=== PATIENT | female | born 1955 | race Caucasian/White ===

== ENCOUNTER 2023-05-05 08:32 | Outpatient (OUT) | payer MEDICARE, OTHER, SELFPAY ==
--- NOTE | 2023-05-05 08:33 | VEIN_ITS ---
Patient: OXANA CASTRO Exam Date: 05/05/2023 : 1955 Gender:F Ordering : NON-STAFF PHYSICIAN Admission #: [id number] Family : Order #: [id number] CLICK HERE TO VIEW EXAM RADIOLOGY REPORT PROCEDURE: FACILITY EST COMPREHENSIVE VEIN CENTER - OFFICE VISIT INITIAL COMPARISON: None. PROGRESS NOTES: [age] year old female who presents with a 5 year history of bulging dilated veins, leg pain, itching, swelling, edema. The patient's left leg symptoms are worse than the right. There has been a progression of symptoms over time with development of stasis dermatitis, cellulitis, chronic edema, hyperpigmentation, and recurrent wounds. This increases with prolonged leg dependency. The patient describes an improvement with rest, elevation, compression stockings. The patient denies any signs and symptoms to suggest arterial ischemia. The patient describes a family history varicose veins on paternal side. The patient has drinking and smoking history of : Occasional alcohol consumption; no tobacco use. Patient has a past medical history significant for diabetes mellitus, obesity, endometrial cancer, deep vein thrombus. The patient describes prior episode of deep venous thrombus. See separate history and physical for medication list. Prior stripping of left small saphenous vein 3 years ago. Current use of compression stockings. After review of nurse notes, history and physical exam I discussed at length the pathophysiology of venous hypertension and possible treatments, therapies and strategies available. We discussed at length the importance of elevating the lower extremities above the level of the heart, increased physical activity and compression stocking use. Ultrasound venous reflux study performed today was discussed at length with the patient. The report demonstrates abnormally dilated and incompetent great saphenous vein bilaterally. Incompetent right small saphenous vein, but dilation does not meet criteria. Markedly dilated and incompetent calf glazier apprentice veins bilaterally. Numerous dilated incompetent branch saphenous varicosities bilaterally. PHYSICAL EXAM: The right leg demonstrates numerous varicosities, scattered spider veins, reoccurring cellulitis/dermatitis, marked edema, marked skin discoloration. The left leg demonstrates numerous varicosities, scattered spider veins, reoccurring wound no current open ulceration, marked edema, marked skin discoloration. Both thighs, legs and feet were symmetrically warm to the touch. Good posterior tibial and dorsalis pedis pulses were present bilaterally. VEIN/[facility] Facility EST Comprehensive IMPRESSION: 1. Marked bilateral lower extremity venous insufficiency 2. Bilateral lower extremity varicose veins 3. Marked bilateral lower extremity subcutaneous edema 4. No flow significant arterial disease 5. CEAP: C5, EC, AP, WI PLAN: 1. Continued use of compression stockings 2. Elevated legs and increased physical activity symptomatic relief 3. Endovenous laser ablation of great saphenous vein bilaterally. 4. Endovenous laser ablation of abnormal calf glazier apprentice vein bilaterally. 5. Re-evaluation of right small saphenous vein after closure of great saphenous vein and glazier apprentice vein. 6. Microfoam chemical ablation of incompetent branch saphenous varicosities bilaterally. 7. Sclerotherapy as needed. Nurse notes, history and physical were reviewed and confirmed, see attached forms. The nurse was present throughout the physical exam and consultation Dictated by: Alan Hernández M.D. on 05/05/2023 at 10:23 Approved by: Alan Hernández M.D. on 05/05/2023 at 10:58
--- NOTE | 2023-05-05 08:33 | VEIN_ITS ---
Patient: OXANA CASTRO Exam Date: 05/05/2023 : 1955 Gender:F Ordering : NON-STAFF PHYSICIAN Admission #: [id number] Family : Order #: [id number] CLICK HERE TO VIEW EXAM RADIOLOGY REPORT PROCEDURE: VC EXT VENOUS REFLUX KOBI LMTD COMPARISON: None. INDICATIONS: I83.813 Pain due to varicose veins of bilateral leg veins TECHNIQUE: Duplex imaging of the lower extremity to assess the deep and superficial venous system for the presence of deep or superficial venous incompetence and to document the location and severity of disease. The study includes evaluation of the great saphenous vein (GSV), anterior accessory saphenous vein (AASV) and small saphenous vein (SSV). Patient scanned in reverse Trendelenburg and standing. FINDINGS: RIGHT LOWER EXTREMITY: Saphenofemoral Junction Reflux: Yes 12.7mm 3.2 sec GSV: Diam (mm) Reflux/ Time (sec) Proximal Thigh 9.7 Yes 2.5 Mid Thigh 8.3 Yes 2.9 Distal Thigh 7.5 Yes 3.1 Prox Calf 7.7 Yes 0.9 Mid Calf 7.3 Yes 1.8 Saphenopopliteal Junction Reflux: 3.3mm Yes 0.9 SSV: Proximal Calf 3.1 Yes 1.6 Mid Calf 4.1 No AASV: Not present Proximal Thigh Mid Thigh Distal Thigh Thrombi: No acute or chronic thrombus visualized Compressibility: Normal Flow: Normal Preforator: Dist/med calf 4.6mm with 1.4s reflux. Tech Note: Incompetent SFJ and GSV. Hypoechoic avascular structure visualized in pop fossa measuring 2.9 x 1.7 x 4.3 cm. Patent varicose vein mid/med calf 4.6mm with 2.0s reflux. Patent varicose vein mid/med thigh 4.7mm with 0s reflux. LEFT LOWER EXTREMITY: Saphenofemoral Junction Reflux: Yes 1.3 mm 3.3 sec GSV: Diam (mm) Reflux/Time (sec) Proximal Thigh 10.7 Yes 2.5 Mid Thigh 2.3 No Distal Thigh 1.9 No Prox Calf 5.8 Yes 2.7 Mid Calf 4.8 Yes 1.4 Saphenopopliteal Junction Relux: N/A SSV: Proximal Calf N/A Mid Calf N/A AASV: Proximal Thigh 5.3 No Mid Thigh 3.0 No Distal Thigh Thrombi: No acute or chronic thrombus visualized Compressibility: Normal Flow: Normal Coal Trimmer: Mid/med calf 7.5mm with 2.0s reflux. Tech Note: Incompetent SFJ and GSV. SSV has been previously ablated. Patent varicose vein mid/med calf 10.1mm with 0.9s reflux. Patent varicose vein dist/med thigh 0.4mm with 1.3s reflux. Patent varicose vein mid/med thigh off of GSV 10.0 mm with 1.5s reflux. CONCLUSION: 1. Abnormally dilated and incompetent great saphenous vein bilaterally. 2. Abnormally dilated and incompetent fork lift technician vein within lower leg bilaterally adjacent to recurring wounds and cellulitis. 3. Numerous incompetent and abnormally dilated branch saphenous varicosities bilaterally. Dictated by: Alan Hernández M.D. on 05/05/2023 at 09:49 Approved by: Alan Hernández M.D. on 05/05/2023 at 10:13
== END 2023-05-05 08:33 | disposition home or self-care (01) ==
DX: I83.813 Varicose veins of bilateral lower extremities with pain (principal); R60.0 Localized edema; I89.0 Lymphedema, not elsewhere classified; I87.2 Venous insufficiency (chronic) (peripheral); I83.893 Varicose veins of bilateral lower extremities with other complications; L03.90 Cellulitis, unspecified
CPT/HCPCS: 93970; G0463

== ENCOUNTER 2023-05-08 12:26 | Outpatient (OUT) | payer MEDICARE, OTHER, SELFPAY ==
--- NOTE | 2023-05-08 | VEIN_ITS ---
The [address] [address] Patient Name: OXANA CASTRO MRN: [id number] date: 1955 Sex: F Assigned Patient Location: Current Patient Location: Accession/Order Number: [id number] Exam Date: 05/08/2023 12:35 Report Date: 05/08/2023 14:26 At the request of: COLTON HAMLIN Procedure: VC Endovenous Ablation 1VeinRT EXAMINATION: VC Endovenous Ablation 1VeinRT HISTORY: Pain due to varicose veins of bilateral legs I83.813 The risks and benefits of the procedure had been previously discussed, and were rediscussed at length. Informed written consent was obtained. Lavinia Godfrey RN and Yulisa Sellers RDMS assisted. Time out procedure was performed. The right lower extremity was prepared and draped in the usual sterile fashion to allow knee flexion in the sterile field. Duplex ultrasound probe was draped in a sterile cover, sterile transmission gel was used. Venous mapping was performed with the areas of dilation and large tributaries marked. The total length was 61 cm from the entry for cm above the medial malleolus to 3 cm below the saphenofemoral junction. The diameter of the greater saphenous vein ranged from 9.7 mm. A 30 gauge needle and 1% buffered lidocaine was used to anesthetize the entry site. A 4 mm incision was made with a scalpel and the saphenous vein was entered percutaneously under direct ultrasound guidance with a micropuncture set, a single stick was successful in gaining access. A micro-guide wire was inserted and the needle removed. A micro-set including a dilator was inserted over the microwire and the needle and dilator were removed. A guide wire was inserted through the micro-set and guided through the saphenous vein to the saphenofemoral junction. The dilator was removed and an introducer sheath was inserted over the wire until the end of the sheath entered the saphenofemoral junction. The dilator and wire were removed and the 600 micron fiber was introduced and placed and positioned so that it extended beyond the sheath and was 3 cm distal to the saphenofemoral femoral junction. Final position of the fiber was determined by ultrasound guidance and duplex imaging. Tumescent anesthetic was delivered by ultrasound guidance. 300 cc of fluid was delivered along the entire course of the saphenous vein. The solution consisted of 1000 cc of normal saline with 40 mL of 1% lidocaine and 20 mL of sodium bicarbonate. A final positioning check was made. The energy source was turned on by means of the foot pedal and the fiber and sheath were withdrawn. The total number of Joules delivered was 3417. The laser was active for coronary 27seconds under continuous pulse, average laser use of 8 J. Laser start time 1:30 PM, 05/08/2023. Laser stop time 1:38 PM, 05/08/2023. A duplex ultrasound revealed compressibility and flow at the saphenofemoral junction immediately after the procedure. Hemostasis at the access site was achieved. The skin incision of the saphenous vein was closed with a 4 x 4. A compression stocking was applied. Postop instructions were given. A follow up appointment was recommended and scheduled. The patient tolerated the procedure well. Electronically authenticated by: MAVIS HERNANDEZ Date: 05/08/2023 14:26
[2023-05-08] MEDS: 0.9 % SODIUM CHLORIDE 500 ML, LIDOCAINE HCL 20 ML, SODIUM BICARBONATE 10 MEQ INJ (13:31)
[2023-05-08] MEDS: LIDOCAINE HCL 10 ML, SODIUM BICARBONATE 1 MEQ INJ (13:32)
== END 2023-05-08 12:27 | disposition home or self-care (01) ==
LOC: VC 12:26
PROVIDERS: PCP Radiology Diagnostic Radiology; Visit Provider Radiology Diagnostic Radiology
DX: I80.01 Phlebitis and thrombophlebitis of superficial vessels of right lower extremity (principal)
CPT/HCPCS: 36478

== ENCOUNTER 2023-05-11 09:02 | Outpatient (OUT) | payer MEDICARE, OTHER, SELFPAY ==
--- NOTE | 2023-05-11 09:06 | VEIN_ITS ---
Patient: OXANA CASTRO Exam Date: 05/11/2023 : 1955 Gender:F Ordering : DR COLTON HAMLIN M.D. Admission #: [id number] Family : Order #: [id number] CLICK HERE TO VIEW EXAM RADIOLOGY REPORT PROCEDURE: VC EXT VENOUS RT LMTD COMPARISON: None. INDICATIONS: I80.01 Phlebitis of superficial veins of rt lower extremity TECHNIQUE: Lower extremity samson scale and Duplex Doppler evaluation of the deep venous system from the inguinal ligament through the calf veins. FINDINGS: REGION: Right lower extremity. THROMBI: Negative for DVT. Heat induced thrombus in right GSV 2.0 cm from SFJ and extends to distal calf. Associated perf proximal lower leg also thrombosed. COMPRESSIBILITY: Non-compressible segments. FLOW: Areas of no flow. OTHER: CONCLUSION: 1. Successful post ablation occlusion of right great saphenous vein. Dictated by: Alan Hernández M.D. on 05/11/2023 at 13:20 Approved by: Alan Hernández M.D. on 05/11/2023 at 13:21
--- NOTE | 2023-05-11 09:06 | VEIN_ITS ---
Patient: OXANA CASTRO Exam Date: 05/11/2023 : 1955 Gender:F Ordering : DR COLTON HAMLIN M.D. Admission #: [id number] Family : Order #: [id number] CLICK HERE TO VIEW EXAM RADIOLOGY REPORT PROCEDURE: FACILITY EST LMTD VEIN CENTER - OFFICE VISIT FOLLOW UP COMPARISON: None. PROGRESS NOTES: The patient reports improvement in leg symptoms. There has been interval reduction in varicosities. The patient has followed our recommendations to walk 20-30 minutes once or twice per day since the procedure. Physical exam demonstrates decrease in varicosities of the leg. Persistent incompetent varicosities are identified along the right and left leg. Review of the ultrasound performed the same day demonstrates occlusive thrombus extending throughout the treated vein(s), see separate report, consistent with a successful ablation. No thrombus extending into or beyond the saphenofemoral junction. The patient expressed a desire to proceed with treatment of remaining incompetent varicosities. The patient was informed that treatment was a process and would require several procedures/sessions. VEIN/ Facility EST LMTD IMPRESSION: 1. Successful ablation of the right great saphenous vein(s). 2. Persistent incompetent varicose veins and bilateral lower extremity symptoms. PLAN: Endovenous laser ablation of left great saphenous vein. Nurse notes, history and physical were reviewed and confirmed, see attached forms. The nurse was present throughout the physical exam and consultation Dictated by: Alan Hernández M.D. on 05/11/2023 at 13:21 Approved by: Alan Hernández M.D. on 05/11/2023 at 13:23
== END 2023-05-11 09:03 | disposition home or self-care (01) ==
LOC: VC 09:04
PROVIDERS: PCP Radiology Diagnostic Radiology; Visit Provider Radiology Diagnostic Radiology
DX: I80.01 Phlebitis and thrombophlebitis of superficial vessels of right lower extremity (principal)
CPT/HCPCS: 93971; G0463

== ENCOUNTER 2023-05-20 10:25 | Outpatient (OUT) | payer MEDICARE, OTHER, SELFPAY ==
--- NOTE | 2023-05-20 | VEIN_ITS ---
The [address] [address] Patient Name: OXANA CASTRO MRN: [id number] date: 1955 Sex: F Assigned Patient Location: Current Patient Location: Accession/Order Number: [id number] Exam Date: 05/20/2023 10:30 Report Date: 05/20/2023 12:45 At the request of: COLTON HAMLIN Procedure: VC Endovenous Ablation 1VeinLT EXAMINATION: VC Endovenous Ablation 1VeinLT HISTORY: Pain due to varicose veins of bilateral legs I83.813 The risks and benefits of the procedure had been previously discussed, and were rediscussed at length. Informed written consent was obtained. Julien Panda RN and uYlisa Sellers RDMS assisted. Time out procedure was performed. The left lower extremity was prepared and draped in the usual sterile fashion to allow knee flexion in the sterile field. Duplex ultrasound probe was draped in a sterile cover, sterile transmission gel was used. Venous mapping was performed with the areas of dilation and large tributaries marked. The total length was 32 cm from the entry distal thigh to 3 cm below the Saphenofemoral junction. The diameter of the greater saphenous vein ranged from 10.7 mm. A 30 gauge needle and 1% buffered lidocaine was used to anesthetize the entry site. A 4 mm incision was made with a scalpel and the saphenous vein was entered percutaneously under direct ultrasound guidance with a micropuncture set, a single stick was successful in gaining access. A micro-guide wire was inserted and the needle removed. A micro-set including a dilator was inserted over the microwire and the needle and dilator were removed. A guide wire was inserted through the micro-set and guided through the saphenous vein to the saphenofemoral junction. The dilator was removed and an introducer sheath was inserted over the wire until the end of the sheath entered the saphenofemoral junction. The dilator and wire were removed and the 600 micron fiber was introduced and placed and positioned so that it extended beyond the sheath and was 3 cm distal to the saphenofemoral or saphenopopliteal junction. Final position of the fiber was determined by ultrasound guidance and duplex imaging. Tumescent anesthetic was delivered by ultrasound guidance. 2025 cc of fluid was delivered along the entire course of the saphenous vein. The solution consisted of 1000 cc of normal saline with 40 mL of 1% lidocaine and 20 mL of sodium bicarbonate. A final positioning check was made. The energy source was turned on by means of the foot pedal and the fiber and sheath were withdrawn. The total number of Joules delivered was 1643. The laser was active for 205 seconds under continuous pulse, average laser use of 8 J. Laser start time 11:17 AM, 05/20/2023. Laser stop time 11:20 AM, 05/20/2023. A duplex ultrasound revealed compressibility and flow at the saphenofemoral junction immediately after the procedure. Hemostasis at the access site was achieved. The skin incision of the saphenous vein was closed with a 4 x 4. A compression stocking was applied. Postop instructions were given. A follow up appointment was recommended and scheduled. The patient tolerated the procedure well. Electronically authenticated by: MAVIS HERNANDEZ Date: 05/20/2023 12:45
[2023-05-20] MEDS: 0.9 % SODIUM CHLORIDE 500 ML, LIDOCAINE HCL 20 ML, SODIUM BICARBONATE 10 MEQ INJ (10:57)
[2023-05-20] MEDS: LIDOCAINE HCL 10 ML, SODIUM BICARBONATE 1 MEQ INJ (10:59)
== END 2023-05-20 10:26 | disposition home or self-care (01) ==
LOC: VC 10:25
PROVIDERS: PCP Radiology Diagnostic Radiology; Visit Provider Radiology Diagnostic Radiology
DX: I83.813 Varicose veins of bilateral lower extremities with pain (principal); I80.02 Phlebitis and thrombophlebitis of superficial vessels of left lower extremity
CPT/HCPCS: 36478

== ENCOUNTER 2023-05-27 09:26 | Outpatient (OUT) | payer MEDICARE, OTHER, SELFPAY ==
--- NOTE | 2023-05-27 09:27 | VEIN_ITS ---
Patient: OXANA CASTRO Exam Date: 05/27/2023 : 1955 Gender:F Ordering : DR MICHELE MCCALL M.D. Admission #: [id number] Family : Order #: [id number] CLICK HERE TO VIEW EXAM RADIOLOGY REPORT PROCEDURE: VC EXT VENOUS LT LIMITED COMPARISON: None. INDICATIONS: I80.02 Phlebitis of superficial veins of left lower extremity TECHNIQUE: Lower extremity samson scale and Duplex Doppler evaluation of the deep venous system from the inguinal ligament through the calf veins. FINDINGS: REGION: Left lower extremity. THROMBI: Negative for DVT. Heat induced thrombus in left GSV 1.3 cm from SFJ and extends to distal thigh/medial knee. COMPRESSIBILITY: Non-compressible segments. FLOW: Absent flow corresponding to thrombus CONCLUSION: Post ablation occlusion of the left great saphenous vein with heat induced thrombus 1.3 cm from the saphenofemoral junction Dictated by: Michele Mccall MD on 05/27/2023 at 09:46 Approved by: Michele Mccall MD on 05/27/2023 at 09:46
--- NOTE | 2023-05-27 09:27 | VEIN_ITS ---
Patient: OXANA CASTRO Exam Date: 05/27/2023 : 1955 Gender:F Ordering : DR MICHELE MCCALL M.D. Admission #: [id number] Family : Order #: [id number] CLICK HERE TO VIEW EXAM RADIOLOGY REPORT PROCEDURE: [facility] EST LMTD VEIN CENTER - OFFICE VISIT FOLLOW UP [facility]. PROGRESS NOTES: The patient reports improvement no problems following intravenous laser ablation of the left great saphenous vein. The patient does report some improvement in her initial presenting symptoms. The patient does continue to wear her compression wraps as directed. The patient has followed our recommendations to walk 20-30 minutes once or twice per day since the procedure. Physical exam demonstrates extensive hemosiderin staining in swelling involving both legs below the knee extending into the ankles and feet. No areas of erythema or warmth. No significant bruising from the procedure. No evidence of cellulitis or thrombophlebitis Review of the ultrasound performed the same day demonstrates occlusive thrombus extending throughout the treated left great saphenous vein with heat induced thrombus 1.3 cm from the saphenofemoral junction. The patient expressed a desire to proceed with treatment of incompetent perforating veins. VEIN/[facility] EST LMTD IMPRESSION: 1. Successful ablation of the left great saphenous vein 2. Persistent incompetent bilateral perforating veins PLAN: Intravenous laser ablation bilateral incompetent perforating veins Nurse notes, history and physical were reviewed and confirmed, see attached forms. The nurse was present throughout the physical exam and consultation Dictated by: Michele Mccall MD on 05/27/2023 at 10:06 Approved by: Michele Mccall MD on 05/27/2023 at 10:09
== END 2023-05-27 09:27 | disposition home or self-care (01) ==
LOC: VC 09:26
PROVIDERS: PCP Radiology Diagnostic Radiology; Visit Provider Radiology Diagnostic Radiology
DX: I80.02 Phlebitis and thrombophlebitis of superficial vessels of left lower extremity (principal)
CPT/HCPCS: 93971; G0463

== ENCOUNTER 2023-06-04 10:28 | Outpatient (OUT) | payer MEDICARE, OTHER, SELFPAY ==
--- NOTE | 2023-06-04 10:29 | VEIN_ITS ---
[address] [address] Patient Name: OXANA CASTRO MRN: [id number] date: 1955 Sex: F Assigned Patient Location: Current Patient Location: Accession/Order Number: [id number] Exam Date: 06/04/2023 10:30 Report Date: 06/04/2023 11:56 At the request of: COLTON HAMLIN Procedure: VC Endovenous Perf Ablation RT EXAMINATION: VC Endovenous Perf Ablation RT COMPARISON: INDICATIONS: I83.813 Pain due to varicose veins of bilateral legs OPERATIVE REPORT: Diagnosis: Superficial venous reflux, incompetent perforating veins Procedure: Endovenous laser ablation of the right store assistant(s) Procedure: The patient was positioned supine on the table and the leg was prepped and draped to allow for visualization during venous access. A sterile cover was draped over a 16 mhz ultrasound probe. Venous mapping was performed prior to the procedure noting location and size of vessel(s). Chemical Radiation Technician vein 1: Distal medial right lower extremity. The diameter of the vein ranged from 4.6 mm's below the muscular fascia to 4.6 mm's at the entry point. Using a 30 gauge needle the entry site was anesthetized with 0.5 cc of 1% buffered lidocaine. Access was gained percutaneously, with a 21-gauge needle, into the store assistant vein under ultrasound guidance. The needle was advanced into the desired position and the pre-measured 400-micron fiber was then inserted into the needle and locked in place. The position of the fiber was imaged with ultrasound guidance. The fiber tip was visualized to be 10 mm from the deep vessel. An anesthetic solution of 2 cc 1% buffered lidocaine was delivered along the course of the vein under ultrasound guidance using a syringe. A final positioning check of the laser fiber tip was performed. The laser was activated by means of a foot-pedal and the fiber and needle were withdrawn together in accordance to the desired joules per treatment area/spot weld. 3 areas/spot welds were performed, and the total number of joules delivered was 193. The total time of energy delivery was 24 seconds. A duplex ultrasound revealed compressibility and flow of the deep system immediately after the procedure. Hemostasis of the access site was achieved and dressed. A 20-30 mm compression stocking over coban was placed on the treated leg. Post-Op instructions were given, and a follow-up appointment was made. CONCLUSION: 1. Technically successful endovenous laser ablation of 1 distal right lower extremity store assistant vein. Electronically authenticated by: MAVIS HERNANDEZ Date: 06/04/2023 11:56
[2023-06-04] MEDS: LIDOCAINE HCL 20 ML, SODIUM BICARBONATE 2 MEQ INJ (11:13)
== END 2023-06-04 10:29 | disposition home or self-care (01) ==
LOC: VC 10:28
PROVIDERS: PCP Radiology Diagnostic Radiology; Visit Provider Radiology Diagnostic Radiology
DX: I83.813 Varicose veins of bilateral lower extremities with pain (principal)
CPT/HCPCS: 36478

== ENCOUNTER 2023-06-18 09:06 | Outpatient (OUT) | payer MEDICARE, OTHER, SELFPAY ==
--- NOTE | 2023-06-18 09:37 | VEIN_ITS ---
Patient: OXANA CASTRO Exam Date: 06/18/2023 : 1955 Gender:F Ordering : DR MICHELE MCCALL M.D. Admission #: [id number] Family : Order #: [id number] CLICK HERE TO VIEW EXAM RADIOLOGY REPORT PROCEDURE: FACILITY EST LMTD VEIN CENTER - OFFICE VISIT FOLLOW UP COMPARISON: FACILITY EST LMTD, 05/27/2023. FACILITY EST LMTD, 05/11/2023. PROGRESS NOTES: The patient reports no significant problems following intravenous laser ablation of right leg incompetent perforating veins. The patient did not require oral analgesics. The patient does report increased redness and new small ulcerations throughout the right leg similar to a prior process where she was diagnosed with a fungal infection and placed on Diflucan. Physical exam demonstrates asymmetric erythema and warmth of the right leg below the knee. The patient has marked bilateral below knee subcutaneous edema, skin thickening and hemosiderin staining. Multiple small areas of skin ulceration are noted on the right leg measuring from 5-1 cm in size. There is an eschar over an area of active ulceration on the medial right ankle. Review of the ultrasound performed the same day demonstrates occlusive thrombus extending throughout the treated right leg incompetent perforating vein and varicose veins. The patient expressed a desire to proceed with treatment of incompetent left leg perforating veins. The patient was referred back to the wound Center for treatment of her right leg erythema, I suspect cellulitis, the patient had an appointment at 3:15 a.m. In the afternoon 06/18/2023 VEIN/ Facility EST LMTD IMPRESSION: 1. Successful ablation of incompetent right leg perforating veins 2. Persistent incompetent left leg perforating veins. PLAN: Intravenous laser ablation left leg incompetent perforating veins Follow-up with wound Center for possible right leg cellulitis Nurse notes, history and physical were reviewed and confirmed, see attached forms. The nurse was present throughout the physical exam and consultation Dictated by: Michele Mccall MD on 06/18/2023 at 11:38 Approved by: Michele Mccall MD on 06/18/2023 at 11:40
--- NOTE | 2023-06-18 09:37 | VEIN_ITS ---
Patient: OXANA CASTRO Exam Date: 06/18/2023 : 1955 Gender:F Ordering : DR MICHELE MCCALL M.D. Admission #: [id number] Family : Order #: [id number] CLICK HERE TO VIEW EXAM RADIOLOGY REPORT PROCEDURE: VC EXT VENOUS RT LMTD COMPARISON: VC EXT VENOUS RT LMTD, 05/11/2023. INDICATIONS: Phlebitis of superficial veins of rt. lower extremity I80.01 TECHNIQUE: Lower extremity samson scale and Duplex Doppler evaluation of the deep venous system from the inguinal ligament through the calf veins. FINDINGS: REGION: Right lower extremity. THROMBI: Negative for DVT. Heat induced thrombus visualized at distal/medial calf with closure of the treated perforating vein. COMPRESSIBILITY: Non-compressible segments corresponding to thrombus. FLOW: Absent flow corresponding to thrombus CONCLUSION: Post ablation occlusion of treated right leg incompetent perforating veins Dictated by: Michele Mccall MD on 06/18/2023 at 10:11 Approved by: Michele Mccall MD on 06/18/2023 at 10:12
== END 2023-06-18 09:07 | disposition home or self-care (01) ==
LOC: VC 09:07
PROVIDERS: PCP Radiology Diagnostic Radiology; Visit Provider Radiology Diagnostic Radiology
DX: I80.01 Phlebitis and thrombophlebitis of superficial vessels of right lower extremity (principal)
CPT/HCPCS: 93971; G0463

== ENCOUNTER 2023-07-01 07:25 | Outpatient (OUT) | payer MEDICARE, OTHER, SELFPAY ==
--- NOTE | 2023-07-01 07:28 | VEIN_ITS ---
[address] [address] Patient Name: OXANA CASTRO MRN: [id number] date: 1955 Sex: F Assigned Patient Location: Current Patient Location: Accession/Order Number: [id number] Exam Date: 07/01/2023 07:35 Report Date: 07/01/2023 08:34 At the request of: COLTON HAMLIN Procedure: VC Endovenous Perf Ablation LT EXAMINATION: VC Endovenous Perf Ablation LT COMPARISON: INDICATIONS: Pain due to varicose veins of bilateral legs I83.813 OPERATIVE REPORT: Diagnosis: Superficial venous reflux, incompetent perforating veins Procedure: Endovenous laser ablation of the left senior database administrator(s) Procedure: The patient was positioned supine on the table and the leg was prepped and draped to allow for visualization during venous access. A sterile cover was draped over a 16 mhz ultrasound probe. Venous mapping was performed prior to the procedure noting location and size of vessel(s). Commissioned Police Officer vein 1: Left mid medial lower leg. The diameter of the vein ranged from 7.5 mm's below the muscular fascia to 7.5 mm's at the entry point. Using a 30 gauge needle the entry site was anesthetized with 0.5 cc of 1% buffered lidocaine. Access was gained percutaneously, with a 21-gauge needle, into the senior database administrator vein under ultrasound guidance. The needle was advanced into the desired position and the pre-measured 400-micron fiber was then inserted into the needle and locked in place. The position of the fiber was imaged with ultrasound guidance. The fiber tip was visualized to be 10 mm from the deep vessel. An anesthetic solution of 2 cc 1% buffered lidocaine was delivered along the course of the vein under ultrasound guidance using a syringe. A final positioning check of the laser fiber tip was performed. The laser was activated by means of a foot-pedal and the fiber and needle were withdrawn together in accordance to the desired joules per treatment area/spot weld. 3 areas/spot welds were performed, and the total number of joules delivered was 183. The total time of energy delivery was 23 seconds. A duplex ultrasound revealed compressibility and flow of the deep system immediately after the procedure. Hemostasis of the access site was achieved and dressed. A 20-30 mm compression stocking over coban was placed on the treated leg. Post-Op instructions were given, and a follow-up appointment was made. Commissioned Police Officer vein 2: Left mid anterior lower leg. The diameter of the vein ranged from 3 mm's below the muscular fascia to 3 mm's at the entry point. Using a 30 gauge needle the entry site was anesthetized with 0.5 cc of 1% buffered lidocaine. Access was gained percutaneously, with a 21-gauge needle, into the senior database administrator vein under ultrasound guidance. The needle was advanced into the desired position and the pre-measured 400-micron fiber was then inserted into the needle and locked in place. The position of the fiber was imaged with ultrasound guidance. The fiber tip was visualized to be 10 mm from the deep vessel. An anesthetic solution of 2 cc 1% buffered lidocaine was delivered along the course of the vein under ultrasound guidance using a syringe. A final positioning check of the laser fiber tip was performed. The laser was activated by means of a foot-pedal and the fiber and needle were withdrawn together in accordance to the desired joules per treatment area/spot weld. 3 areas/spot welds were performed, and the total number of joules delivered was 181. The total time of energy delivery was 23 seconds. A duplex ultrasound revealed compressibility and flow of the deep system immediately after the procedure. Hemostasis of the access site was achieved and dressed. A 20-30 mm compression stocking over coban was placed on the treated leg. Post-Op instructions were given, and a follow-up appointment was made. CONCLUSION: 1. Technically successful endovenous laser ablation of 2 left lower extremity senior database administrator veins Electronically authenticated by: MAVIS HERNANDEZ Date: 07/01/2023 08:34
[2023-07-01] MEDS: LIDOCAINE HCL 20 ML, SODIUM BICARBONATE 2 MEQ INJ (07:51)
== END 2023-07-01 07:26 | disposition home or self-care (01) ==
LOC: VC 07:26
PROVIDERS: PCP Radiology Diagnostic Radiology; Visit Provider Radiology Diagnostic Radiology
DX: I83.813 Varicose veins of bilateral lower extremities with pain (principal)
CPT/HCPCS: 36478

== ENCOUNTER 2023-07-16 08:55 | Outpatient (OUT) | payer MEDICARE, OTHER, SELFPAY ==
--- NOTE | 2023-07-16 08:56 | VEIN_ITS ---
Patient: OXANA CASTRO Exam Date: 07/16/2023 : 1955 Gender:F Ordering : DR MICHELE MCCALL M.D. Admission #: [id number] Family : Order #: [id number] CLICK HERE TO VIEW EXAM RADIOLOGY REPORT PROCEDURE: VC EXT VENOUS LT LIMITED COMPARISON: VC EXT VENOUS LT LIMITED, 05/27/2023. INDICATIONS: I80.02 Phlebitis of superficial veins of lt lower extremity TECHNIQUE: Lower extremity samson scale and Duplex Doppler evaluation of the deep venous system from the inguinal ligament through the calf veins. FINDINGS: REGION: Left lower extremity. THROMBI: Negative for DVT. Heat induced thrombus visualized at mid/med calf director of career resources and mid/ant calf director of career resources COMPRESSIBILITY: Non-compressible segments corresponding to thrombus. FLOW: Absent flow corresponding to thrombus CONCLUSION: Post ablation occlusion of treated left leg perforating veins Dictated by: Michele Mccall MD on 07/16/2023 at 09:15 Approved by: Michele Mccall MD on 07/16/2023 at 09:16
--- NOTE | 2023-07-16 08:56 | VEIN_ITS ---
Patient: OXANA CASTRO Exam Date: 07/16/2023 : 1955 Gender:F Ordering : DR MICHELE MCCALL M.D. Admission #: [id number] Family : Order #: [id number] CLICK HERE TO VIEW EXAM RADIOLOGY REPORT PROCEDURE: FACILITY EST LMTD VEIN CENTER - OFFICE VISIT FOLLOW UP COMPARISON: FACILITY EST LMTD, 06/18/2023. FACILITY EST LMTD, 05/27/2023. PROGRESS NOTES: The patient reports no significant problems or pain following intravenous laser ablation of left leg incompetent perforating veins. The patient has worn her compression stockings. There has been interval reduction in varicosities. The patient has followed our recommendations to walk 20-30 minutes once or twice per day since the procedure. The patient reports improvement of her symptoms compared to her initial presenting exam Physical exam demonstrates extensive lower extremity swelling and erythema. Thick flanking skin is noted bilaterally right greater than left. No areas of active ulceration Review of the ultrasound performed the same day demonstrates occlusive thrombus extending throughout the treated left leg perforating veins. Extensive bilateral incompetent varicose veins. The patient expressed a desire to proceed with treatment of incompetent varicose veins with micro foam chemical ablation. VEIN/ Facility EST LMTD IMPRESSION: 1. Successful ablation of treated incompetent left leg perforating veins 2. Persistent bilateral incompetent varicose veins. PLAN: Micro foam chemical ablation right leg incompetent varicose veins Nurse notes, history and physical were reviewed and confirmed, see attached forms. The nurse was present throughout the physical exam and consultation Dictated by: Michele Mccall MD on 07/16/2023 at 10:58 Approved by: Michele Mccall MD on 07/16/2023 at 11:00
== END 2023-07-16 08:56 | disposition home or self-care (01) ==
LOC: VC 08:55
PROVIDERS: PCP Radiology Diagnostic Radiology; Visit Provider Radiology Diagnostic Radiology
DX: I80.02 Phlebitis and thrombophlebitis of superficial vessels of left lower extremity (principal)
CPT/HCPCS: 93971; G0463

== ENCOUNTER 2023-07-23 09:02 | Outpatient (OUT) | payer MEDICARE, OTHER, SELFPAY ==
--- NOTE | 2023-07-23 09:04 | VEIN_ITS ---
The [address] [address] Patient Name: OXANA CASTRO MRN: [id number] date: 1955 Sex: F Assigned Patient Location: Current Patient Location: Accession/Order Number: [id number] Exam Date: 07/23/2023 09:04 Report Date: 07/23/2023 10:01 At the request of: COLTON HAMLIN Procedure: VC INJ Foam Sclerosant WUS PRE PAROLE COUNSELING AIDE PROCEDURE: VC INJ Foam Sclerosant WUS PRE PAROLE COUNSELING AIDE HISTORY: Pain due to varicose veins of bilateral legs I83.813 Pre-operative Diagnosis: CEAP class C5 venous insufficiency with pain, tenderness, edema and incompetent branch saphenous vein(s), chronic venous insufficiency right leg secondary to venous incompetence Post-operative Diagnosis: CEAP class C5 venous insufficiency with pain, tenderness, edema and incompetent branch saphenous vein(s), chronic venous insufficiency right leg secondary to venous incompetence Procedure Performed: 1. Ultrasound-guided microfoam chemical ablation with Varithenaregistered 2. Intraoperative ultrasound guidance Physician: Alan Hernández M.D. Anesthesia: None Indications for Procedure: 68 year old female. Symptoms including lower extremity pain, swelling, skin changes, dilated bulging veins for many years despite conservative medical therapy including medical compression stockings, exercise and analgesics. Prior procedures include endovenous laser ablation. Multiple incompetent varicosities of the right leg. Duplex scan showed reflux and enlarged diameters up to 8 mm. The patient underwent informed consent including management options where the complications of infection, bleeding, pain, and skin injury were discussed. Particular attention was spent discussing thrombus extension and deep vein thrombosis as well as the possibility of pulmonary embolus and treatment with oral or injectable blood thinners. Procedure: The patient walked to the procedure room. All applicable staff donned appropriate apparel. A procedure timeout was performed to confirm correct patient, correct extremity, correct procedure, and correct room set-up including presence of all applicable supplies, devices, and drugs. A duplex ultrasound, performed by myself confirmed the location and incompetence of branch saphenous varicosities and their course was marked on the skin together with the dilated tributaries. The extent of treatment of the vein and the associated varicosities was determined through ultrasound mapping. The skin was prepped and then punctured with a butterfly needle and advanced under ultrasound guidance. The Varithenaregistered canister was activated and the canister was primed and purged as required in the instructions for use. Varithenaregistered was drawn into a sterile syringe. Varithenaregistered was slowly administered at 0.5-1.0 cc/second with close observation by ultrasound of its course in the vessels. Total volume utilized was: 15 mL injected into an 8 mm varicosity within the mid medial lower left leg. Following administration of Varithenaregistered the leg was elevated and the patient was asked to repeatedly dorsiflex the ankle to limit flow of Varithenaregistered into perforating veins. Once appropriate spasm had been confirmed in the treated veins, the vascular catheter was removed from the leg and light pressure was applied over the puncture site for hemostasis. The common femoral and deep superficial veins were then evaluated for flow and compressibility prior to dressing placement. The lower extremity was kept elevated at 45 degrees above the horizontal and cording material was applied over the saphenous segments and tributaries to allow for eccentric compression over the target vessels including the targeted saphenous vein(s). A multilayer dressing was applied consisting of foam pads, coban and thigh-high 20-30 mm Hg compression elastic support hose were placed on the patient. The leg was lowered only after compression had been applied and the patient was immediately ambulatory. The patient ambulated 10 minutes under supervision and was without apparent concerns at time of release. Post-care instructions include advising patient to keep post-treatment bandages in place and dry for 48 hours, avoid extended periods of inactivity, avoid heavy exercise for one week, wear compression stockings on the treated leg continuously for two weeks, to walk daily for 10 minutes over the next month. The patient was instructed to take an anti-inflammatory medicine as needed and to follow up for color duplex scan of the Saphenous veins, the treated branch saphenous varicosities, the adjacent deep veins, and additional treatment within 7 days. PERSONNEL: Cooper Keith RDMS Electronically authenticated by: ALAN HERNÁNDEZ Date: 07/23/2023 10:01
== END 2023-07-23 09:03 | disposition home or self-care (01) ==
LOC: VC 09:03
PROVIDERS: PCP Radiology Diagnostic Radiology; Visit Provider Radiology Diagnostic Radiology
DX: I83.813 Varicose veins of bilateral lower extremities with pain (principal)
CPT/HCPCS: 36466

== ENCOUNTER 2023-07-29 08:37 | Outpatient (OUT) | payer MEDICARE, OTHER, SELFPAY ==
--- NOTE | 2023-07-29 | VEIN_ITS ---
Patient: OXANA CASTRO Exam Date: 07/29/2023 : 1955 Gender:F Ordering : DR MICHELE MCCALL M.D. Admission #: [id number] Family : Order #: [id number] CLICK HERE TO VIEW EXAM RADIOLOGY REPORT PROCEDURE: VC EXT VENOUS RT LMTD COMPARISON: VC EXT VENOUS RT LMTD, 06/18/2023. VC EXT VENOUS RT LMTD, 05/11/2023. INDICATIONS: I80.01 Phlebitis of superficial veins of rt lower extremity TECHNIQUE: Lower extremity samson scale and Duplex Doppler evaluation of the deep venous system from the inguinal ligament through the calf veins. FINDINGS: REGION: Right lower extremity. THROMBI: Negative for DVT. Areas treated with Varithena/microfoam are seen with thrombus. COMPRESSIBILITY: Non-compressible segments. FLOW: Absent flow related to thrombus OTHER: Patent varicose vein distal posterior ankle and measures 2.9 mm with 0.8s of reflux. Patent varicose vein proximal anterior lower leg measures 3.7 mm with 0.8s of reflux. CONCLUSION: Post ablation occlusion of treated right leg varicose veins with residual bilateral incompetent varicose veins Dictated by: Michele Mccall MD on 07/29/2023 at 09:12 Approved by: Michele Mccall MD on 07/29/2023 at 09:13
--- NOTE | 2023-07-29 | VEIN_ITS ---
Patient: OXANA CASTRO Exam Date: 07/29/2023 : 1955 Gender:F Ordering : DR MICHELE MCCALL M.D. Admission #: [id number] Family : Order #: [id number] CLICK HERE TO VIEW EXAM RADIOLOGY REPORT PROCEDURE: FACILITY EST LMTD VEIN CENTER - OFFICE VISIT FOLLOW UP COMPARISON: FACILITY EST LMTD, 07/16/2023. FACILITY EST LMTD, 06/18/2023. PROGRESS NOTES: The patient reports no significant problems following micro foam chemical ablation of right leg incompetent varicose veins. The patient did not require oral analgesics. She has worn her compression wraps. The patient has tried exercise to the best of her ability physical limitations. Physical exam demonstrates extensive erythema and skin thickening of both lower legs below the knee. No active ulcerations are observed. Thrombosed varicose veins can be palpated. No areas of erythema or warmth to suggest new cellulitis or thrombophlebitis. Review of the ultrasound performed the same day demonstrates occlusive thrombus extending throughout the treated right leg varicose veins. Bilateral residual varicose veins remain. The patient expressed a desire to proceed with treatment of incompetent varicose veins. VEIN/ Facility EST LMTD IMPRESSION: 1. Successful ablation of treated right leg incompetent varicose veins 2. Persistent bilateral incompetent varicose veins. PLAN: Micro foam chemical ablation left leg incompetent varicose veins Nurse notes, history and physical were reviewed and confirmed, see attached forms. The nurse was present throughout the physical exam and consultation Dictated by: Michele Mccall MD on 07/29/2023 at 09:13 Approved by: Michele Mcacll MD on 07/29/2023 at 09:18
== END 2023-07-29 08:38 | disposition home or self-care (01) ==
LOC: VC 08:37
PROVIDERS: PCP Radiology Diagnostic Radiology; Visit Provider Radiology Diagnostic Radiology
DX: I80.01 Phlebitis and thrombophlebitis of superficial vessels of right lower extremity (principal)
CPT/HCPCS: 93971; G0463

== ENCOUNTER 2023-08-05 09:31 | Outpatient (OUT) | payer MEDICARE, OTHER, SELFPAY ==
--- NOTE | 2023-08-05 | VEIN_ITS ---
[address] [address] Patient Name: OXANA CASTRO MRN: [id number] date: 1955 Sex: F Assigned Patient Location: Current Patient Location: Accession/Order Number: [id number] Exam Date: 08/05/2023 09:35 Report Date: 08/05/2023 10:46 At the request of: COLTON HAMLIN Procedure: VC INJ Foam Sclerosant WUS WATERPROOFING SUPERVISOR PROCEDURE: VC INJ Foam Sclerosant WUS WATERPROOFING SUPERVISOR HISTORY: Pain due to varicose veins of bilateral legs I83.813 Pre-operative Diagnosis: CEAP class C5 venous insufficiency with pain, tenderness, edema and incompetent branch saphenous vein(s), chronic venous insufficiency left leg secondary to venous incompetence Post-operative Diagnosis: CEAP class C5 venous insufficiency with pain, tenderness, edema and incompetent branch saphenous vein(s), chronic venous insufficiency left leg secondary to venous incompetence Procedure Performed: 1. Ultrasound-guided microfoam chemical ablation with Varithenaregistered 2. Intraoperative ultrasound guidance Physician: Alan Hernández M.D. Anesthesia: None Indications for Procedure: 68 year old female. Symptoms including lower extremity skin changes, pain, swelling, dilated bulging veins for many years despite conservative medical therapy including medical compression stockings, exercise and analgesics. Prior procedures include endovenous laser ablation and microfoam chemical ablation. Multiple incompetent varicosities of the left leg. Duplex scan showed reflux and enlarged diameters up to 7 mm. The patient underwent informed consent including management options where the complications of infection, bleeding, pain, and skin injury were discussed. Particular attention was spent discussing thrombus extension and deep vein thrombosis as well as the possibility of pulmonary embolus and treatment with oral or injectable blood thinners. Procedure: The patient walked to the procedure room. All applicable staff donned appropriate apparel. A procedure timeout was performed to confirm correct patient, correct extremity, correct procedure, and correct room set-up including presence of all applicable supplies, devices, and drugs. A duplex ultrasound, performed by myself confirmed the location and incompetence of branch saphenous varicosities and their course was marked on the skin together with the dilated tributaries. The extent of treatment of the vein and the associated varicosities was determined through ultrasound mapping. The skin was prepped and then punctured with a butterfly needle and advanced under ultrasound guidance. The Varithenaregistered canister was activated and the canister was primed and purged as required in the instructions for use. Varithenaregistered was drawn into a sterile syringe. Varithenaregistered was slowly administered at 0.5-1.0 cc/second with close observation by ultrasound of its course in the vessels. Total volume utilized was: 15 mL (7 mL into a 5 mm varicosity of the distal anterior lower leg; 8 mL intravenous 7 mm varicosity medial to the knee). Following administration of Varithenaregistered the leg was elevated and the patient was asked to repeatedly dorsiflex the ankle to limit flow of Varithenaregistered into perforating veins. Once appropriate spasm had been confirmed in the treated veins, the vascular catheter was removed from the leg and light pressure was applied over the puncture site for hemostasis. The common femoral and deep superficial veins were then evaluated for flow and compressibility prior to dressing placement. The lower extremity was kept elevated at 45 degrees above the horizontal and cording material was applied over the saphenous segments and tributaries to allow for eccentric compression over the target vessels including the targeted saphenous vein(s). A multilayer dressing was applied consisting of foam pads, coban and thigh-high 20-30 mm Hg compression elastic support hose were placed on the patient. The leg was lowered only after compression had been applied and the patient was immediately ambulatory. The patient ambulated 10 minutes under supervision and was without apparent concerns at time of release. Post-care instructions include advising patient to keep post-treatment bandages in place and dry for 48 hours, avoid extended periods of inactivity, avoid heavy exercise for one week, wear compression stockings on the treated leg continuously for two weeks, to walk daily for 10 minutes over the next month. The patient was instructed to take an anti-inflammatory medicine as needed and to follow up for color duplex scan of the Saphenous veins, the treated branch saphenous varicosities, the adjacent deep veins, and additional treatment within 7 days. PERSONNEL: Julien Panda RN Electronically authenticated by: ALAN HERNÁNDEZ Date: 08/05/2023 10:46
== END 2023-08-05 09:32 | disposition home or self-care (01) ==
LOC: VC 09:31
PROVIDERS: PCP Radiology Diagnostic Radiology; Visit Provider Radiology Diagnostic Radiology
DX: I83.813 Varicose veins of bilateral lower extremities with pain (principal)
CPT/HCPCS: 36466

== ENCOUNTER 2023-08-12 09:37 | Outpatient (OUT) | payer MEDICARE, OTHER, SELFPAY ==
--- NOTE | 2023-08-12 | VEIN_ITS ---
Patient: OXANA CASTRO Exam Date: 08/12/2023 : 1955 Gender:F Ordering : DR MICHELE MCCALL M.D. Admission #: [id number] Family : Order #: [id number] CLICK HERE TO VIEW EXAM RADIOLOGY REPORT PROCEDURE: FACILITY EST LMTD VEIN CENTER - OFFICE VISIT FOLLOW UP COMPARISON: [facility] EST LMTD, 07/29/2023. FACILITY EST LMTD, 07/16/2023. PROGRESS NOTES: The patient reports no significant problems following micro foam chemical ablation of left leg incompetent varicose veins. The patient has worn some compression wraps. The patient did not require oral analgesics. The patient has followed our recommendations to walk 20-30 minutes once or twice per day since the procedure to the best of her ability within her physical limitation. Physical exam demonstrates scattered thrombosed varicose veins. No areas of erythema or warmth to suggest cellulitis or thrombophlebitis. Subcutaneous edema skin thickening and hemosiderin staining is again observed, significantly improved from her initial presenting exam. Review of the ultrasound performed the same day demonstrates occlusive thrombus extending throughout the treated left leg varicose veins with no deep vein thrombus. Residual patent incompetent varicose veins measuring up to 6.5 mm preserved. The patient expressed a desire to proceed with treatment of incompetent patent varicose veins with micro foam chemical ablation. VEIN/ Facility EST LMTD IMPRESSION: 1. Successful ablation of the treated left leg incompetent varicose veins 2. Persistent bilateral patent incompetent varicose veins. PLAN: Micro foam chemical ablation right leg incompetent varicose veins Nurse notes, history and physical were reviewed and confirmed, see attached forms. The nurse was present throughout the physical exam and consultation Dictated by: Michele Mccall MD on 08/12/2023 at 10:40 Approved by: Michele Mccall MD on 08/12/2023 at 10:42
--- NOTE | 2023-08-12 | VEIN_ITS ---
Patient: OXANA CSATRO Exam Date: 08/12/2023 : 1955 Gender:F Ordering : DR MICHELE MCCALL M.D. Admission #: [id number] Family : Order #: [id number] CLICK HERE TO VIEW EXAM RADIOLOGY REPORT PROCEDURE: VC EXT VENOUS LT LIMITED COMPARISON: VC EXT VENOUS LT LIMITED, 07/16/2023. VC EXT VENOUS LT LIMITED, 05/27/2023. INDICATIONS: Phlebitis of superficial veins of lt lower extremity I80.02 TECHNIQUE: Lower extremity samson scale and Duplex Doppler evaluation of the deep venous system from the inguinal ligament through the calf veins. FINDINGS: REGION: Left lower extremity. THROMBI: Negative for DVT. Non-visualization of the peroneal veins due to swelling COMPRESSIBILITY: Non-compressible segments corresponding to thrombus FLOW: Areas of no flow corresponding to thrombus OTHER: Patent varicose vein visualized on mid medial lower leg measures 6.5 mm with 1.0 s of reflux. Patent varicose vein visualized on anterior knee measures 4.6 mm with 1.3 s of reflux. CONCLUSION: Post ablation occlusion of treated varicose veins with residual patent incompetent varicose veins measuring up to 6 5 mm. Dictated by: Michele Mccall MD on 08/12/2023 at 10:31 Approved by: Michele Mccall MD on 08/12/2023 at 10:32
== END 2023-08-12 09:38 | disposition home or self-care (01) ==
LOC: VC 09:38
PROVIDERS: PCP Radiology Diagnostic Radiology; Visit Provider Radiology Diagnostic Radiology
DX: I80.02 Phlebitis and thrombophlebitis of superficial vessels of left lower extremity (principal)
CPT/HCPCS: 93971; G0463

== ENCOUNTER 2023-08-20 12:48 | Outpatient (OUT) | payer MEDICARE, OTHER, SELFPAY ==
--- NOTE | 2023-08-20 | VEIN_ITS ---
The [address] [address] Patient Name: OXANA CASTRO MRN: [id number] date: 1955 Sex: F Assigned Patient Location: Current Patient Location: Accession/Order Number: [id number] Exam Date: 08/20/2023 12:55 Report Date: 08/20/2023 14:31 At the request of: COLTON HAMLIN Procedure: VC INJ Foam Sclerosant WUS CHIP TESTER PROCEDURE: VC INJ Foam Sclerosant WUS CHIP TESTER HISTORY: Pain due to varicose veins of bilateral legs I83.813 Pre-operative Diagnosis: CEAP class C5 venous insufficiency with pain, tenderness, edema and incompetent branch saphenous vein(s), chronic venous insufficiency right leg secondary to venous incompetence Post-operative Diagnosis: CEAP class C5 venous insufficiency with pain, tenderness, edema and incompetent branch saphenous vein(s), chronic venous insufficiency right leg secondary to venous incompetence Procedure Performed: 1. Ultrasound-guided microfoam chemical ablation with Varithenaregistered 2. Intraoperative ultrasound guidance Physician: Alan Hernández M.D. Anesthesia: None Indications for Procedure: 68 year old female. Symptoms including bilateral lower extremity swelling, skin changes, dilated bulging veins, leg pain for many years despite conservative medical therapy including medical compression stockings, exercise and analgesics. Prior procedures include [endovenous laser ablation and microfoam chemical ablation. Multiple incompetent varicosities of the right leg. Duplex scan showed reflux and enlarged diameters up to 5 mm. The patient underwent informed consent including management options where the complications of infection, bleeding, pain, and skin injury were discussed. Particular attention was spent discussing thrombus extension and deep vein thrombosis as well as the possibility of pulmonary embolus and treatment with oral or injectable blood thinners. Procedure: The patient walked to the procedure room. All applicable staff donned appropriate apparel. A procedure timeout was performed to confirm correct patient, correct extremity, correct procedure, and correct room set-up including presence of all applicable supplies, devices, and drugs. A duplex ultrasound, performed by myself confirmed the location and incompetence of branch saphenous varicosities and their course was marked on the skin together with the dilated tributaries. The extent of treatment of the vein and the associated varicosities was determined through ultrasound mapping. The skin was prepped and then punctured with a butterfly needle and advanced under ultrasound guidance. The Varithenaregistered canister was activated and the canister was primed and purged as required in the instructions for use. Varithenaregistered was drawn into a sterile syringe. Varithenaregistered was slowly administered at 0.5-1.0 cc/second with close observation by ultrasound of its course in the vessels. Total volume utilized was: 15 mL (4 mL into a 4 mm varicosity of the distal anterior lower leg; 6 mL into a 5 mm varicosity of the mid anterior lower leg; 5 mL and 25 mm varicosity of the distal medial lower leg). Following administration of Varithenaregistered the leg was elevated and the patient was asked to repeatedly dorsiflex the ankle to limit flow of Varithenaregistered into perforating veins. Once appropriate spasm had been confirmed in the treated veins, the vascular catheter was removed from the leg and light pressure was applied over the puncture site for hemostasis. The common femoral and deep superficial veins were then evaluated for flow and compressibility prior to dressing placement. The lower extremity was kept elevated at 45 degrees above the horizontal and cording material was applied over the saphenous segments and tributaries to allow for eccentric compression over the target vessels including the targeted saphenous vein(s). A multilayer dressing was applied consisting of foam pads, coban and thigh-high 20-30 mm Hg compression elastic support hose were placed on the patient. The leg was lowered only after compression had been applied and the patient was immediately ambulatory. The patient ambulated 10 minutes under supervision and was without apparent concerns at time of release. Post-care instructions include advising patient to keep post-treatment bandages in place and dry for 48 hours, avoid extended periods of inactivity, avoid heavy exercise for one week, wear compression stockings on the treated leg continuously for two weeks, to walk daily for 10 minutes over the next month. The patient was instructed to take an anti-inflammatory medicine as needed and to follow up for color duplex scan of the Saphenous veins, the treated branch saphenous varicosities, the adjacent deep veins, and additional treatment within 7 days. PERSONNEL: Julien Panda RN Electronically authenticated by: ALAN HERNÁNDEZ Date: 08/20/2023 14:31
== END 2023-08-20 12:49 | disposition home or self-care (01) ==
LOC: VC 12:50
PROVIDERS: PCP Radiology Diagnostic Radiology; Visit Provider Radiology Diagnostic Radiology
DX: I83.813 Varicose veins of bilateral lower extremities with pain (principal)
CPT/HCPCS: 36466

== ENCOUNTER 2023-08-26 09:30 | Outpatient (OUT) | payer MEDICARE, OTHER, SELFPAY ==
--- NOTE | 2023-08-26 09:31 | VEIN_ITS ---
Patient Name: OXANA CASTRO MR#: [id number] : 1955 Exam Date: 08/26/2023 Ordering Doctor: DR MICHELE MCCALL M.D. RADIOLOGY REPORT PROCEDURE: VC EXT VENOUS RT LMTD COMPARISON: VC EXT VENOUS RT LMTD, 07/29/2023. VC EXT VENOUS RT LMTD, 06/18/2023. INDICATIONS: I80.01 Phlebitis of superficial veins of rt lower extremity TECHNIQUE: Lower extremity samson scale and Duplex Doppler evaluation of the deep venous system from the inguinal ligament through the calf veins. FINDINGS: REGION: Right lower extremity. THROMBI: Negative for DVT. Varithena induced thrombus visualized at dist/med calf, mid/med calf, and distal/anterior calf. COMPRESSIBILITY: Non-compressible segments corresponding to thrombus FLOW: Areas of absent flow. OTHER: No patent varicose veins remain. CONCLUSION: Post ablation occlusion of treated right leg incompetent varicose veins. Dictated by: Michele Mccall MD on 08/26/2023 at 09:51 Approved by: Michele Mccall MD on 08/26/2023 at 09:51
--- NOTE | 2023-08-26 09:32 | VEIN_ITS ---
Patient Name: OXANA CASTRO MR#: [id number] : 1955 Exam Date: 08/26/2023 Ordering Doctor: DR MICHELE MCCALL M.D. RADIOLOGY REPORT PROCEDURE: [facility] EST LMTD VEIN CENTER - OFFICE VISIT FOLLOW UP COMPARISON: [facility] EST LMTD, 08/12/2023. [facility] EST LMTD, 07/29/2023. PROGRESS NOTES: The patient reports no significant problems following micro foam chemical ablation of right leg incompetent varicose veins. The patient has worn her compression wraps. Patient continues to have pain and swelling. Physical exam demonstrates reduction in overall erythema and swelling however there is remains moderate to severe swelling below the right knee. No areas of erythema or warmth to suggest cellulitis or thrombophlebitis. Weeping of the skin related to her edema is observed however no definite active ulceration Review of the ultrasound performed the same day demonstrates occlusive thrombus extending throughout the treated right leg varicose veins. No residual incompetent varicose veins are observed. The patient expressed a desire to proceed with treatment of incompetent left leg varicose veins. VEIN/[facility] EST LMTD IMPRESSION: 1. Successful ablation of right leg incompetent varicose veins 2. Persistent incompetent left leg varicose veins. PLAN: Micro foam chemical ablation left leg varicose veins Nurse notes, history and physical were reviewed and confirmed, see attached forms. The nurse was present throughout the physical exam and consultation Dictated by: Michele Mccall MD on 08/26/2023 at 09:59 Approved by: Michele Mccall MD on 08/26/2023 at 10:00
== END 2023-08-26 09:31 | disposition home or self-care (01) ==
LOC: VC 09:30
PROVIDERS: PCP Radiology Diagnostic Radiology; Visit Provider Radiology Diagnostic Radiology
DX: I80.01 Phlebitis and thrombophlebitis of superficial vessels of right lower extremity (principal)
CPT/HCPCS: 93971; G0463

== ENCOUNTER 2023-09-01 13:22 | Outpatient (OUT) | payer MEDICARE, OTHER, SELFPAY ==
--- NOTE | 2023-09-01 13:23 | VEIN_ITS ---
The [address] [address] Patient Name: OXNAA CASTRO MRN: [id number] date: 1955 Sex: F Assigned Patient Location: Current Patient Location: Accession/Order Number: [id number] Exam Date: 09/01/2023 13:30 Report Date: 09/01/2023 14:25 At the request of: COLTON HAMLIN Procedure: VC INJ Foam Sclerosant WUS TSO PROCEDURE: VC INJ Foam Sclerosant WUS TSO HISTORY: Pain due to varicose veins of bilateral legs I83.813 Pre-operative Diagnosis: CEAP class C5 venous insufficiency with pain, tenderness, edema and incompetent branch saphenous vein(s), chronic venous insufficiency left leg secondary to venous incompetence Post-operative Diagnosis: CEAP class C5 venous insufficiency with pain, tenderness, edema and incompetent branch saphenous vein(s), chronic venous insufficiency left leg secondary to venous incompetence Procedure Performed: 1. Ultrasound-guided microfoam chemical ablation with Varithenaregistered 2. Intraoperative ultrasound guidance Physician: Alan Hernández M.D. Anesthesia: None Indications for Procedure: 68 year old female. Symptoms including significant lower extremity swelling and dilated bulging veins, lower extremity heaviness, pain for many years despite conservative medical therapy including medical compression stockings, exercise and analgesics. Prior procedures include endovenous laser ablation and microfoam chemical ablation. Multiple incompetent varicosities of the left leg. Duplex scan showed reflux and enlarged diameters up to 10 mm. The patient underwent informed consent including management options where the complications of infection, bleeding, pain, and skin injury were discussed. Particular attention was spent discussing thrombus extension and deep vein thrombosis as well as the possibility of pulmonary embolus and treatment with oral or injectable blood thinners. Procedure: The patient walked to the procedure room. All applicable staff donned appropriate apparel. A procedure timeout was performed to confirm correct patient, correct extremity, correct procedure, and correct room set-up including presence of all applicable supplies, devices, and drugs. A duplex ultrasound, performed by myself confirmed the location and incompetence of branch saphenous varicosities and their course was marked on the skin together with the dilated tributaries. The extent of treatment of the vein and the associated varicosities was determined through ultrasound mapping. The skin was prepped and then punctured with a butterfly needle and advanced under ultrasound guidance. The Varithenaregistered canister was activated and the canister was primed and purged as required in the instructions for use. Varithenaregistered was drawn into a sterile syringe. Varithenaregistered was slowly administered at 0.5-1.0 cc/second with close observation by ultrasound of its course in the vessels. Total volume utilized was: 15 mL into a 10 mm varicosity extending from mid medial lower leg to medial mid thigh. Following administration of Varithenaregistered the leg was elevated and the patient was asked to repeatedly dorsiflex the ankle to limit flow of Varithenaregistered into perforating veins. Once appropriate spasm had been confirmed in the treated veins, the vascular catheter was removed from the leg and light pressure was applied over the puncture site for hemostasis. The common femoral and deep superficial veins were then evaluated for flow and compressibility prior to dressing placement. The lower extremity was kept elevated at 45 degrees above the horizontal and cording material was applied over the saphenous segments and tributaries to allow for eccentric compression over the target vessels including the targeted saphenous vein(s). A multilayer dressing was applied consisting of foam pads, coban and thigh-high 20-30 mm Hg compression elastic support hose were placed on the patient. The leg was lowered only after compression had been applied and the patient was immediately ambulatory. The patient ambulated 10 minutes under supervision and was without apparent concerns at time of release. Post-care instructions include advising patient to keep post-treatment bandages in place and dry for 48 hours, avoid extended periods of inactivity, avoid heavy exercise for one week, wear compression stockings on the treated leg continuously for two weeks, to walk daily for 10 minutes over the next month. The patient was instructed to take an anti-inflammatory medicine as needed and to follow up for color duplex scan of the Saphenous veins, the treated branch saphenous varicosities, the adjacent deep veins, and additional treatment within 7 days. PERSONNEL: Cooper Keith RDMS Electronically authenticated by: ALAN HERNÁNDEZ Date: 09/01/2023 14:25
== END 2023-09-01 13:23 | disposition home or self-care (01) ==
LOC: VC 13:22
PROVIDERS: PCP Family Medicine; Visit Provider Radiology Diagnostic Radiology
DX: I83.813 Varicose veins of bilateral lower extremities with pain (principal)
CPT/HCPCS: 36466

== ENCOUNTER 2023-09-07 07:53 | Outpatient (OUT) | payer MEDICARE, OTHER, SELFPAY ==
--- NOTE | 2023-09-07 07:55 | VEIN_ITS ---
Patient Name: OXANA CASTRO MR#: [id number] : 1955 Exam Date: 09/07/2023 Ordering Doctor: DR COLTON HAMLIN M.D. RADIOLOGY REPORT PROCEDURE: [facility] EST LMTD VEIN CENTER - OFFICE VISIT FOLLOW UP COMPARISON: [facility], 08/26/2023. PROGRESS NOTES: The patient reports improvement in leg symptoms. There has been interval reduction in varicosities. The patient has followed our recommendations to walk 20-30 minutes once or twice per day since the procedure. Physical exam demonstrates decrease in varicosities of the leg. Persistent bilateral lower extremity swelling and a few varicosities are identified along the left. Review of the ultrasound performed the same day demonstrates occlusive thrombus extending throughout the treated vein(s), see separate report, consistent with a successful ablation. No thrombus extending into or beyond the saphenofemoral junction. A few remaining dilated and incompetent branch saphenous varicosities within the left leg. The patient expressed a desire to proceed with treatment of remaining incompetent varicosities of left leg. The patient was informed that treatment was a process and would require 1 procedures/sessions. VEIN/[facility] EST LMTD IMPRESSION: 1. Successful ablation of the treated left leg branch saphenous vein(s). 2. Persistent left leg varicose veins and bilateral lower extremity swelling. PLAN: 1. Microfoam chemical ablation of left leg branch saphenous varicosities. 2. Patient has an appointment already scheduled with the lymphedema clinic. Nurse notes, history and physical were reviewed and confirmed, see attached forms. The nurse was present throughout the physical exam and consultation Dictated by: Alan Hernández M.D. on 09/07/2023 at 09:31 Approved by: Alan Hernández M.D. on 09/07/2023 at 09:34
--- NOTE | 2023-09-07 07:55 | VEIN_ITS ---
Patient Name: OXANA CASTRO MR#: [id number] : 1955 Exam Date: 09/07/2023 Ordering Doctor: DR COLTON HAMLIN M.D. RADIOLOGY REPORT PROCEDURE: VC EXT VENOUS LT LIMITED COMPARISON: VC EXT VENOUS LT LIMITED, 08/12/2023. INDICATIONS: I80.02 Phlebitis of superficial veins of lt lower extremity TECHNIQUE: Lower extremity samson scale and Duplex Doppler evaluation of the deep venous system from the inguinal ligament through the calf veins. FINDINGS: REGION: Left lower extremity. THROMBI: Negative for DVT. Varithena induced thrombus visualized at mid/med calf and prox/med thigh. COMPRESSIBILITY: Non-compressible segments corresponding to thrombus FLOW: Areas of no flow corresponding to thrombus OTHER: Patent varicose vein mid/med calf 6.8mm with 1.1s reflux. Patent varicose vein prox/med thigh 3.3mm with 1.6s reflux. CONCLUSION: 1. Successful post ablation occlusion of treated left leg branch saphenous varicosities. Dictated by: Alan Hernández M.D. on 09/07/2023 at 09:29 Approved by: Alan Hernández M.D. on 09/07/2023 at 09:31
== END 2023-09-07 07:54 | disposition home or self-care (01) ==
LOC: VC 07:53
PROVIDERS: PCP Radiology Diagnostic Radiology; Visit Provider Radiology Diagnostic Radiology
DX: I80.02 Phlebitis and thrombophlebitis of superficial vessels of left lower extremity (principal)
CPT/HCPCS: 93971; G0463

== ENCOUNTER 2023-09-09 08:00 | Outpatient (RCR) | payer MEDICARE, OTHER, SELFPAY | END 2023-10-11 08:07 | disposition home or self-care (01) | LOC: OT 08:00 | PROVIDERS: PCP Radiology Diagnostic Radiology; Visit Provider Radiology Diagnostic Radiology | DX: R60.0 Localized edema (principal); I89.0 Lymphedema, not elsewhere classified | CPT/HCPCS: 97140; 97166; 97530 ==

== ENCOUNTER 2023-09-15 12:10 | Outpatient (OUT) | payer MEDICARE, OTHER, SELFPAY ==
--- NOTE | 2023-09-15 12:30 | VEIN_ITS ---
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 I83.813 Pre-operative Diagnosis: CEAP class C5 venous insufficiency with pain, tenderness, edema and incompetent branch saphenous vein(s), chronic venous insufficiency left leg secondary to venous incompetence Post-operative Diagnosis: CEAP class C5 venous insufficiency with pain, tenderness, edema and incompetent branch saphenous vein(s), chronic venous insufficiency left leg secondary to venous incompetence Procedure Performed: 1. Ultrasound-guided microfoam chemical ablation with Varithenaregistered 2. Intraoperative ultrasound guidance Physician: Alan Hernández M.D. Anesthesia: None Indications for Procedure: 68 year old female. Symptoms including lower extremity pain, swelling, dilated veins, skin changes, wounds for many years despite conservative medical therapy including medical compression stockings, exercise and analgesics. Prior procedures include endovenous laser ablation and microfoam chemical ablation. Multiple incompetent varicosities of the left leg. Duplex scan showed reflux and enlarged diameters up to 5 mm. The patient underwent informed consent including management options where the complications of infection, bleeding, pain, and skin injury were discussed. Particular attention was spent discussing thrombus extension and deep vein thrombosis as well as the possibility of pulmonary embolus and treatment with oral or injectable blood thinners. Procedure: The patient walked to the procedure room. All applicable staff donned appropriate apparel. A procedure timeout was performed to confirm correct patient, correct extremity, correct procedure, and correct room set-up including presence of all applicable supplies, devices, and drugs. A duplex ultrasound, performed by myself confirmed the location and incompetence of branch saphenous varicosities and their course was marked on the skin together with the dilated tributaries. The extent of treatment of the vein and the associated varicosities was determined through ultrasound mapping. The skin was prepped and then punctured with a butterfly needle and advanced under ultrasound guidance. The Varithenaregistered canister was activated and the canister was primed and purged as required in the instructions for use. Varithenaregistered was drawn into a sterile syringe. Varithenaregistered was slowly administered at 0.5-1.0 cc/second with close observation by ultrasound of its course in the vessels. Total volume utilized was: 15 mL (8 mL into a 5 mm varicosity of the mid medial lower leg; 7 mL into a 4 mm varicosity distal anterior lower leg. Following administration of Varithenaregistered the leg was elevated and the patient was asked to repeatedly dorsiflex the ankle to limit flow of Varithenaregistered into perforating veins. Once appropriate spasm had been confirmed in the treated veins, the vascular catheter was removed from the leg and light pressure was applied over the puncture site for hemostasis. The common femoral and deep superficial veins were then evaluated for flow and compressibility prior to dressing placement. The lower extremity was kept elevated at 45 degrees above the horizontal and cording material was applied over the saphenous segments and tributaries to allow for eccentric compression over the target vessels including the targeted saphenous vein(s). A multilayer dressing was applied consisting of foam pads, coban and thigh-high 20-30 mm Hg compression elastic support hose were placed on the patient. The leg was lowered only after compression had been applied and the patient was immediately ambulatory. The patient ambulated 10 minutes under supervision and was without apparent concerns at time of release. Post-care instructions include advising patient to keep post-treatment bandages in place and dry for 48 hours, avoid extended periods of inactivity, avoid heavy exercise for one week, wear compression stockings on the treated leg continuously for two weeks, to walk daily for 10 minutes over the next month. The patient was instructed to take an anti-inflammatory medicine as needed and to follow up for color duplex scan of the Saphenous veins, the treated branch saphenous varicosities, the adjacent deep veins, and additional treatment within 7 days. PERSONNEL: Julien Panda RN Electronically authenticated by: ALAN HERNÁNDEZ Date: 09/15/2023 14:29
== END 2023-09-15 12:11 | disposition home or self-care (01) ==
LOC: VC 12:20
PROVIDERS: PCP Radiology Diagnostic Radiology; Visit Provider Radiology Diagnostic Radiology
DX: I83.813 Varicose veins of bilateral lower extremities with pain (principal)
CPT/HCPCS: 36466

== ENCOUNTER 2023-09-21 12:24 | Outpatient (OUT) | payer MEDICARE, OTHER, SELFPAY ==
--- NOTE | 2023-09-21 12:28 | VEIN_ITS ---
Patient Name: OXANA CASTRO MR#: [id number] : 1955 Exam Date: 09/21/2023 Ordering Doctor: DR MICHELE MCCALL M.D. RADIOLOGY REPORT PROCEDURE: VC EXT VENOUS LT LIMITED COMPARISON: VC EXT VENOUS LT LIMITED, 09/07/2023. VC EXT VENOUS LT LIMITED, 08/12/2023. INDICATIONS: Phlebitis of superficial veins of lt lower extremity I80.02 TECHNIQUE: Lower extremity samson scale and Duplex Doppler evaluation of the deep venous system from the inguinal ligament through the calf veins. FINDINGS: REGION: Left lower extremity. THROMBI: Negative for DVT. Varithena induced thromvbus visualized at mid/med calf and dist/ant calf. COMPRESSIBILITY: Non-compressible segments corresponding to thrombus FLOW: Areas of absent flow corresponding to thrombus OTHER: Multiple varicose veins remain. Largest is at mid/med thigh and measures 4.3mm with 1.3s reflux. CONCLUSION: Post ablation occlusion of treated left leg varicose veins. Residual patent varicose veins remain up to 4.3 mm. Dictated by: Michele Mccall MD on 09/21/2023 at 12:46 Approved by: Michele Mccall MD on 09/21/2023 at 12:47
--- NOTE | 2023-09-21 12:29 | VEIN_ITS ---
Patient Name: OXANA CASTRO MR#: [id number] : 1955 Exam Date: 09/21/2023 Ordering Doctor: DR MICHELE MCCALL M.D. RADIOLOGY REPORT PROCEDURE: [facility] EST LMTD VEIN CENTER - OFFICE VISIT FOLLOW UP COMPARISON: [facility] EST LMTD, 09/07/2023. [facility] EST LMTD, 08/26/2023. PROGRESS NOTES: The patient reports marked improvement in her initial presenting symptoms. The patient has no problems following intravenous laser ablation of left leg incompetent varicose veins. The patient did not require oral analgesics. The patient has worn her compression stockings. The patient has tried to exercise to the best of her ability. Physical exam demonstrates significant reduction in swelling, erythema and skin thickening of both legs. Persistent venous stasis ulcerations present, which are improving. No erythema or warmth to suggest cellulitis or thrombophlebitis. Residual varicose veins can be observed. Review of the ultrasound performed the same day demonstrates occlusive thrombus extending throughout the treated left leg veins. No deep vein thrombus. Residual bilateral incompetent varicose veins. The patient expressed a desire to proceed with treatment of incompetent varicose veins. VEIN/[facility] EST LMTD IMPRESSION: 1. Successful ablation of left leg treated incompetent varicose veins 2. Persistent bilateral incompetent varicose veins. PLAN: Micro foam chemical ablation of right leg incompetent varicose veins Nurse notes, history and physical were reviewed and confirmed, see attached forms. The nurse was present throughout the physical exam and consultation Dictated by: Michele Mccall MD on 09/21/2023 at 13:26 Approved by: Michele Mccall MD on 09/21/2023 at 13:29
== END 2023-09-21 12:25 | disposition home or self-care (01) ==
LOC: VC 12:25
PROVIDERS: PCP Radiology Diagnostic Radiology; Visit Provider Radiology Diagnostic Radiology
DX: I80.02 Phlebitis and thrombophlebitis of superficial vessels of left lower extremity (principal)
CPT/HCPCS: 93971; G0463

== ENCOUNTER 2023-10-02 12:49 | Outpatient (OUT) | payer MEDICARE, OTHER, SELFPAY ==
--- NOTE | 2023-10-02 12:53 | VEIN_ITS ---
The [address] [address] Patient Name: OXANA CASTRO MRN: [id number] date: 1955 Sex: F Assigned Patient Location: Current Patient Location: Accession/Order Number: [id number] Exam Date: 10/02/2023 12:55 Report Date: 10/02/2023 13:59 At the request of: COLTON HAMLIN Procedure: VC INJ Foam Sclerosant [facility] PROCEDURE: VC INJ Foam Sclerosant [facility] HISTORY: Pain due to varicose veins of bilateral legs I83.813 Pre-operative Diagnosis: CEAP class C5 venous insufficiency with pain, tenderness, edema and incompetent branch saphenous vein(s), chronic venous insufficiency right leg secondary to venous incompetence Post-operative Diagnosis: CEAP class C5 venous insufficiency with pain, tenderness, edema and incompetent branch saphenous vein(s), chronic venous insufficiency right leg secondary to venous incompetence Procedure Performed: 1. Ultrasound-guided microfoam chemical ablation with Varithenaregistered 2. Intraoperative ultrasound guidance Physician: Alan Hernández M.D. Anesthesia: None Indications for Procedure: 68 year old female. Symptoms including lower extremity pain, marked swelling, marked skin changes, and dilated bulging veins for many years despite conservative medical therapy including medical compression stockings, exercise and analgesics. Prior procedures include endovenous laser ablation and microfoam chemical ablation. Multiple incompetent varicosities of the right leg. Duplex scan showed reflux and enlarged diameters up to 5.4 mm. The patient underwent informed consent including management options where the complications of infection, bleeding, pain, and skin injury were discussed. Particular attention was spent discussing thrombus extension and deep vein thrombosis as well as the possibility of pulmonary embolus and treatment with oral or injectable blood thinners. Procedure: The patient walked to the procedure room. All applicable staff donned appropriate apparel. A procedure timeout was performed to confirm correct patient, correct extremity, correct procedure, and correct room set-up including presence of all applicable supplies, devices, and drugs. A duplex ultrasound, performed by myself confirmed the location and incompetence of branch saphenous varicosities and their course was marked on the skin together with the dilated tributaries. The extent of treatment of the vein and the associated varicosities was determined through ultrasound mapping. The skin was prepped and then punctured with a butterfly needle and advanced under ultrasound guidance. The Varithenaregistered canister was activated and the canister was primed and purged as required in the instructions for use. Varithenaregistered was drawn into a sterile syringe. Varithenaregistered was slowly administered at 0.5-1.0 cc/second with close observation by ultrasound of its course in the vessels. Total volume utilized was: 12 mL (5 mL into a 4.2 mm varicosity of proximal anterior lower leg; 7 mL into a 5.4 mm varicosity mid medial lower leg). Following administration of Varithenaregistered the leg was elevated and the patient was asked to repeatedly dorsiflex the ankle to limit flow of Varithenaregistered into perforating veins. Once appropriate spasm had been confirmed in the treated veins, the vascular catheter was removed from the leg and light pressure was applied over the puncture site for hemostasis. The common femoral and deep superficial veins were then evaluated for flow and compressibility prior to dressing placement. The lower extremity was kept elevated at 45 degrees above the horizontal and cording material was applied over the saphenous segments and tributaries to allow for eccentric compression over the target vessels including the targeted saphenous vein(s). A multilayer dressing was applied consisting of foam pads, coban and thigh-high 20-30 mm Hg compression elastic support hose were placed on the patient. The leg was lowered only after compression had been applied and the patient was immediately ambulatory. The patient ambulated 10 minutes under supervision and was without apparent concerns at time of release. Post-care instructions include advising patient to keep post-treatment bandages in place and dry for 48 hours, avoid extended periods of inactivity, avoid heavy exercise for one week, wear compression stockings on the treated leg continuously for two weeks, to walk daily for 10 minutes over the next month. The patient was instructed to take an anti-inflammatory medicine as needed and to follow up for color duplex scan of the Saphenous veins, the treated branch saphenous varicosities, the adjacent deep veins, and additional treatment within 7 days. PERSONNEL: RODERICK Lindquist RDMS, RVT Electronically authenticated by: ALAN HERNÁNDEZ Date: 10/02/2023 13:59
--- OUTSIDE RECORDS SUMMARY | 2023-10-02 12:59 | XMS_ITS | CCD ---
Author Name Unknown Address [address] [facility] [address] [place] [address] Organization [facility] Care Team Providers Care Enterprise Application Administrator Name Role Phone Rosanne Dumont Unavailable Sherman Larson Unavailable DO Sherman Larson Primary Care Provider DO Sherman Larson Attending Provider [phone] DO Dawn Sow Referring Provider Self, Referral Attending Provider Unavailable Sherman Larson DO Primary Care Provider [phone] Sherman Larson DO Primary Care Provider [phone] Heidi Sanchez Unavailable SHERMAN LARSON Primary Care Unavailable OSCAR, KHALED Referring Unavailable OSCAR, KHALED Attending Unavailable SHERMAN LARSON Primary Care Unavailable OSCAR, KHALED Attending Unavailable SHERMAN LARSON Primary Care Unavailable ЮЛИЯ ODOM Referring Unavailabl e SHERMAN LARSON Primary Care Unavailable ЮЛИЯ ODOM Attending Unavailabl e ЮЛИЯ ODOM Referring Unavailabl e SHERMAN LARSON Primary Care Unavailable OSCAR, KHALED Referring Unavailable SHERMAN LARSON Primary Care Unavailable MAVIS ACUNA Attending Unavailable DO Sherman Larson Primary Care Provider [phone] DO Sherman Larson Attending Provider WALTER Poole Attending Provider WALTER Dumont Other Provider WALTER Poole Attending Provider [phone] Salvador, DO Whitaker Primary Care Provider [phone] Stephans, DO Sherman Attending Provider [phone] Self, Referral Attending Provider Unavailable Stephans, Sherman Primary Care Provider [phone] WALTER Poole Attending Provider Self, Referral Attending Provider Unavailable Salvador, DO Whitaker Attending Provider Eli, DOCUMENT PREPARATION SPECIALIST-C Judith A Attending Provider Eli, Judith A Admitting Unavailable Eli, Judith A Attending Unavailable Kuns, Sherman Primary Care Unavailable Copmoses, Hien Admitting Unavailable Copmoses, Hien Attending Unavailable Kuns, Sherman Primary Care Unavailable Rosanne Dumont Consulting Unavailable Kuns, Sherman Primary Care Unavailable Kuns, Sherman Attending Unavailable Kuns, Sherman Admitting Unavailable Kuns, Sherman Primary Care Unavailable Copmoses, Hien Admitting Unavailable CopHien lopes Attending Unavailable Self, Referral Admitting Unavailable Self, Referral Attending Unavailable Kuns, Sherman Primary Care Unavailable Kuns, Sherman Admitting Unavailable Kuns, Sherman Primary Care Unavailable Kuns, Sherman Attending Unavailable Medications Current Medications Medication Drug Class(es) Dates Sig (Normalized) Sig (Original) acetaminophen 500 mg oral tablet (14 sources) Start: 11-17-2018 End: 10-29-2020 take 500 mg by mouth every six hours Acetaminophen Active 500 MG PO Q6H 0 October 29, 2020 12:37pm amoxicillin 500 mg / clavulanate 125 mg oral tablet (9 sources) Penicillin-class Antibacterial Start: 02-19-2023 End: 02-25-2023 take 1 tablet by mouth every twelve hours amoxicillin-clavul anic acid (AUGMENTIN) 500-125 mg per tablet Take 1 tablet by mouth every 12 hours for 5 days. 10 tablet 0 02/19/2023 02/25/2023 Active Start: 12-09-2018 End: 12-23-2018 take 1 tablet by mouth twice daily Amoxicillin-Pot Clavulanate (Augmentin) 875-125 mg tablet Discontinued 1 TAB PO Twice daily 28 December 09, 2018 12:00am December 22, 2018 11:02pm Comment on above: Take 1 tablet by keon th every 12 hours for 5 days. aspirin 325 mg oral tablet (20 sources) Platelet Aggregation Inhibitor, Nonsteroidal Anti-inflammatory Drug Start: 03-25-2023 take 325 mg by mouth once daily Aspirin Active 325 MG PO Daily March 24, 2023 11:00pm Start: 12-07-2018 aspirin, enter ic coated (ASPIRIN, ENTERIC COATED) 81 mg EC tablet Aspirin (Aspirin Low Dose) 81 mg Tablet,Delayed Release (Dr/Ec) Active 2 TAB PO Daily December 07, 2018 11:02am 0 12/07/2018 Active Start: 12-07-2018 End: 03-25-2023 take 2 tablets by mouth once daily Aspirin (Arie Low Dose Aspirin) 81 mg Tablet,Delayed Release (Dr/Ec) Discontinued 2 TAB PO Daily December 07, 2018 12:00am March 25, 2023 1:33pm take 1 tablet by keon once daily Aspirin 325 mg 325 mg one tab orally daily Active Comment on above: Aspirin (Aspirin Low Dose) 81 mg Tablet,Delayed Release (Dr/Ec) Active 2 TAB PO Daily December 07, 2018 11:02am atorvastatin 10 mg oral tablet (20 sources) HMG-CoA Reductase Inhibitor Start: 06-05-2016 Atorvastatin (Lipitor) 10 mg Tablet Active 10 MG PO EVERY 3-4 DAYS January 05, 2018 11:00pm Start: 06-05-2016 take 1 tablet by keon two times weekly Lipitor 10 mg 1 tablet Orally Twice a week May, Active Start: 06-05-2016 Lipitor 10 mg 1 tablet every 2 days Orally Once a day May, Active Comment on above: Take 10 mg by mouth once daily. Every other day per MD cholecalciferol 0.125 mg oral tablet (7 sources) Vitamin D Start: 019 take 1 tablet by mouth once daily Cholecalciferol (Vitamin D3) (Vitamin D3) 5,000 unit Tablet Active 5000 UNIT PO Daily November 02, 2018 12:00am empagliflozin 25 mg oral tablet (20 sources) Sodium-Glucose Cotransporter 2 Inhibitor Start: 018 take 1 tablet by mouth once daily Empagliflozin (Jardiance) 25 mg Tablet Active 25 MG PO Daily January 05, 2018 11:00pm Comment on above: Take 25 mg by mouth once daily. fluconazole 150 mg oral tablet (7 sources) Azole Antifungal Start: 023 Fluconazole (Diflucan) 150 mg tablet Active 150 MG PO Q3D 2 June 21, 2023 11:00pm may repeat second dose 72 hrs after first dose if symptoms persist Start: 04-09-2023 End: 04-20-2023 take 1 tablet by mouth once daily Fluconazole (Diflucan) 150 mg tablet Discontinued 150 MG PO Daily April 08, 2023 11:00pm April 20, 2023 8:23am administer on day 1 of therapy FreeStyle Precision Joe Test - (18 sources) FreeStyle Precis ion Joe Test - use to double check BG with sensor In Vitro PRN for 90 days Active horse chestnut seed 300 mg oral capsule (5 sources) Start: 03-25-2023 take 300 mg by mouth once daily Horse Filley Active 300 MG PO Daily March 24, 2023 11:00pm insulin aspart, human 100 unt/ml injectable solution (20 sources) Insulin Analog Start: 03-25-2023 Insulin Aspart (Niacinamide) (Fiasp U-100 Insulin) 100 unit/mL Solution Active 0 .ROUTE .COMPLEX March 24, 2023 11:00pm per sliding scale Start: 11-25-2022 FIASP FLEXTOUC H U-100 INSULIN 100 unit/mL (3 mL) pen Fiasp FlexTouch 100 UNIT/ML 1:5 carb ratio ac tid. Corrective scale 1:20 ac tid; (hs if >200 half dose) Subcutaneous as directed for 90 days (expect up to 40 units/day) Active insulin glargine 100 unt/ml injectable solution (20 sources) Insulin Analog Start: 01-06-2018 inject 38 [IU] by subcutaneous injection once daily at bedtime Insulin Glargine (Lantus U-100 Insulin) 100 unit/mL Solution Active 38 UNIT SUBCUT Daily at bedtime January 06, 2018 12:00am Lantus SoloStar 100 UNIT/ML 40 units qhs SQ at bedtime Active inject 40 [IU] by nash bcutaneous injection once daily at bedtime insulin glargine (LANTUS) 100 unit/mL (3 mL) inpn Inject 40 Units subcutaneously daily at bedtime. 0 Active Lantus SoloStar 100 UNIT/ML 38 units qhs SQ at bedtime for 90 days (titrate up to 50 units/day) Active Lantus SoloStar 100 UNIT/ML 36 units qhs SQ at bedtime Active Lantus SoloStar 100 UNIT/ML 34 units qhs SQ QHS Active Comment on above: Inject 40 Units subc utaneously daily at bedtime. Insulin Glargine (Lantus U-100 Insulin) 100 unit/mL Solution (5 sources) Start: 8 inject 38 [IU] by subcutaneous injection once daily at bedtime Insulin Glargine (Lantus U-100 Insulin) 100 unit/mL Solution Active 38 UNIT SUBCUT Daily at bedtime January 05, 2018 11:00pm Start: 01-06-2018 inject 38 [IU] by nash bcutaneous injection once daily at bedtime Insulin Glargine (Lantus U-100 Insulin) 100 unit/mL Solution Active 38 UNIT SUBCUT Daily at bedtime January 06, 2018 12:00am 3 ml liraglutide 6 mg/ml pen injector (20 sources) GLP-1 Receptor Agonist Start: 01-06-2018 Liraglutide (Victoza 2-Enoc) 0.6 mg/0.1 mL (18 mg/3 mL) Pen Injector Active 1.2 MG SUBCUT Every morning January 05, 2018 11:00pm inject 1.8 mg by sub cutaneous injection once daily Victoza 18 MG/3ML 1.8mg Subcutaneous Onc e a day for 90 days Active Comment on above: Inject 1.8 mg subcut aneously once daily. metFORMIN hydrochloride 1000 mg oral tablet (20 sources) Biguanide Start: 8 take 1 tablet by mouth twice daily Metformin (Glucophage) 1,000 mg Tablet Active 1000 MG PO Twice daily January 05, 2018 11:00pm metFORMIN HCl ER 500 MG TAKE 2 TABLETS TWICE A DAY for 90 Active take 2 tablets by mouth twice da kanwal Glucophage XR 500 mg 2 tabs Orally bid Active Comment on above: Take 1,000 mg by keon th twice daily with meals. probiotic (2 sources) probiotic as dir ected Active Vitamin B Complex (18 sources) take 1 tablet by mouth once job y Vitamin B Complex - 1 tablet Orally Once Daily Active vitamin b12 1 mg oral tablet (20 sources) Vitamin B12 Start: 01-06-2018 take 1 tablet by mouth once daily Cyanocobalamin (Vitamin B-12) (Vitamin B-12) 1,000 mcg Tablet Active 1000 MCG PO Daily January 05, 2018 11:00pm take 1 tablet by mouth once job y Cyanocobalamin 1000 MCG 1 tablet Orally Once a day VIt b12 Not-Taking take 1 tablet by mouth once job y Cyanocobalamin 1000 MCG 1 tablet Orally Once a day VIt b12 Active Comment on above: Cyanocobalamin (Shani min B-12) (Vitamin B-12) 1,000 mcg Tablet Active 1000 MCG PO Daily January 06, 2018 9:27am Vitamin D 5000 (18 sources) Vitamin D 5000 1 cap(s) p.o. daily Active Completed/Discontinued Medications Medication Drug Class(es) Dates Sig (Normalized) Sig (Original) [id number] 200 actuat albuterol 0.09 mg/actuat metered dose inhaler (7 sources) beta2-Adrenergic Agonist Start: 10-29-2020 End: 07-17-2021 take 1 puff(s) by inhalation every three hours Albuterol Sulfate (Ventolin Hfa) 90 mcg/actuation Hfa Aerosol Inhaler Discontinued 2 PUFF INHALATION Q3H 6.7 October 29, 2020 12:00am July 17, 2021 7:37am ampicillin 500 mg oral capsule (7 sources) Penicillin-class Antibacterial Start: 05-31-2018 End: 06-14-2018 take 500 mg by mouth every six hours Ampicillin Discontinued 500 MG PO Q6H 56 May 30, 2018 11:00pm June 13, 2018 11:01pm azithromycin 250 mg oral tablet (10 sources) Macrolide Antimicrobial Start: 10-18-2021 Zithromax Z-Enoc 250 MG 2 tablet on the first day, then 1 tablet daily for 4 days Orally Once a day for 5 day(s) Mar, Not-Taking B-12 - up to 1000 mcg (15 sources) Start: 05-21-2016 Start: 05-21-2016 B-12 - up to 1 000 mcg May, 1 mL benzonatate 200 mg oral capsule (3 sources) Non-narcotic Antitussive Start: 03-24-2022 take 1 capsule by mouth every eight hours Benzonatate 200 MG 1 capsule Orally Three times a day for 30 day(s) Mar, Not-Taking cephalexin 500 mg oral capsule (11 sources) Cephalosporin Antibacterial Start: 04-09-2023 End: 04-20-2023 take 500 mg by mouth twice daily Cephalexin Discontinued 500 MG PO Twice daily 14 April 08, 2023 11:00pm April 20, 2023 8:23am start this on 04/10/23 or 04/11/23 Start: 02-02-2018 End: 02-09-2018 take 1 capsule by mouth twice daily Cephalexin (Keflex) 500 mg capsule Discontinued 500 MG PO Twice daily 14 February 01, 2018 11:00pm February 08, 2018 11:01pm dexamethasone 6 mg oral tablet (7 sources) Corticosteroid Start: 10-29-2020 End: 07-17-2021 take 6 mg by mouth once daily Dexamethasone Discontinued 6 MG PO Daily 3 October 29, 2020 12:00am July 17, 2021 7:38am doxycycline hyclate 100 mg oral capsule (20 sources) Tetracycline-class Drug Start: 03-25-2023 End: 04-20-2023 take 100 mg by mouth twice daily Doxycycline Hyclate Discontinued 100 MG PO Twice daily March 24, 2023 11:00pm April 20, 2023 8:23am Start: 11-04-2019 End: 11-14-2019 take 100 mg by mouth twice daily Doxycycline Hyclate Discontinued 100 MG PO Twice daily 31 07November 04, 2019 12:00am November 14, 2019 8:04am Start: 03-05-2018 End: 03-19-2018 take 100 mg by mouth twice daily Doxycycline Hyclate Discontinued 100 MG PO Twice daily March 04, 2018 11:00pm March 18, 2018 11:02pm Start: 02-04-2018 End: 02-18-2018 take 100 mg by mouth twice daily Doxycycline Hyclate Discontinued 100 MG PO Twice daily February 03, 2018 11:00pm February 17, 2018 11:01pm enteric contrast (will be provided with radiology test) (20 sources) Start: 09-19-[address] (will be provided with radiology test) For CT CHESTABD/PEL W IVCON Routine order Administer, As Directed One Time Only, via Oral, Rectal, both Oral and Rectal, Enteric Tube, Stoma or Indwelling Catheter, Enteric Contrast as designated per enteric contrast guidelines 1 Each 0 09/19/2021 Active Start: 04-03-[address] (will be provided with radiology test) For CT CHESTABD/PEL W IVCON Routine order Administer, As Directed One Time Only, via Oral, Rectal, both Oral and Rectal, Enteric Tube, Stoma or Indwelling Catheter, Enteric Contrast as designated per enteric contrast guidelines 1 Each 0 04/03/2021 Active Comment on above: For CT CHESTABD/PEL W IVCON Routine order Administer, As Directed One Time Only, via Oral, Rectal, both Oral and Rectal, Enteric Tube, Stoma or Indwelling Catheter, Enteric Contrast as designated per enteric contrast guidelines famotidine 20 mg oral tablet (7 sources) Histamine-2 Receptor Antagonist Start: End: take 20 mg by mouth twice daily Famotidine Discontinued 20 MG PO Twice daily 60 October 29, 2020 12:00am July 17, 2021 7:38am furosemide 40 mg oral tablet (7 sources) Loop Diuretic Start: End: take 40 mg by mouth once daily Furosemide Discontinued 40 MG PO Daily at 0800 30 October 29, 2020 12:00am July 17, 2021 7:38am gentamicin 0.001 mg/mg topical ointment (7 sources) Start: End: Gentamicin Discontinued 1 APPLIC TOPICAL Daily May 30, 2018 11:00pm June 29, 2018 11:01pm apply thin layer to left leg wound glimepiride 4 mg oral tablet (16 sources) Sulfonylurea Start: End: take 1 tablet by mouth twice daily Glimepiride (Amaryl) 4 mg Tablet Discontinued 4 MG PO Twice daily January 05, 2018 11:00pm March 25, 2023 1:33pm Comment on above: Take 4 mg by mouth t wice daily with meals. sodium hypochlorite 2.5 mg/ml topical solution (7 sources) Start: End: Sodium Hypochlorite (Dakin's Solution) 0.25 % solution Discontinued 1 APPLIC TOPICAL Daily 473 March 04, 2018 11:00pm November 02, 2018 9:58am ibuprofen 200 mg oral tablet (7 sources) Nonsteroidal Anti-inflammatory Drug Start: End: 019 take 200 mg by mouth every four to six hours Ibuprofen Discontinued 200 MG PO EVERY 4-6 HOURS January 05, 2018 11:00pm November 17, 2018 7:51am INV VITAMIN D3 5000 UNITS CAPSULE (IRB 19-1548) (10 sources) take 1 capsule by mouth once daily INV VITAMIN D3 5000 UNITS CAPSULE (IRB 19-1548) Take 5,000 Units by mouth once daily. For Investigational Drug Use Only. PI: Blanca Swan, PhD. Take one capsule by mouth daily for 3 months prior to surgery and 3 months after surgery. 0 Active Comment on above: Take 5,000 Units by mouth once daily. For Investigational Drug Use Only. PI: Blanca Swan, PhD. Take one capsule by mouth daily for 3 months prior to surgery and 3 months after surgery. iv contrast (will be provided with radiology test) (20 sources) Start: iv contrast (will be provided with radiology test) CT Chest ABD/PEL-Inject, intravenously, once for 1 dose.No IV access, insert saline lock prior to the beginning of sedation, infusion, injection of imaging exam. Discontinue saline lock post exam. If Pt. has a central line or IVAD, may access for administration according to line specific nursing protocol. Once exam is complete flush line and de-access according to line specific nursing protocol in the CT contrast administration guidelines link. 1 Each 0 09/19/2021 Active Start: 04-03-2021 iv contrast (w ill be provided with radiology test) CT Chest ABD/PEL-Inject, intravenously, once for 1 dose.No IV access, insert saline lock prior to the beginning of sedation, infusion, injection of imaging exam. Discontinue saline lock post exam. If Pt. has a central line or IVAD, may access for administration according to line specific nursing protocol. Once exam is complete flush line and de-access according to line specific nursing protocol in the CT contrast administration guidelines link. 1 Each 0 04/03/2021 Active Comment on above: CT Chest ABD/PEL-Inj ect, intravenously, once for 1 dose.No IV access, insert saline lock prior to the beginning of sedation, infusion, injection of imaging exam. Discontinue saline lock post exam. If Pt. has a central line or IVAD, may access for administration according to line specific nursing protocol. Once exam is complete flush line and de-access according to line specific nursing protocol in the CT contrast administration guidelines link. oxyCODONE hydrochloride 5 mg oral tablet (7 sources) Opioid Agonist Start: End: take 5 mg by mouth every four hours Oxycodone Discontinued 5 MG PO Every 4 hours 30 5 November 17, 2018 November 22, 2018 12:02am predniSONE 20 mg oral tablet (7 sources) Start: take 1 tablet by mouth every twenty-four hours predniSONE 20 MG 1 tablet Orally Once a day for 5 DAYS Oct, Not-Taking rivaroxaban 20 mg oral tablet (9 sources) Factor Xa Inhibitor Start: End: take 1 tablet by mouth once daily at dinner Rivaroxaban (Xarelto) 20 mg tablet Discontinued 20 MG PO Every evening October 29, 2020 12:00am July 17, 2021 7:38am must administer with evening meal sulfamethoxazole 800 mg / trimethoprim 160 mg oral tablet (20 sources) Dihydrofolate Reductase Inhibitor Antibacterial, Sulfonamide Antimicrobial Start: End: take 1 tablet by mouth twice daily Sulfamethoxazole-Tr imethoprim (Bactrim Ds) 800-160 mg tablet Discontinued 1 TAB PO Twice daily October 21, 2019 12:00am November 04, 2019 9:25am Start: 12-09-2018 End: 12-23-2018 take 1 tablet by mouth twice daily Sulfamethoxazole-Trimethoprim (Bactrim D s) 800-160 mg tablet Discontinued 1 TAB PO Twice daily December 09, 2018 12:00am December 22, 2018 11:02pm Start: 05-31-2018 End: 06-14-2018 take 1 tablet by mouth twice daily Sulfamethoxazole-Trimethoprim (Bactrim D s) 800-160 mg tablet Discontinued 1 TAB PO Twice daily May 30, 2018 11:00pm June 13, 2018 11:01pm SUPARTZ FX SODIUM HYALURONAT E (20 sources) Start: 02-11-2017 Start: 02-11-2017 SUPARTZ FX SOD IUM HYALURONATE February, 25 mg Start: 02-04-2017 Start: 02-04-2017 SUPARTZ FX SOD IUM HYALURONATE Jan, 25 mg Start: 01-28-2017 Start: 01-28-2017 SUPARTZ FX SOD IUM HYALURONATE Jan, 25 mg Start: 01-21-2017 Start: 01-21-2017 SUPARTZ FX SOD IUM HYALURONATE Jan, 25 mg Start: 01-14-2017 Start: 01-14-2017 SUPARTZ FX SOD IUM HYALURONATE Jan, 25 mg Triamcinolone (15 sources) Corticosteroid Start: 05-21-2016 Start: 05-21-2016 KENALOG - 10 m g May, 1 cc VITAMIN B COMPLEX ORAL (10 sources) VITAMIN B COMPLE X ORAL Take by mouth q 24 HR. 0 Active Comment on above: Take by mouth q 24 H R. Problems Active Problems Problem Classification Problem Date Documented Da te Episodic/Chronic Administrative/social admission (7 sources) Dietary counseling and surveillance Onset: 09-10-2021 Resolved: 04-09-2022 Episodic Cancer of uterus (20 sources) Malignant neoplasm of uterus; Translations: [Malignant neoplasm of uterus, part unspecified] Onset: 12-15-2015 Chronic Chronic ulcer of skin (20 sources) Ulcer; Translations: [Non-pressure chronic ulcer of skin of other sites with unspecified severity] 05-25-2019 Chronic Diabetes mellitus with complications (20 sources) Disorder of nervous system due to type 2 diabetes mellitus; Translations: [Type 2 diabetes mellitus with other diabetic neurological complication] Onset: 09-10-2021 Resolved: 12-18-2021 Chronic Diabetes mellitus without complication (20 sources) Type 2 diabetes mellitus; Translations: [Type 2 diabetes mellitus without complications] Onset: 12-15-2015 Resolved: 04-09-2022 Chronic Diabetes mellitus without complication (7 sources) Steroid-induced hyperglycemia; Translations: [Hyperglycemia, unspecified] 10-29-2020 Episodic Digestive congenital anomalies (10 sources) Anomalies of pancreas; 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 Disorders of lipid metabolism (20 sources) Hyperlipidemia; Translations: [Hyperlipidemia, unspecified] Onset: 12-21-2015 Resolved: 04-09-2022 Chronic Essential hypertension (20 sources) Hypertensive disorder; Translations: [Essential (primary) hypertension] Onset: 09-10-2021 Resolved: 04-09-2022 Chronic Mycoses (10 sources) Tinea cruris; Translations: [Tinea cruris] 04-20-2023 Episodic Nutritional deficiencies (19 sources) Vitamin D deficiency; Translations: [Vitamin D deficiency, unspecified] Onset: 09-23-2021 Resolved: 09-23-2021 Chronic Open wounds of head; neck; and trunk (7 sources) Wound abscess; Translations: [Wound abscess] 02-10-2018 Episodic Osteoarthritis (20 sources) Osteoarthritis of knee; Translations: [Osteoarthritis of knee, unspecified] Chronic Other aftercare (20 sources) Long-term current use of insulin; Translations: [emt 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 (current) use of insulin] Episodic Other aftercare (7 sources) prison (current) use of insulin Onset: 09-10-2021 Resolved: 04-09-2022 Episodic Other aftercare (2 sources) History of malignant neoplasm of endometrium; Translations: [Encounter for follow-up examination after completed treatment for malignant neoplasm] Episodic Other circulatory disease (18 sources) Elevated blood pressure; Translations: [Elevated blood-pressure reading, without diagnosis of hypertension] Episodic Other connective tissue disease (1 source) History of repair of hip joint; Translations: [Presence of right artificial hip joint] Chronic Other connective tissue disease (18 sources) History of total hip arthroplasty; Translations: [Presence of right artificial hip joint] Chronic Other diseases of veins and lymphatics (7 sources) Lymphedema of bilateral lower limbs; Translations: [Lymphedema, not elsewhere classified] 05-25-2019 Chronic Other diseases of veins and lymphatics (6 sources) Lymphedema, not elsewhere classified; Translations: [Other lymphedema] 03-30-2023 Chronic Other diseases of veins and lymphatics (18 sources) Peripheral venous insufficiency; Translations: [Venous insufficiency (chronic) (peripheral)] Episodic Other diseases of veins and lymphatics (7 sources) Venous insufficiency of leg; Translations: [Other specified disorders of veins] 12-07-2018 Episodic Other diseases of veins and lymphatics (6 sources) Other specified disorders of veins; Translations: [Venous (peripheral) insufficiency, unspecified] 03-30-2023 Episodic Other infections; including parasitic (7 sources) Disorder due to infection; Translations: [Unspecified infectious disease] 11-09-2019 Episodic Other lower respiratory disease (19 sources) Multiple nodules of lung; Translations: [Other nonspecific abnormal finding of lung field] Episodic Other lower respiratory disease (7 sources) Hypoxia; Translations: [Hypoxemia] 10-22-2020 Episodic Other lower respiratory disease (9 sources) Solitary nodule of lung; Translations: [Solitary pulmonary nodule] Episodic Other lower respiratory disease (1 source) Solitary pulmonary nodule Episodic Other non-traumatic joint disorders (18 sources) Joint pain; Translations: [Pain in unspecified joint] Episodic Other nutritional; endocrine; and metabolic disorders (20 sources) Morbid obesity; Translations: [Morbid (severe) obesity due to excess calories] Onset: 12-21-2015 12-21-2015 Chronic Other nutritional; endocrine; and metabolic disorders (20 sources) Body mass index 40+ - severely obese; Translations: [Body mass index (BMI) 40.0-44.9, adult] 10-22-2020 Chronic Other nutritional; endocrine; and metabolic disorders (7 sources) Body mass index (BMI) 45.0-49.9, adult Onset: 09-10-2021 Resolved: 04-09-2022 Chronic Other nutritional; endocrine; and metabolic disorders (7 sources) Obesity; Translations: [Obesity, unspecified] 05-25-2019 Chronic Other nutritional; endocrine; and metabolic disorders (6 sources) Obesity, unspecified; Translations: [Obesity, unspecified] 03-30-2023 Chronic Other screening for suspected conditions (not mental disorders or infectious disease) (19 sources) Patient encounter status; Translations: [Encounter for screening for malignant neoplasm of colon] Onset: 09-23-2021 Resolved: 09-23-2021 Episodic Other skin disorders (7 sources) 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; Translations: [Other specified disorders of pigmentation] 07-17-2021 Episodic Other skin disorders (6 sources) Other specified disorders of pigmentation; Translations: [Dyschromia, unspecified] 03-30-2023 Episodic Other skin disorders (2 sources) Disorder of the skin and subcutaneous tissue, unspecified Episodic Phlebitis; thrombophlebitis and thromboembolism (20 sources) H/O: Deep vein thrombosis; Translations: [Personal history of other venous thrombosis and embolism] Onset: 09-23-2021 Resolved: 09-23-2021 Episodic Residual codes; unclassified (7 sources) Edema of lower extremity; Translations: [Localized edema] 12-07-2018 Episodic Residual codes; unclassified (7 sources) Edema; Translations: [Edema, unspecified] 05-25-2019 Episodic Residual codes; unclassified (1 source) Family history of malignant neoplasm of pancreas; Translations: [Family history of malignant neoplasm of digestive organs] Episodic Residual codes; unclassified (6 sources) Edema, unspecified; Translations: [Edema] 03-30-2023 Episodic Respiratory failure; insufficiency; arrest (adult) (7 sources) Acute respiratory failure; Translations: [Acute respiratory failure with hypoxia] 10-22-2020 Episodic Respiratory failure; insufficiency; arrest (adult) (1 source) Respiratory failure; insufficiency; arrest (adult); Translations: [Venous insufficiency (chronic) (peripheral)] Onset: 09-15-2023 Skin and subcutaneous tissue infections (8 sources) Cellulitis; Translations: [Cellulitis, unspecified] 03-05-2018 Episodic Unclassified (11 sources) Inflammatory disorder; Translations: [Inflammation] 03-25-2023 Unclassified (1 source) Encounter for screening mammogram for malignant neoplasm of breast; Translations: [Encounter for screening mammogram for malignant neoplasm of breast] Onset: 07-15-2023 Unclassified (1 source) Non-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 to breakdown of skin; Translations: [Non-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 to breakdown of skin] Onset: 06-29-2023 Unclassified (1 source) Non-pressure chronic ulcer of unspecified part of left lower leg limited to breakdown of skin; Translations: [Non-pressure chronic ulcer of unspecified part of left lower leg limited to breakdown of skin] Onset: 04-30-2023 Varicose veins of lower extremity (20 sources) Varicose veins of lower extremity; Translations: [Asymptomatic varicose veins of unspecified lower extremity] 05-27-2018 Episodic Viral infection (14 sources) COVID-19; Translations: [Pneumonia due to COVID-19 virus] 10-22-2020 Episodic Past or Other Problems Problem Classification Problem Date Documented Da te Episodic/Chronic Anal and rectal conditions (1 source) Perianal abscess; Translations: [Anal abscess] Episodic Nutritional deficiencies (20 sources) Vitamin B12 deficiency (non anemic); Translations: [Deficiency of other specified B group vitamins] Onset: 09-10-2021 Resolved: 04-09-2022 Episodic Other non-traumatic joint disorders (1 source) Pain in right hip joint; Translations: [Pain in right hip] Episodic Other upper respiratory disease (1 source) Nasal congestion Onset: 03-25-2022 Resolved: 03-25-2022 Episodic Pancreatic disorders (not diabetes) (4 sources) Cyst of pancreas; Translations: [Cyst of pancreas] Onset: 09-17-2022 Episodic Pulmonary heart disease (10 sources) Pulmonary embolism; Translations: [Other pulmonary embolism without acute cor pulmonale] Onset: 08-07-2017 08-07-2017 Episodic Unclassified (1 source) Cough R05.9 Onset: 10-18-2021 Resolved: 10-18-2021 Results Test Name Value Interpretation Reference Range Facility Superficial Wound Cultureon 09-15-2023 Superficial Wound Culture LEGS ORGANISM: Enterobacter cloacae complex (O:ENTCLOCPLX) Quantity of Growth Heavy Growth ORGANISM: Staphylococcus aureus (O:STAAUR) Quantity of Growth Moderate Growth Aerobic KRIS Charge (NMIC56) --- SUSCEPTIBILITY -- ORGANISM: O:ENTCLOCPLX ANTIBIOTIC INTERPRETATION KRIS Amikacin S <16 Aztreonam IB <4 Cefepime S <2 Ceftazidime IB <1 Ceftriaxone IB <1 Cefuroxime R* 16 Ciprofloxacin S <0.25 Ertapenem S <0.5 Gentamicin S <2 Levofloxacin S <0.5 Meropenem S <1 Meropenem/Vaborbactam S <2 Piperacillin/Tazobacta m IB <8 Tetracycline S <4 Tigecycline S <2 Tobramycin S <2 Trimethoprim/Sulfameth oxazole S <0.5 Aerobic KRIS Charge (PCMIC38) --- SUSCEPTIBILITY -- ORGANISM: O:STAAUR ANTIBIOTIC INTERPRETATION KRIS Azithromycin R >4 Ceftaroline S <0.5 Ciprofloxacin S <1 Clindamycin R 0.5 Daptomycin S <0.5 Levofloxacin S <1 Linezolid S 2 Oxacillin S 0.5 Penicillin VERONIKA >2 Tetracycline S <4 Trimethoprim/Sulfameth oxazole S <0.5 Vancomycin S 1 S = SUSCEPTIBLE I = INTERMEDIATE R = RESISTANT BLANK = DATA NOT AVAILABLE, OR DRUG NOT ADVISABLE OR TESTED R* = RESISTANCE DUE TO EXTENDED SPECTRUM BETA-LACTAMASES ESBL = EXTENDED SPECTRUM BETA-LACTAMASE TFG = THYMIDINE-DEPENDENT STRAIN VERONIKA = BETA-LACTAMASE POSITIVE IB = INDUCIBLE BETA-LACTAMASE. APPEARS IN PLACE OF 'S' WITH SPECIES KNOWN TO POSSESS INDUCIBLE BETA-LACTAMASES. POTENTIALLY THEY MAY BECOME RESISTANT TO ALL B-LACTAM DRUGS. PERFORMED BY: [place] [address] PATHOLOGIST TRACTOR MECHANIC APPRENTICE LOCO PERRY M.D. [facility] Comment on above: Performed By: #### C USUP #### [place] [id number] [place] A1C HEMOGLOBINon 09-09-2023 HbA1c (Bld) [Mass fraction] 8.3 % [employer] Other Glucose - FINGER STICKon Glucose [Mass/Vol] 175 mg/dL [employer] Other HbA1c (Bld) [Mass fraction]o n 09-09-2023 A1C HEMOGLOBIN [facility] [employer] Other MM screening mammo BI w/CADo n 07-15-2023 MM screening mammo BI w/CAD [facility] Main [place] [address] [place], [place] [id number] Mammography Report Signed Patient: Magy Castro MR#: [id number] : 1955 Acct:[id number] Age/Sex: 67 / F ADM Date: 07/15/23 Loc: [place] Room: Type: [facility] Attending Dr: Referral Self Copies to: Sherman Larson DO SELF,REFERRAL Ordering Provider: SELF,REFERRAL Date of Service: 07/15/23 MM/MM screening mammo BI w/CAD: SCREENING CLINICAL DATA: Screening for malignancy. BILATERAL SCREENING MAMMOGRAMS - FULL FIELD DIGITAL WITH TOMOSYNTHESIS AND CAD Tomosynthesis craniocaudal and mediolateral oblique views of both breasts were obtained using low- dose digital technique. Comparison is made to prior studies from June 06, 2019 through June 11, 2022. This examination was reviewed with the aid of CAD. There are scattered fibroglandular densities. Benign and vascular calcifications are present. Similar bilateral asymmetries are seen. There are no developing masses, typically malignant calcifications or architectural distortion. There has been no significant interval change. MM/MM screening mammo BI w/CAD IMPRESSION: NO MAMMOGRAPHIC EVIDENCE OF MALIGNANCY. ROUTINE FOLLOW-UP IS RECOMMENDED IN ONE YEAR. RESULT CODE: 2 Benign Findings(s) DENSITY CODE: 2 (approximately 25-50% glandular) FOLLOW UP: 1YR The false-negative rate of mammography is approximately 10-percent. Management of a palpable abnormality must be based on clinical grounds. Patient was entered into a reminder system with a target due date for the next mammogram. Impression dictated by: Jennifer Yarbrough M.D.07/15/2023 2:50 PM Dictation Location: [facility] Transcribed By: SAL 07/15/23 1450 Dictated By: Jennifer Yarbrough MD 07/15/23 1443 Signed By: 07/15/23 1450 Normal [facility] Alanine aminotransferase [En zymatic activity/volume] in Serum or PlasmaOrdered By: Sherman Larson on 03-31-2023 ALT [Catalytic activity/Vol] 17 U/L 7-52 [facility] Albumin [Mass/volume] in Ser um or Plasma by Bromocresol green (BCG) dye binding methoOrdered By: Sherman Larson on 03-31-2023 Albumin BCG dye [Mass/Vol] 4.1 g/dL 3.5-5.7 [facility] Alkaline phosphatase [Enzyma tic activity/volume] in Serum or PlasmaOrdered By: Sherman Larson on 03-31-2023 ALP [Catalytic activity/Vol] 55 U/L 34-104 [facility] Aspartate aminotransferase [ Enzymatic activity/volume] in Serum or PlasmaOrdered By: Sherman Larson on 03-31-2023 AST [Catalytic activity/Vol] 14 U/L 13-39 [facility] Basophils Auto (Bld) [#/Vol] Ordered By: Sherman Larson on 03-31-2023 Basophils (Bld) [#/Vol] 0.0 10*3/uL 0.0-0.2 [facility] Basophils/100 WBC Auto (Bld) Ordered By: Sherman Larson on 03-31-2023 Basophils/100 WBC (Bld) 0.6 % . [facility] Bilirubin.total [Mass/volume ] in Serum or PlasmaOrdered By: Sherman Larson on 03-31-2023 Bilirubin [Mass/Vol] 0.5 mg/dL 0.3-1.0 [facility] Calcium [Mass/volume] in Ser um or PlasmaOrdered By: Sherman Larson on 03-31-2023 Calcium [Mass/Vol] 9.2 mg/dL 8.6-10.3 [facility] Carbon dioxide, total [Moles /volume] in Serum or PlasmaOrdered By: Sherman Larson on 03-31-2023 CO2 [Moles/Vol] 24.9 mmol/L 21.0-31.0 [facility] Chloride [Moles/volume] in [place] or PlasmaOrdered By: Sherman Larson on 03-31-2023 Chloride [Moles/Vol] 103 mmol/L 98-107 [facility] Cholesterol [Mass/volume] in Serum or PlasmaOrdered By: Sherman Larson on 03-31-2023 Cholesterol [Mass/Vol] 144 mg/dL 140-200 [facility] Comment on above: Chol less than 200 m g/dl low riskChol 201-239 mg/dl borderline riskChol 240 mg/dl and greater high risk Cholesterol in LDL Calc [Mas s/Vol]Ordered By: Sherman Larson on 03-31-2023 Cholesterol in LDL [Mass/Vol] 61 mg/dL 0-100 [facility] Comment on above: LDL ATP III CLASSIFI CATIONLDL less than 100 mg/dL OptimalLDL 100-129 mg/dL Near or above optimalLDL 130-159 mg/dL Borderline highLDL 160-189 mg/dL HighLDL greater than 189 mg/dL Very high Cholesterol in VLDL Calc [Ma ss/Vol]Ordered By: Sherman Larson on 03-31-2023 Cholesterol in VLDL [Mass/Vol] 43 mg/dL [facility] Complete Blood Count Auto Di ffon 03-31-2023 Basophils (Bld) [#/Vol] 0.0 10*3/uL Normal 0.0-0.2 [facility] Comment on above: Order Comment: Reaso n for Exam Hyperlipidemia Result Comment: PERF ORMED BY: [place] [address] PATHOLOGIST TRACTOR MECHANIC APPRENTICE LOCO PERRY M.D. Performed By: #### C BC #### [facility] [address] [place] [address] [place] Basophils/100 WBC (Bld) 0.6 % Normal . [facility] Comment on above: Order Comment: Reaso n for Exam Hyperlipidemia Performed By: #### C BC #### [facility] [address] [place] [address] [place] Eosinophils (Bld) [#/Vol] 0.1 10*3/uL Normal 0.0-0.45 [facility] Comment on above: Order Comment: Reaso n for Exam Hyperlipidemia Performed By: #### C BC #### [facility] [address] [place] [address] [place] Eosinophils/100 WBC (Bld) 2.0 % Normal . [facility] Comment on above: Order Comment: Reaso n for Exam Hyperlipidemia Performed By: #### C BC #### [facility] [address] [place] [address] [place] Erythrocyte distribution width (RBC) [Ratio] 17.0 % High 11.9-15.3 [facility] Comment on above: Order Comment: Reaso n for Exam Hyperlipidemia Performed By: #### C BC #### [facility] [address] [place] [address] [place] Hematocrit (Bld) [Volume fraction] 43.0 % Normal 34.0-46.4 [facility] Comment on above: Order Comment: Reaso n for Exam Hyperlipidemia Performed By: #### C BC #### [facility] [address] [place], [place] [id number] [place] Hemoglobin (Bld) [Mass/Vol] 13.9 g/dL Normal 11.8-15.4 [facility] Comment on above: Order Comment: Reaso n for Exam Hyperlipidemia Performed By: #### C BC #### [address] Lymphocytes (Bld) [#/Vol] 1.8 10*3/uL Normal 1.00-4.8 [facility] Comment on above: Order Comment: Reaso n for Exam Hyperlipidemia Performed By: #### C BC #### [address] Lymphocytes/100 WBC (Bld) 25.6 % Normal . [facility] Comment on above: Order Comment: Reaso n for Exam Hyperlipidemia Performed By: #### C BC #### [address] MCH (RBC) [Entitic mass] 26.9 pg Normal 24.7-34.3 [facility] Comment on above: Order Comment: Reaso n for Exam Hyperlipidemia Performed By: #### C BC #### [address] MCV (RBC) [Entitic vol] 82.9 fL Normal 80-100 [facility] Comment on above: Order Comment: Reaso n for Exam Hyperlipidemia Performed By: #### C BC #### [address] Mean Corpuscular HGB Conc 32.4 g/dL Normal 32.0-35.0 [facility] Comment on above: Order Comment: Reaso n for Exam Hyperlipidemia Performed By: #### C BC #### [place] [address] [place] Monocytes (Bld) [#/Vol] 0.5 10*3/uL Normal 0.0-0.8 [facility] Comment on above: Order Comment: Reaso n for Exam Hyperlipidemia Performed By: #### C BC #### [place] [address] [place] Monocytes/100 WBC (Bld) 7.5 % Normal . [facility] Comment on above: Order Comment: Reaso n for Exam Hyperlipidemia Performed By: #### C BC #### [facility] [address] [place] [address] [place] Neutrophils (Bld) [#/Vol] 4.6 10*3/uL Normal 1.8-7.7 [facility] Comment on above: Order Comment: Reaso n for Exam Hyperlipidemia Performed By: #### C BC #### [facility] [address] [place] [id number] [place] Neutrophils/100 WBC (Bld) 64.3 % Normal . [facility] Comment on above: Order Comment: Reaso n for Exam Hyperlipidemia Performed By: #### C BC #### [facility] [address] NRBC% 0.1 /100{WBC} Normal 0-0.5 [facility] Comment on above: Order Comment: Reaso n for Exam Hyperlipidemia Performed By: #### C BC #### [address] Platelet mean volume (Bld) [Entitic vol] 7.4 fL Normal 6.3-10.7 [facility] Comment on above: Order Comment: Reaso n for Exam Hyperlipidemia Performed By: #### C BC #### [facility] [address] [place] [address] [place] Platelets (Bld) [#/Vol] 298 10*3/uL Normal 150-450 [facility] Comment on above: Order Comment: Reaso n for Exam Hyperlipidemia Performed By: #### C BC #### [facility] [address] [place] [address] [place] RBC (Bld) [#/Vol] 5.19 10*6/uL High 3.60-5.00 [facility] Comment on above: Order Comment: Reaso n for Exam Hyperlipidemia Performed By: #### C BC #### [place] [address] [place] WBC (Bld) [#/Vol] 7.2 10*3/uL Normal 3.8-11.6 [facility] Comment on above: Order Comment: Reaso n for Exam Hyperlipidemia Performed By: #### C BC #### [facility] [address] Comprehensive Metabolic Pane riaz 03-31-2023 Albumin [Mass/Vol] 4.1 g/dL Normal 3.5-5.7 [facility] Comment on above: Order Comment: Reaso n for Exam Hyperlipidemia Performed By: #### C MP, LIPID #### [facility] [address] Albumin/Globulin [Mass ratio] 1.3 {ratio} Normal [facility] Comment on above: Order Comment: Reaso n for Exam Hyperlipidemia Performed By: #### C MP, LIPID #### [facility] [address] [place] [address] ALP [Catalytic activity/Vol] 55 U/L Normal 34-104 [facility] Comment on above: Order Comment: Reaso n for Exam Hyperlipidemia Performed By: #### C MP, LIPID #### [facility] [address] [place] [address] ALT [Catalytic activity/Vol] 17 U/L Normal 7-52 [facility] Comment on above: Order Comment: Reaso n for Exam Hyperlipidemia Performed By: #### C MP, LIPID #### [facility] [address] [place] [address] Anion gap [Moles/Vol] 12.2 mmol/L Normal 6.0-15.0 [facility] Comment on above: Order Comment: Reaso n for Exam Hyperlipidemia Performed By: #### C MP, LIPID #### [facility] [address] [place] [address] AST [Catalytic activity/Vol] 14 U/L Normal 13-39 [facility] Comment on above: Order Comment: Reaso n for Exam Hyperlipidemia Performed By: #### C MP, LIPID #### [facility] [address] [place] [address] Bilirubin [Mass/Vol] 0.5 mg/dL Normal 0.3-1.0 [facility] Comment on above: Order Comment: Reaso n for Exam Hyperlipidemia Performed By: #### C MP, LIPID #### [facility] [address] [place] [address] Calcium [Mass/Vol] 9.2 mg/dL Normal 8.6-10.3 [facility] Comment on above: Order Comment: Reaso n for Exam Hyperlipidemia Performed By: #### C MP, LIPID #### [facility] [address] Chloride [Moles/Vol] 103 mmol/L Normal 98-107 [facility] Comment on above: Order Comment: Reaso n for Exam Hyperlipidemia Performed By: #### C MP, LIPID #### [facility] [address] CO2 [Moles/Vol] 24.9 mmol/L Normal 21.0-31.0 [facility] Comment on above: Order Comment: Reaso n for Exam Hyperlipidemia Performed By: #### C MP, LIPID #### [facility] [address] [place] [address] Creatinine [Mass/Vol] 0.68 mg/dL Normal 0.60-1.20 [facility] Comment on above: Order Comment: Reaso n for Exam Hyperlipidemia Performed By: #### C MP, LIPID #### [facility] [address] [place] [address] GFR/1.73 sq M.predicted MDRD (S/P/Bld) [Vol rate/Area] mL/min/{1.73_m2} Normal [facility] Comment on above: Order Comment: Reaso n for Exam Hyperlipidemia Performed By: #### C MP, LIPID #### [facility] [address] Globulin (S) [Mass/Vol] 3.1 g/dL Normal [facility] Comment on above: Order Comment: Reaso n for Exam Hyperlipidemia Performed By: #### C MP, LIPID #### [facility] [address] [place] [address] [place] Glucose [Mass/Vol] 139 mg/dL High 70-100 [facility] Comment on above: Order Comment: Reaso n for Exam Hyperlipidemia Result Comment: [facility] Glucose Reference Range is dependent on time and content of last meal. Glucose of more than 200 mg/dL in a nonstressed, ambulatory subject supports the diagnosis of Diabetes Mellitus. ADA recommended reference range Performed By: #### C MP, LIPID #### [facility] [address] Potassium [Moles/Vol] 4.1 mmol/L Normal 3.5-5.1 [facility] Comment on above: Order Comment: Reaso n for Exam Hyperlipidemia Performed By: #### C MP, LIPID #### [facility] [address] Protein [Mass/Vol] 7.2 g/dL Normal 6.4-8.9 [facility] Comment on above: Order Comment: Reaso n for Exam Hyperlipidemia Performed By: #### C MP, LIPID #### [facility] [address] [place] [address] Sodium [Moles/Vol] 136 mmol/L Normal 136-145 [facility] Comment on above: Order Comment: Reaso n for Exam Hyperlipidemia Performed By: #### C MP, LIPID #### [facility] [address] [place] [address] [place] Urea nitrogen [Mass/Vol] 19 mg/dL Normal 7-25 [facility] Comment on above: Order Comment: Reaso n for Exam Hyperlipidemia Performed By: #### C MP, LIPID #### [address] Creatinine [Mass/volume] in Serum or PlasmaOrdered By: Sherman Larson on 03-31-2023 Creatinine [Mass/Vol] 0.68 mg/dL 0.60-1.20 [facility] Creatinine [Mass/volume] in UrineOrdered By: Rosanne Dumont on 03-31-2023 Creatinine (U) [Mass/Vol] 70.0 mg/dL 11.0-20.0 [facility] Eosinophils Auto (Bld) [#/Vo l]Ordered By: Sherman Larson on 03-31-2023 Eosinophils (Bld) [#/Vol] 0.1 10*3/uL 0.0-0.45 [facility] Eosinophils/100 WBC Auto (Bl d)Ordered By: Sherman Larson on 03-31-2023 Eosinophils/100 WBC (Bld) 2.0 % . [facility] Erythrocyte distribution wid th Auto (RBC) [Ratio]Ordered By: Sherman Larson on 03-31-2023 Erythrocyte distribution width (RBC) [Ratio] 17.0 % 11.9-15.3 [facility] Globulin Calc (S) [Mass/Vol] Ordered By: Sherman Larson on 03-31-2023 Globulin (S) [Mass/Vol] 3.1 g/dL [facility] Glucose [Mass/volume] in Ser um or PlasmaOrdered By: Sherman Larson on 03-31-2023 Glucose [Mass/Vol] 139 mg/dL 70-100 [facility] Comment on above: ADA recommended refe rence rangeRandom Glucose Reference Range is dependent on time and content of last meal. Glucose of more than 200 mg/dL in a nonstressed, ambulatory subject supports the diagnosis of Diabetes Mellitus. Hematocrit Auto (Bld) [Volum e fraction]Ordered By: Sherman Larson on 03-31-2023 Hematocrit (Bld) [Volume fraction] 43.0 % 34.0-46.4 [facility] Hemoglobin [Mass/volume] in BloodOrdered By: Sherman Larson on 03-31-2023 Hemoglobin (Bld) [Mass/Vol] 13.9 g/dL 11.8-15.4 [facility] Leukocytes [#/volume] correc kedar for nucleated erythrocytes in Blood by Automated counOrdered By: Sherman Larson on 03-31-2023 WBC corrected for nucl RBC Auto (Bld) [#/Vol] 7.2 10*3/uL 3.8-11.6 [facility] Lipid Panelon 03-31-2023 Cholesterol [Mass/Vol] 144 mg/dL Normal 140-200 [facility] Comment on above: Order Comment: Reaso n for Exam Hyperlipidemia Result Comment: Chol less than 200 mg/dl low risk Chol 201-239 mg/dl borderline risk Chol 240 mg/dl and greater high risk Performed By: #### C MP, LIPID #### [facility] [address] [place] [address] Cholesterol in HDL [Mass/Vol] 39 mg/dL Normal 23-92 [facility] Comment on above: Order Comment: Reaso n for Exam Hyperlipidemia Result Comment: HDL CHOL ATP-III CLASSIFICATION Cardiovascular Risk HDL > or equal to 60 mg/dL LOW HDL < 40 mg/dL HIGH Performed By: #### C MP, LIPID #### [facility] [address] Cholesterol.total/Zahra sterol in HDL [Mass ratio] 3.7 {ratio} Normal <5.0 [facility] Comment on above: Order Comment: Reaso n for Exam Hyperlipidemia Result Comment: PERF ORMED BY: [place] [address] PATHOLOGIST TRACTOR MECHANIC APPRENTICE LOCO PERRY M.D. Performed By: #### C MP, LIPID #### [facility] [address] LDL Cholesterol,Calculated 61 mg/dL Normal 0-100 [facility] Comment on above: Order Comment: Reaso n for Exam Hyperlipidemia Result Comment: LDL ATP III CLASSIFICATION LDL less than 100 mg/dL Optimal LDL 100-129 mg/dL Near or above optimal LDL 130-159 mg/dL Borderline high LDL 160-189 mg/dL High LDL greater than 189 mg/dL Very high Performed By: #### C MP, LIPID #### [address] Triglyceride w/Reflex 218 mg/dL High 0-149 [facility] Comment on above: Order Comment: Reaso n for Exam Hyperlipidemia Result Comment: TRIG ATP III CLASSIFICATION TRIG less than 150 mg/dL Normal TRIG 150-199 mg/dL Borderline high TRIG 200-500 mg/dL High TRIG greater than 500 mg/dL Very high Standard traceable to the Center for Disease Conrtrol and Prevention (CDC) test method. Performed By: #### C MP, LIPID #### [facility] [address] VLDL CHOLESTEROL 43 mg/dL Normal [facility] Comment on above: Order Comment: Reaso n for Exam Hyperlipidemia Performed By: #### C MP, LIPID #### [facility] [address] [place] [address] [place] Lymphocytes Auto (Bld) [#/Vo l]Ordered By: Sherman Larson on 03-31-2023 Lymphocytes (Bld) [#/Vol] 1.8 10*3/uL 1.00-4.8 [facility] Lymphocytes/100 WBC Auto (Bl d)Ordered By: Sherman Larson on 03-31-2023 Lymphocytes/100 WBC (Bld) 25.6 % . [facility] MCH Auto (RBC) [Entitic mass ]Ordered By: Sherman Larson on 03-31-2023 MCH (RBC) [Entitic mass] 26.9 pg 24.7-34.3 [facility] MCHC Auto (RBC) [Mass/Vol]Or dered By: Sherman Larson on 03-31-2023 MCHC (RBC) [Mass/Vol] 32.4 g/dL 32.0-35.0 [facility] MCV Auto (RBC) [Entitic vol] Ordered By: Sherman Larson on 03-31-2023 MCV (RBC) [Entitic vol] 82.9 fL 80-100 [facility] Creat Ratio,Uon Albumin DL <= 20 mg/L (U) [Mass/Vol] 0.9 mg/dL Normal 0.0-1.8 [facility] Comment on above: Order Comment: Reaso n for Exam Type 2 diabetes mellitus Performed By: #### B 12, URMACRERAT #### [facility] [address] [id number] [facility] Creatinine, Urine (Random) 70.0 mg/dL High 11.0-20.0 [facility] Comment on above: Order Comment: Reaso n for Exam Type 2 diabetes mellitus Performed By: #### B 12, URMACRERAT #### [facility] [address] [place] [address] [place] Microalbumin/Creatinine Ratio 12.0 mg/g Normal 0.0-30.0 [facility] Comment on above: Order Comment: Reaso n for Exam Type 2 diabetes mellitus Result Comment: 30-3 00 mg/g indicates an increased risk for diabetic nephropathy. Greater than 300 mg/g is consistent with clinical nephropathy. (Am. J. Kidney Disease 1995, 25:107) PERFORMED BY: [place] [address] PATHOLOGIST TRACTOR MECHANIC APPRENTICE LOCO PERRY M.D. Performed By: #### B 12, DEMETRIA #### [address] Microalbumin [Mass/volume] i n UrineOrdered By: Rosanne Dumont on 03-31-2023 Albumin DL <= 20 mg/L (U) [Mass/Vol] 0.9 mg/dL 0.0-1.8 [facility] Monocytes Auto (Bld) [#/Vol] Ordered By: Sherman Larson on 03-31-2023 Monocytes (Bld) [#/Vol] 0.5 10*3/uL 0.0-0.8 [facility] Monocytes/100 WBC Auto (Bld) Ordered By: Sherman Larson on 03-31-2023 Monocytes/100 WBC (Bld) 7.5 % . [facility] Neutrophils Auto (Bld) [#/Vo l]Ordered By: Sherman Larson on 03-31-2023 Neutrophils (Bld) [#/Vol] 4.6 10*3/uL 1.8-7.7 [facility] Neutrophils/100 WBC Auto (Bl d)Ordered By: Sherman Larson on 03-31-2023 Neutrophils/100 WBC (Bld) 64.3 % . [facility] No Panel InformationOrdered By: Sherman Larson on 03-31-2023 Estimated GFR (CKD-EPI) > 60.0 mL/Min [facility] Creatinine Clearance (Chem N/A [facility] Nucleated erythrocytes [Pres ence] in Blood by Automated countOrdered By: Sherman Larson on 03-31-2023 Nucleated RBC Auto Ql (Bld) 0.1 /100{WBC} 0-0.5 [facility] Platelet mean volume Auto (B ld) [Entitic vol]Ordered By: Sherman Larson on 03-31-2023 Platelet mean volume (Bld) [Entitic vol] 7.4 fL 6.3-10.7 [facility] Platelets Auto (Bld) [#/Vol] Ordered By: Sherman Larson on 03-31-2023 Platelets (Bld) [#/Vol] 298 10*3/uL 150-450 [facility] Potassium [Moles/volume] in Serum or PlasmaOrdered By: Sherman Larson on 03-31-2023 Potassium [Moles/Vol] 4.1 mmol/L 3.5-5.1 [facility] Protein [Mass/volume] in Ser um or PlasmaOrdered By: Sherman Larson on 03-31-2023 Protein [Mass/Vol] 7.2 g/dL 6.4-8.9 [facility] RBC Auto (Bld) [#/Vol]Ordere d By: Sherman Larson on 03-31-2023 RBC (Bld) [#/Vol] 5.19 10*6/uL 3.60-5.00 [facility] Serum or plasma albumin/glob ulin mass ratioOrdered By: Sherman Larson on 03-31-2023 Albumin/Globulin [Mass ratio] 1.3 {ratio} [facility] Serum or plasma anion gap de terminationOrdered By: Sherman Larson on 03-31-2023 Anion gap [Moles/Vol] 12.2 mmol/L 6.0-15.0 [facility] Serum or plasma high density lipoprotein (HDL) cholesterol measurementOrdered By: Sherman Larson on 03-31-2023 Cholesterol in HDL [Mass/Vol] 39 mg/dL 23-92 [facility] Comment on above: HDL CHOL ATP-III CLA SSIFICATION Cardiovascular RiskHDL > or equal to 60 mg/dL LOWHDL < 40 mg/dL HIGH Serum or plasma total choles terol/high density lipoprotein (HDL) cholesterol mass ratOrdered By: Sherman Larson on 03-31-2023 Cholesterol.total/Zahra sterol in HDL [Mass ratio] 3.7 {ratio} <5.0 [facility] Sodium [Moles/volume] in Ser um or PlasmaOrdered By: Sherman Larson on 03-31-2023 Sodium [Moles/Vol] 136 mmol/L 136-145 [facility] Thyroid Stimulating Hormoneo n 03-31-2023 TSH Qn 2.43 m[IU]/L Normal 0.45-5.33 [facility] Comment on above: Order Comment: Reaso n for Exam Hyperlipidemia Result Comment: PERF ORMED BY: [place] [address] PATHOLOGIST TRACTOR MECHANIC APPRENTICE LOCO PERRY M.D. Performed By: #### T SH3 #### [address] Thyrotropin [Units/volume] i n Serum or PlasmaOrdered By: Sherman Larson on 03-31-2023 TSH Qn 2.43 m[IU]/L 0.45-5.33 [facility] Triglyceride [Mass/volume] i n Serum or PlasmaOrdered By: Sherman Larson on 03-31-2023 Triglyceride [Mass/Vol] 218 mg/dL 0-149 [facility] Comment on above: TRIG ATP III CLASSIF ICATIONTRIG less than 150 mg/dL NormalTRIG 150-199 mg/dL Borderline highTRIG 200-500 mg/dL High TRIG greater than 500 mg/dL Very highStandard traceable to the Center for Disease Conrtrol and Prevention (CDC) test method. Urea nitrogen [Mass/volume] in Serum or PlasmaOrdered By: Sherman Larson on 03-31-2023 Urea nitrogen [Mass/Vol] 19 mg/dL 05-05 [facility] Urine microalbumin/creatinin e mass ratioOrdered By: Rosanne Dumont on 03-31-2023 Albumin/Creatinine DL <= 20 mg/L (U) [Mass ratio] 12.0 mg/g 0.0-30.0 [facility] Comment on above: 30-300 mg/g indicate s an increased risk for diabetic nephropathy. Greater than 300 mg/g is consistent with clinical nephropathy. (Am. J. Kidney Disease 1995, 25:107) Vitamin B12on 03-31-2023 Cobalamin (Vitamin B12) [Mass/Vol] 221 pg/mL Normal 180-914 [facility] Comment on above: Order Comment: Reaso n for Exam Type 2 diabetes mellitus;B12 deficiency Result Comment: PERF ORMED BY: [address] [address] PATHOLOGIST TRACTOR MECHANIC APPRENTICE LOCO PERRY M.D. Performed By: #### B 12, DEMETRIA #### [facility] [address] Vitamin B12 ser/plasOrdered By: Rosanne Dumont on 03-31-2023 Cobalamin (Vitamin B12) [Mass/Vol] 221 pg/mL 180-914 [facility] WBC Auto (Bld) [#/Vol]Ordere d By: Sherman Larson on 03-31-2023 WBC (Bld) [#/Vol] 7.2 10*3/uL 3.8-11.6 [facility] ANES POSTPROC EVALon 023 ANES POSTPROC EVAL HNO ID: [id number] Author: Mavis Acuna MD Service: Anesthesiology Author Type: Anesthesiologist Type: Anesthesia Postprocedure Evaluation Filed: 02/20/2023 11:09 AM Note Text: POST ANESTHESIA EVALUATION NOTE : 1955 Procedure Summary Date: 02/19/23 Room / Location: [facility] Endoscopy - ENDO Anesthesia Start: 1412 Anesthesia Stop: 1447 Procedure: EGD - THERAPEUTIC, EUS, OR TUBE INTERVENTIONS Diagnosis: Pancreatic cyst (For evaluation of pancreatic cystic neoplasm) Scheduled Providers: Lior Linton MD; SIGRID Neal; Mavis Acuna MD Responsible Provider: Mavis Acuna MD Anesthesia Type: MAC ASA Status: 3 Anesthesia Type: MAC Last Vitals Vitals Value Taken Time BP 132/58 02/19/23 1515 Temp 36 ?C (96.8 ?F) 02/19/23 1444 HR SpO2 85 02/19/23 1515 Resp 19 02/19/23 1515 SpO2 98 % 02/19/23 1516 Vitals shown include unvalidated device data. Post Anesthesia Patient Status Patient Evaluation: PACU. PACU/ICU Patient Condition: stable. Anticipated Disposition: phase 2 then home. Neurological Status: aware and responsive. Pulmonary Status: breathing comfortably on room air Airway Control: returned to baseline unsupported. Cardiovascular Status: stable. Pain Management: clinically adequate Postoperative Hydration: acceptable. Intraoperative Events: no significant anesthesia events Recommendation: continue current plan of care. Anesthesia Observations No Documentation SIGNATURE: Mavis Acuna MD PATIENT NAME: Magy Castro DATE: February 19, 2023 TIME: 1510 CSN: [id number] Normal [facility] ANES PRE-OPon 02-19-2023 ANES PRE-OP HNO ID: [id number] Author: Mavis Acuna MD Service: Anesthesiology Author Type: Anesthesiologist Type: Anesthesia Preprocedure Evaluation Filed: 02/19/2023 1:52 PM Note Text: ANESTHESIOLOGY DAY OF SURGERY NOTE : 1955 Procedure Information Date/Time: 02/19/23 1230 Scheduled providers: Lior Linton MD; SIGRID Neal; Mavis Acuna MD Procedure: EGD - THERAPEUTIC, EUS, OR TUBE INTERVENTIONS Location: [facility] Endoscopy - ENDO Estimated body mass index is 45.33 kg/m? as calculated from the following: Height as of 02/02/23: 161.3 cm (5' 3.5 ). Weight as of 02/02/23: 117.9 kg (260 lb). Most recent hematocrit and potassium results: Hematocrit 42.3 11/25/2017 Potassium 4.2 07/01/2016 Relevant Problems CARDIO (+) Pulmonary embolus (HCC) ENDO (+) Type 2 diabetes mellitus without complication (HCC) I - PHYSICAL EVALUATION AIRWAY Patient intubated: No. Tracheostomy tube not present Mallampati: II. TM distance: >3 FB. Neck ROM: full ROM without neurological symptoms. Mouth opening: adequate. Short neck: no. Thick neck: no Additional exam findings: yes. CARDIOVASCULAR Normal cardiovascular observations. PULMONARY Normal pulmonary observations. Breath sounds clear to auscultation. II - ANESTHESIA PLAN ASA Score: 3 Anesthetic Plan: MAC The patient is not a current smoker. NPO Status: adequate Beta Angela Monitoring Plan Monitoring plan: standard ASA. Post Procedure Analgesic Plan Postoperative analgesic plan: multimodal analgesia. Informed Consent Anesthetic risks, benefits, alternatives, personnel and consent discussed: yes. Patient / Responsible Green Party agrees to proceed: yes Patient / Surrogate agrees to blood products: blood products not planned DNR status not reviewed with patient and/or family prior to surgery. Significant changes in the patient condition since the History and Physical, not otherwise documented in primary service progress note: no. Potential Anesthesia issues that may suggest increased risk of complications or contraindication to planned procedure: none. No vitals data found for the desired time range. Outpatient Medications as of 02/19/2023 Medication Sig - insulin glargine (LANTUS) 100 unit/mL (3 mL) inpn Inject 40 Units subcutaneously daily at bedtime. - FIASP FLEXTOUCH U-100 INSULIN 100 unit/mL (3 mL) pen - aspirin, enteric coated (ASPIRIN, ENTERIC COATED) 81 mg EC tablet Aspirin (Aspirin Low Dose) 81 mg Tablet,Delayed Release (Dr/Ec) Active 2 TAB PO Daily December 07, 2018 11:02am - cyanocobalamin (VITAMIN B-12) 1,000 mcg tab Cyanocobalamin (Vitamin B-12) (Vitamin B-12) 1,000 mcg Tablet Active 1000 MCG PO Daily January 06, 2018 9:27am - VITAMIN B COMPLEX ORAL Take by mouth q 24 HR. - INV VITAMIN D3 5000 UNITS CAPSULE (IRB 19-1548) Take 5,000 Units by mouth once daily. For Investigational Drug Use Only. PI: Blanca Swan, PhD. Take one capsule by mouth daily for 3 months prior to surgery and 3 months after surgery. - iv contrast (will be provided with radiology test) CT Chest ABD/PEL-Inject, intravenously, once for 1 dose.No IV access, insert saline lock prior to the beginning of sedation, infusion, injection of imaging exam. Discontinue saline lock post exam. If Pt. has a central line or IVAD, may access for administration according to line specific nursing protocol. Once exam is complete flush line and de-access according to line specific nursing protocol in the CT contrast administration guidelines link. - enteric contrast (will be provided with radiology test) For CT CHESTABD/PEL W IVCON Routine order Administer, As Directed One Time Only, via Oral, Rectal, both Oral and Rectal, Enteric Tube, Stoma or Indwelling Catheter, Enteric Contrast as designated per enteric contrast guidelines - iv contrast (will be provided with radiology test) CT Chest ABD/PEL-Inject, intravenously, once for 1 dose.No IV access, insert saline lock prior to the beginning of sedation, infusion, injection of imaging exam. Discontinue saline lock post exam. If Pt. has a central line or IVAD, may access for administration according to line specific nursing protocol. Once exam is complete flush line and de-access according to line specific nursing protocol in the CT contrast administration guidelines link. - enteric contrast (will be provided with radiology test) For CT CHESTABD/PEL W IVCON Routine order Administer, As Directed One Time Only, via Oral, Rectal, both Oral and Rectal, Enteric Tube, Stoma or Indwelling Catheter, Enteric Contrast as designated per enteric contrast guidelines - metFORMIN (GLUCOPHAGE) 1,000 mg tablet Take 1,000 mg by mouth twice daily with meals. - empagliflozin 25 mg tab Take 25 mg by mouth once daily. - liraglutide (VICTOZA) 0.6 mg/0.1 mL (18 mg/3 mL) pnij Inject 1.8 mg subcutaneously once daily. - atorvastatin (LIPITOR) 10 mg tablet Take 10 mg by mouth once (more content not included)... Normal [facility] CYTOLOGY NON-GYNon 3 CASE REPORT Normal [facility] Comment on above: Order Comment: Speci men Type: SPECIMEN OBTAINED BY ASPIRATION Ordering Facility: [facility] Address: [address] [place] [address] Result Comment: [facility] Cytology Report Case: [id number] Authorizing Provider: Lior Linton MD Collected: 02/19/2023 02:27 PM Ordering Location: [facility] Received: 02/20/2023 07:02 AM Endoscopy - ENDO Pathologist: Mat Montez MD Specimen: PANCREAS FINE NEEDLE ASPIRATION Performed By: #### C YTONON #### [facility] [place] CLIA [id number] [address] [place] [address] OF [facility] CLIA [id number] [address] [place] [address] [place] [facility] CLINICAL HISTORY Pancreatic cyst Normal [facility] Comment on above: Order Comment: Speci men Type: SPECIMEN OBTAINED BY ASPIRATION Ordering Facility: [facility] Address: [address] [address] Performed By: #### C YTONON #### [facility] CLIA [id number] [address] STATES OF [facility] CLIA [id number] [address] DIAGNOSIS COMMENT Normal [facility] Comment on above: Order Comment: Speci men Type: SPECIMEN OBTAINED BY ASPIRATION Ordering Facility: [facility] Address: [address] [place] [id number] Result Comment: The specimen is limited in cellularity. Immunohistochemical stain for AE1/AE3 is positive. Synaptophysin, chromogranin and inhibin are negative. The immunohistochemical staining pattern supports the above diagnosis. Selected slides were reviewed in consultation with Dr. Oconnor, who concurs. Laboratory Developed Test (LDT) Disclaimer: Performance characteristics of immunohistochemical, immunofluorescent and chromogenic in-situ hybridization tests have been determined by the performing laboratory within [facility]???[facility] [place] ([facility], [facility], [facility], [facility], [facility], or [facility]) in a manner consistent with CLIA requirements. One or more of these tests have not been cleared or approved by the FDA. [facility] is regulated under CLIA as qualified to perform high-complexity testing. These tests are used for clinical purposes. They should not be regarded as investigational or for research. Positive and negative controls stain appropriately. No validation on specimen type or on patient population Inhibin Positive and negative controls stain appropriately. One or more of these tests have not been validated for the specimen type submitted or its clinical utility has not been established for this patient population. The test results should be interpreted with caution and in the context of the patient's clinical condition. Performed By: #### C JANES #### [facility] CLIA [id number] [address] [facility] [id number] [facility] CLIA [id number] FINAL DIAGNOSIS [facility] Comment on above: Order Comment: Speci men Type: SPECIMEN OBTAINED BY ASPIRATION Ordering Facility: [facility] Address: [address] [facility] [place] [id number] Result Comment: A - PANCREAS FINE NEEDLE ASPIRATION Negative for malignant cells. See comment. The following cell blocks were associated with this case: A1 Cell Block, Alcohol Fixed Performed By: #### C YTONON #### [facility] CLIA [id number] [facility] [address] [facility] CLIA [id number] [address] [place] [address] [place] [facility] Normal [facility] Comment on above: Order Comment: Speci men Type: SPECIMEN OBTAINED BY ASPIRATION Ordering Facility: [facility] Address: [address] Result Comment: Tech nical component, metal fabricating supervisor screening performed at [facility], [address] [place] [address] CLIA# [id number] Diagnostic interpretation performed at [facility], [address] [place] [address] CLIA# [id number] Structural Steel Ironworker: Quintin Sal M.D. Performed By: #### C YTONON #### [facility] CLIA [id number] [address] [place] [address] OF [facility] CLIA [id number] [address] [place] [address] STATES OF [facility] GROSS DESCRIPTION Normal [facility] Comment on above: Order Comment: Speci men Type: SPECIMEN OBTAINED BY ASPIRATION Ordering Facility: [facility] Address: [address] [place] [address] Result Comment: Rhea PANCHAL FINE NEEDLE ASPIRATION 30 cc cloudy red CytoLyt with material. ThinPrep and Cell Block prepared. Performed By: #### C YTONON #### [facility] CLIA [id number] [address] [place] [address] OF [facility] CLIA [id number] [address] [place] [address] [place] EGD - THERAPEUTIC, EUS, OR T UBE INTERVENTIONSon 02-19-2023 [facility] GLUCOSE, BLOOD (POC)on 02-19 Glucose [Mass/Vol] 198 mg/dL Abnormal 74 - 99 mg/dL [facility] Glucose [Mass/Vol] 175 mg/dL Abnormal 74 - 99 mg/dL [facility] NURSING PROGon 02-19-2023 NURSING PROG HNO ID: [id number] Author: Lakhwinder Payan RN Service: Nursing Author Type: Registered Nurse Type: Nursing Progress Note Filed: 02/19/2023 2:51 PM Note Text: PATIENT EDUCATION TOPIC: PROCEDURE / SURGERY: Post Procedure Teaching: EUS PATIENT NAME: Magy Castro PATIENT LOCATION: Room/bed info not found READINESS TO LEARN COGNITIVE ABILITY: Alert and oriented MOTIVATION TO LEARN: Eager FAMILY SUPPORT: Unable to assess - Family not present INSTRUCTION PROVIDED TO: Patient PATIENT LEARNS BEST BY: Written Instruction - Hand-outs Verbal Instruction FACTORS AFFECTING LEARNING: None PHYSICAL LIMITATIONS AFFECTING LEARNING: None LEARNING RESPONSE DIAGNOSIS: ADULT: EUS PATIENT/FAMILY RESPONSE: Verbalizes understanding of: POST-PROCEDURE INSTRUCTIONS-Correct actions to take to reduce post procedure complications METHOD OF INSTRUCTION: Written instruction - handouts Verbal instruction FOLLOW-UP PLAN: Complete - No need for follow-up INSTRUCTIONAL AIDS USED: NA SUPPLEMENTAL MATERIAL PROVIDED TO PATIENT: None REFERRAL (RECOMMENDATION): None Electronically Signed By: Lakhwinder Payan [facility] NURSING PROG HNO ID: [id number] Author: Ekta Banegas RN Service: Nursing Author Type: Registered Nurse Type: Nursing Progress Note Filed: 02/19/2023 1:48 PM Note Text: PATIENT EDUCATION TOPIC: PROCEDURE / SURGERY: Pre Procedure Teaching: Surgical Safety Principles PATIENT NAME: Magy Castro PATIENT LOCATION: Room/bed info not found READINESS TO LEARN COGNITIVE ABILITY: Alert and oriented MOTIVATION TO LEARN: Eager FAMILY SUPPORT: Unable to assess - Family not present INSTRUCTION PROVIDED TO: Patient PATIENT LEARNS BEST BY: Individual Instruction FACTORS AFFECTING LEARNING: None PHYSICAL LIMITATIONS AFFECTING LEARNING: None LEARNING RESPONSE DIAGNOSIS: ADULT: pancreatic cyst PATIENT/FAMILY RESPONSE: Verbalizes understanding of: PRE-PROCEDURE INSTRUCTIONS-Correct action to take to follow pre-procedure instructions METHOD OF INSTRUCTION: Individual instruction FOLLOW-UP PLAN: Complete - No need for follow-up INSTRUCTIONAL AIDS USED: NA SUPPLEMENTAL MATERIAL PROVIDED TO PATIENT: None REFERRAL (RECOMMENDATION): None Electronically Signed By: Ekta Banegas [facility] Upper EUSon 02-19-2023 [facility] Gastrointestinal Endoscopy Patient Name: Magy Castro Procedure Date: 02/19/2023 1:57 PM Date of : 1955 Admit Type: Outpatient Age: 67 Room: [address] [address] Gender: Female Note Status: Finalized Attending MD: Lior Linton MD Procedure: Upper EUS Indications: For evaluation of pancreatic cystic neoplasm, On routine follow-up for her cancer CT scan of the abdomen pelvis done 09/11/2022 described 1.5 x 1.0 cm cystic lesion in the pancreatic body without dilated pancreatic duct. MRCP 10/23/2022 showed 12 x 7 x 5 mm lobulated cystic mass in the body of the pancreas without mass lesion or pancreas duct dilation. Brother of pancreatic cancer age 51. Providers: Lior Linton MD, Bonnie Baird RN, Alejandra Gates RN (Assisting Nurse) Patient Profile: This is a 67 year old female. Refer to note in patient chart for documentation of history and physical. Referring Physician: Lior Linton MD (Referring MD) Medicines: Monitored Anesthesia Care Complications: No immediate complications. Procedure: Pre-Anesthesia Assessment: - Prior to the procedure, a History and Physical was performed, and patient medications and allergies were reviewed. The patient's tolerance of previous anesthesia was also reviewed. The risks and benefits of the procedure and the sedation options and risks were discussed with the patient. All questions were answered, and informed consent was obtained. Prior Anticoagulants: The patient has taken no anticoagulant or antiplatelet agents. ASA Grade Assessment: III - A patient with severe systemic disease. After reviewing the risks and benefits, the patient was deemed in satisfactory condition to undergo the procedure. After obtaining informed consent, the endoscope was passed under direct vision. Throughout the procedure, the patient's blood pressure, pulse, and oxygen saturations were monitored continuously. The Endoscope was introduced through the mouth, and advanced to the second part of duodenum. After obtaining informed consent, the endoscope was passed under direct vision. Throughout the procedure, the patient's blood pressure, pulse, and oxygen saturations were monitored continuously.The upper GI endoscopy was accomplished without difficulty. The patient tolerated the procedure well. Moderate Sedation: MAC anesthesia was administered by the anesthesia team. Total Procedure Duration: 0 hours 20 minutes 54 seconds Findings: ENDOSONOGRAPHIC FINDING: : A multicystic lesion suggestive of a cyst was identified in the pancreatic body. It does not communicate with the pancreatic duct. The lesion measured 16 mm by 10 mm in maximal cross-sectional diameter. There were many compartments thinly septated. The outer wall of the lesion was not seen. There was no associated mass. There was no internal debris within the fluid-filled cavity. Fine needle aspiration for cytology was performed. Color Doppler imaging was utilized prior to needle puncture to confirm a lack of significant vascular structures within the needle path. Two passes were made with the 22 gauge needle using a transgastric approach. A stylet was used. A preliminary cytologic examination was not performed. The cellularity of the specimen was adequate. Final cytology results are pending. There is a component of cystic lesion in this mass measured 6-7 mm and fluid aspirated for cytology. Honeycomb appearance in the center of this cystic mass. There was no sign of significant endosonographic abnormality in the main pancreatic duct. The pancreatic duct measured up to 1 mm in diameter. The pancreas was well visualized, no pathologic lymphadenopathy, no calcifications, the pancreatic duct was thin in caliber. There was no sign of significant endosonographic abnormality in the left lobe of the liver. Homogeneous parenchyma, no focal pathology, no pathologic lymphadenopathy and no masses were identified. There was no sign of significant endosonographic abnormality involving the portal vein, splenic vein or superior mesenteric vein. Impression: - A cystic lesion was seen in the pancreatic body. Tissue was obtained from this exam, and results are pending. However, the endosonographic appearance is suspicious for a serous cystadenoma. Fine needle aspiration performed. - There was no sign of significant pathology in the main pancreatic duct. - There was no evidence of significant pathology in the left lobe of the liver. - The portal vein, splenic vein and superior mesenteric vein were endosonographically normal. Recommendation: - Discharge patient to home (ambulatory). - Resume regular diet. - Continue present medications. - Await cytology results. - Perform MRCP in 1 year based on cytopathology. Procedure Code(s): --- Professional --- 92207, Esophagogastroduodenos copy, flexible, (more content not included)... Normal [facility] A1C HEMOGLOBINon 02-10-2023 HbA1c (Bld) [Mass fraction] 7.3 % [employer] Other Glucose - FINGER STICKon Glucose [Mass/Vol] 167 mg/dL [employer] Other HbA1c (Bld) [Mass fraction]o n 02-10-2023 A1C HEMOGLOBIN [employer] Daily Other VINCE[facility]ison 02-04-2023 VINCEN Telephone ([facility]) MAGY CASTRO ([id number]) 1955 F Date Time Provider Department 02/04/23 ORVILLE ZAMARRIPA (SAMARIA) [facility] During your visit today, we recorded the following information about you: Orville Zamarripa LPN 02/04/2023 11:44 AM Signed Scanned into patients chart Allergies As of Date: 02/04/2023 (No Known Allergies) Date Reviewed: 02/02/2023 Reviewed by: Christophe Shaffer APRN.CHEMIST PHYSICAL - Fully Assessed Reason for Visit: Received Outside Medical Records [[id number]] Cmt: Lab Results Prescriptions as of 02/04/2023 - FIASP FLEXTOUCH U-100 INSULIN 100 unit/mL (3 mL) pen - aspirin, enteric coated (ASPIRIN, ENTERIC COATED) 81 mg EC tablet Aspirin (Aspirin Low Dose) 81 mg Tablet,Delayed Release (Dr/Ec) Active 2 TAB PO Daily December 07, 2018 11:02am - cyanocobalamin (VITAMIN B-12) 1,000 mcg tab Cyanocobalamin (Vitamin B-12) (Vitamin B-12) 1,000 mcg Tablet Active 1000 MCG PO Daily January 06, 2018 9:27am - VITAMIN B COMPLEX ORAL Take by mouth q 24 HR. - INV VITAMIN D3 5000 UNITS CAPSULE (IRB 19-1548) Take 5,000 Units by mouth once daily. For Investigational Drug Use Only. PI: Blanca Swan, PhD. Take one capsule by mouth daily for 3 months prior to surgery and 3 months after surgery. - iv contrast (will be provided with radiology test) CT Chest ABD/PEL-Inject, intravenously, once for 1 dose.No IV access, insert saline lock prior to the beginning of sedation, infusion, injection of imaging exam. Discontinue saline lock post exam. If Pt. has a central line or IVAD, may access for administration according to line specific nursing protocol. Once exam is complete flush line and de-access according to line specific nursing protocol in the CT contrast administration guidelines link. - enteric contrast (will be provided with radiology test) For CT CHESTABD/PEL W IVCON Routine order Administer, As Directed One Time Only, via Oral, Rectal, both Oral and Rectal, Enteric Tube, Stoma or Indwelling Catheter, Enteric Contrast as designated per enteric contrast guidelines - iv contrast (will be provided with radiology test) CT Chest ABD/PEL-Inject, intravenously, once for 1 dose.No IV access, insert saline lock prior to the beginning of sedation, infusion, injection of imaging exam. Discontinue saline lock post exam. If Pt. has a central line or IVAD, may access for administration according to line specific nursing protocol. Once exam is complete flush line and de-access according to line specific nursing protocol in the CT contrast administration guidelines link. - enteric contrast (will be provided with radiology test) For CT CHESTABD/PEL W IVCON Routine order Administer, As Directed One Time Only, via Oral, Rectal, both Oral and Rectal, Enteric Tube, Stoma or Indwelling Catheter, Enteric Contrast as designated per enteric contrast guidelines - metFORMIN (GLUCOPHAGE) 1,000 mg tablet Take 1,000 mg by mouth twice daily with meals. - empagliflozin 25 mg tab Take 25 mg by mouth once daily. - liraglutide (VICTOZA) 0.6 mg/0.1 mL (18 mg/3 mL) pnij Inject 1.8 mg subcutaneously once daily. - insulin glargine (LANTUS) 100 unit/mL (3 mL) inpn Inject 40 Units subcutaneously daily at bedtime. - atorvastatin (LIPITOR) 10 mg tablet Take 10 mg by mouth once daily. Every other day per MD Problem List As Of Date 02/04/2023 Noted Resolved Type 2 diabetes mellitus without complication (*12/15/2015 Endometrial ca (HCC) [C54.1] 12/15/2015 Mixed hyperlipidemia [E78.2] 12/21/2015 Morbid obesity (HCC) [E66.01] 12/21/2015 Endometrial cancer (HCC) [C54.1] 12/27/2015 Pulmonary embolus (HCC) [I26.99] 08/07/2017 Encounter Status:Closed by ORVILLE ZAMARRIPA LPN on 02/04/23 [facility] HISTORY PHYSICALon HISTORY PHYSICAL HNO ID: [id number] Author: Christophe Shaffer APRN.CHEMIST PHYSICAL Service: ? Author Type: Nurse Practitioner Type: HANDP Filed: 02/04/2023 5:52 PM Note Text: PREANESTHESIA CONSULT CLINIC TELEHEALTH VISIT Patient has been identified by name and date of : Yes This is a virtual visit using [employer] video visit. It require patient-provider interaction for the medical decision making as documented below. I have communicated my name and active licensure. The patient's identity and physical location were verified at the time of this visit. The patient has been informed of the risk and benefits of and alternatives to treatment through a remote evaluation and consents to proceed with the evaluation remotely. Reason for contact: PACC visit Accompanied by: Self Scheduled Surgery: EGD with Dr. Lior Linton on 02/19/2023 Subjective CHIEF COMPLAINT: No chief complaint on file. HPI: This is a 67 year old female who presents for EGD seen for PACC. She states having a pancreatic cyst and her brother has a history of pancreatic cancer. Per epic note pancreatic cyst is 12 mm in size and likely neoplasm per MRI. She denies any pain. Denies any fever, chills, nausea, vomiting, SOB, dizziness, lightheadedness, palpitations, syncope, chest pain or abdominal pain. She has elected to proceed with the surgical procedure. ACTIVE PROBLEM LIST Type 2 Diabetes Mellitus Without Complication (Hcc) Endometrial Ca (Hcc) Mixed Hyperlipidemia Morbid Obesity (Hcc) Endometrial Cancer (Hcc) Pulmonary Embolus (Hcc) PAST MEDICAL HISTORY Diagnosis Date Diabetes (HCC) Mixed hyperlipidemia 12/21/2015 Morbid obesity (HCC) 12/21/2015 Periumbilical hernia containing loop of small bowel Pulmonary emboli (HCC) right lower lobe Pulmonary nodules bilateral subcentimeter PAST SURGICAL HISTORY Procedure Laterality Date APPENDECTOMY RSO? LAPAROSCOPY SURG CHOLECYSTECTOMY PAST SURGICAL HISTORY OF 11/30/15 DANDC, hysteroscopy TUBAL LIGATION HX FAMILY HISTORY Problem Relation Age of Onset Pancreatic Cancer Brother Stroke Paternal Grandmother other (Leukemia [Other]) Paternal Grandfather Crohn's Disease Son Colon Cancer No Family History Social History Tobacco Use Smoking status: Never Smokeless tobacco: Never Vaping Use Vaping Use: Never used Substance Use Topics Alcohol use: No Drug use: No ALLERGIES No Known Allergies MEDICATIONS: Current Outpatient Medications Medication Sig FIASP FLEXTOUCH U-100 INSULIN 100 unit/mL (3 mL) pen aspirin, enteric coated (ASPIRIN, ENTERIC COATED) 81 mg EC tablet Aspirin (Aspirin Low Dose) 81 mg Tablet,Delayed Release (Dr/Ec) Active 2 TAB PO Daily December 07, 2018 11:02am cyanocobalamin (VITAMIN B-12) 1,000 mcg tab Cyanocobalamin (Vitamin B-12) (Vitamin B-12) 1,000 mcg Tablet Active 1000 MCG PO Daily January 06, 2018 9:27am VITAMIN B COMPLEX ORAL Take by mouth q 24 HR. INV VITAMIN D3 5000 UNITS CAPSULE (IRB 19-1548) Take 5,000 Units by mouth once daily. For Investigational Drug Use Only. PI: Blanca Swan, PhD. Take one capsule by mouth daily for 3 months prior to surgery and 3 months after surgery. metFORMIN (GLUCOPHAGE) 1,000 mg tablet Take 1,000 mg by mouth twice daily with meals. empagliflozin 25 mg tab Take 25 mg by mouth once daily. liraglutide (VICTOZA) 0.6 mg/0.1 mL (18 mg/3 mL) pnij Inject 1.8 mg subcutaneously once daily. insulin glargine (LANTUS) 100 unit/mL (3 mL) inpn Inject 40 Units subcutaneously daily at bedtime. atorvastatin (LIPITOR) 10 mg tablet Take 10 mg by mouth once daily. Every other day per MD iv contrast (will be provided with radiology test) CT Chest ABD/PEL-Inject, intravenously, once for 1 dose.No IV access, insert saline lock prior to the beginning of sedation, infusion, injection of imaging exam. Discontinue saline lock post exam. If Pt. has a central line or IVAD, may access for administration according to line specific nursing protocol. Once exam is complete flush line and de-access according to line specific nursing protocol in the CT contrast administration guidelines link. enteric contrast (will be provided with radiology test) For CT CHESTABD/PEL W IVCON Routine order Administer, As Directed One Time Only, via Oral, Rectal, both Oral and Rectal, Enteric Tube, Stoma or Indwelling Catheter, Enteric Contrast as designated per enteric contrast guidelines iv contrast (will be provided with radiology test) CT Chest ABD/PEL-Inject, intravenously, once for 1 dose.No IV access, insert saline lock prior to the beginning of sedation, infusion, injection of imaging exam. Discontinue saline lock post exam. If Pt. has a central line or IVAD, may access for administration according to line specific nursing protocol. Once exam is complete flush line and de-access according to line specific nursing protocol in the CT contrast administration guidelines link. enteric contrast (will be (more content not included)... Normal [facility] CNPNon 01-22-2023 RAHEEM Telephone (PAT) MAGY CASTRO ([id number]) 1955 F Date Time Provider Department 01/22/23 LIOR LINTON During your visit today, we recorded the following information about you: Heidi Parson RN 01/22/2023 12:18 PM Signed MRI images available for review. Heidi Parson RN ----- Message ----- From: Heidi Parson RN Sent: 01/13/2023 10:46 AM EDT To: Heidi Parson RN Spoke with pt. She will obtain MRCP disc from [facility] and send to our office. Heidi Parson RN ----- Message ----- From: Lior Linton MD Sent: 01/12/2023 5:41 PM EDT To: MARCEL Love: Please let me know when the MRCP disc is loaded into [employer] for my review. Lior Linton MD 02/03/2023 7:25 AM Signed MRCP images were reviewed. The images were downloaded to [facility] and the MRI was done at [facility]. Agree with the findings of the report. Cystic lesion in the body of the pancreas measuring around 12 mm lobulated without obvious communication with the pancreatic duct. This could represent mucinous cystadenoma versus IPMN. EUS is scheduled 02/19/2023. MD Heidi Cortez RN 02/03/2023 1:20 PM Signed Attempted to call pt, no answer. Left detailed voice msg regarding msg below. Instructed to call back with any questions. Heidi Parson RN Allergies As of Date: 01/22/2023 (No Known Allergies) Date Reviewed: 01/07/2023 Reviewed by: Lior Linton MD - Fully Assessed Reason for Visit: Imaging available for review [Other] Prescriptions as of 02/03/2023 - FIASP FLEXTOUCH U-100 INSULIN 100 unit/mL (3 mL) pen - aspirin, enteric coated (ASPIRIN, ENTERIC COATED) 81 mg EC tablet Aspirin (Aspirin Low Dose) 81 mg Tablet,Delayed Release (Dr/Ec) Active 2 TAB PO Daily December 07, 2018 11:02am - cyanocobalamin (VITAMIN B-12) 1,000 mcg tab Cyanocobalamin (Vitamin B-12) (Vitamin B-12) 1,000 mcg Tablet Active 1000 MCG PO Daily January 06, 2018 9:27am - VITAMIN B COMPLEX ORAL Take by mouth q 24 HR. - INV VITAMIN D3 5000 UNITS CAPSULE (IRB [id number]) Take 5,000 Units by mouth once daily. For Investigational Drug Use Only. PI: Blanca Swan, PhD. Take one capsule by mouth daily for 3 months prior to surgery and 3 months after surgery. - iv contrast (will be provided with radiology test) CT Chest ABD/PEL-Inject, intravenously, once for 1 dose.No IV access, insert saline lock prior to the beginning of sedation, infusion, injection of imaging exam. Discontinue saline lock post exam. If Pt. has a central line or IVAD, may access for administration according to line specific nursing protocol. Once exam is complete flush line and de-access according to line specific nursing protocol in the CT contrast administration guidelines link. - enteric contrast (will be provided with radiology test) For CT CHESTABD/PEL W IVCON Routine order Administer, As Directed One Time Only, via Oral, Rectal, both Oral and Rectal, Enteric Tube, Stoma or Indwelling Catheter, Enteric Contrast as designated per enteric contrast guidelines - iv contrast (will be provided with radiology test) CT Chest ABD/PEL-Inject, intravenously, once for 1 dose.No IV access, insert saline lock prior to the beginning of sedation, infusion, injection of imaging exam. Discontinue saline lock post exam. If Pt. has a central line or IVAD, may access for administration according to line specific nursing protocol. Once exam is complete flush line and de-access according to line specific nursing protocol in the CT contrast administration guidelines link. - enteric contrast (will be provided with radiology test) For CT CHESTABD/PEL W IVCON Routine order Administer, As Directed One Time Only, via Oral, Rectal, both Oral and Rectal, Enteric Tube, Stoma or Indwelling Catheter, Enteric Contrast as designated per enteric contrast guidelines - metFORMIN (GLUCOPHAGE) 1,000 mg tablet Take 1,000 mg by mouth twice daily with meals. - empagliflozin 25 mg tab Take 25 mg by mouth once daily. - liraglutide (VICTOZA) 0.6 mg/0.1 mL (18 mg/3 mL) pnij Inject 1.8 mg subcutaneously once daily. - insulin glargine (LANTUS) 100 unit/mL (3 mL) inpn Inject 40 Units subcutaneously daily at bedtime. - atorvastatin (LIPITOR) 10 mg tablet Take 10 mg by mouth once daily. Every other day per MD Problem List As Of Date 01/22/2023 Noted Resolved Type 2 diabetes mellitus without complication (*12/15/2015 Endometrial ca (HCC) [C54.1] 12/15/2015 Mixed hyperlipidemia [E78.2] 12/21/2015 Morbid obesity (HCC) [E66.01] 12/21/2015 Endometrial cancer (HCC) [C54.1] 12/27/2015 Pulmonary embolus (HCC) [I26.99] 08/07/2017 Encounter Status:Closed by HEIDI PARSON on 02/03/23 [facility] CNOVon 01-07-2023 CNOV Office Visit ([facility] ) MAGY CASTRO ([id number]) 1955 F Date Time Provider Department 01/07/23 9:30 AM LIOR LINTON During your visit today, we recorded the following information about you: Pulse Blood pressure Weight 91/minute 156/86 120.2 kg Lior Linton MD 01/12/2023 5:41 PM Signed Consultation requested by Dr. Jn Larson for an opinion regarding pancreatic cyst. My final recommendations will be communicated back to the requesting physician by way of shared medical record or fax. REASON FOR VISIT: Pancreatic cyst HPI: Magy Castro is a 67 year old female who presents for evaluation of pancreatic cyst. She is new to my practice and this is her first visit with me. The patient had history of endometrial carcinoma stage II diagnosed 2016 and treated with surgery followed by chemo and radiation. On routine follow-up for her cancer CT scan of the abdomen pelvis done 09/11/2022 described 1.5 x 1.0 cm cystic lesion in the pancreatic body without dilated pancreatic duct. MRCP 10/23/2022 showed 12 x 7 x 5 mm lobulated cystic mass in the body of the pancreas without mass lesion or pancreas duct dilation. She denies any GI symptoms. No weight loss. Bowel movements is daily with occasional diarrhea related to food. No rectal bleeding or melena. She is diabetic and takes 40 units of Lantus at night. She takes aspirin. She does not smoke cigarettes or drink alcohol. 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 Previous work up includes: 09/11/2022 CTAP w/ IV/PO contrast: Pancreas: New/more conspicuous 1.5 x 1.0 cm cystic focus in the pancreatic body (3:33). Main pancreatic duct is nondilated. 1. New/more conspicuous 1.5 x 1.0 cm cystic focus in the pancreatic body. Differential diagnosis includes side branch intraductal papillary neoplasm (IPMN) and sequelae of previous pancreatitis. Consider further evaluation via interval follow-up, MRI or endoscopic ultrasound. 2. Mild abdominal lymphadenopathy, stable. 3. Several anterior abdominal hernias containing portions of nonobstructed small bowel, increased. 10/23/2022 MRI abdomen: Mild atrophy of the pancreas. 7 x 5 x 12 mm lobulated cystic mass in the body of the pancreas. There is no pancreatic duct dilatation or pancreatic duct communication there are no acute inflammatory changes. Primary differential considerations include a cystic pancreatic neoplasm versus pseudocyst a cystic pancreatic neoplasm is favored due to the lack of inflammatory changes in the pancreas the cyst is too small to accurately discriminate features of different types of cystic neoplasms. 2. Subcentimeter hepatic and renal cysts. 3. Nodule in the periphery of the left lower lung base. In the absence of prior documentation a CT scan of the chest is recommended. ALLERGIES No Known Allergies PAST MEDICAL HISTORY Diagnosis Date Diabetes (HCC) Mixed hyperlipidemia 12/21/2015 Morbid obesity (HCC) 12/21/2015 Periumbilical hernia containing loop of small bowel Pulmonary emboli (HCC) right lower lobe Pulmonary nodules bilateral subcentimeter PAST SURGICAL HISTORY Procedure Laterality Date APPENDECTOMY RSO? LAPAROSCOPY SURG CHOLECYSTECTOMY PAST SURGICAL HISTORY OF 11/30/15 DANDC, hysteroscopy TUBAL LIGATION HX FAMILY HISTORY Problem Relation Age of Onset Pancreatic Cancer Brother Stroke Paternal Grandmother other (Leukemia [Other]) Paternal Grandfather Crohn's Disease Son Colon Cancer No Family History Social History Tobacco Use Smoking status: Never Smokeless tobacco: Never Vaping Use Vaping Use: Never used Substance Use Topics Alcohol use: No Drug use: No Current Outpatient Medications Medication Sig aspirin, enteric coated (ASPIRIN, ENTERIC COATED) 81 mg EC tablet Aspirin (Aspirin Low Dose) 81 mg Tablet,Delayed Release (Dr/Ec) Active 2 TAB PO Daily December 07, 2018 11:02am cyanocobalamin (VITAMIN B-12) 1,000 mcg tab Cyanocobalamin (Vitamin B-12) (Vitamin B-12) 1,000 mcg Tablet Active 1000 MCG PO Daily January 06, 2018 9:27am VITAMIN B COMPLEX ORAL Take by mouth q 24 HR. INV VITAMIN D3 5000 UNITS CAPSULE (IRB 19-1548) Take 5,000 Units by mouth once daily. For Investigational Drug Use Only. PI: Blanca Swan, PhD. Take one capsule by mouth daily for 3 months prior to surgery and 3 months after surgery. iv contrast (will be provided with radiology test) CT Chest ABD/PEL-Inject, intravenously, once for 1 dose.No IV access, insert saline lock prior to the beginning of sedation, infusion, injection of imaging exam. Discontinue saline lock post exam. If Pt. has a central line or IVAD, may access for administration according to line specific nursing protocol. Once exam is complete flush line and de-access according to line specific nursing prot (more content not included)... Normal [facility] HISTORY PHYSICALon HISTORY PHYSICAL HNO ID: [id number] Author: Lior Linton MD Service: ? Author Type: Physician Type: HANDP Filed: 01/12/2023 5:41 PM Note Text: Consultation requested by Dr. Jn Larson for an opinion regarding pancreatic cyst. My final recommendations will be communicated back to the requesting physician by way of shared medical record or fax. REASON FOR VISIT: Pancreatic cyst HPI: Magy Castro is a 67 year old female who presents for evaluation of pancreatic cyst. She is new to my practice and this is her first visit with me. The patient had history of endometrial carcinoma stage II diagnosed 2016 and treated with surgery followed by chemo and radiation. On routine follow-up for her cancer CT scan of the abdomen pelvis done 09/11/2022 described 1.5 x 1.0 cm cystic lesion in the pancreatic body without dilated pancreatic duct. MRCP 10/23/2022 showed 12 x 7 x 5 mm lobulated cystic mass in the body of the pancreas without mass lesion or pancreas duct dilation. She denies any GI symptoms. No weight loss. Bowel movements is daily with occasional diarrhea related to food. No rectal bleeding or melena. She is diabetic and takes 40 units of Lantus at night. She takes aspirin. She does not smoke cigarettes or drink alcohol. 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 Previous work up includes: 09/11/2022 CTAP w/ IV/PO contrast: Pancreas: New/more conspicuous 1.5 x 1.0 cm cystic focus in the pancreatic body (3:33). Main pancreatic duct is nondilated. 1. New/more conspicuous 1.5 x 1.0 cm cystic focus in the pancreatic body. Differential diagnosis includes side branch intraductal papillary neoplasm (IPMN) and sequelae of previous pancreatitis. Consider further evaluation via interval follow-up, MRI or endoscopic ultrasound. 2. Mild abdominal lymphadenopathy, stable. 3. Several anterior abdominal hernias containing portions of nonobstructed small bowel, increased. 10/23/2022 MRI abdomen: Mild atrophy of the pancreas. 7 x 5 x 12 mm lobulated cystic mass in the body of the pancreas. There is no pancreatic duct dilatation or pancreatic duct communication there are no acute inflammatory changes. Primary differential considerations include a cystic pancreatic neoplasm versus pseudocyst a cystic pancreatic neoplasm is favored due to the lack of inflammatory changes in the pancreas the cyst is too small to accurately discriminate features of different types of cystic neoplasms. 2. Subcentimeter hepatic and renal cysts. 3. Nodule in the periphery of the left lower lung base. In the absence of prior documentation a CT scan of the chest is recommended. ALLERGIES No Known Allergies PAST MEDICAL HISTORY Diagnosis Date Diabetes (HCC) Mixed hyperlipidemia 12/21/2015 Morbid obesity (HCC) 12/21/2015 Periumbilical hernia containing loop of small bowel Pulmonary emboli (HCC) right lower lobe Pulmonary nodules bilateral subcentimeter PAST SURGICAL HISTORY Procedure Laterality Date APPENDECTOMY RSO? LAPAROSCOPY SURG CHOLECYSTECTOMY PAST SURGICAL HISTORY OF 11/30/15 DANDC, hysteroscopy TUBAL LIGATION HX FAMILY HISTORY Problem Relation Age of Onset Pancreatic Cancer Brother Stroke Paternal Grandmother other (Leukemia [Other]) Paternal Grandfather Crohn's Disease Son Colon Cancer No Family History Social History Tobacco Use Smoking status: Never Smokeless tobacco: Never Vaping Use Vaping Use: Never used Substance Use Topics Alcohol use: No Drug use: No Current Outpatient Medications Medication Sig aspirin, enteric coated (ASPIRIN, ENTERIC COATED) 81 mg EC tablet Aspirin (Aspirin Low Dose) 81 mg Tablet,Delayed Release (Dr/Ec) Active 2 TAB PO Daily December 07, 2018 11:02am cyanocobalamin (VITAMIN B-12) 1,000 mcg tab Cyanocobalamin (Vitamin B-12) (Vitamin B-12) 1,000 mcg Tablet Active 1000 MCG PO Daily January 06, 2018 9:27am VITAMIN B COMPLEX ORAL Take by mouth q 24 HR. INV VITAMIN D3 5000 UNITS CAPSULE (IRB 19-1548) Take 5,000 Units by mouth once daily. For Investigational Drug Use Only. PI: Blanca Swan, PhD. Take one capsule by mouth daily for 3 months prior to surgery and 3 months after surgery. iv contrast (will be provided with radiology test) CT Chest ABD/PEL-Inject, intravenously, once for 1 dose.No IV access, insert saline lock prior to the beginning of sedation, infusion, injection of imaging exam. Discontinue saline lock post exam. If Pt. has a central line or IVAD, may access for administration according to line specific nursing protocol. Once exam is complete flush line and de-access according to line specific nursing protocol in the CT contrast administration guidelines link. enteric contrast (will be provided with radiology test) For CT CHESTABD/PEL W IVCON Routine order Administer, As Directed One Time Only, via Oral, Rectal, both Oral and Rectal, Enteric Tub (more content not included)... Normal [facility] A1C HEMOGLOBINon 11-04-2022 HbA1c (Bld) [Mass fraction] 7.9 % [employer] Other Glucose - FINGER STICKon Glucose [Mass/Vol] 212 mg/dL [employer] Other HbA1c (Bld) [Mass fraction]o n 11-04-2022 A1C HEMOGLOBIN Nu[employer] Other CNPNon 10-30-2022 CNPN Telephone (GASTNO) MAGY CASTRO ([id number]) 1955 F Date Time Provider Department 10/30/22 LIOR LINTON During your visit today, we recorded the following information about you: Blanca Norton 10/30/2022 11:15 AM Signed Pt saw Dr. Rowland, at [facility] and was given Dr. Linton's name to schedule a ERCP? Dr. Rowland does not do ERCPs Pt stated that Dr. Rowland has sent over pt's medical records?! Pt can be reached at Thanks Heidi Parson, RN 10/30/2022 11:19 AM Signed Medardo is supposed to call pt today to schedule in biliary pancreas clinic on 11/19/2022. Heidi Parson, RN Romain Lily Pss 10/30/2022 11:34 AM Signed Spoke with patient and she is scheduled @ 9:[address] Linton for O/V. Thanks Medardo Allergies As of Date: 10/30/2022 (Not on File) Date Reviewed: 09/17/2022 Reviewed by: Юляи Odom APRN.[employer] - Fully Assessed Reason for Visit: Orders [681] Prescriptions as of 10/30/2022 - aspirin, enteric coated (ASPIRIN, ENTERIC COATED) 81 mg EC tablet Aspirin (Aspirin Low Dose) 81 mg Tablet,Delayed Release (Dr/Ec) Active 2 TAB PO Daily December 07, 2018 11:02am - cyanocobalamin (VITAMIN B-12) 1,000 mcg tab Cyanocobalamin (Vitamin B-12) (Vitamin B-12) 1,000 mcg Tablet Active 1000 MCG PO Daily January 06, 2018 9:27am - VITAMIN B COMPLEX ORAL Take by mouth q 24 HR. - INV VITAMIN D3 5000 UNITS CAPSULE (IRB 19-1548) Take 5,000 Units by mouth once daily. For Investigational Drug Use Only. PI: Blanca Swan, PhD. Take one capsule by mouth daily for 3 months prior to surgery and 3 months after surgery. - iv contrast (will be provided with radiology test) CT Chest ABD/PEL-Inject, intravenously, once for 1 dose.No IV access, insert saline lock prior to the beginning of sedation, infusion, injection of imaging exam. Discontinue saline lock post exam. If Pt. has a central line or IVAD, may access for administration according to line specific nursing protocol. Once exam is complete flush line and de-access according to line specific nursing protocol in the CT contrast administration guidelines link. - enteric contrast (will be provided with radiology test) For CT CHESTABD/PEL W IVCON Routine order Administer, As Directed One Time Only, via Oral, Rectal, both Oral and Rectal, Enteric Tube, Stoma or Indwelling Catheter, Enteric Contrast as designated per enteric contrast guidelines - iv contrast (will be provided with radiology test) CT Chest ABD/PEL-Inject, intravenously, once for 1 dose.No IV access, insert saline lock prior to the beginning of sedation, infusion, injection of imaging exam. Discontinue saline lock post exam. If Pt. has a central line or IVAD, may access for administration according to line specific nursing protocol. Once exam is complete flush line and de-access according to line specific nursing protocol in the CT contrast administration guidelines link. - enteric contrast (will be provided with radiology test) For CT CHESTABD/PEL W IVCON Routine order Administer, As Directed One Time Only, via Oral, Rectal, both Oral and Rectal, Enteric Tube, Stoma or Indwelling Catheter, Enteric Contrast as designated per enteric contrast guidelines - metFORMIN (GLUCOPHAGE) 1,000 mg tablet Take 1,000 mg by mouth twice daily with meals. - empagliflozin 25 mg tab Take 25 mg by mouth once daily. - liraglutide (VICTOZA) 0.6 mg/0.1 mL (18 mg/3 mL) pnij Inject 1.8 mg subcutaneously once daily. - insulin glargine (LANTUS) 100 unit/mL (3 mL) inpn Inject 40 Units subcutaneously daily at bedtime. - atorvastatin (LIPITOR) 10 mg tablet Take 10 mg by mouth once daily. Every other day per MD Problem List As Of Date 10/30/2022 Noted Resolved Type 2 diabetes mellitus without complication (*12/15/2015 Endometrial ca (HCC) [C54.1] 12/15/2015 Mixed hyperlipidemia [E78.2] 12/21/2015 Morbid obesity (HCC) [E66.01] 12/21/2015 Endometrial cancer (HCC) [C54.1] 12/27/2015 Pulmonary embolus (HCC) [I26.99] 08/07/2017 Encounter Status:Closed by ROMAIN VELA on 10/30/22 [facility] CNOVSPon 09-17-2022 CNOVSP Visit (SP) Office (GYNML) MAGY CASTRO ([id number]) 1955 F Date Time Provider Department 09/17/22 9:45 AM ЮЛИЯ ODOM During your visit today, we recorded the following information about you: Temperature Pulse Respiration Blood pressure 97.6 degrees 81/minute 14/minute 143/55 Weight 120.2 kg Юлия Odom APRN.[facility] 09/17/2022 12:59 PM Signed DATE: 09/17/2022 PROBLEM: routine Follow up DIAGNOSIS: stage 1a FIGO 2 endometrial cancer. HPI: is a 67 yo female w PMH of DM II, HLD, PE, uterine cancer. Prior treatment/date: 1. 12/27/2015: Diagnostic laparoscopy, extensive lysis of adhesion (2 hrs), total hysterectomy and bilateral salpingo-oophorectomy and cystoscopy Moderately-differentia kedar endometrial adenocarcinoma, endometrioid type, FIGO grade 2. Tumor Size: 4.5 cm, Myometrial Invasion: 2 mm of 17 mm, LVSI present, cervix not involved HNPCC screening negative ER/VT: negative 2. Chemotherapy with Carboplatin and taxol started 02/05/2016- 07/08/2016 s/p 5 cycles 3. Vaginal brachytherapy completed in 04/28/2016 Most recent imaging: CT CAP 03/26/2021 IMPRESSION: Multiple stable lymph nodes measuring up to 8 mm in the left lower lobe which appear unchanged compared with most remote available CT of 12/26/2015. Although these are presumably benign, given patient's history of neoplasm continued attention on follow-up is recommended. No intrathoracic lymphadenopathy. Mild abdominopelvic lymphadenopathy is unchanged since at least 08/03/2017. No new metastatic disease in the abdomen or pelvis. Hepatic steatosis. CT CAP 09/16/2021 IMPRESSION: 1. Stable CT of the abdomen and pelvis. No findings to suggest new metastatic disease in the abdomen or pelvis. 2. Stable appearance of abdominal and pelvic lymphadenopathy. 3. Hepatic steatosis. 1. Stable appearance of multiple bilateral pulmonary nodules. No new or enlarging nodules are visualized. 2. No evidence of bulky intrathoracic lymphadenopathy IMPRESSION: 1. New/more conspicuous 1.5 x 1.0 cm cystic focus in the pancreatic body. Differential diagnosis includes side branch intraductal papillary neoplasm (IPMN) and sequelae of previous pancreatitis. Consider further evaluation via interval follow-up, MRI or endoscopic ultrasound. 2. Mild abdominal lymphadenopathy, stable. 3. Several anterior abdominal hernias containing portions of nonobstructed small bowel, increased. CT CAP 09/11/2022 IMPRESSION: 1. Indeterminate 5 mm right lower lobe nodular opacity, increased since 09/16/21. Consider continued interval follow up. 2. Other subcentimeter nodular opacities are stable. IMPRESSION: 1. New/more conspicuous 1.5 x 1.0 cm cystic focus in the pancreatic body. Differential diagnosis includes side branch intraductal papillary neoplasm (IPMN) and sequelae of previous pancreatitis. Consider further evaluation via interval follow-up, MRI or endoscopic ultrasound. 2. Mild abdominal lymphadenopathy, stable. 3. Several anterior abdominal hernias containing portions of nonobstructed small bowel, increased. SUBJECTIVE: Magy reports that she feels well. No vaginal bleeding or discharge. No shortness of breath, cough, or chest pain. No abdominal pain, nausea, vomiting, diarrhea, or constipation. No dysuria, gross hematuria, urinary frequency, urinary urgency, or incontinence. OBJECTIVE: BP 143/55 Pulse 81 Temp 36.4 ?C (97.6 ?F) Resp 14 Wt 120.2 kg (265 lb) BMI 45.46 kg/m? GEN: Comfortable HEENT: normocephalic NECK: no adenopathy CARD: RRR PULM: Clear bilat ABD: Soft, nontender, not distended GROIN: No inguinal adenopathy PELVIC: The external genitalia are normal. vagina normal on speculum exam, Vaginal rust without lesion. Bimanual negative. EXT: LE edema-chronic ASSESSMENT: 67 yo history stage T1a FIGO 2 endometrial cancer, +LVI, MMR nl Limited staging 12/2015 ([facility]) HDRB c 04/2016 Chemo x 5 c 06/2016 PLAN: - doing well, exam normal - reviewed CT CAP showing 1.5 x 1.0 cm cystic focus in the pancreatic body. Will plan for GI referral-orders placed. CT chest showing sub centimeter pulmonology nodules most stable, RLL 5mm (previously 3mm 09/2021), will continue to monitor with repeat scans in 1 year. - health maintenance up to date-mammogram completed at [facility] - continue follow up with PCP - RTC in 12 months, sooner prn for issues/concerns. Юлия Odom, WALTER.CHEMIST PHYSICAL Medical Decision Making: Problems: Low: Stable chronic illness Data: Unique test result(s) reviewed: 1 Risk: Low: Low risk from testing/treatment Medical Decision Making Level: 3 - Low Referring Provider: ЮЛИЯ ODOM [[id number]] Allergies As of Date: 09/17/2022 (Not on File) Date Reviewed: 09/17/2022 Reviewed by: Юлия Odom APRN.[employer] - Fully Assessed Reason for Vi (more content not included)... Normal [facility] CREATININE Don 09-11-2022 Creatinine [Mass/Vol] 0.59 mg/dL Normal 0.58-0.96 [facility] Comment on above: Order Comment: Speci men Type: BLOOD SPECIMENOrdering Facility: [facility] Address: [address] [place] [address] Performed By: #### C RET1 ####[facility] LABCLIA [id number] [place] [address] ESTIMATED GLOMERULAR FILTRATION RATE 98 mL/min/1.73m??? Normal >=60 [facility] Comment on above: Order Comment: Speci men Type: BLOOD SPECIMENOrdering Facility: [facility] Address: [address] [place] [address] Result Comment: Zoila mated Glomerular Filtration Rate (eGFR) is calculated using the 2020 CKD-EPI creatinine equation. This equation utilizes serum creatinine, sex, and age as parameters. The creatinine assay has traceable calibration to isotope dilution-mass spectrometry. Refer to KDIGO guidelines for clinical interpretation. In patients with unstable renal function, e.g. those with acute kidney injury, the eGFR may not accurately reflect actual GFR. Performed By: #### C RET1 ####[facility] LABCLIA [id number] [place] [address] CT ABD/PEL W IVCONon 022 CT ABD/PEL W IVCON * * *Final Report* * * DATE OF EXAM: Sep 11 2022 10:33AM [facility] 0530 - CT ABD/PEL W IVCON / PROCEDURE REASON: Malignant neoplasm of uterus, unspecified site (HCC) * * * * Physician Interpretation * * * * RESULT: EXAMINATION: CT ABDOMEN AND PELVIS WITH IV CONTRAST CLINICAL HISTORY: Endometrial cancer follow-up TECHNIQUE: CT of the abdomen and pelvis was performed using standard technique, scanning from just above the dome of the diaphragm to the symphysis pubis. MQ: CTAP_3 Contrast: IV: 150 ml of Omnipaque 300 Oral: 450 ml of 50ML Omnipaque [address] Radiation dose: Integrated Dose-length product (DLP) for this visit = 1779 mGy*cm. CT Dose Reduction Employed: Automated exposure control (AEC) COMPARISON: 09/16/21 RESULT: Liver: 1 cm right hepatic cyst (3:12), stable. No new hepatic abnormalities. Biliary: No bile duct dilation. Gallbladder is absent. Spleen: No mass. No splenomegaly. Pancreas: New/more conspicuous 1.5 x 1.0 cm cystic focus in the pancreatic body (3:33). Main pancreatic duct is nondilated. Adrenals: No mass. Kidneys: No mass, calculus or hydronephrosis. GI tract: No dilation or wall thickening. Postoperative changes of the small bowel. Lymph nodes: Mild abdominal lymphadenopathy, stable. For example (short axis measurement): * 1.3 cm periportal (3:38), previously 1.3 cm * 1.1 cm left para-aortic (3:75), previously 1.3 cm * 1.1 cm left common iliac (3:84), previously 1.2 cm * 1.1 cm right common iliac (3:95), previously 1.3 cm Mesentery/Peritoneum: No ascites or mass. Retroperitoneum: No mass. Vasculature: - Abdominal aorta and iliac arteries: No aneurysm. - Celiac and SMA: Patent without stenosis. - Portal venous system (SMV, splenic vein, portal vein and branches): Patent. - Hepatic veins: Patent. Pelvis: Urinary bladder and portions of the pelvis are obscured by streak artifact from the right hip arthroplasty. Visualized pelvis demonstrates no mass, ascites or fluid collection. Urinary bladder is decompressed. Bones/Soft Tissues: Right hip arthroplasty. Anterior abdominal hernias are noted containing portions of nonobstructed small bowel, increased. No new osseous abnormalities. Lower thorax: A chest CT performed will be reported separately. Ginning Operator (topogram) images: No additional findings. IMPRESSION: 1. New/more conspicuous 1.5 x 1.0 cm cystic focus in the pancreatic body. Differential diagnosis includes side branch intraductal papillary neoplasm (IPMN) and sequelae of previous pancreatitis. Consider further evaluation via interval follow-up, MRI or endoscopic ultrasound. 2. Mild abdominal lymphadenopathy, stable. 3. Several anterior abdominal hernias containing portions of nonobstructed small bowel, increased. Transcribe Date/Time: Sep 11 2022 1:20P Dictated by: MELONIE RAMIREZ MD This examination was interpreted and the report reviewed and electronically signed by: MELONIE RAMIREZ MD on Sep 11 2022 2:03PM EST Thank you for allowing us to participate in the care of your patient. Should there be any questions regarding this interpretation, please call [phone]. If you are unable to reach us at the number above, please feel free to contact [facility] eRadiology at [phone]. [id number] Normal [facility] CT CHEST W IVCONon 2 CT CHEST W IVCON * * *Final Report* * * DATE OF EXAM: Sep 11 2022 10:33AM [facility] 0539 - CT CHEST W IVCON / PROCEDURE REASON: Malignant neoplasm of uterus, unspecified site (HCC) * * * * Physician Interpretation * * * * RESULT: EXAMINATION: CHEST CT WITH CONTRAST CLINICAL HISTORY: Endometrial cancer follow-up Technique: Spiral CT acquisition of the chest from the thoracic inlet to the upper abdomen following IV contrast. MQ: CTCW_6 Contrast: 150 mL Omnipaque [address] Radiation dose: Integrated Dose-length product (DLP) for this visit = 1779 mGy*cm CT Dose Reduction Employed: Automated exposure control (AEC) Comparison: 09/16/21 RESULT: Limitations: None. Lines, tubes, and devices: None. Lung parenchyma and airways: 5 mm right lower lobe nodular opacity (4:133), previously 3 mm, increased. Subcentimeter nodular opacities measuring up to 7-8 mm, stable. For example: Right upper lobe (4:30, 55) Right middle lobe (4:125) Right lower lobe (4:113, 129) Left upper lobe (4: 37, 55, 99) Left lower lobe (4:138) The central airways are patent. Pleural space: No pleural effusion. No pleural thickening. Lower neck, lymph nodes, and mediastinum: The imaged thyroid gland is normal. No lymphadenopathy in the supraclavicular, axillary, mediastinal, or hilar regions. Heart, pericardium, and thoracic vessels: The thoracic aorta and main pulmonary artery are normal in caliber. The cardiac chambers are normal in size. Atherosclerotic coronary artery calcifications are noted. No pericardial effusion or thickening. Bones and soft tissues: No new osseous abnormalities. Upper abdomen: Please refer to the abdomen CT scan report for the abdomen findings. Ginning Operator (topogram) images: No additional findings. IMPRESSION: 1. Indeterminate 5 mm right lower lobe nodular opacity, increased since 09/16/21. Consider continued interval follow up. 2. Other subcentimeter nodular opacities are stable. Transcribe Date/Time: Sep 11 2022 12:59P Dictated by: MELONIE RAMIREZ MD This examination was interpreted and the report reviewed and electronically signed by: MELONIE RAMIREZ MD on Sep 11 2022 2:01PM EST Thank you for allowing us to participate in the care of your patient. Should there be any questions regarding this interpretation, please call [phone]. If you are unable to reach us at the number above, please feel free to contact [facility]Radiology at [phone]. [id number] [facility] RAHEEM Telephone (PETSAN) MAGY CASTRO ([id number]) 1955 F Date Time Provider Department 08/13/22 LAVINIA GODFREY During your visit today, we recorded the following information about you: Lavinia Godfrey RN 08/13/2022 10:57 AM Signed Please sign pending Cre order for Magy Castro for upcoming CT with contrast on 09/11/22. Thank you. Lavinia Godfrey RN Allergies As of Date: 08/13/2022 (No Known Allergies) Date Reviewed: 09/19/2021 Reviewed by: Юлия Odom APRN.[employer] - Fully Assessed Reason for Visit: Orders [681] Primary Visit Diagnosis:Malignant neoplasm of body of uterus, unspecified site (HCC) [C54.9] Order(s):CREATININE BLD [SQCRET] Order #: [id number] FUTURE Prescriptions as of 08/15/2022 - aspirin, enteric coated (ASPIRIN, ENTERIC COATED) 81 mg EC tablet Aspirin (Aspirin Low Dose) 81 mg Tablet,Delayed Release (Dr/Ec) Active 2 TAB PO Daily December 07, 2018 11:02am - cyanocobalamin (VITAMIN B-12) 1,000 mcg tab Cyanocobalamin (Vitamin B-12) (Vitamin B-12) 1,000 mcg Tablet Active 1000 MCG PO Daily January 06, 2018 9:27am - VITAMIN B COMPLEX ORAL Take by mouth q 24 HR. - INV VITAMIN D3 5000 UNITS CAPSULE (IRB [id number]) Take 5,000 Units by mouth once daily. For Investigational Drug Use Only. PI: Blanca Swan, PhD. Take one capsule by mouth daily for 3 months prior to surgery and 3 months after surgery. - iv contrast (will be provided with radiology test) CT Chest ABD/PEL-Inject, intravenously, once for 1 dose.No IV access, insert saline lock prior to the beginning of sedation, infusion, injection of imaging exam. Discontinue saline lock post exam. If Pt. has a central line or IVAD, may access for administration according to line specific nursing protocol. Once exam is complete flush line and de-access according to line specific nursing protocol in the CT contrast administration guidelines link. - enteric contrast (will be provided with radiology test) For CT CHESTABD/PEL W IVCON Routine order Administer, As Directed One Time Only, via Oral, Rectal, both Oral and Rectal, Enteric Tube, Stoma or Indwelling Catheter, Enteric Contrast as designated per enteric contrast guidelines - XARELTO 20 mg tablet - iv contrast (will be provided with radiology test) CT Chest ABD/PEL-Inject, intravenously, once for 1 dose.No IV access, insert saline lock prior to the beginning of sedation, infusion, injection of imaging exam. Discontinue saline lock post exam. If Pt. has a central line or IVAD, may access for administration according to line specific nursing protocol. Once exam is complete flush line and de-access according to line specific nursing protocol in the CT contrast administration guidelines link. - enteric contrast (will be provided with radiology test) For CT CHESTABD/PEL W IVCON Routine order Administer, As Directed One Time Only, via Oral, Rectal, both Oral and Rectal, Enteric Tube, Stoma or Indwelling Catheter, Enteric Contrast as designated per enteric contrast guidelines - metFORMIN (GLUCOPHAGE) 1,000 mg tablet Take 1,000 mg by mouth twice daily with meals. - glimepiride (AMARYL) 4 mg tablet Take 4 mg by mouth twice daily with meals. - empagliflozin 25 mg tab Take 25 mg by mouth once daily. - liraglutide (VICTOZA) 0.6 mg/0.1 mL (18 mg/3 mL) pnij Inject 1.8 mg subcutaneously once daily. - insulin glargine (LANTUS) 100 unit/mL (3 mL) inpn Inject 40 Units subcutaneously daily at bedtime. - atorvastatin (LIPITOR) 10 mg tablet Take 10 mg by mouth once daily. Every other day per MD Problem List As Of Date 08/13/2022 Noted Resolved Type 2 diabetes mellitus without complication (*12/15/2015 Endometrial ca (HCC) [C54.1] 12/15/2015 Mixed hyperlipidemia [E78.2] 12/21/2015 Morbid obesity (HCC) [E66.01] 12/21/2015 Endometrial cancer (HCC) [C54.1] 12/27/2015 Pulmonary embolus (HCC) [I26.99] 08/07/2017 Encounter Status:Closed by ЮЛИЯ ODOM on 08/15/22 [facility] A1C HEMOGLOBINon 07-21-2022 HbA1c (Bld) [Mass fraction] 8.2 % [employer] Other Glucose - FINGER STICKon Glucose [Mass/Vol] 243 mg/dL [employer] Other HbA1c (Bld) [Mass fraction]o n 07-21-2022 A1C HEMOGLOBIN NuLabel Other A1C HEMOGLOBINon 04-09-2022 HbA1c (Bld) [Mass fraction] 7.1 % [employer] Other Glucose - FINGER STICKon Glucose [Mass/Vol] 253 mg/dL [employer] Other HbA1c (Bld) [Mass fraction]o n 04-09-2022 A1C HEMOGLOBIN NuLabel Other A1C HEMOGLOBINon 12-18-2021 HbA1c (Bld) [Mass fraction] 7 % [employer] Other Glucose - FINGER STICKon Glucose [Mass/Vol] 200 mg/dL [employer] Other HbA1c (Bld) [Mass fraction]o n 12-18-2021 A1C HEMOGLOBIN NuLabel Other A1C HEMOGLOBINon 09-10-2021 HbA1c (Bld) [Mass fraction] 7.2 % [employer] Other Glucose - FINGER STICKon Glucose [Mass/Vol] 247 mg/dL [employer] Other HbA1c (Bld) [Mass fraction]o n 09-10-2021 A1C HEMOGLOBIN NuLabel Other Vital Signs Date Time Vital Sign Value Performing Clinician Facility 09-09-2023 09:45-0500 Body height 161.29 cm Tondra Mapus Other [employer] Other 09-09-2023 09:45-0500 Body mass index (BMI) [Ratio] 45.97 kg/m2 Tondra Mapus Other [employer] Other 09-09-2023 09:45-0500 Body weight 119.61 kg Tondra Mapus Other [employer] Other 09-09-2023 09:45-0500 Diastolic blood pressure 75 mm[Hg] Tondra Mapus Other [facility] Other 09-09-2023 09:45-0500 Respiratory rate 18 /min Tondra Tejasus Other [employer] Other 09-09-2023 09:45-0500 SaO2% (BldA) [Mass fraction] 97 % Tondra Mapus Other [employer] [facility] [employer] Other 09-09-2023 09:45-0500 Systolic blood pressure 116 mm[Hg] Tondra Mapus Other [facility] [employer] Other 06-29-2023 09:36-0400 Body height 160.02 cm DO Sherman Stephans Work Phone: [facility] 06-29-2023 09:36-0400 Body mass index (BMI) [Ratio] 46 kg/m2 DO Sherman Stephans Work Phone: [facility] 06-29-2023 09:36-0400 Body weight 117.93 kg DO Sherman Stephans Work Phone: [facility] 06-29-2023 09:30-0400 Body temperature 97.6 [degF] DO Sherman Stephans Work Phone: [facility] 06-29-2023 09:30-0400 Diastolic blood pressure 70 mm[Hg] DO Sherman Kuns Work Phone: [facility] 06-29-2023 09:30-0400 Heart rate 92 /min DO Sherman Kuns Work Phone: [facility] 06-29-2023 09:30-0400 Respiratory rate 20 /min DO Sherman Kuns Work Phone: [facility] 06-29-2023 09:30-0400 Systolic blood pressure 145 mm[Hg] DO Sherman Kuns Work Phone: [facility] 04-30-2023 09:07-0400 Body height 162.56 cm DO Sherman Kuns Work Phone: [facility] 04-30-2023 09:07-0400 Body mass index (BMI) [Ratio] 44.6 kg/m2 DO Sherman Kuns Work Phone: [facility] 04-30-2023 09:07-0400 Body weight 117.93 kg DO Sherman Kuns Work Phone: [facility] 04-30-2023 08:58-0400 Body temperature 97.7 [degF] DO Sherman Kuns Work Phone: [facility] 04-30-2023 08:58-0400 Diastolic blood pressure 89 mm[Hg] DO Sherman Kuns Work Phone: [facility] 04-30-2023 08:58-0400 Heart rate 88 /min DO Sherman Kuns Work Phone: [facility] 04-30-2023 08:58-0400 Respiratory rate 18 /min DO Sherman Kuns Work Phone: [facility] 04-30-2023 08:58-0400 Systolic blood pressure 113 mm[Hg] DO Sherman Kuns Work Phone: [facility] 03-30-2023 09:02-0400 Body temperature 97.8 [degF] DO Sherman Kuns Work Phone: [facility] 03-30-2023 09:02-0400 Diastolic blood pressure 79 mm[Hg] DO Sherman Kuns Work Phone: [facility] 03-30-2023 09:02-0400 Heart rate 97 /min DO Sherman Kuns Work Phone: [facility] 03-30-2023 09:02-0400 Respiratory rate 20 /min DO Sherman Kuns Work Phone: [facility] 03-30-2023 09:02-0400 Systolic blood pressure 138 mm[Hg] DO Sherman Larson Work Phone: [facility] 03-25-2023 14:58-0400 Body height 162.56 cm DO Sherman Larson Work Phone: [facility] 03-25-2023 14:58-0400 Body mass index (BMI) [Ratio] 44.6 kg/m2 DO Sherman Larson Work Phone: [facility] 03-25-2023 14:58-0400 Body weight 117.93 kg DO Sherman Larson Work Phone: [facility] 02-19-2023 15:15-0400 Diastolic blood pressure 58 mm[Hg] Lior Linton MD Work Phone: [facility] 02-19-2023 15:15-0400 Heart rate 85 /min Lior Linton MD Work Phone: [facility] 02-19-2023 15:15-0400 Respiratory rate 16 /min Lior Linton MD Work Phone: [facility] 02-19-2023 15:15-0400 SaO2% (BldA) [Mass fraction] 99 % Lior Linton MD Work Phone: [facility] 02-19-2023 15:15-0400 Systolic blood pressure 132 mm[Hg] Lior Linton MD Work Phone: [facility] 02-19-2023 14:44-0400 Body temperature 96.8 [degF] Lior Linton MD Work Phone: [facility] 02-10-2023 10:15-0400 Body height 161.29 cm Rosanne Dumont Other [employer] Other 02-10-2023 10:15-0400 Body mass index (BMI) [Ratio] 46.2 kg/m2 Rosanne Dumont Other [employer] Other 02-10-2023 10:15-0400 Body weight 120.2 kg Tondra Mapus Other [employer] Other 02-10-2023 10:15-0400 Diastolic blood pressure 77 mm[Hg] Tondra Mapus Other [employer] Other 02-10-2023 10:15-0400 Respiratory rate 18 /min Tondra Mapus Other [employer] Other 02-10-2023 10:15-0400 SaO2% (BldA) [Mass fraction] 98 % Tondra Mapus Other [employer] Other 02-10-2023 10:15-0400 Systolic blood pressure 138 mm[Hg] Tondra Mapus Other [employer] Other 02-02-2023 08:26-0400 Body height 161.3 cm [facility] 02-02-2023 08:26-0400 Body weight 117.94 kg [facility] 01-07-2023 09:51-0400 Body weight 120.2 kg Lior Linton MD Work Phone: [facility] 01-07-2023 09:51-0400 Diastolic blood pressure 86 mm[Hg] Lior Linton MD Work Phone: [facility] 01-07-2023 09:51-0400 Heart rate 91 /min Lior Linton MD Work Phone: [facility] 01-07-2023 09:51-0400 Systolic blood pressure 156 mm[Hg] Lior Linton MD Work Phone: [facility] 11-04-2022 10:15-0500 Body height 161.29 cm Tondra Mapus Other [employer] Other 11-04-2022 10:15-0500 Body mass index (BMI) [Ratio] 45.84 kg/m2 Tondra Mapus Other [employer] Other 11-04-2022 10:15-0500 Body weight 119.25 kg Tondra Mapus Other [employer] Other 11-04-2022 10:15-0500 Diastolic blood pressure 63 mm[Hg] Tondra Mapus Other [employer] Other 11-04-2022 10:15-0500 Respiratory rate 18 /min Tondra Mapus Other [employer] Other 11-04-2022 10:15-0500 SaO2% (BldA) [Mass fraction] 97 % Tondra Mapus Other [employer] Other 11-04-2022 10:15-0500 Systolic blood pressure 138 mm[Hg] Tondra Mapus Other [employer] Other 09-24-2022 09:45-0500 Body height 161.29 cm Sherman Larson Other [employer] Other 09-24-2022 09:45-0500 Body mass index (BMI) [Ratio] 45.57 kg/m2 Sherman Larson Other [employer] Other 09-24-2022 09:45-0500 Body weight 118.57 kg Sherman Larson Other [employer] Other 09-24-2022 09:45-0500 Diastolic blood pressure 62 mm[Hg] Sherman Larson Other [employer] Other 09-24-2022 09:45-0500 Respiratory rate 16 /min Sherman Rothmanfaby Other [employer] Other 09-24-2022 09:45-0500 SaO2% (BldA) [Mass fraction] 96 % Sherman Rothmanfaby Other [employer] Other 09-24-2022 09:45-0500 Systolic blood pressure 124 mm[Hg] Sherman Larson Other [employer] Other 09-17-2022 09:43-0500 Body temperature 97.59 [degF] Юлия Odom APRN.[employer] Work Phone: [facility] 09-17-2022 09:43-0500 Body weight 120.2 kg Юлия Odom TATTOO AND B[employer] ARTIST.[employer] Work Phone: [facility] 09-17-2022 09:43-0500 Diastolic blood pressure 55 mm[Hg] Юлия Odom [employer] ARTIST.[employer] Work Phone: [facility] 09-17-2022 09:43-0500 Heart rate 81 /min Юлия Hatfieldianofaby [employer] ARTIST.[employer] Work Phone: [facility] 09-17-2022 09:43-0500 Respiratory rate 14 /min Юлия Odom [employer] ARTIST.[employer] Work Phone: [facility] 09-17-2022 09:43-0500 Systolic blood pressure 143 mm[Hg] Юлия Malloygalianofaby [employer] ARTIST.[employer] Work Phone: [facility] 07-21-2022 10:15-0400 Body height 161.29 cm Rosanne Dumont Other [employer] Other 07-21-2022 10:15-0400 Body mass index (BMI) [Ratio] 46.03 kg/m2 Tondra Mapus Other [employer] Other 07-21-2022 10:15-0400 Body weight 119.75 kg Tondra Mapus Other [employer] Other 07-21-2022 10:15-0400 Diastolic blood pressure 60 mm[Hg] Tondra Mapus Other [employer] Other 07-21-2022 10:15-0400 Respiratory rate 16 /min Tondra Mapus Other [employer] Other 07-21-2022 10:15-0400 SaO2% (BldA) [Mass fraction] 96 % Tondra Mapus Other [employer] Other 07-21-2022 10:15-0400 Systolic blood pressure 141 mm[Hg] Tondra Mapus Other [employer] Other 04-09-2022 10:15-0400 Body height 161.29 cm Tondra Mapus Other [employer] Other 04-09-2022 10:15-0400 Body mass index (BMI) [Ratio] 47.42 kg/m2 Tondra Mapus Other [employer] Other 04-09-2022 10:15-0400 Body weight 123.38 kg Tondra Mapus Other [employer] Other 04-09-2022 10:15-0400 Diastolic blood pressure 65 mm[Hg] Tondra Mapus Other [employer] Other 04-09-2022 10:15-0400 Respiratory rate 16 /min Tondra Mapus Other [employer] Other 04-09-2022 10:15-0400 SaO2% (BldA) [Mass fraction] 97 % Tondra Mapus Other [employer] Other 04-09-2022 10:15-0400 Systolic blood pressure 132 mm[Hg] Tondra Mapus Other [employer] Other 12-18-2021 10:45-0500 Body height 161.29 cm Tondra Mapus Other [employer] Other 12-18-2021 10:45-0500 Body mass index (BMI) [Ratio] 47.6 kg/m2 Tondra Mapus Other [employer] Other 12-18-2021 10:45-0500 Body weight 123.83 kg Tondra Mapus Other [employer] Other 12-18-2021 10:45-0500 Diastolic blood pressure 74 mm[Hg] Tondra Mapus Other [employer] Other 12-18-2021 10:45-0500 Respiratory rate 16 /min Tondra Mapus Other [employer] Other 12-18-2021 10:45-0500 SaO2% (BldA) [Mass fraction] 97 % Tondra Mapus Other [employer] Other 03-09-2022 10:45-0500 Systolic blood pressure 120 mm[Hg] Tondra Mapus Other [employer] Other 09-23-2021 09:30-0500 Body height 161.29 cm Sherman Rothmanfaby Other [employer] Other 09-23-2021 09:30-0500 Body mass index (BMI) [Ratio] 47.42 kg/m2 Sherman Larson Other [employer] Other 09-23-2021 09:30-0500 Body weight 123.38 kg Sherman Larson Other [employer] Other 09-23-2021 09:30-0500 Diastolic blood pressure 60 mm[Hg] Sherman Larson Other [employer] Other 09-23-2021 09:30-0500 Respiratory rate 16 /min Sherman Rothmanfaby Other [employer] Other 09-23-2021 09:30-0500 SaO2% (BldA) [Mass fraction] 98 % Shermanleonor Larson Other [employer] Other 09-23-2021 09:30-0500 Systolic blood pressure 126 mm[Hg] Sherman Larson Other [employer] Other 09-10-2021 11:45-0500 Body height 161.29 cm Tondra Mapus Other [employer] Other 09-10-2021 11:45-0500 Body mass index (BMI) [Ratio] 47.94 kg/m2 Tondra Mapus Other [employer] Other 09-10-2021 11:45-0500 Body weight 124.74 kg Tondra Mapus Other [employer] Other 09-10-2021 11:45-0500 Diastolic blood pressure 63 mm[Hg] Tondra Mapus Other [employer] Other 09-10-2021 11:45-0500 Respiratory rate 20 /min Tondra Mapus Other [employer] Other 09-10-2021 11:45-0500 SaO2% (BldA) [Mass fraction] 96 % Tondra Mapus Other [employer] Other 09-10-2021 11:45-0500 Systolic blood pressure 121 mm[Hg] Tondra Mapus Other [employer] Other Encounters Encounter Date Encounter Type Care Provider Facility Start: 09-15-2023 End: 09-15-2023 ambulatory Judith A [facility] Facility:[facility] Start: 09-15-2023 End: 09-15-2023 ambulatory DO Sherman Larson Work Phone: [facility] Work Phone: Start: 09-15-2023 End: 09-15-2023 Departed Referred DO Sherman Larson Work Phone: [facility] [place] Work Phone: Start: 09-09-2023 (DM) Diabetes Tondra Tim [facility] Start: 09-09-2023 Telephone encounter Marcelocamilo Lazaro [facility] Start: 09-09-2023 End: 09-09-2023 ambulatory Sherman Larson [place] [employer] Other Start: 09-09-2023 Registered Recurring DO Sherman Kuns Work Phone: [facility] Work Phone: Start: 07-15-2023 End: 07-15-2023 ambulatory Referral Self Facility:[facility] Start: 07-15-2023 End: 07-15-2023 ambulatory DO Sherman Larson Work Phone: [facility] Work Phone: Start: 07-15-2023 End: 07-15-2023 Patient encounter procedure DO Sherman Larson Work Phone: [facility] Work Phone: Start: 06-29-2023 End: 06-30-2023 ambulatory Sherman Larson Facility:[facility] Start: 06-29-2023 End: 06-29-2023 ambulatory DO Sherman Larson Work Phone: [facility] Work Phone: Start: 06-29-2023 End: 06-29-2023 Discharged Recurring DO Sherman Larson Work Phone: [facility] Work Phone: Start: 06-29-2023 Registered Recurring DO Sherman Larson Work Phone: [facility] [place] Work Phone: Start: 05-26-2023 Registered Recurring DO Sherman Larson Work Phone: [facility] Work Phone: Start: 04-30-2023 End: 04-30-2023 ambulatory Hien Poole Facility:[facility] Start: 04-30-2023 End: 04-30-2023 ambulatory DO Sherman Larson Work Phone: [facility] Work Phone: Start: 04-30-2023 End: 04-30-2023 Discharged Recurring DO Sherman Larson Work Phone: [facility] Work Phone: Start: 04-05-2023 End: 04-05-2023 ambulatory Sherman Larson Other [employer] Other Start: 04-05-2023 Encounter by ji Larson [facility] [place] Start: 04-02-2023 End: 04-02-2023 ambulatory Tondra Mapus Other [employer] Other Start: 04-02-2023 Telephone encounter Geocamilo Dumont [facility] Start: 03-31-2023 End: 03-31-2023 ambulatory Tondra K Mapus Facility:[facility] Start: 03-31-2023 End: 03-31-2023 ambulatory DO Sherman Larson Work Phone: [facility] Work Phone: Start: 03-31-2023 End: 03-31-2023 Patient encounter procedure DO Sherman Larson Work Phone: [facility] [place] Work Phone: Start: 03-30-2023 Registered Recurring DO Sherman Larson Work Phone: [facility] [place] Work Phone: Start: 02-19-2023 ambulatory Ivory Rizo francisco j [facility] Work Phone: [facility] HB-3 Comment on above: antibiotic prescript ion Start: 02-19-2023 E-mail encounter fro m caregiver Ivory Stuart [facility] Work Phone: [facility] Start: 02-19-2023 End: 02-19-2023 Subsequent hospital visit by physician Lior Linton MD Work Phone: [facility] END[facility] Comment on above: Pancreatic cyst [K86 .2] Start: 02-10-2023 (DM) Diabetes Tondra Tim [facility] Start: 02-10-2023 End: 02-10-2023 ambulatory Rosanne Dumont Other [facility] [employer] Other Start: 02-10-2023 Registered Recurring DO Sherman Larson Work Phone: [facility] Work Phone: Start: 02-09-2023 ambulatory Lior Linton MD Work Phone: [facility] Start: 02-04-2023 Telephone encounter Orville Rocha (Team Primary Care Physician) Issa john Pre Anesthesia Comment on above: Received Outside [facility] Records (Lab Results) Start: 02-02-2023 End: 02-02-2023 Admission to establishment Pacc Main [facility] Start: 02-02-2023 End: 02-02-2023 ambulatory SHERMAN LARSON Pre Anesthesia Comment on above: Pre-op evaluation (P rimary Dx); Type 2 diabetes mellitus without complication, unspecified whether detention insulin use (HCC); Mixed hyperlipidemia; Endometrial cancer (HCC); Morbid obesity (HCC) Start: 02-02-2023 End: 02-02-2023 Preprocedural examination done Pacc Virtual Pre Anesthesia Start: 01-22-2023 Telephone encounter Lior page MD Work Phone: Gastroenterology Comment on above: Imaging available fo r review Start: 01-07-2023 End: 01-07-2023 ambulatory LIOR LINTON Facility:[facility] Start: 01-07-2023 End: 01-07-2023 Patient encounter procedure Lior Linton MD Work Phone: Gastroenterology Comment on above: Pancreatic cyst (Qian lakhwinder Dx); Family history of pancreatic cancer; History of endometrial cancer Start: 11-19-2022 ambulatory LIOR OSCAR Facility:[facility] Start: 11-04-2022 (DM) Diabetes Tondra Tim [facility] Start: 11-04-2022 End: 11-04-2022 ambulatory Tondra Dumont Other [employer] Other Start: 11-02-2022 End: 11-02-2022 ambulatory Heidi Sanchez Other [employer] Other Start: 11-02-2022 Encounter by ji Sanchez [facility] Start: 10-30-2022 Telephone encounter Lior page MD Work Phone: Gastroenterology Comment on above: Orders Start: 10-14-2022 End: 10-14-2022 ambulatory Tondra Dumont Other [employer] Other Start: 10-14-2022 Telephone encounter Tondra Dumont [facility] Start: 09-24-2022 End: 09-24-2022 ambulatory Sherman Larson Other [employer] Other Start: 09-24-2022 Office outpatient visit 15 minutes Sherman Larson [facility] [place] Start: 09-17-2022 End: 09-17-2022 ambulatory ЮЛИЯ ODOM Facility:[facility] Start: 09-17-2022 End: 09-17-2022 Follow-up encounter Юлия Odom APRN.[employer] Work Phone: Gynecology Comment on above: Encounter for follow -up surveillance of endometrial cancer (Primary Dx); Pancreatic cyst; Lung nodules Start: 09-17-2022 End: 09-17-2022 Patient encounter procedure Юлия Odom [employer] ARTIST.[employer] Work Phone: [facility] Start: 09-11-2022 End: 09-11-2022 ambulatory ЛЮИЯ ODOM Facility:[facility] Start: 08-13-2022 Telephone encounter Lavinia Winter adiology [facility] Comment on above: Orders Start: 07-21-2022 (DM) Diabetes Tondra Tim [facility] Start: 07-21-2022 End: 07-21-2022 ambulatory Tondra Mapus Other [employer] Other Start: 06-11-2022 End: 06-11-2022 Patient encounter procedure DO Sherman Larson Work Phone: [facility] Start: 04-09-2022 Registered Recurring DO Sherman Salvador Work Phone: [facility] Start: 04-09-2022 (DM) Diabetes Tondra Mapus [facility] Start: 04-09-2022 End: 04-09-2022 ambulatory Tondra Mapus Other [employer] Other Start: 03-25-2022 End: 03-25-2022 ambulatory Sherman Larson Other [employer] Other Start: 03-25-2022 Telephone encounter Sherman Larson [facility] [place] Start: 03-12-2022 End: 03-12-2022 ambulatory Tondra Mapus Other [employer] Other Start: 03-12-2022 Telephone encounter Tondra Mapus [facility] Start: 01-29-2022 End: 01-29-2022 ambulatory Tondra Mapus Other [employer] Other Start: 01-29-2022 Telephone encounter Tondra Mapus [facility] Start: 12-18-2021 (DM) Diabetes Tondra Mapus [facility] Start: 12-18-2021 End: 12-18-2021 ambulatory Tondra Mapus Other [employer] Other Start: 10-18-2021 End: 10-18-2021 ambulatory Sherman Larson Other [employer] Other Start: 10-18-2021 Telephone encounter Sherman Larson [facility] [place] Start: 09-23-2021 End: 09-23-2021 ambulatory Shreman Larson Other [employer] Other Start: 09-23-2021 Office outpatient visit 25 minutes Sherman Rothmanfaby [facility] Start: 09-10-2021 (DM) Diabetes Rosanne Dumont [facility] Start: 09-10-2021 End: 09-10-2021 ambulatory Rosanne Dumont Other [employer] Other Start: 11-04-2018 Preoperative state Rosanne Dawkins s Other [employer] Other Procedures Date Procedure Procedure Detail Performing Clinician Start: 07-15-2023 Screening mammograph y of bilateral breasts DO Sherman Larson Work Phone: Start: 02-19-2023 End: 02-19-2023 Gluc bld gluc mntr dev cleared fda spec home use Jelly MATTA Work Phone: Start: 02-19-2023 Esophagoscp rig ledezma soral hypopharynx crv ramiro Linton MD Work Phone: Start: 06-11-2022 Screening mammograph y of bilateral breasts DO Sherman Larson Work Phone: Start: 06-11-2022 Dual energy X-ray absorptiometry DO Sherman Larson Work Phone: Plan of Treatment Date Care Activity Detail Author Start: 09-15-2023 Superficial Wound Culture Superficial Wound Culture [facility] Start: 10-12-2022 ADVANCE DIRECTIVE DISCUSSION ADVANCE DIRECTIVE DISCUSSION [facility] Start: 10-12-2022 DEPRESSION ASSESSMENT DEPRESSION ASS ESSMENT [facility] Start: 09-11-2022 End: 11-11-2022 CREATININE BLD CREATININE BLD Lab Routine Malignant neoplasm of body of uterus, unspecified site (HCC) Expected: 09/11/2022, Expires: 11/11/2022 [facility] Work Phone: Comment on above: Expected: 09/11/2022 , Expires: 11/11/2022 Start: 06-12-2022 Influenza vaccination INFLUENZA (#1) [facility] Start: 10-12-2021 ADVANCE DIRECTIVE DISCUSSION ADVANCE DIRECTIVE DISCUSSION [facility] Start: 10-12-2021 DEPRESSION ASSESSMENT DEPRESSION ASS ESSMENT [facility] Start: 09-02-2021 COVID-19 VACCINE (4 - Booster for Pfizer series) COVID-19 VACCINE (4 - Booster for Pfizer series) [facility] Start: 2018 BONE DENSITY BONE DENSITY [facility] Start: 2003 SHINGRIX VACCINE (1 of 2) SHINGRIX VACCINE (1 of 2) [facility] Start: 05-04-2002 Urine microalbumin profile DTAP,TDAP,TD (1 - Tdap) [facility] Start: 1998 COLOGUARD (FIT-DNA) COLOGUARD (FIT-D NA) [facility] Start: 1998 Colonoscopy COLONOSCOPY [facility] Start: 1998 COLORECTAL CANCER SCREENING COLORECTAL CANCER SCREENING [facility] Start: [address] COLONOGRAPHY [facility] Start: 1998 FECAL OCCULT BLOOD FECAL OCCULT BLOO D [facility] Start: 1998 SIGMOIDOSCOPY SIGMOIDOSCOPY [facility] Start: 1993 Mammography MAMMOGRAM [facility] Start: 1971 ANNUAL PCP TEAM TENNIS PROFESSIONAL MISHA DISEASE VISIT ANNUAL PCP TEAM CHRONIC DISEASE VISIT [facility] Start: 1971 Hepatitis B surface antibody level LDL CHOLESTEROL [facility] Start: 1971 HEPATITIS C SCREENING HEPATITIS C SC REENING [facility] Start: 1963 3 comp foot exam completed DIABETIC FOOT EXAM [facility] Start: 1963 Hepatitis B screening URINE ALBUMIN:CREATININE RATIO [facility] Start: 1963 Hepatitis C antibody , confirmatory test DILATED RETINAL EXAM [facility] Start: 1959 PNEUMOCOCCAL: 65+ (1 - PCV) PNEUMOCOCCAL: 65+ (1 - PCV) [facility] Start: 1958 Hemoglobin A1c/Hemoglobin.total in Blood HBA1C [facility] Bacteria identified in Unspecified specimen by Aerobe culture [facility] CYTOLOGY NON-REGISTRATION CLERK CYTOLOGY NON-GY N Lab Routine Pancreatic cyst Release Upon Ordering for 1 Occurrences starting 02/19/2023 [facility] Work Phone: Comment on above: Release Upon Orderin g for 1 Occurrences starting 02/19/2023 End: 01-08-2024 EGD - THERAPEUTIC, EUS, OR TUBE INTERVENTIONS EGD - THERAPEUTIC, EUS, OR TUBE INTERVENTIONS Endoscopy Routine Pancreatic cyst 1 Occurrences starting 01/07/2023 until 01/08/2024 [facility] Work Phone: Comment on above: 1 Occurrences starti ng 01/07/2023 until 01/08/2024 [facility] Immunizations Immunization Date Immunization Notes Care Provider Fa [facility] 02-18-2022 COVID-19 original vaccine, age 12+ yr, monovalent ([employer]) Ivory Stuart [facility] Work Phone: [facility] 02-18-2022 COVID-19 Vaccine Pfizer - Documentation Purposes Only Sherman Larson Other [employer] Other 07-08-2021 COVID-19 Pfizer Sherman Kuns Other [facility] 07-08-2021 influenza, seasonal, injectable Sherman Rothmans Other [employer] Other 01-03-2021 COVID-19 Pfizer Sherman Kuns Other [facility] 12-13-2020 COVID-19 Pfizer Sherman Kuns Other [facility] 09-21-2020 zoster vaccine recombinant Sherman Kuns Other [employer] Other 06-26-2020 zoster vaccine recombinant Sherman Kuns Other [employer] Other 06-20-2019 influenza, seasonal, injectable Rosanne Dumont Other [employer] Other 07-05-2018 influenza, injectabl e, quadrivalent, preservative free Lavinia Godfrey RN [facility] 06-01-2017 influenza, injectabl e, quadrivalent, preservative free Lavinia Godfrey RN [facility] 08-10-2009 novel [id number], preservative-free, injectable Lavinia Godfrey RN [facility] 05-03-2002 TD(adult) unspecifie d formulation Lavinia Godfrey RN [facility] Payers Date Payer Category Payer Medicare MEDICARE MEDICAR E A AND B [id number] 2018-Present [phone] [address] [address] [place] [address] Medicare [id number] 2018 Unknown [id number] 2018 Unknown [id number] 2018 Medicare [id number] 2018 Self-pay [id number] 2018 Unknown [id number] Unknown [id number] Unknown [id number] Unknown [id number] Unknown [id number] Unknown [id number] Unknown [id number] Unknown [id number] Social History Date Type Detail Facility Unknown if ever smoked [employer] Other Sex Assigned At Sex Assigned At Bir th [employer] Other Start: 07-30-2021 End: 06-29-2023 Tobacco smoking status NHIS Never smoked tobacco (finding) [facility] Start: 1955 Sex Assigned At Female F [facility] Start: 02-12-2018 End: 09-17-2022 Tobacco use and exposure Smokeless tobacco non-user [facility] Start: 04-03-2021 End: 02-02-2023 Alcohol intake Current non-drinker of alcohol (finding) [facility] Start: 09-01-2022 End: 09-11-2022 Exposure to SARS-CoV-2 (event) Not sure [facility] Medical Equipment Procedure Code Equipment Code Equipment Origin al Text Equipment Identifier Dates Arthroplasty, hip, total, anterior approach HEAD BIOLOX CERAMIC 32/-3.5 S FDA Start: 11-16-2018 Arthroplasty, hip, total, anterior approach LINER VIVACIT-E 32MM SIZE GG FDA Start: 11-16-2018 Arthroplasty, hip, total, anterior approach SCREW BONE 6.5MM X 30MM FDA Start: 11-16-2018 Arthroplasty, hip, total, anterior approach SHELL TM 48MM SIZE GG FDA Start: 11-16-2018 Arthroplasty, hip, total, anterior approach STEM 09/24 FITMORE UNCEM FDA Start: 11-16-2018 Arthroplasty, hip, total, anterior approach HEAD BIOLOX CERAMIC 32/-3.5 S FDA Start: 11-16-2018 Arthroplasty, hip, total, anterior approach LINER VIVACIT-E 32MM SIZE GG FDA Start: 11-16-2018 Arthroplasty, hip, total, anterior approach SCREW BONE 6.5MM X 30MM FDA Start: 11-16-2018 Arthroplasty, hip, total, anterior approach SHELL TM 48MM SIZE GG FDA Start: 11-16-2018 Arthroplasty, hip, total, anterior approach STEM 09/24 FITMORE UNCEM FDA Start: 11-16-2018 Arthroplasty, hip, total, anterior approach HEAD BIOLOX CERAMIC 32/-3.5 S FDA Start: 11-16-2018 Arthroplasty, hip, total, anterior approach LINER VIVACIT-E 32MM SIZE GG FDA Start: 11-16-2018 Arthroplasty, hip, total, anterior approach SCREW BONE 6.5MM X 30MM FDA Start: 11-16-2018 Arthroplasty, hip, total, anterior approach SHELL TM 48MM SIZE GG FDA Start: 11-16-2018 Arthroplasty, hip, total, anterior approach STEM B/09/24 FITMORE [facility] FDA Start: 11-16-2018 Arthroplasty, hip, total, anterior approach HEAD BIOLOX CERAMIC 32/-3.5 S FDA Start: 11-16-2018 Arthroplasty, hip, total, anterior approach LINER VIVACIT-E 32MM SIZE GG FDA Start: 11-16-2018 Arthroplasty, hip, total, anterior approach SCREW BONE 6.5MM X 30MM FDA Start: 11-16-2018 Arthroplasty, hip, total, anterior approach SHELL TM 48MM SIZE GG FDA Start: 11-16-2018 Arthroplasty, hip, total, anterior approach STEM 09/24 [facility]MORE [facility] FDA Start: 11-16-2018 Arthroplasty, hip, total, anterior approach HEAD BIOLOX CERAMIC 32/-3.5 S FDA Start: 11-16-2018 Arthroplasty, hip, total, anterior approach LINER VIVACIT-E 32MM SIZE GG FDA Start: 11-16-2018 Arthroplasty, hip, total, anterior approach SCREW BONE 6.5MM X 30MM FDA Start: 11-16-2018 Arthroplasty, hip, total, anterior approach SHELL TM 48MM SIZE GG FDA Start: 11-16-2018 Arthroplasty, hip, total, anterior approach STEM 09/24 [facility] FDA Start: 11-16-2018 Arthroplasty, hip, total, anterior approach HEAD BIOLOX CERAMIC 32/-3.5 S FDA Start: 11-16-2018 Arthroplasty, hip, total, anterior approach LINER VIVACIT-E 32MM SIZE GG FDA Start: 11-16-2018 Arthroplasty, hip, total, anterior approach SCREW BONE 6.5MM X 30MM FDA Start: 11-16-2018 Arthroplasty, hip, total, anterior approach SHELL TM 48MM SIZE GG FDA Start: 11-16-2018 Arthroplasty, hip, total, anterior approach STEM B09/24 [facility] FDA Start: 11-16-2018 Arthroplasty, hip, total, anterior approach HEAD BIOLOX CERAMIC 32/-3.5 S FDA Start: 11-16-2018 Arthroplasty, hip, total, anterior approach LINER VIVACIT-E 32MM SIZE GG FDA Start: 11-16-2018 Arthroplasty, hip, total, anterior approach SCREW BONE 6.5MM X 30MM FDA Start: 11-16-2018 Arthroplasty, hip, total, anterior approach SHELL TM 48MM SIZE GG FDA Start: 11-16-2018 Arthroplasty, hip, total, anterior approach STEM B/3 09/24 [facility] FDA Start: 11-16-2018 Start: 09-14-2013 Clinical Notes 09-10-2021 to 09-09-2023 Note Date & Type Note Facility 09-09-2023 Evaluation note Encounter Date Diagnosis Assessment Notes Aug, Type 2 diabetes mellitus (ICD-10 - E11.9) Managing type 2 diabetes material was published 1. Uncontrolled, Type 2 diabetes A1C 8.3% 2. Blood glucose levels above target. According to Petflow 2 cgm download 08/27/2023-08/13 Avg glucose 171. >250-8%, >180-26%, 70-180-66%, <70-0%, <54-0%. CV 27%, GMI 7.4%. Reviewed download with pt, readings above target postpranidal from higher glycemic carb load. Recommend prebolus 5 minutes ac for improved postprandial glycemia. Reviewed with pt how to titrate basal/meal insulin according to fasting am/meal to meal glucose pattern. Pt verbalizes understanding. 3. Patient is alert, oriented and receptive to making changes or counseling. Notes: Seen for an assessment of current glucose pattern, changes in treatment plan, counseling and coordination of care related to diabetes, risks, and benefits of treatment, medications, and side effects. TOPICS REVIEWED: 1. Time was spent reviewing: a. Basic concepts of diabetes, progressive beta cell , concepts of basal/bolus/cor rective insulin requirements. Basal: The goal is fasting blood glucose of 90-130mg. IF fasting blood glucose starts to run under 100mg 3x's/ week, decrease dose by 10%. Bolus: The goal is to hold the blood glucose level steady meal to meal. If pt. is going to have increased physical activity after a meal, decrease the schedule meal dose prior to the activity by 30-50%. If pt. skips a meal do not take this dose. Correction: The goal is to correct an elevated glucose back into the 100-150mg range b. Nutrition: Concepts of healthy diet, encouraged to decrease saturated fat in diet and increase non-starchy vegetables and fruits in diet. BMI: Pt. needs to select one small change to decrease caloric intake or increase physical activity to help decrease weight. c. Correct treatment of hypoglycemia, carry a glucose source at all times on your person, in vehicles, and at bedside. Can use glucose tablets/4, four ounces of pop or juice equal to 15 G of carbohydrate. Blood glucose should be 100 mg/dl or higher when driving. d. ADA glucose goals for age and medical complexity reviewed e. Patient questions addressed 2. Activity/exerci se: Encouraged to start any form of physical activity. Start low level and increase slowly to a minimal goal of 150 minutes/week. Limit activity to what is allowed by other issues such as cardiac, pulmonary or orthopedic restrictions. 3. Standards of care: Reminded to have an annual dilated eye exam, A1C every 3 months, urine testing for microalbumin once/year, check feet daily and report any cuts or sores that do not appear to be healing. 4. Meter: Plan to check blood glucose: Please check blood glucose levels 4 times/day. Back to back meals reveal effectiveness of bolus dosing. The blood glucose data is used to determine insulin doses,and confirm symptoms of hypoglcyemia and hyperglcyemia. 5. [facility]. Contact office if any issues or concerns with patterns of hypoglycemia, hyperglycemia, or diabetes medication issues. 6. Prescriptions: None at this time. 7. Prescriptions will not be filled unless you are compliant with follow up appointments or have a follow up appointment scheduled as ordered by your provider. Refills should be requested at the time of your visit. Aug, Dietary counseling and surveillance (ICD-10 - Z71.3) Eat well, exercise well, be well: dietary and fitness guidelines material was published Aug, Hyperlipidemia (ICD-10 - E78.5) Managing your cholesterol material was published 03/2023 ldl 61- at goal- trig 218- on statin. Aug, HTN (hypertension) (ICD-10 - I10) High blood pressure material was published Aug, emt 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 current use of insulin (ICD-10 - Z79.4) Aug, B12 deficiency (ICD-10 - E53.8) Good food sources of vitamin B12 material was published 03/2023 Vit b12 221 Aug, BMI 45.0-49.9, adult (ICD-10 - Z68.42) Setting weight-loss goals material was published 6 pound weight loss from last visit, continue with weight loss efforts Aug, Skin abnormalities (ICD-10 - L98.9) Referral to dermatology [facility] Other 11-29-2023 Evaluation note* Encounter Date Diagnosis Assessment Notes Treatment Notes Treatment Clinical Notes Aug, Skin abnormalities (ICD-10 - L98.9) [facility] Other 09-18-2023 Progress note Author Hien Poole [facility] June 29, 2023 9:41am Note Date/Time June 29, 2023 9:36am [facility] [address] [place] [address] Wound Center Provider Note Signed Patient: Magy Castro MR#: [id number] : 1955 Acct:[id number] Age/Sex: 67 / F Copies to: DO Hien Taylor, [employer]~ HPI Date of Visit Date of Visit: Date of Service: 06/29/2023 Time of Service: 09:35 Narrative HPI: 06/29/23 Debbie is a 67 year old female presenting to [facility] wound care for a follow up visit for eval and treatment of RLE ulcer that appear d/t venous and lymphedema etiologies. She has been a patient here in the past. Urgo k2 wrap will be used along with topical steroid and she will present here for dressings.We spoke about vascular and she did has been having her venous procedures in [place]. Weight loss and elevation and compression and good diabetic control will be needed in order to heal the ulcers as well as treating the root cause asbest we all can. She may have a fungal rash and so oral Diflucan was escribed last visit. She has been taking horse chestnut for its venous anti-inflammatory properties. Probiotics- Florastor in particular- and coconut oil orally were recommended also for the gut/immune health support provided by both of these. She is healed today and she will wear her compression wraps and will call with any future needs. The 06/22/23 hpi seems to have not saved or not been completed so the 06/29/23 is a combo of both. Subjective Pain Right Lower Leg: Pain Intensity: 0 Wound/Ulcer History When did wound start?: Early May 2023 Mode of Arrival/ Tin Plater: Personal vehicle Lives with:: Spouse Appetite Description: Within Normal Limits Who helps w/ dressing change?: Wound Care Dept Why Do You Need Help?: Can't Reach Ulcer Smoking Status: Never smoker [facility] Medical History (Updated 06/29/23 @ 09:36 by Hien Poole APRN) Cellulitis Diabetes mellitus, type 2 Hyperlipidemia Peripheral vascular disease Wound, open Surgical History H/O total hip arthroplasty H/O: hysterectomy Hx of appendectomy Hx of cholecystectomy Family History Brother Cancer Social History Smoking Status: Never smoker Substance Use Type: None Grafts History of Graft History of Graft?: No Exam Physical Exam Vital Signs: Temp Pulse Resp BP O2 Del Method 97.6 F 92 H 20 145/70 H Room Air 06/29/23 09:30 06/29/23 09:30 06/29/23 09:30 06/29/23 09:30 06/29/23 09:30 Const General: cooperative, comfortable and no acute distress Nutritional Appearance: obese Orientation: alert, awake and oriented x3 Lower/Upper Extremity Exam Vascular Exam-Edema Right Lower Extremity: Edema Type: Lymphedema Vascular Exam-Pulses Right Brachial: Pulse Assessment Method: NIBP Objective Meds/Allergies Home Medications atorvastatin 10 mg tablet (Lipitor) 10 mg PO Q3-4D hyperlipidemia 01/06/18 [History Confirmed 06/22/23] cyanocobalamin (vitamin B-12) 1,000 mcg tablet (Vitamin B-12) 1,000 mcg PO DAILY01/06/18 [History Confirmed 06/22/23] empagliflozin 25 mg tablet (Jardiance) 25 mg PO DAILY DM 01/06/18 [History Confirmed 06/22/23] insulin glargine 100 unit/mL subcutaneous solution (Lantus U-100 Insulin) 38 unit subcut QHS DM 01/06/18 [History Confirmed 06/22/23] liraglutide 0.6 mg/0.1 mL (18 mg/3 mL) subcutaneous pen injector (Victoza 2- Enoc)1.2 mg subcut QAM DM 01/06/18 [History Confirmed 06/22/23] metformin 1,000 mg tablet (Glucophage) 1,000 mg PO BID DM 01/06/18 [History Confirmed 06/22/23] cholecalciferol (vitamin D3) 125 mcg (5,000 unit) tablet (Vitamin D3) 5,000 unitPO DAILY 11/02/18 [History Confirmed 06/22/23] acetaminophen 500 mg tablet 500 mg PO Q6H PRN Pain ##0 10/29/20 [Rx Confirmed 06/22/23] aspirin 325 mg tablet 325 mg PO DAILY 03/25/23 [History Confirmed 06/22/23] horse chestnut 300 mg capsule 300 mg PO DAILY 30 days #30 caps 03/25/23 [Rx Confirmed 06/22/23] insulin aspart (niacinamide) (U-100) 100 unit/mL subcutaneous solution (Fiasp U- 100 Insulin) See Rx Instructions .Route .COMPLEX 03/25/23 [History Confirmed 06/22/23] fluconazole 150 mg tablet (Diflucan) 150 mg PO Q3D 2 doses #2 tabs 06/22/23 [Rx] Allergies No Known Allergies Allergy (Verified 06/22/23 13:32) Wound/Ulcer Right Lower Leg: Type: Venous Stasis Ulcer (appears to be fungal and/or cellulitic/dermatitis as well) Thickness: Skin Breakdown Percent of Wound Bed Granulated/Red: 0 Length (cm): 0 Width (cm): 0 Depth (cm): 0 CM Sq: 0.000 Surrounding Tissue Appearance: Dryness Surrounding Tissue Temp: Warm Drainage Amount: None Drainage Odor: No Odor Results Height: 5 ft 3 in Weight: 117.934 kg Body Mass Index: 46.0 Assessment/Plan Assessment/Plan (1) Venous stasis ulcer of right lower extremity: Code(s): I83.019 - Varicose veins of right lower extremity with ulcer of unspecified site Status: Resolved (2) Candidiasis: Assessment/Problem Details: rle Code(s): B37.9 - Candidiasis, unspecified Status: Resolved (3) Venous stasis of both lower extremities: Code(s): I87.8 - Other specified disorders of veins Status: Chronic (4) Lymphedema of both lower extremities: Code(s): I89.0 - Lymphedema, not elsewhere classified Status: Chronic (5) Obesity: Qualifiers: Obesity type: due to excess calories Obesity classification: adult class 3 (BMI >= 40) Body mass index: BMI 45.0-49.9 Code(s): E66.9 - Obesity, unspecified Status: Chronic (6) Edema: Assessment/Problem Details: ble Qualifiers: Edema type: localized Qualified Code(s): R60.0 - Localized edema Code(s): R60.9 - Edema, unspecified Status: Chronic (7) Diabetes: Qualifiers: Diabetes mellitus type: type 2 Code(s): E11.9 - Type 2 diabetes mellitus without complications Status: Chronic (8) Inflammation: Status: Chronic (9) Hemosiderin 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: Assessment/Problem Details: ble Code(s): L81.8 - Other specified disorders of pigmentation; I83.899 - Varicose veins of unspecified lower extremity with other complications Status: Chronic Time spent with patient Time Spent With Patient (min): 10 Dictated By: Hien Poole APRN DD/ 4 Signed By: <Electronically signed by WALTER Poole> 06/29/23940 [facility] Work Phone: 1(122) 602-717809-11-2023 Progress note Author Hien Poole [facility] June 22, 2023 1:48pm Note Date/Time June 22, 2023 1:48pm [facility] [address] [place] [address] Wound Center Provider Note Signed Patient: Magy Castro MR#: [id number] : 1955 Acct:[id number] Age/Sex: 67 / F Copies to: Sherman Larson,DO Hien Poole APRN~ HPI Date of Visit Date of Visit: Date of Service: 06/22/2023 Time of Service: 13:44 Subjective Pain Right Lower Leg: Pain Intensity: 0 Wound/Ulcer History When did wound start?: Early May 2023 Mode of Arrival/ Tin Plater: Personal vehicle Lives with:: Spouse Appetite Description: Within Normal Limits Who helps w/ dressing change?: Wound Care Dept Why Do You Need Help?: Can't Reach Ulcer Smoking Status: Never smoker [facility] Medical History (Updated 06/22/23 @ 13:46 by Hien Poole APRN) Cellulitis Diabetes mellitus, type 2 Hyperlipidemia Peripheral vascular disease Wound, open Surgical History H/O total hip arthroplasty H/O: hysterectomy Hx of appendectomy Hx of cholecystectomy Family History Brother Cancer Social History Smoking Status: Never smoker Substance Use Type: None Grafts History of Graft History of Graft?: No Exam Physical Exam Vital Signs: Temp Pulse Resp BP O2 Del Method 97.3 F L 85 18 141/73 H Room Air 06/22/23 13:30 06/22/23 13:30 06/22/23 13:30 06/22/23 13:30 06/22/23 13:30 Const General: cooperative, comfortable and no acute distress Nutritional Appearance: obese Orientation: alert, awake and oriented x3 Lower/Upper Extremity Exam Vascular Exam-Edema Right Lower Extremity: Edema Type: Lymphedema Vascular Exam-Pulses Right Brachial: Pulse Assessment Method: NIBP Objective Meds/Allergies Home Medications atorvastatin 10 mg tablet (Lipitor) 10 mg PO Q3-4D hyperlipidemia 01/06/18 [History Confirmed 06/22/23] cyanocobalamin (vitamin B-12) 1,000 mcg tablet (Vitamin B-12) 1,000 mcg PO DAILY01/06/18 [History Confirmed 06/22/23] empagliflozin 25 mg tablet (Jardiance) 25 mg PO DAILY DM 01/06/18 [History Confirmed 06/22/23] insulin glargine 100 unit/mL subcutaneous solution (Lantus U-100 Insulin) 38 unit subcut QHS DM 01/06/18 [History Confirmed 06/22/23] liraglutide 0.6 mg/0.1 mL (18 mg/3 mL) subcutaneous pen injector (Victoza 2- Enoc)1.2 mg subcut QAM DM 01/06/18 [History Confirmed 06/22/23] metformin 1,000 mg tablet (Glucophage) 1,000 mg PO BID DM 01/06/18 [History Confirmed 06/22/23] cholecalciferol (vitamin D3) 125 mcg (5,000 unit) tablet (Vitamin D3) 5,000 unitPO DAILY 11/02/18 [History Confirmed 06/22/23] acetaminophen 500 mg tablet 500 mg PO Q6H PRN Pain ##0 10/29/20 [Rx Confirmed 06/22/23] aspirin 325 mg tablet 325 mg PO DAILY 03/25/23 [History Confirmed 06/22/23] horse chestnut 300 mg capsule 300 mg PO DAILY 30 days #30 caps 03/25/23 [Rx Confirmed 06/22/23] insulin aspart (niacinamide) (U-100) 100 unit/mL subcutaneous solution (Fiasp U- 100 Insulin) See Rx Instructions .Route .COMPLEX 03/25/23 [History Confirmed 06/22/23] fluconazole 150 mg tablet (Diflucan) 150 mg PO Q3D 2 doses #2 tabs 06/22/23 [Rx] Allergies No Known Allergies Allergy (Verified 06/22/23 13:32) Wound/Ulcer Right Lower Leg: Type: Venous Stasis Ulcer (appears to be fungal and/or cellulitic/dermatitis as well) Thickness: Skin Breakdown Bed Appearance: Beefy Red, Epithelial Tissue or Bridge, [place] and Yellow Surrounding Tissue Appearance: Bright Red and Satellite lesions Surrounding Tissue Temp: Warm Drainage Amount: Moderate Drainage Description: Serous Drainage Odor: No Odor Comment: from base of toes to below the knee- no distinct measurement Results Height: 5 ft 3 in Weight: 117.934 kg Body Mass Index: 46.0 Assessment/Plan Assessment/Plan (1) Venous stasis ulcer of right lower extremity: Code(s): I83.019 - Varicose veins of right lower extremity with ulcer of unspecified site Status: Chronic (2) Candidiasis: Assessment/Problem Details: rle Code(s): B37.9 - Candidiasis, unspecified Status: Suspected (3) Venous stasis of both lower extremities: Code(s): I87.8 - Other specified disorders of veins Status: Chronic (4) Lymphedema of both lower extremities: Code(s): I89.0 - Lymphedema, not elsewhere classified Status: Chronic (5) Obesity: Qualifiers: Obesity type: due to excess calories Obesity classification: adult class 3 (BMI >= 40) Body mass index: BMI 45.0-49.9 Code(s): E66.9 - Obesity, unspecified Status: Chronic (6) Edema: Assessment/Problem Details: ble Qualifiers: Edema type: localized Qualified Code(s): R60.0 - Localized edema Code(s): R60.9 - Edema, unspecified Status: Chronic (7) Diabetes: Qualifiers: Diabetes mellitus type: type 2 Code(s): E11.9 - Type 2 diabetes mellitus without complications Status: Chronic (8) Inflammation: Status: Chronic (9) Hemosiderin 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: Assessment/Problem Details: ble Code(s): L81.8 - Other specified disorders of pigmentation; I83.899 - Varicose veins of unspecified lower extremity with other complications Status: Chronic Time spent with patient Time Spent With Patient (min): 18 Dictated By: Hien Poole APRN DD/ 43 Signed By: <Electronically signed by WALTER Poole> 06/22/23 1348 [facility] Work Phone: 1(156) 218-239307-10-2023 Progress note Author Hien Poole [facility] April 20, 2023 9:12am Note Date/Time April 20, 2023 9:12 am [facility] [address] [place] [address] Wound Center Provider Note Signed Patient: Magy Castro MR#: [id number] : 1955 Acct:[id number] Age/Sex: 67 / F Copies to: Sehrman Larson,DO Hien Poole APRN~ HPI Date of Visit Date of Visit: Date of Service: 04/20/2023 Time of Service: 09:10 Narrative HPI: 03/25/23 Debbie is a 67 year old female presenting to [facility] wound care for an initial visit for eval and treatment of BLE ulcers that appear d/t venous and lymphedema etiologies. She has been a patient here in the past. Unna wraps will be used along with topical steroid and coconut oil and she will present here fordressings. We spoke about vascular and she did have an ablation with [facility] years ago on the LLE but nothing on the RLE- we spoke about referring back and she said that he seemed disinterested in any further work being done on her legs- I asked if she would be interested in seeing the vascular group in [place] but she wants to wait at this time. Weight loss and elevation and compression and good diabetic control will be needed in order to heal the ulcersas well as treating the root cause as best we all can. She may have an early cellulitis and so oral Doxy was escribed today and horse chestnut was as well for its venous anti-inflammatory properties. Probiotics and coconut oil orally were recommended also for the gut/immune health support provided by both of these. 04/02/23 overall better, is still taking the doxy, orders the same, can return next week, right leg may be healed at that point and she can return to her stockings 04/09/23 left leg much better, right leg looks fungal but also possibly cellulitic and so oral diflucan was ordered along with keflex, topical nystatin was applied today to the right leg and the unna was changed to the urgo, will return on thursday, is taking the coconut oil orally and the probiotic 04/20/23 left leg nearly healed, can bring compression sock to next appt, right leg looks better and she says that it feels better, orders will be change to steroid topically to the right leg, will do [facility] referral today, continues to take the horse chestnut and probiotics Subjective Pain Left Lower Leg: Pain Intensity: 0 Right Lower Leg: Pain Intensity: 0 Wound/Ulcer History When did wound start?: July 2022 Mode of Arrival/ Tin Plater: Personal vehicle Lives with:: Spouse Appetite Description: Within Normal Limits Who helps w/ dressing change?: Wound Care Dept Why Do You Need Help?: Can't Reach Ulcer and Limited mobility Smoking Status: Never smoker [facility] Medical History (Updated 04/20/23 @ 09:10 by Hien Poole APRN) Cellulitis Diabetes mellitus, type 2 Hyperlipidemia Peripheral vascular disease Wound, open Surgical History H/O total hip arthroplasty H/O: hysterectomy Hx of appendectomy Hx of cholecystectomy Family History Brother Cancer Social History Smoking Status: Never smoker Substance Use Type: None Grafts History of Graft History of Graft?: No Exam Physical Exam Vital Signs: Temp Pulse Resp BP O2 Del Method 98.2 F 86 20 160/73 H Room Air 04/20/23 09:00 04/20/23 09:00 04/20/23 09:00 04/20/23 09:00 04/16/23 08:38 Const General: cooperative, comfortable and no acute distress Nutritional Appearance: obese Orientation: alert, awake and oriented x3 Lower/Upper Extremity Exam Vascular Exam-Edema Left Lower Extremity: Edema Type: Lymphedema Right Lower Extremity: Edema Type: Lymphedema Vascular Exam-Pulses Left Brachial: Pulse Assessment Method: NIBP Objective Meds/Allergies Home Medications atorvastatin 10 mg tablet (Lipitor) 10 mg PO Q3-4D hyperlipidemia 01/06/18 [History Confirmed 04/09/23] cyanocobalamin (vitamin B-12) 1,000 mcg tablet (Vitamin B-12) 1,000 mcg PO DAILY01/06/18 [History Confirmed 04/09/23] empagliflozin 25 mg tablet (Jardiance) 25 mg PO DAILY DM 01/06/18 [History Confirmed 04/09/23] insulin glargine 100 unit/mL subcutaneous solution (Lantus U-100 Insulin) 38 unit subcut QHS DM 01/06/18 [History Confirmed 04/09/23] liraglutide 0.6 mg/0.1 mL (18 mg/3 mL) subcutaneous pen injector (Victoza 2- Enoc)1.2 mg subcut QAM DM 01/06/18 [History Confirmed 04/09/23] metformin 1,000 mg tablet (Glucophage) 1,000 mg PO BID DM 01/06/18 [History Confirmed 04/09/23] cholecalciferol (vitamin D3) 125 mcg (5,000 unit) tablet (Vitamin D3) 5,000 unitPO DAILY 11/02/18 [History Confirmed 04/09/23] acetaminophen 500 mg tablet 500 mg PO Q6H PRN Pain ##0 10/29/20 [Rx Confirmed 04/09/23] aspirin 325 mg tablet 325 mg PO DAILY 03/25/23 [History Confirmed 04/09/23] doxycycline hyclate 100 mg capsule 100 mg PO BID 14 days #28 caps 03/25/23 [Rx Confirmed 04/09/23] horse chestnut 300 mg capsule 300 mg PO DAILY 30 days #30 caps 03/25/23 [Rx Confirmed 04/09/23] insulin aspart (niacinamide) (U-100) 100 unit/mL subcutaneous solution (Fiasp U- 100 Insulin) See Rx Instructions .Route .COMPLEX 03/25/23 [History Confirmed 04/09/23] cephalexin 500 mg capsule 500 mg PO BID 7 days #14 caps 04/09/23 [Rx] fluconazole 150 mg tablet (Diflucan) 150 mg PO DAILY 1 dose #1 tab 04/09/23 [Rx] Allergies No Known Allergies Allergy (Verified 03/25/23 14:32) Wound/Ulcer Right Lower Leg: Type: Lymphedema (and venous) Thickness: Skin Breakdown Bed Appearance: [place] Percent of Wound Bed Granulated/Red: 100 Percent of Devitalized: 0 Length (cm): 35.0 Width (cm): 40.0 Depth (cm): 0.1 CM Sq: 1400.000 Surrounding Tissue Appearance: Peeling and Dryness Surrounding Tissue Temp: Warm Drainage Amount: None Drainage Description: Serosanguineous Drainage Odor: No Odor Left Lower Leg: Type: Lymphedema (and venous) Thickness: Skin Breakdown Bed Appearance: [place] Percent of Wound Bed Granulated/Red: 100 Percent of Devitalized: 0 Length (cm): 0.1 Width (cm): 0.1 Depth (cm): 0.1 CM Sq: 0.010 Surrounding Tissue Appearance: Hyperpigmented Surrounding Tissue Temp: Warm Drainage Amount: Scant Drainage Description: Serosanguineous Drainage Odor: No Odor Results Height: 5 ft 4 in Weight: 117.934 kg Body Mass Index: 44.6 Assessment/Plan Assessment/Plan (1) Venous stasis ulcer of right lower extremity: Code(s): I83.019 - Varicose veins of right lower extremity with ulcer of unspecified site Status: Chronic (2) Venous stasis ulcer of left lower extremity: Code(s): I83.029 - Varicose veins of left lower extremity with ulcer of unspecified site Status: Chronic (3) Venous stasis of both lower extremities: Code(s): I87.8 - Other specified disorders of veins Status: Chronic (4) Lymphedema of both lower extremities: Code(s): I89.0 - Lymphedema, not elsewhere classified Status: Chronic (5) Obesity: Qualifiers: Obesity type: due to excess calories Obesity classification: adult class 3 (BMI >= 40) Body mass index: BMI 45.0-49.9 Code(s): E66.9 - Obesity, unspecified Status: Chronic (6) Edema: Assessment/Problem Details: ble Qualifiers: Edema type: localized Qualified Code(s): R60.0 - Localized edema Code(s): R60.9 - Edema, unspecified Status: Chronic (7) Diabetes: Qualifiers: Diabetes mellitus type: type 2 Code(s): E11.9 - Type 2 diabetes mellitus without complications Status: Chronic (8) Inflammation: Status: Chronic (9) Hemosiderin 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: Assessment/Problem Details: ble Code(s): L81.8 - Other specified disorders of pigmentation; I83.899 - Varicose veins of unspecified lower extremity with other complications Status: Chronic (10) Cellulitis: Assessment/Problem Details: rle Qualifiers: Site of cellulitis: extremity Laterality: left Code(s): L03.90 - Cellulitis, unspecified Status: Resolved (11) Candidiasis: Assessment/Problem Details: rle Code(s): B37.9 - Candidiasis, unspecified Status: Resolved Time spent with patient Time Spent With Patient (min): 13 Dictated By: Hien Poloe APRN DD/ 9 Signed By: <Electronically signed by WALTER Poole> 04/20/23911 [facility] Work Phone: [phone] 389-171706-29-2023 Progress note Author Hien Poole [facility] April 09, 2023 10:05am Note Date/Time April 09, 2023 10:0 5am [facility] [address] [place] [address] Wound Center Provider Note Signed Patient: Magy Castro MR#: [id number] : 1955 Acct:[id number] Age/Sex: 67 / F Copies to: Sherman Larson,DO Hien Poole APRN~ HPI Date of Visit Date of Visit: Date of Service: 04/09/2023 Time of Service: 10:00 Narrative HPI: 03/25/23 Debbie is a 67 year old female presenting to [facility] wound care for an initial visit for eval and treatment of BLE ulcers that appear d/t venous and lymphedema etiologies. She has been a patient here in the past. Unna wraps will be used along with topical steroid and coconut oil and she will present here fordressings. We spoke about vascular and she did have an ablation with [facility] years ago on the LLE but nothing on the RLE- we spoke about referring back and she said that he seemed disinterested in any further work being done on her legs- I asked if she would be interested in seeing the vascular group in [place] but she wants to wait at this time. Weight loss and elevation and compression and good diabetic control will be needed in order to heal the ulcersas well as treating the root cause as best we all can. She may have an early cellulitis and so oral Doxy was escribed today and horse chestnut was as well for its venous anti-inflammatory properties. Probiotics and coconut oil orally were recommended also for the gut/immune health support provided by both of these. 04/02/23 overall better, is still taking the doxy, orders the same, can return next week, right leg may be healed at that point and she can return to her stockings 04/09/23 left leg much better, right leg looks fungal but also possibly cellulitic and so oral diflucan was ordered along with keflex, topical nystatin was applied today to the right leg and the unna was changed to the urgo, will return on thursday, is taking the coconut oil orally and the probiotic Subjective Pain Left Lower Leg: Pain Intensity: 0 Right Lower Leg: Pain Intensity: 0 Wound/Ulcer History When did wound start?: July 2022 Mode of Arrival/ Tin Plater: Personal vehicle Lives with:: Spouse Appetite Description: Within Normal Limits Who helps w/ dressing change?: Wound Care Dept Why Do You Need Help?: Can't Reach Ulcer and Limited mobility Smoking Status: Never smoker [facility] Medical History (Updated 04/09/23 @ 10:04 by Hien Copsey, [employer]) Cellulitis Diabetes mellitus, type 2 Hyperlipidemia Peripheral vascular disease Wound, open Surgical History H/O total hip arthroplasty H/O: hysterectomy Hx of appendectomy Hx of cholecystectomy Family History Brother Cancer Social History Smoking Status: Never smoker Substance Use Type: None Grafts History of Graft History of Graft?: No Exam Physical Exam Vital Signs: Temp Pulse Resp BP O2 Del Method 97.7 F 90 18 157/60 H Room Air 04/09/23 09:37 04/09/23 09:37 04/09/23 09:37 04/09/23 09:37 04/09/23 09:37 Const General: cooperative, comfortable and no acute distress Nutritional Appearance: obese Orientation: alert, awake and oriented x3 Lower/Upper Extremity Exam Vascular Exam-Edema Left Lower Extremity: Edema Type: Lymphedema Right Lower Extremity: Edema Type: Lymphedema Vascular Exam-Pulses Left Brachial: Pulse Assessment Method: NIBP Objective Meds/Allergies Home Medications atorvastatin 10 mg tablet (Lipitor) 10 mg PO Q3-4D hyperlipidemia 01/06/18 [History Confirmed 04/09/23] cyanocobalamin (vitamin B-12) 1,000 mcg tablet (Vitamin B-12) 1,000 mcg PO DAILY01/06/18 [History Confirmed 04/09/23] empagliflozin 25 mg tablet (Jardiance) 25 mg PO DAILY DM 01/06/18 [History Confirmed 04/09/23] insulin glargine 100 unit/mL subcutaneous solution (Lantus U-100 Insulin) 38 unit subcut QHS DM 01/06/18 [History Confirmed 04/09/23] liraglutide 0.6 mg/0.1 mL (18 mg/3 mL) subcutaneous pen injector (Victoza 2- Enoc)1.2 mg subcut QAM DM 01/06/18 [History Confirmed 04/09/23] metformin 1,000 mg tablet (Glucophage) 1,000 mg PO BID DM 01/06/18 [History Confirmed 04/09/23] cholecalciferol (vitamin D3) 125 mcg (5,000 unit) tablet (Vitamin D3) 5,000 unitPO DAILY 11/02/18 [History Confirmed 04/09/23] acetaminophen 500 mg tablet 500 mg PO Q6H PRN Pain ##0 10/29/20 [Rx Confirmed 04/09/23] aspirin 325 mg tablet 325 mg PO DAILY 03/25/23 [History Confirmed 04/09/23] doxycycline hyclate 100 mg capsule 100 mg PO BID 14 days #28 caps 03/25/23 [Rx Confirmed 04/09/23] horse chestnut 300 mg capsule 300 mg PO DAILY 30 days #30 caps 03/25/23 [Rx Confirmed 04/09/23] insulin aspart (niacinamide) (U-100) 100 unit/mL subcutaneous solution (Fiasp U- 100 Insulin) See Rx Instructions .Route .COMPLEX 03/25/23 [History Confirmed 04/09/23] cephalexin 500 mg capsule 500 mg PO BID 7 days #14 caps 04/09/23 [Rx] fluconazole 150 mg tablet (Diflucan) 150 mg PO DAILY 1 dose #1 tab 04/09/23 [Rx] Allergies No Known Allergies Allergy (Verified 03/25/23 14:32) Wound/Ulcer Right Lower Leg: Type: Lymphedema (and venous) Thickness: Skin Breakdown Bed Appearance: [place] Percent of Wound Bed Granulated/Red: 100 Percent of Devitalized: 0 Length (cm): 35.0 Width (cm): 40.0 Depth (cm): 0.1 CM Sq: 1400.000 Surrounding Tissue Appearance: Dryness Surrounding Tissue Temp: Warm Drainage Amount: Small Drainage Description: Serosanguineous Drainage Odor: No Odor Left Lower Leg: Type: Lymphedema (and venous) Thickness: Skin Breakdown Bed Appearance: Beefy Red, [place] and Yellow Percent of Wound Bed Granulated/Red: 95 Percent of Devitalized: 5 Length (cm): 2.6 Width (cm): 3.5 Depth (cm): 0.2 CM Sq: 9.100 Surrounding Tissue Appearance: Hyperpigmented Surrounding Tissue Temp: Warm Drainage Amount: Moderate Drainage Description: Serosanguineous Drainage Odor: No Odor Results Height: 5 ft 4 in Weight: 117.934 kg Body Mass Index: 44.6 Assessment/Plan Assessment/Plan (1) Venous stasis ulcer of right lower extremity: Code(s): I83.019 - Varicose veins of right lower extremity with ulcer of unspecified site Status: Chronic (2) Venous stasis ulcer of left lower extremity: Code(s): I83.029 - Varicose veins of left lower extremity with ulcer of unspecified site Status: Chronic (3) Venous stasis of both lower extremities: Code(s): I87.8 - Other specified disorders of veins Status: Chronic (4) Lymphedema of both lower extremities: Code(s): I89.0 - Lymphedema, not elsewhere classified Status: Chronic (5) Obesity: Qualifiers: Obesity type: due to excess calories Obesity classification: adult class 3 (BMI >= 40) Body mass index: BMI 45.0-49.9 Code(s): E66.9 - Obesity, unspecified Status: Chronic (6) Edema: Assessment/Problem Details: ble Qualifiers: Edema type: localized Qualified Code(s): R60.0 - Localized edema Code(s): R60.9 - Edema, unspecified Status: Chronic (7) Diabetes: Qualifiers: Diabetes mellitus type: type 2 Code(s): E11.9 - Type 2 diabetes mellitus without complications Status: Chronic (8) Inflammation: Status: Chronic (9) Hemosiderin 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: Assessment/Problem Details: ble Code(s): L81.8 - Other specified disorders of pigmentation; I83.899 - Varicose veins of unspecified lower extremity with other complications Status: Chronic (10) Cellulitis: Assessment/Problem Details: rle Qualifiers: Site of cellulitis: extremity Laterality: left Code(s): L03.90 - Cellulitis, unspecified Status: Suspected (11) Candidiasis: Assessment/Problem Details: rle Code(s): B37.9 - Candidiasis, unspecified Status: Suspected Time spent with patient Time Spent With Patient (min): 15 Dictated By: Hien Poole APRN DD/ 1000 Signed By: <Electronically signed by WATLER Poole> 04/09/23 1005 [facility] Work Phone: 1(690) 142-159706-22-2023 Progress note Author Hien Poole [facility] April 02, 2023 9:18am Note Date/Time April 02, 2023 9:19 am [facility] [address] [place] [address] Wound Center Provider Note Signed Patient: Magy Castro#: [id number] : 1955 Acct:[id number] Age/Sex: 67 / F Copies to: Sherman Larson,DO Hien Poole APRN~ HPI Date of Visit Date of Visit: Date of Service: 04/02/2023 Time of Service: 09:16 Narrative HPI: 03/25/23 Debbie is a 67 year old female presenting to [facility] wound care for an initial visit for eval and treatment of BLE ulcers that appear d/t venous and lymphedema etiologies. She has been a patient here in the past. Unna wraps will be used along with topical steroid and coconut oil and she will present here fordressings. We spoke about vascular and she did have an ablation with [facility]aj[facility]ae[facility] years ago on the LLE but nothing on the RLE- we spoke about referring back and she said that he seemed disinterested in any further work being done on her legs- I asked if she would be interested in seeing the vascular group in [place] but she wants to wait at this time. Weight loss and elevation and compression and good diabetic control will be needed in order to heal the ulcersas well as treating the root cause as best we all can. She may have an early cellulitis and so oral Doxy was escribed today and horse chestnut was as well for its venous anti-inflammatory properties. Probiotics and coconut oil orally were recommended also for the gut/immune health support provided by both of these. 04/02/23 overall better, is still taking the doxy, orders the same, can return next week, right leg may be healed at that point and she can return to her stockings Subjective Pain Left Lower Leg: Pain Intensity: 0 Right Lower Leg: Pain Intensity: 0 Wound/Ulcer History When did wound start?: July 2022 Mode of Arrival/ Tin Plater: Personal vehicle Lives with:: Spouse Appetite Description: Within Normal Limits Who helps w/ dressing change?: Wound Care Dept Why Do You Need Help?: Can't Reach Ulcer and Limited mobility Smoking Status: Never smoker [facility] Medical History (Updated 04/02/23 @ 09:18 by Hien Poole APRN) Cellulitis Diabetes mellitus, type 2 Hyperlipidemia Peripheral vascular disease Wound, open Surgical History H/O total hip arthroplasty H/O: hysterectomy Hx of appendectomy Hx of cholecystectomy Family History Brother Cancer Social History Smoking Status: Never smoker Substance Use Type: None Grafts History of Graft History of Graft?: No Exam Physical Exam Vital Signs: Temp Pulse Resp BP O2 Del Method 98.2 F 93 H 18 128/80 Room Air 04/02/23 09:04 04/02/23 09:04 04/02/23 09:04 04/02/23 09:04 04/02/23 09:04 Const General: cooperative, comfortable and no acute distress Nutritional Appearance: obese Orientation: alert, awake and oriented x3 Lower/Upper Extremity Exam Vascular Exam-Edema Left Lower Extremity: Edema Type: Lymphedema Right Lower Extremity: Edema Type: Lymphedema Vascular Exam-Pulses Left Brachial: Pulse Assessment Method: NIBP Objective Meds/Allergies Home Medications atorvastatin 10 mg tablet (Lipitor) 10 mg PO Q3-4D hyperlipidemia 01/06/18 [History Confirmed 04/02/23] cyanocobalamin (vitamin B-12) 1,000 mcg tablet (Vitamin B-12) 1,000 mcg PO DAILY01/06/18 [History Confirmed 04/02/23] empagliflozin 25 mg tablet (Jardiance) 25 mg PO DAILY DM 01/06/18 [History Confirmed 04/02/23] insulin glargine 100 unit/mL subcutaneous solution (Lantus U-100 Insulin) 38 unit subcut QHS DM 01/06/18 [History Confirmed 04/02/23] liraglutide 0.6 mg/0.1 mL (18 mg/3 mL) subcutaneous pen injector (Victoza 2- Enoc)1.2 mg subcut QAM DM 01/06/18 [History Confirmed 04/02/23] metformin 1,000 mg tablet (Glucophage) 1,000 mg PO BID DM 01/06/18 [History Confirmed 04/02/23] cholecalciferol (vitamin D3) 125 mcg (5,000 unit) tablet (Vitamin D3) 5,000 unitPO DAILY 11/02/18 [History Confirmed 04/02/23] acetaminophen 500 mg tablet 500 mg PO Q6H PRN Pain ##0 10/29/20 [Rx Confirmed 04/02/23] aspirin 325 mg tablet 325 mg PO DAILY 03/25/23 [History Confirmed 04/02/23] doxycycline hyclate 100 mg capsule 100 mg PO BID 14 days #28 caps 03/25/23 [Rx Confirmed 04/02/23] horse chestnut 300 mg capsule 300 mg PO DAILY 30 days #30 caps 03/25/23 [Rx Confirmed 04/02/23] insulin aspart (niacinamide) (U-100) 100 unit/mL subcutaneous solution (Fiasp U- 100 Insulin) See Rx Instructions .Route .COMPLEX 03/25/23 [History Confirmed 04/02/23] Allergies No Known Allergies Allergy (Verified 03/25/23 14:32) Wound/Ulcer Right Lower Leg: Type: Lymphedema (and venous) Thickness: Skin Breakdown Bed Appearance: Beefy Red, Epithelial Tissue or Bridge, [place] and Yellow Percent of Wound Bed Granulated/Red: 90 Percent of Devitalized: 10 Length (cm): 35.0 Width (cm): 40.0 Depth (cm): 0.1 CM Sq: 1400.000 Surrounding Tissue Appearance: Hyperpigmented Surrounding Tissue Temp: Warm Drainage Amount: Moderate Drainage Description: Serosanguineous Drainage Odor: No Odor Left Lower Leg: Type: Lymphedema (and venous) Thickness: Skin Breakdown Bed Appearance: Beefy Red, Epithelial Tissue or Bridge, [place] and Yellow Percent of Wound Bed Granulated/Red: 50 Percent of Devitalized: 50 Length (cm): 2.6 Width (cm): 3.5 Depth (cm): 0.2 CM Sq: 9.100 Surrounding Tissue Appearance: Bright Red and Hyperpigmented Surrounding Tissue Temp: Warm Drainage Amount: Moderate Drainage Description: Serosanguineous Drainage Odor: No Odor Results Height: 5 ft 4 in Weight: 117.934 kg Body Mass Index: 44.6 Assessment/Plan Assessment/Plan (1) Venous stasis ulcer of right lower extremity: Code(s): I83.019 - Varicose veins of right lower extremity with ulcer of unspecified site Status: Chronic (2) Venous stasis ulcer of left lower extremity: Code(s): I83.029 - Varicose veins of left lower extremity with ulcer of unspecified site Status: Chronic (3) Venous stasis of both lower extremities: Code(s): I87.8 - Other specified disorders of veins Status: Chronic (4) Lymphedema of both lower extremities: Code(s): I89.0 - Lymphedema, not elsewhere classified Status: Chronic (5) Obesity: Qualifiers: Obesity type: due to excess calories Obesity classification: adult class 3 (BMI >= 40) Body mass index: BMI 45.0-49.9 Code(s): E66.9 - Obesity, unspecified Status: Chronic (6) Edema: Assessment/Problem Details: ble Qualifiers: Edema type: localized Qualified Code(s): R60.0 - Localized edema Code(s): R60.9 - Edema, unspecified Status: Chronic (7) Diabetes: Qualifiers: Diabetes mellitus type: type 2 Code(s): E11.9 - Type 2 diabetes mellitus without complications Status: Chronic (8) Inflammation: Status: Chronic (9) Hemosiderin 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: Assessment/Problem Details: ble Code(s): L81.8 - Other specified disorders of pigmentation; I83.899 - Varicose veins of unspecified lower extremity with other complications Status: Chronic (10) Cellulitis: Assessment/Problem Details: rle Qualifiers: Site of cellulitis: extremity Laterality: left Code(s): L03.90 - Cellulitis, unspecified Status: Resolved Time spent with patient Time Spent With Patient (min): 12 Dictated By: Hien Poole APRN DD/ 5 Signed By: <Electronically signed by WALTER Poole> 04/02/23917 [facility] Work Phone: [phone]) 248-392306-14-2023 Progress note Author Hien Poole [facility] March 25, 2023 3:02pm Note Date/Time March 25, 2023 2:58 pm [facility] [address] [place] [address] Wound Center Provider Note Signed Patient: Magy Castro MR#: [id number] : 1955 Acct:[id number] Age/Sex: 67 / F Copies to: Sherman Larson,DO Hien Poole APRN~ HPI Date of Visit Date of Visit: Date of Service: 03/25/2023 Time of Service: 14:52 Narrative HPI: 03/25/23 Debbie is a 67 year old female presenting to [facility] wound care for an initial visit for eval and treatment of BLE ulcers that appear d/t venous and lymphedema etiologies. She has been a patient here in the past. Unna wraps will be used along with topical steroid and coconut oil and she will present here fordressings. We spoke about vascular and she did have an ablation with [facility] years ago on the LLE but nothing on the RLE- we spoke about referring back and she said that he seemed disinterested in any further work being done on her legs- I asked if she would be interested in seeing the vascular group in [place] but she wants to wait at this time. Weight loss and elevation and compression and good diabetic control will be needed in order to heal the ulcersas well as treating the root cause as best we all can. She may have an early cellulitis and so oral Doxy was escribed today and horse chestnut was as well for its venous anti-inflammatory properties. Probiotics and coconut oil orally were recommended also for the gut/immune health support provided by both of these. Subjective Pain Left Lower Leg: Pain Intensity: 0 Right Lower Leg: Pain Intensity: 0 Wound/Ulcer History When did wound start?: July 2022 Mode of Arrival/ Tin Plater: Personal vehicle Lives with:: Spouse Appetite Description: Within Normal Limits Who helps w/ dressing change?: Wound Care Dept Why Do You Need Help?: Can't Reach Ulcer and Limited mobility Smoking Status: Never smoker [facility] Medical History (Updated 03/25/23 @ 14:54 by Hien Poole APRN) Cellulitis Diabetes mellitus, type 2 Hyperlipidemia Peripheral vascular disease Wound, open Surgical History H/O total hip arthroplasty H/O: hysterectomy Hx of appendectomy Hx of cholecystectomy Family History Brother Cancer Social History Smoking Status: Never smoker Substance Use Type: None Grafts History of Graft History of Graft?: No Exam Physical Exam Vital Signs: Temp Pulse Resp O2 Del Method 97.7 F 96 H 18 Room Air 03/25/23 14:32 03/25/23 14:32 03/25/23 14:32 03/25/23 14:32 Const General: cooperative, comfortable and no acute distress Nutritional Appearance: obese Orientation: alert, awake and oriented x3 Lower/Upper Extremity Exam Vascular Exam-Edema Left Lower Extremity: Edema Type: Lymphedema Right Lower Extremity: Edema Type: Lymphedema Vascular Exam-Pulses Left Brachial: Pulse Assessment Method: NIBP Objective Meds/Allergies Home Medications atorvastatin 10 mg tablet (Lipitor) 10 mg PO Q3-4D hyperlipidemia 01/06/18 [History Confirmed 03/25/23] cyanocobalamin (vitamin B-12) 1,000 mcg tablet (Vitamin B-12) 1,000 mcg PO DAILY01/06/18 [History Confirmed 03/25/23] empagliflozin 25 mg tablet (Jardiance) 25 mg PO DAILY DM 01/06/18 [History Confirmed 03/25/23] insulin glargine 100 unit/mL subcutaneous solution (Lantus U-100 Insulin) 38 unit subcut QHS DM 01/06/18 [History Confirmed 03/25/23] liraglutide 0.6 mg/0.1 mL (18 mg/3 mL) subcutaneous pen injector (Victoza 2- Enoc)1.2 mg subcut QAM DM 01/06/18 [History Confirmed 03/25/23] metformin 1,000 mg tablet (Glucophage) 1,000 mg PO BID DM 01/06/18 [History Confirmed 03/25/23] cholecalciferol (vitamin D3) 125 mcg (5,000 unit) tablet (Vitamin D3) 5,000 unitPO DAILY 11/02/18 [History Confirmed 03/25/23] acetaminophen 500 mg tablet 500 mg PO Q6H PRN Pain ##0 10/29/20 [Rx Confirmed 03/25/23] aspirin 325 mg tablet 325 mg PO DAILY 03/25/23 [History Confirmed 03/25/23] doxycycline hyclate 100 mg capsule 100 mg PO BID 14 days #28 caps 03/25/23 [Rx] horse chestnut 300 mg capsule 300 mg PO DAILY 30 days #30 caps 03/25/23 [Rx] insulin aspart (niacinamide) (U-100) 100 unit/mL subcutaneous solution (Fiasp U- 100 Insulin) See Rx Instructions .Route .COMPLEX 03/25/23 [History Confirmed 03/25/23] Allergies No Known Allergies Allergy (Verified 03/25/23 14:32) Wound/Ulcer Right Lower Leg: Type: Lymphedema (and venous) Thickness: Skin Breakdown Bed Appearance: Beefy Red, Epithelial Tissue or Bridge, [place] and Yellow Percent of Wound Bed Granulated/Red: 90 Percent of Devitalized: 10 Length (cm): 35.0 Width (cm): 40.0 Depth (cm): 0.1 CM Sq: 1400.000 Surrounding Tissue Appearance: Hyperpigmented Surrounding Tissue Temp: Warm Drainage Amount: Moderate Drainage Description: Serosanguineous Drainage Odor: No Odor Left Lower Leg: Type: Lymphedema (and venous) Thickness: Skin Breakdown Bed Appearance: Beefy Red, Epithelial Tissue or Bridge, [place] and Yellow Percent of Wound Bed Granulated/Red: 50 Percent of Devitalized: 50 Length (cm): 4.8 Width (cm): 7.2 Depth (cm): 0.2 CM Sq: 34.560 Surrounding Tissue Appearance: Bright Red and Hyperpigmented Surrounding Tissue Temp: Warm Drainage Amount: Moderate Drainage Description: Serosanguineous Drainage Odor: No Odor Results Height: 5 ft 4 in Weight: 117.934 kg Body Mass Index: 44.6 Assessment/Plan Assessment/Plan (1) Venous stasis ulcer of right lower extremity: Code(s): I83.019 - Varicose veins of right lower extremity with ulcer of unspecified site Status: Chronic (2) Venous stasis ulcer of left lower extremity: Code(s): I83.029 - Varicose veins of left lower extremity with ulcer of unspecified site Status: Chronic (3) Venous stasis of both lower extremities: Code(s): I87.8 - Other specified disorders of veins Status: Chronic (4) Lymphedema of both lower extremities: Code(s): I89.0 - Lymphedema, not elsewhere classified Status: Chronic (5) Obesity: Qualifiers: Obesity type: due to excess calories Obesity classification: adult class 3 (BMI >= 40) Body mass index: BMI 45.0-49.9 Code(s): E66.9 - Obesity, unspecified Status: Chronic (6) Edema: Assessment/Problem Details: ble Qualifiers: Edema type: localized Qualified Code(s): R60.0 - Localized edema Code(s): R60.9 - Edema, unspecified Status: Chronic (7) Diabetes: Qualifiers: Diabetes mellitus type: type 2 Code(s): E11.9 - Type 2 diabetes mellitus without complications Status: Chronic (8) Inflammation: Status: Chronic (9) Hemosiderin 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: Assessment/Problem Details: ble Code(s): L81.8 - Other specified disorders of pigmentation; I83.899 - Varicose veins of unspecified lower extremity with other complications Status: Chronic (10) Cellulitis: Assessment/Problem Details: rle Qualifiers: Site of cellulitis: extremity Laterality: left Code(s): L03.90 - Cellulitis, unspecified Status: Suspected Time spent with patient Time Spent With Patient (min): 20 Dictated By: Hien Poole APRN DD/ 1452 Signed By: <Electronically signed by WALTER Poole> 03/25/23 1502 [facility] Work Phone: 1(264) 350-801805-11-2023 Nurse Note* Lakhwinder Payan RN - 02/19/2023 2:50 PM EDT PATIENT EDUCATION TOPIC: PROCEDURE / SURGERY: Post Procedure Teaching: EUS PATIENT NAME: Magy Castro PATIENT LOCATION: Room/bed info not found READINESS TO LEARN COGNITIVE ABILITY: Alert and oriented MOTIVATION TO LEARN: Eager FAMILY SUPPORT: Unable to assess - Family not present INSTRUCTION PROVIDED TO: Patient PATIENT LEARNS BEST BY: Written Instruction - Hand-outs Verbal Instruction FACTORS AFFECTING LEARNING: None PHYSICAL LIMITATIONS AFFECTING LEARNING: None LEARNING RESPONSE DIAGNOSIS: ADULT: EUS PATIENT/FAMILY RESPONSE: Verbalizes understanding of: POST-PROCEDURE INSTRUCTIONS-Correct actions to take to reduce post procedure complications METHOD OF INSTRUCTION: Written instruction - handouts Verbal instruction FOLLOW-UP PLAN: Complete - No need for follow-up INSTRUCTIONAL AIDS USED: NA SUPPLEMENTAL MATERIAL PROVIDED TO PATIENT: None REFERRAL (RECOMMENDATION): None Electronically Signed By: Lakhwinder Payan * Ekta Banegas RN - 02/19/2023 1:47 PM EDT PATIENT EDUCATION TOPIC: PROCEDURE / SURGERY: Pre Procedure Teaching: Surgical Safety Principles PATIENT NAME: Magy Castro PATIENT LOCATION: Room/bed info not found READINESS TO LEARN COGNITIVE ABILITY: Alert and oriented MOTIVATION TO LEARN: [facility] FAMILY SUPPORT: Unable to assess - Family not present INSTRUCTION PROVIDED TO: Patient PATIENT LEARNS BEST BY: Individual Instruction FACTORS AFFECTING LEARNING: None PHYSICAL LIMITATIONS AFFECTING LEARNING: None LEARNING RESPONSE DIAGNOSIS: ADULT: pancreatic cyst PATIENT/FAMILY RESPONSE: Verbalizes understanding of: PRE-PROCEDURE INSTRUCTIONS-Correct action to take to follow pre-procedure instructions METHOD OF INSTRUCTION: Individual instruction FOLLOW-UP PLAN: Complete - No need for follow-up INSTRUCTIONAL AIDS USED: NA SUPPLEMENTAL MATERIAL PROVIDED TO PATIENT: None REFERRAL (RECOMMENDATION): None [facility] History and physical note * Lior Linton MD - 02/19/2023 12:30 PM EDT PROCEDURAL SEDATION HISTORY AND PHYSICAL EXAM SERVICE DATE: 02/19/2023 SERVICE TIME: 2:04 PM Subjective HPI: This is a 67 year old female who presents for Endoscopic ultrasound with fine needle aspiration PAST ANESTHESIA HISTORY: No history of adverse event PAST MEDICAL HISTORY Diagnosis Date Diabetes (HCC) Mixed hyperlipidemia 12/21/2015 Morbid obesity (HCC) 12/21/2015 Periumbilical hernia containing loop of small bowel Pulmonary emboli (HCC) right lower lobe Pulmonary nodules bilateral subcentimeter PAST SURGICAL HISTORY Procedure Laterality Date APPENDECTOMY RSO? LAPAROSCOPY SURG CHOLECYSTECTOMY PAST SURGICAL HISTORY OF 11/30/15 D&C, hysteroscopy TUBAL LIGATION HX Prior to Admission medications as of 02/19/23 1345 Medication Sig Last Dose Taking insulin glargine (LANTUS) 100 unit/mL (3 mL) inpn Inject 40 Units subcutaneously daily at bedtime. 02/18/2023 Yes FIASP FLEXTOUCH U-100 INSULIN 100 unit/mL (3 mL) pen aspirin, enteric coated (ASPIRIN, ENTERIC COATED) 81 mg EC tablet Aspirin (Aspirin Low Dose) 81 mg Tablet,Delayed Release (Dr/Ec) Active 2 TAB PO Daily December 07, 2018 11:02am 02/15/2023 cyanocobalamin (VITAMIN B-12) 1,000 mcg tab Cyanocobalamin (Vitamin B-12) (Vitamin B-12) 1,000 mcg Tablet Active 1000 MCG PO Daily January 06, 2018 9:27am 02/15/2023 VITAMIN B COMPLEX ORAL Take by mouth q 24 HR. 02/15/2023 INV VITAMIN D3 5000 UNITS CAPSULE (IRB 19-1548) Take 5,000 Units by mouth once daily. For Investigational Drug Use Only. PI: Blanca Swan, PhD. Take one capsule by mouth daily for 3 months prior to surgery and 3 months after surgery. 02/15/2023 iv contrast (will be provided with radiology test) CT Chest ABD/PEL-Inject, intravenously, once for1 dose.No IV access, insert saline lock prior to the beginning of sedation, infusion, injection of imaging exam. Discontinue saline lock post exam. If Pt. has a central line or IVAD, may access for administration according to line specific nursing protocol. Once exam is complete flush line and de-access according to line specific nursing protocol in the CT contrast administration guidelines link. enteric contrast (will be provided with radiology test) For CT CHESTABD/PEL W IVCON Routine order Administer, As Directed One Time Only, via Oral, Rectal, both Oral and Rectal, Enteric Tube, Stoma orIndwelling Catheter, Enteric Contrast as designated per enteric contrast guidelines iv contrast (will be provided with radiology test) CT Chest ABD/PEL-Inject, intravenously, once for1 dose.No IV access, insert saline lock prior to the beginning of sedation, infusion, injection of imaging exam. Discontinue saline lock post exam. If Pt. has a central line or IVAD, may access for administration according to line specific nursing protocol. Once exam is complete flush line and de-access according to line specific nursing protocol in the CT contrast administration guidelines link. enteric contrast (will be provided with radiology test) For CT CHESTABD/PEL W IVCON Routine order Administer, As Directed One Time Only, via Oral, Rectal, both Oral and Rectal, Enteric Tube, Stoma orIndwelling Catheter, Enteric Contrast as designated per enteric contrast guidelines metFORMIN (GLUCOPHAGE) 1,000 mg tablet Take 1,000 mg by mouth twice daily with meals. 02/15/2023 empagliflozin 25 mg tab Take 25 mg by mouth once daily. liraglutide (VICTOZA) 0.6 mg/0.1 mL (18 mg/3 mL) pnij Inject 1.8 mg subcutaneously once daily. 02/15/2023 atorvastatin (LIPITOR) 10 mg tablet Take 10 mg by mouth once daily. Every other day per MD 02/15/2023 ALLERGIES No Known Allergies Objective PHYSICAL EXAM: The remainder of the physical exam is noncontributory. AIRWAY: LUNGS: CARDIAC: , Assessment/Plan ASA Class: Active Problems: * No active hospital problems. * Resolved Problems: * No resolved hospital problems. * Medication and Non-Pharmacologic VTE Prophylaxis/Anticoagulants VTE Prophylaxis: VTE prophylaxis appropriate Provisional Diagnosis/Treatment Plan: Pancreatic cyst SIGNATURE: Lior Linton MD PATIENT NAME: Magy Castro DATE: February 19, 2023 TIME: 2:04 PM Source Note - Christophe Shaffer APRN.[facility] - 02/02/2023 8:00 AM EDT Images from the original note were not included. PREANESTHESIA CONSULT CLINIC TELEHEALTH VISIT Patient has been identified by name and date of : Yes This is a virtual visit using [employer] video visit. It require patient-provider interaction for the medical decision making as documented below. I have communicated my name and active licensure. The patient's identity and physical location were verified at the time of this visit. The patient has been informed of the risk and benefits of and alternatives to treatment through a remote evaluation andconsents to proceed with the evaluation remotely. Reason for contact: PACC visit Accompanied by: Self Scheduled Surgery: EGD with Dr. Lior Linton on 02/19/2023 Subjective CHIEF COMPLAINT: No chief complaint on file. HPI: This is a 67 year old female who presents for EGD seen for PACC. She states having a pancreatic cyst and her brother has a history of pancreatic cancer. Per epic note pancreatic cyst is 12 mm insize and likely neoplasm per MRI. She denies any pain. Denies any fever, chills, nausea, vomiting, SOB, dizziness, lightheadedness, palpitations, syncope, chest pain or abdominal pain. She has elected to proceed with the surgical procedure. ACTIVE PROBLEM LIST Type 2 Diabetes Mellitus Without Complication (Hcc) Endometrial Ca (Hcc) Mixed Hyperlipidemia Morbid Obesity (Hcc) Endometrial Cancer (Hcc) Pulmonary Embolus (Hcc) PAST MEDICAL HISTORY Diagnosis Date Diabetes (HCC) Mixed hyperlipidemia 12/21/2015 Morbid obesity (HCC) 12/21/2015 Periumbilical hernia containing loop of small bowel Pulmonary emboli (HCC) right lower lobe Pulmonary nodules bilateral subcentimeter PAST SURGICAL HISTORY Procedure Laterality Date APPENDECTOMY RSO? LAPAROSCOPY SURG CHOLECYSTECTOMY PAST SURGICAL HISTORY OF 11/30/15 D&C, hysteroscopy TUBAL LIGATION HX FAMILY HISTORY Problem Relation Age of Onset Pancreatic Cancer Brother Stroke Paternal Grandmother other (Leukemia [Other]) Paternal Grandfather Crohn's Disease Son Colon Cancer No Family History Social History Tobacco Use Smoking status: Never Smokeless tobacco: Never Vaping Use Vaping Use: Never used Substance Use Topics Alcohol use: No Drug use: No ALLERGIES No Known Allergies MEDICATIONS: Current Outpatient Medications Medication Sig FIASP FLEXTOUCH U-100 INSULIN 100 unit/mL (3 mL) pen aspirin, enteric coated (ASPIRIN, ENTERIC COATED) 81 mg EC tablet Aspirin (Aspirin Low Dose) 81 mg Tablet,Delayed Release (Dr/Ec) Active 2 TAB PO Daily December 07, 2018 11:02am cyanocobalamin (VITAMIN B-12) 1,000 mcg tab Cyanocobalamin (Vitamin B-12) (Vitamin B-12) 1,000 mcg Tablet Active 1000 MCG PO Daily January 06, 2018 9:27am VITAMIN B COMPLEX ORAL Take by mouth q 24 HR. INV VITAMIN D3 5000 UNITS CAPSULE (IRB [id number]) Take 5,000 Units by mouth once daily. For Investigational Drug Use Only. PI: Blanca Swan, PhD. Take one capsule by mouth daily for 3 months prior to surgery and 3 months after surgery. metFORMIN (GLUCOPHAGE) 1,000 mg tablet Take 1,000 mg by mouth twice daily with meals. empagliflozin 25 mg tab Take 25 mg by mouth once daily. liraglutide (VICTOZA) 0.6 mg/0.1 mL (18 mg/3 mL) pnij Inject 1.8 mg subcutaneously once daily. insulin glargine (LANTUS) 100 unit/mL (3 mL) inpn Inject 40 Units subcutaneously daily at bedtime. atorvastatin (LIPITOR) 10 mg tablet Take 10 mg by mouth once daily. Every other day per MD iv contrast (will be provided with radiology test) CT Chest ABD/PEL-Inject, intravenously, once for1 dose.No IV access, insert saline lock prior to the beginning of sedation, infusion, injection of imaging exam. Discontinue saline lock post exam. If Pt. has a central line or IVAD, may access for administration according to line specific nursing protocol. Once exam is complete flush line and de-access according to line specific nursing protocol in the CT contrast administration guidelines link. enteric contrast (will be provided with radiology test) For CT CHESTABD/PEL W IVCON Routine order Administer, As Directed One Time Only, via Oral, Rectal, both Oral and Rectal, Enteric Tube, Stoma orIndwelling Catheter, Enteric Contrast as designated per enteric contrast guidelines iv contrast (will be provided with radiology test) CT Chest ABD/PEL-Inject, intravenously, once for1 dose.No IV access, insert saline lock prior to the beginning of sedation, infusion, injection of imaging exam. Discontinue saline lock post exam. If Pt. has a central line or IVAD, may access for administration according to line specific nursing protocol. Once exam is complete flush line and de-access according to line specific nursing protocol in the CT contrast administration guidelines link. enteric contrast (will be provided with radiology test) For CT CHESTABD/PEL W IVCON Routine order Administer, As Directed One Time Only, via Oral, Rectal, both Oral and Rectal, Enteric Tube, Stoma orIndwelling Catheter, Enteric Contrast as designated per enteric contrast guidelines No current facility-administered medications for this visit. COVID VACCINATION STATUS: Fully vaccinated REVIEW OF SYSTEMS: Pain Assessment: General: + Morbid obesity No weight loss, malaise or fevers. Neuro: No history of TIA's, stroke, BRIM SETTER tumor, impaired sensorium, hemiplegia, paraplegia or quadraplegia. No neurological symptoms or problems. Respiratory: No history of current cough or dyspnea, or pneumonia in the past 6 weeks. No history of respiratory/pulmonary symptoms or problems. Cardiovascular: Positive for: DVT/PE, HLD, Negative for Recent [place], Angina, Arrhythmia, CAD, Chest Pain, CHF, HTN, PVD, Valvular Heart Disease GI: SEE HPI Negative for GERD, Nausea, Vomiting, Abdominal pain, Hepatitis, Liver disease, Pancreatitis, Colon cancer, Rectal cancer : No history of dysuria, frequency or incontinence,, stones or chronic kidney disease REGISTRATION CLERK: Negative for abnormal vaginal bleeding, abnormal vaginal discharge. : Denies, No LMP recorded. Patient has had a hysterectomy. Endocrine: +DM 2 Diabetes Mellitus on insulin, Diabetes Mellitus on oral agent Hematology: No history of bleeding or clotting disorder. Pt is not taking anti- coagulation or platelet medications. No history of hematological symptoms or problems. Oncology: Endometrial cancer 7 years ago treated surgically, chemotherapy and radiation Psych: No history of psychiatric symptoms or problems. Musculoskeletal: Joint pain Left knee Skin: Negative for lesions, rash and itching. Objective PHYSICAL EXAM: Ht 5' 3.5 (1.61m) Wt 260 lb (117.9kg) BMI 45.33 kg/(m^2). VIDEO EXAM: (if completed, performed via video enabled technology) GENERAL: alert and appropriate, in no distress, well-hydrated, well nourished, and happy, smiling, interactive SKIN: no rash noted HEAD: normocephalic, no abnormality or lesion noted EYES: no injection and visual acuity is grossly normal OROPHARYNX: moist mucus membranes NECK: full ROM, no cervical LNs noted RESPIRATORY: breathing non-labored CHEST: equal chest rise with normal respiratory effort HEART: Patient palpated radial pulse, regular when counted aloud by patient NEUROLOGIC: no obvious deficit Diagnostic tests reviewed for today's visit: Lab Value Units Date High Low HB No results within date range. HCT No results within date range. WBC No results within date range. PLT No results within date range. NA No results within date range. K No results within date range. GLUC No results within date range. BUN No results within date range. CREAT 0.59 mg/dL 09/11/2022 0.96 0.58 PTSEC No results within date range. INR No results within date range. APTT No results within date range. ALT No results within date range. AST No results within date range. TBILI No results within date range. TSH No results within date range. Lab Value Units Date High Low HCGQT No results within date range. UHCG No results within date range. HCG, BODY* No results within date range. Lab Value Units Date High Low ABORHD No results within date range. ABSCREEN No results within date range. Labs OSH No results found for: HBA1C Most recent labs. Patient will have labs and A1C faxed from OSH Most recent EKG: normal sinus rhythm, normal axis, normal intervals Impression/Recommendations ASSESSMENT: Type 2 diabetes mellitus without complication (HCC) Managed with liraglutide (VICTOZA, metFORMIN (GLUCOPHAGE), Fiasp injections and insulin glargine (LANTUS) Follow by endo Dr. Rosanne Dumont OS Patient reports last A1C was 7.4, to be drawn next week at Endo appointment Reports fasting BS 109-150 Mixed hyperlipidemia Managed with atorvastatin (LIPITOR) and ASA Pulmonary embolus (HCC) History 5 years ago treated with Xarelto previously Endometrial cancer (HCC) Diagnosed with endometrial cancer stage II in 2016. She was treated surgically, chemotherapy and radiation. Morbid obesity (HCC) Body mass index is 45.33 kg/m . METS: Walk indoors, such as around the house (1.75 METs) Do light work around the house, such as dusting or washing dishes (2.70 METs) Take care of self; that is eating, dressing, bathing, using the toilet (2.75 METs) Do moderate work around the house such as vacuuming, sweeping floors, or carrying in groceries (3.50 METs) Climb a flight of stairs or walk up a hill (5.50 METs) Patient denies any chest pain or undue shortness of breath with the above physical activity. ASA Class: 3 ANESTHESIA FINDINGS: Intubation History: No history of difficult intubation Significant Anesthesia Considerations: None Airway Exam: General: Morbid obesity Mallampati Score is CLASS II ULBT: Class I - Lower incisors can bite the upper lip above the gallo line Neck: Normal appearance and function, Distance from hyoid to mentum during neck extension is at least 3 finger breaths Mouth: Normal tongue size and Mouth opening greater than 2 finger breaths Dentition: Implant right front tooth and Missing teeth lower bilateral molars Airway History: No abnormal airway history STOP BANG Score: Criteria: Snoring BMI > 35 Age over 50 (67 year old) Score = 3 PLAN: Pt optimally prepared for surgery, pending day of surgery exam CONSULTS: Patient does not require consults for optimization at this time. The Following Tests/Procedures Have Been Initiated: Labs not indicated per PACC protocol, EKG not indicated per PACC protocol Planned Anesthetic: Per anesthesia choice Instructions Given to Patient: Patient given verbal instructions and voices comprehension and compliance. Copy sent electronically via My Chart, email, or mobile device. I spent more than 21-40 minutes [id number] with the patient and over half the time was devoted tocounseling and/or coordination of care. This is a virtual visit. It required patient-provider interaction for the medical decision making as documented above. SIGNATURE: Christophe Shaffer APRN.CNP PATIENT NAME: Magy Castro DATE: February 02, 2023 TIME: 8:45 AM PAGER/CONTACT #: documented in [facility] Evaluation note* Encounter Date Diagnosis Assessment Notes Treatment Notes Treatment Clinical Notes February, Type 2 diabetes mellitus (ICD-10 - E11.9) Managing type 2 diabetes material was published 1. Uncontrolled, Type 2 diabetes A1C 7.3% 2. Blood glucose levels improved. According to [employer] 2 cgm download 01/28/2023-02/10/2023 Avg glucose 160. >250-2%, >180-23%, 70-180-75%, <70-0%, <54-0%. CV 24.7. Reviewed download with pt, readings above target postpranidal. Reviewed with pt change carb ratio from 1:7 to 1:6 carb ratio. Reviewed dosing with pt. 5 minutes ac for improved postprandial glycemia. Isolated incidence of hypoglycemia. Reviewed with pt how to titrate basal/meal insulin according to fasting am/meal to meal glucose pattern. Pt verbalizes understanding. 3. Patient is alert, oriented and receptive to making changes or counseling. Notes: Seen for an assessment of current glucose pattern, changes in treatment plan, counseling and coordination of care related to diabetes, risks, and benefits of treatment, medications, and side effects. TOPICS REVIEWED: 1. Time was spent reviewing: a. Basic concepts of diabetes, progressive beta cell , concepts of basal/bolus/correc tive insulin requirements. Basal: The goal is fasting blood glucose of 90-130mg. IF fasting blood glucose starts to run under 100mg 3x's/ week, decrease dose by 10%. Bolus: The goal is to hold the blood glucose level steady meal to meal. If pt. is going to have increased physical activity after a meal, decrease the schedule meal dose prior to the activity by 30-50%. If pt. skips a meal do not take this dose. Correction: The goal is to correct an elevated glucose back into the 100-150mg range b. Nutrition: Concepts of healthy diet, encouraged to decrease saturated fat in diet and increase non-starchy vegetables and fruits in diet. BMI: Pt. needs to select one small change to decrease caloric intake or increase physical activity to help decrease weight. c. Correct treatment of hypoglycemia, carry a glucose source at all times on your person, in vehicles, and at bedside. Can use glucose tablets/4, four ounces of pop or juice equal to 15 G of carbohydrate. Blood glucose should be 100 mg/dl or higher when driving. d. ADA glucose goals for age and medical complexity reviewed e. Patient questions addressed 2. Activity/exercise: Encouraged to start any form of physical activity. Start low level and increase slowly to a minimal goal of 150 minutes/week. Limit activity to what is allowed by other issues such as cardiac, pulmonary or orthopedic restrictions. 3. Standards of care: Reminded to have an annual dilated eye exam, A1C every 3 months, urine testing for microalbumin once/year, check feet daily and report any cuts or sores that do not appear to be healing. 4. Meter: Plan to check blood glucose: Please check blood glucose levels 4 times/day. Back to back meals reveal effectiveness of bolus dosing. The blood glucose data is used to determine insulin doses,and confirm symptoms of hypoglcyemia and hyperglcyemia. 5. [facility]. Contact office if any issues or concerns with patterns of hypoglycemia, hyperglycemia, or diabetes medication issues. 6. Prescriptions: [employer] MAIL ORDER/CARLOS PIZANO: None at this time. 7. Prescriptions will not be filled unless you are compliant with follow up appointments or have a follow up appointment scheduled as ordered by your provider. Refills should be requested at the time of your visit. February, Dietary counseling and surveillance (ICD-10 - Z71.3) Eat well, exercise well, be well: dietary and fitness guidelines material was published February, Hyperlipidemia (ICD-10 - E78.5) Managing your cholesterol material was published 03/2022 ldl 74- at goal- on statin. February, HTN (hypertension) (ICD-10 - I10) High blood pressure material was published February, emt 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 current use of insulin (ICD-10 - Z79.4) February, B12 deficiency (ICD-10 - E53.8) Good food sources of vitamin B12 material was published 03/2022 Vit b12 >1400 February, BMI 45.0-49.9, adult (ICD-10 - Z68.42) Setting weight-loss goals material was published [employer] Other [id number] Miscellaneous Notes* Telephone Encounter - Orville Zamarripa LPN - 02/04/2023 11:44 AM EDTSummary: External Lab Results Scanned into patients chart documented in [facility] Miscellaneous Notes* Telephone Encounter - Heidi Parson RN - 02/03/2023 1:19 PM EDT Attempted to call pt, no answer. Left detailed voice msg regarding msg below. Instructed to call back with any questions. Heidi Parson RN * Telephone Encounter - Lior Linton MD - 02/03/2023 7:22 AM EDT MRCP images were reviewed. The images were downloaded to [facility] and the MRI was done at [facility]. Agree with the findings of the report. Cystic lesion in the body of the pancreas measuring around 12 mm lobulated without obvious communication with the pancreatic duct. This could represent mucinous cystadenoma versus IPMN. EUS is scheduled 02/19/2023. Lior Linton MD * Telephone Encounter - Heidi Parson RN - 01/22/2023 12:18 PM EDT MRI images available for review. Heidi Parson RN ----- Message ----- From: Heidi Parson RN Sent: 01/13/2023 10:46 AM EDT To: Heidi Parson RN Spoke with pt. [facility] and send to our office. Heidi Parson RN ----- Message ----- From: Lior Linton MD Sent: 01/12/2023 5:41 PM EDT To: MARCEL Love: Please let me know when the MRCP disc is loaded into [employer] for my review. documented in this encounterWay[facility]04-24-2023 Instructions* Patient Instructions* Christophe Shaffer APRN.[facility]MI[facility]YS[facility] - 02/02/2023 8:36 AM EDT PATIENT PREOPERATIVE INSTRUCTIONS Lior Linton MD has scheduled you for your procedure at this surgery center: [facility]: [phone] --[id number] [address]. Please check in on the1st floor at registration desk 6. Please read below carefully for your personalized instructions. Dietary Restrictions: - No solid food after midnight. - You may have 12 ounces of clear liquids (water, clear juices such as apple juice or gatorade, carbonated beverages, clear tea, black coffee, jello) until 2 hours before scheduled arrival at facility. Is Patient Diabetic:Yes Preoperative Instructions for Patient's with Diabetes Mellitus Diabetic Medication Instructions:Please take the following meds at your usual dose the day before surgery. DO NOT TAKE THE MORNING OF SURGERY; Byetta, Bydureon, Trajenta, Symlin, Victoza, Trulicity, Metformin, Actos/Pioglitazone and Amaryl/Glimepiride For the following meds, please HOLD 3 DAYS PRIOR TO SURGERY: Canagliflozin/Invokana, Dapagliflozin/Farxiga and Empagliflozin/Jardiance Do not take FIASP FLEXTOUCH the morning of surgery Insulin Medication Instructions:For the following medication, take 75% of your usual dose the evening before surgery. DO NOT TAKE ON THE MORNING OF SURGERY: Basaglar, Lantus, Levemir, Rougeo and Tresiba Medications: Unless instructed differently below, stay on all of your medications until your surgery. Approved medications to take the morning of surgery with a sip of water: None If you start any new medications after today's visit, please contact the surgeon's office. Blood Thinning Medications: - Stop NSAIDS (Ibuprofen, Advil, Aleve, Motrin, Celebrex, Mobic, etc.) 7 days before surgery, as directed by your surgeon. - Stop Aspirin 7 days before surgery, as directed by your surgeon. - Stop Vitamin E, ALL multi-vitamins, herbals and dietary supplements 7 days before surgery. - You may take Tylenol (Acetaminophen) or any of your pain medications that do not contain aspirin or NSAIDS as needed. Important Reminders: - Candy, mints, and tobacco products are NOT permitted the morning of surgery. - Hearing aids, dentures and glasses may be worn the morning of surgery. - NO jewelry, body piercings, makeup, hairpins or contacts are to be worn the day of surgery. If you develop symptoms such as a fever, cold, or flu, or have other changes to your health within TWO DAYS of scheduled surgery or the morning of surgery, please contact the surgery center above. Personal Belongings: -Please have photo ID and insurance cards. -If you do not have a copy of advance directives on file with us, please bring a copy with you on the day of surgery. - Leave ALL valuables and money at home or with family members. For Outpatient Procedures: - YOU MUST HAVE A RESPONSIBLE SENIOR TECHNOLOGIST TAKE YOU HOME. A BUSGIRL OR MEDICAL DEVICE ASSEMBLER CANNOT BE MADE A RESPONSIBLE SENIOR TECHNOLOGIST. - We recommend that a responsible person stays with you overnight to take care of you. - You cannot stay in a hotel alone after outpatient surgery. You will not be permitted to have yoursurgery, if you do not have someone to take care of you. Arrival Time for Surgery: - The Surgery Center or hospital where you are having surgery will call the afternoon before surgery (or Thursday for Thursday surgery) with a scheduled arrival time. - If you have not heard by 4 pm, please contact the surgery center above. Please be aware that emergency situations arise, which may delay or change your surgical time. If this happens, we will notify you as soon as possible and regret any inconvenience. If you already have an Advance Directive, please fax a copy to [phone] or email to for it to be added to your chart. If you do not have an Advance Directive, you can find the appropriate form and more information at [email or web address]. We recommend that youcomplete the Advance Directive form found on the website and bring it with you the day of your surgery. It can be witnessed and scanned into your chart that day. Christophe Shaffer APRN.CNP documented [facility] History and physical note * Christophe Shaffer APRN.CNP - 02/02/2023 8:00 AM EDT Images from the original note were not included. PREANESTHESIA CONSULT CLINIC TELEHEALTH VISIT Patient has been identified by name and date of : Yes This is a virtual visit using [employer] video visit. It require patient-provider interaction for the medical decision making as documented below. I have communicated my name and active licensure. The patient's identity and physical location were verified at the time of this visit. The patient has been informed of the risk and benefits of and alternatives to treatment through a remote evaluation andconsents to proceed with the evaluation remotely. Reason for contact: PACC visit Accompanied by: Self Scheduled Surgery: EGD with Dr. Lior Linton on 02/19/2023 Subjective CHIEF COMPLAINT: No chief complaint on file. HPI: This is a 67 year old female who presents for EGD seen for PACC. She states having a pancreatic cyst and her brother has a history of pancreatic cancer. Per epic note pancreatic cyst is 12 mm insize and likely neoplasm per MRI. She denies any pain. Denies any fever, chills, nausea, vomiting, SOB, dizziness, lightheadedness, palpitations, syncope, chest pain or abdominal pain. She has elected to proceed with the surgical procedure. ACTIVE PROBLEM LIST Type 2 Diabetes Mellitus Without Complication (Hcc) Endometrial Ca (Hcc) Mixed Hyperlipidemia Morbid Obesity (Hcc) Endometrial Cancer (Hcc) Pulmonary Embolus (Hcc) PAST MEDICAL HISTORY Diagnosis Date Diabetes (HCC) Mixed hyperlipidemia 12/21/2015 Morbid obesity (HCC) 12/21/2015 Periumbilical hernia containing loop of small bowel Pulmonary emboli (HCC) right lower lobe Pulmonary nodules bilateral subcentimeter PAST SURGICAL HISTORY Procedure Laterality Date APPENDECTOMY RSO? LAPAROSCOPY SURG CHOLECYSTECTOMY PAST SURGICAL HISTORY OF 11/30/15 D&C, hysteroscopy TUBAL LIGATION HX FAMILY HISTORY Problem Relation Age of Onset Pancreatic Cancer Brother Stroke Paternal Grandmother other (Leukemia [Other]) Paternal Grandfather Crohn's Disease Son Colon Cancer No Family History Social History Tobacco Use Smoking status: Never Smokeless tobacco: Never Vaping Use Vaping Use: Never used Substance Use Topics Alcohol use: No Drug use: No ALLERGIES No Known Allergies MEDICATIONS: Current Outpatient Medications Medication Sig FIASP FLEXTOUCH U-100 INSULIN 100 unit/mL (3 mL) pen aspirin, enteric coated (ASPIRIN, ENTERIC COATED) 81 mg EC tablet Aspirin (Aspirin Low Dose) 81 mg Tablet,Delayed Release (Dr/Ec) Active 2 TAB PO Daily December 07, 2018 11:02am cyanocobalamin (VITAMIN B-12) 1,000 mcg tab Cyanocobalamin (Vitamin B-12) (Vitamin B-12) 1,000 mcg Tablet Active 1000 MCG PO Daily January 06, 2018 9:27am VITAMIN B COMPLEX ORAL Take by mouth q 24 HR. INV VITAMIN D3 5000 UNITS CAPSULE (IRB 19-1548) Take 5,000 Units by mouth once daily. For Investigational Drug Use Only. PI: Blanca Swan, PhD. Take one capsule by mouth daily for 3 months prior to surgery and 3 months after surgery. metFORMIN (GLUCOPHAGE) 1,000 mg tablet Take 1,000 mg by mouth twice daily with meals. empagliflozin 25 mg tab Take 25 mg by mouth once daily. liraglutide (VICTOZA) 0.6 mg/0.1 mL (18 mg/3 mL) pnij Inject 1.8 mg subcutaneously once daily. insulin glargine (LANTUS) 100 unit/mL (3 mL) inpn Inject 40 Units subcutaneously daily at bedtime. atorvastatin (LIPITOR) 10 mg tablet Take 10 mg by mouth once daily. Every other day per MD iv contrast (will be provided with radiology test) CT Chest ABD/PEL-Inject, intravenously, once for1 dose.No IV access, insert saline lock prior to the beginning of sedation, infusion, injection of imaging exam. Discontinue saline lock post exam. If Pt. has a central line or IVAD, may access for administration according to line specific nursing protocol. Once exam is complete flush line and de-access according to line specific nursing protocol in the CT contrast administration guidelines link. enteric contrast (will be provided with radiology test) For CT CHESTABD/PEL W IVCON Routine order Administer, As Directed One Time Only, via Oral, Rectal, both Oral and Rectal, Enteric Tube, Stoma orIndwelling Catheter, Enteric Contrast as designated per enteric contrast guidelines iv contrast (will be provided with radiology test) CT Chest ABD/PEL-Inject, intravenously, once for1 dose.No IV access, insert saline lock prior to the beginning of sedation, infusion, injection of imaging exam. Discontinue saline lock post exam. If Pt. has a central line or IVAD, may access for administration according to line specific nursing protocol. Once exam is complete flush line and de-access according to line specific nursing protocol in the CT contrast administration guidelines link. enteric contrast (will be provided with radiology test) For CT CHESTABD/PEL W IVCON Routine order Administer, As Directed One Time Only, via Oral, Rectal, both Oral and Rectal, Enteric Tube, Stoma orIndwelling Catheter, Enteric Contrast as designated per enteric contrast guidelines No current facility-administered medications for this visit. COVID VACCINATION STATUS: Fully vaccinated REVIEW OF SYSTEMS: Pain Assessment: General: + Morbid obesity No weight loss, malaise or fevers. Neuro: No history of TIA's, stroke, BRIM SETTER tumor, impaired sensorium, hemiplegia, paraplegia or quadraplegia. No neurological symptoms or problems. Respiratory: No history of current cough or dyspnea, or pneumonia in the past 6 weeks. No history of respiratory/pulmonary symptoms or problems. Cardiovascular: Positive for: DVT/PE, HLD, Negative for Recent [place], Angina, Arrhythmia, CAD, Chest Pain, CHF, HTN, PVD, Valvular Heart Disease GI: SEE HPI Negative for GERD, Nausea, Vomiting, Abdominal pain, Hepatitis, Liver disease, Pancreatitis, Colon cancer, Rectal cancer : No history of dysuria, frequency or incontinence,, stones or chronic kidney disease REGISTRATION CLERK: Negative for abnormal vaginal bleeding, abnormal vaginal discharge. : Denies, No LMP recorded. Patient has had a hysterectomy. Endocrine: +DM 2 Diabetes Mellitus on insulin, Diabetes Mellitus on oral agent Hematology: No history of bleeding or clotting disorder. Pt is not taking anti- coagulation or platelet medications. No history of hematological symptoms or problems. Oncology: Endometrial cancer 7 years ago treated surgically, chemotherapy and radiation Psych: No history of psychiatric symptoms or problems. Musculoskeletal: Joint pain Left knee Skin: Negative for lesions, rash and itching. Objective PHYSICAL EXAM: Ht 5' 3.5 (1.61m) Wt 260 lb (117.9kg) BMI 45.33 kg/(m^2). VIDEO EXAM: (if completed, performed via video enabled technology) GENERAL: alert and appropriate, in no distress, well-hydrated, well nourished, and happy, smiling, interactive SKIN: no rash noted HEAD: normocephalic, no abnormality or lesion noted EYES: no injection and visual acuity is grossly normal OROPHARYNX: moist mucus membranes NECK: full ROM, no cervical LNs noted RESPIRATORY: breathing non-labored CHEST: equal chest rise with normal respiratory effort HEART: Patient palpated radial pulse, regular when counted aloud by patient NEUROLOGIC: no obvious deficit Diagnostic tests reviewed for today's visit: Lab Value Units Date High Low HB No results within date range. HCT No results within date range. WBC No results within date range. PLT No results within date range. NA No results within date range. K No results within date range. GLUC No results within date range. BUN No results within date range. CREAT 0.59 mg/dL 09/11/2022 0.96 0.58 PTSEC No results within date range. INR No results within date range. APTT No results within date range. ALT No results within date range. AST No results within date range. TBILI No results within date range. TSH No results within date range. Lab Value Units Date High Low HCGQT No results within date range. UHCG No results within date range. HCG, BODY* No results within date range. Lab Value Units Date High Low ABORHD No results within date range. ABSCREEN No results within date range. No results found for: HBA1C Most recent labs. Patient will have labs and A1C faxed from OSH Most recent EKG: normal sinus rhythm, normal axis, normal intervals Impression/Recommendations ASSESSMENT: Type 2 diabetes mellitus without complication (HCC) Managed with liraglutide (VICTOZA, metFORMIN (GLUCOPHAGE), Fiasp injections and insulin glargine (LANTUS) Follow by endo Dr. Rosanne Dumont [facility] Patient reports last A1C was 7.4, to be drawn next week at Endo appointment Reports fasting BS 109-150 Mixed hyperlipidemia Managed with atorvastatin (LIPITOR) and ASA Pulmonary embolus (HCC) History 5 years ago treated with Xarelto previously Endometrial cancer (HCC) Diagnosed with endometrial cancer stage II in 2016. She was treated surgically, chemotherapy and radiation. Morbid obesity (HCC) Body mass index is 45.33 kg/m . METS: Walk indoors, such as around the house (1.75 METs) Do light work around the house, such as dusting or washing dishes (2.70 METs) Take care of self; that is eating, dressing, bathing, using the toilet (2.75 METs) Do moderate work around the house such as vacuuming, sweeping floors, or carrying in groceries (3.50 METs) Climb a flight of stairs or walk up a hill (5.50 METs) Patient denies any chest pain or undue shortness of breath with the above physical activity. ASA Class: 3 ANESTHESIA FINDINGS: Intubation History: No history of difficult intubation Significant Anesthesia Considerations: None Airway Exam: General: Morbid obesity Mallampati Score is CLASS II ULBT: Class I - Lower incisors can bite the upper lip above the gallo line Neck: Normal appearance and function, Distance from hyoid to mentum during neck extension is at least 3 finger breaths Mouth: Normal tongue size and Mouth opening greater than 2 finger breaths Dentition: Implant right front tooth and Missing teeth lower bilateral molars Airway History: No abnormal airway history STOP BANG Score: Criteria: Snoring BMI > 35 Age over 50 (67 year old) Score = 3 PLAN: Pt optimally prepared for surgery, pending day of surgery exam CONSULTS: Patient does not require consults for optimization at this time. The Following Tests/Procedures Have Been Initiated: Labs not indicated per PACC protocol, EKG not indicated per PACC protocol Planned Anesthetic: Per anesthesia choice Instructions Given to Patient: Patient given verbal instructions and voices comprehension and compliance. Copy sent electronically via My Chart, email, or mobile device. I spent more than 21-40 minutes [id number] with the patient and over half the time was devoted tocounseling and/or coordination of care. This is a virtual visit. It required patient-provider interaction for the medical decision making as documented above. SIGNATURE: Christophe Shaffer APRN.VINCE PATIENT NAME: Magy Castro DATE: February 02, 2023 TIME: 8:45 AM PAGER/CONTACT #: documented in this [facility]03-29-2023 History and physical note * Lior Linton MD - 01/07/2023 9:30 AM EDT Consultation requested by Dr. Jn Larson for an opinion regarding pancreatic cyst. My final recommendations will be communicated back to the requesting physician by way of shared medical record or fax. REASON FOR VISIT: Pancreatic cyst HPI: Magy Castro is a 67 year old female who presents for evaluation of pancreatic cyst. She is newto my practice and this is her first visit with me. The patient had history of endometrial carcinoma stage II diagnosed 2016 and treated with surgery followed by chemo and radiation. On routine follow-up for her cancer CT scan of the abdomen pelvis done 09/11/2022 described 1.5 x 1.0 cm cystic lesion in the pancreatic body without dilated pancreatic duct. MRCP 10/23/2022 showed 12 x 7 x 5 mm lobulated cystic mass in the body of the pancreas without mass lesion or pancreas duct dilation. She denies any GI symptoms. No weight loss. Bowel movements is daily with occasional diarrhea related to food. No rectal bleeding or melena. She is diabetic and takes 40 units of Lantus at night. She takes aspirin. She does not smoke cigarettes or drink alcohol. 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 Previous work up includes: 09/11/2022 CTAP w/ IV/PO contrast: Pancreas: New/more conspicuous 1.5 x 1.0 cm cystic focus in the pancreatic body (3:33). Main pancreatic duct is nondilated. 1. New/more conspicuous 1.5 x 1.0 cm cystic focus in the pancreatic body. Differential diagnosis includes side branch intraductal papillary neoplasm (IPMN) and sequelae of previous pancreatitis. Consider further evaluation via interval follow-up, MRI or endoscopic ultrasound. 2. Mild abdominal lymphadenopathy, stable. 3. Several anterior abdominal hernias containing portions of nonobstructed small bowel, increased. 10/23/2022 MRI abdomen: Mild atrophy of the pancreas. 7 x 5 x 12 mm lobulated cystic mass in the body of the pancreas. There is no pancreatic duct dilatation or pancreatic duct communication there are no acute inflammatory changes. Primary differential considerations include a cystic pancreatic neoplasm versus pseudocyst a cysticpancreatic neoplasm is favored due to the lack of inflammatory changes in the pancreas the cyst is too small to accurately discriminate features of different types of cystic neoplasms. 2. Subcentimeter hepatic and renal cysts. 3. Nodule in the periphery of the left lower lung base. In the absence of prior documentation a CT scan of the chest is recommended. ALLERGIES No Known Allergies PAST MEDICAL HISTORY Diagnosis Date Diabetes (HCC) Mixed hyperlipidemia 12/21/2015 Morbid obesity (HCC) 12/21/2015 Periumbilical hernia containing loop of small bowel Pulmonary emboli (HCC) right lower lobe Pulmonary nodules bilateral subcentimeter PAST SURGICAL HISTORY Procedure Laterality Date APPENDECTOMY RSO? LAPAROSCOPY SURG CHOLECYSTECTOMY PAST SURGICAL HISTORY OF 11/30/15 D&C, hysteroscopy TUBAL LIGATION HX FAMILY HISTORY Problem Relation Age of Onset Pancreatic Cancer Brother Stroke Paternal Grandmother other (Leukemia [Other]) Paternal Grandfather Crohn's Disease Son Colon Cancer No Family History Social History Tobacco Use Smoking status: Never Smokeless tobacco: Never Vaping Use Vaping Use: Never used Substance Use Topics Alcohol use: No Drug use: No Current Outpatient Medications Medication Sig aspirin, enteric coated (ASPIRIN, ENTERIC COATED) 81 mg EC tablet Aspirin (Aspirin Low Dose) 81 mg Tablet,Delayed Release (Dr/Ec) Active 2 TAB PO Daily December 07, 2018 11:02am cyanocobalamin (VITAMIN B-12) 1,000 mcg tab Cyanocobalamin (Vitamin B-12) (Vitamin B-12) 1,000 mcg Tablet Active 1000 MCG PO Daily January 06, 2018 9:27am VITAMIN B COMPLEX ORAL Take by mouth q 24 HR. INV VITAMIN D3 5000 UNITS CAPSULE (IRB [id number]) Take 5,000 Units by mouth once daily. For Investigational Drug Use Only. PI: Blanca Swan, PhD. Take one capsule by mouth daily for 3 months prior to surgery and 3 months after surgery. iv contrast (will be provided with radiology test) CT Chest ABD/PEL-Inject, intravenously, once for1 dose.No IV access, insert saline lock prior to the beginning of sedation, infusion, injection of imaging exam. Discontinue saline lock post exam. If Pt. has a central line or IVAD, may access for administration according to line specific nursing protocol. Once exam is complete flush line and de-access according to line specific nursing protocol in the CT contrast administration guidelines link. enteric contrast (will be provided with radiology test) For CT CHESTABD/PEL W IVCON Routine order Administer, As Directed One Time Only, via Oral, Rectal, both Oral and Rectal, Enteric Tube, Stoma orIndwelling Catheter, Enteric Contrast as designated per enteric contrast guidelines iv contrast (will be provided with radiology test) CT Chest ABD/PEL-Inject, intravenously, once for1 dose.No IV access, insert saline lock prior to the beginning of sedation, infusion, injection of imaging exam. Discontinue saline lock post exam. If Pt. has a central line or IVAD, may access for administration according to line specific nursing protocol. Once exam is complete flush line and de-access according to line specific nursing protocol in the CT contrast administration guidelines link. enteric contrast (will be provided with radiology test) For CT CHESTABD/PEL W IVCON Routine order Administer, As Directed One Time Only, via Oral, Rectal, both Oral and Rectal, Enteric Tube, Stoma orIndwelling Catheter, Enteric Contrast as designated per enteric contrast guidelines metFORMIN (GLUCOPHAGE) 1,000 mg tablet Take 1,000 mg by mouth twice daily with meals. empagliflozin 25 mg tab Take 25 mg by mouth once daily. liraglutide (VICTOZA) 0.6 mg/0.1 mL (18 mg/3 mL) pnij Inject 1.8 mg subcutaneously once daily. insulin glargine (LANTUS) 100 unit/mL (3 mL) inpn Inject 40 Units subcutaneously daily at bedtime. atorvastatin (LIPITOR) 10 mg tablet Take 10 mg by mouth once daily. Every other day per MD No current facility-administered medications for this visit. REVIEW OF SYSTEMS: PAIN ASSESSMENT: Negative for pain, history of chronic pain, or current treatment for a chronic pain condition. GENERAL: No weight loss, malaise or fevers HEENT: Negative for frequent or significant headaches, No changes in hearing or vision, no nose bleeds or other nasal problems NECK: Negative for lumps, goiter, pain and significant neck swelling RESPIRATORY: Negative for cough, hemoptysis, wheezing, COPD, dyspnea or shortness of breath CARDIOVASCULAR: Negative for chest pain, leg swelling, hypertension, CHF or palpitations GI: No nausea, vomiting, or diarrhea : No history of dysuria, frequency or incontinence MUSCULOSKELETAL: Negative for joint pain or swelling, back pain or muscle pain SKIN: Negative for lesions, rash, and itching PSYCH: Negative for sleep disturbance, mood disorder and recent psychosocial stressors HEMATOLOGY/LYMPHOLOGY: Negative for prolonged bleeding, bruising easily or swollen nodes ENDOCRINE: Negative for cold or heat intolerance, polyuria, polydipsia and goiter NEURO: No history of headaches, syncope, paralysis, seizures or tremors PHYSICAL EXAMINATION: BP 156/86 Pulse 91 Wt 265 lb (120.2kg) General appearance: Well appearing, alert, in no acute distress, well-hydrated, well nourished. Skin: Skin color, texture, turgor normal, no suspicious rashes or lesions Head: Normocephalic, no masses, lesions, tenderness or abnormalities Eyes: Anicteric sclera. Pupils are equally round and reactive to light. Extraocular movements are intact. Nose/Sinuses: Nares normal, septum midline, mucosa normal, no drainage or sinus tenderness Oropharynx: Lips, mucosa, and tongue normal, teeth and gums normal, oropharynx normal Neck: Supple, no adenopathy; thyroid symmetric, normal size, no bruits Lungs: Lungs clear to auscultation. No wheezing, rhonchi, rales Heart: RRR without murmur, gallop, or rubs. No ectopy Abdomen: Normal abdominal exam, Abdomen soft, non-tender. Bowel sounds normal. No masses, organomegaly Extremities: No deformities, edema, skin discoloration, clubbing or cyanosis. Good capillary refill. Musculoskeletal: No joint swelling, deformity, or tenderness Peripheral pulses: Normal Neuro: Gait normal. ASSESSMENT/PLAN: 1. Pancreatic cyst - ICD9: 577.2, ICD10: K86.2 (primary diagnosis) The MRCP was done at [facility]. I will review the images after they are downloaded to [facility]. We will schedule the patient for EUS with possible FNA especially with the strong family history ofpancreatic cancer. - EGD - THERAPEUTIC, EUS, OR TUBE INTERVENTIONS 2. Family history of pancreatic cancer - ICD9: V16.0, ICD10: Z80.0 Brother at age 51 from fire extinguisher mechanic cancer. He was not smoker or alcoholic. 3. History of endometrial cancer - ICD9: V10.42, ICD10: Z85.42 History of endometrial cancer stage II diagnosed 2016 and treated with surgery followed by chemo and radiation. Lior Linton MD, FACP documented in this encounterWay[facility]01-24-[facility]23 Evaluation note* Encounter Date Diagnosis Assessment Notes Treatment Notes Treatment Clinical Notes Oct, Type 2 diabetes mellitus (ICD-10 - E11.9) Managing type 2 diabetes material was published 1. Uncontrolled, Type 2 diabetes A1C 7.9% 2. Blood glucose levels improved. According to Petflow 2 cgm download 10/22/2022- Avg glucose 173. >250-6%, >180-35%, 70-180-59%, <70-0%, <54-0%. CV 26. Reviewed download with pt, readings above target postpranidal. Reviewed with pt 1:7 carb ratio, pt has been using 1:10 carb ratio. Reviewed dosing with pt. Reviewed with pt how to titrate basal/meal insulin according to fasting am/meal to meal glucose pattern. Pt verbalizes understanding. 3. Patient is alert, oriented and receptive to making changes or counseling. Notes: Seen for an assessment of current glucose pattern, changes in treatment plan, counseling and coordination of care related to diabetes, risks, and benefits of treatment, medications, and side effects. TOPICS REVIEWED: 1. Time was spent reviewing: a. Basic concepts of diabetes, progressive beta cell , concepts of basal/bolus/correc tive insulin requirements. Basal: The goal is fasting blood glucose of 90-130mg. IF fasting blood glucose starts to run under 100mg 3x's/ week, decrease dose by 10%. Bolus: The goal is to hold the blood glucose level steady meal to meal. If pt. is going to have increased physical activity after a meal, decrease the schedule meal dose prior to the activity by 30-50%. If pt. skips a meal do not take this dose. Correction: The goal is to correct an elevated glucose back into the 100-150mg range b. Nutrition: Concepts of healthy diet, encouraged to decrease saturated fat in diet and increase non-starchy vegetables and fruits in diet. BMI: Pt. needs to select one small change to decrease caloric intake or increase physical activity to help decrease weight. c. Correct treatment of hypoglycemia, carry a glucose source at all times on your person, in vehicles, and at bedside. Can use glucose tablets/4, four ounces of pop or juice equal to 15 G of carbohydrate. Blood glucose should be 100 mg/dl or higher when driving. d. ADA glucose goals for age and medical complexity reviewed e. Patient questions addressed 2. Activity/exercise: Encouraged to start any form of physical activity. Start low level and increase slowly to a minimal goal of 150 minutes/week. Limit activity to what is allowed by other issues such as cardiac, pulmonary or orthopedic restrictions. 3. Standards of care: Reminded to have an annual dilated eye exam, A1C every 3 months, urine testing for microalbumin once/year, check feet daily and report any cuts or sores that do not appear to be healing. 4. Meter: Plan to check blood glucose: Please check blood glucose levels 4 times/day. Back to back meals reveal effectiveness of bolus dosing. The blood glucose data is used to determine insulin doses,and confirm symptoms of hypoglcyemia and hyperglcyemia. 5. [facility] Contact office if any issues or concerns with patterns of hypoglycemia, hyperglycemia, or diabetes medication issues. 6. Prescriptions: Will call when needed. 7. Prescriptions will not be filled unless you are compliant with follow up appointments or have a follow up appointment scheduled as ordered by your provider. Refills should be requested at the time of your visit. Oct, Dietary counseling and surveillance (ICD-10 - Z71.3) Eat well, exercise well, be well: dietary and fitness guidelines material was published Oct, Hyperlipidemia (ICD-10 - E78.5) Managing your cholesterol material was published 03/2022 ldl 74- at goal- on statin. Oct, HTN (hypertension) (ICD-10 - I10) High blood pressure material was published Oct, prison current use of insulin (ICD-10 - Z79.4) Oct, B12 deficiency (ICD-10 - E53.8) Good food sources of vitamin B12 material was published 03/2022 Vit b12 >1400 Oct, BMI 45.0-49.9, adult (ICD-10 - Z68.42) Setting weight-loss goals material was published 2 pound weight loss from last visit, continue with weight loss efforts [employer] Other 01-19-2023 Miscellaneous Notes* Telephone Encounter - Romain Bautista Pss - 10/30/2022 11:33 AM EST Spoke with patient and she is scheduled @ 9:[address] Linton for O/V. Thanks Medardo * Telephone Encounter - Heidi Parson RN - 10/30/2022 11:18 AM EST Medardo is supposed to call pt today to schedule in biliary pancreas clinic on 11/19/2022. Heidi Parson RN * Telephone Encounter - Blanca Norton - 10/30/2022 11:09 AM EST Pt saw Dr. Rowland, at [facility] and was given Dr. Linton's name to schedule a ERCP?Dr. Rowland does not do ERCPs Pt stated that Dr. Rowland has sent over pt's medical records?! Pt can be reached at Thanks [facility]* Encounter Date Diagnosis Assessment Notes Treatment Notes Treatment Clinical Notes Sep, Type 2 diabetes mellitus (ICD-10 - E11.9) Pt reports her blood sugar has been well controlled. She recently started the Fiasp and stopped the amryl. The Fiasp is a fast acting insulin with a sliding scale dose, that she can take immediately before or after eating.Pt is to continue with Dari Mapus, and with the above medication, and we will continue to monitor. Sep, Endometrial carcinom a (ICD-10 - C54.1) Pt reports the DOCUMENT PREPARATION SPECIALIST at the cancer center ordered a CT to monitor her carcinoma. She is to continue to follow with her yearly, and we will continue to monitor. 14 Sep, 2022 Screening for osteoporosis (ICD-10 - Z13.820) Review of pt's dexa scan, which is normal. Sep, Pancreatic abnormality (ICD-10 - Q45.3) Review of pt's abdominal CT, which does reveal a cystic abnormality. She reports her brother dying of pancreatic cancer. She was referred to gastro for this, which I encouraged her to follow with. She voices agreement, therefore we will continue to monitor. 14 Sep, 2022 Lung nodule (ICD-10 - R91.1) Review of pt's CT, which did reveal multiple lung nodules. Her oncologist will repeat this CT in one year, and we will continue to monitor. Sep, Hyperlipidemia (ICD-10 - E78.5) Pt is to continue the above medication, and the above blood work was ordered to monitor this. [employer] Other 12-07-2022 NoteHNO ID: [id number] Author: Юлия Odom APRN.CHEMIST PHYSICAL Service: ? Author Type: Nurse Practitioner Type: Progress Notes Filed: 09/17/2022 12:59 PM Note Text: DATE: 09/17/2022 PROBLEM: routine Follow up DIAGNOSIS: stage 1a FIGO 2 endometrial cancer. HPI: is a 67 yo female w PMH of DM II, HLD, PE, uterine cancer. Prior treatment/date: 1. 12/27/2015: Diagnostic laparoscopy, extensive lysis of adhesion (2 hrs), total hysterectomy and bilateral salpingo-oophorectomy and cystoscopy Moderately-differentiated endometrial adenocarcinoma, endometrioid type, FIGO grade 2. Tumor Size: 4.5 cm, Myometrial Invasion: 2 mm of 17 mm, LVSI present, cervix not involved HNPCC screening negative ER/VT: negative 2. Chemotherapy with Carboplatin and taxol started 02/05/2016- 07/08/2016 s/p 5 cycles 3. Vaginal brachytherapy completed in 04/28/2016 Most recent imaging: CT CAP 03/26/2021 IMPRESSION: Multiple stable lymph nodes measuring up to 8 mm in the left lower lobe which appear unchanged compared with most remote available CT of 12/26/2015. Although these are presumably benign, given patient's history of neoplasm continued attention on follow-up is recommended. No intrathoracic lymphadenopathy. Mild abdominopelvic lymphadenopathy is unchanged since at least 08/03/2017. No new metastatic disease in the abdomen or pelvis. Hepatic steatosis. CT CAP 09/16/2021 IMPRESSION: 1. Stable CT of the abdomen and pelvis. No findings to suggest new metastatic disease in the abdomen or pelvis. 2. Stable appearance of abdominal and pelvic lymphadenopathy. 3. Hepatic steatosis. 1. Stable appearance of multiple bilateral pulmonary nodules. No new or enlarging nodules are visualized. 2. No evidence of bulky intrathoracic lymphadenopathy IMPRESSION: 1. New/more conspicuous 1.5 x 1.0 cm cystic focus in the pancreatic body. Differential diagnosis includes side branch intraductal papillary neoplasm (IPMN) and sequelae of previous pancreatitis. Consider further evaluation via interval follow-up, MRI or endoscopic ultrasound. 2. Mild abdominal lymphadenopathy, stable. 3. Several anterior abdominal hernias containing portions of nonobstructed small bowel, increased. CT CAP 09/11/2022 IMPRESSION: 1. Indeterminate 5 mm right lower lobe nodular opacity, increased since 09/16/21. Consider continued interval follow up. 2. Other subcentimeter nodular opacities are stable. IMPRESSION: 1. New/more conspicuous 1.5 x 1.0 cm cystic focus in the pancreatic body. Differential diagnosis includes side branch intraductal papillary neoplasm (IPMN) and sequelae of previous pancreatitis. Consider further evaluation via interval follow-up, MRI or endoscopic ultrasound. 2. Mild abdominal lymphadenopathy, stable. 3. Several anterior abdominal hernias containing portions of nonobstructed small bowel, increased. SUBJECTIVE: Magy reports that she feels well. No vaginal bleeding or discharge. No shortness of breath, cough, or chest pain. No abdominal pain, nausea, vomiting, diarrhea, or constipation. No dysuria, gross hematuria, urinary frequency, urinary urgency, or incontinence. OBJECTIVE: BP 143/55 Pulse 81 Temp 36.4 ?C (97.6 ?F) Resp 14 Wt 120.2 kg (265 lb) BMI 45.46 kg/m? GEN: Comfortable HEENT: normocephalic NECK: no adenopathy CARD: RRR PULM: Clear bilat ABD: Soft, nontender, not distended GROIN: No inguinal adenopathy PELVIC: The external genitalia are normal. vagina normal on speculum exam, Vaginal rust without lesion. Bimanual negative. EXT: LE edema-chronic ASSESSMENT: 67 yo history stage T1a FIGO 2 endometrial cancer, +LVI, MMR nl Limited staging 12/2015 ([facility]) HDRB c 04/2016 Chemo x 5 c 06/2016 PLAN: - doing well, exam normal - reviewed CT CAP showing 1.5 x 1.0 cm cystic focus in the pancreatic body. Will plan for GI referral-orders placed. CT chest showing sub centimeter pulmonology nodules most stable, RLL 5mm (previously 3mm 09/2021), will continue to monitor with repeat scans in 1 year. - health maintenance up to date-mammogram completed at [facility] - continue follow up with PCP - RTC in 12 months, sooner prn for issues/concerns. Юлия Odom APRN.VINCE Medical Decision Making: Problems: Low: Stable chronic illness Data: Unique test result(s) reviewed: 1 Risk: Low: Low risk from testing/treatment Medical Decision Making Level: 3 - [facility]12-07-2022 History of Present illness Narrative* Юлия Odom APRN.CHEMIST PHYSICAL - 09/17/2022 9:40 AM EST DATE: 09/17/2022 PROBLEM: routine Follow up DIAGNOSIS: stage 1a FIGO 2 endometrial cancer. HPI: is a 67 yo female w PMH of DM II, HLD, PE, uterine cancer. Prior treatment/date: 1. 12/27/2015: Diagnostic laparoscopy, extensive lysis of adhesion (2 hrs), total hysterectomy and bilateral salpingo-oophorectomy and cystoscopy Moderately-differentiated endometrial adenocarcinoma, endometrioid type, FIGO grade 2. Tumor Size: 4.5 cm, Myometrial Invasion: 2 mm of 17 mm, LVSI present, cervix not involved HNPCC screening negative ER/VT: negative 2. Chemotherapy with Carboplatin and taxol started 02/05/2016- 07/08/2016 s/p 5 cycles 3. Vaginal brachytherapy completed in 04/28/2016 Most recent imaging: CT CAP 03/26/2021 IMPRESSION: Multiple stable lymph nodes measuring up to 8 mm in the left lower lobe which appear unchanged compared with most remote available CT of 12/26/2015. Although these are presumably benign, given patient's history of neoplasm continued attention on follow-up is recommended. No intrathoracic lymphadenopathy. Mild abdominopelvic lymphadenopathy is unchanged since at least 08/03/2017. No new metastatic disease in the abdomen or pelvis. Hepatic steatosis. CT CAP 09/16/2021 IMPRESSION: 1. Stable CT of the abdomen and pelvis. No findings to suggest new metastatic disease in the abdomen or pelvis. 2. Stable appearance of abdominal and pelvic lymphadenopathy. 3. Hepatic steatosis. 1. Stable appearance of multiple bilateral pulmonary nodules. No new or enlarging nodules are visualized. 2. No evidence of bulky intrathoracic lymphadenopathy IMPRESSION: 1. New/more conspicuous 1.5 x 1.0 cm cystic focus in the pancreatic body. Differential diagnosis includes side branch intraductal papillary neoplasm (IPMN) and sequelae of previous pancreatitis. Consider further evaluation via interval follow-up, MRI or endoscopic ultrasound. 2. Mild abdominal lymphadenopathy, stable. 3. Several anterior abdominal hernias containing portions of nonobstructed small bowel, increased. CT CAP 09/11/2022 IMPRESSION: 1. Indeterminate 5 mm right lower lobe nodular opacity, increased since 09/16/21. Consider continued interval follow up. 2. Other subcentimeter nodular opacities are stable. IMPRESSION: 1. New/more conspicuous 1.5 x 1.0 cm cystic focus in the pancreatic body. Differential diagnosis includes side branch intraductal papillary neoplasm (IPMN) and sequelae of previous pancreatitis. Consider further evaluation via interval follow-up, MRI or endoscopic ultrasound. 2. Mild abdominal lymphadenopathy, stable. 3. Several anterior abdominal hernias containing portions of nonobstructed small bowel, increased. SUBJECTIVE: Magy reports that she feels well. No vaginal bleeding or discharge. No shortness of breath, cough, or chest pain. No abdominal pain, nausea, vomiting, diarrhea, or constipation. No dysuria, gross hematuria, urinary frequency, urinary urgency, or incontinence. OBJECTIVE: BP 143/55 Pulse 81 Temp 36.4 C (97.6 F) Resp 14 Wt 120.2 kg (265 lb) BMI 45.46 kg/m GEN: Comfortable HEENT: normocephalic NECK: no adenopathy CARD: RRR PULM: Clear bilat ABD: Soft, nontender, not distended GROIN: No inguinal adenopathy PELVIC: The external genitalia are normal. vagina normal on speculum exam, Vaginal rust without lesion. Bimanual negative. EXT: LE edema-chronic ASSESSMENT: 67 yo history stage T1a FIGO 2 endometrial cancer, +LVI, MMR nl Limited staging 12/2015 ([facility]) HDRB c 04/2016 Chemo x 5 c 06/2016 PLAN: - doing well, exam normal - reviewed CT CAP showing 1.5 x 1.0 cm cystic focus in the pancreatic body. Will plan for GI referral-orders placed. CT chest showing sub centimeter pulmonology nodules most stable, RLL 5mm (previously 3mm 09/2021), will continue to monitor with repeat scans in 1 year. - health maintenance up to date-mammogram completed at [facility] - continue follow up with PCP - RTC in 12 months, sooner prn for issues/concerns. Юлия Odom APRN.CNP Medical Decision Making: Problems: Low: Stable chronic illness Data: Unique test result(s) reviewed: 1 Risk: Low: Low risk from testing/treatment Medical Decision Making Level: 3 - Low [facility] NoteHNO ID: [id number] Author: RT Eugenia(R) Service: ? Author Type: Technologist Type: Progress Notes Filed: 09/11/2022 10:00 AM Note Text: Radiology Service Progress Note PATIENT NAME: Magy Castro DATE OF SERVICE: September 11, 2022 TIME: 10:00 AM PATIENT IDENTITY VERIFICATION COMPLETED USING TWO (2) IDENTIFIERS: Name and Date of confirmed by patient verbally. FALL SCREENING: Has the patient had 2 falls in the last year or 1 fall with injury or currently using an Ambulatory Assistive Device (Walker, Cane, Wheelchair, Crutches, etc.)? No PATIENT GENDER DATA: Female. status: : No status: NO. PATIENT RELEVANT IMPLANT DATA REVIEWED: Not Applicable RADIOLOGY DEPARTMENT: CT; Exam(s) Completed: Chest Abdomen Pelvis With IV and Oral contrast PERIPHERAL IV DATA: Site assessment: Clean,Dry and Intact, Site disposition Discontinued SIGNED BY: RT Eugenia(R) September 11, 2022 10:00 [facility]12-01-2022 NoteHNO ID: [id number] Author: Lavinia Godfrey RN Service: ? Author Type: Registered Nurse Type: Progress Notes Filed: 09/11/2022 10:00 AM Note Text: Radiology Service Progress Note DATE OF SERVICE: September 11, 2022 TIME: 9:59 AM PATIENT WEIGHT: 260 LBS PATIENT IDENTITY VERIFICATION COMPLETED USING TWO (2) STANDARD IDENTIFIERS: Name and Date of confirmed by patient verbally. FALL SCREENING: Has the patient had 2 falls in the last year or 1 fall with injury or currently using an Ambulatory Assistive Device (Walker, Cane, Wheelchair, Crutches, etc.)? No PATIENT GENDER DATA: Female. status: : No status: NO. ALLERGIES: Reviewed and unchanged CONTRAST ALLERGY: No EXAM: CT -CONTRAST INDUCED NEPHROPATHY RISK FACTORS: Patient age > 60 years and Diabetic: Yes. Current medication(s): Metformin and Insulin Insulin Pump: N/A Insulin Pump Removed: NO. Patient currently has insulin pump?: No. CREATININE: Creatinine Date Value Ref Range Status 09/11/2022 0.59 0.58 - 0.96 mg/dL Final 09/13/2021 Duplicate request 0.58 - 0.96 mg/dL Final Comment: Account Credited DUPLICATE ORDER MW [id number] 09/13/2021 0.70 0.58 - 0.96 mg/dL Final Estimated Glomerular Filtration Rate Date Value Ref Range Status 09/11/2022 98 >=60 mL/min/1.73m? Final Comment: Estimated Glomerular Filtration Rate (eGFR) is calculated using the 2020 CKD-EPI creatinine equation. This equation utilizes serum creatinine, sex, and age as parameters. The creatinine assay has traceable calibration to isotope dilution-mass spectrometry. Refer to KDIGO guidelines for clinical interpretation. In patients with unstable renal function, e.g. those with acute kidney injury, the eGFR may not accurately reflect actual GFR. eGFR- Date Value Ref Range Status 09/13/2021 Duplicate request Final Comment: Account Credited DUPLICATE ORDER MW [id number] P.O.C.T. RESULTS: POC done: Yes, See Lab Tab September 11, 2022 TREATMENT: No Hydration needed. IV SITE: Ambulatory: A peripheral IV was started in the Left antecubital site with a Angio cath: 20 gauge. IV SITE APPEARANCE: Clean,Dry and Intact SIGNATURE: Lavinia Godfrey RN PATIENT NAME: Magy Castro DATE: September 11, 2022 TIME: 9:59 [facility]11-02-2022 Miscellaneous Notes* Telephone Encounter - Lavinia Godfrey RN - 08/13/2022 10:56 AM EDT Please sign pending Cre order for Magy Castro for upcoming CT with contrast on 09/11/22. Thank you. Lavinia Godfrey RN [facility] Evaluation note* Encounter Date Diagnosis Assessment Notes Treatment Notes Treatment Clinical Notes Jul, Type 2 diabetes mellitus (ICD-10 - E11.9) Managing type 2 diabetes material was published 1. Uncontrolled, Type 2 diabetes A1C 8.2% 2. Blood glucose levels above target. According to [employer] 2 cgm download 07/08/2022-07/21/20 Avg glucose 201. >250-16%, >180-42%, 70-180-42%, <70-0%, <54-0%. CV 26.1% Reviewed download with pt, readings above target fasting am/postpranidal. Will modify ICR/corrective scale- and increase lantus to 40 units qhs- see above. Reveiwed with pt how to titrate basal/meal insulin according to fasting am/meal to meal glucose pattern. Pt verbalizes understanding. 3. Patient is alert, oriented and receptive to making changes or counseling. Notes: Seen for an assessment of current glucose pattern, changes in treatment plan, counseling and coordination of care related to diabetes, risks, and benefits of treatment, medications, and side effects. TOPICS REVIEWED: 1. Time was spent reviewing: a. Basic concepts of diabetes, progressive beta cell , concepts of basal/bolus/correc tive insulin requirements. Basal: The goal is fasting blood glucose of 90-130mg. IF fasting blood glucose starts to run under 100mg 3x's/ week, decrease dose by 10%. Bolus: The goal is to hold the blood glucose level steady meal to meal. If pt. is going to have increased physical activity after a meal, decrease the schedule meal dose prior to the activity by 30-50%. If pt. skips a meal do not take this dose. Correction: The goal is to correct an elevated glucose back into the 100-150mg range b. Nutrition: Concepts of healthy diet, encouraged to decrease saturated fat in diet and increase non-starchy vegetables and fruits in diet. BMI: Pt. needs to select one small change to decrease caloric intake or increase physical activity to help decrease weight. c. Correct treatment of hypoglycemia, carry a glucose source at all times on your person, in vehicles, and at bedside. Can use glucose tablets/4, four ounces of pop or juice equal to 15 G of carbohydrate. Blood glucose should be 100 mg/dl or higher when driving. d. ADA glucose goals for age and medical complexity reviewed e. Patient questions addressed 2. Activity/exercise: Encouraged to start any form of physical activity. Start low level and increase slowly to a minimal goal of 150 minutes/week. Limit activity to what is allowed by other issues such as cardiac, pulmonary or orthopedic restrictions. 3. Standards of care: Reminded to have an annual dilated eye exam, A1C every 3 months, urine testing for microalbumin once/year, check feet daily and report any cuts or sores that do not appear to be healing. 4. Meter: Plan to check blood glucose: Please check blood glucose levels 4 times/day. Back to back meals reveal effectiveness of bolus dosing. The blood glucose data is used to determine insulin doses,and confirm symptoms of hypoglcyemia and hyperglcyemia. 5. [facility]. Contact office if any issues or concerns with patterns of hypoglycemia, hyperglycemia, or diabetes medication issues. 6. Prescriptions: Will call when needed. Pt. advised to follow ADA diet as discussed and monitor BS regularly as advised and bring sugar log to the next appt. Monitor for hypoglycemia and call if any problems. The importance of yearly eye exams stressed Jul, Dietary counseling and surveillance (ICD-10 - Z71.3) Eat well, exercise well, be well: dietary and fitness guidelines material was published Jul, Hyperlipidemia (ICD-10 - E78.5) Managing your cholesterol material was published 03/2022 ldl 74 on statin. Jul, HTN (hypertension) (ICD-10 - I10) High blood pressure material was published Jul, prison current use of insulin (ICD-10 - Z79.4) Jul, B12 deficiency (ICD-10 - E53.8) Good food sources of vitamin B12 material was published 03/2022 Vit b12 >1400 Jul, BMI 45.0-49.9, adult (ICD-10 - Z68.42) Setting weight-loss goals material was published [employer] Other 06-29-2022 Evaluation note* Encounter Date Diagnosis Assessment Notes Treatment Notes Treatment Clinical Notes Mar, Type 2 diabetes mellitus (ICD-10 - E11.9) Managing type 2 diabetes material was published 1. Uncontrolled, Type 2 diabetes A1C 7.1% 2. Blood glucose levels above target. According to [employer] 2 cgm download 03/27/2022- 2 Avg glucose 180. >250-13%, >180-32%, 70-180-55%, <70-0%, <54-0%. CV 30% Reviewed download with pt, readings often above target postpranidal she has not been using fiasp carb ratio ac only corrective scale. Reviewed with pt Fiasp dosing 1:10 carb ratio plus corrective scale for improved postprandial glycemia. She is to stop glimeperide. Reveiwed with pt how to titrate basal/meal insulin according to fasting am/meal to meal glucose pattern. Pt verbalizes understanding. 3. Patient is alert, oriented and receptive to making changes or counseling. Notes: Seen for an assessment of current glucose pattern, changes in treatment plan, counseling and coordination of care related to diabetes, risks, and benefits of treatment, medications, and side effects. TOPICS REVIEWED: 1. Time was spent reviewing: a. Basic concepts of diabetes, progressive beta cell , concepts of basal/bolus/correc tive insulin requirements. Basal: The goal is fasting blood glucose of 90-130mg. IF fasting blood glucose starts to run under 100mg 3x's/ week, decrease dose by 10%. Bolus: The goal is to hold the blood glucose level steady meal to meal. If pt. is going to have increased physical activity after a meal, decrease the schedule meal dose prior to the activity by 30-50%. If pt. skips a meal do not take this dose. Correction: The goal is to correct an elevated glucose back into the 100-150mg range b. Nutrition: Concepts of healthy diet, encouraged to decrease saturated fat in diet and increase non-starchy vegetables and fruits in diet. BMI: Pt. needs to select one small change to decrease caloric intake or increase physical activity to help decrease weight. c. Correct treatment of hypoglycemia, carry a glucose source at all times on your person, in vehicles, and at bedside. Can use glucose tablets/4, four ounces of pop or juice equal to 15 G of carbohydrate. Blood glucose should be 100 mg/dl or higher when driving. d. ADA glucose goals for age and medical complexity reviewed e. Patient questions addressed 2. Activity/exercise: Encouraged to start any form of physical activity. Start low level and increase slowly to a minimal goal of 150 minutes/week. Limit activity to what is allowed by other issues such as cardiac, pulmonary or orthopedic restrictions. 3. Standards of care: Reminded to have an annual dilated eye exam, A1C every 3 months, urine testing for microalbumin once/year, check feet daily and report any cuts or sores that do not appear to be healing. 4. Meter: Plan to check blood glucose: Please check blood glucose levels 4 times/day. Back to back meals reveal effectiveness of bolus dosing. The blood glucose data is used to determine insulin doses,and confirm symptoms of hypoglcyemia and hyperglcyemia. 5. [facility]. Contact office if any issues or concerns with patterns of hypoglycemia, hyperglycemia, or diabetes medication issues. 6. Prescriptions: None needed. Mar, Dietary counseling and surveillance (ICD-10 - Z71.3) Eat well, exercise well, be well: dietary and fitness guidelines material was published Mar, Hyperlipidemia (ICD-10 - E78.5) Managing your cholesterol material was published 03/2022 ldl 74 on statin. Mar, HTN (hypertension) (ICD-10 - I10) High blood pressure material was published Mar, prison current use of insulin (ICD-10 - Z79.4) Mar, B12 deficiency (ICD-10 - E53.8) Good food sources of vitamin B12 material was published 03/2022 Vit b12 >1400 Mar, BMI 45.0-49.9, adult (ICD-10 - Z68.42) Making healthy choices at restaurants material was published [employer] Other 06-14-2022 Evaluation note* Encounter Date Diagnosis Assessment Notes Treatment Notes Treatment Clinical Notes Mar, Sinus congestion (ICD-10 - R09.81) [employer] Other 04-20-2022 Evaluation note* Encounter Date Diagnosis Assessment Notes Treatment Notes Treatment Clinical Notes Jan, Type 2 diabetes mellitus (ICD-10 - E11.9) [employer] Other 03-09-2022 Evaluation note* Encounter Date Diagnosis Assessment Notes Treatment Notes Treatment Clinical Notes Dec, Type 2 diabetes mellitus (ICD-10 - E11.9) Managing type 2 diabetes material was published 1. Controlled, Type 2 diabetes A1C 7% 2. Blood glucose levels improved. According to [facility] 2 cgm download 12/05/2021-12/18/2021 Avg glucose 157. >250-9%, >180-23%, 70-180-64%, <70-3%, <54-1%. CV 38.8% Reviewed download with pt, noted several fasting am glucose reading under target. Readings often above target postpranidal after consuming higher carb meal. Recommend reducing lantus from 36 to 34 units qhs. Stop glimeperide start fiasp 1:10 carb ratio ac tid, corrective scale 1:50. Reveiwed with pt how to titrate basal/meal insulin according to fasting am/meal to meal glucose pattern. Reviewed with pt option of downloading Get10 kiera to help with carb counting. Pt verbalizes understanding. 3. Patient is alert, oriented and receptive to making changes or counseling. Notes: Seen for an assessment of current glucose pattern, changes in treatment plan, counseling and coordination of care related to diabetes, risks, and benefits of treatment, medications, and side effects. TOPICS REVIEWED: 1. Time was spent reviewing: a. Basic concepts of diabetes, progressive beta cell , concepts of basal/bolus/correc tive insulin requirements. Basal: The goal is fasting blood glucose of 90-130mg. IF fasting blood glucose starts to run under 100mg 3x's/ week, decrease dose by 10%. Bolus: The goal is to hold the blood glucose level steady meal to meal. If pt. is going to have increased physical activity after a meal, decrease the schedule meal dose prior to the activity by 30-50%. If pt. skips a meal do not take this dose. Correction: The goal is to correct an elevated glucose back into the 100-150mg range b. Nutrition: Concepts of healthy diet, encouraged to decrease saturated fat in diet and increase non-starchy vegetables and fruits in diet. BMI: Pt. needs to select one small change to decrease caloric intake or increase physical activity to help decrease weight. c. Correct treatment of hypoglycemia, carry a glucose source at all times on your person, in vehicles, and at bedside. Can use glucose tablets/4, four ounces of pop or juice equal to 15 G of carbohydrate. Blood glucose should be 100 mg/dl or higher when driving. d. ADA glucose goals for age and medical complexity reviewed e. Patient questions addressed 2. Activity/exercise: Encouraged to start any form of physical activity. Start low level and increase slowly to a minimal goal of 150 minutes/week. Limit activity to what is allowed by other issues such as cardiac, pulmonary or orthopedic restrictions. 3. Standards of care: Reminded to have an annual dilated eye exam, A1C every 3 months, urine testing for microalbumin once/year, check feet daily and report any cuts or sores that do not appear to be healing. 4. Meter: Plan to check blood glucose: Please check blood glucose levels 4 times/day. Back to back meals reveal effectiveness of bolus dosing. The blood glucose data is used to determine insulin doses,and confirm symptoms of hypoglcyemia and hyperglcyemia. 5. [facility] Contact office if any issues or concerns with patterns of hypoglycemia, hyperglycemia, or diabetes medication issues. 6. Prescriptions: Sample fiasp u100 x1 pen given. Sent fiasp to [facility]. 7. Reviewed with pt if right great toe any redness, drainage, pain- recommend f/u with pcp for evaluation/further treatment. Pt verbalizes understanding. Dec, Dietary counseling and surveillance (ICD-10 - Z71.3) Eat well, exercise well, be well: dietary and fitness guidelines material was published Dec, Hyperlipidemia (ICD-10 - E78.5) Managing your cholesterol material was published 04/2021 ldl 75, trig. 164 on statin. Dec, HTN (hypertension) (ICD-10 - I10) High blood pressure material was published Dec, prison current use of insulin (ICD-10 - Z79.4) Dec, B12 deficiency (ICD-10 - E53.8) Good food sources of vitamin B12 material was published 04/2021 Vit b12 211 on supplement Dec, BMI 45.0-49.9, adult (ICD-10 - Z68.42) Making healthy choices at restaurants material was published Dec, Hypoglycemia associated with type 2 diabetes mellitus (ICD-10 - E11.649) Low blood glucose and diabetes material was published [facility] Other 01-07-2022 Evaluation note* Encounter Date Diagnosis Assessment Notes Treatment Notes Treatment Clinical Notes Oct, Cough (ICD-10 - R05.9) [facility] Other 12-13-2021 Evaluation note* Encounter Date Diagnosis Assessment Notes Treatment Notes Treatment Clinical Notes Sep, Diabetes mellitus with neurological manifestations, 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 Sep, Hyperlipidemia LDL goal <100 (ICD-10 - E78.5) Pt is to continue with the above medication twice a week and continue watching their diet and increase their exercise regimen. Sep, HTN (hypertension) (ICD-10 - I10) Blood pressure is within normal range, we will continue to monitor. Sep, Screening for colon cancer (ICD-10 - Z12.11) The patient is agreeable to cologuard ,therefore an order was provided. Sep, History of DVT (deep vein thrombosis) (ICD-10 - Z86.718) The patient encouraged to continue taking 325 mg Aspirin. Sep, Vitamin D deficiency (ICD-10 - E55.9) [facility] Other 11-30-2021 Evaluation note* Encounter Date Diagnosis Assessment Notes Treatment Notes Treatment Clinical Notes Aug, Type 2 diabetes mellitus (ICD-10 - E11.9) Managing type 2 diabetes material was published 1. Uncontrolled, Type 2 diabetes A1C 7.2% 2. Blood glucose levels improved, above target. According to mirta 2 cgm download 08/28/2021-09/10/ 021 Avg glucose 147. >250-5%, >180-21%, 70-180-71%, <70-3%, <54-0%. CV 37% Reviewed download with pt, readings often above target postpranidal after consuming higher carb meal. Isolated incidence of hypoglcyemia after taking corrective dosing >1hour after meal, reveiwed with pt she must wait 4 hours after last meal before using corrective scale- this can result in a hypoglcyemic event. She also reports she hasn't been taking glimeperide at meal for breakfast has been taking later in the morning- recommend taking glimeperide with the meal. She verbalizes understanding. Also noted several fasting am glucose <100 will reduce lantus from 38 to 36 units. 3. Patient is alert, oriented and receptive to making changes or counseling. Notes: Seen for an assessment of current glucose pattern, changes in treatment plan, counseling and coordination of care related to diabetes, risks, and benefits of treatment, medications, and side effects. TOPICS REVIEWED: 1. Time was spent reviewing: a. Basic concepts of diabetes, progressive beta cell , concepts of basal/bolus/correc tive insulin requirements. Basal: The goal is fasting blood glucose of 90-130mg. IF fasting blood glucose starts to run under 100mg 3x's/ week, decrease dose by 10%. Bolus: The goal is to hold the blood glucose level steady meal to meal. If pt. is going to have increased physical activity after a meal, decrease the schedule meal dose prior to the activity by 30-50%. If pt. skips a meal do not take this dose. Correction: The goal is to correct an elevated glucose back into the 100-150mg range b. Nutrition: Concepts of healthy diet, encouraged to decrease saturated fat in diet and increase non-starchy vegetables and fruits in diet. BMI: Pt. needs to select one small change to decrease caloric intake or increase physical activity to help decrease weight. c. Correct treatment of hypoglycemia, carry a glucose source at all times on your person, in vehicles, and at bedside. Can use glucose tablets/4, four ounces of pop or juice equal to 15 G of carbohydrate. Blood glucose should be 100 mg/dl or higher when driving. d. ADA glucose goals for age and medical complexity reviewed e. Patient questions addressed 2. Activity/exercise: Encouraged to start any form of physical activity. Start low level and increase slowly to a minimal goal of 150 minutes/week. Limit activity to what is allowed by other issues such as cardiac, pulmonary or orthopedic restrictions. 3. Standards of care: Reminded to have an annual dilated eye exam, A1C every 3 months, urine testing for microalbumin once/year, check feet daily and report any cuts or sores that do not appear to be healing. 4. Meter: Plan to check blood glucose: Please check blood glucose levels 4 times/day. Back to back meals reveal effectiveness of bolus dosing. The blood glucose data is used to determine insulin doses,and confirm symptoms of hypoglcyemia and hyperglcyemia. 5. [facility]. Contact office if any issues or concerns with patterns of hypoglycemia, hyperglycemia, or diabetes medication issues. 6. Prescriptions: Victoza sent to [facility]. Aug, Dietary counseling and surveillance (ICD-10 - Z71.3) Eat well, exercise well, be well: dietary and fitness guidelines material was published Aug, Hyperlipidemia (ICD-10 - E78.5) Managing your cholesterol material was published 04/2021 ldl 75, trig. 164 on statin. Aug, HTN (hypertension) (ICD-10 - I10) High blood pressure material was published Aug, prison current use of insulin (ICD-10 - Z79.4) Aug, B12 deficiency (ICD-10 - E53.8) Good food sources of vitamin B12 material was published 04/2021 Vit b12 211 on supplement Aug, BMI 45.0-49.9, adult (ICD-10 - Z68.42) Making healthy choices at restaurants material was published Aug, Hypoglycemia associated with type 2 diabetes mellitus (ICD-10 - E11.649) Low blood glucose and diabetes material was published [facility]Gl[facility] Other Evaluation noteNo InformationNort Tomorrow Other Evaluation noteNo assessment information available [facility] Work Phone: Evaluation note* Diagnosis Malignant neoplasm of body of uterus, unspecified site (HCC)- [facility] Encounter for follow-up surveillance of endometrial cancer- Primary Unspecified follow-up examination Pancreatic cyst Cyst and pseudocyst of pancreas Lung nodules Other nonspecific abnormal finding of lung field [facility] Diagnosis Pancreatic cyst- Primary Cyst and pseudocyst of pancreas Family history of pancreatic cancer Family history of malignant neoplasm of gastrointestinal tract History of endometrial cancer Personal history of malignant neoplasm of other parts of uterus [facility] Diagnosis Pre-op evaluation- Primary Preoperative examination, unspecified Type 2 diabetes mellitus without complication, 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) Mixed hyperlipidemia Endometrial cancer (HCC) Malignant neoplasm of corpus uteri, except isthmus Morbid obesity (HCC) Morbid obesity [facility] Pancreatic cyst Cyst and pseudocyst of pancreas [facility] Diagnosis Onset Date Resolution Status Diabetes chronic Edema chronic 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 Inflammation chronic Lymphedema of both lower extremities chronic Obesity chronic Venous stasis of both lower extremities chronic Venous stasis ulcer of left lower extremity chronic Venous stasis ulcer of right lower extremity chronic [facility] Work Phone: Evaluation note* Diagnosis Onset Date Resolution Status Diabetes chronic Edema chronic 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 Inflammation chronic Lymphedema of both lower extremities chronic Obesity chronic Venous stasis of both lower extremities chronic Candidiasis resolved Cellulitis resolved Venous stasis ulcer of left lower extremity resolved Venous stasis ulcer of right lower extremity resolved [facility] Work Phone: Evaluation note* Diagnosis Onset Date Resolution Status Diabetes chronic Edema chronic 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 Inflammation chronic Lymphedema of both lower extremities chronic Obesity chronic Venous stasis of both lower extremities chronic Candidiasis resolved Cellulitis resolved Venous stasis ulcer of left lower extremity resolved Venous stasis ulcer of right lower extremity resolved Diabetes chronic Edema chronic 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 Inflammation chronic Lymphedema of both lower extremities chronic Obesity chronic Venous stasis of both lower extremities chronic Candidiasis resolved Venous stasis ulcer of right lower extremity resolved [facility] Work Phone: Evaluation note* Diagnosis Onset Date Resolution Status Diabetes chronic Edema chronic 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 Inflammation chronic Lymphedema of both lower extremities chronic Obesity chronic Venous stasis of both lower extremities chronic Candidiasis resolved Venous stasis ulcer of right lower extremity resolved [facility] Work Phone: history general Narrative - Reported* Type Description Date Medical History DM 2 Medical History HLP Medical History morbid obesity Medical History Body Mass Index 45.0-49.9, adult Medical History Uterine Cancer Medical History Pulmonary Nodules Medical History Abnormal Mammogram 11/16/15- Dr. Sow Medical History chemo- endrometrial Medical History Pulmonary embolism Medical History CVI w/ulcers left leg Medical History Hip Replacement - right 2019 Medical History 06/08/18 Mammogram Medical History Covid 19 Surgical History gall bladder Surgical History appendicitis Surgical History TOTAL HYSTERECTOMY, oophorectom y 12/25 Surgical History Tubal Surgical History anal abscess 05/28 Surgical History Ablation left lower leg 06/18/18 Surgical History Right Total Hip Replacement - Hospitalization History See Above Hospitalization History Covid 19 10/16/20- [facility] Other history general Narrative - Reported* Type Description Date Medical History DM 2 Medical History HLP Medical History morbid obesity Medical History Body Mass Index 45.0-49.9, adult Medical History Uterine Cancer Medical History Pulmonary Nodules Medical History Abnormal Mammogram 11/16/15- Dr. Sow Medical History chemo- endrometrial Medical History Pulmonary embolism Medical History CVI w/ulcers left leg Medical History Hip Replacement - right 2019 Medical History 06/08/18 Mammogram Medical History Covid 19 + 10/2021 Surgical History gall bladder Surgical History appendicitis Surgical History TOTAL HYSTERECTOMY, oophorectom y 12/25 Surgical History Tubal Surgical History anal abscess 05/28 Surgical History Ablation left lower leg 06/18/18 Surgical History Right Total Hip Replacement - Hospitalization History See Above Hospitalization History Covid 19 10/16/20- [facility] Other history general Narrative - Reported* Type Description Date Medical History DM 2 Medical History HLP Medical History morbid obesity Medical History Body Mass Index 45.0-49.9, adult Medical History Uterine Cancer Medical History Pulmonary Nodules Medical History Abnormal Mammogram 11/16/15- Dr. Sow Medical History chemo- endrometrial Medical History Pulmonary embolism Medical History CVI w/ulcers left leg Medical History Hip Replacement - right 2019 Medical History 06/08/18 Mammogram Medical History Covid 19 + 10/2021 Medical History 05/2022 DEXA Medical History Cyst on Pancreas 10/2022 Surgical History gall bladder Surgical History appendicitis Surgical History TOTAL HYSTERECTOMY, oophorectom y 12/25 Surgical History Tubal Surgical History anal abscess 05/28 Surgical History Ablation left lower leg 06/18/18 Surgical History Right Total Hip Replacement 11-16 Hospitalization History See Above Hospitalization History Covid 19 10/16/20- [facility] [employer] Other History general Narrative - [facility] Other Progress note Author Hien Poole [facility] April 30, 2023 9:07am Note Date/Time April 30, 2023 9:07 am [facility] [address] [place] [address] Wound Center Provider Note Signed Patient: Magy Castro MR#: [id number] : 1955 Acct:[id number] Age/Sex: 67 / F Copies to: Sherman Larson,DO Hien Poole, WALTER~ HPI Date of Visit Date of Visit: Date of Service: 04/30/2023 Time of Service: 09:05 Narrative HPI: 03/25/23 Debbie is a 67 year old female presenting to [facility] wound care for an initial visit for eval and treatment of BLE ulcers that appear d/t venous and lymphedema etiologies. She has been a patient here in the past. Unna wraps will be used along with topical steroid and coconut oil and she will present here fordressings. We spoke about vascular and she did have an ablation with [facility] years ago on the LLE but nothing on the RLE- we spoke about referring back and she said that he seemed disinterested in any further work being done on her legs- I asked if she would be interested in seeing the vascular group in [place] but she wants to wait at this time. Weight loss and elevation and compression and good diabetic control will be needed in order to heal the ulcersas well as treating the root cause as best we all can. She may have an early cellulitis and so oral Doxy was escribed today and horse chestnut was as well for its venous anti-inflammatory properties. Probiotics and coconut oil orally were recommended also for the gut/immune health support provided by both of these. 04/02/23 overall better, is still taking the doxy, orders the same, can return next week, right leg may be healed at that point and she can return to her stockings 04/09/23 left leg much better, right leg looks fungal but also possibly cellulitic and so oral diflucan was ordered along with keflex, topical nystatin was applied today to the right leg and the unna was changed to the urgo, will return on thursday, is taking the coconut oil orally and the probiotic 04/20/23 left leg nearly healed, can bring compression sock to next appt, right leg looks better and she says that it feels better, orders will be change to steroid topically to the right leg, will do [facility] referral today, continues to take the horse chestnut and probiotics 04/30/23 healed, both legs, will wear her compression socks, has an appt set up with [facility] and body Subjective Pain Left Lower Leg: Pain Intensity: 0 Right Lower Leg: Pain Intensity: 0 Wound/Ulcer History When did wound start?: July 2022 Mode of Arrival/ Tin Plater: Personal vehicle Lives with:: Spouse Appetite Description: Within Normal Limits Who helps w/ dressing change?: Wound Care Dept Why Do You Need Help?: Can't Reach Ulcer and Limited mobility Smoking Status: Never smoker [facility] Medical History (Updated 04/30/23 @ 09:07 by Hien Poole APRN) Cellulitis Diabetes mellitus, type 2 Hyperlipidemia Peripheral vascular disease Wound, open Surgical History H/O total hip arthroplasty H/O: hysterectomy Hx of appendectomy Hx of cholecystectomy Family History Brother Cancer Social History Smoking Status: Never smoker Substance Use Type: None Grafts History of Graft History of Graft?: No Exam Physical Exam Vital Signs: Temp Pulse Resp BP O2 Del Method 97.7 F 88 18 113/89 Room Air 04/30/23 08:58 04/30/23 08:58 04/30/23 08:58 04/30/23 08:58 04/30/23 08:58 Const General: cooperative, comfortable and no acute distress Nutritional Appearance: obese Orientation: alert, awake and oriented x3 Lower/Upper Extremity Exam Vascular Exam-Edema Left Lower Extremity: Edema Type: Lymphedema Right Lower Extremity: Edema Type: Lymphedema Vascular Exam-Pulses Left Radial: Pulse Assessment Method: Palpation Objective Meds/Allergies Home Medications atorvastatin 10 mg tablet (Lipitor) 10 mg PO Q3-4D hyperlipidemia 01/06/18 [History Confirmed 04/20/23] cyanocobalamin (vitamin B-12) 1,000 mcg tablet (Vitamin B-12) 1,000 mcg PO DAILY01/06/18 [History Confirmed 04/20/23] empagliflozin 25 mg tablet (Jardiance) 25 mg PO DAILY DM 01/06/18 [History Confirmed 04/20/23] insulin glargine 100 unit/mL subcutaneous solution (Lantus U-100 Insulin) 38 unit subcut QHS DM 01/06/18 [History Confirmed 04/20/23] liraglutide 0.6 mg/0.1 mL (18 mg/3 mL) subcutaneous pen injector (Victoza 2- Enoc)1.2 mg subcut QAM DM 01/06/18 [History Confirmed 04/20/23] metformin 1,000 mg tablet (Glucophage) 1,000 mg PO BID DM 01/06/18 [History Confirmed 04/20/23] cholecalciferol (vitamin D3) 125 mcg (5,000 unit) tablet (Vitamin D3) 5,000 unitPO DAILY 11/02/18 [History Confirmed 04/20/23] acetaminophen 500 mg tablet 500 mg PO Q6H PRN Pain ##0 10/29/20 [Rx Confirmed 04/20/23] aspirin 325 mg tablet 325 mg PO DAILY 03/25/23 [History Confirmed 04/20/23] horse chestnut 300 mg capsule 300 mg PO DAILY 30 days #30 caps 03/25/23 [Rx Confirmed 04/20/23] insulin aspart (niacinamide) (U-100) 100 unit/mL subcutaneous solution (Fiasp U- 100 Insulin) See Rx Instructions .Route .COMPLEX 03/25/23 [History Confirmed 04/20/23] Allergies No Known Allergies Allergy (Verified 03/25/23 14:32) Wound/Ulcer Right Lower Leg: Type: Lymphedema (and venous) Thickness: Skin Breakdown Percent of Devitalized: 0 Length (cm): 0 Width (cm): 0 Depth (cm): 0 CM Sq: 0.000 Surrounding Tissue Appearance: Ethnic/Norm Surrounding Tissue Temp: Warm Drainage Amount: None Drainage Odor: No Odor Left Lower Leg: Type: Lymphedema (and venous) Thickness: Skin Breakdown Percent of Devitalized: 0 Length (cm): 0 Width (cm): 0 Depth (cm): 0 CM Sq: 0.000 Surrounding Tissue Appearance: Dryness Surrounding Tissue Temp: Warm Drainage Amount: None Drainage Odor: No Odor Results Height: 5 ft 4 in Weight: 117.934 kg Body Mass Index: 44.6 Assessment/Plan Assessment/Plan (1) Venous stasis ulcer of right lower extremity: Code(s): I83.019 - Varicose veins of right lower extremity with ulcer of unspecified site Status: Resolved (2) Venous stasis ulcer of left lower extremity: Code(s): I83.029 - Varicose veins of left lower extremity with ulcer of unspecified site Status: Resolved (3) Venous stasis of both lower extremities: Code(s): I87.8 - Other specified disorders of veins Status: Chronic (4) Lymphedema of both lower extremities: Code(s): I89.0 - Lymphedema, not elsewhere classified Status: Chronic (5) Obesity: Qualifiers: Obesity type: due to excess calories Obesity classification: adult class 3 (BMI >= 40) Body mass index: BMI 45.0-49.9 Code(s): E66.9 - Obesity, unspecified Status: Chronic (6) Edema: Assessment/Problem Details: ble Qualifiers: Edema type: localized Qualified Code(s): R60.0 - Localized edema Code(s): R60.9 - Edema, unspecified Status: Chronic (7) Diabetes: Qualifiers: Diabetes mellitus type: type 2 Code(s): E11.9 - Type 2 diabetes mellitus without complications Status: Chronic (8) Inflammation: Status: Chronic (9) Hemosiderin 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: Assessment/Problem Details: ble Code(s): L81.8 - Other specified disorders of pigmentation; I83.899 - Varicose veins of unspecified lower extremity with other complications Status: Chronic Time spent with patient Time Spent With Patient (min): 10 Dictated By: Hien Poole APRN DD/ 4 Signed By: <Electronically signed by WALTER Poole> 04/30/23906 [facility] Work Phone: [facility] for referral (narrative)* Outpatient Procedure (Routine) - Authorized Specialty Diagnoses / Procedures Referred By Contac t Referred To Contact [facility] Diagnoses Pancreatic cyst Procedures EGD - THERAPEUTIC, EUS, OR TUBE INTERVENTIONS EGD INTRMURAL US NEEDLE ASPIRATE/BIOPSY ESOPHAGS Lior Linton [place] [id number] [place], [place] [id number] [place] [phone] Referral ID Status Reason Start Date Expiration Date Visits Requested Visits Authorized [id number] Authorized Auto-Generat ed Referral 01/07/2023 01/08/2024 1 1 [facility] for referral (narrative)* Outpatient Procedure (Routine) - Closed Specialty Diagnoses / Procedures Referred By Viky t Referred To Contact [facility] Diagnoses Pancreatic cyst Procedures EGD - THERAPEUTIC, EUS, OR TUBE INTERVENTIONS EGD INTRMURAL US NEEDLE ASPIRATE/[place] [address] [place] [address] [place] [phone] Referral ID Status Reason Start Date Expiration Date V isits Requested Visits Authorized [id number] Closed Auto-Generate d Referral 01/07/2023 01/08/2024 1 1 T [facility] for visit Narrative* Outpatient Procedure (Routine) - Closed Specialty Diagnoses / Procedures Referred By Contac t Referred To Contact [facility] Diagnoses Pancreatic cyst Procedures EGD - THERAPEUTIC, EUS, OR TUBE INTERVENTIONS EGD INTRMURAL US NEEDLE ASPIRATE/[place] [address] [place] [address] [facility] [place] [address] Referral ID Status Reason Start Date Expiration Date V isits Requested Visits Authorized [id number] Closed Auto-Generate d Referral 01/07/2023 01/08/2024 1 1 [facility] Chief Complaint and Reason for Visit Chief Complaint E11.49 z78.0 Screening Chief Complaint E11.49 Open Wound E78.5 Reason for Visit Diabetes Edema Hemosiderin 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 Inflammation Lymphedema of both lower extremities Obesity Venous stasis of both lower extremities Venous stasis ulcer of left lower extremity Venous stasis ulcer of right lower extremity Chief Complaint E11.49 E78.5 Open Wound Reason for Visit Diabetes Edema Hemosiderin 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 Inflammation Lymphedema of both lower extremities Obesity Venous stasis of both lower extremities Candidiasis Cellulitis Venous stasis ulcer of left lower extremity Venous stasis ulcer of right lower extremity Chief Complaint Open Wound E11.49 Open Wound Screening Reason for Visit Diabetes Edema Hemosiderin 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 Inflammation Lymphedema of both lower extremities Obesity Venous stasis of both lower extremities Candidiasis Cellulitis Venous stasis ulcer of left lower extremity Venous stasis ulcer of right lower extremity Diabetes Edema Hemosiderin 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 Inflammation Lymphedema of both lower extremities Obesity Venous stasis of both lower extremities Candidiasis Venous stasis ulcer of right lower extremity Chief Complaint Open Wound Screening Reason for Visit Diabetes Edema Hemosiderin 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 Inflammation Lymphedema of both lower extremities Obesity Venous stasis of both lower extremities Candidiasis Venous stasis ulcer of right lower extremity Chief Complaint Open Wound Screening E11.49 Reason for Visit Diabetes Edema Hemosiderin 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 Inflammation Lymphedema of both lower extremities Obesity Venous stasis of both lower extremities Candidiasis Venous stasis ulcer of right lower extremity Advance Directives No Advanced Directives Records Found Advance Directive Response Recorded Date/ Time Advance Directives No June 9:19am Advance Directive Response Recorded Date/ Time Advance Directives No June 8:19am Reason for Referral Reason SKIN ABNORMALITIES Diagnosis 1 Skin abnormalities ( L98.9) Referral Organization [facility] Referring Provider First Name Rosanne Referring Provider Last Name Tim Referring Provider Specialty Nurse Pract itioner Referred Organization [facility] Referred Provider Chi Cordero Referred Address ,[place], [place],[address] Referred Provider Specialty Dermatology Referral Priority Routine Specialty Diagnoses / Procedures Referred By Viky sue Referred To Contact Gastroenterology Diagnoses Pancreatic cyst Procedures CONSULT TO GASTROENTEROLOGY OFFICE/OUTPATIENT NEW HIGH MDM 60-74 MINUTES Юлия Odom APRN.[facility] [address] [place] [address] Referral ID Status Reason Start Date Expiration Date Visits Requested Visits Authorized [id number] Authorized PCP Requested Referral 09/17/2022 09/17/2023 1 1 Summary Purpose Family History No Family History Records Found Additional Source Comments REASON FOR VISIT (unrecogniz ed section and content) Reason Comments Orders Reason Comments Established Patient Reason Comments New Patient Evaluation Reason Comments Imaging available for review Reason Comments Received Outside Medical Records Lab Res ults Care Teams (unrecognized sec tion and content) Team Status: Active Member Role Status Dates Sherman Larson , Primary Care Provider Active Team Status: Active Member Role Status Dates Sherman Larson , Primary Care Provider, Attending Provi regan Active Team Status: Inactive Member Role Status Dates Sherman Larson DO Primary Care Provider Active LAQUITA Mao Attending Provider Active Team Status: Inactive Member Role Status Dates Sherman Larson DO Primary Care Provider Active Hien Poole APRN Attending Provider Active Team Status: Inactive Member Role Status Dates Sherman Larson DO Primary Care Provider Active Referral Self Attending Provider Active Team Status: Active Member Role Status Dates Sherman Larson DO Primary Care Provider Active Hien Poole APRN Attending Provider Active Team Status: Inactive Member Role Status Dates Sherman Larson , Primary Care Provider, Attending Provi regan Active Rosanne Dumont , [employer] Other Provider Active Team Status: Inactive Member Role Status Dates Sherman Larson DO Primary Care Provider Active Dawn Sow DO Referring Provider Active Referral Self Attending Provider Active Team Status: Inactive Member Role Status Dates Sherman Larson DO Primary Care Provider, Attending Provi regan Active [employer] Application Administrator Relationship Specialty Start Date End Date Sherman Larson DO [address] [place] [phone] PCP - General Family Medicine 01/15/16 Enterprise Application Administrator Relationship Specialty Start Date End Date Sherman Larson, [address] [phone] PCP - General Family Medicine 01/15/16 Enterprise Application Administrator Relationship Specialty Start Date End Date Sherman Larson, [address] [phone] PCP - General Family Medicine 01/15/16 Enterprise Application Administrator Relationship Specialty Start Date End Date Sherman Larson, [address] [phone] PCP - General Family Medicine 01/15/16 Enterprise Application Administrator Relationship Specialty Start Date End Date Sherman Larson, [address] [phone] PCP - General Family Medicine 01/15/16 Enterprise Application Administrator Relationship Specialty Start Date End Date Sherman Larson, [address] [phone] PCP - General Family Medicine 01/15/16 Enterprise Application Administrator Relationship Specialty Start Date End Date Sherman Larson, [address] [phone] PCP - General Family Medicine 01/15/16 Goals (unrecognized section and content) Goals may be documented in a n alternate section Source Comments (unrecognize d section and content) In the event this informatio n is protected by the Federal Confidentiality of Alcohol and Drug Abuse Patient Records regulations: The Federal rules restrict any use of the information to criminally investigate or prosecute any alcohol or drug abuse patient.[facility] the event this information is protected by the Federal Confidentiality of Alcohol and Drug Abuse Patient Records regulations: The Federal rules restrict any use of the information to criminally investigate or prosecute any alcohol or drug abuse patient.[facility] the event this information is protected by the Federal Confidentiality of Alcohol and Drug Abuse Patient Records regulations: The Federal rules restrict any use of the information to criminally investigate or prosecute any alcohol or drug abuse patient.[facility] the event this information is protected by the Federal Confidentiality of Alcohol and Drug Abuse Patient Records regulations: The Federal rules restrict any use of the information to criminally investigate or prosecute any alcohol or drug abuse patient.[facility] the event this information is protected by the Federal Confidentiality of Alcohol and Drug Abuse Patient Records regulations: The Federal rules restrict any use of the information to criminally investigate or prosecute any alcohol or drug abuse patient.[facility] the event this information is protected by the Federal Confidentiality of Alcohol and Drug Abuse Patient Records regulations: The Federal rules restrict any use of the information to criminally investigate or prosecute any alcohol or drug abuse patient.[facility] the event this information is protected by the Federal Confidentiality of Alcohol and Drug Abuse Patient Records regulations: The Federal rules restrict any use of the information to criminally investigate or prosecute any alcohol or drug abuse patient.[facility] the event this information is protected by the Federal Confidentiality of Alcohol and Drug Abuse Patient Records regulations: The Federal rules restrict any use of the information to criminally investigate or prosecute any alcohol or drug abuse patient.[facility] the event this information is protected by the Federal Confidentiality of Alcohol and Drug Abuse Patient Records regulations: The Federal rules restrict any use of the information to criminally investigate or prosecute any alcohol or drug abuse patient.[facility] the event this information is protected by the Federal Confidentiality of Alcohol and Drug Abuse Patient Records regulations: The Federal rules restrict any use of the information to criminally investigate or prosecute any alcohol or drug abuse patient.[facility] INFORMATION SOURCE (unrecogn ized section and content) DATE CREATED AUTHOR 02/05/2023 [facility] DATE CREATED AUTHOR AUTHOR'S ORGANIZ ATION 02/24/2023 [facility] DATE CREATED AUTHOR AUTHOR'S ORGANIZ ATION 09/24/2023 [facility] FOR RECORDS PERTAINING TO PATIENTS WHO ARE OR HAVE BEEN ENROLLED IN A CHEMICAL DEPENDENCY/SUBSTANCEABUSE PROGRAM, SOME INFORMATION MAY BE OMITTED. This clinical summary was aggregated from multiple sources. Caution should be exercised in using it in the provision of clinical care. This summary normalizes information from multiple sources, and as a consequence, information in this document may materially change the coding, format and clinical context of patient data. In addition, data may be omitted in some cases. CLINICAL DECISIONS SHOULD BE BASED ON THE PRIMARY CLINICAL RECORDS. [employer] provides no warranty or guarantee of the accuracy or completeness of information in this document.
== END 2023-10-02 12:50 | disposition home or self-care (01) ==
LOC: VC 12:50
PROVIDERS: PCP Radiology Diagnostic Radiology; Visit Provider Radiology Diagnostic Radiology
DX: I83.813 Varicose veins of bilateral lower extremities with pain (principal)
CPT/HCPCS: 36466

== ENCOUNTER 2023-10-08 11:34 | Outpatient (OUT) | payer MEDICARE, OTHER, SELFPAY ==
--- NOTE | 2023-10-08 11:35 | VEIN_ITS ---
Patient Name: OXANA CASTRO MR#: [id number] : 1955 Exam Date: 10/08/2023 Ordering Doctor: DR COLTON HAMLIN M.D. RADIOLOGY REPORT PROCEDURE: VC EXT VENOUS RT LMTD COMPARISON: VC EXT VENOUS RT LMTD, 08/26/2023. INDICATIONS: I80.01 Phlebitis of superficial veins of rt lower extremity TECHNIQUE: Lower extremity samson scale and Duplex Doppler evaluation of the deep venous system from the inguinal ligament through the calf veins. FINDINGS: REGION: Right lower extremity. THROMBI: Negative for DVT. Varithena induced thrombus visualized at mid/med calf and mid/med thigh. COMPRESSIBILITY: Non-compressible segments corresponding to thrombus FLOW: Areas of no flow corresponding to thrombus OTHER: No patent varicose veins remain. CONCLUSION: 1. 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 Dictated by: Alan Hernández M.D. on 10/08/2023 at 12:18 Approved by: Alan Hernández M.D. on 10/08/2023 at 12:18
--- NOTE | 2023-10-08 11:35 | VEIN_ITS ---
Patient Name: OXANA CASTRO MR#: [id number] : 1955 Exam Date: 10/08/2023 Ordering Doctor: DR COLTON HAMLIN M.D. RADIOLOGY REPORT PROCEDURE: [facility] EST [facility] - OFFICE VISIT FOLLOW UP [facility] PROGRESS NOTES: The patient reports improvement in leg symptoms. There has been interval reduction in varicosities. The patient has followed our recommendations to walk 20-30 minutes once or twice per day since the procedure. Physical exam demonstrates decrease in varicosities of the right leg. Persistent varicosities are identified along the left lying. Review of the ultrasound performed the same day demonstrates occlusive thrombus extending throughout the treated vein(s), see separate report, consistent with a successful ablation. No thrombus extending into or beyond the saphenofemoral junction. The patient expressed a desire to proceed with treatment of remaining incompetent varicosities. The patient was informed that treatment was a process and would require 1-2 procedures/sessions. [facility] IM[facility]: 1. Successful ablation of the remaining right leg treated branch saphenous vein(s). 2. Persistent left leg varicose veins and bilateral lower extremity chronic skin changes and edema. PLAN: 1. Microfoam chemical ablation of left leg branch saphenous varicosities. Nurse notes, history and physical were reviewed and confirmed, see attached forms. The nurse was present throughout the physical exam and consultation Dictated by: Alan Hernández M.D. on 10/08/2023 at 12:18 Approved by: Alan Hernández M.D. on 10/08/2023 at 12:20
--- OUTSIDE RECORDS SUMMARY | 2023-10-08 11:39 | XMS_ITS | CCD ---
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 Role Phone Rosanne Dumont Unavailable Sherman Larson Unavailable DO Sherman Larson Primary Care Provider [phone] DO Sherman Larson Attending Provider [phone] DO Dawn Sow Referring Provider Self, Referral Attending Provider Unavailable Sherman Larson DO Primary Care Provider Sherman Larson DO Primary Care Provider Heidi Sanchez Unavailable SHERMAN LARSON Primary Care Unavailable OSCAR, KHALED Referring Unavailable OSCAR, KHALED Attending Unavailable SHERMAN LARSON Primary Care Unavailable OSCAR, KHALED Attending Unavailable SHERMAN LARSON Primary Care Unavailable ЮЛИЯ ODOM Referring Unavailabl e SHERMAN LARSON Primary Care Unavailable ЮЛИЯ OODM Attending Unavailabl e ЮЛИЯ ODOM Referring Unavailabl e SHERMAN LARSON Primary Care Unavailable OSCAR, KHALED Referring Unavailable SHERMAN LARSON Primary Care Unavailable MAVIS ACUNA Attending Unavailable DO Sherman Larson Primary Care Provider DO Sherman Larson Attending Provider WALTER Poole Attending Provider [phone] WALTER Dumont Other Provider WALTER Poole Attending Provider Salvador, DO Whitaker Primary Care Provider [phone] Stephans, DO Sherman Attending Provider Self, Referral Attending Provider Unavailable Stephans, Sherman Primary Care Provider [phone] WALTER Poole Attending Provider [phone] Self, Referral Attending Provider Unavailable Salvador, DO Whitaker Attending Provider Eli, TECHNOLOGY TRAINER-C Judith A Attending Provider Eli, Judith A [...] 300 mg by mouth once daily [place] Active 300 MG PO Daily March 24, [...] Drug Class(es) Dates Sig (Normalized) Sig (Original) [id number] 200 actuat albuterol 0.09 mg/actuat metered dose [...] sources) Long-term current use of insulin; 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 PERFORMED BY: [place] [address] PATHOLOGIST HUMAN RESOURCE OFFICER LOCO PERRY M.D. [facility] Comment on above: Performed By: #### C USUP #### [place] [id number] [place] A1C HEMOGLOBINon 09-09-2023 HbA1c (Bld) [Mass fraction] 8.3 % [employer] Other Glucose - FINGER STICKon Glucose [Mass/Vol] 175 mg/dL [employer] Other HbA1c (Bld) [Mass fraction]o n 09-09-2023 A1C HEMOGLOBIN [facility] [employer] Other MM screening mammo BI w/CADo n 07-15-2023 MM screening mammo BI w/CAD [facility] [place] [address] [place], [place] [id number] Mammography Report Signed Patient: Magy Castro MR#: [id number] : 1955 Acct:[id number] Age/Sex: 67 / F ADM Date: 07/15/23 Loc: [place] Room: Type: [facility] Attending Dr: Referral Self Copies to: Sherman [...] Jennifer Yarbrough M.D.07/15/2023 2:50 PM Dictation Location: [facility] Transcribed By: SAL 07/15/23 1450 Dictated By: Jennifer Yarbrough MD 07/15/23 1443 Signed By: 07/15/23 1450 Normal [facility] Alanine aminotransferase [En zymatic activity/volume] in Serum or PlasmaOrdered By: Sherman Larson on 03-31-2023 ALT [Catalytic activity/Vol] 17 U/L 7-52 [facility] Albumin [Mass/volume] in Ser um or Plasma by Bromocresol green (BCG) dye binding methoOrdered By: Sherman Larson on 03-31-2023 Albumin BCG dye [Mass/Vol] 4.1 g/dL 3.5-5.7 [facility] Alkaline phosphatase [Enzyma tic activity/volume] in Serum or PlasmaOrdered By: Sherman Larson on 03-31-2023 ALP [Catalytic activity/Vol] 55 U/L 34-104 [facility] Aspartate aminotransferase [ Enzymatic activity/volume] in Serum or PlasmaOrdered By: Sherman Larson on 03-31-2023 AST [Catalytic activity/Vol] 14 U/L 13-39 [facility] Basophils Auto (Bld) [#/Vol] Ordered By: Sherman Larson on 03-31-2023 Basophils (Bld) [#/Vol] 0.0 10*3/uL 0.0-0.2 [facility] Basophils/100 WBC Auto (Bld) Ordered By: Sherman Larson on 03-31-2023 Basophils/100 WBC (Bld) 0.6 % . [facility] Bilirubin.total [Mass/volume ] in Serum or PlasmaOrdered By: Sherman Larson on 03-31-2023 Bilirubin [Mass/Vol] 0.5 mg/dL 0.3-1.0 [facility] Calcium [Mass/volume] in Ser um or PlasmaOrdered By: Sherman Larson on 03-31-2023 Calcium [Mass/Vol] 9.2 mg/dL 8.6-10.3 [facility] Carbon dioxide, total [Moles /volume] in Serum or PlasmaOrdered By: Sherman Larson on 03-31-2023 CO2 [Moles/Vol] 24.9 mmol/L 21.0-31.0 [facility] Chloride [Moles/volume] in [place] or PlasmaOrdered By: Sherman Larson on 03-31-2023 Chloride [Moles/Vol] 103 mmol/L 98-107 [facility] Cholesterol [Mass/volume] in Serum or PlasmaOrdered By: Sherman Larson on 03-31-2023 Cholesterol [Mass/Vol] 144 mg/dL 140-200 [facility] Comment on above: Chol less than 200 m g/dl low riskChol 201-239 mg/dl borderline riskChol 240 mg/dl and greater high risk Cholesterol in LDL Calc [Mas s/Vol]Ordered By: Sherman Larson on 03-31-2023 Cholesterol in LDL [Mass/Vol] 61 mg/dL 0-100 [facility] Comment on above: LDL ATP III CLASSIFI CATIONLDL less than 100 mg/dL OptimalLDL 100-129 mg/dL Near or above optimalLDL 130-159 mg/dL Borderline highLDL 160-189 mg/dL HighLDL greater than 189 mg/dL Very high Cholesterol in VLDL Calc [Ma ss/Vol]Ordered By: Sherman Larson on 03-31-2023 Cholesterol in VLDL [Mass/Vol] 43 mg/dL [facility] Complete Blood Count Auto Di ffon 03-31-2023 Basophils (Bld) [#/Vol] 0.0 10*3/uL Normal 0.0-0.2 [facility] Comment on above: Order Comment: Reaso n for Exam Hyperlipidemia Result Comment: PERF ORMED BY: [place] [address] PATHOLOGIST HUMAN RESOURCE OFFICER LOCO PERRY M.D. Performed By: #### C BC #### [facility] [address] [place] [address] [place] Basophils/100 WBC (Bld) 0.6 % Normal . [facility] Comment on above: Order Comment: Reaso n for Exam Hyperlipidemia Performed By: #### C BC #### [facility] [address] [place] [address] [place] Eosinophils (Bld) [#/Vol] 0.1 10*3/uL Normal 0.0-0.45 [facility] Comment on above: Order Comment: Reaso n for Exam Hyperlipidemia Performed By: #### C BC #### [facility] [address] [place] [address] [place] Eosinophils/100 WBC (Bld) 2.0 % Normal . [facility] Comment on above: Order Comment: Reaso n for Exam Hyperlipidemia Performed By: #### C BC #### [facility] [address] [place] [address] [place] Erythrocyte distribution width (RBC) [Ratio] 17.0 % High 11.9-15.3 [facility] Comment on above: Order Comment: Reaso n for Exam Hyperlipidemia Performed By: #### C BC #### [facility] [address] [place] [address] [place] Hematocrit (Bld) [Volume fraction] 43.0 % Normal 34.0-46.4 [facility] Comment on above: Order Comment: Reaso n for Exam Hyperlipidemia Performed By: #### C BC #### [facility] [address] [place], [place] [id number] [place] Hemoglobin (Bld) [Mass/Vol] 13.9 g/dL Normal 11.8-15.4 [facility] Comment on above: Order Comment: Reaso n for Exam Hyperlipidemia Performed By: #### C BC #### [address] Lymphocytes (Bld) [#/Vol] 1.8 10*3/uL Normal 1.00-4.8 [facility] Comment on above: Order Comment: Reaso n for Exam Hyperlipidemia Performed By: #### C BC #### [address] Lymphocytes/100 WBC (Bld) 25.6 % Normal . [facility] Comment on above: Order Comment: Reaso n for Exam Hyperlipidemia Performed By: #### C BC #### [address] MCH (RBC) [Entitic mass] 26.9 pg Normal 24.7-34.3 [facility] Comment on above: Order Comment: Reaso n for Exam Hyperlipidemia Performed By: #### C BC #### [address] MCV (RBC) [Entitic vol] 82.9 fL Normal 80-[address] [facility] Comment on above: Order Comment: Reaso n for Exam Hyperlipidemia Performed By: #### C BC #### [address] Mean Corpuscular HGB Conc 32.4 g/dL Normal 32.0-35.0 [facility] Comment on above: Order Comment: Reaso n for Exam Hyperlipidemia Performed By: #### C BC #### [place] [address] [place] Monocytes (Bld) [#/Vol] 0.5 10*3/uL Normal 0.0-0.8 [facility] Comment on above: Order Comment: Reaso n for Exam Hyperlipidemia Performed By: #### C BC #### [place] [address] [place] Monocytes/100 WBC (Bld) 7.5 % Normal . [facility] Comment on above: Order Comment: Reaso n for Exam Hyperlipidemia Performed By: #### C BC #### [facility] [address] [place] [address] [place] Neutrophils (Bld) [#/Vol] 4.6 10*3/uL Normal 1.8-7.7 [facility] Comment on above: Order Comment: Reaso n for Exam Hyperlipidemia Performed By: #### C BC #### [facility] [address] [place] [id number] [place] Neutrophils/100 WBC (Bld) 64.3 % Normal . [facility] Comment on above: Order Comment: Reaso n for Exam Hyperlipidemia Performed By: #### C BC #### [facility] [address] NRBC% 0.1 /100{WBC} Normal 0-0.5 [facility] Comment on above: Order Comment: Reaso n for Exam Hyperlipidemia Performed By: #### C BC #### [address] Platelet mean volume (Bld) [Entitic vol] 7.4 fL Normal 6.3-10.7 [facility] Comment on above: Order Comment: Reaso n for Exam Hyperlipidemia Performed By: #### C BC #### [facility] [address] [place] [address] [place] Platelets (Bld) [#/Vol] 298 10*3/uL Normal 150-450 [facility] Comment on above: Order Comment: Reaso n for Exam Hyperlipidemia Performed By: #### C BC #### [facility] [address] [place] [address] [place] RBC (Bld) [#/Vol] 5.19 10*6/uL High 3.60-5.00 [facility] Comment on above: Order Comment: Reaso n for Exam Hyperlipidemia Performed By: #### C BC #### [place] [address] [place] WBC (Bld) [#/Vol] 7.2 10*3/uL Normal 3.8-11.6 [facility] Comment on above: Order Comment: Reaso n for Exam Hyperlipidemia Performed By: #### C BC #### [facility] [address] Comprehensive Metabolic Pane riaz 03-31-2023 Albumin [Mass/Vol] 4.1 g/dL Normal 3.5-5.7 [facility] Comment on above: Order Comment: Reaso n for Exam Hyperlipidemia Performed By: #### C MP, LIPID #### [facility] [address] Albumin/Globulin [Mass ratio] 1.3 {ratio} Normal [facility] Comment on above: Order Comment: Reaso n for Exam Hyperlipidemia Performed By: #### C MP, LIPID #### [facility] [address] [place] [address] ALP [Catalytic activity/Vol] 55 U/L Normal 34-104 [facility] Comment on above: Order Comment: Reaso n for Exam Hyperlipidemia Performed By: #### C MP, LIPID #### [facility] [address] [place] [address] ALT [Catalytic activity/Vol] 17 U/L Normal 7-52 [facility] Comment on above: Order Comment: Reaso n for Exam Hyperlipidemia Performed By: #### C MP, LIPID #### [facility] [address] [place] [address] Anion gap [Moles/Vol] 12.2 mmol/L Normal 6.0-15.0 [facility] Comment on above: Order Comment: Reaso n for Exam Hyperlipidemia Performed By: #### C MP, LIPID #### [facility] [address] [place] [address] AST [Catalytic activity/Vol] 14 U/L Normal 13-39 [facility] Comment on above: Order Comment: Reaso n for Exam Hyperlipidemia Performed By: #### C MP, LIPID #### [facility] [address] [place] [address] Bilirubin [Mass/Vol] 0.5 mg/dL Normal 0.3-1.0 [facility] Comment on above: Order Comment: Reaso n for Exam Hyperlipidemia Performed By: #### C MP, LIPID #### [facility] [address] [place] [address] Calcium [Mass/Vol] 9.2 mg/dL Normal 8.6-10.3 [facility] Comment on above: Order Comment: Reaso n for Exam Hyperlipidemia Performed By: #### C MP, LIPID #### [facility] [address] Chloride [Moles/Vol] 103 mmol/L Normal 98-107 [facility] Comment on above: Order Comment: Reaso n for Exam Hyperlipidemia Performed By: #### C MP, LIPID #### [facility] [address] CO2 [Moles/Vol] 24.9 mmol/L Normal 21.0-31.0 [facility] Comment on above: Order Comment: Reaso n for Exam Hyperlipidemia Performed By: #### C MP, LIPID #### [facility] [address] [place] [address] Creatinine [Mass/Vol] 0.68 mg/dL Normal 0.60-1.20 [facility] Comment on above: Order Comment: Reaso n for Exam Hyperlipidemia Performed By: #### C MP, LIPID #### [facility] [address] [place] [address] GFR/1.73 sq M.predicted MDRD (S/P/Bld) [Vol rate/Area] mL/min/{1.73_m2} Normal [facility] Comment on above: Order Comment: Reaso n for Exam Hyperlipidemia Performed By: #### C MP, LIPID #### [facility] [address] Globulin (S) [Mass/Vol] 3.1 g/dL Normal [facility] Comment on above: Order Comment: Reaso n for Exam Hyperlipidemia Performed By: #### C MP, LIPID #### [facility] [address] [place] [address] [place] Glucose [Mass/Vol] 139 mg/dL High 70-100 [facility] Comment on above: Order Comment: Reaso n for Exam Hyperlipidemia Result Comment: [facility] Glucose Reference Range is dependent on time and content of last meal. Glucose of more than 200 mg/dL in a nonstressed, ambulatory subject supports the diagnosis of Diabetes Mellitus. ADA recommended reference range Performed By: #### C MP, LIPID #### [facility] [address] Potassium [Moles/Vol] 4.1 mmol/L Normal 3.5-5.1 [facility] Comment on above: Order Comment: Reaso n for Exam Hyperlipidemia Performed By: #### C MP, LIPID #### [facility] [address] Protein [Mass/Vol] 7.2 g/dL Normal 6.4-8.9 [facility] Comment on above: Order Comment: Reaso n for Exam Hyperlipidemia Performed By: #### C MP, LIPID #### [facility] [address] [place] [address] Sodium [Moles/Vol] 136 mmol/L Normal 136-145 [facility] Comment on above: Order Comment: Reaso n for Exam Hyperlipidemia Performed By: #### C MP, LIPID #### [facility] [address] [place] [address] [place] Urea nitrogen [Mass/Vol] 19 mg/dL Normal 7-25 [facility] Comment on above: Order Comment: Reaso n for Exam Hyperlipidemia Performed By: #### C MP, LIPID #### [address] Creatinine [Mass/volume] in Serum or PlasmaOrdered By: Sherman Larson on 03-31-2023 Creatinine [Mass/Vol] 0.68 mg/dL 0.60-1.20 [facility] Creatinine [Mass/volume] in UrineOrdered By: Rosanne Dumont on 03-31-2023 Creatinine (U) [Mass/Vol] 70.0 mg/dL 11.0-20.0 [facility] Eosinophils Auto (Bld) [#/Vo l]Ordered By: Sherman Larson on 03-31-2023 Eosinophils (Bld) [#/Vol] 0.1 10*3/uL 0.0-0.45 [facility] Eosinophils/100 WBC Auto (Bl d)Ordered By: Sherman Larson on 03-31-2023 Eosinophils/100 WBC (Bld) 2.0 % . [facility] Erythrocyte distribution wid th Auto (RBC) [Ratio]Ordered By: Sherman Larson on 03-31-2023 Erythrocyte distribution width (RBC) [Ratio] 17.0 % 11.9-15.3 [facility] Globulin Calc (S) [Mass/Vol] Ordered By: Sherman Larson on 03-31-2023 Globulin (S) [Mass/Vol] 3.1 g/dL [facility] Glucose [Mass/volume] in Ser um or PlasmaOrdered By: Sherman Larson on 03-31-2023 Glucose [Mass/Vol] 139 mg/dL 70-100 [facility] Comment on above: ADA recommended refe rence rangeRandom Glucose Reference Range is dependent on time and content of last meal. Glucose of more than 200 mg/dL in a nonstressed, ambulatory subject supports the diagnosis of Diabetes Mellitus. Hematocrit Auto (Bld) [Volum e fraction]Ordered By: Sherman Larson on 03-31-2023 Hematocrit (Bld) [Volume fraction] 43.0 % 34.0-46.4 [facility] Hemoglobin [Mass/volume] in BloodOrdered By: Sherman Larson on 03-31-2023 Hemoglobin (Bld) [Mass/Vol] 13.9 g/dL 11.8-15.4 [facility] Leukocytes [#/volume] correc kedar for nucleated erythrocytes in Blood by Automated counOrdered By: Sherman Larson on 03-31-2023 WBC corrected for nucl RBC Auto (Bld) [#/Vol] 7.2 10*3/uL 3.8-11.6 [facility] Lipid Panelon 03-31-2023 Cholesterol [Mass/Vol] 144 mg/dL Normal 140-200 [facility] Comment on above: Order Comment: Reaso n for Exam Hyperlipidemia Result Comment: Chol less than 200 mg/dl low risk Chol 201-239 mg/dl borderline risk Chol 240 mg/dl and greater high risk Performed By: #### C MP, LIPID #### [facility] [address] [place] [address] Cholesterol in HDL [Mass/Vol] 39 mg/dL Normal 23-92 [facility] Comment on above: Order Comment: Reaso n for Exam Hyperlipidemia Result Comment: HDL CHOL ATP-III CLASSIFICATION Cardiovascular Risk HDL > or equal to 60 mg/dL LOW HDL < 40 mg/dL HIGH Performed By: #### C MP, LIPID #### [facility] [address] Cholesterol.total/Zahra sterol in HDL [Mass ratio] 3.7 {ratio} Normal <5.0 [facility] Comment on above: Order Comment: Reaso n for Exam Hyperlipidemia Result Comment: PERF ORMED BY: [place] [address] PATHOLOGIST HUMAN RESOURCE OFFICER LOCO PERRY M.D. Performed By: #### C MP, LIPID #### [facility] [address] LDL Cholesterol,Calculated 61 mg/dL Normal 0-100 [facility] Comment on above: Order Comment: Reaso n for Exam Hyperlipidemia Result Comment: LDL ATP III CLASSIFICATION LDL less than 100 mg/dL Optimal LDL 100-129 mg/dL Near or above optimal LDL 130-159 mg/dL Borderline high LDL 160-189 mg/dL High LDL greater than 189 mg/dL Very high Performed By: #### C MP, LIPID #### [address] Triglyceride w/Reflex 218 mg/dL High 0-149 [facility] Comment on above: Order Comment: Reaso n for Exam Hyperlipidemia Result Comment: TRIG ATP III CLASSIFICATION TRIG less than 150 mg/dL Normal TRIG 150-199 mg/dL Borderline high TRIG 200-500 mg/dL High TRIG greater than 500 mg/dL Very high Standard traceable to the Center for Disease Conrtrol and Prevention (CDC) test method. Performed By: #### C MP, LIPID #### [facility] [address] VLDL CHOLESTEROL 43 mg/dL Normal [facility] Comment on above: Order Comment: Reaso n for Exam Hyperlipidemia Performed By: #### C MP, LIPID #### [facility] [address] [place] [address] [place] Lymphocytes Auto (Bld) [#/Vo l]Ordered By: Sherman Larson on 03-31-2023 Lymphocytes (Bld) [#/Vol] 1.8 10*3/uL 1.00-4.8 [facility] Lymphocytes/100 WBC Auto (Bl d)Ordered By: Sherman Larson on 03-31-2023 Lymphocytes/100 WBC (Bld) 25.6 % . [facility] MCH Auto (RBC) [Entitic mass ]Ordered By: Sherman Larson on 03-31-2023 MCH (RBC) [Entitic mass] 26.9 pg 24.7-34.3 [facility] MCHC Auto (RBC) [Mass/Vol]Or dered By: Sherman Larson on 03-31-2023 MCHC (RBC) [Mass/Vol] 32.4 g/dL 32.0-35.0 [facility] MCV Auto (RBC) [Entitic vol] Ordered By: Sherman Larson on 03-31-2023 MCV (RBC) [Entitic vol] 82.9 fL 80-[address] [facility] MicroAlb Creat Ratio,Uon Albumin DL <= 20 mg/L (U) [Mass/Vol] 0.9 mg/dL Normal 0.0-1.8 [facility] Comment on above: Order Comment: Reaso n for Exam Type 2 diabetes mellitus Performed By: #### B 12, URMACRERAT #### [facility] [address] [place] [id number] [facility] Creatinine, Urine (Random) 70.0 mg/dL High 11.0-20.0 [facility] Comment on above: Order Comment: Reaso n for Exam Type 2 diabetes mellitus Performed By: #### B 12, URMACRERAT #### [facility] [address] [place] [address] [place] Microalbumin/Creatinine Ratio 12.0 mg/g Normal 0.0-30.0 [facility] Comment on above: Order Comment: Reaso n for Exam Type 2 diabetes mellitus Result Comment: 30-3 00 mg/g indicates an increased risk for diabetic nephropathy. Greater than 300 mg/g is consistent with clinical nephropathy. (Am. J. Kidney Disease 1995, 25:107) PERFORMED BY: [place] [address] PATHOLOGIST HUMAN RESOURCE OFFICER LOCO PERRY M.D. Performed By: #### B 12, DEMETRIA #### [address] Microalbumin [Mass/volume] i n UrineOrdered By: Rosanne Dumont on 03-31-2023 Albumin DL <= 20 mg/L (U) [Mass/Vol] 0.9 mg/dL 0.0-1.8 [facility] Monocytes Auto (Bld) [#/Vol] Ordered By: Sherman Larson on 03-31-2023 Monocytes (Bld) [#/Vol] 0.5 10*3/uL 0.0-0.8 [facility] Monocytes/100 WBC Auto (Bld) Ordered By: Sherman Larson on 03-31-2023 Monocytes/100 WBC (Bld) 7.5 % . [facility] Neutrophils Auto (Bld) [#/Vo l]Ordered By: Sherman Larson on 03-31-2023 Neutrophils (Bld) [#/Vol] 4.6 10*3/uL 1.8-7.7 [facility] Neutrophils/100 WBC Auto (Bl d)Ordered By: Sherman Larson on 03-31-2023 Neutrophils/100 WBC (Bld) 64.3 % . [facility] No Panel InformationOrdered By: Sherman Larson on 03-31-2023 Estimated GFR (CKD-EPI) > 60.0 mL/Min [facility] Creatinine Clearance (Chem N/A [facility] Nucleated erythrocytes [Pres ence] in Blood by Automated countOrdered By: Sherman Larson on 03-31-2023 Nucleated RBC Auto Ql (Bld) 0.1 /100{WBC} 0-0.5 [facility] Platelet mean volume Auto (B ld) [Entitic vol]Ordered By: Sherman Larson on 03-31-2023 Platelet mean volume (Bld) [Entitic vol] 7.4 fL 6.3-10.7 [facility] Platelets Auto (Bld) [#/Vol] Ordered By: Sherman Larson on 03-31-2023 Platelets (Bld) [#/Vol] 298 10*3/uL 150-450 [facility] Potassium [Moles/volume] in Serum or PlasmaOrdered By: Sherman Larson on 03-31-2023 Potassium [Moles/Vol] 4.1 mmol/L 3.5-5.1 [facility] Protein [Mass/volume] in Ser um or PlasmaOrdered By: Sherman Larson on 03-31-2023 Protein [Mass/Vol] 7.2 g/dL 6.4-8.9 [facility] RBC Auto (Bld) [#/Vol]Ordere d By: Sherman Larson on 03-31-2023 RBC (Bld) [#/Vol] 5.19 10*6/uL 3.60-5.00 [facility] Serum or plasma albumin/glob ulin mass ratioOrdered By: Sherman Larson on 03-31-2023 Albumin/Globulin [Mass ratio] 1.3 {ratio} [facility] Serum or plasma anion gap de terminationOrdered By: Sherman Larson on 03-31-2023 Anion gap [Moles/Vol] 12.2 mmol/L 6.0-15.0 [facility] Serum or plasma high density lipoprotein (HDL) cholesterol measurementOrdered By: Sherman Larson on 03-31-2023 Cholesterol in HDL [Mass/Vol] 39 mg/dL 23-92 [facility] Comment on above: HDL CHOL ATP-III CLA SSIFICATION Cardiovascular RiskHDL > or equal to 60 mg/dL LOWHDL < 40 mg/dL HIGH Serum or plasma total choles terol/high density lipoprotein (HDL) cholesterol mass ratOrdered By: Sherman Larson on 03-31-2023 Cholesterol.total/Zahra sterol in HDL [Mass ratio] 3.7 {ratio} <5.0 [facility] Sodium [Moles/volume] in Ser um or PlasmaOrdered By: Sherman Larson on 03-31-2023 Sodium [Moles/Vol] 136 mmol/L 136-145 [facility] Thyroid Stimulating Hormoneo n 03-31-2023 TSH Qn 2.43 m[IU]/L Normal 0.45-5.33 [facility] Comment on above: Order Comment: Reaso n for Exam Hyperlipidemia Result Comment: PERF ORMED BY: [place] [address] PATHOLOGIST HUMAN RESOURCE OFFICER LOC[employer] PERRY M.D. Performed By: #### T SH3 #### [address] Thyrotropin [Units/volume] i n Serum or PlasmaOrdered By: Sherman Larson on 03-31-2023 TSH Qn 2.43 m[IU]/L 0.45-5.33 [facility] Triglyceride [Mass/volume] i n Serum or PlasmaOrdered By: Sherman Larson on 03-31-2023 Triglyceride [Mass/Vol] 218 mg/dL 0-[address] [facility] Comment on above: TRIG ATP III CLASSIF ICATIONTRIG less than 150 mg/dL NormalTRIG 150-199 mg/dL Borderline highTRIG 200-500 mg/dL High TRIG greater than 500 mg/dL Very highStandard traceable to the Center for Disease Conrtrol and Prevention (CDC) test method. Urea nitrogen [Mass/volume] in Serum or PlasmaOrdered By: Sherman Larson on 03-31-2023 Urea nitrogen [Mass/Vol] 19 mg/dL 05-05 [facility] Urine microalbumin/creatinin e mass ratioOrdered By: Rosanne Dumont on 03-31-2023 Albumin/Creatinine DL <= 20 mg/L (U) [Mass ratio] 12.0 mg/g 0.0-30.0 [facility] Comment on above: 30-300 mg/g indicate s an increased risk for diabetic nephropathy. Greater than 300 mg/g is consistent with clinical nephropathy. (Am. J. Kidney Disease 1995, 25:107) Vitamin B12on 03-31-2023 Cobalamin (Vitamin B12) [Mass/Vol] 221 pg/mL Normal 180-914 [facility] Comment on above: Order Comment: Reaso n for Exam Type 2 diabetes mellitus;B12 deficiency Result Comment: PERF ORMED BY: [address] [address] PATHOLOGIST HUMAN RESOURCE OFFICER LOCO PERRY M.D. Performed By: #### B 12, DEMETRIA #### [facility] [address] Vitamin B12 ser/plasOrdered By: Rosanne Dumont on 03-31-2023 Cobalamin (Vitamin B12) [Mass/Vol] 221 pg/mL 180-914 [facility] WBC Auto (Bld) [#/Vol]Ordere d By: Sherman Larson on 03-31-2023 WBC (Bld) [#/Vol] 7.2 10*3/uL 3.8-11.6 [facility] ANES POSTPROC EVALon 023 ANES POSTPROC EVAL HNO ID: [id number] Author: Mavis Acuna MD Service: Anesthesiology Author Type: Anesthesiologist Type: Anesthesia Postprocedure Evaluation Filed: 02/20/2023 11:09 AM Note Text: POST ANESTHESIA EVALUATION NOTE : 1955 Procedure Summary Date: 02/19/23 Room / Location: [facility] Endoscopy - ENDO Anesthesia Start: 1412 [...] DATE: February 19, 2023 TIME: 1510 CSN: [id number] Normal [facility] ANES PRE-OPon 02-19-2023 ANES PRE-OP HNO ID: [id number] Author: Mavis Acuna MD Service: Anesthesiology Author Type: Anesthesiologist Type: Anesthesia Preprocedure Evaluation Filed: 02/19/2023 1:52 PM Note Text: ANESTHESIOLOGY DAY OF SURGERY NOTE : 1955 Procedure Information Date/Time: 02/19/23 1230 Scheduled providers: Lior Lintno MD; SIGRID Neal; Mavis Acuna MD Procedure: EGD - THERAPEUTIC, EUS, OR TUBE INTERVENTIONS Location: [facility] Endoscopy - ENDO Estimated body mass [...] and consent discussed: yes. Patient / Responsible Democrat agrees to proceed: yes Patient / Surrogate [...] mouth once (more content not included)... Normal [facility] CYTOLOGY NON-GYNon 3 CASE REPORT Normal [facility] Comment on above: Order Comment: Speci men Type: SPECIMEN OBTAINED BY ASPIRATION Ordering Facility: [facility] Address: [address] [place] [address] Result Comment: [facility] Cytology Report Case: [id number] Authorizing Provider: Lior Linton MD Collected: 02/19/2023 02:27 PM Ordering Location: [facility] Received: 02/20/2023 07:02 AM Endoscopy - ENDO Pathologist: Mat Montez MD Specimen: PANCREAS FINE NEEDLE ASPIRATION Performed By: #### C YTONON #### [facility] CLIA [id number] [address] [place] [address] OF [facility] CLIA [id number] [address] [place] [address] [place] [facility] CLINICAL HISTORY Pancreatic cyst Normal [facility] Comment on above: Order Comment: Speci men Type: SPECIMEN OBTAINED BY ASPIRATION Ordering Facility: [facility] Address: [address] [address] Performed By: #### C YTONON #### [facility] CLIA [id number] [address] STATES OF [place] [facility] CLIA [id number] DIAGNOSIS COMMENT Normal [facility] Comment on above: Order Comment: Speci men Type: SPECIMEN OBTAINED BY ASPIRATION Ordering Facility: [facility] Address: [address] [place] [id number] Result Comment: The specimen is limited in cellularity. Immunohistochemical stain for AE1/AE3 is positive. Synaptophysin, chromogranin and inhibin are negative. The immunohistochemical staining pattern supports the above diagnosis. Selected slides were reviewed in consultation with Dr. Oconnor, who concurs. Laboratory Developed Test (LDT) Disclaimer: Performance characteristics of immunohistochemical, immunofluorescent and chromogenic in-situ hybridization tests have been determined by the performing laboratory within [facility]???s [facility] Pathology and Laboratory Medicine [place] ([facility], [facility], [facility], [facility], [facility], or [facility]) in a manner consistent with CLIA requirements. [...] condition. Performed By: #### C JANES #### [facility] CLIA [id number] [address] [facility] [id number] [facility] CLIA [id number] FINAL DIAGNOSIS [facility] Comment on above: Order Comment: Speci men Type: SPECIMEN OBTAINED BY ASPIRATION Ordering Facility: [facility] Address: [address] [facility] [place] [id number] Result Comment: A - PANCREAS FINE NEEDLE ASPIRATION Negative for malignant cells. See comment. The following cell blocks were associated with this case: A1 Cell Block, Alcohol Fixed Performed By: #### C YTONON #### [facility] CLIA [id number] [facility] [address] LABORATORY CLIA [id number] [address] [place] [address] STATES OF [place] [facility]FORM[facility] LAB Normal [facility] Comment on above: Order Comment: Speci men Type: SPECIMEN OBTAINED BY ASPIRATION Ordering Facility: [facility] Address: [address] Result Comment: Tech nical component, critical care nurse screening performed at [facility], [address] [place] [address] CLIA# [id number] Diagnostic interpretation performed at [facility], [address] [place] [address] CLIA# [id number] Advanced Manager: Quintin Sal M.D. Performed By: #### C YTONON #### [facility] CLIA [id number] [address] [place] [address] OF [facility] CLIA [id number] [address] [place] [address] STATES OF [facility] GROSS DESCRIPTION Normal [facility] Comment on above: Order Comment: Speci men Type: SPECIMEN OBTAINED BY ASPIRATION Ordering Facility: [facility] Address: [address] [place] [address] Result Comment: Rhea PANCHAL FINE NEEDLE ASPIRATION 30 cc cloudy red CytoLyt with material. ThinPrep and Cell Block prepared. Performed By: #### C YTONON #### [facility] CLIA [id number] [address] [place] [address] OF [facility] CLIA [id number] [address] [place] [address] [place] EGD - THERAPEUTIC, EUS, OR T UBE INTERVENTIONSon 02-19-2023 [facility] GLUCOSE, BLOOD (POC)on 02-19 Glucose [Mass/Vol] 198 mg/dL Abnormal 74 - 99 mg/dL [facility] Glucose [Mass/Vol] 175 mg/dL Abnormal 74 - 99 mg/dL [facility] NURSING PROGon 02-19-2023 NURSING PROG HNO ID: [id number] Author: Lakhwinder Payan RN Service: Nursing Author [...] (RECOMMENDATION): None Electronically Signed By: Lakhwinder Payan [facility] NURSING PROG HNO ID: [id number] Author: Ekta Banegas RN Service: Nursing Author [...] (RECOMMENDATION): None Electronically Signed By: Ekta Banegas [facility] 02-19-2023 [facility] Gastrointestinal Endoscopy Patient Name: Magy Castro Procedure Date: 02/19/2023 1:57 PM Date of : 1955 Admit Type: Outpatient Age: 67 Room: [place] [address] Gender: Female Note Status: Finalized Attending MD: [...] on cytopathology. Procedure Code(s): --- Professional --- 33976, Esophagogastroduodenos copy, flexible, (more content not included)... Normal [facility] A1C HEMOGLOBINon 02-10-2023 HbA1c (Bld) [Mass fraction] 7.3 % [employer] Other Glucose - FINGER STICKon Glucose [Mass/Vol] 167 mg/dL [employer] Other HbA1c (Bld) [Mass fraction]o n 02-10-2023 A1C HEMOGLOBIN [employer] Other VINCEAllison 02-04-2023 VINCEN Telephone ([facility]) MAGY CASTRO ([id number]) 1955 F Date Time Provider Department 02/04/23 ORVILLE ZAMARRIPA (SAMARIA) [facility] During your visit today, we recorded the following information about you: Orville Zamarripa LPN 02/04/2023 11:44 AM Signed Scanned into patients chart Allergies As of Date: 02/04/2023 (No Known Allergies) Date Reviewed: 02/02/2023 Reviewed by: Christophe Shaffer APRN.PASSPORT APPLICATION EXAMINER - Fully Assessed Reason for Visit: Received Outside Medical Records [3575] Cmt: Lab Results Prescriptions as of 02/04/2023 [...] Status:Closed by ORVILLE ZAMARRIPA LPN on 02/04/23 [facility] HISTORY PHYSICALon HISTORY PHYSICAL HNO ID: [id number] Author: Christophe Shaffer APRN.PASSPORT APPLICATION EXAMINER Service: ? Author Type: Nurse Practitioner Type: HANDP Filed: 02/04/2023 5:52 PM Note Text: PREANESTHESIA CONSULT CLINIC TELEHEALTH VISIT Patient has been identified by name and date of : Yes This is a virtual visit using [employer] video visit. It require patient-provider interaction for [...] Self Scheduled Surgery: EGD with Dr. Lior Lintno on 02/19/2023 Subjective CHIEF COMPLAINT: No chief [...] Normal [facility] CNPNon 01-22-2023 RAHEEM Telephone (PAT) MAGY CASTRO ([id number]) 1955 F Date Time Provider Department 01/22/23 LIOR LINTON During your visit today, we recorded the following information about you: Heidi Parson RN 01/22/2023 12:18 PM Signed MRI images available for review. Heidi Parson RN ----- Message ----- From: Heidi Parson RN Sent: 01/13/2023 10:46 AM EDT To: Heidi Parson RN Spoke with pt. She will obtain MRCP disc from [facility] and send to our office. Heidi Parson RN ----- Message ----- From: Lior Linton MD Sent: 01/12/2023 5:41 PM EDT To: MARCEL Love: Please let me know when the MRCP disc is loaded into [employer] for my review. Lior Linton MD 02/03/2023 7:25 AM Signed MRCP images were reviewed. The images were downloaded to [facility] and the MRI was done at [facility]. Agree with the findings of the report. [...] Encounter Status:Closed by HEIDI PARSON on 02/03/23 [facility] CNOVon 01-07-2023 CNOV Office Visit (GASTNO ) MAGY CASTRO ([id number]) 1955 F Date Time Provider Department 01/07/23 [...] alcohol. 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. 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 [...] Normal [facility] HISTORY PHYSICALon HISTORY PHYSICAL HNO ID: [id number] Author: Lior Linton MD Service: ? Author [...] alcohol. 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. 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 [...] Normal [facility] A1C HEMOGLOBINon 11-04-2022 HbA1c (Bld) [Mass fraction] 7.9 % [employer] Other Glucose - FINGER STICKon Glucose [Mass/Vol] 212 mg/dL [employer] Other HbA1c (Bld) [Mass fraction]o n 11-04-2022 A1C HEMOGLOBIN [employer] Other CNPNon 10-30-2022 CNPN Telephone (GASTNO) MAGY CASTRO ([id number]) 1955 F Date Time Provider Department 10/30/22 LIOR LINTON During your visit today, we recorded the following information about you: Blanca Norton 10/30/2022 11:15 AM Signed Pt saw Dr. Rowland, at [facility] and was given Dr. Lniton's name to schedule a ERCP? Dr. Rowland [...] Date Reviewed: 09/17/2022 Reviewed by: Юлия Odom APRN.PASSPORT APPLICATION EXAMINER - Fully Assessed Reason for Visit: Orders [...] Encounter Status:Closed by ROMAIN VELA on 10/30/22 [facility] CNOVSPon 09-17-2022 CNOVSP Visit (SP) Office (GYNML) MAGY CASTOR ([id number]) 1955 F Date Time Provider Department 09/17/22 9:45 AM ЮЛИЯ ODOM During your visit today, we recorded the following information about you: Temperature Pulse Respiration Blood pressure 97.6 degrees 81/minute 14/minute 143/55 Weight 120.2 kg Юлия Odom APRN.[facility] 09/17/2022 12:59 PM Signed DATE: 09/17/2022 PROBLEM: [...] present, cervix not involved HNPCC screening negative ER/CT: negative 2. 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 Юлия Odom, WALTER.PASSPORT APPLICATION EXAMINER Medical Decision Making: Problems: Low: Stable chronic illness Data: Unique test result(s) reviewed: 1 Risk: Low: Low risk from testing/treatment Medical Decision Making Level: 3 - Low Referring Provider: ЮЛИЯ ODOM [[id number]] Allergies As of Date: 09/17/2022 (Not on File) Date Reviewed: 09/17/2022 Reviewed by: Юлия Odom APRN.PASSPORT APPLICATION EXAMINER - Fully Assessed Reason for Vi (more content not included)... Normal [facility] CREATININE Don 09-11-2022 Creatinine [Mass/Vol] 0.59 mg/dL Normal 0.58-0.96 [facility] Comment on above: Order Comment: Speci men Type: BLOOD SPECIMENOrdering Facility: [facility] Address: [address] [place] [address] Performed By: #### C RET1 ####[facility] [id number] [place] [address] ESTIMATED GLOMERULAR FILTRATION RATE 98 mL/min/1.73m??? Normal >=60 [facility] Comment on above: Order Comment: Speci men Type: BLOOD SPECIMENOrdering Facility: [facility] Address: [address] [place] [address] Result Comment: Zoila mated Glomerular Filtration Rate [...] actual GFR. Performed By: #### C RET1 ####[facility] [id number] [place] [address] CT ABD/PEL W IVCONon 022 CT ABD/PEL W IVCON * * *Final Report* * * DATE OF EXAM: Sep 11 2022 10:33AM [facility] 0530 - CT ABD/PEL W IVCON / [...] chest CT performed will be reported separately. Visitor Information Assistant (topogram) images: No additional findings. IMPRESSION: 1. [...] any questions regarding this interpretation, please call [phone]. If you are unable to reach us at the number above, please feel free to contact [facility] e[facility] at [phone]. [id number] Normal [facility] CT CHEST W IVCONon 2 CT CHEST W IVCON * * *Final Report* * * DATE OF EXAM: Sep 11 2022 10:33AM [facility] 0539 - CT CHEST W IVCON / [...] CT scan report for the abdomen findings. Visitor Information Assistant (topogram) images: No additional findings. IMPRESSION: 1. [...] any questions regarding this interpretation, please call [phone]. If you are unable to reach us at the number above, please feel free to contact [facility] eRadiology at [phone]. [id number] [facility] (PETSAN) MAGY CASTRO ([id number]) 1955 F Date Time Provider Department 08/13/22 LAVINIA GODFREY During your visit today, we recorded the following information about you: Lavinia Godfrey RN 08/13/2022 10:57 AM Signed Please sign pending Cre order for Magy Castro for upcoming CT with contrast on 09/11/22. Thank you. Lavinia Godfrey RN Allergies As of Date: 08/13/2022 (No Known Allergies) Date Reviewed: 09/19/2021 Reviewed by: Юлия Odom APRN.PASSPORT APPLICATION EXAMINER - Fully Assessed Reason for Visit: Orders [681] Primary Visit Diagnosis:Malignant neoplasm of body of uterus, unspecified site (HCC) [C54.9] Order(s):CREATININE BLD [SQCRET] Order #: [id number] FUTURE Prescriptions as of 08/15/2022 - aspirin, [...] Encounter Status:Closed by ЮЛИЯ ODOM on 08/15/22 [facility] A1C HEMOGLOBINon 07-21-2022 HbA1c (Bld) [Mass fraction] 8.2 % [employer] Other Glucose - FINGER STICKon Glucose [Mass/Vol] 243 mg/dL [employer] Other HbA1c (Bld) [Mass fraction]o n 07-21-2022 A1C HEMOGLOBIN [employer] Other A1C HEMOGLOBINon 04-09-2022 HbA1c (Bld) [Mass fraction] 7.1 % [employer] Other Glucose - FINGER STICKon Glucose [Mass/Vol] 253 mg/dL [employer] Other HbA1c (Bld) [Mass fraction]o n 04-09-2022 A1C HEMOGLOBIN [employer] Other A1C HEMOGLOBINon 12-18-2021 HbA1c (Bld) [Mass fraction] 7 % [employer] Other Glucose - FINGER STICKon Glucose [Mass/Vol] 200 mg/dL [employer] Other HbA1c (Bld) [Mass fraction]o n 12-18-2021 A1C HEMOGLOBIN [employer] Other A1C HEMOGLOBINon 09-10-2021 HbA1c (Bld) [Mass fraction] 7.2 % [employer] Other Glucose - FINGER STICKon Glucose [Mass/Vol] 247 mg/dL [employer] Other HbA1c (Bld) [Mass fraction]o n 09-10-2021 A1C HEMOGLOBIN [employer] Other Vital Signs Date Time Vital Sign Value Performing Clinician Facility 09-09-2023 09:45-0500 Body height 161.29 cm Tondra Mapus Other [employer] Other 09-09-2023 09:45-0500 Body mass index (BMI) [Ratio] 45.97 kg/m2 Tondra Mapus Other [employer] Other 09-09-2023 09:45-0500 Body weight 119.61 kg Tondra Mapus Other [employer] Other 09-09-2023 09:45-0500 Diastolic blood pressure 75 mm[Hg] Tondra Mapus Other [employer] Other 09-09-2023 09:45-0500 Respiratory rate 18 /min Tondra Tejasus Other [employer] Other 09-09-2023 09:45-0500 SaO2% (BldA) [Mass fraction] 97 % Tondra Mapus Other [facility] [employer] Other 09-09-2023 09:45-0500 Systolic blood pressure 116 mm[Hg] Tondra Mapus Other [facility] [employer] Other 06-29-2023 09:36-0400 Body height 160.02 cm DO Sherman Stephans Work Phone: [facility] 06-29-2023 09:36-0400 Body mass index (BMI) [Ratio] 46 kg/m2 DO Sherman Stephans Work Phone: [facility] 06-29-2023 09:36-0400 Body weight 117.93 kg DO Sherman Stephans Work Phone: [facility] 06-29-2023 09:30-0400 Body temperature 97.6 [degF] DO Sherman Stephans Work Phone: [facility] 06-29-2023 09:30-0400 Diastolic blood pressure 70 mm[Hg] DO Sherman Kuns Work Phone: [facility] 06-29-2023 09:30-0400 Heart rate 92 /min DO Sherman Kuns Work Phone: [facility] 06-29-2023 09:30-0400 Respiratory rate 20 /min DO Sherman Kuns Work Phone: [facility] 06-29-2023 09:30-0400 Systolic blood pressure 145 mm[Hg] DO Sherman Kuns Work Phone: [facility] 04-30-2023 09:07-0400 Body height 162.56 cm DO Sherman Kuns Work Phone: [facility] 04-30-2023 09:07-0400 Body mass index (BMI) [Ratio] 44.6 kg/m2 DO Sherman Kuns Work Phone: [facility] 04-30-2023 09:07-0400 Body weight 117.93 kg DO Sherman Kuns Work Phone: [facility] 04-30-2023 08:58-0400 Body temperature 97.7 [degF] DO Sherman Kuns Work Phone: [facility] 04-30-2023 08:58-0400 Diastolic blood pressure 89 mm[Hg] DO Sherman Kuns Work Phone: [facility] 04-30-2023 08:58-0400 Heart rate 88 /min DO Sherman Kuns Work Phone: [facility] 04-30-2023 08:58-0400 Respiratory rate 18 /min DO Sherman Kuns Work Phone: [facility] 04-30-2023 08:58-0400 Systolic blood pressure 113 mm[Hg] DO Sherman Kuns Work Phone: [facility] 03-30-2023 09:02-0400 Body temperature 97.8 [degF] DO Sherman Kuns Work Phone: [facility] 03-30-2023 09:02-0400 Diastolic blood pressure 79 mm[Hg] DO Sherman Kuns Work Phone: [facility] 03-30-2023 09:02-0400 Heart rate 97 /min DO Sherman Kuns Work Phone: [facility] 03-30-2023 09:02-0400 Respiratory rate 20 /min DO Sherman Kuns Work Phone: [facility] 03-30-2023 09:02-0400 Systolic blood pressure 138 mm[Hg] DO Sherman Larson Work Phone: [facility] 03-25-2023 14:58-0400 Body height 162.56 cm DO Sherman Larson Work Phone: [facility] 03-25-2023 14:58-0400 Body mass index (BMI) [Ratio] 44.6 kg/m2 DO Sherman Larson Work Phone: [facility] 03-25-2023 14:58-0400 Body weight 117.93 kg DO Sherman Larson Work Phone: [facility] 02-19-2023 15:15-0400 Diastolic blood pressure 58 mm[Hg] Lior Linton MD Work Phone: [facility] 02-19-2023 15:15-0400 Heart rate 85 /min Lior Linton MD Work Phone: [facility] 02-19-2023 15:15-0400 Respiratory rate 16 /min Lior Linton MD Work Phone: [facility] 02-19-2023 15:15-0400 SaO2% (BldA) [Mass fraction] 99 % Lior Linton MD Work Phone: [facility] 02-19-2023 15:15-0400 Systolic blood pressure 132 mm[Hg] Lior Linton MD Work Phone: [facility] 02-19-2023 14:44-0400 Body temperature 96.8 [degF] Lior Linton MD Work Phone: [facility] 02-10-2023 10:15-0400 Body height 161.29 cm Rosanne Dumont Other [employer] Other 02-10-2023 10:15-0400 Body mass index (BMI) [Ratio] 46.2 kg/m2 Rosanne Dumont Other [employer] Other 02-10-2023 10:15-0400 Body weight 120.2 kg Tondra Mapus Other [employer] Other 02-10-2023 10:15-0400 Diastolic blood pressure 77 mm[Hg] Tondra Mapus Other [employer] Other 02-10-2023 10:15-0400 Respiratory rate 18 /min Tondra Mapus Other [employer] Other 02-10-2023 10:15-0400 SaO2% (BldA) [Mass fraction] 98 % Tondra Mapus Other [employer] Other 02-10-2023 10:15-0400 Systolic blood pressure 138 mm[Hg] Tondra Mapus Other [employer] Other 02-02-2023 08:26-0400 Body height 161.3 cm [facility] 02-02-2023 08:26-0400 Body weight 117.94 kg [facility] 01-07-2023 09:51-0400 Body weight 120.2 kg Lior Linton MD Work Phone: [facility] 01-07-2023 09:51-0400 Diastolic blood pressure 86 mm[Hg] Lior Linton MD Work Phone: [facility] 01-07-2023 09:51-0400 Heart rate 91 /min Lior Linton MD Work Phone: [facility] 01-07-2023 09:51-0400 Systolic blood pressure 156 mm[Hg] Lior Linton MD Work Phone: [facility] 11-04-2022 10:15-0500 Body height 161.29 cm Tondra Mapus Other [employer] Other 11-04-2022 10:15-0500 Body mass index (BMI) [Ratio] 45.84 kg/m2 Tondra Mapus Other [employer] Other 11-04-2022 10:15-0500 Body weight 119.25 kg Tondra Mapus Other [employer] Other 11-04-2022 10:15-0500 Diastolic blood pressure 63 mm[Hg] Tondra Mapus Other [employer] Other 11-04-2022 10:15-0500 Respiratory rate 18 /min Tondra Mapus Other [employer] Other 11-04-2022 10:15-0500 SaO2% (BldA) [Mass fraction] 97 % Tondra Mapus Other [employer] Other 11-04-2022 10:15-0500 Systolic blood pressure 138 mm[Hg] Tondra Mapus Other [employer] Other 09-24-2022 09:45-0500 Body height 161.29 cm Sherman Larson Other [employer] Other 09-24-2022 09:45-0500 Body mass index (BMI) [Ratio] 45.57 kg/m2 Sherman Larson Other [employer] Other 09-24-2022 09:45-0500 Body weight 118.57 kg Sherman Larson Other [employer] Other 09-24-2022 09:45-0500 Diastolic blood pressure 62 mm[Hg] Sherman Larson Other [employer] Other 09-24-2022 09:45-0500 Respiratory rate 16 /min Sherman Rothmanfaby Other [employer] Other 09-24-2022 09:45-0500 SaO2% (BldA) [Mass fraction] 96 % Sherman Rothmanfaby Other [employer] Other 09-24-2022 09:45-0500 Systolic blood pressure 124 mm[Hg] Sherman Larson Other [employer] Other 09-17-2022 09:43-0500 Body temperature 97.59 [degF] Юлия Odom APRN.PASSPORT APPLICATION EXAMINER Work Phone: [facility] 09-17-2022 09:43-0500 Body weight 120.2 kg Юлия Odom CRIMINAL JUSTICE TEACHER.PASSPORT APPLICATION EXAMINER Work Phone: [facility] 09-17-2022 09:43-0500 Diastolic blood pressure 55 mm[Hg] Юлия Odom CRIMINAL JUSTICE TEACHER.PASSPORT APPLICATION EXAMINER Work Phone: [facility] 09-17-2022 09:43-0500 Heart rate 81 /min Юлия Hatfieldianofaby CRIMINAL JUSTICE TEACHER.PASSPORT APPLICATION EXAMINER Work Phone: [facility] 09-17-2022 09:43-0500 Respiratory rate 14 /min Юлия Odom CRIMINAL JUSTICE TEACHER.PASSPORT APPLICATION EXAMINER Work Phone: [facility] 09-17-2022 09:43-0500 Systolic blood pressure 143 mm[Hg] Юлия Malloygalianofaby CRIMINAL JUSTICE TEACHER.PASSPORT APPLICATION EXAMINER Work Phone: [facility] 07-21-2022 10:15-0400 Body height 161.29 cm Rosanne Dumont Other [employer] Other 07-21-2022 10:15-0400 Body mass index (BMI) [Ratio] 46.03 kg/m2 Tondra Mapus Other [employer] Other 07-21-2022 10:15-0400 Body weight 119.75 kg Tondra Mapus Other [employer] Other 07-21-2022 10:15-0400 Diastolic blood pressure 60 mm[Hg] Tondra Mapus Other [employer] Other 07-21-2022 10:15-0400 Respiratory rate 16 /min Tondra Mapus Other [employer] Other 07-21-2022 10:15-0400 SaO2% (BldA) [Mass fraction] 96 % Tondra Mapus Other [employer] Other 07-21-2022 10:15-0400 Systolic blood pressure 141 mm[Hg] Tondra Mapus Other [employer] Other 04-09-2022 10:15-0400 Body height 161.29 cm Tondra Mapus Other [employer] Other 04-09-2022 10:15-0400 Body mass index (BMI) [Ratio] 47.42 kg/m2 Tondra Mapus Other [employer] Other 04-09-2022 10:15-0400 Body weight 123.38 kg Tondra Mapus Other [employer] Other 04-09-2022 10:15-0400 Diastolic blood pressure 65 mm[Hg] Tondra Mapus Other [employer] Other 04-09-2022 10:15-0400 Respiratory rate 16 /min Tondra Mapus Other [employer] Other 04-09-2022 10:15-0400 SaO2% (BldA) [Mass fraction] 97 % Tondra Mapus Other [employer] Other 04-09-2022 10:15-0400 Systolic blood pressure 132 mm[Hg] Tondra Mapus Other [employer] Other 12-18-2021 10:45-0500 Body height 161.29 cm Tondra Mapus Other [employer] Other 12-18-2021 10:45-0500 Body mass index (BMI) [Ratio] 47.6 kg/m2 Tondra Mapus Other [employer] Other 12-18-2021 10:45-0500 Body weight 123.83 kg Tondra Mapus Other [employer] Other 12-18-2021 10:45-0500 Diastolic blood pressure 74 mm[Hg] Tondra Mapus Other [employer] Other 12-18-2021 10:45-0500 Respiratory rate 16 /min Tondra Mapus Other [employer] Other 12-18-2021 10:45-0500 SaO2% (BldA) [Mass fraction] 97 % Tondra Mapus Other [employer] Other 03-09-2022 10:45-0500 Systolic blood pressure 120 mm[Hg] Tondra Mapus Other [employer] Other 09-23-2021 09:30-0500 Body height 161.29 cm Sherman Rothmanfaby Other [employer] Other 09-23-2021 09:30-0500 Body mass index (BMI) [Ratio] 47.42 kg/m2 Sherman Larson Other [employer] Other 09-23-2021 09:30-0500 Body weight 123.38 kg Sherman Larson Other [employer] Other 09-23-2021 09:30-0500 Diastolic blood pressure 60 mm[Hg] Sherman Larson Other [employer] Other 09-23-2021 09:30-0500 Respiratory rate 16 /min Sherman Rothmanfaby Other [employer] Other 09-23-2021 09:30-0500 SaO2% (BldA) [Mass fraction] 98 % Shermanleonor Larson Other [employer] Other 09-23-2021 09:30-0500 Systolic blood pressure 126 mm[Hg] Sherman Larson Other [employer] Other 09-10-2021 11:45-0500 Body height 161.29 cm Tondra Mapus Other [employer] Other 09-10-2021 11:45-0500 Body mass index (BMI) [Ratio] 47.94 kg/m2 Tondra Mapus Other [employer] Other 09-10-2021 11:45-0500 Body weight 124.74 kg Tondra Mapus Other [employer] Other 09-10-2021 11:45-0500 Diastolic blood pressure 63 mm[Hg] Tondra Mapus Other [employer] Other 09-10-2021 11:45-0500 Respiratory rate 20 /min Tondra Mapus Other [employer] Other 09-10-2021 11:45-0500 SaO2% (BldA) [Mass fraction] 96 % Tondra Mapus Other [employer] Other 09-10-2021 11:45-0500 Systolic blood pressure 121 mm[Hg] Tondra Mapus Other [employer] Other Encounters Encounter Date Encounter Type Care Provider Facility Start: 09-15-2023 End: 09-15-2023 ambulatory [facility] Facility:[facility] Start: 09-15-2023 End: 09-15-2023 ambulatory DO Sherman Larson Work Phone: [facility] Work Phone: Start: 09-15-2023 End: 09-15-2023 Departed Referred DO Sherman Larson Work Phone: [facility] [place] Work Phone: Start: 09-09-2023 (DM) Diabetes Tondra Tim [facility] Start: 09-09-2023 Telephone encounter Marcelocamilo Lazaro [facility] Start: 09-09-2023 End: 09-09-2023 ambulatory Sherman Larson [employer] Other Start: 09-09-2023 Registered Recurring DO Sherman Kuns Work Phone: [facility] Work Phone: Start: 07-15-2023 End: 07-15-2023 ambulatory Referral Self Facility:[facility] Start: 07-15-2023 End: 07-15-2023 ambulatory DO Sherman Larson Work Phone: [facility] Work Phone: Start: 07-15-2023 End: 07-15-2023 Patient encounter procedure DO Sherman Larson Work Phone: [facility] Work Phone: Start: 06-29-2023 End: 06-30-2023 ambulatory Sherman Larson Facility:[facility] Start: 06-29-2023 End: 06-29-2023 ambulatory DO Sherman Larson Work Phone: [facility] Work Phone: Start: 06-29-2023 End: 06-29-2023 Discharged Recurring DO Sherman Larson Work Phone: [facility] [place] Work Phone: Start: 06-29-2023 Registered Recurring DO Sherman Larson Work Phone: [facility] [place] Work Phone: Start: 05-26-2023 Registered Recurring DO Sherman Larson Work Phone: [facility] Work Phone: Start: 04-30-2023 End: 04-30-2023 ambulatory Hien Poole Facility:[facility] Start: 04-30-2023 End: 04-30-2023 ambulatory DO Sherman Larson Work Phone: [facility] Work Phone: Start: 04-30-2023 End: 04-30-2023 Discharged Recurring DO Sherman Larson Work Phone: [facility] [place] Work Phone: Start: 04-05-2023 End: 04-05-2023 ambulatory Sherman Larson Other [employer] Other Start: 04-05-2023 Encounter by ij Larson [facility] Start: 04-02-2023 End: 04-02-2023 ambulatory Tondra Mapus Other [employer] Other Start: 04-02-2023 Telephone encounter Geocamilo Dumont [facility] Start: 03-31-2023 End: 03-31-2023 ambulatory Tondra K Mapus Facility:[facility] Start: 03-31-2023 End: 03-31-2023 ambulatory DO Sherman Larson Work Phone: [facility] Work Phone: Start: 03-31-2023 End: 03-31-2023 Patient encounter procedure DO Sherman Larson Work Phone: [facility] Work Phone: Start: 03-30-2023 Registered Recurring DO Sherman Larson Work Phone: [facility] [place] Work Phone: Start: 02-19-2023 ambulatory Ivory Rizo francisco j [facility] Work Phone: [facility] HB-3 Comment on above: antibiotic prescript ion Start: 02-19-2023 E-mail encounter fro m caregiver Ivory Stuart [facility] Work Phone: [facility] Start: 02-19-2023 End: 02-19-2023 Subsequent hospital visit by physician Lior Linton MD Work Phone: [facility] - ENDO Comment on above: Pancreatic cyst [K86 .2] Start: 02-10-2023 (DM) Diabetes Tondra Tim [facility] Start: 02-10-2023 End: 02-10-2023 ambulatory Rosanne Dumont Other [facility] Other Start: 02-10-2023 Registered Recurring DO Sherman Larson Work Phone: [facility] Work Phone: Start: 02-09-2023 ambulatory Lior Linton MD Work Phone: [facility] - ENDO Start: 02-04-2023 Telephone encounter Orville Rocha (Antique Collector) Issa john Pre Anesthesia Comment on above: Received Outside Med [facility] Records (Lab Results) Start: 02-02-2023 End: 02-02-2023 Admission to establishment Pacc Main [facility] Start: 02-02-2023 End: 02-02-2023 ambulatory SHERMAN LARSON Pre Anesthesia Comment on above: Pre-op evaluation (P rimary Dx); Type 2 diabetes mellitus without complication, unspecified whether skilled nursing insulin use (HCC); Mixed hyperlipidemia; Endometrial cancer (HCC); Morbid obesity (HCC) Start: 02-02-2023 End: 02-02-2023 Preprocedural examination done Pacc Virtual Pre Anesthesia Start: 01-22-2023 Telephone encounter Lior page MD Work Phone: Gastroenterology Comment on above: Imaging available fo r review Start: 01-07-2023 End: 01-07-2023 ambulatory LIOR LINTON Facility:[facility] Start: 01-07-2023 End: 01-07-2023 Patient encounter procedure Lior Linton MD Work Phone: Gastroenterology Comment on above: Pancreatic cyst (Qian lakhwinder Dx); Family history of pancreatic cancer; History of endometrial cancer Start: 11-19-2022 ambulatory LIOR OSCAR Facility:[facility] Start: 11-04-2022 (DM) Diabetes Tondra Tim [facility] Start: 11-04-2022 End: 11-04-2022 ambulatory Tondra Dumont Other [employer] Other Start: 11-02-2022 End: 11-02-2022 ambulatory Heidi Sanchez Other [employer] Other Start: 11-02-2022 Encounter by ji Sanchez [facility] Start: 10-30-2022 Telephone encounter Lior page MD Work Phone: Gastroenterology Comment on above: Orders Start: 10-14-2022 End: 10-14-2022 ambulatory Tondra Dumont Other [employer] Other Start: 10-14-2022 Telephone encounter Tondra Dumont [facility] Start: 09-24-2022 End: 09-24-2022 ambulatory Sherman Larson Other [employer] Other Start: 09-24-2022 Office outpatient visit 15 minutes Sherman Larson [facility] Start: 09-17-2022 End: 09-17-2022 ambulatory ЮЛИЯ ODOM Facility:[facility] Start: 09-17-2022 End: 09-17-2022 Follow-up encounter Юлия Odom APRN.PASSPORT APPLICATION EXAMINER Work Phone: Gynecology Comment on above: Encounter for follow -up surveillance of endometrial cancer (Primary Dx); Pancreatic cyst; Lung nodules Start: 09-17-2022 End: 09-17-2022 Patient encounter procedure Юлия Odom CRIMINAL JUSTICE TEACHER.PASSPORT APPLICATION EXAMINER [facility] Phone[facility] Start: 09-11-2022 End: 09-11-2022 ambulatory ЮЛИЯ ODOM Facility:[facility] Start: 08-13-2022 Telephone encounter Lavinia Winter adiology [facility] Comment on above: Orders Start: 07-21-2022 (DM) Diabetes Tondra Tim [facility] Start: 07-21-2022 End: 07-21-2022 ambulatory Tondra Mapus Other [employer] Other Start: 06-11-2022 End: 06-11-2022 Patient encounter procedure DO Sherman Larson Work Phone: [facility] Start: 04-09-2022 Registered Recurring DO Sherman Salvador Work Phone: [facility] Start: 04-09-2022 (DM) Diabetes Tondra Mapus [facility] Start: 04-09-2022 End: 04-09-2022 ambulatory Tondra Mapus Other [employer] Other Start: 03-25-2022 End: 03-25-2022 ambulatory Sherman Larson Other [employer] Other Start: 03-25-2022 Telephone encounter Sherman Larson [facility] Start: 03-12-2022 End: 03-12-2022 ambulatory Tondra Mapus Other [employer] Other Start: 03-12-2022 Telephone encounter Tondra Mapus [facility] Start: 01-29-2022 End: 01-29-2022 ambulatory Tondra Mapus Other [employer] Other Start: 01-29-2022 Telephone encounter Tondra Mapus [facility] Start: 12-18-2021 (DM) Diabetes Tondra Mapus [facility] Start: 12-18-2021 End: 12-18-2021 ambulatory Tondra Mapus Other [employer] Other Start: 10-18-2021 End: 10-18-2021 ambulatory Sherman Larson Other [employer] Other Start: 10-18-2021 Telephone encounter Sherman Larson [facility] Start: 09-23-2021 End: 09-23-2021 ambulatory Sherman Larson Other [employer] Other Start: 09-23-2021 Office outpatient visit 25 minutes Sherman Rothmanfaby [facility] Start: 09-10-2021 (DM) Diabetes Rosanne Dumont [facility] Start: 09-10-2021 End: 09-10-2021 ambulatory Rosanne Dumont Other [employer] Other Start: 11-04-2018 Preoperative state Rosanne Dawkins s Other [employer] Other Procedures Date Procedure Procedure Detail Performing [...] 09-15-2023 Superficial Wound Culture Superficial Wound Culture [facility] Start: 10-12-2022 ADVANCE DIRECTIVE DISCUSSION ADVANCE DIRECTIVE DISCUSSION [facility] Start: 10-12-2022 DEPRESSION ASSESSMENT DEPRESSION ASS ESSMENT [facility] Start: 09-11-2022 End: 11-11-2022 CREATININE BLD CREATININE BLD Lab Routine Malignant neoplasm of body of uterus, unspecified site (HCC) Expected: 09/11/2022, Expires: 11/11/2022 [facility] Work Phone: Comment on above: Expected: 09/11/2022 , Expires: 11/11/2022 Start: 06-12-2022 Influenza vaccination INFLUENZA (#1) [facility] Start: 10-12-2021 ADVANCE DIRECTIVE DISCUSSION ADVANCE DIRECTIVE DISCUSSION [facility] Start: 10-12-2021 DEPRESSION ASSESSMENT DEPRESSION ASS ESSMENT [facility] Start: 09-02-2021 COVID-19 VACCINE (4 - Booster for Pfizer series) COVID-19 VACCINE (4 - Booster for Pfizer series) [facility] Start: 2018 BONE DENSITY BONE DENSITY [facility] Start: 2003 SHINGRIX VACCINE (1 of 2) SHINGRIX VACCINE (1 of 2) [facility] Start: 05-04-2002 Urine microalbumin profile DTAP,TDAP,TD (1 - Tdap) [facility] Start: 1998 COLOGUARD (FIT-DNA) COLOGUARD (FIT-D NA) [facility] Start: 1998 Colonoscopy COLONOSCOPY [facility] Start: 1998 COLORECTAL CANCER SCREENING COLORECTAL CANCER SCREENING [facility] Start: [address] COLONOGRAPHY [facility] Start: 1998 FECAL OCCULT BLOOD FECAL OCCULT BLOO D [facility] Start: 1998 SIGMOIDOSCOPY SIGMOIDOSCOPY [facility] Start: 1993 Mammography MAMMOGRAM [facility] Start: 1971 ANNUAL PCP TEAM COMMUNICATION SPEC MISHA DISEASE VISIT ANNUAL PCP TEAM CHRONIC DISEASE VISIT [facility] Start: 1971 Hepatitis B surface antibody level LDL CHOLESTEROL [facility] Start: 1971 HEPATITIS C SCREENING HEPATITIS C SC REENING [facility] Start: 1963 3 comp foot exam completed DIABETIC FOOT EXAM [facility] Start: 1963 Hepatitis B screening URINE ALBUMIN:CREATININE RATIO [facility] Start: 1963 Hepatitis C antibody , confirmatory test DILATED RETINAL EXAM [facility] Start: 1959 PNEUMOCOCCAL: 65+ (1 - PCV) PNEUMOCOCCAL: 65+ (1 - PCV) [facility] Start: 1958 Hemoglobin A1c/Hemoglobin.total in Blood HBA1C [facility] Bacteria identified in Unspecified specimen by Aerobe culture [facility] CYTOLOGY NON-FIRE EXTINGUISHER MECHANIC CYTOLOGY NON-GY N Lab Routine Pancreatic cyst Release Upon Ordering for 1 Occurrences starting 02/19/2023 [facility] Work Phone: Comment on above: Release Upon Orderin g for 1 Occurrences starting 02/19/2023 End: 01-08-2024 EGD - THERAPEUTIC, EUS, OR TUBE INTERVENTIONS EGD - THERAPEUTIC, EUS, OR TUBE INTERVENTIONS Endoscopy Routine Pancreatic cyst 1 Occurrences starting 01/07/2023 until 01/08/2024 [facility] Work Phone: Comment on above: 1 Occurrences starti ng 01/07/2023 until 01/08/2024 [facility] Immunizations Immunization Date Immunization Notes Care Provider Fa [facility] 02-18-2022 COVID-19 original vaccine, age 12+ yr, monovalent ([employer] JARAM[employer]O [employer]) Ivory Stuart [facility] Work Phone: [facility] 02-18-2022 COVID-19 Vaccine Pfizer - Documentation Purposes Only Sherman Larson Other [employer] Other 07-08-2021 COVID-19 Pfizer Sherman Kuns Other [facility] 07-08-2021 influenza, seasonal, injectable Sherman Rothmans Other [employer] Other 01-03-2021 COVID-19 Pfizer Sherman Kuns Other [facility] 12-13-2020 COVID-19 Pfizer Sherman Kuns Other [facility] 09-21-2020 zoster vaccine recombinant Sherman Kuns Other [employer] Other 06-26-2020 zoster vaccine recombinant Sherman Kuns Other [employer] Other 06-20-2019 influenza, seasonal, injectable Rosanne Dumont Other [employer] Other 07-05-2018 influenza, injectabl e, quadrivalent, preservative free Lavinia Godfrey RN [facility] 06-01-2017 influenza, injectabl e, quadrivalent, preservative free Lavinia Godfrey RN [facility] 08-10-2009 novel [id number], preservative-free, injectable Lavinia Godfrey RN [facility] 05-03-2002 TD(adult) unspecifie d formulation Lavinia Godfrey RN [facility] Payers Date Payer Category Payer Medicare MEDICARE MEDICAR E A AND B [id number] 2018-Present [phone] [address] [address] [place] [address] Medicare [id number] 2018 Unknown [id number] 2018 Unknown [id number] 2018 Medicare [id number] 2018 Self-pay [id number] 2018 Unknown [id number] Unknown [id number] Unknown [id number] Unknown [id number] Unknown [id number] Unknown [id number] Unknown [id number] Unknown [id number] Social History Date Type Detail Facility Unknown if ever smoked [employer] Other Sex Assigned At Sex Assigned At Bir th [employer] Other Start: 07-30-2021 End: 06-29-2023 Tobacco smoking status NHIS Never smoked tobacco (finding) [facility] Start: 1955 Sex Assigned At Female F [facility] Start: 02-12-2018 End: 09-17-2022 Tobacco use and exposure Smokeless tobacco non-user [facility] Start: 04-03-2021 End: 02-02-2023 Alcohol intake Current non-drinker of alcohol (finding) [facility] Start: 09-01-2022 End: 09-11-2022 Exposure to SARS-CoV-2 (event) Not sure [facility] Medical Equipment Procedure Code Equipment Code [...] hip, total, anterior approach STEM B/3 09[facility]24 [facility] FDA Start: 11-16-2018 Start: 09-14-2013 Clinical Notes 09-10-2021 to 09-09-2023 Note Date & Type Note Facility 09-09-2023 Evaluation note Encounter Date Diagnosis Assessment Notes Aug, Type 2 diabetes mellitus (ICD-10 - E11.9) Managing type 2 diabetes material was published 1. Uncontrolled, Type 2 diabetes A1C 8.3% 2. Blood glucose levels above target. According to [employer] 2 cgm download 08/27/2023-08/13 Avg glucose 171. [...] High blood pressure material was published Aug, joint 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 controller current use of insulin (ICD-10 - Z79.4) Aug, B12 deficiency (ICD-10 - E53.8) Good food sources of vitamin B12 material was published 03/2023 Vit b12 221 Aug, BMI 45.0-49.9, adult (ICD-10 - Z68.42) Setting weight-loss goals material was published 6 pound weight loss from last visit, continue with weight loss efforts Aug, Skin abnormalities (ICD-10 - L98.9) Referral to dermatology [facility] Other 11-29-2023 Evaluation note* Encounter Date Diagnosis Assessment Notes Treatment Notes Treatment Clinical Notes Aug, Skin abnormalities (ICD-10 - L98.9) [facility] Other 09-18-2023 Progress note Author Hien Poole [facility] June 29, 2023 9:41am Note Date/Time June 29, 2023 9:36am [facility] [address] [place] [address] Wound Center Provider Note Signed Patient: Magy Castro MR#: [id number] : 1955 Acct:[id number] Age/Sex: 67 / F Copies to: DO Hien Taylor, CRIMINAL JUSTICE TEACHER~ HPI Date of Visit Date of Visit: Date of Service: 06/29/2023 Time of Service: 09:35 Narrative HPI: 06/29/23 Debbie is a 67 year old female presenting to [facility] wound care for a follow up visit for eval and treatment of RLE ulcer that appear d/t venous and lymphedema etiologies. She has been a patient here in the past. Urgo k2 wrap will be used along with topical steroid and she will present here for dressings.We spoke about vascular and she did has been having her venous procedures in [place]. Weight loss and elevation and compression and [...] start?: Early May 2023 Mode of Arrival/ Leather Heel Breaster: Personal vehicle Lives with:: Spouse Appetite Description: Within Normal Limits Who helps w/ dressing change?: Wound Care Dept Why Do You Need Help?: Can't Reach Ulcer Smoking Status: Never smoker [facility] Medical History (Updated 06/29/23 @ 09:36 by [...] By: <Electronically signed by WALTER Poole> 06/29/23940 [facility] Work Phone: 1(389) 946-701109-11-2023 Progress note Author Hien Poole [facility] June 22, 2023 1:48pm Note Date/Time June 22, 2023 1:48pm [facility] [address] [place] [address] Wound Center Provider Note Signed Patient: Magy Castro MR#: [id number] : 1955 Acct:[id number] Age/Sex: 67 / F Copies to: Sherman Larson,DO Hien Poole APRN~ HPI Date of Visit Date of Visit: Date of Service: 06/22/2023 Time of Service: 13:44 Subjective Pain Right Lower Leg: Pain Intensity: 0 Wound/Ulcer History When did wound start?: Early May 2023 Mode of Arrival/ Leather Heel Breaster: Personal vehicle Lives with:: Spouse Appetite Description: Within Normal Limits Who helps w/ dressing change?: Wound Care Dept Why Do You Need Help?: Can't Reach Ulcer Smoking Status: Never smoker [facility] Medical History (Updated 06/22/23 @ 13:46 by [...] Appearance: Beefy Red, Epithelial Tissue or Bridge, Schertz and Yellow Surrounding Tissue Appearance: Bright Red [...] <Electronically signed by WALTER Poole> 06/22/23 1348 [facility] Work Phone: 1(802) 450-613607-10-2023 Progress note Author Hien Poloe [facility] April 20, 2023 9:12am Note Date/Time April 20, 2023 9:12 am [facility] [address] [place] [address] Wound Center Provider Note Signed Patient: Magy Castro MR#: [id number] : 1955 Acct:[id number] Age/Sex: 67 / F Copies to: Sherman Larson,DO Hien Poole APRN~ HPI Date of Visit Date of Visit: Date of Service: 04/20/2023 Time of Service: 09:10 Narrative HPI: 03/25/23 Debbie is a 67 year old female presenting to [facility] wound care for an initial visit [...] interested in seeing the vascular group in [place] but she wants to wait at this [...] topically to the right leg, will do edgecomb vein referral today, continues to take the horse chestnut and probiotics Subjective Pain Left Lower Leg: Pain Intensity: 0 Right Lower Leg: Pain Intensity: 0 Wound/Ulcer History When did wound start?: July 2022 Mode of Arrival/ Leather Heel Breaster: Personal vehicle Lives with:: Spouse Appetite Description: Within Normal Limits Who helps w/ dressing change?: Wound Care Dept Why Do You Need Help?: Can't Reach Ulcer and Limited mobility Smoking Status: Never smoker [facility] Medical History (Updated 04/20/23 @ 09:10 by [...] (and venous) Thickness: Skin Breakdown Bed Appearance: Schertz Percent of Wound Bed Granulated/Red: 100 Percent of Devitalized: 0 Length (cm): 35.0 Width (cm): 40.0 Depth (cm): 0.1 CM Sq: 1400.000 Surrounding Tissue Appearance: Peeling and Dryness Surrounding Tissue Temp: Warm Drainage Amount: None Drainage Description: Serosanguineous Drainage Odor: No Odor Left Lower Leg: Type: Lymphedema (and venous) Thickness: Skin Breakdown Bed Appearance: [place] Percent of Wound Bed Granulated/Red: 100 Percent [...] With Patient (min): 13 Dictated By: Hien Poole APRN DD/ 9 Signed By: <Electronically signed by WALTER Poole> 04/20/23911 [facility] Work Phone: 1(758) 621-473806-29-2023 Progress note Author Hien Poole [facility] April 09, 2023 10:05am Note Date/Time April 09, 2023 10:0 5am [facility] [address] [place] [address] Wound Center Provider Note Signed Patient: Magy Castro MR#: [id number] : 1955 Acct:[id number] Age/Sex: 67 / F Copies to: Sherman Larson,DO Hien Poole APRN~ HPI Date of Visit Date of Visit: Date of Service: 04/09/2023 Time of Service: 10:00 Narrative HPI: 03/25/23 Debbie is a 67 year old female presenting to [facility] wound care for an initial visit [...] interested in seeing the vascular group in [place] but she wants to wait at this [...] wound start?: July 2022 Mode of Arrival/ Leather Heel Breaster: Personal vehicle Lives with:: Spouse Appetite Description: Within Normal Limits Who helps w/ dressing change?: Wound Care Dept Why Do You Need Help?: Can't Reach Ulcer and Limited mobility Smoking Status: Never smoker [facility] Medical History (Updated 04/09/23 @ 10:04 by Hien Copsey, CRIMINAL JUSTICE TEACHER) Cellulitis Diabetes mellitus, type 2 Hyperlipidemia Peripheral [...] (and venous) Thickness: Skin Breakdown Bed Appearance: Schertz Percent of Wound Bed Granulated/Red: 100 Percent of Devitalized: 0 Length (cm): 35.0 Width (cm): 40.0 Depth (cm): 0.1 CM Sq: 1400.000 Surrounding Tissue Appearance: Dryness Surrounding Tissue Temp: Warm Drainage Amount: Small Drainage Description: Serosanguineous Drainage Odor: No Odor Left Lower Leg: Type: Lymphedema (and venous) Thickness: Skin Breakdown Bed Appearance: Beefy Red, Schertz and Yellow Percent of Wound Bed Granulated/Red: [...] DD/ 1000 Signed By: <Electronically signed by WALTER Poole> 04/09/23 1005 [facility] Work Phone: 1(475) 688-332806-22-2023 Progress note Author Hien Poole [facility] April 02, 2023 9:18am Note Date/Time April 02, 2023 9:19 am [facility] [address] [place] [address] Wound Center Provider Note Signed Patient: Magy Castro#: [id number] : 1955 Acct:[id number] Age/Sex: 67 / F Copies to: Sherman Larson,DO Hien Poole APRN~ HPI Date of Visit Date of Visit: Date of Service: 04/02/2023 Time of Service: 09:16 Narrative HPI: 03/25/23 Debbie is a 67 year old female presenting to [facility] wound care for an initial visit [...] interested in seeing the vascular group in [place] but she wants to wait at this [...] wound start?: July 2022 Mode of Arrival/ Leather Heel Breaster: Personal vehicle Lives with:: Spouse Appetite Description: Within Normal Limits Who helps w/ dressing change?: Wound Care Dept Why Do You Need Help?: Can't Reach Ulcer and Limited mobility Smoking Status: Never smoker [facility] Medical History (Updated 04/02/23 @ 09:18 by [...] Appearance: Beefy Red, Epithelial Tissue or Bridge, Schertz and Yellow Percent of Wound Bed Granulated/Red: 90 Percent of Devitalized: 10 Length (cm): 35.0 Width (cm): 40.0 Depth (cm): 0.1 CM Sq: 1400.000 Surrounding Tissue Appearance: Hyperpigmented Surrounding Tissue Temp: Warm Drainage Amount: Moderate Drainage Description: Serosanguineous Drainage Odor: No Odor Left Lower Leg: Type: Lymphedema (and venous) Thickness: Skin Breakdown Bed Appearance: Beefy Red, Epithelial Tissue or Bridge, Schertz and Yellow Percent of Wound Bed Granulated/Red: [...] By: <Electronically signed by WALTER Poole> 04/02/23917 [facility] Work Phone: 1(848) 292-315706-14-2023 Progress note Author Hien Poole [facility] March 25, 2023 3:02pm Note Date/Time March 25, 2023 2:58 pm [facility] [address] [place] [address] Wound Center Provider Note Signed Patient: Magy Castro MR#: [id number] : 1955 Acct:[id number] Age/Sex: 67 / F Copies to: Sherman Larson,DO Hien Poole APRN~ HPI Date of Visit Date of Visit: Date of Service: 03/25/2023 Time of Service: 14:52 Narrative HPI: 03/25/23 Debbie is a 67 year old female presenting to [facility] wound care for an initial visit [...] interested in seeing the vascular group in [place] but she wants to wait at this [...] wound start?: July 2022 Mode of Arrival/ Leather Heel Breaster: Personal vehicle Lives with:: Spouse Appetite Description: Within Normal Limits Who helps w/ dressing change?: Wound Care Dept Why Do You Need Help?: Can't Reach Ulcer and Limited mobility Smoking Status: Never smoker [facility] Medical History (Updated 03/25/23 @ 14:54 by [...] Appearance: Beefy Red, Epithelial Tissue or Bridge, Schertz and Yellow Percent of Wound Bed Granulated/Red: 90 Percent of Devitalized: 10 Length (cm): 35.0 Width (cm): 40.0 Depth (cm): 0.1 CM Sq: 1400.000 Surrounding Tissue Appearance: Hyperpigmented Surrounding Tissue Temp: Warm Drainage Amount: Moderate Drainage Description: Serosanguineous Drainage Odor: No Odor Left Lower Leg: Type: Lymphedema (and venous) Thickness: Skin Breakdown Bed Appearance: Beefy Red, Epithelial Tissue or Bridge, Schertz and Yellow Percent of Wound Bed Granulated/Red: [...] <Electronically signed by WALTER Poole> 03/25/23 1502 [facility] Work Phone: [phone]) 679-931405-11-2023 Nurse Note* Lakhwinder Payan RN - 02/19/2023 [...] None REFERRAL (RECOMMENDATION): None documented in this encounterCinc[facility] History and physical note * Lior [...] 2:04 PM Source Note - Christophe Shaffer APRN.PASSPORT APPLICATION EXAMINER - 02/02/2023 8:00 AM EDT Images from the original note were not included. PREANESTHESIA CONSULT CLINIC TELEHEALTH VISIT Patient has been identified by name and date of : Yes This is a virtual visit using [employer] video visit. It require patient-provider interaction for [...] fevers. Neuro: No history of TIA's, stroke, PSYCHIATRIC ATTENDANT tumor, impaired sensorium, hemiplegia, paraplegia or quadraplegia. No neurological symptoms or problems. Respiratory: No history of current cough or dyspnea, or pneumonia in the past 6 weeks. No history of respiratory/pulmonary symptoms or problems. 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 I spent more than 21-40 minutes [id number] with the patient and over half the time was devoted tocounseling and/or coordination of care. This is a virtual visit. It required patient-provider interaction for the medical decision making as documented above. SIGNATURE: Christophe Shaffer APRN.CNP PATIENT NAME: Magy Castro DATE: February 02, 2023 TIME: 8:45 AM PAGER/CONTACT #: documented in this encounterCincinnati [facility]05-02-2023 Evaluation note* Encounter Date Diagnosis Assessment Notes Treatment Notes Treatment Clinical Notes February, Type 2 diabetes mellitus (ICD-10 - E11.9) Managing type 2 diabetes material was published 1. Uncontrolled, Type 2 diabetes A1C 7.3% 2. Blood glucose levels improved. According to [employer] 2 cgm download 01/28/2023-02/10/2023 Avg glucose 160. [...] hyperglycemia, or diabetes medication issues. 6. Prescriptions: Cuil MAIL ORDER/CARLOS PIZANO: None at this time. [...] High blood pressure material was published February, joint 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 controller current use of insulin (ICD-10 - Z79.4) February, B12 deficiency (ICD-10 - E53.8) Good food sources of vitamin B12 material was published 03/2022 Vit b12 >1400 February, BMI 45.0-49.9, adult (ICD-10 - Z68.42) Setting weight-loss goals material was published [employer] Other [id number] Miscellaneous Notes* Telephone Encounter - Orville Zamarripa LPN - 02/04/2023 11:44 AM EDTSummary: External Lab Results Scanned into patients chart documented in this encounterCincinnati [facility]04-25-2023 Miscellaneous Notes* Telephone Encounter - Heidi Parson RN - 02/03/2023 1:19 PM EDT Attempted to call pt, no answer. Left detailed voice msg regarding msg below. Instructed to call back with any questions. Heidi Parson RN * Telephone Encounter - Lior Linton MD - 02/03/2023 7:22 AM EDT MRCP images were reviewed. The images were downloaded to [facility] and the MRI was done at [facility]. Agree with the findings of the report. [...] pt. She will obtain MRCP disc from [facility] and send to our office. Heidi Parson RN ----- Message ----- From: Lior Linton MD Sent: 01/12/2023 5:41 PM EDT To: MARCEL Love: Please let me know when the MRCP disc is loaded into [employer] for my review. documented in this encounterCincinnati [facility]04-24-2023 Instructions* Patient Instructions* Christophe Shaffer APRN.PASSPORT APPLICATION EXAMINER - 02/02/2023 8:36 AM EDT PATIENT PREOPERATIVE INSTRUCTIONS Lior Linton MD has scheduled you for your procedure at this surgery center: [facility]: [phone] --[address] [address]. Please check in on the1st floor at [...] Procedures: - YOU MUST HAVE A RESPONSIBLE COST ESTIMATING MANAGER TAKE YOU HOME. A FARO DEALER OR BUSINESS SYSTEMS ARCHITECT CANNOT BE MADE A RESPONSIBLE COST ESTIMATING MANAGER. - We recommend that a responsible person [...] Advance Directive, please fax a copy to [phone] or email to for it to be [...] day. Christophe Shaffer APRN.CNP documented in this encounterCincinnati [facility]04-24-2023 History and physical note * Christophe Shaffer APRN.CNP - 02/02/2023 8:00 AM EDT Images from the original note were not included. PREANESTHESIA CONSULT CLINIC TELEHEALTH VISIT Patient has been identified by name and date of : Yes This is a virtual visit using [employer] video visit. It require patient-provider interaction for [...] fevers. Neuro: No history of TIA's, stroke, PSYCHIATRIC ATTENDANT tumor, impaired sensorium, hemiplegia, paraplegia or quadraplegia. No neurological symptoms or problems. Respiratory: No history of current cough or dyspnea, or pneumonia in the past 6 weeks. No history of respiratory/pulmonary symptoms or problems. 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 I spent more than 21-40 minutes [id number] with the patient and over half the time was devoted tocounseling and/or coordination of care. This is a virtual visit. It required patient-provider interaction for the medical decision making as documented above. SIGNATURE: Christophe Shaffer APRN.VINCE PATIENT NAME: Magy Castro DATE: February 02, 2023 TIME: 8:45 AM PAGER/CONTACT #: documented in this encounterCincinnati [facility]03-29-2023 History and physical note * Lior [...] alcohol. 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. 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 [...] (primary diagnosis) The MRCP was done at [facility]. I will review the images after they are downloaded to [facility]. We will schedule the patient for EUS with possible FNA especially with the strong family history ofpancreatic cancer. - EGD - THERAPEUTIC, EUS, OR TUBE INTERVENTIONS 2. Family history of pancreatic cancer - ICD9: V16.0, ICD10: Z80.0 Brother at age 51 from auto radio mechanic cancer. He was not smoker or alcoholic. 3. History of endometrial cancer - ICD9: V10.42, ICD10: Z85.42 History of endometrial cancer stage II diagnosed 2016 and treated with surgery followed by chemo and radiation. Lior Linton MD, FACP documented in this encounterCincinnati [facility]01-24-2023 Evaluation note* Encounter Date Diagnosis Assessment Notes Treatment Notes Treatment Clinical Notes Oct, Type 2 diabetes mellitus (ICD-10 - E11.9) Managing type 2 diabetes material was published 1. Uncontrolled, Type 2 diabetes A1C 7.9% 2. Blood glucose levels improved. According to [employer] 2 cgm download 10/22/2022- Avg glucose 173. [...] High blood pressure material was published Oct, group home current use of insulin (ICD-10 - Z79.4) Oct, B12 deficiency (ICD-10 - E53.8) Good food sources of vitamin B12 material was published 03/2022 Vit b12 >1400 Oct, BMI 45.0-49.9, adult (ICD-10 - Z68.42) Setting weight-loss goals material was published 2 pound weight loss from last visit, continue with weight loss efforts [employer] Other 01-19-2023 Miscellaneous Notes* Telephone Encounter - [...] AM EST Pt saw Dr. Rowland, at [facility] and was given Dr. Linton's name to schedule a ERCP?Dr. Rowland does not do ERCPs Pt stated that Dr. Rowland has sent over pt's medical records?! Pt can be reached at Thanks documented in this encounterCincinnati [facility]12-14-2022 Evaluation note* Encounter Date Diagnosis Assessment [...] a (ICD-10 - C54.1) Pt reports the TECHNOLOGY TRAINER at the cancer center ordered a CT [...] blood work was ordered to monitor this. [employer] Other 12-07-2022 NoteHNO ID: [id number] Author: Юлия Odom APRN.PASSPORT APPLICATION EXAMINER Service: ? Author Type: Nurse Practitioner Type: [...] present, cervix not involved HNPCC screening negative ER/CT: negative 2. 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 Юлия Oodm APRN.VINCE Medical Decision Making: Problems: Low: Stable chronic illness Data: Unique test result(s) reviewed: 1 Risk: Low: Low risk from testing/treatment Medical Decision Making Level: 3 - [facility]12-07-2022 History of Present illness Narrative* Юлия Odom APRN.PASSPORT APPLICATION EXAMINER - 09/17/2022 9:40 AM EST DATE: 09/17/2022 [...] present, cervix not involved HNPCC screening negative ER/CT: negative 2. 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 Юлия Odom APRN.CNP Medical Decision Making: Problems: Low: Stable chronic illness Data: Unique test result(s) reviewed: 1 Risk: Low: Low risk from testing/treatment Medical Decision Making Level: 3 - Low documented in this encounterCincinnati [facility]12-01-2022 NoteHNO ID: [id number] Author: RT Eugenia(R) Service: ? Author Type: [...] BY: RT Eugenia(R) September 11, 2022 10:00 [facility]12-01-2022 NoteHNO ID: [id number] Author: Lavinia Godfrey RN Service: ? Author [...] Final Comment: Account Credited DUPLICATE ORDER MW [id number] 09/13/2021 0.70 0.58 - 0.96 mg/dL [...] Final Comment: Account Credited DUPLICATE ORDER MW [id number] P.O.C.T. RESULTS: POC done: Yes, See Lab Tab September 11, 2022 TREATMENT: No Hydration needed. IV SITE: Ambulatory: A peripheral IV was started in the Left antecubital site with a Angio cath: 20 gauge. IV SITE APPEARANCE: Clean,Dry and Intact SIGNATURE: Lavinia Godfrey RN PATIENT NAME: Magy Castro DATE: September 11, 2022 TIME: 9:59 [facility]11-02-2022 Miscellaneous Notes* Telephone Encounter - Lavinia Godfrey RN - 08/13/2022 10:56 AM EDT Please sign pending Cre order for Magy Castro for upcoming CT with contrast on 09/11/22. Thank you. Lavinia Godfrey RN documented in this encounterCincinnati [facility]10-10-2022 Evaluation note* Encounter Date Diagnosis Assessment Notes Treatment Notes Treatment Clinical Notes Jul, Type 2 diabetes mellitus (ICD-10 - E11.9) Managing type 2 diabetes material was published 1. Uncontrolled, Type 2 diabetes A1C 8.2% 2. Blood glucose levels above target. According to [employer] 2 cgm download 07/08/2022-07/21/20 Avg glucose 201. [...] High blood pressure material was published Jul, group home current use of insulin (ICD-10 - Z79.4) Jul, B12 deficiency (ICD-10 - E53.8) Good food sources of vitamin B12 material was published 03/2022 Vit b12 >1400 Jul, BMI 45.0-49.9, adult (ICD-10 - Z68.42) Setting weight-loss goals material was published [employer] Other 06-29-2022 Evaluation note* Encounter Date Diagnosis Assessment Notes Treatment Notes Treatment Clinical Notes Mar, Type 2 diabetes mellitus (ICD-10 - E11.9) Managing type 2 diabetes material was published 1. Uncontrolled, Type 2 diabetes A1C 7.1% 2. Blood glucose levels above target. According to [employer] 2 cgm download 03/27/2022- 2 Avg glucose [...] High blood pressure material was published Mar, group home current use of insulin (ICD-10 - Z79.4) Mar, B12 deficiency (ICD-10 - E53.8) Good food sources of vitamin B12 material was published 03/2022 Vit b12 >1400 Mar, BMI 45.0-49.9, adult (ICD-10 - Z68.42) Making healthy choices at restaurants material was published [employer] Other 06-14-2022 Evaluation note* Encounter Date Diagnosis Assessment Notes Treatment Notes Treatment Clinical Notes Mar, Sinus congestion (ICD-10 - R09.81) [employer] Other 04-20-2022 Evaluation note* Encounter Date Diagnosis Assessment Notes Treatment Notes Treatment Clinical Notes Jan, Type 2 diabetes mellitus (ICD-10 - E11.9) [employer] Other 03-09-2022 Evaluation note* Encounter Date Diagnosis Assessment Notes Treatment Notes Treatment Clinical Notes Dec, Type 2 diabetes mellitus (ICD-10 - E11.9) Managing type 2 diabetes material was published 1. Controlled, Type 2 diabetes A1C 7% 2. Blood glucose levels improved. According to [employer] 2 cgm download 12/05/2021-12/18/2021 Avg glucose 157. [...] pattern. Reviewed with pt option of downloading [employer]iera to help with carb counting. Pt [...] u100 x1 pen given. Sent fiasp to [employer]. 7. Reviewed with pt if right great [...] High blood pressure material was published Dec, group home current use of insulin (ICD-10 - Z79.4) Dec, B12 deficiency (ICD-10 - E53.8) Good food sources of vitamin B12 material was published 04/2021 Vit b12 211 on supplement Dec, BMI 45.0-49.9, adult (ICD-10 - Z68.42) Making healthy choices at restaurants material was published Dec, Hypoglycemia associated with type 2 diabetes mellitus (ICD-10 - E11.649) Low blood glucose and diabetes material was published [employer] Other 01-07-2022 Evaluation note* Encounter Date Diagnosis Assessment Notes Treatment Notes Treatment Clinical Notes Oct, Cough (ICD-10 - R05.9) [employer] Other 12-13-2021 Evaluation note* Encounter Date Diagnosis [...] Sep, Vitamin D deficiency (ICD-10 - E55.9) [employer] Other 11-30-2021 Evaluation note* Encounter Date Diagnosis [...] medication issues. 6. Prescriptions: Victoza sent to [facility]. Aug, Dietary counseling and surveillance (ICD-10 - Z71.3) Eat well, exercise well, be well: dietary and fitness guidelines material was published Aug, Hyperlipidemia (ICD-10 - E78.5) Managing your cholesterol material was published 04/2021 ldl 75, trig. 164 on statin. Aug, HTN (hypertension) (ICD-10 - I10) High blood pressure material was published Aug, group home current use of insulin (ICD-10 - Z79.4) Aug, B12 deficiency (ICD-10 - E53.8) Good food sources of vitamin B12 material was published 04/2021 Vit b12 211 on supplement Aug, BMI 45.0-49.9, adult (ICD-10 - Z68.42) Making healthy choices at restaurants material was published Aug, Hypoglycemia associated with type 2 diabetes mellitus (ICD-10 - E11.649) Low blood glucose and diabetes material was published [employer] Other Evaluation noteNo InformationNort [employer] Other Evaluation noteNo assessment information available [facility] Work Phone: Evaluation note* Diagnosis Malignant neoplasm of body of uterus, unspecified site (HCC)- Primary documented in this encounter [facility]* Diagnosis Encounter for follow-up surveillance of endometrial cancer- Primary Unspecified follow-up examination Pancreatic cyst Cyst and pseudocyst of pancreas Lung nodules Other nonspecific abnormal finding of lung field documented in this encounter [facility]* Diagnosis Pancreatic cyst- Primary Cyst and pseudocyst of pancreas Family history of pancreatic cancer Family history of malignant neoplasm of gastrointestinal tract History of endometrial cancer Personal history of malignant neoplasm of other parts of uterus documented in this encounter [facility]* Diagnosis Pre-op evaluation- Primary Preoperative examination, unspecified Type 2 diabetes mellitus without complication, unspecified whether 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 termite insulin use (HCC) Mixed hyperlipidemia Endometrial cancer (HCC) Malignant neoplasm of corpus uteri, except isthmus Morbid obesity (HCC) Morbid obesity documented [facility] this encounter [facility]* Diagnosis Pancreatic cyst Cyst and pseudocyst of pancreas documented in this encounter [facility]* Diagnosis Onset Date Resolution Status Diabetes chronic Edema chronic 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 Inflammation chronic Lymphedema of both lower extremities chronic Obesity chronic Venous stasis of both lower extremities chronic Venous stasis ulcer of left lower extremity chronic Venous stasis ulcer of right lower extremity chronic [facility] Work Phone: Evaluation note* Diagnosis Onset Date Resolution Status Diabetes chronic Edema chronic 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 Inflammation chronic Lymphedema of both lower extremities chronic Obesity chronic Venous stasis of both lower extremities chronic Candidiasis resolved Cellulitis resolved Venous stasis ulcer of left lower extremity resolved Venous stasis ulcer of right lower extremity resolved [facility] Work Phone: Evaluation note* Diagnosis Onset Date [...] stasis ulcer of right lower extremity resolved [facility] Work Phone: Evaluation note* Diagnosis Onset Date Resolution Status Diabetes chronic Edema chronic 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 Inflammation chronic Lymphedema of both lower extremities chronic Obesity chronic Venous stasis of both lower extremities chronic Candidiasis resolved Venous stasis ulcer of right lower extremity resolved [facility] Work Phone: history general Narrative - Reported* [...] See Above Hospitalization History Covid 19 10/16/20- [employer] Other history general Narrative - Reported* Type [...] See Above Hospitalization History Covid 19 10/16/20- [employer] Other history general Narrative - Reported* Type [...] See Above Hospitalization History Covid 19 10/16/20- [facility] [employer] Other History general Narrative - ReportedNortAllegheny [facility] [employer] Other Progress note Author Hien Poole [facility] April 30, 2023 9:07am Note Date/Time April 30, 2023 9:07 am [facility] [address] [place] [address] Wound Center Provider Note Signed Patient: Magy Castro MR#: [id number] : 1955 Acct:[id number] Age/Sex: 67 / F Copies to: Sherman Larson,DO Hien Poole, WALTER~ HPI Date of Visit Date of Visit: Date of Service: 04/30/2023 Time of Service: 09:05 Narrative HPI: 03/25/23 Debbie is a 67 year old female presenting to [facility] wound care for an initial visit [...] interested in seeing the vascular group in [place] but she wants to wait at this [...] wound start?: July 2022 Mode of Arrival/ Leather Heel Breaster: Personal vehicle Lives with:: Spouse Appetite Description: Within Normal Limits Who helps w/ dressing change?: Wound Care Dept Why Do You Need Help?: Can't Reach Ulcer and Limited mobility Smoking Status: Never smoker [facility] Medical History (Updated 04/30/23 @ 09:07 by [...] By: <Electronically signed by WALTER Poole> 04/30/23906 [facility] Work [facility] Outpatient Procedure (Routine) - Authorized Specialty Diagnoses / Procedures Referred By Contac t Referred To Contact [facility] Diagnoses Pancreatic cyst Procedures EGD - THERAPEUTIC, EUS, OR TUBE INTERVENTIONS EGD INTRMURAL US NEEDLE ASPIRATE/BIOPSY [place]OPHAGS Lior Linton [place] [id number] [place], [place] [id number] [place] [id number] Referral ID Status Reason Start Date Expiration Date Visits Requested Visits Authorized [id number] Authorized Auto-Generat ed Referral 01/07/2023 01/08/2024 1 1 [facility] for referral (narrative)* Outpatient Procedure (Routine) - Closed Specialty Diagnoses / Procedures Referred By Viky t Referred To Contact [facility] Diagnoses Pancreatic cyst Procedures EGD - THERAPEUTIC, EUS, OR TUBE INTERVENTIONS EGD INTRMURAL US NEEDLE ASPIRATE/[place] [address] [place] [address] [place] [id number] Referral ID Status Reason Start Date Expiration Date V isits Requested Visits Authorized [id number] Closed Auto-Generate d Referral 01/07/2023 01/08/2024 1 1 T [facility] for visit Narrative* Outpatient Procedure (Routine) - Closed Specialty Diagnoses / Procedures Referred By Contac t Referred To Contact [facility] Diagnoses Pancreatic cyst Procedures EGD - THERAPEUTIC, EUS, OR TUBE INTERVENTIONS EGD INTRMURAL US NEEDLE ASPIRATE/[place] [address] [place] [address] [facility] [place] [address] Referral ID Status Reason Start Date Expiration Date V isits Requested Visits Authorized [id number] Closed Auto-Generate d Referral 01/07/2023 01/08/2024 1 1 [facility] Chief Complaint and Reason for Visit [...] 1 Skin abnormalities ( L98.9) Referral Organization [facility] Referring Provider First Name Rosanne Referring Provider Last Name Tim Referring Provider Specialty Nurse Pract itioner Referred Organization [facility] Referred Provider Chi Cordero Referred Address ,[place], [place],[address] Referred Provider Specialty Dermatology Referral Priority Routine Specialty Diagnoses / Procedures Referred By Viky sue Referred To Contact Gastroenterology Diagnoses Pancreatic cyst Procedures CONSULT TO GASTROENTEROLOGY OFFICE/OUTPATIENT NEW HIGH MDM 60-74 MINUTES Юлия Odom APRN.PASSPORT APPLICATION EXAMINER [address] [place] [address] Referral ID Status Reason Start Date Expiration Date Visits Requested Visits Authorized [id number] Authorized PCP Requested Referral 09/17/2022 09/17/2023 1 [...] Attending Provi regan Active Rosanne Dumont , CRIMINAL JUSTICE TEACHER Other Provider Active Team Status: Inactive Member Role Status Dates Sherman Larson DO Primary Care Provider Active Dawn Sow DO Referring Provider Active Referral Self Attending Provider Active Team Status: Inactive Member Role Status Dates Sherman Larson DO Primary Care Provider, Attending Provi regan Active 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 Relationship Specialty Start Date End Date Sherman Larson DO [address] [place] [phone] PCP - General Family Medicine 01/15/16 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 Relationship Specialty Start Date End Date Sherman Larson, [address] [phone] PCP - General Family Medicine 01/15/16 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 Relationship Specialty Start Date End Date Sherman Larson, [address] [phone] PCP - General Family Medicine 01/15/16 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 Relationship Specialty Start Date End Date Sherman Larson, [address] [phone] PCP - General Family Medicine 01/15/16 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 Relationship Specialty Start Date End Date Sherman Larson, [address] [phone] PCP - General Family Medicine 01/15/16 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 Relationship Specialty Start Date End Date Sherman Larson, [address] [phone] PCP - General Family Medicine 01/15/16 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 Relationship Specialty Start Date End Date Sherman Larson, [address] [phone] PCP - General Family Medicine 01/15/16 Goals [...] or prosecute any alcohol or drug abuse patient.[facility] the event this information is protected by the Federal Confidentiality of Alcohol and Drug Abuse Patient Records regulations: The Federal rules restrict any use of the information to criminally investigate or prosecute any alcohol or drug abuse patient.[facility] the event this information is protected by the Federal Confidentiality of Alcohol and Drug Abuse Patient Records regulations: The Federal rules restrict any use of the information to criminally investigate or prosecute any alcohol or drug abuse patient.[facility] the event this information is protected by the Federal Confidentiality of Alcohol and Drug Abuse Patient Records regulations: The Federal rules restrict any use of the information to criminally investigate or prosecute any alcohol or drug abuse patient.[facility] the event this information is protected by the Federal Confidentiality of Alcohol and Drug Abuse Patient Records regulations: The Federal rules restrict any use of the information to criminally investigate or prosecute any alcohol or drug abuse patient.[facility] the event this information is protected by the Federal Confidentiality of Alcohol and Drug Abuse Patient Records regulations: The Federal rules restrict any use of the information to criminally investigate or prosecute any alcohol or drug abuse patient.[facility] the event this information is protected by the Federal Confidentiality of Alcohol and Drug Abuse Patient Records regulations: The Federal rules restrict any use of the information to criminally investigate or prosecute any alcohol or drug abuse patient.[facility] the event this information is protected by the Federal Confidentiality of Alcohol and Drug Abuse Patient Records regulations: The Federal rules restrict any use of the information to criminally investigate or prosecute any alcohol or drug abuse patient.[facility] the event this information is protected by the Federal Confidentiality of Alcohol and Drug Abuse Patient Records regulations: The Federal rules restrict any use of the information to criminally investigate or prosecute any alcohol or drug abuse patient.[facility] the event this information is protected by the Federal Confidentiality of Alcohol and Drug Abuse Patient Records regulations: The Federal rules restrict any use of the information to criminally investigate or prosecute any alcohol or drug abuse patient.[facility] INFORMATION SOURCE (unrecogn ized section and content) DATE CREATED AUTHOR 02/05/2023 [facility] DATE CREATED AUTHOR AUTHOR'S ORGANIZ ATION 02/24/2023 [facility] DATE CREATED AUTHOR AUTHOR'S ORGANIZ ATION 09/24/2023 [facility] FOR RECORDS PERTAINING TO PATIENTS WHO [...] BE BASED ON THE PRIMARY CLINICAL RECORDS. [employer] provides no warranty or guarantee of the accuracy or completeness of information in this document.
== END 2023-10-08 11:35 | disposition home or self-care (01) ==
LOC: VC 11:34
PROVIDERS: PCP Radiology Diagnostic Radiology; Visit Provider Radiology Diagnostic Radiology
DX: I80.01 Phlebitis and thrombophlebitis of superficial vessels of right lower extremity (principal)
CPT/HCPCS: 93971; G0463

== ENCOUNTER 2023-10-12 09:03 | Outpatient (RCR) | payer MEDICARE, OTHER, SELFPAY | END 2023-11-23 15:48 | disposition home or self-care (01) | LOC: OT 09:03 | PROVIDERS: PCP Radiology Diagnostic Radiology; Visit Provider Radiology Diagnostic Radiology | DX: I89.0 Lymphedema, not elsewhere classified (principal); R60.0 Localized edema | CPT/HCPCS: 97140; 97530; 97535 ==

== ENCOUNTER 2023-10-20 12:53 | Outpatient (OUT) | payer MEDICARE, OTHER, SELFPAY ==
--- NOTE | 2023-10-20 12:54 | VEIN_ITS ---
The [address] [address] Patient Name: OXANA CASTRO MRN: [id number] date: 1955 Sex: F Assigned Patient Location: Current Patient Location: Accession/Order Number: [id number] Exam Date: 10/20/2023 12:54 Report Date: 10/20/2023 14:01 At the request of: COLTON HAMLIN Procedure: VC INJ Foam Sclerosant WUS AUTOMATIC LATHE OPERATOR PROCEDURE: VC INJ Foam Sclerosant WUS AUTOMATIC LATHE OPERATOR, left leg COMPARISON: None. HISTORY: Pain due to varicose veins of bilateral legs I83.813 Pre-operative Diagnosis: CEAP class C5 venous insufficiency with pain, tenderness, edema and incompetent left saphenous and varicose vein(s), chronic venous insufficiency left leg secondary to venous incompetence Post-operative Diagnosis: CEAP class C5 venous insufficiency with pain, tenderness, edema and incompetent left saphenous and varicose vein(s), chronic venous insufficiency left leg secondary to venous incompetence Procedure Performed: 1. Ultrasound-guided microfoam chemical ablation with Varithenaregistered 2. Intraoperative ultrasound guidance Anesthesia: None Indications for Procedure: 68-year-old female who presents with a long history of lower extremity pain and swelling varicose veins culminating venous stasis ulcerations. The patient failed conservative medical therapy including medical compression stockings, exercise and analgesics. Prior procedures include endovenous laser ablation and Microfoam chemical ablation Multiple incompetent varicosities of the left leg. Duplex scan showed reflux and enlarged diameters up to 5 mm. The patient underwent informed consent including management options where the complications of infection, bleeding, pain, and skin injury were discussed. Particular attention was spent discussing thrombus extension and deep vein thrombosis as well as the possibility of pulmonary embolus and treatment with oral or injectable blood thinners. Procedure: The patient walked to the procedure room. All applicable staff donned appropriate apparel. A procedure timeout was performed to confirm correct patient, correct extremity, correct procedure, and correct room set-up including presence of all applicable supplies, devices, and drugs. A duplex ultrasound, performed by myself confirmed the location and incompetence of branch saphenous varicosities and their course was marked on the skin together with the dilated tributaries. The extent of treatment of the vein and the associated varicosities was determined through ultrasound mapping. The skin was prepped and then punctured with a butterfly needle and advanced under ultrasound guidance. The Varithenaregistered canister was activated and the canister was primed and purged as required in the instructions for use. Varithenaregistered was drawn into a sterile syringe. The following injections were made: 6 cc injected into a 6 mm varicose veins left mid anterior lower leg 6 cc injected into a 4 mm varicose vein left distal medial leg 3 cc injected into a 4 mm varicose veins left proximal medial lower leg Varithenaregistered was slowly administered at 0.5-1.0 cc/second with close observation by ultrasound of its course in the vessels. Total volume utilized was: 15 cc. Following administration of Varithenaregistered the leg was elevated and the patient was asked to repeatedly dorsiflex the ankle to limit flow of Varithenaregistered into perforating veins. Once appropriate spasm had been confirmed in the treated veins, the vascular catheter was removed from the leg and light pressure was applied over the puncture site for hemostasis. The common femoral and deep superficial veins were then evaluated for flow and compressibility prior to dressing placement. The lower extremity was kept elevated at 45 degrees above the horizontal and cording material was applied over the saphenous segments and tributaries to allow for eccentric compression over the target vessels including the targeted saphenous vein(s). A multilayer dressing was applied consisting of foam pads, coban and thigh-high 20-30 mm Hg compression elastic support hose were placed on the patient. The leg was lowered only after compression had been applied and the patient was immediately ambulatory. The patient ambulated 10 minutes under supervision and was without apparent concerns at time of release. Post-care instructions include advising patient to keep post-treatment bandages in place and dry for 48 hours, avoid extended periods of inactivity, avoid heavy exercise for one week, wear compression stockings on the treated leg continuously for two weeks, to walk daily for 10 minutes over the next month. The patient was instructed to take an anti-inflammatory medicine as needed and to follow up for color duplex scan of the Saphenous veins, the treated branch saphenous varicosities, the adjacent deep veins, and additional treatment within 7 days. PERSONNEL: Lavinia Barcenas RN Electronically authenticated by: COLTON HAMLIN Date: 10/20/2023 14:01
== END 2023-10-20 12:54 | disposition home or self-care (01) ==
LOC: VC 12:53
PROVIDERS: PCP Radiology Diagnostic Radiology; Visit Provider Radiology Diagnostic Radiology
DX: I83.813 Varicose veins of bilateral lower extremities with pain (principal)
CPT/HCPCS: 36466

== ENCOUNTER 2023-10-27 14:28 | Outpatient (OUT) | payer MEDICARE, OTHER, SELFPAY ==
--- NOTE | 2023-10-27 14:29 | VEIN_ITS ---
Patient Name: OXANA CASTRO MR#: [id number] : 1955 Exam Date: 10/27/2023 Ordering Doctor: DR MICHELE MCCALL M.D. RADIOLOGY REPORT PROCEDURE: VC EXT VENOUS LT LIMITED COMPARISON: VC EXT VENOUS LT LIMITED, 09/21/2023. VC EXT VENOUS LT LIMITED, 09/07/2023. INDICATIONS: I80.02 Phlebitis of superficial veins of lt lower extremity TECHNIQUE: Lower extremity samson scale and Duplex Doppler evaluation of the deep venous system from the inguinal ligament through the calf veins. FINDINGS: REGION: Left lower extremity. THROMBI: Negative for DVT. Varithena induced thrombus visualized at dist/med calf, mid/ant calf, and prox/med calf. COMPRESSIBILITY: Non-compressible segments corresponding to thrombus FLOW: Areas of no flow corresponding to thrombus OTHER: Partially patent banquet cook visualized at mid/med calf 5.5mm with 0.8s reflux. Proximal AASV also visualized measuring 7.9mm with 1.3s reflux. CONCLUSION: 1. Post ablation occlusion of treated incompetent left leg varicose veins 2. Incompetent left anterior accessory saphenous vein measuring 7.9 mm in diameter 3. Incompetent left leg perforating vein measuring 5.5 mm in diameter Dictated by: Michele Mccall MD on 10/27/2023 at 15:00 Approved by: Michele Mccall MD on 10/27/2023 at 15:04
--- NOTE | 2023-10-27 14:29 | VEIN_ITS ---
Patient Name: OXANA CASTRO MR#: [id number] : 1955 Exam Date: 10/27/2023 Ordering Doctor: DR MICHELE MCCALL M.D. RADIOLOGY REPORT PROCEDURE: FACILITY EST [facility] - OFFICE VISIT FOLLOW UP COMPARISON: [facility] EST LMT[facility], 10/08/2023. [facility] EST LMT[facility], 09/21/2023. PROGRESS NOTES: The patient reports no significant problems following micro foam chemical ablation of the left leg. The patient did wear her compression wraps. The patient did not require oral analgesics. The patient is unable to exercise due to his physical condition. Physical exam demonstrates marked reduction in left leg pain swelling and erythema. Multiple thrombosed varicose veins can be palpated. Review of the ultrasound performed the same day demonstrates occlusive thrombus extending throughout the treated left leg varicose veins. Incompetent dilated left anterior accessory saphenous vein identified by ultrasound. Incompetent left leg perforating vein. Left leg incompetent varicose veins. The patient expressed a desire to proceed with treatment of incompetent left anterior accessory saphenous vein with intravenous laser ablation. VEIN/[facility] EST LMTD IMPRESSION: 1. Successful ablation of the incompetent left leg varicose veins 2. Persistent incompetent left anterior accessory saphenous. PLAN: Intravenous laser ablation left anterior accessory saphenous vein Nurse notes, history and physical were reviewed and confirmed, see attached forms. The nurse was present throughout the physical exam and consultation Dictated by: Michele Mccall MD on 10/27/2023 at 15:09 Approved by: Michele Mccall MD on 10/27/2023 at 15:12
--- OUTSIDE RECORDS SUMMARY | 2023-10-27 14:39 | XMS_ITS | CCD ---
Author Name Unknown Address [address] [place] [address] Organization [facility] Care Team Providers Care Cold Roller Name Role Phone Rosanne Dumont Unavailable Sherman Larson Unavailable DO Sherman Larson Primary Care Provider DO Sherman Larson Attending Provider [phone] DO Dawn Sow Referring Provider Self, [...] Larson Attending Provider WALTER Poole Attending Provider [phone] WALTER Dumont Other Provider WALTER Poole Attending Provider Salvador, DO Whitaker Primary Care Provider [phone] Stephans, DO Sherman Attending Provider Self, Referral Attending Provider Unavailable Stephans, Sherman Primary Care Provider WALTER Poole Attending Provider Self, Referral Attending Provider Unavailable Salvador, DO Whitaker Attending Provider [phone] Eli, DUMPER-C Judith A Attending Provider Eli, Judith A [...] 2023 1:33pm take 1 tablet by keon th once daily Aspirin 325 mg 325 mg one tab orally daily Active Comment on above: Aspirin (Aspirin Low Dose) 81 mg Tablet,Delayed Release (Dr/Ec) Active 2 TAB PO Daily December 07, 2018 11:02am atorvastatin 10 mg oral tablet (20 sources) HMG-CoA Reductase Inhibitor Start: 6 take 1 tablet by mouth two times weekly Lipitor 10 mg 1 tablet Orally Twice a week May, Active Start: 06-05-2016 Atorvastatin ( Lipitor) 10 mg Tablet Active 10 MG PO EVERY 3-4 DAYS January 05, 2018 11:00pm Start: 06-05-2016 Lipitor 10 mg 1 tablet every 2 days Orally Once a day May, Active Comment on above: Take 10 mg by mouth once daily. Every other day per MD cholecalciferol 0.125 mg oral tablet (7 sources) Vitamin D Start: take 1 tablet by mouth once daily [...] of therapy FreeStyle Precision Joe Test - (19 sources) FreeStyle Precis ion Joe Test - use to double check BG with sensor In Vitro PRN for 90 days Active horse chestnut seed 300 mg oral capsule (5 sources) Start: 03-25-2023 take 300 mg by mouth once daily Horse [place] Active 300 MG PO Daily March 24, [...] if >200 half dose) Subcutaneous as directed (expect up to 40 units/day) Active insulin glargine 100 unt/ml injectable solution (20 sources) Insulin Analog Start: 01-06-2018 inject 38 [IU] by subcutaneous injection once daily at bedtime Insulin Glargine (Lantus U-100 Insulin) 100 unit/mL Solution Active 38 UNIT SUBCUT Daily at bedtime January 06, 2018 12:00am Lantus SoloStar 100 UNIT/ML 40 units qhs SQ at bedtime for 90 days titrate up to 50 units/day Active inject 40 [IU] by nash bcutaneous [...] MG/3ML 1.8mg Subcutaneous Onc e a day Active Comment on above: Inject 1.8 mg subcut aneously once daily. metFORMIN hydrochloride 1000 mg oral tablet (20 sources) Biguanide Start: 8 take 1 tablet by mouth twice daily Metformin (Glucophage) 1,000 mg Tablet Active 1000 MG PO Twice daily January 05, 2018 11:00pm metFORMIN HCl ER 500 MG TAKE 2 TABLETS TWICE A DAY Active take 2 tablets by mouth twice da kanwal Glucophage XR 500 mg 2 tabs Orally bid Active Comment on above: Take 1,000 mg by keon th twice daily with meals. probiotic (3 sources) probiotic as dir ected Active Vitamin B Complex (19 sources) take 1 tablet by mouth once [...] January 06, 2018 9:27am Vitamin D 5000 (19 sources) Vitamin D 5000 1 cap(s) p.o. daily Active Completed/Discontinued Medications Medication Drug Class(es) Dates Sig (Normalized) Sig (Original) [id number] 200 actuat albuterol 0.09 mg/actuat metered dose [...] Not-Taking B-12 - up to 1000 mcg (16 sources) Start: 05-21-2016 Start: 05-21-2016 B-12 - [...] tablet (7 sources) Nonsteroidal Anti-inflammatory Drug Start: 018 End: 019 take 200 mg by mouth [...] tablet Discontinued 20 MG PO Every evening 30 October 29, 2020 12:00am July 17, [...] SOD IUM HYALURONATE Jan, 25 mg Triamcinolone (16 sources) Corticosteroid Start: 05-21-2016 Start: 05-21-2016 KENALOG [...] of uterus, part unspecified] Onset: 12-15-2015 Chronic Cancer of uterus (2 sources) H/O: malignant neoplasm; Translations: [Personal history of malignant neoplasm of other parts of uterus] Episodic Chronic ulcer of skin (20 sources) Ulcer; [...] [Hyperglycemia, unspecified] 10-29-2020 Episodic 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; 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 Disorders of lipid metabolism (20 sources) Hyperlipidemia; Translations: [Hyperlipidemia, unspecified] Onset: 12-21-2015 Resolved: 04-09-2022 Chronic Essential hypertension (20 sources) Hypertensive disorder; Translations: [Essential (primary) hypertension] Onset: 09-10-2021 Resolved: 04-09-2022 Chronic Mycoses (10 sources) Tinea cruris; Translations: [Tinea cruris] 04-20-2023 Episodic Nutritional deficiencies (20 sources) Vitamin D deficiency; Translations: [Vitamin D deficiency, unspecified] Onset: 09-23-2021 Resolved: 09-23-2021 Chronic Nutritional deficiencies (20 sources) Vitamin B12 deficiency (non anemic); Translations: [Deficiency of other specified B group vitamins] Onset: 09-10-2021 Resolved: 04-09-2022 Episodic Open wounds of head; neck; and trunk (7 sources) Wound abscess; Translations: [Wound abscess] 02-10-2018 Episodic Osteoarthritis (20 sources) Osteoarthritis of knee; Translations: [Osteoarthritis of knee, unspecified] Chronic Other aftercare (20 sources) Long-term current use of insulin; Translations: [chief technologist (current) use of insulin] Episodic Other aftercare (7 sources) custodial (current) use of insulin Onset: 09-10-2021 Resolved: 04-09-2022 Episodic Other aftercare (2 sources) History of malignant neoplasm of endometrium; Translations: [Encounter for follow-up examination after completed treatment for malignant neoplasm] Episodic Other circulatory disease (19 sources) Elevated blood pressure; Translations: [Elevated blood-pressure reading, without diagnosis of hypertension] Episodic Other connective tissue disease (1 source) History of repair of hip joint; Translations: [Presence of right artificial hip joint] Chronic Other connective tissue disease (19 sources) History of total hip arthroplasty; Translations: [Presence of right artificial hip joint] Chronic Other diseases of veins and lymphatics (7 sources) Lymphedema of bilateral lower limbs; Translations: [Lymphedema, not elsewhere classified] 05-25-2019 Chronic Other diseases of veins and lymphatics (6 sources) Lymphedema, not elsewhere classified; Translations: [Other lymphedema] 03-30-2023 Chronic Other diseases of veins and lymphatics (19 sources) Peripheral venous insufficiency; Translations: [Venous insufficiency (chronic) (peripheral)] Episodic Other diseases of veins and lymphatics (7 sources) Venous insufficiency of leg; Translations: [Other specified disorders of veins] 12-07-2018 Episodic Other diseases of veins and lymphatics (6 sources) Other specified disorders of veins; Translations: [Venous (peripheral) insufficiency, unspecified] 03-30-2023 Episodic Other diseases of veins and lymphatics (1 source) Vascular insufficiency; Translations: [Venous insufficiency (chronic) (peripheral)] Episodic Other diseases of veins and lymphatics (1 source) Venous insufficiency (chronic) (peripheral) Episodic Other infections; including parasitic (7 sources) Disorder due to infection; Translations: [Unspecified infectious disease] 11-09-2019 Episodic Other lower respiratory disease (20 sources) Multiple nodules of lung; Translations: [Other nonspecific abnormal finding of lung field] Episodic Other lower respiratory disease (7 sources) Hypoxia; Translations: [Hypoxemia] 10-22-2020 Episodic Other lower respiratory disease (10 sources) Solitary nodule of lung; Translations: [Solitary pulmonary nodule] Episodic Other lower respiratory disease (1 source) Solitary pulmonary nodule Episodic Other non-traumatic joint disorders (19 sources) Joint pain; Translations: [Pain in unspecified [...] conditions (not mental disorders or infectious disease) (20 sources) Patient encounter status; Translations: [Encounter for [...] the skin and subcutaneous tissue, unspecified Episodic Pancreatic disorders (not diabetes) (5 sources) Cyst of pancreas; Translations: [Cyst of pancreas] Onset: 09-17-2022 Episodic Phlebitis; thrombophlebitis and thromboembolism (20 sources) [...] sources) Edema, unspecified; Translations: [Edema] 03-30-2023 Episodic Residual codes; unclassified (1 source) Family history of diseases of the blood and blood-forming organs and certain disorders involving the immune mechanism Episodic Respiratory failure; insufficiency; arrest (adult) (7 [...] source) Perianal abscess; Translations: [Anal abscess] Episodic Other non-traumatic joint disorders (1 source) Pain in right hip joint; Translations: [Pain in right hip] Episodic Other upper respiratory disease (1 source) Nasal congestion Onset: 03-25-2022 Resolved: 03-25-2022 Episodic Pulmonary heart disease (10 sources) Pulmonary [...] RESISTANT TO ALL B-LACTAM DRUGS. PERFORMED BY: [place] [address] PATHOLOGIST DAYCARE TEACHER LOCO PERRY M.D. [facility] Comment on above: Performed By: #### C USUP #### [place] [id number] [place] A1C HEMOGLOBINon 09-09-2023 HbA1c (Bld) [Mass fraction] 8.3 % EUDOWEB Other Glucose - FINGER STICKon Glucose [Mass/Vol] 175 mg/dL EUDOWEB Other HbA1c (Bld) [Mass fraction]o n 09-09-2023 A1C HEMOGLOBIN Encapson Other MM screening mammo BI w/CADo n 07-15-2023 MM screening mammo BI w/CAD [facility] [place] [address] [place], [place] [id number] Mammography Report Signed Patient: Magy Castro MR#: [id number] : 1955 Acct:[id number] Age/Sex: 67 / F ADM Date: 07/15/23 Loc: [place] Room: Type: [facility] Attending Dr: Referral Self Copies to: Sherman Larson,DO SELF,REFERRAL Ordering Provider: SELF,REFERRAL Date of Service: [...] 07/15/23 1443 Signed By: 07/15/23 1450 Normal [facility] Alanine aminotransferase [En zymatic activity/volume] in Serum or PlasmaOrdered By: Sherman Larson on 03-31-2023 ALT [Catalytic activity/Vol] 17 U/L 7-52 [facility] Albumin [Mass/volume] in Ser um or Plasma by Bromocresol green (BCG) dye binding methoOrdered By: Sherman Larson on 03-31-2023 Albumin BCG dye [Mass/Vol] 4.1 g/dL 3.5-5.7 [facility] Alkaline phosphatase [Enzyma tic activity/volume] in Serum or PlasmaOrdered By: Sherman Larson on 03-31-2023 ALP [Catalytic activity/Vol] 55 U/L 34-104 [facility] Aspartate aminotransferase [ Enzymatic activity/volume] in Serum or PlasmaOrdered By: Sherman Larson on 03-31-2023 AST [Catalytic activity/Vol] 14 U/L 13-39 [facility] Basophils Auto (Bld) [#/Vol] Ordered By: Sherman Larson on 03-31-2023 Basophils (Bld) [#/Vol] 0.0 10*3/uL 0.0-0.2 [facility] Basophils/100 WBC Auto (Bld) Ordered By: Sherman Larson on 03-31-2023 Basophils/100 WBC (Bld) 0.6 % . F [facility] Bilirubin.total [Mass/volume ] in Serum or PlasmaOrdered By: Sherman Larson on 03-31-2023 Bilirubin [Mass/Vol] 0.5 mg/dL 0.3-1.0 [facility] Calcium [Mass/volume] in Ser um or PlasmaOrdered By: Sherman Larson on 03-31-2023 Calcium [Mass/Vol] 9.2 mg/dL 8.6-10.3 [facility] Carbon dioxide, total [Moles /volume] in Serum or PlasmaOrdered By: Sherman Larson on 03-31-2023 CO2 [Moles/Vol] 24.9 mmol/L 21.0-31.0 [facility] Chloride [Moles/volume] in [place] or PlasmaOrdered By: Sherman Larson on 03-31-2023 Chloride [Moles/Vol] 103 mmol/L 98-107 [facility] Cholesterol [Mass/volume] in Serum or PlasmaOrdered By: Sherman Larson on 03-31-2023 Cholesterol [Mass/Vol] 144 mg/dL 140-200 [facility] Comment on above: Chol less than 200 m g/dl low riskChol 201-239 mg/dl borderline riskChol 240 mg/dl and greater high risk Cholesterol in LDL Calc [Mas s/Vol]Ordered By: Sherman Larson on 03-31-2023 Cholesterol in LDL [Mass/Vol] 61 mg/dL 0-100 [facility] Comment on above: LDL ATP III CLASSIFI CATIONLDL less than 100 mg/dL OptimalLDL 100-129 mg/dL Near or above optimalLDL 130-159 mg/dL Borderline highLDL 160-189 mg/dL HighLDL greater than 189 mg/dL Very high Cholesterol in VLDL Calc [Ma ss/Vol]Ordered By: Sherman Larson on 03-31-2023 Cholesterol in VLDL [Mass/Vol] 43 mg/dL [facility] Complete Blood Count Auto Di ffon 03-31-2023 Basophils (Bld) [#/Vol] 0.0 10*3/uL Normal 0.0-0.2 [facility] Comment on above: Order Comment: Reaso n for Exam Hyperlipidemia Result Comment: PERF ORMED BY: [place] [address] PATHOLOGIST DAYCARE TEACHER LOCO PERRY M.D. Performed By: #### C BC #### [facility] [address] Basophils/100 WBC (Bld) 0.6 % Normal . F [facility] Comment on above: Order Comment: Reaso n for Exam Hyperlipidemia Performed By: #### C BC #### [facility] [address] [place] [address] [place] Eosinophils (Bld) [#/Vol] 0.1 10*3/uL Normal 0.0-0.45 [facility] Comment on above: Order Comment: Reaso n for Exam Hyperlipidemia Performed By: #### C BC #### [facility] [address] [place] [address] [place] Eosinophils/100 WBC (Bld) 2.0 % Normal . [facility] Comment on above: Order Comment: Reaso n for Exam Hyperlipidemia Performed By: #### C BC #### [facility] [address] Erythrocyte distribution width (RBC) [Ratio] 17.0 % High 11.9-15.3 [facility] Comment on above: Order Comment: Reaso n for Exam Hyperlipidemia Performed By: #### C BC #### [facility] [address] Hematocrit (Bld) [Volume fraction] 43.0 % Normal 34.0-46.4 [facility] Comment on above: Order Comment: Reaso n for Exam Hyperlipidemia Performed By: #### C BC #### [address] Hemoglobin (Bld) [Mass/Vol] 13.9 g/dL Normal 11.8-15.4 [facility] Comment on above: Order Comment: Reaso n for Exam Hyperlipidemia Performed By: #### C BC #### [address] Lymphocytes (Bld) [#/Vol] 1.8 10*3/uL Normal 1.00-4.8 [facility] Comment on above: Order Comment: Reaso n for Exam Hyperlipidemia Performed By: #### C BC #### [address] Lymphocytes/100 WBC (Bld) 25.6 % Normal . [facility] Comment on above: Order Comment: Reaso n for Exam Hyperlipidemia Performed By: #### C BC #### [place] [address] [place] MCH (RBC) [Entitic mass] 26.9 pg Normal 24.7-34.3 [facility] Comment on above: Order Comment: Reaso n for Exam Hyperlipidemia Performed By: #### C BC #### [address] MCV (RBC) [Entitic vol] 82.9 fL Normal 80-100 F [facility] Comment on above: Order Comment: Reaso n for Exam Hyperlipidemia Performed By: #### C BC #### [address] Mean Corpuscular HGB Conc 32.4 g/dL Normal 32.0-35.0 [facility] Comment on above: Order Comment: Reaso n for Exam Hyperlipidemia Performed By: #### C BC #### [place] [address] [place] Monocytes (Bld) [#/Vol] 0.5 10*3/uL Normal 0.0-0.8 [facility] Comment on above: Order Comment: Reaso n for Exam Hyperlipidemia Performed By: #### C BC #### [facility] [address] [place] [id number] [place] Monocytes/100 WBC (Bld) 7.5 % Normal . F [facility] Comment on above: Order Comment: Reaso n for Exam Hyperlipidemia Performed By: #### C BC #### [facility] [address] [place] [address] [place] Neutrophils (Bld) [#/Vol] 4.6 10*3/uL Normal 1.8-7.7 [facility] Comment on above: Order Comment: Reaso n for Exam Hyperlipidemia Performed By: #### C BC #### [facility] [address] [place] [address] [place] Neutrophils/100 WBC (Bld) 64.3 % Normal . [facility] Comment on above: Order Comment: Reaso n for Exam Hyperlipidemia Performed By: #### C BC #### [facility] [address] [place] [address] [place] NRBC% 0.1 /100{WBC} Normal 0-0.5 [facility] Comment on above: Order Comment: Reaso n for Exam Hyperlipidemia Performed By: #### C BC #### [facility] [address] [place] [address] [place] Platelet mean volume (Bld) [Entitic vol] 7.4 fL Normal 6.3-10.7 [facility] Comment on above: Order Comment: Reaso n for Exam Hyperlipidemia Performed By: #### C BC #### [facility] [address] [place] [address] [place] Platelets (Bld) [#/Vol] 298 10*3/uL Normal 150-450 [facility] Comment on above: Order Comment: Reaso n for Exam Hyperlipidemia Performed By: #### C BC #### [facility] [address] [place] [id number] [place] RBC (Bld) [#/Vol] 5.19 10*6/uL High 3.60-5.00 [facility] Comment on above: Order Comment: Reaso n for Exam Hyperlipidemia Performed By: #### C BC #### [facility] [address] [place] [address] WBC (Bld) [#/Vol] 7.2 10*3/uL Normal 3.8-11.6 [facility] Comment on above: Order Comment: Reaso n for Exam Hyperlipidemia Performed By: #### C BC #### [facility] [address] [place] [address] Comprehensive Metabolic Pane riaz 03-31-2023 Albumin [Mass/Vol] 4.1 g/dL Normal 3.5-5.7 [facility] Comment on above: Order Comment: Reaso n for Exam Hyperlipidemia Performed By: #### C MP, LIPID #### [address] Albumin/Globulin [Mass ratio] 1.3 {ratio} Normal [facility] Comment on above: Order Comment: Reaso n for Exam Hyperlipidemia Performed By: #### C MP, LIPID #### [facility] [address] [place] [address] ALP [Catalytic activity/Vol] 55 U/L Normal 34-104 [facility] Comment on above: Order Comment: Reaso n for Exam Hyperlipidemia Performed By: #### C MP, LIPID #### [facility] [address] [place] [address] ALT [Catalytic activity/Vol] 17 U/L Normal 7-52 [facility] Comment on above: Order Comment: Reaso n for Exam Hyperlipidemia Performed By: #### C MP, LIPID #### [facility] [address] [place] [address] Anion gap [Moles/Vol] 12.2 mmol/L Normal 6.0-15.0 [facility] Comment on above: Order Comment: Reaso n for Exam Hyperlipidemia Performed By: #### C MP, LIPID #### [facility] [address] [place] [address] AST [Catalytic activity/Vol] 14 U/L Normal 13-39 [facility] Comment on above: Order Comment: Reaso n for Exam Hyperlipidemia Performed By: #### C MP, LIPID #### [facility] [address] Bilirubin [Mass/Vol] 0.5 mg/dL Normal 0.3-1.0 [facility] Comment on above: Order Comment: Reaso n for Exam Hyperlipidemia Performed By: #### C MP, LIPID #### [facility] [address] Calcium [Mass/Vol] 9.2 mg/dL Normal 8.6-10.3 [facility] Comment on above: Order Comment: Reaso n for Exam Hyperlipidemia Performed By: #### C MP, LIPID #### [facility] [address] Chloride [Moles/Vol] 103 mmol/L Normal 98-107 [facility] Comment on above: Order Comment: Reaso n for Exam Hyperlipidemia Performed By: #### C MP, LIPID #### [facility] [address] CO2 [Moles/Vol] 24.9 mmol/L Normal 21.0-31.0 [facility] Comment on above: Order Comment: Reaso n for Exam Hyperlipidemia Performed By: #### C MP, LIPID #### [facility] [address] Creatinine [Mass/Vol] 0.68 mg/dL Normal 0.60-1.20 [facility] Comment on above: Order Comment: Reaso n for Exam Hyperlipidemia Performed By: #### C MP, LIPID #### [facility] [address] [place] [address] [place] GFR/1.73 sq M.predicted MDRD (S/P/Bld) [Vol rate/Area] mL/min/{1.73_m2} Normal [facility] Comment on above: Order Comment: Reaso n for Exam Hyperlipidemia Performed By: #### C MP, LIPID #### [facility] [address] [place] [address] [place] Globulin (S) [Mass/Vol] 3.1 g/dL Normal [facility] Comment on above: Order Comment: Reaso n for Exam Hyperlipidemia Performed By: #### C MP, LIPID #### [facility] [address] [place] [address] [place] Glucose [Mass/Vol] 139 mg/dL High 70-100 [facility] Comment on above: Order Comment: Reaso n for Exam Hyperlipidemia Result Comment: [place] Glucose Reference Range is dependent on time and content of last meal. Glucose of more than 200 mg/dL in a nonstressed, ambulatory subject supports the diagnosis of Diabetes Mellitus. ADA recommended reference range Performed By: #### C MP, LIPID #### [facility] [address] Potassium [Moles/Vol] 4.1 mmol/L Normal 3.5-5.1 [facility] Comment on above: Order Comment: Reaso n for Exam Hyperlipidemia Performed By: #### C MP, LIPID #### [facility] [address] Protein [Mass/Vol] 7.2 g/dL Normal 6.4-8.9 [facility] Comment on above: Order Comment: Reaso n for Exam Hyperlipidemia Performed By: #### C MP, LIPID #### [facility] [address] [place] [address] [place] Sodium [Moles/Vol] 136 mmol/L Normal 136-145 [facility] Comment on above: Order Comment: Reaso n for Exam Hyperlipidemia Performed By: #### C MP, LIPID #### [facility] [address] [place] [address] [place] Urea nitrogen [Mass/Vol] 19 mg/dL Normal 7-25 [facility] Comment on above: Order Comment: Reaso n for Exam Hyperlipidemia Performed By: #### C MP, LIPID #### [facility] [address] [place] [address] [place] Creatinine [Mass/volume] in Serum or PlasmaOrdered By: Sherman Larson on 03-31-2023 Creatinine [Mass/Vol] 0.68 mg/dL 0.60-1.20 [facility] Creatinine [Mass/volume] in UrineOrdered By: Rosanne Dumont on 03-31-2023 Creatinine (U) [Mass/Vol] 70.0 mg/dL 11.0-20.0 [facility] Eosinophils Auto (Bld) [#/Vo l]Ordered By: Sherman Larson on 03-31-2023 Eosinophils (Bld) [#/Vol] 0.1 10*3/uL 0.0-0.45 [facility] Eosinophils/100 WBC Auto (Bl d)Ordered By: Sherman Larson on 03-31-2023 Eosinophils/100 WBC (Bld) 2.0 % . [facility] Erythrocyte distribution wid th Auto (RBC) [Ratio]Ordered By: Sherman Larson on 03-31-2023 Erythrocyte distribution width (RBC) [Ratio] 17.0 % 11.9-15.3 [facility] Globulin Calc (S) [Mass/Vol] Ordered By: Sherman Larson on 03-31-2023 Globulin (S) [Mass/Vol] 3.1 g/dL F [facility] Glucose [Mass/volume] in Ser um or PlasmaOrdered By: Sherman Larson on 03-31-2023 Glucose [Mass/Vol] 139 mg/dL 70-100 [facility] Comment on above: ADA recommended refe rence rangeRandom Glucose Reference Range is dependent on time and content of last meal. Glucose of more than 200 mg/dL in a nonstressed, ambulatory subject supports the diagnosis of Diabetes Mellitus. Hematocrit Auto (Bld) [Volum e fraction]Ordered By: Sherman Larson on 03-31-2023 Hematocrit (Bld) [Volume fraction] 43.0 % 34.0-46.4 [facility] Hemoglobin [Mass/volume] in BloodOrdered By: Sherman Larson on 03-31-2023 Hemoglobin (Bld) [Mass/Vol] 13.9 g/dL 11.8-15.4 [facility] Leukocytes [#/volume] correc kedar for nucleated erythrocytes in Blood by Automated counOrdered By: Sherman Larson on 03-31-2023 WBC corrected for nucl RBC Auto (Bld) [#/Vol] 7.2 10*3/uL 3.8-11.6 [facility] Lipid Panelon 03-31-2023 Cholesterol [Mass/Vol] 144 mg/dL Normal 140-200 [facility] Comment on above: Order Comment: Reaso n for Exam Hyperlipidemia Result Comment: Chol less than 200 mg/dl low risk Chol 201-239 mg/dl borderline risk Chol 240 mg/dl and greater high risk Performed By: #### C MP, LIPID #### [facility] [address] [place] [id number] [place] Cholesterol in HDL [Mass/Vol] 39 mg/dL Normal 23-92 [facility] Comment on above: Order Comment: Reaso n for Exam Hyperlipidemia Result Comment: HDL CHOL ATP-III CLASSIFICATION Cardiovascular Risk HDL > or equal to 60 mg/dL LOW HDL < 40 mg/dL HIGH Performed By: #### C MP, LIPID #### [facility] [address] Cholesterol.total/Zahra sterol in HDL [Mass ratio] 3.7 {ratio} Normal <5.0 [facility] Comment on above: Order Comment: Reaso n for Exam Hyperlipidemia Result Comment: PERF ORMED BY: [place] [address] PATHOLOGIST DAYCARE TEACHER LOCO PERRY M.D. Performed By: #### C MP, LIPID #### [facility] [address] LDL Cholesterol,Calculated 61 mg/dL Normal 0-100 [facility] Comment on above: Order Comment: Reaso n for Exam Hyperlipidemia Result Comment: LDL ATP III CLASSIFICATION LDL less than 100 mg/dL Optimal LDL 100-129 mg/dL Near or above optimal LDL 130-159 mg/dL Borderline high LDL 160-189 mg/dL High LDL greater than 189 mg/dL Very high Performed By: #### C MP, LIPID #### [facility] [address] [place] [id number] [place] Triglyceride w/Reflex 218 mg/dL High 0-149 [facility] Comment on above: Order Comment: Reaso n for Exam Hyperlipidemia Result Comment: TRIG ATP III CLASSIFICATION TRIG less than 150 mg/dL Normal TRIG 150-199 mg/dL Borderline high TRIG 200-500 mg/dL High TRIG greater than 500 mg/dL Very high Standard traceable to the Center for Disease Conrtrol and Prevention (CDC) test method. Performed By: #### C MP, LIPID #### [facility] [address] VLDL CHOLESTEROL 43 mg/dL Normal [facility] Comment on above: Order Comment: Reaso n for Exam Hyperlipidemia Performed By: #### C MP, LIPID #### [facility] [address] Lymphocytes Auto (Bld) [#/Vo l]Ordered By: Sherman Larson on 03-31-2023 Lymphocytes (Bld) [#/Vol] 1.8 10*3/uL 1.00-4.8 [facility] Lymphocytes/100 WBC Auto (Bl d)Ordered By: Sherman Larson on 03-31-2023 Lymphocytes/100 WBC (Bld) 25.6 % . [facility] MCH Auto (RBC) [Entitic mass ]Ordered By: Sherman Larson on 03-31-2023 MCH (RBC) [Entitic mass] 26.9 pg 24.7-34.3 [facility] MCHC Auto (RBC) [Mass/Vol]Or dered By: Sherman Larson on 03-31-2023 MCHC (RBC) [Mass/Vol] 32.4 g/dL 32.0-35.0 [facility] MCV Auto (RBC) [Entitic vol] Ordered By: Sherman Larson on 03-31-2023 MCV (RBC) [Entitic vol] 82.9 fL 80-100 F [facility] MicroAlb Creat Ratio,Uon Albumin DL <= 20 mg/L (U) [Mass/Vol] 0.9 mg/dL Normal 0.0-1.8 [facility] Comment on above: Order Comment: Reaso n for Exam Type 2 diabetes mellitus Performed By: #### B 12, URMACRERAT #### [facility] [address] Creatinine, Urine (Random) 70.0 mg/dL High 11.0-20.0 [facility] Comment on above: Order Comment: Reaso n for Exam Type 2 diabetes mellitus Performed By: #### B 12, URMACRERAT #### [facility] [address] Microalbumin/Creatinine Ratio 12.0 mg/g Normal 0.0-30.0 [facility] Comment on above: Order Comment: Reaso n for Exam Type 2 diabetes mellitus Result Comment: 30-3 00 mg/g indicates an increased risk for diabetic nephropathy. Greater than 300 mg/g is consistent with clinical nephropathy. (Am. J. Kidney Disease 1995, 25:107) PERFORMED BY: [facility] [address] [place] [address] PATHOLOGIST DAYCARE TEACHER LOCO PERRY M.D. Performed By: #### B 12, URMACRERAT #### [facility] [address] [place] [id number] [facility] Microalbumin [Mass/volume] i n UrineOrdered By: Rosanne Dumont on 03-31-2023 Albumin DL <= 20 mg/L (U) [Mass/Vol] 0.9 mg/dL 0.0-1.8 [facility] Monocytes Auto (Bld) [#/Vol] Ordered By: Sherman Larson on 03-31-2023 Monocytes (Bld) [#/Vol] 0.5 10*3/uL 0.0-0.8 [facility] Monocytes/100 WBC Auto (Bld) Ordered By: Sherman Larson on 03-31-2023 Monocytes/100 WBC (Bld) 7.5 % . F [facility] Neutrophils Auto (Bld) [#/Vo l]Ordered By: Sherman Larson on 03-31-2023 Neutrophils (Bld) [#/Vol] 4.6 10*3/uL 1.8-7.7 [facility] Neutrophils/100 WBC Auto (Bl d)Ordered By: Sherman Larson on 03-31-2023 Neutrophils/100 WBC (Bld) 64.3 % . [facility] No Panel InformationOrdered By: Sherman Larson on 03-31-2023 Estimated GFR (CKD-EPI) > 60.0 mL/Min [facility] Creatinine Clearance (Chem N/A [facility] Nucleated erythrocytes [Pres ence] in Blood by Automated countOrdered By: Sherman Larson on 03-31-2023 Nucleated RBC Auto Ql (Bld) 0.1 /100{WBC} 0-0.5 [facility] Platelet mean volume Auto (B ld) [Entitic vol]Ordered By: Sherman Larson on 03-31-2023 Platelet mean volume (Bld) [Entitic vol] 7.4 fL 6.3-10.7 [facility] Platelets Auto (Bld) [#/Vol] Ordered By: Sherman Larson on 03-31-2023 Platelets (Bld) [#/Vol] 298 10*3/uL 150-450 [facility] Potassium [Moles/volume] in Serum or PlasmaOrdered By: Sherman Larson on 03-31-2023 Potassium [Moles/Vol] 4.1 mmol/L 3.5-5.1 [facility] Protein [Mass/volume] in Ser um or PlasmaOrdered By: Sherman Larson on 03-31-2023 Protein [Mass/Vol] 7.2 g/dL 6.4-8.9 [facility] RBC Auto (Bld) [#/Vol]Ordere d By: Sherman Larson on 03-31-2023 RBC (Bld) [#/Vol] 5.19 10*6/uL 3.60-5.00 [facility] Serum or plasma albumin/glob ulin mass ratioOrdered By: Sherman Larson on 03-31-2023 Albumin/Globulin [Mass ratio] 1.3 {ratio} [facility] Serum or plasma anion gap de terminationOrdered By: Sherman Larson on 03-31-2023 Anion gap [Moles/Vol] 12.2 mmol/L 6.0-15.0 [facility] Serum or plasma high density lipoprotein (HDL) cholesterol measurementOrdered By: Sherman Larson on 03-31-2023 Cholesterol in HDL [Mass/Vol] 39 mg/dL 23-92 [facility] Comment on above: HDL CHOL ATP-III CLA SSIFICATION Cardiovascular RiskHDL > or equal to 60 mg/dL LOWHDL < 40 mg/dL HIGH Serum or plasma total choles terol/high density lipoprotein (HDL) cholesterol mass ratOrdered By: Sherman Larson on 03-31-2023 Cholesterol.total/Zahra sterol in HDL [Mass ratio] 3.7 {ratio} <5.0 [facility] Sodium [Moles/volume] in Ser um or PlasmaOrdered By: Sherman Larson on 03-31-2023 Sodium [Moles/Vol] 136 mmol/L 136-145 [facility] Thyroid Stimulating Hormoneo n 03-31-2023 TSH Qn 2.43 m[IU]/L Normal 0.45-5.33 [facility] Comment on above: Order Comment: Reaso n for Exam Hyperlipidemia Result Comment: PERF ORMED BY: [place] [address] PATHOLOGIST DAYCARE TEACHER LOCO PERRY M.D. Performed By: #### T SH3 #### [address] Thyrotropin [Units/volume] i n Serum or PlasmaOrdered By: Sherman Larson on 03-31-2023 TSH Qn 2.43 m[IU]/L 0.45-5.33 [facility] Triglyceride [Mass/volume] i n Serum or PlasmaOrdered By: Sherman Larson on 03-31-2023 Triglyceride [Mass/Vol] 218 mg/dL 0-149 [facility] Comment on above: TRIG ATP III CLASSIF ICATIONTRIG less than 150 mg/dL NormalTRIG 150-199 mg/dL Borderline highTRIG 200-500 mg/dL High TRIG greater than 500 mg/dL Very highStandard traceable to the Center for Disease Conrtrol and Prevention (CDC) test method. Urea nitrogen [Mass/volume] in Serum or PlasmaOrdered By: Sherman Larson on 03-31-2023 Urea nitrogen [Mass/Vol] 19 mg/dL 7-25 [facility] Urine microalbumin/creatinin e mass ratioOrdered By: Rosanne Dumont on 03-31-2023 Albumin/Creatinine DL <= 20 mg/L (U) [Mass ratio] 12.0 mg/g 0.0-30.0 [facility] Comment on above: 30-300 mg/g indicate s an increased risk for diabetic nephropathy. Greater than 300 mg/g is consistent with clinical nephropathy. (Am. J. Kidney Disease 1995, 25:107) Vitamin B12on 03-31-2023 Cobalamin (Vitamin B12) [Mass/Vol] 221 pg/mL Normal 180-914 [facility] Comment on above: Order Comment: Reaso n for Exam Type 2 diabetes mellitus;B12 deficiency Result Comment: PERF ORMED BY: [place] [address] PATHOLOGIST DAYCARE TEACHER LOCO PERRY M.D. Performed By: #### B 12, URMACRERAT #### [address] Vitamin B12 ser/plasOrdered By: Rosanne Dumont on 03-31-2023 Cobalamin (Vitamin B12) [Mass/Vol] 221 pg/mL 180-914 [facility] WBC Auto (Bld) [#/Vol]Ordere d By: Sherman Larson on 03-31-2023 WBC (Bld) [#/Vol] 7.2 10*3/uL 3.8-11.6 [facility] ANES POSTPROC EVALon 023 ANES POSTPROC EVAL HNO ID: [id number] Author: Mavis Acuna MD Service: Anesthesiology Author Type: Anesthesiologist Type: Anesthesia Postprocedure Evaluation Filed: 02/20/2023 11:09 AM Note Text: POST ANESTHESIA EVALUATION NOTE : 1955 Procedure Summary Date: 02/19/23 Room / Location: [facility] Endoscopy - ENDO Anesthesia Start: 1412 Anesthesia Stop: 144 Procedure: EGD - THERAPEUTIC, EUS, OR TUBE [...] Magy Castro DATE: February 19, 2023 TIME: 1509 CSN: [id number] Normal [facility] ANES PRE-OPon 02-19-2023 ANES PRE-OP HNO ID: [id number] Author: Mavis Acuna MD Service: Anesthesiology Author Type: Anesthesiologist Type: Anesthesia Preprocedure Evaluation Filed: 02/19/2023 1:52 PM Note Text: ANESTHESIOLOGY DAY OF SURGERY NOTE : 1955 Procedure Information Date/Time: 02/19/23 1230 Scheduled providers: Lior Linton MD; SIGRID Neal; Mavis Acuna MD Procedure: EGD - THERAPEUTIC, EUS, OR TUBE INTERVENTIONS Location: [facility] Endoscopy - ENDO Estimated body mass index [...] mouth once (more content not included)... Normal [facility] CYTOLOGY NON-GYNon 3 CASE REPORT Normal [facility] Comment on above: Order Comment: Speci men Type: SPECIMEN OBTAINED BY ASPIRATION Ordering Facility: [facility] Address: [address] [place] [address] Result Comment: [facility] Report Case: [id number] Authorizing Provider: Lior Linton MD Collected: 02/19/2023 02:27 PM Ordering Location: [facility] Received: 02/20/2023 07:02 AM Endoscopy - ENDO Pathologist: Mat Montez MD Specimen: PANCREAS FINE NEEDLE ASPIRATION Performed By: #### C JANES #### [facility] CLIA [id number] [address] [facility] [id number] [address] [id number] [place] [facility] CLIA [id number] [address] [place] [address] [place] CLINICAL HISTORY Pancreatic cyst Normal [facility] Comment on above: Order Comment: Speci men Type: SPECIMEN OBTAINED BY ASPIRATION Ordering Facility: [facility] Address: [address] [place] [address] Performed By: #### C YTONON #### [facility] CLIA [id number] [address] LABORATORY CLIA [id number] [address] [place] [address] DIAGNOSIS COMMENT Normal [facility] Comment on above: Order Comment: Speci men Type: SPECIMEN OBTAINED BY ASPIRATION Ordering Facility: [facility] Address: [address] [place] [id number] Result Comment: The specimen is limited in cellularity. Immunohistochemical stain for AE1/AE3 is positive. Synaptophysin, chromogranin and inhibin are negative. The immunohistochemical staining pattern supports the above diagnosis. Selected slides were reviewed in consultation with Dr. Oconnor, who concurs. Laboratory Developed Test (LDT) Disclaimer: Performance characteristics of immunohistochemical, immunofluorescent and chromogenic in-situ hybridization tests have been determined by the performing laboratory within [facility]???[facility] Pathology and Laboratory Medicine [place] ([facility], [facility], [facility], [facility], [facility], or [facility]) in a manner consistent with CLIA requirements. [...] patient's clinical condition. Performed By: #### C YTONON #### [facility] CLIA [id number] [address] [place] [id number] [place] [facility] CLIA [id number] [address] [place] [address] STATES [facility] FINAL DIAGNOSIS [facility] Comment on above: Order Comment: Speci men Type: SPECIMEN OBTAINED BY ASPIRATION Ordering Facility: [facility] Address: [address] [place] [address] Result Comment: A - PANCREAS FINE NEEDLE ASPIRATION Negative for malignant cells. See comment. The following cell blocks were associated with this case: A1 Cell Block, Alcohol Fixed Performed By: #### C YTONON #### [facility] CLIA [id number] [address] LABORATORY CLIA [id number] [address] [place] [address] FINAL PERFORMING LAB Normal [facility] Comment on above: Order Comment: Speci men Type: SPECIMEN OBTAINED BY ASPIRATION Ordering Facility: [facility] Address: [address] [place] [address] Result Comment: Tech nical component, chief ii dispatcher screening performed at [facility], [address] [place] [address] CLIA# [id number] Diagnostic interpretation performed at [facility], [address] [place] [id number] CLIA# [id number] Ethnology Professor: Quintin Sal M.D. Performed By: #### C YTONON #### [facility] CLIA [id number] [address] [place] [address] LABORATORY CLIA [id number] [address] [place] [address] GROSS DESCRIPTION Normal [facility] Comment on above: Order Comment: Speci men Type: SPECIMEN OBTAINED BY ASPIRATION Ordering Facility: [facility] Address: [address] [place] [address] Result Comment: A. P ANCREAS FINE NEEDLE ASPIRATION 30 cc cloudy red CytoLyt with material. ThinPrep and Cell Block prepared. Performed By: #### C YTONON #### [facility] CLIA [id number] [address] [facility] [id number] [address] [id number] [facility] CLIA [id number] [address] [place] EGD - THERAPEUTIC, EUS, OR T UBE INTERVENTIONSon 02-19-2023 [facility] GLUCOSE, BLOOD (POC)on 02-19 Glucose [Mass/Vol] 198 mg/dL Abnormal 74 - 99 mg/dL [facility] Glucose [Mass/Vol] 175 mg/dL Abnormal 74 - 99 mg/dL [facility] NURSING PROGon 02-19-2023 NURSING PROG HNO ID: [id number] Author: Lakhwinder Payan RN Service: Nursing Author [...] (RECOMMENDATION): None Electronically Signed By: Lakhwinder Payan [facility] NURSING PROG HNO ID: [id number] Author: Ekta Banegas RN Service: Nursing Author [...] (RECOMMENDATION): None Electronically Signed By: Ekta Banegas [facility] Upper EUSon 02-19-2023 [place] [facility] Gastrointestinal Endoscopy Patient Name: Magy Castro Procedure Date: 02/19/2023 1:57 PM Date of : 1955 Admit Type: Outpatient Age: 67 Room: [place] [address] Gender: Female Note Status: Finalized Attending MD: [...] age 49. Providers: Lior Linton MD, Bonnie Baird, RN, Alejandra Gates RN (Assisting Nurse) Patient [...] on cytopathology. Procedure Code(s): --- Professional --- 11172, Esophagogastroduodenos copy, flexible, (more content not included)... Normal [facility] A1C HEMOGLOBINon 02-10-2023 HbA1c (Bld) [Mass fraction] 7.3 % EUDOW[facility] Other Glucose - FINGER STICKon Glucose [Mass/Vol] 167 mg/dL EUDOWEB Other HbA1c (Bld) [Mass fraction]o n 02-10-2023 A1C HEMOGLOBIN [facility] [employer] Other CNPAllison [facility] MAGY CASTRO ([id number]) 1955 F Date Time Provider Department 02/04/23 ORVILLE ZAMARRIPA (FIELD REPRESENTATIVE) [facility] During your visit today, we recorded the following information about you: Orville Zamarripa LPN 02/04/2023 11:44 AM Signed Scanned into patients chart Allergies As of Date: 02/04/2023 (No Known Allergies) Date Reviewed: 02/02/2023 Reviewed by: Christophe Shaffer APRN.MOVEMENT ASSEMBLER - Fully Assessed Reason for Visit: Received Outside Medical Records [3267] Cmt: Lab Results Prescriptions as of 02/04/2023 [...] Status:Closed by ORVILLE ZAMARRIPA LPN on 02/04/23 [facility] HISTORY PHYSICALon 3 HISTORY PHYSICAL HNO ID: [id number] Author: Christophe Shaffer APRN.MOVEMENT ASSEMBLER Service: ? Author Type: Nurse Practitioner Type: HANDP Filed: 02/04/2023 5:52 PM Note Text: PREANESTHESIA CONSULT CLINIC TELEHEALTH VISIT Patient has been identified by name and date of : Yes This is a virtual visit using [employer] video visit. It require patient-provider interaction for [...] (will be (more content not included)... Normal [facility] Myesha 01-22-2023 RAHEEM Telephone (PAT) MAGY CASTRO ([id number]) 1955 F Date Time Provider Department 01/22/23 LIOR LINTON During your visit today, we recorded the following information about you: Heidi Parson RN 01/22/2023 12:18 PM Signed MRI images available for review. Heidi Parson RN ----- Message ----- From: Heidi Parson RN Sent: 01/13/2023 10:46 AM EDT To: Heidi Parson RN Spoke with pt. She will obtain MRCP disc from [facility] and send to our office. Heidi Parson RN ----- Message ----- From: Lior Linton MD Sent: 01/12/2023 5:41 PM EDT To: MARCEL Love: Please let me know when the MRCP disc is loaded into psychiatric for my review. Lior Linton MD 02/03/2023 7:25 AM Signed MRCP images were reviewed. The images were downloaded to [facility] and the MRI was done at [facility]. Agree with the findings of the report. [...] Encounter Status:Closed by HEIDI PARSON on 02/03/23 [facility] CNOVon 01-07-2023 CNOV Office Visit (PAT ) MAGY CASTRO ([id number]) 1955 F Date Time Provider Department 01/07/23 [...] alcohol. 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 [...] nursing prot (more content not included)... Normal [facility] HISTORY PHYSICALon HISTORY PHYSICAL HNO ID: [id number] Author: Lior Linton MD Service: ? Author [...] alcohol. 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 [...] Enteric Tub (more content not included)... Normal [facility] A1C HEMOGLOBINon 11-04-2022 HbA1c (Bld) [Mass fraction] 7.9 % EUDOWEB Other Glucose - FINGER STICKon Glucose [Mass/Vol] 212 mg/dL [employer] Other HbA1c (Bld) [Mass fraction]o n 11-04-2022 A1C HEMOGLOBIN [employer] Other CNPAllison 10-30-2022 [facility] Telephone (PAT) MAGY CASTRO ([id number]) 1955 F Date Time Provider Department 10/30/22 LIOR LINTON During your visit today, we recorded the following information about you: Blanca Norton 10/30/2022 11:15 AM Signed Pt saw Dr. Rowland, at [facility] and was given Dr. Linton's name to schedule a ERCP? Dr. Rowland does not do ERCPs Pt stated that Dr. Rowland has sent over pt's medical records?! Pt can be reached at Thanks Heidi Parson RN 10/30/2022 11:19 AM Signed Medardo is supposed to call pt today to schedule in biliary pancreas clinic on 11/19/2022. Heidi Parson RN Romain Secrist Pss 10/30/2022 11:34 AM Signed Spoke with patient and she is scheduled @ 9:[address] Linton for O/V. Thanks Medardo Allergies As of Date: 10/30/2022 (Not on File) Date Reviewed: 09/17/2022 Reviewed by: Юлия Odom APRN.MOVEMENT ASSEMBLER - Fully Assessed Reason for Visit: Orders [...] Encounter Status:Closed by ROMAIN VELA on 10/30/22 [facility] CNOVSPon 09-17-2022 CNOVSP Visit (SP) Office (GYNML) MAGY CASTRO ([id number]) 1955 F Date Time Provider Department 09/17/22 9:45 AM ЮЛИЯ DOOM [facility] During your visit today, we recorded the following information about you: Temperature Pulse Respiration Blood pressure 97.6 degrees 81/minute 14/minute 143/55 Weight 120.2 kg Юлия Odom APRN.MOVEMENT ASSEMBLER 09/17/2022 12:59 PM Signed DATE: 09/17/2022 PROBLEM: [...] present, cervix not involved HNPCC screening negative ER/TX: negative 2. 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 Юлия Odom APRN.VINCE Medical Decision Making: Problems: Low: Stable chronic illness Data: Unique test result(s) reviewed: 1 Risk: Low: Low risk from testing/treatment Medical Decision Making Level: 3 - Low Referring Provider: ЮЛИЯ ODOM [[id number]] Allergies As of Date: 09/17/2022 (Not on File) Date Reviewed: 09/17/2022 Reviewed by: Юлия Odom APRN.MOVEMENT ASSEMBLER - Fully Assessed Reason for Vi (more content not included)... Normal [facility] CREATININE [facility] 09-11-2022 Creatinine [Mass/Vol] 0.59 mg/dL Normal 0.58-0.96 [facility] Comment on above: Order Comment: Speci men Type: BLOOD SPECIMENOrdering Facility: [facility] Address: [address] [place] [address] Performed By: #### C RET1 ####[facility] [id number] [place] [address] ESTIMATED GLOMERULAR FILTRATION RATE 98 mL/min/1.73m??? Normal >=60 [facility] Comment on above: Order Comment: Speci men Type: BLOOD SPECIMENOrdering Facility: [facility] Address: [address] [address] Result Comment: Zoila mated Glomerular Filtration Rate [...] actual GFR. Performed By: #### C RET1 ####[facility] [id number] [place] [address] CT ABD/PEL W IVCONon 022 CT ABD/PEL W IVCON * * *Final Report* * * DATE OF EXAM: Sep 11 2022 10:33AM [facility] 0530 - CT ABD/PEL W [...] chest CT performed will be reported separately. [employer] Roofer (topogram) images: No additional findings. IMPRESSION: 1. [...] any questions regarding this interpretation, please call [phone]. If you are unable to reach us at the number above, please feel free to contact [facility] eRadiology at [phone]. [id number] Normal [facility] CT CHEST W IVCONon 2 CT CHEST W IVCON * * *Final Report* * * DATE OF EXAM: Sep 11 2022 10:33AM [facility] 0539 - CT CHEST W [...] CT scan report for the abdomen findings. [employer] Roofer (topogram) images: No additional findings. IMPRESSION: 1. [...] any questions regarding this interpretation, please call [phone]. If you are unable to reach us at the number above, please feel free to contact [facility] eRadiology at [phone]. [id number] Normal [facility] CNPAllison 08-13-2022 CNPN Telephone (PETSAN) MAGY CASTRO ([id number]) 1955 F Date Time Provider Department 08/13/22 LAVINIA GODFREY During your visit today, we recorded the following information about you: Lavinia Godfrey RN 08/13/2022 10:57 AM Signed Please sign pending Cre order for Magy Castro for upcoming CT with contrast on 09/11/22. Thank you. Lavinia Godfrey RN Allergies As of Date: 08/13/2022 (No Known Allergies) Date Reviewed: 09/19/2021 Reviewed by: Юлия Odom APRN.MOVEMENT ASSEMBLER - Fully Assessed Reason for Visit: Orders [681] Primary Visit Diagnosis:Malignant neoplasm of body of uterus, unspecified site (HCC) [C54.9] Order(s):CREATININE BLD [SQCRET] Order #: [id number] FUTURE Prescriptions as of 08/15/2022 - aspirin, [...] Encounter Status:Closed by ЮЛИЯ ODOM on 08/15/22 Normal [facility] A1C HEMOGLOBINon 07-21-2022 HbA1c (Bld) [Mass fraction] 8.2 % EUDOWEB Other Glucose - FINGER STICKon Glucose [Mass/Vol] 243 mg/dL EUDOW[facility] Other HbA1c (Bld) [Mass fraction]o n 07-21-2022 A1C HEMOGLOBIN [employer] Other A1C HEMOGLOBINon 04-09-2022 HbA1c (Bld) [Mass fraction] 7.1 % EUDOWEB Other Glucose - FINGER STICKon Glucose [Mass/Vol] 253 mg/dL [facility]UDOW[facility] Other HbA1c (Bld) [Mass fraction]o n 04-09-2022 A1C HEMOGLOBIN [employer] Other A1C HEMOGLOBINon 12-18-2021 HbA1c (Bld) [Mass fraction] 7 % EUDOWEB Other Glucose - FINGER STICKon Glucose [Mass/Vol] 200 mg/dL EUDOW[facility] Other HbA1c (Bld) [Mass fraction]o n 12-18-2021 A1C HEMOGLOBIN [employer] Other A1C HEMOGLOBINon 09-10-2021 HbA1c (Bld) [Mass fraction] 7.2 % [facility] Other Glucose - FINGER STICKon Glucose [Mass/Vol] 247 mg/dL [facility] Other HbA1c (Bld) [Mass fraction]o n 09-10-2021 A1C HEMOGLOBIN [employer] Other Vital Signs Date Time Vital Sign Value Performing Clinician Facility 10-19-2023 08:30-0500 Body height 161.29 cm Sherman Larson Other [facility] Other 10-19-2023 08:30-0500 Body mass index (BMI) [Ratio] 45.16 kg/m2 Sherman Larson Other [facility] Other 10-19-2023 08:30-0500 Body weight 117.48 kg Sherman Larson Other [facility] Other 10-19-2023 08:30-0500 Diastolic blood pressure 70 mm[Hg] Sherman Larson Other [facility] Other 10-19-2023 08:30-0500 Respiratory rate 18 /min Sherman Larson Other [facility] Other 10-19-2023 08:30-0500 SaO2% (BldA) [Mass fraction] 98 % Sherman Larson Other [facility] Other 10-19-2023 08:30-0500 Systolic blood pressure 126 mm[Hg] Sherman Larson Other [facility] Other 09-09-2023 09:45-0500 Body height 161.29 cm Tondra Mapus Other [facility] Other 09-09-2023 09:45-0500 Body mass index (BMI) [Ratio] 45.97 kg/m2 Tondra Mapus Other [facility] Other 09-09-2023 09:45-0500 Body weight 119.61 kg Tondra Mapus Other [facility] Other 09-09-2023 09:45-0500 Diastolic blood pressure 75 mm[Hg] Tondra Mapus Other [facility] Other 09-09-2023 09:45-0500 Respiratory rate 18 /min Tondra Mapus Other [employer] Other 09-09-2023 09:45-0500 SaO2% (BldA) [Mass fraction] 97 % Tondra Dumont Other [facility] Other 09-09-2023 09:45-0500 Systolic blood pressure 116 mm[Hg] Tondra Mapus Other [place] [employer] Other 06-29-2023 09:36-0400 Body height 160.02 cm DO Sherman Stephans Work Phone: [facility] 06-29-2023 09:36-0400 Body mass index (BMI) [Ratio] 46 kg/m2 DO Sherman Stephans Work Phone: [facility] 06-29-2023 09:36-0400 Body weight 117.93 kg DO Sherman Stephans Work Phone: [facility] 06-29-2023 09:30-0400 Body temperature 97.6 [degF] DO Sherman Kuns Work Phone: [facility] 06-29-2023 09:30-0400 Diastolic blood pressure 70 mm[Hg] DO Sherman Kuns Work Phone: [facility] 06-29-2023 09:30-0400 Heart rate 92 /min DO Sherman Kuns Work Phone: [facility] 06-29-2023 09:30-0400 Respiratory rate 20 /min DO Sherman Kuns Work Phone: [facility] 06-29-2023 09:30-0400 Systolic blood pressure 145 mm[Hg] DO Sherman Kuns Work Phone: [facility] 04-30-2023 09:07-0400 Body height 162.56 cm DO Sherman Kuns Work Phone: [facility] 04-30-2023 09:07-0400 Body mass index (BMI) [Ratio] 44.6 kg/m2 DO Sherman Kuns Work Phone: [facility] 04-30-2023 09:07-0400 Body weight 117.93 kg DO Sherman Kuns Work Phone: [facility] 04-30-2023 08:58-0400 Body temperature 97.7 [degF] DO Sherman Kuns Work Phone: [facility] 04-30-2023 08:58-0400 Diastolic blood pressure 89 mm[Hg] DO Sherman Kuns Work Phone: [facility] 04-30-2023 08:58-0400 Heart rate 88 /min DO Sherman Kuns Work Phone: [facility] 04-30-2023 08:58-0400 Respiratory rate 18 /min DO Sherman Kuns Work Phone: [facility] 04-30-2023 08:58-0400 Systolic blood pressure 113 mm[Hg] DO Sherman Kuns Work Phone: [facility] 03-30-2023 09:02-0400 Body temperature 97.8 [degF] DO Sherman Kuns Work Phone: [facility] 03-30-2023 09:02-0400 Diastolic blood pressure 79 mm[Hg] DO Sherman Kuns Work Phone: [facility] 03-30-2023 09:02-0400 Heart rate 97 /min DO Sherman Kuns Work Phone: [facility] 03-30-2023 09:02-0400 Respiratory rate 20 /min DO Sherman Kuns Work Phone: [facility] 03-30-2023 09:02-0400 Systolic blood pressure 138 mm[Hg] DO Sherman Kuns Work Phone: [facility] 03-25-2023 14:58-0400 Body height 162.56 cm DO Sherman Larson Work Phone: [facility] 03-25-2023 14:58-0400 Body mass index (BMI) [Ratio] 44.6 kg/m2 DO Sherman Larson Work Phone: [facility] 03-25-2023 14:58-0400 Body weight 117.93 kg DO Sherman Larson Work Phone: [facility] 02-19-2023 15:15-0400 Diastolic blood pressure 58 mm[Hg] Lior Linton MD Work Phone: [facility] 02-19-2023 15:15-0400 Heart rate 85 /min Lior Linton MD Work Phone: [facility] 02-19-2023 15:15-0400 Respiratory rate 16 /min Lior Linton MD Work Phone: [facility] 02-19-2023 15:15-0400 SaO2% (BldA) [Mass fraction] 99 % Lior Linton MD Work Phone: [facility] 02-19-2023 15:15-0400 Systolic blood pressure 132 mm[Hg] Lior Linton MD Work Phone: [facility] 02-19-2023 14:44-0400 Body temperature 96.8 [degF] Lior Linton MD Work Phone: [facility] 02-10-2023 10:15-0400 Body height 161.29 cm Tondra Mapus Other [facility] Other 02-10-2023 10:15-0400 Body mass index (BMI) [Ratio] 46.2 kg/m2 Tondra Mapus Other [facility] Other 02-10-2023 10:15-0400 Body weight 120.2 kg Tondra Mapus Other [facility] Other 02-10-2023 10:15-0400 Diastolic blood pressure 77 mm[Hg] Tondra Mapus Other [facility] Other 02-10-2023 10:15-0400 Respiratory rate 18 /min Tondra Mapus Other [facility] Other 02-10-2023 10:15-0400 SaO2% (BldA) [Mass fraction] 98 % Tondra Mapus Other [facility] Other 02-10-2023 10:15-0400 Systolic blood pressure 138 mm[Hg] Tondra Mapus Other [facility] Other 02-02-2023 08:26-0400 Body height 161.3 cm [facility] 02-02-2023 08:26-0400 Body weight 117.94 kg [facility] 01-07-2023 09:51-0400 Body weight 120.2 kg Lior Linton MD Work Phone: [facility] 01-07-2023 09:51-0400 Diastolic blood pressure 86 mm[Hg] Lior Linton MD Work Phone: [facility] 01-07-2023 09:51-0400 Heart rate 91 /min Lior Linton MD Work Phone: [facility] 01-07-2023 09:51-0400 Systolic blood pressure 156 mm[Hg] Lior Linton MD Work Phone: [facility] 11-04-2022 10:15-0500 Body height 161.29 cm Tondra Mapus Other [facility] Other 11-04-2022 10:15-0500 Body mass index (BMI) [Ratio] 45.84 kg/m2 Tondra Mapus Other [facility] Other 11-04-2022 10:15-0500 Body weight 119.25 kg Tondra Mapus Other [facility] Other 11-04-2022 10:15-0500 Diastolic blood pressure 63 mm[Hg] Tondra Mapus Other [facility] Other 11-04-2022 10:15-0500 Respiratory rate 18 /min Tondra Mapus Other [facility] Other 11-04-2022 10:15-0500 SaO2% (BldA) [Mass fraction] 97 % Tondra Mapus Other [facility] Other 11-04-2022 10:15-0500 Systolic blood pressure 138 mm[Hg] Tondra Mapus Other [facility] Other 09-24-2022 09:45-0500 Body height 161.29 cm Sherman Larson Other [facility] Other 09-24-2022 09:45-0500 Body mass index (BMI) [Ratio] 45.57 kg/m2 Sherman Larson Other [facility] Other 09-24-2022 09:45-0500 Body weight 118.57 kg Sherman Larson Other [facility] Other 09-24-2022 09:45-0500 Diastolic blood pressure 62 mm[Hg] Sherman Larson Other [facility] Other 09-24-2022 09:45-0500 Respiratory rate 16 /min Sherman Larson Other [facility] Other 09-24-2022 09:45-0500 SaO2% (BldA) [Mass fraction] 96 % Sherman Larson Other [facility] Other 09-24-2022 09:45-0500 Systolic blood pressure 124 mm[Hg] Sherman Larson Other [facility] Other 09-17-2022 09:43-0500 Body temperature 97.59 [degF] Юлия Odom APRN.MOVEMENT ASSEMBLER Work Phone: [facility] 09-17-2022 09:43-0500 Body weight 120.2 kg Юлия Odom TRAUMA COORDINATOR.MOVEMENT ASSEMBLER Work Phone: [facility] 09-17-2022 09:43-0500 Diastolic blood pressure 55 mm[Hg] Юлия Odom TRAUMA COORDINATOR.MOVEMENT ASSEMBLER Work Phone: [facility] 09-17-2022 09:43-0500 Heart rate 81 /min Юлия Odom TRAUMA COORDINATOR.MOVEMENT ASSEMBLER Work Phone: [facility] 09-17-2022 09:43-0500 Respiratory rate 14 /min Юлия Odom TRAUMA COORDINATOR.MOVEMENT ASSEMBLER Work Phone: [facility] 09-17-2022 09:43-0500 Systolic blood pressure 143 mm[Hg] Юлия Odom TRAUMA COORDINATOR.MOVEMENT ASSEMBLER Work Phone: [facility] 07-21-2022 10:15-0400 Body height 161.29 cm Rosanne Dumont Other [facility] Other 07-21-2022 10:15-0400 Body mass index (BMI) [Ratio] 46.03 kg/m2 Tondra Mapus Other [facility] Other 07-21-2022 10:15-0400 Body weight 119.75 kg Tondra Mapus Other [facility] Other 07-21-2022 10:15-0400 Diastolic blood pressure 60 mm[Hg] Tondra Mapus Other [facility] Other 07-21-2022 10:15-0400 Respiratory rate 16 /min Tondra Mapus Other [facility] Other 07-21-2022 10:15-0400 SaO2% (BldA) [Mass fraction] 96 % Tondra Mapus Other [facility] Other 07-21-2022 10:15-0400 Systolic blood pressure 141 mm[Hg] Tondra Mapus Other [facility] Other 04-09-2022 10:15-0400 Body height 161.29 cm Tondra Mapus Other [facility] Other 04-09-2022 10:15-0400 Body mass index (BMI) [Ratio] 47.42 kg/m2 Tondra Mapus Other [facility] Other 04-09-2022 10:15-0400 Body weight 123.38 kg Tondra Mapus Other [facility] Other 04-09-2022 10:15-0400 Diastolic blood pressure 65 mm[Hg] Tondra Mapus Other [facility] Other 04-09-2022 10:15-0400 Respiratory rate 16 /min Tondra Mapus Other [facility] Other 04-09-2022 10:15-0400 SaO2% (BldA) [Mass fraction] 97 % Tondra Mapus Other [facility] Other 04-09-2022 10:15-0400 Systolic blood pressure 132 mm[Hg] Tondra Mapus Other [facility] Other 12-18-2021 10:45-0500 Body height 161.29 cm Tondra Mapus Other [facility] Other 12-18-2021 10:45-0500 Body mass index (BMI) [Ratio] 47.6 kg/m2 Tondra Mapus Other [facility] Other 12-18-2021 10:45-0500 Body weight 123.83 kg Tondra Mapus Other [facility] Other 12-18-2021 10:45-0500 Diastolic blood pressure 74 mm[Hg] Tondra Mapus Other [facility] Other 12-18-2021 10:45-0500 Respiratory rate 16 /min Tondra Mapus Other [facility] Other 12-18-2021 10:45-0500 SaO2% (BldA) [Mass fraction] 97 % Tondra Mapus Other [facility] Other 12-18-2021 10:45-0500 Systolic blood pressure 120 mm[Hg] Tondra Mapus Other [facility] Other 09-23-2021 09:30-0500 Body height 161.29 cm Sherman Larson Other [facility] Other 09-23-2021 09:30-0500 Body mass index (BMI) [Ratio] 47.42 kg/m2 Sherman Rothmanfaby Other [facility] Other 09-23-2021 09:30-0500 Body weight 123.38 kg Sherman Larson Other [facility] Other 09-23-2021 09:30-0500 Diastolic blood pressure 60 mm[Hg] Sherman Rothmanfaby Other [facility] Other 09-23-2021 09:30-0500 Respiratory rate 16 /min Shermanleonor Rothmanfaby Other [facility] Other 09-23-2021 09:30-0500 SaO2% (BldA) [Mass fraction] 98 % Sherman Rothmanfaby Other [facility] Other 09-23-2021 09:30-0500 Systolic blood pressure 126 mm[Hg] Sherman Rothmanfaby Other [facility] Other 09-10-2021 11:45-0500 Body height 161.29 cm Tondra Lazarous Other [facility] Other 09-10-2021 11:45-0500 Body mass index (BMI) [Ratio] 47.94 kg/m2 Tondra Mapus Other [facility] Other 09-10-2021 11:45-0500 Body weight 124.74 kg Tondra Mapus Other [facility] Other 09-10-2021 11:45-0500 Diastolic blood pressure 63 mm[Hg] Tondra Mapus Other [facility] Other 09-10-2021 11:45-0500 Respiratory rate 20 /min Tondra Mapus Other [facility] Other 09-10-2021 11:45-0500 SaO2% (BldA) [Mass fraction] 96 % Tondra Mapus Other [facility] Other 09-10-2021 11:45-0500 Systolic blood pressure 121 mm[Hg] Tondra Mapus Other [facility] Other Encounters Encounter Date Encounter Type Care Provider Facility Start: 10-19-2023 End: 10-19-2023 ambulatory Sherman Larson Other [facility] Other Start: 10-19-2023 Office outpatient visit 25 minutes Sherman Larson [facility] Start: 09-15-2023 End: 09-15-2023 ambulatory Judith A Eli Facility:[facility] Start: 09-15-2023 End: 09-15-2023 ambulatory DO Sherman Larson Work Phone: [facility] Work Phone: Start: 09-15-2023 End: 09-15-2023 Departed Referred DO Sherman Larson Work Phone: [facility] [place] Work Phone: Start: 09-09-2023 (DM) Diabetes Tondra Mapus [facility] Start: 09-09-2023 Telephone encounter Tondra Mapus [facility] Start: 09-09-2023 End: 09-09-2023 [facility] [employer] Other Start: 09-09-2023 Registered Recurring DO Sherman Larson Work Phone: [facility] Work Phone: Start: 07-15-2023 End: 07-15-2023 ambulatory Referral Self Facility:[facility] Start: 07-15-2023 End: 07-15-2023 ambulatory DO Sherman Larson Work Phone: [facility] Work Phone: Start: 07-15-2023 End: 07-15-2023 Patient encounter procedure DO Sherman Larson Work Phone: [facility] Work Phone: Start: 06-29-2023 End: 06-30-2023 ambulatory Sherman Larson Facility:[facility] Start: 06-29-2023 End: 06-29-2023 ambulatory DO Sherman Larson Work Phone: [facility] Work Phone: Start: 06-29-2023 End: 06-29-2023 Discharged Recurring DO Sherman Salavdor Work Phone: [facility] Work Phone: Start: 06-29-2023 Registered Recurring DO Sherman Larson Work Phone: [facility] [place] Work Phone: Start: 05-26-2023 Registered Recurring DO Sherman Larson Work Phone: [facility] Work Phone: Start: 04-30-2023 End: 04-30-2023 ambulatory Hien Poole Facility:[facility] Start: 04-30-2023 End: 04-30-2023 ambulatory DO Sherman Larson Work Phone: [facility] Work Phone: Start: 04-30-2023 End: 04-30-2023 Discharged Recurring DO Sherman Larson Work Phone: [facility] Work Phone: Start: 04-05-2023 End: 04-05-2023 ambulatory Sherman Larson Other [facility] Other Start: 04-05-2023 Encounter by ji Larson [facility] [place] Start: 04-02-2023 End: 04-02-2023 ambulatory Tondra Mapus Other [facility] Other Start: 04-02-2023 Telephone encounter Rosanne Dumont [facility] Start: 03-31-2023 End: 03-31-2023 ambulatory Tondra K Mapus Facility:[facility] Start: 03-31-2023 End: 03-31-2023 ambulatory DO Sherman Larson Work Phone: [facility] Work Phone: Start: 03-31-2023 End: 03-31-2023 Patient encounter procedure DO Sherman Larson Work Phone: [facility] [place] Work Phone: Start: 03-30-2023 Registered Recurring DO Sherman Larson Work Phone: [facility] Work Phone: Start: 02-19-2023 ambulatory Ivory Rizo francisco j [facility] Work Phone: [facility] Comment on above: antibiotic prescript ion Start: 02-19-2023 E-mail encounter fro m caregiver Ivory Stuart [facility] Work Phone: [facility] Start: 02-19-2023 End: 02-19-2023 Subsequent hospital visit by physician Lior Linton MD Work Phone: [facility] - ENDO Comment on above: Pancreatic cyst [K86 .2] Start: 02-10-2023 (DM) Diabetes Tondra Tejasus [facility] Start: 02-10-2023 End: 02-10-2023 ambulatory Rosanne Dumont Other [facility] Other Start: 02-10-2023 Registered Recurring DO Sherman Larson Work Phone: [facility] Work Phone: Start: 02-09-2023 ambulatory Lior Linton MD Work Phone: [facility] Endoscopy - ENDO Start: 02-04-2023 Telephone encounter Orville Rocha (Reed Fixer) Hu nt Pre Anesthesia Comment on above: Received Outside [facility] Records (Lab Results) Start: 02-02-2023 End: 02-02-2023 Admission to establishment Pacc Main [facility] Start: 02-02-2023 End: 02-02-2023 ambulatory SHERMAN LARSON Pre Anesthesia Comment on above: Pre-op evaluation (P rimary Dx); Type 2 diabetes mellitus without complication, unspecified whether care home insulin use (HCC); Mixed hyperlipidemia; Endometrial cancer (HCC); Morbid obesity (HCC) Start: 02-02-2023 End: 02-02-2023 Preprocedural examination done Pacc Virtual Pre Anesthesia Start: 01-22-2023 Telephone encounter Lior page MD Work Phone: Gastroenterology Comment on above: Imaging available fo r review Start: 01-07-2023 End: 01-07-2023 ambulatory LIOR LINTON Facility:[facility] Start: 01-07-2023 End: 01-07-2023 Patient encounter procedure Lior Linton MD Work Phone: Gastroenterology Comment on above: Pancreatic cyst (Qian lakhwinder Dx); Family history of pancreatic cancer; History of endometrial cancer Start: 11-19-2022 ambulatory LIOR LINTON Facility:[facility] Start: 11-04-2022 (DM) Diabetes Tondra Dumont [facility] Start: 11-04-2022 End: 11-04-2022 ambulatory Tondra Tim Other [facility] Other Start: 11-02-2022 End: 11-02-2022 ambulatory Heidi Sanchez Other [facility] Other Start: 11-02-2022 Encounter by ji Gordon Keolinette [facility] Start: 10-30-2022 Telephone encounter Lior page MD Work Phone: Gastroenterology Comment on above: Orders Start: 10-14-2022 End: 10-14-2022 ambulatory Tondra Tejasus Other [facility] Other Start: 10-14-2022 Telephone encounter Tondra Tim [facility] Start: 09-24-2022 End: 09-24-2022 ambulatory Sherman Larson Other [facility] Other Start: 09-24-2022 Office outpatient visit 15 minutes Sherman Larson [facility] [place] Start: 09-17-2022 End: 09-17-2022 ambulatory ЮЛИЯ ODOM Facility:[facility] Start: 09-17-2022 End: 09-17-2022 Follow-up encounter Юлия Odom APRN.MOVEMENT ASSEMBLER Work Phone: Gynecology Comment on above: Encounter for follow -up surveillance of endometrial cancer (Primary Dx); Pancreatic cyst; Lung nodules Start: 09-17-2022 End: 09-17-2022 Patient encounter procedure Юлия Odom APRN.MOVEMENT ASSEMBLER Work Phone: [facility] Start: 09-11-2022 End: 09-11-2022 ambulatory ЮЛИЯ ODOM Facility:[facility] Start: 08-13-2022 Telephone encounter Lavinia Godfrey RN R adiology Pet CT Comment on above: Orders Start: 07-21-2022 (DM) Diabetes Tondra Mapus [facility] Start: 07-21-2022 End: 07-21-2022 ambulatory Tondra Mapus Other [facility] Other Start: 06-11-2022 End: 06-11-2022 Patient encounter procedure DO Sherman Larson Work Phone: [facility] Start: 04-09-2022 Registered Recurring DO Sherman Larson Work Phone: [facility] Start: 04-09-2022 (DM) Diabetes Tondra Mapus [facility] Start: 04-09-2022 End: 04-09-2022 ambulatory Tondra Mapus Other [facility] Other Start: 03-25-2022 End: 03-25-2022 ambulatory Sherman Larson Other [facility] Other Start: 03-25-2022 Telephone encounter Sherman Larson [facility] Start: 03-12-2022 End: 03-12-2022 ambulatory Tondra Mapus Other [facility] Other Start: 03-12-2022 Telephone encounter Tondra Mapus [facility] Start: 01-29-2022 End: 01-29-2022 ambulatory Tondra Mapus Other [facility] Other Start: 01-29-2022 Telephone encounter Tondra Mapus [facility] Start: 12-18-2021 (DM) Diabetes Tondra Mapus [facility] Start: 12-18-2021 End: 12-18-2021 ambulatory Tondra Mapus Other [facility] Other Start: 10-18-2021 End: 10-18-2021 ambulatory Sherman Larson Other [facility] Other Start: 10-18-2021 Telephone encounter Sherman Larson [facility] [place] Start: 09-23-2021 End: 09-23-2021 ambulatory Sherman Larson Other [facility] Other Start: 09-23-2021 Office outpatient visit 25 minutes Sherman Larson [facility] Start: 09-10-2021 (DM) Diabetes Tondra Mapus [facility] Start: 09-10-2021 End: 09-10-2021 ambulatory Tondra Tejasus Other [facility] Other Start: 11-04-2018 Preoperative state Rosanne Dawkins s Other [facility] Other Procedures Date Procedure Procedure Detail Performing [...] 06-11-2022 Dual energy X-ray absorptiometry DO Sherman Rothmanfaby Work Phone: Plan of Treatment Date Care Activity Detail Author Start: 09-15-2023 Superficial Wound Culture Superficial Wound Culture [facility] Start: 10-12-2022 ADVANCE DIRECTIVE DISCUSSION ADVANCE DIRECTIVE DISCUSSION [facility] Start: 10-12-2022 DEPRESSION ASSESSMENT DEPRESSION ASS ESSMENT [facility] Start: 09-11-2022 End: 11-11-2022 CREATININE BLD CREATININE BLD Lab Routine Malignant neoplasm of body of uterus, unspecified site (HCC) Expected: 09/11/2022, Expires: 11/11/2022 [facility] Work Phone: Comment on above: Expected: 09/11/2022 , Expires: 11/11/2022 Start: 06-12-2022 Influenza vaccination INFLUENZA (#1) [facility] Start: 10-12-2021 ADVANCE DIRECTIVE DISCUSSION ADVANCE DIRECTIVE DISCUSSION [facility] Start: 10-12-2021 DEPRESSION ASSESSMENT DEPRESSION ASS [facility] Start: 09-02-2021 COVID-19 VACCINE (4 - Booster for Pfizer series) COVID-19 VACCINE (4 - Booster for Pfizer series) [facility] Start: 2018 BONE DENSITY BONE DENSITY [facility] Start: 2003 SHINGRIX VACCINE (1 of 2) SHINGRIX VACCINE (1 of 2) [facility] Start: 05-04-2002 Urine microalbumin profile DTAP,TDAP,TD (1 - Tdap) [facility] Start: 1998 COLOGUARD (FIT-DNA) COLOGUARD (FIT-D NA) [facility] Start: 1998 Colonoscopy COLONOSCOPY [facility] Start: 1998 COLORECTAL CANCER SCREENING COLORECTAL CANCER SCREENING [facility] Start: [address] COLONOGRAPHY [facility] Start: 1998 FECAL OCCULT BLOOD FECAL OCCULT BLOO D [facility] Start: 1998 SIGMOIDOSCOPY SIGMOIDOSCOPY [facility] Start: 1993 Mammography MAMMOGRAM [facility] Start: 1971 ANNUAL PCP TEAM LOOM FIXER HELPER MISHA DISEASE VISIT ANNUAL PCP TEAM CHRONIC DISEASE VISIT [facility] Start: 1971 Hepatitis B surface antibody level LDL CHOLESTEROL [facility] Start: 1971 HEPATITIS C SCREENING HEPATITIS C SC RAÚL [facility] Start: 1963 3 comp foot exam completed DIABETIC FOOT EXAM [facility] Start: 1963 Hepatitis B screening URINE ALBUMIN:CREATININE RATIO [facility] Start: 1963 Hepatitis C antibody , confirmatory test DILATED RETINAL EXAM [facility] Start: 1959 PNEUMOCOCCAL: 65+ (1 - PCV) PNEUMOCOCCAL: 65+ (1 - PCV) [facility] Start: 1958 Hemoglobin A1c/Hemoglobin.total in Blood HBA1C [facility] Bacteria identified in Unspecified specimen by Aerobe culture [facility] CYTOLOGY NON-ART PREPARATOR CYTOLOGY NON-GY N Lab Routine Pancreatic cyst Release Upon Ordering for 1 Occurrences starting 02/19/2023 [facility] Work Phone: Comment on above: Release Upon Orderin g for 1 Occurrences starting 02/19/2023 End: 01-08-2024 EGD - THERAPEUTIC, EUS, OR TUBE INTERVENTIONS EGD - THERAPEUTIC, EUS, OR TUBE INTERVENTIONS Endoscopy Routine Pancreatic cyst 1 Occurrences starting 01/07/2023 until 01/08/2024 [facility] Work Phone: Comment on above: 1 Occurrences starti ng 01/07/2023 until 01/08/2024 [facility] Immunizations Immunization Date Immunization Notes Care Provider Roseanne whelan 02-18-2022 COVID-19 original vaccine, age 12+ yr, monovalent (PFIZER-BIONTECH - JARAMILLO TOP) Ivory Stuart [facility] Work Phone: [facility] 02-18-2022 COVID-19 Vaccine Pfizer - Documentation Purposes Only Sherman Larson Other [facility] Other 07-08-2021 COVID-19 Pfizer Sherman Larson Other [facility] 07-08-2021 influenza, seasonal, injectable Sherman Larson Other [facility] Other 01-03-2021 COVID-19 Pfizer Sherman Larson Other [facility] 12-13-2020 COVID-19 Pfizer Sherman Larson Other [facility] 09-21-2020 zoster vaccine recombinant Sherman Larson Other [facility] Other 06-26-2020 zoster vaccine recombinant Sherman Larson Other [facility] [email or web address] Other 06-20-2019 influenza, seasonal, injectable Tondra Mapus [facility] [facility] [email or web address] Other 07-05-2018 influenza, injectabl e, quadrivalent, preservative free Lavinia Godfrey RN [facility] 06-01-2017 influenza, injectabl e, quadrivalent, preservative free Lavinia Godfrey RN [facility] 08-10-2009 novel [id number], preservative-free, injectable Lavinia Godfrey RN [facility] 05-03-2002 TD(adult) unspecifie d formulation Lavinia Godfrey RN [facility] Payers Date Payer Category Payer Medicare MEDICARE MEDICAR E A AND B [id number] 2018-Present [phone] [address] [address] [place] [address] Medicare [id number] 2018 Unknown [id number] 2018 Unknown [id number] 2018 Medicare [id number] 2018 Self-pay [id number] 2018 Unknown [id number] Unknown [id number] Unknown [id number] Unknown [id number] Unknown [id number] Unknown [id number] Unknown [id number] Unknown [id number] Social History Date Type Detail Facility Unknown if ever smoked [facility] Other Sex Assigned At Sex Assigned At Bir th [facility] Other Start: 07-30-2021 End: 06-29-2023 Tobacco smoking status NHIS Never smoked tobacco (finding) [facility] Start: 1955 Sex Assigned At Female F [facility] Start: 02-12-2018 End: 09-17-2022 Tobacco use and exposure Smokeless tobacco non-user [facility] Start: 04-03-2021 End: 02-02-2023 Alcohol intake Current non-drinker of alcohol (finding) [facility] Start: 09-01-2022 End: 09-11-2022 Exposure to SARS-CoV-2 (event) Not sure [facility] Medical Equipment Procedure Code Equipment Code Equipment Origin al Text Equipment Identifier Dates Arthroplasty, hip, total, anterior approach HEAD BIOLOX CERAMIC 32/-3.5 S FDA Start: 11-16-2018 Arthroplasty, hip, total, anterior approach LINER VIVACIT-E 32MM SIZE FDA Start: 11-16-2018 Arthroplasty, hip, total, anterior approach SCREW BONE 6.5MM X 30MM FDA Start: 11-16-2018 Arthroplasty, hip, total, anterior approach SHELL TM 48MM SIZE FDA Start: 11-16-2018 Arthroplasty, hip, total, anterior approach STEM B/3 09/24 [facility]MORE [facility] FDA Start: 11-16-2018 Arthroplasty, hip, total, anterior approach HEAD BIOLOX CERAMIC 32/-3.5 S FDA Start: 11-16-2018 Arthroplasty, hip, total, anterior approach LINER VIVACIT-E 32MM SIZE GG FDA Start: 11-16-2018 Arthroplasty, hip, total, anterior approach SCREW BONE 6.5MM X 30MM FDA Start: 11-16-2018 Arthroplasty, hip, total, anterior approach SHELL TM 48MM SIZE FDA Start: 11-16-2018 Arthroplasty, hip, total, anterior approach STEM 3 09/24 [facility] FDA Start: 11-16-2018 Arthroplasty, [...] STEM 09/24 [facility] FDA Start: 11-16-2018 Start: 09-14-2013 Clinical Notes 09-10-2021 to 10-19-2023 Note Date & Type Note Facility 10-19-2023 Evaluation note Encounter Date Diagnosis Assessment Notes Oct, Pancreatic cyst (ICD-10 - K86.2) Pancreatic cyst adenoma has been followed by [facility] with benign pathology results. Oct, History of uterine cancer (ICD-10 - Z85.42) The patient follows with [facility] special procedures tech Юлия Odom. Oct, Venous insufficiency (ICD-10 - I87.2) The patient encouraged continuing plan of care as instructed by the [facility] [facility].The patient presents wearing compression wraps and applies Eucerin cream. Oct, Type 2 diabetes mellitus (ICD-10 - E11.9) The patient encourged to continue following with Rosanne Dumont for diabetes management , most recent hgb a1c was 8.3 on 09/09/23. Per patient GLP-1 class of mediations have been discussed but are out of valladares range. Oct, Hyperlipidemia LDL goal <100 (ICD-10 - E78.5) Blood work ordered, patient is taking the above medication twice a week. Pt is to continue with the above medication and continue watching their diet and increase their exercise regimen. Oct, Vitamin D deficiency (ICD-10 - E55.9) Oct, Family history of coagulation disorder (ICD-10 - Z83.2) The patient reports positive factor V results in her sister. Blood work ordered today to evaluate coagulopathies. [facility] Other 11-29-2023 Evaluation note* Encounter Date Diagnosis Assessment Notes Treatment Notes Treatment Clinical Notes Aug, Type 2 diabetes mellitus (ICD-10 - E11.9) Managing type 2 diabetes material was published 1. Uncontrolled, Type 2 diabetes A1C 8.3% 2. Blood glucose levels above target. According to Rawlemon 2 cgm download 08/27/2023- 023 Avg glucose 171. >250-8%, >180-26%, 70-180-66%, <70-0%, [...] High blood pressure material was published Aug, custodial current use of insulin (ICD-10 - Z79.4) Aug, B12 deficiency (ICD-10 - E53.8) Good food sources of vitamin B12 material was published 03/2023 Vit b12 221 Aug, BMI 45.0-49.9, adult (ICD-10 - Z68.42) Setting weight-loss goals material was published 6 pound weight loss from last visit, continue with weight loss efforts Aug, Skin abnormalities (ICD-10 - L98.9) Referral to dermatology [facility] [email or web address] Other 11-29-2023 Evaluation note* Encounter Date Diagnosis Assessment Notes Treatment Notes Treatment Clinical Notes Aug, Skin abnormalities (ICD-10 - L98.9) [facility] [email or web address] Other 09-18-2023 Progress note Author Hien Poole [facility] June 29, 2023 9:41am Note Date/Time June 29, 2023 9:36am [facility] [address] [place] [address] Wound Center Provider Note Signed Patient: Magy Castro MR#: [id number] : 1955 Acct:[id number] Age/Sex: 67 / F Copies to: Sherman Larson,DO Hien Poole, WALTER~ HPI Date of Visit Date of Visit: Date of Service: 06/29/2023 Time of Service: 09:35 Narrative HPI: 06/29/23 Debbie is a 67 year old female presenting to [facility] wound care for a follow up visit for eval and treatment of RLE ulcer that appear d/t venous and lymphedema etiologies. She has been a patient here in the past. Urgo k2 wrap will be used along with topical steroid and she will present here for dressings.We spoke about vascular and she did has been having her venous procedures in [place]. Weight loss and elevation and compression and [...] start?: Early May 2023 Mode of Arrival/ Ward Aide: Personal vehicle Lives with:: Spouse Appetite Description: Within Normal Limits Who helps w/ dressing change?: Wound Care Dept Why Do You Need Help?: Can't Reach Ulcer Smoking Status: Never smoker [facility] Medical History (Updated 06/29/23 @ 09:36 by [...] Signed By: <Electronically signed by WALTER Poole> 06/29/2341 [facility] Work Phone: 1(363) 217-652209-11-2023 Progress note Author Hien Poole [facility] June 22, 2023 1:48pm Note Date/Time June 22, 2023 1:48pm [facility] [address] [place] [address] Wound Center Provider Note Signed Patient: Magy Castro MR#: [id number] : 1955 Acct:[id number] Age/Sex: 67 / F Copies to: Sherman Larson,DO Hien Poole APRN~ HPI Date of Visit Date of Visit: Date of Service: 06/22/2023 Time of Service: 13:44 Subjective Pain Right Lower Leg: Pain Intensity: 0 Wound/Ulcer History When did wound start?: Early May 2023 Mode of Arrival/ Ward Aide: Personal vehicle Lives with:: Spouse Appetite Description: Within Normal Limits Who helps w/ dressing change?: Wound Care Dept Why Do You Need Help?: Can't Reach Ulcer Smoking Status: Never smoker [facility] Medical History (Updated 06/22/23 @ 13:46 by [...] Appearance: Beefy Red, Epithelial Tissue or Bridge, Bliss Corner and Yellow Surrounding Tissue Appearance: Bright Red [...] 18 Dictated By: Hien Poole APRN DD/ 1344 Signed By: <Electronically signed by WALTER Poole> 06/22/23 1348 [facility] Work Phone: 1(268) 630-879207-10-2023 Progress note Author Hien Poole [facility] April 20, 2023 9:12am Note Date/Time April 20, 2023 9:12 am [facility] [address] [place] [address] Wound Center Provider Note Signed Patient: Magy Castro MR#: [id number] : 1955 Acct:[id number] Age/Sex: 67 / F Copies to: Sherman Larson,DO Hien Poole APRN~ HPI Date of Visit Date of Visit: Date of Service: 04/20/2023 Time of Service: 09:10 Narrative HPI: 03/25/23 Debbie is a 67 year old female presenting to [facility] wound care for an initial visit [...] interested in seeing the vascular group in [place] but she wants to wait at this [...] wound start?: July 2022 Mode of Arrival/ Ward Aide: Personal vehicle Lives with:: Spouse Appetite Description: Within Normal Limits Who helps w/ dressing change?: Wound Care Dept Why Do You Need Help?: Can't Reach Ulcer and Limited mobility Smoking Status: Never smoker [facility] Medical History (Updated 04/20/23 @ 09:10 by [...] (and venous) Thickness: Skin Breakdown Bed Appearance: Bliss Corner Percent of Wound Bed Granulated/Red: 100 Percent of Devitalized: 0 Length (cm): 35.0 Width (cm): 40.0 Depth (cm): 0.1 CM Sq: 1400.000 Surrounding Tissue Appearance: Peeling and Dryness Surrounding Tissue Temp: Warm Drainage Amount: None Drainage Description: Serosanguineous Drainage Odor: No Odor Left Lower Leg: Type: Lymphedema (and venous) Thickness: Skin Breakdown Bed Appearance: [place] Percent of Wound Bed Granulated/Red: 100 Percent [...] Signed By: <Electronically signed by WALTER Poole> 04/20/2312 [facility] Work Phone: 1(263) 430-123206-29-2023 Progress note Author Hien Poole [facility] April 09, 2023 10:05am Note Date/Time April 09, 2023 10:0 5am [facility] [address] [place] [address] Wound Center Provider Note Signed Patient: Magy Castro MR#: [id number] : 1955 Acct:[id number] Age/Sex: 67 / F Copies to: Sherman Larson,DO Hien Poole APRN~ HPI Date of Visit Date of Visit: Date of Service: 04/09/2023 Time of Service: 10:00 Narrative HPI: 03/25/23 Debbie is a 67 year old female presenting to [facility] wound care for an initial visit [...] interested in seeing the vascular group in [place] but she wants to wait at this [...] wound start?: July 2022 Mode of Arrival/ Ward Aide: Personal vehicle Lives with:: Spouse Appetite Description: Within Normal Limits Who helps w/ dressing change?: Wound Care Dept Why Do You Need Help?: Can't Reach Ulcer and Limited mobility Smoking Status: Never smoker [facility] Medical History (Updated 04/09/23 @ 10:04 by Hien Poole APRN) Cellulitis Diabetes mellitus, [...] (and venous) Thickness: Skin Breakdown Bed Appearance: Bl[place] Percent of Wound Bed Granulated/Red: 100 Percent of Devitalized: 0 Length (cm): 35.0 Width (cm): 40.0 Depth (cm): 0.1 CM Sq: 1400.000 Surrounding Tissue Appearance: Dryness Surrounding Tissue Temp: Warm Drainage Amount: Small Drainage Description: Serosanguineous Drainage Odor: No Odor Left Lower Leg: Type: Lymphedema (and venous) Thickness: Skin Breakdown Bed Appearance: Beefy Red, Bliss Corner and Yellow Percent of Wound Bed Granulated/Red: [...] <Electronically signed by WALTER Poole> 04/09/23 1005 [facility] Work Phone: 1(285) 685-557406-22-2023 Progress note Author Hien Poole [facility] April 02, 2023 9:18am Note Date/Time April 02, 2023 9:19 am [facility] [address] [place] [address] Wound Center Provider Note Signed Patient: Magy Castro MR#: [id number] : 1955 Acct:[id number] Age/Sex: 67 / F Copies to: DO Hien Taylor APRN~ HPI Date of Visit Date of Visit: Date of Service: 04/02/2023 Time of Service: 09:16 Narrative HPI: 03/25/23 Debbie is a 67 year old female presenting to [facility] wound care for an initial visit [...] interested in seeing the vascular group in [place] but she wants to wait at this [...] wound start?: July 2022 Mode of Arrival/ Ward Aide: Personal vehicle Lives with:: Spouse Appetite Description: Within Normal Limits Who helps w/ dressing change?: Wound Care Dept Why Do You Need Help?: Can't Reach Ulcer and Limited mobility Smoking Status: Never smoker [facility] Medical History (Updated 04/02/23 @ 09:18 by [...] Appearance: Beefy Red, Epithelial Tissue or Bridge, Bliss [place] and Yellow Percent of Wound Bed Granulated/Red: 90 Percent of Devitalized: 10 Length (cm): 35.0 Width (cm): 40.0 Depth (cm): 0.1 CM Sq: 1400.000 Surrounding Tissue Appearance: Hyperpigmented Surrounding Tissue Temp: Warm Drainage Amount: Moderate Drainage Description: Serosanguineous Drainage Odor: No Odor Left Lower Leg: Type: Lymphedema (and venous) Thickness: Skin Breakdown Bed Appearance: Beefy Red, Epithelial Tissue or Bridge, Bliss [place] and Yellow Percent of Wound Bed Granulated/Red: [...] By: <Electronically signed by WALTER Poole> 04/02/23917 [facility] Work Phone: 1(956) 480-385306-14-2023 Progress note Author Hien Poole [facility] March 25, 2023 3:02pm Note Date/Time March 25, 2023 2:58 pm [facility] [address] [place] [address] Wound Center Provider Note Signed Patient: Magy Castro MR#: [id number] : 1955 Acct:[id number] Age/Sex: 67 / F Copies to: Sherman Larson,DO Hien Poole APRN~ HPI Date of Visit Date of Visit: Date of Service: 03/25/2023 Time of Service: 14:52 Narrative HPI: 03/25/23 Debbie is a 67 year old female presenting to [facility] wound care for an initial visit [...] interested in seeing the vascular group in [place] but she wants to wait at this [...] wound start?: July 2022 Mode of Arrival/ Ward Aide: Personal vehicle Lives with:: Spouse Appetite Description: Within Normal Limits Who helps w/ dressing change?: Wound Care Dept Why Do You Need Help?: Can't Reach Ulcer and Limited mobility Smoking Status: Never smoker [facility] Medical History (Updated 03/25/23 @ 14:54 by [...] Appearance: Beefy Red, Epithelial Tissue or Bridge, Bliss [place] and Yellow Percent of Wound Bed Granulated/Red: 90 Percent of Devitalized: 10 Length (cm): 35.0 Width (cm): 40.0 Depth (cm): 0.1 CM Sq: 1400.000 Surrounding Tissue Appearance: Hyperpigmented Surrounding Tissue Temp: Warm Drainage Amount: Moderate Drainage Description: Serosanguineous Drainage Odor: No Odor Left Lower Leg: Type: Lymphedema (and venous) Thickness: Skin Breakdown Bed Appearance: Beefy Red, Epithelial Tissue or Bridge, Bliss Corner and Yellow Percent of Wound Bed Granulated/Red: [...] DD/ 1452 Signed By: <Electronically signed by WALETR Poole> 03/25/23 1502 [facility] Work Phone: [phone]) 736-506905-11-2023 Nurse Note* Lakhwinder Payan RN - 02/19/2023 [...] None REFERRAL (RECOMMENDATION): None documented in this encounterC[facility] History and physical note * Lior Linton [...] mouth once daily. Every other day per 02/15/2023 ALLERGIES No Known Allergies Objective PHYSICAL [...] 2:04 PM Source Note - Christophe Shaffer APRN.MOVEMENT ASSEMBLER - 02/02/2023 8:00 AM EDT Images from the original note were not included. PREANESTHESIA CONSULT CLINIC TELEHEALTH VISIT Patient has been identified by name and date of : Yes This is a virtual visit using [employer] video visit. It require patient-provider interaction for [...] fevers. Neuro: No history of TIA's, stroke, FIELD CROP HARVEST CONTRACTOR tumor, impaired sensorium, hemiplegia, paraplegia or quadraplegia. No neurological symptoms or problems. Respiratory: No history of current cough or dyspnea, or pneumonia in the past 6 weeks. No history of respiratory/pulmonary symptoms or problems. Cardiovascular: Positive for: DVT/PE, HLD, Negative for Recent PA, Angina, Arrhythmia, CAD, Chest Pain, CHF, HTN, PVD, Valvular Heart Disease GI: SEE HPI Negative for GERD, Nausea, Vomiting, Abdominal pain, Hepatitis, Liver disease, Pancreatitis, Colon cancer, Rectal cancer : No history of dysuria, frequency or incontinence,, stones or chronic kidney disease ART PREPARATOR: Negative for abnormal vaginal bleeding, abnormal vaginal [...] device. I spent more than 21-40 minutes [id number] with the patient and over half the time was devoted tocounseling and/or coordination of care. This is a virtual visit. It required patient-provider interaction for the medical decision making as documented above. SIGNATURE: Christophe Shaffer APRN.CNP PATIENT NAME: Magy Castro DATE: February 02, 2023 TIME: 8:45 AM PAGER/CONTACT #: documented in this encounterC[facility]23 Evaluation note* Encounter Date Diagnosis Assessment Notes Treatment Notes Treatment Clinical Notes February, Type 2 diabetes mellitus (ICD-10 - E11.9) Managing type 2 diabetes material was published 1. Uncontrolled, Type 2 diabetes A1C 7.3% 2. Blood glucose levels improved. According to Rawlemon 2 cgm download 01/28/2023-02/10/2023 Avg glucose 160. [...] hyperglycemia, or diabetes medication issues. 6. Prescriptions: [employer] MAIL ORDER/CARLOS PIZANO: None at this time. [...] High blood pressure material was published February, custodial current use of insulin (ICD-10 - Z79.4) February, B12 deficiency (ICD-10 - E53.8) Good food sources of vitamin B12 material was published 03/2022 Vit b12 >1400 February, BMI 45.0-49.9, adult (ICD-10 - Z68.42) Setting weight-loss goals material was published [facility] Other 04-26-2023 Miscellaneous Notes* Telephone Encounter - Orville Zamarripa LPN - 02/04/2023 11:44 AM EDTSummary: External Lab Results Scanned into patients chart documented in this encounterC[facility]04-25-2023 Miscellaneous Notes* Telephone Encounter - Heidi Parson RN - 02/03/2023 1:19 PM EDT Attempted to call pt, no answer. Left detailed voice msg regarding msg below. Instructed to call back with any questions. Heidi Parson RN * Telephone Encounter - Lior Linton MD - 02/03/2023 7:22 AM EDT MRCP images were reviewed. The images were downloaded to [facility] and the MRI was done at [facility]. Agree with the findings of the report. [...] pt. She will obtain MRCP disc from [facility] and send to our office. Heidi Parson RN ----- Message ----- From: Lior Linton MD Sent: 01/12/2023 5:41 PM EDT To: MARCEL Love: Please let me know when the MRCP disc is loaded into psychiatric for my review. documented in this encounterC[facility]04-24-2023 Instructions* Patient Instructions* Christophe VegaWALTER Mata.MOVEMENT ASSEMBLER - 02/02/2023 8:36 AM EDT PATIENT PREOPERATIVE INSTRUCTIONS Lior Linton MD has scheduled you for your procedure at this surgery center: [facility]: [phone] --[address] [address]. Please check in on the1st floor at [...] Procedures: - YOU MUST HAVE A RESPONSIBLE IT APPLICATION ARCHITECT TAKE YOU HOME. A TABLEMAN OR PRECISION CROP MANAGER CANNOT BE MADE A RESPONSIBLE IT APPLICATION ARCHITECT. - We recommend that a responsible person [...] Advance Directive, please fax a copy to [phone] or email to for it to be [...] day. Christophe Shaffer APRN.CNP documented in this encounterCrystal [facility]04-24-2023 History and physical note * Christophe Shaffer APRN.CNP - 02/02/2023 8:00 AM EDT Images from the original note were not included. PREANESTHESIA CONSULT CLINIC TELEHEALTH VISIT Patient has been identified by name and date of : Yes This is a virtual visit using [employer] video visit. It require patient-provider interaction for [...] fevers. Neuro: No history of TIA's, stroke, FIELD CROP HARVEST CONTRACTOR tumor, impaired sensorium, hemiplegia, paraplegia or quadraplegia. No neurological symptoms or problems. Respiratory: No history of current cough or dyspnea, or pneumonia in the past 6 weeks. No history of respiratory/pulmonary symptoms or problems. Cardiovascular: Positive for: DVT/PE, HLD, Negative for Recent PA, Angina, Arrhythmia, CAD, Chest Pain, CHF, HTN, PVD, Valvular Heart Disease GI: SEE HPI Negative for GERD, Nausea, Vomiting, Abdominal pain, Hepatitis, Liver disease, Pancreatitis, Colon cancer, Rectal cancer : No history of dysuria, frequency or incontinence,, stones or chronic kidney disease ART PREPARATOR: Negative for abnormal vaginal bleeding, abnormal vaginal [...] device. I spent more than 21-40 minutes [id number] with the patient and over half the time was devoted tocounseling and/or coordination of care. This is a virtual visit. It required patient-provider interaction for the medical decision making as documented above. SIGNATURE: Christophe Shaffer APRN.CNP PATIENT NAME: Magy Castro DATE: February 02, 2023 TIME: 8:45 AM PAGER/CONTACT #: documented in this encounterC[facility]03-29-2023 History and physical note * Lior Linton [...] alcohol. 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 [...] (primary diagnosis) The MRCP was done at [facility]. I will review the images after they are downloaded to psychiatric. We will schedule the patient for EUS with possible FNA especially with the strong family history ofpancreatic cancer. - EGD - THERAPEUTIC, EUS, OR TUBE INTERVENTIONS 2. Family history of pancreatic cancer - ICD9: V16.0, ICD10: Z80.0 Brother at age 51 from shop mechanic cancer. He was not smoker or alcoholic. 3. History of endometrial cancer - ICD9: V10.42, ICD10: Z85.42 History of endometrial cancer stage II diagnosed 2016 and treated with surgery followed by chemo and radiation. Lior Linton MD, FACP documented in this encounterC[facility]01-24-2023 Evaluation note* Encounter Date Diagnosis Assessment Notes Treatment Notes Treatment Clinical Notes Oct, Type 2 diabetes mellitus (ICD-10 - E11.9) Managing type 2 diabetes material was published 1. Uncontrolled, Type 2 diabetes A1C 7.9% 2. Blood glucose levels improved. According to mirta 2 cgm download 10/22/2022- 3 Avg glucose 173. >250-6%, >180-35%, 70-180-59%, <70-0%, [...] High blood pressure material was published Oct, chief technologist current use of insulin (ICD-10 - Z79.4) Oct, B12 deficiency (ICD-10 - E53.8) Good food sources of vitamin B12 material was published 03/2022 Vit b12 >1400 Oct, BMI 45.0-49.9, adult (ICD-10 - Z68.42) Setting weight-loss goals material was published 2 pound weight loss from last visit, continue with weight loss efforts [facility] Other 01-19-2023 Miscellaneous Notes* Telephone Encounter - Romain Etienne - 10/30/2022 11:33 AM EST Spoke with patient and she is scheduled for @ 9:[address] Linton for O/V. Thanks Medardo * Telephone Encounter - Heidi Parson RN - 10/30/2022 11:18 AM EST Medardo is supposed to call pt today to schedule in biliary pancreas clinic on 11/19/2022. Heidi Parson RN * Telephone Encounter - Blanca Norton - 10/30/2022 11:09 AM EST Pt saw Dr. Rowland, at [facility] and was given Dr. Linton's name to schedule a ERCP?Dr. Rowland does not do ERCPs Pt stated that Dr. Rowland has sent over pt's medical records?! Pt can be reached at Thanks documented in this encounterCrystal [facility] Center12-14-2022 Evaluation note* Encounter Date Diagnosis Assessment Notes [...] a (ICD-10 - C54.1) Pt reports the DUMPER at the cancer center ordered a CT to monitor her carcinoma. She is to continue to follow with her yearly, and we will continue to monitor. Sep, Screening for osteoporosis (ICD-10 - Z13.820) Review [...] year, and we will continue to monitor. 14 Sep, 2022 Hyperlipidemia (ICD-10 - E78.5) Pt is to continue the above medication, and the above blood work was ordered to monitor this. [facility] Other 12-07-2022 NoteHNO ID: [id number] Author: Юлия Odom APRN.MOVEMENT ASSEMBLER Service: ? Author Type: Nurse Practitioner Type: [...] present, cervix not involved HNPCC screening negative ER/TX: negative 2. 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 Юлия Odom APRN.VINCE Medical Decision Making: Problems: Low: Stable chronic illness Data: Unique test result(s) reviewed: 1 Risk: Low: Low risk from testing/treatment Medical Decision Making Level: 3 - [facility]12-07-2022 History of Present illness Narrative* Юлия Odom APRN.VINCE - 09/17/2022 9:40 AM EST DATE: 09/17/2022 [...] present, cervix not involved HNPCC screening negative ER/TX: negative 2. 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 Юлия Odom APRN.CNP Medical Decision Making: Problems: Low: Stable chronic illness Data: Unique test result(s) reviewed: 1 Risk: Low: Low risk from testing/treatment Medical Decision Making Level: 3 - Low [facility]22 NoteHNO ID: [id number] Author: RT Eugenia(R) Service: ? Author Type: [...] BY: RT Eugenia(R) September 11, 2022 10:00 [facility]12-01-2022 NoteHNO ID: [id number] Author: Lavinia Godfrey RN Service: ? Author [...] Final Comment: Account Credited DUPLICATE ORDER MW [id number] 09/13/2021 0.70 0.58 - 0.96 mg/dL [...] Final Comment: Account Credited DUPLICATE ORDER MW [id number] P.O.C.T. RESULTS: POC done: Yes, See Lab Tab September 11, 2022 TREATMENT: No Hydration needed. IV SITE: Ambulatory: A peripheral IV was started in the Left antecubital site with a Angio cath: 20 gauge. IV SITE APPEARANCE: Clean,Dry and Intact SIGNATURE: Lavinia Godfrey RN PATIENT NAME: Magy Castro DATE: September 11, 2022 TIME: 9:59 [facility]11-02-2022 Miscellaneous Notes* Telephone Encounter - Lavinia Godfrey RN - 08/13/2022 10:56 AM EDT Please sign pending Cre order for Magy Castro for upcoming CT with contrast on 09/11/22. Thank you. Lavinia Godfrey RN documented in [facility]10-10-[facility] Evaluation note* Encounter Date Diagnosis Assessment Notes Treatment Notes Treatment Clinical Notes Jul, Type 2 diabetes mellitus (ICD-10 - E11.9) Managing type 2 diabetes material was published 1. Uncontrolled, Type 2 diabetes A1C 8.2% 2. Blood glucose levels above target. According to [employer] 2 cgm download 07/08/2022-07/21/20 22 Avg glucose 201. >250-16%, >180-42%, 70-180-42%, <70-0%, [...] High blood pressure material was published Jul, chief technologist current use of insulin (ICD-10 - Z79.4) Jul, B12 deficiency (ICD-10 - E53.8) Good food sources of vitamin B12 material was published 03/2022 Vit b12 >1400 Jul, BMI 45.0-49.9, adult (ICD-10 - Z68.42) Setting weight-loss goals material was published [employer] Other 06-29-2022 Evaluation note* Encounter Date Diagnosis Assessment Notes Treatment Notes Treatment Clinical Notes Mar, Type 2 diabetes mellitus (ICD-10 - E11.9) Managing type 2 diabetes material was published 1. Uncontrolled, Type 2 diabetes A1C 7.1% 2. Blood glucose levels above target. According to [employer]le[employer] 2 cgm download 03/27/2022- 2 Avg glucose [...] High blood pressure material was published Mar, chief technologist current use of insulin (ICD-10 - Z79.4) Mar, B12 deficiency (ICD-10 - E53.8) Good food sources of vitamin B12 material was published 03/2022 Vit b12 >1400 Mar, BMI 45.0-49.9, adult (ICD-10 - Z68.42) Making healthy choices at restaurants material was published [employer] Other 06-14-2022 Evaluation note* Encounter Date Diagnosis Assessment Notes Treatment Notes Treatment Clinical Notes Mar, Sinus congestion (ICD-10 - R09.81) [facility] Other 04-20-2022 Evaluation note* Encounter Date Diagnosis Assessment Notes Treatment Notes Treatment Clinical Notes Jan, Type 2 diabetes mellitus (ICD-10 - E11.9) [facility] Other 03-09-2022 Evaluation note* Encounter Date Diagnosis Assessment Notes Treatment Notes Treatment Clinical Notes Dec, Type 2 diabetes mellitus (ICD-10 - E11.9) Managing type 2 diabetes material was published 1. Controlled, Type 2 diabetes A1C 7% 2. Blood glucose levels improved. According to mirta 2 cgm download 12/05/2021-12/18/2021 Avg glucose 157. [...] pattern. Reviewed with pt option of downloading NEXAGE kiera to help with carb counting. Pt [...] u100 x1 pen given. Sent fiasp to [employer] 7. Reviewed with pt if right great [...] High blood pressure material was published Dec, custodial current use of insulin (ICD-10 - Z79.4) Dec, B12 deficiency (ICD-10 - E53.8) Good food sources of vitamin B12 material was published 04/2021 Vit b12 211 on supplement Dec, BMI 45.0-49.9, adult (ICD-10 - Z68.42) Making healthy choices at restaurants material was published Dec, Hypoglycemia associated with type 2 diabetes mellitus (ICD-10 - E11.649) Low blood glucose and diabetes material was published [facility] Other 01-07-2022 Evaluation note* Encounter Date Diagnosis Assessment Notes Treatment Notes Treatment Clinical Notes Oct, Cough (ICD-10 - R05.9) [facility] Other 12-13-2021 Evaluation note* Encounter Date Diagnosis [...] Sep, Vitamin D deficiency (ICD-10 - E55.9) [facility] Other 11-30-2021 Evaluation note* Encounter Date Diagnosis Assessment Notes Treatment Notes Treatment Clinical Notes Aug, Type 2 diabetes mellitus (ICD-10 - E11.9) Managing type 2 diabetes material was published 1. Uncontrolled, Type 2 diabetes A1C 7.2% 2. Blood glucose levels improved, above target. According to mirta 2 cgm download 08/28/2021- 021 Avg glucose 147. >250-5%, >180-21%, 70-180-71%, [...] medication issues. 6. Prescriptions: Victoza sent to [employer]. Aug, Dietary counseling and surveillance (ICD-10 - Z71.3) Eat well, exercise well, be well: dietary and fitness guidelines material was published Aug, Hyperlipidemia (ICD-10 - E78.5) Managing your cholesterol material was published 04/2021 ldl 75, trig. 164 on statin. Aug, HTN (hypertension) (ICD-10 - I10) High blood pressure material was published Aug, custodial current use of insulin (ICD-10 - Z79.4) Aug, B12 deficiency (ICD-10 - E53.8) Good food sources of vitamin B12 material was published 04/2021 Vit b12 211 on supplement Aug, BMI 45.0-49.9, adult (ICD-10 - Z68.42) Making healthy choices at restaurants material was published Aug, Hypoglycemia associated with type 2 diabetes mellitus (ICD-10 - E11.649) Low blood glucose and diabetes material was published [employer] Other Evaluation noteNo InformationNort [employer] Other evalujvmqv noteNo assessment information available [facility] Work Phone: Evaluawqus note* Diagnosis Malignant neoplasm of body of uterus, unspecified site (HCC)- Primary [facility] in this encounter [facility]* Diagnosis Encounter for follow-up surveillance of endometrial cancer- Primary Unspecified follow-up examination Pancreatic cyst Cyst and pseudocyst of pancreas Lung nodules Other nonspecific abnormal finding of lung field documented in this encounter [facility]* Diagnosis Pancreatic cyst- Primary Cyst and pseudocyst of pancreas Family history of pancreatic cancer Family history of malignant neoplasm of gastrointestinal tract History of endometrial cancer Personal history of malignant neoplasm of other parts of uterus documented in this encounter [facility]* Diagnosis Pre-op evaluation- Primary Preoperative examination, unspecified Type 2 diabetes mellitus without complication, unspecified whether care home insulin use (HCC) Mixed hyperlipidemia Endometrial cancer (HCC) Malignant neoplasm of corpus uteri, except isthmus Morbid obesity (HCC) Morbid obesity documented in this encounter [facility]* Diagnosis Pancreatic cyst Cyst and pseudocyst of pancreas documented in this encounter [facility]* Diagnosis Onset Date Resolution Status Diabetes chronic Edema chronic 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 Inflammation chronic Lymphedema of both lower extremities chronic Obesity chronic Venous stasis of both lower extremities chronic Venous stasis ulcer of left lower extremity chronic Venous stasis ulcer of right lower extremity chronic [facility] Work Phone: Evaluation note* Diagnosis Onset Date Resolution Status Diabetes chronic Edema chronic 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 Inflammation chronic Lymphedema of both lower extremities chronic Obesity chronic Venous stasis of both lower extremities chronic Candidiasis resolved Cellulitis resolved Venous stasis ulcer of left lower extremity resolved Venous stasis ulcer of right lower extremity resolved [facility] Work Phone: Evaluation note* Diagnosis [...] stasis ulcer of right lower extremity resolved [facility] Work Phone: Evaluation note* Diagnosis Onset Date Resolution Status Diabetes chronic Edema chronic 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 Inflammation chronic Lymphedema of both lower extremities chronic Obesity chronic Venous stasis of both lower extremities chronic Candidiasis resolved Venous stasis ulcer of right lower extremity resolved [facility] Work Phone: History general Narrative - Reported* Type Description Date [...] See Above Hospitalization History Covid 19 10/16/20- [facility] Other Hisptie general Narrative - Reported* Type Description Date Medical History DM 2 Medical History HLP Medical History morbid obesity Medical History Body Mass Index 45.0-49.9, adult Medical History Uterine Cancer Medical History Pulmonary Nodules Medical History Abnormal Mammogram 11/16/15- Dr. Sow Medical History chemo- endrometrial Medical History Pulmonary embolism Medical History CVI w/ulcers left leg Medical History Hip Replacement - right 2018 Medical History 06/08/18 Mammogram Medical History Covid + 10/2021 Surgical History gall bladder Surgical History appendicitis Surgical History TOTAL HYSTERECTOMY, oophorectom y 12/25 Surgical History Tubal Surgical History anal abscess 05/28 Surgical History Ablation left lower leg 06/18/18 Surgical History Right Total Hip Replacement 11-16 Hospitalization History See Above Hospitalization History Covid 19 10/16/20- [facility] Other history general Narrative - Reported* Type Description Date Medical History DM 2 Medical History HLP Medical History morbid obesity Medical History Body Mass Index 45.0-49.9, adult Medical History Uterine Cancer Medical History Pulmonary Nodules Medical History Abnormal Mammogram 11/16/15- Dr. oSw Medical History chemo- endrometrial Medical History Pulmonary embolism Medical History CVI w/ulcers left leg Medical History Hip Replacement - right 2018 Medical History 06/08/18 Mammogram Medical History Covid 10/2021 Medical History 05/2022 DEXA Medical History Cyst on Pancreas 10/2022 Surgical History gall bladder Surgical History appendicitis Surgical History TOTAL HYSTERECTOMY, oophorectom y 12/25 Surgical History Tubal Surgical History anal abscess 05/28 Surgical History Ablation left lower leg 06/18/18 Surgical History Right Total Hip Replacement -5 -19 Hospitalization History See Above Hospitalization History Covid 19 10/16/20- [facility] [email or web address] Other History general Narrative - ReportedNortJefferson [facility] [email or web address] Other Progress note Author Hien Poole [facility] April 30, 2023 9:07am Note Date/Time April 30, 2023 9:07 am [facility] [address] [place] [address] Wound Center Provider Note Signed Patient: Magy Castro MR#: [id number] : 1955 Acct:[id number] Age/Sex: 67 / F Copies to: Sherman Larson,DO Hien Poole, WALTER~ HPI Date of Visit Date of Visit: Date of Service: 04/30/2023 Time of Service: 09:05 Narrative HPI: 03/25/23 Debbie is a 67 year old female presenting to [facility] wound care for an initial visit [...] interested in seeing the vascular group in [place] but she wants to wait at this [...] wound start?: July 2022 Mode of Arrival/ Ward Aide: Personal vehicle Lives with:: Spouse Appetite Description: Within Normal Limits Who helps w/ dressing change?: Wound Care Dept Why Do You Need Help?: Can't Reach Ulcer and Limited mobility Smoking Status: Never smoker [facility] Medical History (Updated 04/30/23 @ 09:07 by [...] tablet (Lipitor) 10 mg PO Q3-4D hyperlipidemia 03/28/18 [History Confirmed 04/20/23] cyanocobalamin (vitamin B-12) 1,000 [...] By: <Electronically signed by WALTER Poole> 04/30/23906 [facility] Work Phone: reason for referral (narrative)* Outpatient Procedure (Routine) - Authorized Specialty Diagnoses / Procedures Referred By Viky t Referred To Contact [facility] Diagnoses Pancreatic cyst Procedures EGD - THERAPEUTIC, EUS, OR TUBE INTERVENTIONS EGD INTRMURAL US NEEDLE ASPIRATE/[place] [address] [place] [address] [address] Referral ID Status Reason Start Date Expiration Date Visits Requested Visits Authorized [id number] Authorized Auto-Generat ed Referral 01/07/2023 01/08/2024 1 1 [facility] for referral (narrative)* Outpatient Procedure (Routine) - Closed Specialty Diagnoses / Procedures Referred By Contcharisma sue Referred To Contact [facility] Diagnoses Pancreatic cyst Procedures EGD - THERAPEUTIC, EUS, OR TUBE INTERVENTIONS EGD INTRMURAL US NEEDLE ASPIRATE/BIOPSY [place]AGS Lior Linton [place] [id number] [place] [address] [address] Referral ID Status Reason Start Date Expiration Date V isits Requested Visits Authorized [id number] Closed Auto-Generate d Referral 01/07/2023 01/08/2024 1 1 [facility] for visit Narrative* Outpatient Procedure (Routine) - Closed Specialty Diagnoses / Procedures Referred By Viky t Referred To Contact [facility] Diagnoses Pancreatic cyst Procedures EGD - THERAPEUTIC, EUS, OR TUBE INTERVENTIONS EGD INTRMURAL US NEEDLE ASPIRATE/[place] [address] [place] [address] [address] Referral ID Status Reason Start Date Expiration Date V isits Requested Visits Authorized [id number] Closed Auto-Generate d Referral 01/07/2023 01/08/2024 1 1 [facility] Chief Complaint and Reason for Visit Chief [...] ulcer of right lower extremity Advance Directives Advance Directive Response Recorded Date/ Time Advance Directives No June 9:19am Advance Directive Response Recorded Date/ Time Advance Directives No June 8:19am Reason for Referral Reason SKIN ABNORMALITIES Diagnosis 1 Skin abnormalities ( L98.9) Referral Organization [facility] Referring Provider First Name Rosanne Referring Provider Last Name Tim Referring Provider Specialty Nurse Pract itioner Referred Organization [facility] Referred Provider Chi Cordero Referred Address ,[place], [place],[address] Referred Provider Specialty Dermatology Referral Priority Routine Specialty Diagnoses / Procedures Referred By Viky sue Referred To Contact Gastroenterology Diagnoses Pancreatic cyst Procedures CONSULT TO GASTROENTEROLOGY OFFICE/OUTPATIENT [facility] MDM 60-74 MINUTES Юлия Odom, TRAUMA COORDINATOR.MOVEMENT ASSEMBLER [address] [place] [address] Referral ID Status Reason Start Date Expiration Date Visits Requested Visits Authorized [id number] Authorized PCP Requested Referral 09/17/2022 09/17/2023 1 1 Summary Purpose Family History No Family History Records Found Additional Source Comments REASON FOR VISIT (unrecogniz ed section and content) 6 month Follow up Reason Comments Orders Reason Comments Established Patient Reason Comments New Patient Evaluation Reason Comments Imaging available for review Reason Comments Received Outside Medical Records Lab Res ults Care Teams (unrecognized sec tion and content) Team Status: Active Member Role Status Dates Sherman Larson , DO Primary Care Provider Active Team Status: Active Member Role Status Dates Sherman Larson , DO Primary Care Provider, Attending Provi regan Active Team Status: Inactive Member Role Status Dates Sherman Larson , DO Primary Care Provider Active LAQUITA Mao Attending Provider Active Team Status: Inactive Member Role Status Dates Sherman Larson , DO Primary Care Provider Active Hien Poole APRN Attending Provider Active Team Status: Inactive Member Role Status Dates Sherman Larson , Primary Care Provider Active Referral Self Attending Provider Active Team Status: Active Member Role Status Dates Sherman Larson , DO Primary Care Provider Active Hien Poole APRN Attending Provider Active Team Status: Inactive Member Role Status Dates Sherman Larson , DO Primary Care Provider, Attending Provi regan Active Rosanne Dumont APRN Other Provider Active Team Status: Inactive Member Role Status Dates Sherman Larson , Primary Care Provider Active Dawn Sow , Referring Provider Active Referral Self Attending Provider Active Team Status: Inactive Member Role Status Dates Sherman Larson , Primary Care Provider, Attending Provi regan Active Cold Roller Relationship Specialty Start Date End Date Sherman Larson, [address] [phone] PCP - General Family Medicine 01/15/16 Cold Roller Relationship Specialty Start Date End Date Sherman Larson [address] [phone] PCP - General Family Medicine 01/15/16 Cold Roller Relationship Specialty Start Date End Date Sherman Larson [address] [phone] PCP - General Family Medicine 01/15/16 Cold Roller Relationship Specialty Start Date End Date Sherman Larson, [address] [phone] PCP - General Family Medicine 01/15/16 Cold Roller Relationship Specialty Start Date End Date Sherman Larson, [address] [phone] PCP - General Family Medicine 01/15/16 Cold Roller Relationship Specialty Start Date End Date Sherman Larson, [address] [phone] PCP - General Family Medicine 01/15/16 Cold Roller Relationship Specialty Start Date End Date Sherman Larson, [address] [phone] PCP - General Family Medicine 01/15/16 Goals [...] or prosecute any alcohol or drug abuse patient.[facility] Center[facility] the event this information is protected by the Federal Confidentiality of Alcohol and Drug Abuse Patient Records regulations: The Federal rules restrict any use of the information to criminally investigate or prosecute any alcohol or drug abuse patient.[facility] Center[facility] the event this information is protected by the Federal Confidentiality of Alcohol and Drug Abuse Patient Records regulations: The Federal rules restrict any use of the information to criminally investigate or prosecute any alcohol or drug abuse patient.[facility] CenterIn the event this information is protected by the Federal Confidentiality of Alcohol and Drug Abuse Patient Records regulations: The Federal rules restrict any use of the information to criminally investigate or prosecute any alcohol or drug abuse patient.[facility] CenterIn the event this information is protected by the Federal Confidentiality of Alcohol and Drug Abuse Patient Records regulations: The Federal rules restrict any use of the information to criminally investigate or prosecute any alcohol or drug abuse patient.[facility] CenterIn the event this information is protected by the Federal Confidentiality of Alcohol and Drug Abuse Patient Records regulations: The Federal rules restrict any use of the information to criminally investigate or prosecute any alcohol or drug abuse patient.[facility] CenterIn the event this information is protected by the Federal Confidentiality of Alcohol and Drug Abuse Patient Records regulations: The Federal rules restrict any use of the information to criminally investigate or prosecute any alcohol or drug abuse patient.[facility] CenterIn the event this information is protected by the Federal Confidentiality of Alcohol and Drug Abuse Patient Records regulations: The Federal rules restrict any use of the information to criminally investigate or prosecute any alcohol or drug abuse patient.[facility] CenterIn the event this information is protected by the Federal Confidentiality of Alcohol and Drug Abuse Patient Records regulations: The Federal rules restrict any use of the information to criminally investigate or prosecute any alcohol or drug abuse patient.[facility] CenterIn the event this information is protected by the Federal Confidentiality of Alcohol and Drug Abuse Patient Records regulations: The Federal rules restrict any use of the information to criminally investigate or prosecute any alcohol or drug abuse patient.[facility] INFORMATION SOURCE (unrecogn ized section and content) DATE CREATED AUTHOR 02/05/2023 [facility] DATE CREATED AUTHOR AUTHOR'S ORGANIZ ATION 02/24/2023 [facility] DATE CREATED AUTHOR AUTHOR'S ORGANIZ ATION 09/24/2023 [facility] FOR RECORDS PERTAINING TO PATIENTS WHO [...] BE BASED ON THE PRIMARY CLINICAL RECORDS. [employer] provides no warranty or guarantee of the accuracy or completeness of information in this document.
== END 2023-10-27 14:29 | disposition home or self-care (01) ==
LOC: VC 14:28
PROVIDERS: PCP Radiology Diagnostic Radiology; Visit Provider Radiology Diagnostic Radiology
DX: I80.02 Phlebitis and thrombophlebitis of superficial vessels of left lower extremity (principal)
CPT/HCPCS: 93971; G0463

== ENCOUNTER 2023-11-10 12:55 | Outpatient (OUT) | payer MEDICARE, OTHER, SELFPAY ==
--- NOTE | 2023-11-10 12:56 | VEIN_ITS ---
[address] [address] Patient Name: OXANA CASTRO MRN: [id number] date: 1955 Sex: F Assigned Patient Location: Current Patient Location: Accession/Order Number: [id number] Exam Date: 11/10/2023 13:03 Report Date: 11/10/2023 14:38 At the request of: COLTON HAMLIN Procedure: VC Endovenous Ablation 1VeinLT EXAMINATION: VC Endovenous Ablation 1Vein LT COMPARISON: INDICATIONS: I83.813 Bilateral painful varicose veins OPERATIVE REPORT: Diagnosis: Superficial venous reflux, incompetent perforating veins Procedure: Endovenous laser ablation of the left rewinder operator helper(s) Procedure: The patient was positioned supine on the table and the leg was prepped and draped to allow for visualization during venous access. A sterile cover was draped over a 16 mhz ultrasound probe. Venous mapping was performed prior to the procedure noting location and size of vessel(s). Rib Stiffener And Heel Dipper vein 1: Left mid medial lower leg. The diameter of the vein ranged from 5 mm's below the muscular fascia to 5 mm's at the entry point. Using a 30 gauge needle the entry site was anesthetized with 1 cc of 1% buffered lidocaine. Access was gained percutaneously, with a 21-gauge needle, into the rewinder operator helper vein under ultrasound guidance. The needle was advanced into the desired position and the pre-measured 400-micron fiber was then inserted into the needle and locked in place. The position of the fiber was imaged with ultrasound guidance. The fiber tip was visualized to be 25 mm from the deep vessel. An anesthetic solution of 5 cc 1% buffered lidocaine was delivered along the course of the vein under ultrasound guidance using a syringe. A final positioning check of the laser fiber tip was performed. The laser was activated by means of a foot-pedal and the fiber and needle were withdrawn together in accordance to the desired joules per treatment area/spot weld. 4 areas/spot welds were performed, and the total number of joules delivered was 213. The total time of energy delivery was 27 seconds. A duplex ultrasound revealed compressibility and flow of the deep system immediately after the procedure. Hemostasis of the access site was achieved and dressed. Rib Stiffener And Heel Dipper vein 2: Left distal medial lower leg. The diameter of the vein ranged from 4 mm's below the muscular fascia to 3 mm's at the entry point. Using a 30 gauge needle the entry site was anesthetized with 1 cc of 1% buffered lidocaine. Access was gained percutaneously, with a 21-gauge needle, into the rewinder operator helper vein under ultrasound guidance. The needle was advanced into the desired position and the pre-measured 400-micron fiber was then inserted into the needle and locked in place. The position of the fiber was imaged with ultrasound guidance. The fiber tip was visualized to be 20 mm from the deep vessel. An anesthetic solution of 5 cc 1% buffered lidocaine was delivered along the course of the vein under ultrasound guidance using a syringe. A final positioning check of the laser fiber tip was performed. The laser was activated by means of a foot-pedal and the fiber and needle were withdrawn together in accordance to the desired joules per treatment area/spot weld. 3 areas/spot welds were performed, and the total number of joules delivered was 131. The total time of energy delivery was 16 seconds. A duplex ultrasound revealed compressibility and flow of the deep system immediately after the procedure. Hemostasis of the access site was achieved and dressed. A 20-30 mm compression stocking over coban was placed on the treated leg. Rib Stiffener And Heel Dipper vein 3: Left lateral distal lower leg adjacent to an ulceration. The diameter of the vein ranged from 4 mm's below the muscular fascia to 3 mm's at the entry point. Using a 30 gauge needle the entry site was anesthetized with 1 cc of 1% buffered lidocaine. Access was gained percutaneously, with a 21-gauge needle, into the rewinder operator helper vein under ultrasound guidance. The needle was advanced into the desired position and the pre-measured 400-micron fiber was then inserted into the needle and locked in place. The position of the fiber was imaged with ultrasound guidance. The fiber tip was visualized to be 35 mm from the deep vessel. An anesthetic solution of 5 cc 1% buffered lidocaine was delivered along the course of the vein under ultrasound guidance using a syringe. A final positioning check of the laser fiber tip was performed. The laser was activated by means of a foot-pedal and the fiber and needle were withdrawn together in accordance to the desired joules per treatment area/spot weld. 4 areas/spot welds were performed, and the total number of joules delivered was 151. The total time of energy delivery was 19 seconds. A duplex ultrasound revealed compressibility and flow of the deep system immediately after the procedure. Hemostasis of the access site was achieved and dressed. Vein 4: Proximal medial left thigh. The diameter of the vein ranged from 6-8 mm. Using a 30 gauge needle the entry site was anesthetized with 1 cc of 1% buffered lidocaine. Access was gained percutaneously, with a 21-gauge needle, into the incompetent vein under ultrasound guidance. The needle was advanced into the desired position and a guidewire inserted. The needle was exchanged for a microcatheter and a 400-micron fiber was then inserted into the catheter with the tip of the fiber extending 2 cm beyond the microcatheter tip. The position of the fiber was imaged with ultrasound guidance. An anesthetic solution of 20 cc 1% buffered lidocaine was delivered along the course of the vein under ultrasound guidance using a syringe. A final positioning check of the laser fiber tip was performed. The laser was activated by means of a foot-pedal and the fiber and needle were withdrawn together in accordance to the desired joules per treatment area/spot weld. The total number of joules delivered was 431. The total time of energy delivery was 58 seconds. A duplex ultrasound revealed compressibility and flow of the deep system immediately after the procedure. Hemostasis of the access site was achieved and dressed. A 20-30 mm compression stocking over coban was placed on the treated leg. Post-Op instructions were given, and a follow-up appointment was made. CONCLUSION: 1. Technically successful endovenous laser ablation of multiple left leg perforating veins Electronically authenticated by: COLTON HAMLIN Date: 11/10/2023 14:38
--- OUTSIDE RECORDS SUMMARY | 2023-11-10 12:58 | XMS_ITS | CCD ---
Author Name Unknown Address [address] [place] [address] Organization [facility] Care Team Providers Care Corrugated Box Machine Operator Name Role Phone Rosanne Dumont Unavailable Sherman Larson Unavailable DO Sherman Larson Primary Care Provider DO Sherman Larson Attending Provider [phone] DO Dawn Sow Referring Provider Self, Referral Attending Provider Unavailable Sherman Larson DO Primary Care Provider Sherman Larson DO Primary Care Provider Heidi Sanchez Unavailable SHERMAN LARSON Primary Care Unavailable OSCAR, KHALED Referring Unavailable OSCAR, KHALED Attending Unavailable SHERMAN LARSON Primary Care Unavailable OSCAR, KHALED Attending Unavailable SHERMAN LARSON Primary Care Unavailable ЮЛИЯ ODOM Referring Unavailabl e SHERMAN LARSON Primary Care Unavailable DO Sherman Larson Primary Care Provider DO Sherman Larson Attending Provider WALTER Poole Attending Provider WALTER Dumont Other Provider WALTER Poole Attending Provider DO Sherman Larson Primary Care Provider [phone] Salvador, DO Whitaker Attending Provider [phone] Self, Referral Attending Provider Unavailable DO Sherman Larson Primary Care Provider WALTER Poole Attending Provider Self, Referral Attending Provider Unavailable DO Sherman Larson Attending Provider Eli, FINANCIAL ANALYST-C Judith A Attending Provider Eli, Judith A Admitting Unavailable Eli, Judith A Attending Unavailable Kuns, Sherman Primary Care Unavailable Copsey, Hien Admitting Unavailable Copsey, Hien Attending Unavailable Kuns, Sherman Primary Care Unavailable Rosanne Dumont Consulting Unavailable Kuns, Sherman Primary Care Unavailable Kunfaby, Sherman Attending Unavailable Kuns, Sherman Admitting Unavailable Kuns, Sherman Primary Care Unavailable Copsey, Hien Admitting Unavailable Copmoses, Hien Attending Unavailable Self, Referral Admitting Unavailable Self, Referral Attending Unavailable Kuns, Sherman Primary Care Unavailable Kuns, Sherman Admitting Unavailable Kuns, Sherman Primary Care Unavailable Kunfaby, Sherman Attending Unavailable MAVIS ACUNA Attending Unavailable LIOR LINTON Referring Unavailable KUNS, SHERMAN P Primary Care Unavailable REYS, SHERMAN P Primary Care Unavailable ЮЛИЯ ODOM Referring Unavailnikolai e ЮЛИЯ ODOM Attending Unavailabl e Medications Current Medications Medication Drug Class(es) Dates [...] mg tablet Discontinued 150 MG PO Daily 1 April 08, 2023 11:00pm April 20, 2023 8:23am administer on day 1 of therapy FreeStyle Precision Joe Test - (19 sources) FreeStyle Precis ion Joe Test - use to double check BG with sensor In Vitro PRN for 90 days Active horse chestnut seed 300 mg oral capsule (5 sources) Start: 03-25-2023 take 300 mg by mouth once daily Horse [place]ter Active 300 MG PO Daily March 24, [...] Drug Class(es) Dates Sig (Normalized) Sig (Original) [id number] 200 actuat albuterol 0.09 mg/actuat metered dose [...] Ampicillin Discontinued 500 MG PO Q6H 56 14 May 30, 2018 11:00pm June 13, 2018 [...] sources) Long-term current use of insulin; Translations: [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 manager (current) use of insulin] Episodic Other aftercare (7 sources) 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 manager (current) use of insulin Onset: 09-10-2021 Resolved: [...] (1 source) Solitary pulmonary nodule Episodic Other lower respiratory disease (1 source) Other nonspecific abnormal finding of lung field; Translations: [Lung nodules] Onset: 11-04-2023 Episodic Other non-traumatic joint disorders (19 sources) [...] Resolved: 03-25-2022 Episodic Pancreatic disorders (not diabetes) (5 sources) Cyst of pancreas; Translations: [Cyst of pancreas] Onset: 02-19-2023 Episodic Pulmonary heart disease (10 sources) Pulmonary embolism; Translations: [Other pulmonary embolism without acute cor pulmonale] Onset: 08-07-2017 08-07-2017 Episodic Unclassified (1 source) Cough R05.9 Onset: 10-18-2021 Resolved: 10-18-2021 Results Test Name Value Interpretation Reference Range Facility [facility] 11-04-2023 [facility] Visit (SP) Office (GYNML) MAGY CASTRO ([id number]) 1955 F Date Time Provider Department 11/04/23 12:45 PM ЮЛИЯ ODOM [facility] During your visit today, we recorded the following information about you: Temperature Pulse Respiration Blood pressure 96.8 degrees 69/minute 15/minute 140/73 Юлия Odom APRN.CHEMISTRY FACULTY MEMBER 11/07/2023 9:54 AM Signed DATE: 11/04/2023 PROBLEM: routine Follow up DIAGNOSIS: stage 1a FIGO 2 endometrial cancer. HPI: is a 68 yo female w PMH of DM II, [...] containing portions of nonobstructed small bowel, increased. EGD EUS 02/19/2023 Impression: - A cystic lesion was seen [...] MRCP in 1 year based on cytopathology. Cytology results 02/19/2023 A - PANCREAS FINE NEEDLE ASPIRATION Negative for malignant cells. See comment. SUBJECTIVE: Magy reports that she feels well. No vaginal bleeding or discharge. No shortness of breath, cough, or chest pain. No abdominal pain, nausea, vomiting, diarrhea, or constipation. No dysuria, gross hematuria, urinary frequency, urinary urgency, or incontinence. Vein ablations in legs Saw GI for pancreatic cyst-will continue to follow annually OBJECTIVE: BP 140/73 Pulse 69 Temp 36 ?C (96.8 ?F) Resp 15 GEN: Comfortable HEENT: normocephalic NECK: no adenopathy CARD: RRR PULM: Clear bilat ABD: Soft, nontender, not distended GROIN: No inguinal adenopathy PELVIC: The external genitalia are normal. vagina normal on speculum exam, Vaginal rust without lesion. Bimanual negative. EXT: LE edema-chronic ASSESSMENT: Magy Castro is a 68 year old female w history stage T1a FIGO 2 endometrial cancer, +LVI, MMR nl Limited staging 12/2015 (Mahdi) HDRB c 04/2016 Chemo x 5 c 06/2016 Pancre (more content not included)... Normal [facility] Superficial Wound Cultureon 09-15-2023 Superficial Wound Culture [...] RESISTANT TO ALL B-LACTAM DRUGS. PERFORMED BY: [place] [id number] [place] [address] PATHOLOGIST TUBE SIZER OPERATOR LOCO PERRY M.D. Normal [facility] Comment on above: Performed By: #### C USUP #### [facility] [address] [place] [address] [facility] A1C HEMOGLOBINon 09-09-2023 HbA1c (Bld) [Mass fraction] 8.3 % [facility] [employer] Other Glucose - FINGER STICKon Glucose [Mass/Vol] 175 mg/dL [facility] [employer] Other HbA1c (Bld) [Mass fraction]o n 09-09-2023 A1C HEMOGLOBIN [facility] [employer] Other MM screening mammo BI w/CADo n 07-15-2023 MM screening mammo BI w/CAD [facility] [place] [address] [place] [id number] Mammography Report Signed Patient: Magy Castro MR#: [id number] : 1955 Acct:[id number] Age/Sex: 67 / F ADM Date: 07/15/23 Loc: [place] Room: Type: [facility] Attending Dr: Referral Self Copies to: [...] Jennifer Yarbrough M.D.07/15/2023 2:50 PM Dictation Location: [facility] Transcribed By: SAL 07/15/23 145 Dictated By: Jennifer Yarbrough MD 07/15/23 144 Signed By: 07/15/23 145 Normal [facility] Alanine aminotransferase [En zymatic activity/volume] in Serum or PlasmaOrdered By: Sherman Larson on 03-31-2023 ALT [Catalytic activity/Vol] 17 U/L 7-52 [facility] Albumin [Mass/volume] in Ser um or Plasma by Bromocresol green (BCG) dye binding methoOrdered By: Sherman Larson on 03-31-2023 Albumin BCG dye [Mass/Vol] 4.1 g/dL 3.5-5.7 [facility] Alkaline phosphatase [Enzyma tic activity/volume] in Serum or PlasmaOrdered By: Sherman Larson on 03-31-2023 ALP [Catalytic activity/Vol] 55 U/L 34-104 [facility] Aspartate aminotransferase [ Enzymatic activity/volume] in Serum or PlasmaOrdered By: Sherman Larson on 03-31-2023 AST [Catalytic activity/Vol] 14 U/L 13-39 [facility] Basophils Auto (Bld) [#/Vol] Ordered By: Sherman Larson on 03-31-2023 Basophils (Bld) [#/Vol] 0.0 10*3/uL 0.0-0.2 [facility] Basophils/100 WBC Auto (Bld) Ordered By: Sherman Larson on 03-31-2023 Basophils/100 WBC (Bld) 0.6 % . [facility] Bilirubin.total [Mass/volume ] in Serum or PlasmaOrdered By: Sherman Larson on 03-31-2023 Bilirubin [Mass/Vol] 0.5 mg/dL 0.3-1.0 [facility] Calcium [Mass/volume] in Ser um or PlasmaOrdered By: Sherman Larson on 03-31-2023 Calcium [Mass/Vol] 9.2 mg/dL 8.6-10.3 [facility] Carbon dioxide, total [Moles /volume] in Serum or PlasmaOrdered By: Sherman Larson on 03-31-2023 CO2 [Moles/Vol] 24.9 mmol/L 21.0-31.0 [facility] Chloride [Moles/volume] in [place] or PlasmaOrdered By: Sherman Larson on 03-31-2023 Chloride [Moles/Vol] 103 mmol/L 98-107 [facility] Cholesterol [Mass/volume] in Serum or PlasmaOrdered By: Sherman Larson on 03-31-2023 Cholesterol [Mass/Vol] 144 mg/dL 140-200 [facility] Comment on above: Chol less than 200 m g/dl low riskChol 201-239 mg/dl borderline riskChol 240 mg/dl and greater high risk Cholesterol in LDL Calc [Mas s/Vol]Ordered By: Sherman Larson on 03-31-2023 Cholesterol in LDL [Mass/Vol] 61 mg/dL 0-100 [facility] Comment on above: LDL ATP III CLASSIFI CATIONLDL less than 100 mg/dL OptimalLDL 100-129 mg/dL Near or above optimalLDL 130-159 mg/dL Borderline highLDL 160-189 mg/dL HighLDL greater than 189 mg/dL Very high Cholesterol in VLDL Calc [Ma ss/Vol]Ordered By: Sherman Larson on 03-31-2023 Cholesterol in VLDL [Mass/Vol] 43 mg/dL [facility] Complete Blood Count Auto Di ffon 03-31-2023 Basophils (Bld) [#/Vol] 0.0 10*3/uL Normal 0.0-0.2 [facility] Comment on above: Order Comment: Reaso n for Exam Hyperlipidemia Result Comment: PERF ORMED BY: [place] [id number] PATHOLOGIST TUBE SIZER OPERATOR LOCO PERRY M.D. Performed By: #### C BC #### [facility] [address] [place] [address] [place] Basophils/100 WBC (Bld) 0.6 % Normal . [facility] Comment on above: Order Comment: Reaso n for Exam Hyperlipidemia Performed By: #### C BC #### [address] Eosinophils (Bld) [#/Vol] 0.1 10*3/uL Normal 0.0-0.45 [facility] Comment on above: Order Comment: Reaso n for Exam Hyperlipidemia Performed By: #### C BC #### [address] Eosinophils/100 WBC (Bld) 2.0 % Normal . [facility] Comment on above: Order Comment: Reaso n for Exam Hyperlipidemia Performed By: #### C BC #### [address] Erythrocyte distribution width (RBC) [Ratio] 17.0 % High 11.9-15.3 [facility] Comment on above: Order Comment: Reaso n for Exam Hyperlipidemia Performed By: #### C BC #### [address] Hematocrit (Bld) [Volume fraction] 43.0 % Normal 34.0-46.4 [facility] Comment on above: Order Comment: Reaso n for Exam Hyperlipidemia Performed By: #### C BC #### [address] Hemoglobin (Bld) [Mass/Vol] 13.9 g/dL Normal 11.8-15.4 [facility] Comment on above: Order Comment: Reaso n for Exam Hyperlipidemia Performed By: #### C BC #### [place] [address] [place] Lymphocytes (Bld) [#/Vol] 1.8 10*3/uL Normal 1.00-4.8 [facility] Comment on above: Order Comment: Reaso n for Exam Hyperlipidemia Performed By: #### C BC #### [place] [address] [place] Lymphocytes/100 WBC (Bld) 25.6 % Normal . [facility] Comment on above: Order Comment: Reaso n for Exam Hyperlipidemia Performed By: #### C BC #### [address] MCH (RBC) [Entitic mass] 26.9 pg Normal 24.7-34.3 [facility] Comment on above: Order Comment: Reaso n for Exam Hyperlipidemia Performed By: #### C BC #### [facility] [address] MCV (RBC) [Entitic vol] 82.9 fL Normal 80-100 [facility] Comment on above: Order Comment: Reaso n for Exam Hyperlipidemia Performed By: #### C BC #### [facility] [address] Mean Corpuscular HGB Conc 32.4 g/dL Normal 32.0-35.0 [facility] Comment on above: Order Comment: Reaso n for Exam Hyperlipidemia Performed By: #### C BC #### [facility] [address] Monocytes (Bld) [#/Vol] 0.5 10*3/uL Normal 0.0-0.8 [facility] Comment on above: Order Comment: Reaso n for Exam Hyperlipidemia Performed By: #### C BC #### [place] [address] [place] Monocytes/100 WBC (Bld) 7.5 % Normal . [facility] Comment on above: Order Comment: Reaso n for Exam Hyperlipidemia Performed By: #### C BC #### [place] [address] [place] Neutrophils (Bld) [#/Vol] 4.6 10*3/uL Normal 1.8-7.7 [facility] Comment on above: Order Comment: Reaso n for Exam Hyperlipidemia Performed By: #### C BC #### [facility] [address] [place] [address] [place] Neutrophils/100 WBC (Bld) 64.3 % Normal . [facility] Comment on above: Order Comment: Reaso n for Exam Hyperlipidemia Performed By: #### C BC #### [facility] [address] [place] [address] [place] NRBC% 0.1 /100{WBC} Normal 0-0.5 [facility] Comment on above: Order Comment: Reaso n for Exam Hyperlipidemia Performed By: #### C BC #### [facility] [address] Platelet mean volume (Bld) [Entitic vol] 7.4 fL Normal 6.3-10.7 [facility] Comment on above: Order Comment: Reaso n for Exam Hyperlipidemia Performed By: #### C BC #### [facility] [address] Platelets (Bld) [#/Vol] 298 10*3/uL Normal 150-450 [facility] Comment on above: Order Comment: Reaso n for Exam Hyperlipidemia Performed By: #### C BC #### [address] RBC (Bld) [#/Vol] 5.19 10*6/uL High 3.60-5.00 [facility] Comment on above: Order Comment: Reaso n for Exam Hyperlipidemia Performed By: #### C BC #### [address] WBC (Bld) [#/Vol] 7.2 10*3/uL Normal 3.8-11.6 [facility] Comment on above: Order Comment: Reaso n for Exam Hyperlipidemia Performed By: #### C BC #### [address] Comprehensive Metabolic Pane riaz 03-31-2023 Albumin [Mass/Vol] 4.1 g/dL Normal 3.5-5.7 [facility] Comment on above: Order Comment: Reaso n for Exam Hyperlipidemia Performed By: #### C MP, LIPID #### [address] Albumin/Globulin [Mass ratio] 1.3 {ratio} Normal [facility] Comment on above: Order Comment: Reaso n for Exam Hyperlipidemia Performed By: #### C MP, LIPID #### [facility] [address] [place] [address] ALP [Catalytic activity/Vol] 55 U/L Normal 34-104 [facility] Comment on above: Order Comment: Reaso n for Exam Hyperlipidemia Performed By: #### C MP, LIPID #### [facility] [address] ALT [Catalytic activity/Vol] 17 U/L Normal 7-52 [facility] Comment on above: Order Comment: Reaso n for Exam Hyperlipidemia Performed By: #### C MP, LIPID #### [facility] [address] [place] [address] Anion gap [Moles/Vol] 12.2 mmol/L Normal 6.0-15.0 [facility] Comment on above: Order Comment: Reaso n for Exam Hyperlipidemia Performed By: #### C MP, LIPID #### [facility] [address] [place] [address] AST [Catalytic activity/Vol] 14 U/L Normal 13-39 [facility] Comment on above: Order Comment: Reaso n for Exam Hyperlipidemia Performed By: #### C MP, LIPID #### [facility] [address] [place] [address] Bilirubin [Mass/Vol] 0.5 mg/dL Normal 0.3-1.0 [facility] Comment on above: Order Comment: Reaso n for Exam Hyperlipidemia Performed By: #### C MP, LIPID #### [facility] [address] [place] [address] Calcium [Mass/Vol] 9.2 mg/dL Normal 8.6-10.3 [facility] Comment on above: Order Comment: Reaso n for Exam Hyperlipidemia Performed By: #### C MP, LIPID #### [facility] [address] [place] [address] [place] Chloride [Moles/Vol] 103 mmol/L Normal 98-107 [facility] Comment on above: Order Comment: Reaso n for Exam Hyperlipidemia Performed By: #### C MP, LIPID #### [facility] [address] [place] [address] CO2 [Moles/Vol] 24.9 mmol/L Normal 21.0-31.0 [facility] Comment on above: Order Comment: Reaso n for Exam Hyperlipidemia Performed By: #### C MP, LIPID #### [facility] [address] Creatinine [Mass/Vol] 0.68 mg/dL Normal 0.60-1.20 [facility] Comment on above: Order Comment: Reaso n for Exam Hyperlipidemia Performed By: #### C MP, LIPID #### [facility] [address] [place] [address] GFR/1.73 sq M.predicted MDRD (S/P/Bld) [Vol rate/Area] mL/min/{1.73_m2} Normal [facility] Comment on above: Order Comment: Reaso n for Exam Hyperlipidemia Performed By: #### C MP, LIPID #### [facility] [address] [place] [address] Globulin (S) [Mass/Vol] 3.1 g/dL Normal [facility] Comment on above: Order Comment: Reaso n for Exam Hyperlipidemia Performed By: #### C MP, LIPID #### [address] Glucose [Mass/Vol] 139 mg/dL High 70-100 [facility] Comment on above: Order Comment: Reaso n for Exam Hyperlipidemia Result Comment: [place] Glucose Reference Range is dependent on time and content of last meal. Glucose of more than 200 mg/dL in a nonstressed, ambulatory subject supports the diagnosis of Diabetes Mellitus. ADA recommended reference range Performed By: #### C MP, LIPID #### [facility] [address] [place] [address] Potassium [Moles/Vol] 4.1 mmol/L Normal 3.5-5.1 [facility] Comment on above: Order Comment: Reaso n for Exam Hyperlipidemia Performed By: #### C MP, LIPID #### [facility] [address] [place] [address] Protein [Mass/Vol] 7.2 g/dL Normal 6.4-8.9 [facility] Comment on above: Order Comment: Reaso n for Exam Hyperlipidemia Performed By: #### C MP, LIPID #### [address] Sodium [Moles/Vol] 136 mmol/L Normal 136-145 [facility] Comment on above: Order Comment: Reaso n for Exam Hyperlipidemia Performed By: #### C MP, LIPID #### [facility] [address] [place] [address] [place] Urea nitrogen [Mass/Vol] 19 mg/dL Normal 7-25 [facility] Comment on above: Order Comment: Reaso n for Exam Hyperlipidemia Performed By: #### C MP, LIPID #### [facility] [address] [place] [address] [place] Creatinine [Mass/volume] in Serum or PlasmaOrdered By: Sherman Larson on 03-31-2023 Creatinine [Mass/Vol] 0.68 mg/dL 0.60-1.20 [facility] Creatinine [Mass/volume] in UrineOrdered By: Rosanne Dumont on 03-31-2023 Creatinine (U) [Mass/Vol] 70.0 mg/dL 11.0-20.0 [facility] Eosinophils Auto (Bld) [#/Vo l]Ordered By: Sherman Larson on 03-31-2023 Eosinophils (Bld) [#/Vol] 0.1 10*3/uL 0.0-0.45 [facility] Eosinophils/100 WBC Auto (Bl d)Ordered By: Sherman Larson on 03-31-2023 Eosinophils/100 WBC (Bld) 2.0 % . [facility] Erythrocyte distribution wid th Auto (RBC) [Ratio]Ordered By: Sherman Larson on 03-31-2023 Erythrocyte distribution width (RBC) [Ratio] 17.0 % 11.9-15.3 [facility] Globulin Calc (S) [Mass/Vol] Ordered By: Sherman Larson on 03-31-2023 Globulin (S) [Mass/Vol] 3.1 g/dL [facility] Glucose [Mass/volume] in Ser um or PlasmaOrdered By: Sherman Larson on 03-31-2023 Glucose [Mass/Vol] 139 mg/dL 70-100 [facility] Comment on above: ADA recommended refe rence rangeRandom Glucose Reference Range is dependent on time and content of last meal. Glucose of more than 200 mg/dL in a nonstressed, ambulatory subject supports the diagnosis of Diabetes Mellitus. Hematocrit Auto (Bld) [Volum e fraction]Ordered By: Sherman Larson on 03-31-2023 Hematocrit (Bld) [Volume fraction] 43.0 % 34.0-46.4 [facility] Hemoglobin [Mass/volume] in BloodOrdered By: Sherman Larson on 03-31-2023 Hemoglobin (Bld) [Mass/Vol] 13.9 g/dL 11.8-15.4 [facility] Leukocytes [#/volume] correc kedar for nucleated erythrocytes in Blood by Automated counOrdered By: Sherman Larson on 03-31-2023 WBC corrected for nucl RBC Auto (Bld) [#/Vol] 7.2 10*3/uL 3.8-11.6 [facility] Lipid Panelon 03-31-2023 Cholesterol [Mass/Vol] 144 mg/dL Normal 140-200 [facility] Comment on above: Order Comment: Reaso n for Exam Hyperlipidemia Result Comment: Chol less than 200 mg/dl low risk Chol 201-239 mg/dl borderline risk Chol 240 mg/dl and greater high risk Performed By: #### C MP, LIPID #### [facility] [address] [place] [address] Cholesterol in HDL [Mass/Vol] 39 mg/dL Normal 23-92 [facility] Comment on above: Order Comment: Reaso n for Exam Hyperlipidemia Result Comment: HDL CHOL ATP-III CLASSIFICATION Cardiovascular Risk HDL > or equal to 60 mg/dL LOW HDL < 40 mg/dL HIGH Performed By: #### C MP, LIPID #### [facility] [address] [place] [address] Cholesterol.total/Zahra sterol in HDL [Mass ratio] 3.7 {ratio} Normal <5.0 [facility] Comment on above: Order Comment: Reaso n for Exam Hyperlipidemia Result Comment: PERF ORMED BY: [place] [id number] PATHOLOGIST TUBE SIZER OPERATOR LOCO PERRY M.D. Performed By: #### C MP, LIPID #### [facility] [address] LDL Cholesterol,Calculated 61 mg/dL Normal 0-100 [facility] Comment on above: Order Comment: Reaso n for Exam Hyperlipidemia Result Comment: LDL ATP III CLASSIFICATION LDL less than 100 mg/dL Optimal LDL 100-129 mg/dL Near or above optimal LDL 130-159 mg/dL Borderline high LDL 160-189 mg/dL High LDL greater than 189 mg/dL Very high Performed By: #### C MP, LIPID #### [facility] [address] Triglyceride w/Reflex 218 mg/dL High 0-149 [facility] Comment on above: Order Comment: Reaso n for Exam Hyperlipidemia Result Comment: TRIG ATP III CLASSIFICATION TRIG less than 150 mg/dL Normal TRIG 150-199 mg/dL Borderline high TRIG 200-500 mg/dL High TRIG greater than 500 mg/dL Very high Standard traceable to the Center for Disease Conrtrol and Prevention (CDC) test method. Performed By: #### C MP, LIPID #### [facility] [address] VLDL CHOLESTEROL 43 mg/dL Normal [facility] Comment on above: Order Comment: Reaso n for Exam Hyperlipidemia Performed By: #### C MP, LIPID #### [facility] [address] Lymphocytes Auto (Bld) [#/Vo l]Ordered By: Sherman Larson on 03-31-2023 Lymphocytes (Bld) [#/Vol] 1.8 10*3/uL 1.00-4.8 [facility] Lymphocytes/100 WBC Auto (Bl d)Ordered By: Sherman Larson on 03-31-2023 Lymphocytes/100 WBC (Bld) 25.6 % . [facility] MCH Auto (RBC) [Entitic mass ]Ordered By: Sherman Larson on 03-31-2023 MCH (RBC) [Entitic mass] 26.9 pg 24.7-34.3 [facility] MCHC Auto (RBC) [Mass/Vol]Or dered By: Sherman Larson on 03-31-2023 MCHC (RBC) [Mass/Vol] 32.4 g/dL 32.0-35.0 [facility] MCV Auto (RBC) [Entitic vol] Ordered By: Sherman Larson on 03-31-2023 MCV (RBC) [Entitic vol] 82.9 fL 80-100 [facility] [employer] Creat Ratio,Uon Albumin DL <= 20 mg/L (U) [Mass/Vol] 0.9 mg/dL Normal 0.0-1.8 [facility] Comment on above: Order Comment: Reaso n for Exam Type 2 diabetes mellitus Performed By: #### B 12, URMACRERAT #### [facility] [address] Creatinine, Urine (Random) 70.0 mg/dL High 11.0-20.0 [facility] Comment on above: Order Comment: Reaso n for Exam Type 2 diabetes mellitus Performed By: #### B 12, URMACRERAT #### [facility] [address] Microalbumin/Creatinine Ratio 12.0 mg/g Normal 0.0-30.0 [facility] Comment on above: Order Comment: Reaso n for Exam Type 2 diabetes mellitus Result Comment: 30-3 00 mg/g indicates an increased risk for diabetic nephropathy. Greater than 300 mg/g is consistent with clinical nephropathy. (Am. J. Kidney Disease 1995, 25:107) PERFORMED BY: [place] [id number] PATHOLOGIST TUBE SIZER OPERATOR LOCO PERRY M.D. Performed By: #### B 12, URMACRERAT #### [facility] [address] [place] [id number] [facility] Microalbumin [Mass/volume] i n UrineOrdered By: Rosanne Dumont on 03-31-2023 Albumin DL <= 20 mg/L (U) [Mass/Vol] 0.9 mg/dL 0.0-1.8 [facility] Monocytes Auto (Bld) [#/Vol] Ordered By: Sherman Larson on 03-31-2023 Monocytes (Bld) [#/Vol] 0.5 10*3/uL 0.0-0.8 [facility] Monocytes/100 WBC Auto (Bld) Ordered By: Sherman Larson on 03-31-2023 Monocytes/100 WBC (Bld) 7.5 % . [facility] Neutrophils Auto (Bld) [#/Vo l]Ordered By: Sherman Larson on 03-31-2023 Neutrophils (Bld) [#/Vol] 4.6 10*3/uL 1.8-7.7 [facility] Neutrophils/100 WBC Auto (Bl d)Ordered By: Sherman Larson on 03-31-2023 Neutrophils/100 WBC (Bld) 64.3 % . [facility] No Panel InformationOrdered By: Sherman Larson on 03-31-2023 Estimated GFR (CKD-EPI) > 60.0 mL/Min [facility] Creatinine Clearance (Chem N/A [facility] Nucleated erythrocytes [Pres ence] in Blood by Automated countOrdered By: Sherman Larson on 03-31-2023 Nucleated RBC Auto Ql (Bld) 0.1 /100{WBC} 0-0.5 [facility] Platelet mean volume Auto (B ld) [Entitic vol]Ordered By: Sherman Larson on 03-31-2023 Platelet mean volume (Bld) [Entitic vol] 7.4 fL 6.3-10.7 [facility] Platelets Auto (Bld) [#/Vol] Ordered By: Sherman Larson on 03-31-2023 Platelets (Bld) [#/Vol] 298 10*3/uL 150-450 [facility] Potassium [Moles/volume] in Serum or PlasmaOrdered By: Sherman Larson on 03-31-2023 Potassium [Moles/Vol] 4.1 mmol/L 3.5-5.1 [facility] Protein [Mass/volume] in Ser um or PlasmaOrdered By: Sherman Larson on 03-31-2023 Protein [Mass/Vol] 7.2 g/dL 6.4-8.9 [facility] RBC Auto (Bld) [#/Vol]Ordere d By: Sherman Larson on 03-31-2023 RBC (Bld) [#/Vol] 5.19 10*6/uL 3.60-5.00 [facility] Serum or plasma albumin/glob ulin mass ratioOrdered By: Sherman Larson on 03-31-2023 Albumin/Globulin [Mass ratio] 1.3 {ratio} [facility] Serum or plasma anion gap de terminationOrdered By: Sherman Larson on 03-31-2023 Anion gap [Moles/Vol] 12.2 mmol/L 6.0-15.0 [facility] Serum or plasma high density lipoprotein (HDL) cholesterol measurementOrdered By: Sherman Larson on 03-31-2023 Cholesterol in HDL [Mass/Vol] 39 mg/dL 23-92 [facility] Comment on above: HDL CHOL ATP-III CLA SSIFICATION Cardiovascular RiskHDL > or equal to 60 mg/dL LOWHDL < 40 mg/dL HIGH Serum or plasma total choles terol/high density lipoprotein (HDL) cholesterol mass ratOrdered By: Sherman Larson on 03-31-2023 Cholesterol.total/Zahra sterol in HDL [Mass ratio] 3.7 {ratio} <5.0 [facility] Sodium [Moles/volume] in Ser um or PlasmaOrdered By: Sherman Larson on 03-31-2023 Sodium [Moles/Vol] 136 mmol/L 136-145 [facility] Thyroid Stimulating Hormoneo n 03-31-2023 TSH Qn 2.43 m[IU]/L Normal 0.45-5.33 [facility] Comment on above: Order Comment: Reaso n for Exam Hyperlipidemia Result Comment: PERF ORMED BY: [place] [address] PATHOLOGIST TUBE SIZER OPERATOR LOCO PERRY M.D. Performed By: #### T SH3 #### [address] Thyrotropin [Units/volume] i n Serum or PlasmaOrdered By: Sherman Larson on 03-31-2023 TSH Qn 2.43 m[IU]/L 0.45-5.33 [facility] Triglyceride [Mass/volume] i n Serum or PlasmaOrdered By: Sherman Larson on 03-31-2023 Triglyceride [Mass/Vol] 218 mg/dL 0-149 [facility] Comment on above: TRIG ATP III CLASSIF ICATIONTRIG less than 150 mg/dL NormalTRIG 150-199 mg/dL Borderline highTRIG 200-500 mg/dL High TRIG greater than 500 mg/dL Very highStandard traceable to the Center for Disease Conrtrol and Prevention (CDC) test method. Urea nitrogen [Mass/volume] in Serum or PlasmaOrdered By: Sherman Lrason on 03-31-2023 Urea nitrogen [Mass/Vol] 19 mg/dL 05-05 [facility] Urine microalbumin/creatinin e mass ratioOrdered By: Rosanne Dumont on 03-31-2023 Albumin/Creatinine DL <= 20 mg/L (U) [Mass ratio] 12.0 mg/g 0.0-30.0 [facility] Comment on above: 30-300 mg/g indicate s an increased risk for diabetic nephropathy. Greater than 300 mg/g is consistent with clinical nephropathy. (Am. J. Kidney Disease 1995, 25:107) Vitamin B12on 03-31-2023 Cobalamin (Vitamin B12) [Mass/Vol] 221 pg/mL Normal 180-914 [facility] Comment on above: Order Comment: Reaso n for Exam Type 2 diabetes mellitus;B12 deficiency Result Comment: PERF ORMED BY: [place] [address] PATHOLOGIST TUBE SIZER OPERATOR LOCO PERRY M.D. Performed By: #### B 12, URMACRERAT #### [address] Vitamin B12 ser/plasOrdered By: Rosanne Dumont on 03-31-2023 Cobalamin (Vitamin B12) [Mass/Vol] 221 pg/mL 180-914 [facility] WBC Auto (Bld) [#/Vol]Ordere d By: Sherman Larson on 03-31-2023 WBC (Bld) [#/Vol] 7.2 10*3/uL 3.8-11.6 [facility] ANES POSTPROC EVALon 023 ANES POSTPROC EVAL HNO ID: [id number] Author: Mavis Acuna MD Service: Anesthesiology Author Type: Anesthesiologist Type: Anesthesia Postprocedure Evaluation Filed: 02/20/2023 11:09 AM Note Text: POST ANESTHESIA EVALUATION NOTE : 1955 Procedure Summary Date: 02/19/23 Room / Location: [facility] Endoscopy - ENDO Anesthesia Start: 1412 [...] DATE: February 19, 2023 TIME: 1510 CSN: [id number] Normal [facility] ANES PRE-OPon 02-19-2023 ANES PRE-OP HNO ID: [id number] Author: Mavis Acuna MD Service: Anesthesiology Author Type: Anesthesiologist Type: Anesthesia Preprocedure Evaluation Filed: 02/19/2023 1:52 PM Note Text: ANESTHESIOLOGY DAY OF SURGERY NOTE : 1955 Procedure Information Date/Time: 02/19/23 1230 Scheduled providers: Lior Linton MD; SIGRID Neal; Mavis Acuna MD Procedure: EGD - THERAPEUTIC, EUS, OR TUBE INTERVENTIONS Location: [facility] Endoscopy - ENDO Estimated body mass [...] and consent discussed: yes. Patient / Responsible Republican agrees to proceed: yes Patient / Surrogate [...] mouth once (more content not included)... Normal [facility] CYTOLOGY NON-GYNon 3 CASE REPORT Normal [facility] Comment on above: Order Comment: Speci men Type: SPECIMEN OBTAINED BY ASPIRATION Ordering Facility: [facility] Address: [address] [place] [address] Result Comment: [facility] Cytology Report Case: [id number] Authorizing Provider: Lior Linton MD Collected: 02/19/2023 02:27 PM Ordering Location: [facility] Received: 02/20/2023 07:02 AM Endoscopy - ENDO Pathologist: Mat Montez MD Specimen: PANCREAS FINE NEEDLE ASPIRATION Performed By: #### C YTONON #### [facility] CLIA [id number] [facility] [address] LABORATORY CLIA [id number] [address] [place] [address] CLINICAL HISTORY Pancreatic cyst Normal [facility] Comment on above: Order Comment: Speci men Type: SPECIMEN OBTAINED BY ASPIRATION Ordering Facility: [facility] Address: [address] [place] [address] Performed By: #### C YTONON #### [facility] CLIA [id number] [facility] [address] LABORATORY CLIA [id number] [address] [place] [address] DIAGNOSIS COMMENT Normal [facility] Comment on above: Order Comment: Speci men Type: SPECIMEN OBTAINED BY ASPIRATION Ordering Facility: [facility] Address: [address] [place] [address] Result Comment: The specimen is limited in cellularity. Immunohistochemical stain for AE1/AE3 is positive. Synaptophysin, chromogranin and inhibin are negative. The immunohistochemical staining pattern supports the above diagnosis. Selected slides were reviewed in consultation with Dr. Oconnor, who concurs. Laboratory Developed Test (LDT) Disclaimer: Performance characteristics of immunohistochemical, immunofluorescent and chromogenic in-situ hybridization tests have been determined by the performing laboratory within [facility]???s Brad Mehta [facility] Pathology and Laboratory Medicine [facility] ([facility], [facility], [facility], [facility], [facility], or [facility]) in a manner consistent with CLIA requirements. [...] condition. Performed By: #### C YTONON #### [facility] CLIA [id number] [address] [place] [address] LABORATORY CLIA [id number] [address] [place] [address] FINAL DIAGNOSIS [facility] Comment on above: Order Comment: Speci men Type: SPECIMEN OBTAINED BY ASPIRATION Ordering Facility: [facility] Address: [address] [address] Result Comment: A - PANCREAS FINE NEEDLE ASPIRATION Negative for malignant cells. See comment. The following cell blocks were associated with this case: A1 Cell Block, Alcohol Fixed Performed By: #### C YTONON #### [facility] CLIA [id number] [address] [place] [address] LABORATORY CLIA [id number] [address] [place] [address] FINAL PERFORMING LAB Normal [facility] Comment on above: Order Comment: Speci men Type: SPECIMEN OBTAINED BY ASPIRATION Ordering Facility: [facility] Address: [address] [address] Result Comment: Tech nical component, administrative underwriter screening performed at [facility], [address] [place] [address] CLIA# [id number] Diagnostic interpretation performed at [facility], [address] [place] [address] CLIA# [id number] Gravel Truck Driver: Quintin Sal M.D. Performed By: #### C YTONON #### [facility] CLIA [id number] LABORATORY CLIA [id number] [address] [place] [address] GROSS DESCRIPTION Normal [facility] Comment on above: Order Comment: Speci men Type: SPECIMEN OBTAINED BY ASPIRATION Ordering Facility: [facility] Address: [address] [place] [address] Result Comment: Rhea PANCHAL FINE NEEDLE ASPIRATION 30 cc cloudy red CytoLyt with material. ThinPrep and Cell Block prepared. Performed By: #### C YTONON #### [facility] CLIA [id number] [facility] [address] LABORATORY CLIA [id number] [address] [place] [address] OF [facility] EGD - THERAPEUTIC, EUS, OR T UBE INTERVENTIONSon 02-19-2023 [facility] GLUCOSE, BLOOD (POC)on 02-19 Glucose [Mass/Vol] 198 mg/dL Abnormal 74 - 99 mg/dL [facility] Glucose [Mass/Vol] 175 mg/dL Abnormal 74 - 99 mg/dL [facility] NURSING PROGon 02-19-2023 NURSING PROG HNO ID: [id number] Author: Lakhwinder Payan RN Service: Nursing Author [...] (RECOMMENDATION): None Electronically Signed By: Lakhwinder Payan [facility] NURSING PROG HNO ID: [id number] Author: Ekta Banegas RN Service: Nursing Author [...] (RECOMMENDATION): None Electronically Signed By: Ekta Banegas [facility] [place] 02-19-2023 [place] [facility] Gastrointestinal Endoscopy Patient Name: Magy Castro Procedure Date: 02/19/2023 1:57 PM Date of : 1955 Admit Type: Outpatient Age: 67 Room: [place] [address] Gender: Female Note Status: Finalized Attending MD: [...] on cytopathology. Procedure Code(s): --- Professional --- 21753, Esophagogastroduodenos copy, flexible, (more content not included)... Normal [facility] A1C HEMOGLOBINon 02-10-2023 HbA1c (Bld) [Mass fraction] 7.3 % [employer] Other Glucose - FINGER STICKon Glucose [Mass/Vol] 167 mg/dL [employer] Other HbA1c (Bld) [Mass fraction]o n 02-10-2023 A1C HEMOGLOBIN [facility] [employer] Other [facility] 02-04-2023 [facility] ([facility]) MAGY CASTRO ([id number]) 1955 F Date Time Provider Department 02/04/23 ORVILLE ZAMARRIPA (SAMARIA) [facility] During your visit today, we recorded the following information about you: Orville Zamarripa LPN 02/04/2023 11:44 AM Signed Scanned into patients chart Allergies As of Date: 02/04/2023 (No Known Allergies) Date Reviewed: 02/02/2023 Reviewed by: Christophe Shaffer APRN.CHEMISTRY FACULTY MEMBER - Fully Assessed Reason for Visit: Received Outside Medical Records [3576] Cmt: Lab Results Prescriptions as of 02/04/2023 [...] Status:Closed by ORVILLE ZAMARRIPA LPN on 02/04/23 Normal [facility] HISTORY PHYSICALon 3 HISTORY PHYSICAL HNO ID: [id number] Author: Christophe Shaffer APRN.CHEMISTRY FACULTY MEMBER Service: ? Author Type: Nurse Practitioner Type: HANDP Filed: 02/04/2023 5:52 PM Note Text: PREANESTHESIA CONSULT CLINIC TELEHEALTH VISIT Patient has been identified by name and date of : Yes This is a virtual visit using [employer] video visit. It require patient-provider interaction for [...] (will be (more content not included)... Normal [facility] Myesha 01-22-2023 RAHEEM Telephone ([place]) MAGY CASTRO ([id number]) 1955 F Date Time Provider Department 01/22/23 [...] when the MRCP disc is loaded into [facility] for my review. Lior Linton MD 02/03/2023 7:25 AM Signed MRCP images were reviewed. The images were downloaded to [facility] and the MRI was done at [facility]. Agree with the findings of the report. [...] by HEIDI PARSON on 02/03/[address] [facility] CNOVon 01-07-2023 CNOV Office Visit (PAT ) MAGY CASTRO ([id number]) 1955 F Date Time Provider Department 01/07/23 [...] alcohol. 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 Her brother age 51 from pancreatic [...] nursing prot (more content not included)... Normal [facility] HISTORY PHYSICALon HISTORY PHYSICAL HNO ID: [id number] Author: Lior Linton MD Service: ? Author [...] alcohol. 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 Her brother age 51 from pancreatic [...] Enteric Tub (more content not included)... Normal [facility] A1C HEMOGLOBINon 11-04-2022 HbA1c (Bld) [Mass fraction] 7.9 % [employer] Other Glucose - FINGER STICKon Glucose [Mass/Vol] 212 mg/dL [facility] [employer] Other HbA1c (Bld) [Mass fraction]o n 11-04-2022 A1C HEMOGLOBIN [facility] [employer] Other Myesha 10-30-2022 RAHEEM Telephone (GAST[place]) MAGY CASTRO ([id number]) 1955 F Date Time Provider Department 10/30/22 LIOR LINTON During your visit today, we recorded the following information about you: Blanca Norton 10/30/2022 11:15 AM Signed Pt saw Dr. Rowland, at [facility] and was given Dr. Linton's name [...] Date Reviewed: 09/17/2022 Reviewed by: Юлия Odom APRN.[facility] - Fully Assessed Reason for Visit: Orders [851] Prescriptions as of 10/30/2022 - aspirin, enteric [...] Encounter Status:Closed by ROMAIN VELA on 10/30/22 Normal [facility] CREATININE [facility] 09-11-2022 Creatinine [Mass/Vol] 0.59 mg/dL Normal 0.58-0.96 [facility] Comment on above: Order Comment: Speci men Type: BLOOD SPECIMENOrdering Facility: [facility] Address: [address] [address] Performed By: #### C RET1 ####[facility] [id number] [place] [address] ESTIMATED GLOMERULAR FILTRATION RATE 98 mL/min/1.73m??? Normal >=60 [facility] Comment on above: Order Comment: Speci men Type: BLOOD SPECIMENOrdering Facility: [facility] Address: [address] [place] [address] Result Comment: Zoila mated Glomerular Filtration Rate [...] actual GFR. Performed By: #### C RET1 ####[facility] [id number] [place] [address] CT ABD/PEL W IVCONon 12-01-[address] ABD/PEL W IVCON * * *Final Report* * * DATE OF EXAM: Sep 11 2022 10:33AM [facility] 0530 - CT ABD/PEL W [...] chest CT performed will be reported separately. Diagnostic Assistant (topogram) images: No additional findings. IMPRESSION: [...] any questions regarding this interpretation, please call [phone]. If you are unable to reach us at the number above, please feel free to contact [facility] at [phone]. [id number] Normal [facility] CT CHEST W IVCONon 2 CT CHEST W IVCON * * *Final Report* * * DATE OF EXAM: Sep 11 2022 10:33AM [facility] 0539 - CT CHEST W [...] CT scan report for the abdomen findings. Diagnostic Assistant (topogram) images: No additional findings. IMPRESSION: [...] any questions regarding this interpretation, please call [phone]. If you are unable to reach us at the number above, please feel free to contact [facility] at [phone]. [id number] Normal [facility] CNPAllison 08-13-2022 CNPN Telephone (PETSAN) MAGY CASTRO ([id number]) 1955 F Date Time Provider Department 08/13/22 LAVINIA GODFREY During your visit today, we recorded the following information about you: Lavinia Godfrey RN 08/13/2022 10:57 AM Signed Please sign pending Cre order for Magy Castro for upcoming CT with contrast on 09/11/22. Thank you. Lavinia Godfrey RN Allergies As of Date: 08/13/2022 (No Known Allergies) Date Reviewed: 09/19/2021 Reviewed by: Юлия Odom APRN.CHEMISTRY FACULTY MEMBER - Fully Assessed Reason for Visit: Orders [681] Primary Visit Diagnosis:Malignant neoplasm of body of uterus, unspecified site (HCC) [C54.9] Order(s):CREATININE BLD [SQCRET] Order #: [id number] FUTURE Prescriptions as of 08/15/2022 - aspirin, [...] Status:Closed by ЮЛИЯ ODOM on 08/15/22 Normal [facility] A1C HEMOGLOBINon 07-21-2022 HbA1c (Bld) [Mass fraction] 8.2 % [employer] Other Glucose - FINGER STICKon Glucose [Mass/Vol] 243 mg/dL [employer] Other HbA1c (Bld) [Mass fraction]o n 07-21-2022 A1C HEMOGLOBIN [facility] Other A1C HEMOGLOBINon 04-09-2022 HbA1c (Bld) [Mass fraction] 7.1 % [employer] Other Glucose - FINGER STICKon Glucose [Mass/Vol] 253 mg/dL [employer] Other HbA1c (Bld) [Mass fraction]o n 04-09-2022 A1C HEMOGLOBIN [facility] Other A1C HEMOGLOBINon 12-18-2021 HbA1c (Bld) [Mass fraction] 7 % [employer] Other Glucose - FINGER STICKon Glucose [Mass/Vol] 200 mg/dL [employer] Other HbA1c (Bld) [Mass fraction]o n 12-18-2021 A1C HEMOGLOBIN [facility] Other A1C HEMOGLOBINon 09-10-2021 HbA1c (Bld) [Mass fraction] 7.2 % [employer] Other Glucose - FINGER STICKon Glucose [Mass/Vol] 247 mg/dL [employer] Other HbA1c (Bld) [Mass fraction]o n 09-10-2021 A1C HEMOGLOBIN [facility] Other Vital Signs Date Time Vital Sign Value Performing Clinician Facility 10-19-2023 08:30-0500 Body height 161.29 cm Sherman Larson Other [employer] Other 10-19-2023 08:30-0500 Body mass index (BMI) [Ratio] 45.16 kg/m2 Sherman Larson Other [employer] Other 10-19-2023 08:30-0500 Body weight 117.48 kg Sherman Larson Other [employer] Other 10-19-2023 08:30-0500 Diastolic blood pressure 70 mm[Hg] Sherman Larson Other [employer] Other 10-19-2023 08:30-0500 Respiratory rate 18 /min Sherman Larson Other [employer] Other 10-19-2023 08:30-0500 SaO2% (BldA) [Mass fraction] 98 % Sherman Larson Other [employer] Other 10-19-2023 08:30-0500 Systolic blood pressure 126 mm[Hg] Sherman Larson Other [employer] Other 09-09-2023 09:45-0500 Body height 161.29 cm Tondra Mapus Other [employer] Other 09-09-2023 09:45-0500 Body mass index (BMI) [Ratio] 45.97 kg/m2 Tondra Mapus Other [employer] Other 09-09-2023 09:45-0500 Body weight 119.61 kg Tondra Mapus Other [employer] Other 09-09-2023 09:45-0500 Diastolic blood pressure 75 mm[Hg] Tondra Mapus Other [employer] Other 09-09-2023 09:45-0500 Respiratory rate 18 /min Tondra Mapus Other [employer] Other 09-09-2023 09:45-0500 SaO2% (BldA) [Mass fraction] 97 % Tondra Dumont Other [facility] [employer] Other 09-09-2023 09:45-0500 Systolic blood pressure 116 mm[Hg] Tona Tejasus Other [facility] [employer] Other 06-29-2023 09:36-0400 Body height 160.02 cm DO Sherman Larson Work Phone: [facility] 06-29-2023 09:36-0400 Body mass index (BMI) [Ratio] 46 kg/m2 DO Sherman Rothmans Work Phone: [facility] 06-29-2023 09:36-0400 Body weight 117.93 kg DO Sherman Larson Work Phone: [facility] 06-29-2023 09:30-0400 Body temperature 97.6 [degF] DO Sherman Larson Work Phone: [facility] 06-29-2023 09:30-0400 Diastolic blood pressure 70 mm[Hg] DO Shermanleonor Rothmans Work Phone: [facility] 06-29-2023 09:30-0400 Heart rate 92 /min DO Sherman Rothmans Work Phone: [facility] 06-29-2023 09:30-0400 Respiratory rate 20 /min DO Sherman Rothmans Work Phone: [facility] 06-29-2023 09:30-0400 Systolic blood pressure 145 mm[Hg] DO Sherman Reys Work Phone: [facility] 04-30-2023 09:07-0400 Body height 162.56 cm DO Shermanleonor Rothmans Work Phone: [facility] 04-30-2023 09:07-0400 Body mass index (BMI) [Ratio] 44.6 kg/m2 DO Sherman Kuns Work Phone: [facility] 04-30-2023 09:07-0400 Body weight 117.93 kg DO Sherman Kuns Work Phone: [facility] 04-30-2023 08:58-0400 Body temperature 97.7 [degF] DO Sherman Kuns Work Phone: [facility] 04-30-2023 08:58-0400 Diastolic blood pressure 89 mm[Hg] DO Sherman Kuns Work Phone: [facility] 04-30-2023 08:58-0400 Heart rate 88 /min DO Sherman Kuns Work Phone: [facility] 04-30-2023 08:58-0400 Respiratory rate 18 /min DO Sherman Kuns Work Phone: [facility] 04-30-2023 08:58-0400 Systolic blood pressure 113 mm[Hg] DO Sherman Kuns Work Phone: [facility] 03-30-2023 09:02-0400 Body temperature 97.8 [degF] DO Sherman Kuns Work Phone: [facility] 03-30-2023 09:02-0400 Diastolic blood pressure 79 mm[Hg] DO Sherman Kuns Work Phone: [facility] [place] 03-30-2023 09:02-0400 Heart rate 97 /min DO Sherman Kuns Work Phone: [facility] [place] 03-30-2023 09:02-0400 Respiratory rate 20 /min DO Sherman Kuns Work Phone: [facility] [place] 03-30-2023 09:02-0400 Systolic blood pressure 138 mm[Hg] DO Sherman Kuns Work Phone: [facility] [place] 03-25-2023 14:58-0400 Body height 162.56 cm DO Sherman Kuns Work Phone: [facility] [place] 03-25-2023 14:58-0400 Body mass index (BMI) [Ratio] 44.6 kg/m2 DO Sherman Larson Work Phone: [facility] [place] 03-25-2023 14:58-0400 Body weight 117.93 kg DO Sherman Larson Work Phone: [facility] [place] 02-19-2023 15:15-0400 Diastolic blood pressure 58 mm[Hg] Lior Linton MD Work Phone: [facility] 02-19-2023 15:15-0400 Heart rate 85 /min Lior Linton MD Work Phone: [facility] 02-19-2023 15:15-0400 Respiratory rate 16 /min Lior Linton MD Work Phone: [facility] 02-19-2023 15:15-0400 SaO2% (BldA) [Mass fraction] 99 % Lior Lintno MD Work Phone: [facility] 02-19-2023 15:15-0400 Systolic blood pressure 132 mm[Hg] Lior Linton MD Work Phone: [facility] 02-19-2023 14:44-0400 Body temperature 96.8 [degF] Lior Linton MD Work Phone: [facility] 02-10-2023 10:15-0400 Body height 161.29 cm Marceloa Tejasus Other [employer] Other 02-10-2023 10:15-0400 Body mass index (BMI) [Ratio] 46.2 kg/m2 Tondra Mapus Other [employer] Other 02-10-2023 10:15-0400 Body weight 120.2 kg Tondra Mapus Other [facility] [employer] [facility] Other 02-10-2023 10:15-0400 Diastolic blood pressure 77 mm[Hg] Tondra Mapus Other [facility] [employer] Other 02-10-2023 10:15-0400 Respiratory rate 18 /min Tondra Mapus Other [employer] Other 02-10-2023 10:15-0400 SaO2% (BldA) [Mass fraction] 98 % Tondra Mapus Other [facility] [employer] Other 02-10-2023 10:15-0400 Systolic blood pressure 138 mm[Hg] Tondra Mapus Other [employer] Other 02-02-2023 08:26-0400 Body height 161.3 cm [facility] 02-02-2023 08:26-0400 Body weight 117.94 kg [facility] 01-07-2023 09:51-0400 Body weight 120.2 kg Lior Linton MD Work Phone: [facility] 01-07-2023 09:51-0400 Diastolic blood pressure 86 mm[Hg] Lior Linton MD Work Phone: [facility] 01-07-2023 09:51-0400 Heart rate 91 /min Lior Linton MD Work Phone: [facility] 01-07-2023 09:51-0400 Systolic blood pressure 156 mm[Hg] Lior Linton MD Work Phone: [facility] 11-04-2022 10:15-0500 Body height 161.29 cm Tondra Mapus Other [employer] Other 11-04-2022 10:15-0500 Body mass index (BMI) [Ratio] 45.84 kg/m2 Tondra Mapus Other [employer] Other 11-04-2022 10:15-0500 Body weight 119.25 kg Tondra Mapus Other [employer] Other 11-04-2022 10:15-0500 Diastolic blood pressure 63 mm[Hg] Tondra Mapus Other [facility] [employer] [facility] Other 11-04-2022 10:15-0500 Respiratory rate 18 /min Tondra Mapus Other [facility] [employer] [facility] Other 11-04-2022 10:15-0500 SaO2% (BldA) [Mass fraction] 97 % Tondra Mapus Other [facility] [employer] [facility] Other 11-04-2022 10:15-0500 Systolic blood pressure 138 mm[Hg] Tondra Mapus Other [facility] [employer] [facility] Other 09-24-2022 09:45-0500 Body height 161.29 cm Sherman Larson Other [employer] Other 09-24-2022 09:45-0500 Body mass index (BMI) [Ratio] 45.57 kg/m2 Sherman Larson Other [facility] [employer] [facility] Other 09-24-2022 09:45-0500 Body weight 118.57 kg Sherman Larson Other [facility] Other 09-24-2022 09:45-0500 Diastolic blood pressure 62 mm[Hg] Sherman Larson Other [facility] [employer] [facility] Other 09-24-2022 09:45-0500 Respiratory rate 16 /min Sherman Larson Other [facility] [employer] [facility] Other 09-24-2022 09:45-0500 SaO2% (BldA) [Mass fraction] 96 % Sherman Larson Other [facility] [employer] [facility] Other 09-24-2022 09:45-0500 Systolic blood pressure 124 mm[Hg] Sherman Larson Other [facility] [employer] [facility] Other 09-17-2022 09:43-0500 Body temperature 97.59 [degF] Юлия Odom MOLD DRESSER.CHEMISTRY FACULTY MEMBER Work Phone: [facility] 09-17-2022 09:43-0500 Body weight 120.2 kg Юлия Odom MOLD DRESSER.CHEMISTRY FACULTY MEMBER Work Phone: [facility] 09-17-2022 09:43-0500 Diastolic blood pressure 55 mm[Hg] Юлия Odom MOLD DRESSER.CHEMISTRY FACULTY MEMBER Work Phone: [facility] 09-17-2022 09:43-0500 Heart rate 81 /min Юлия Odom MOLD DRESSER.CHEMISTRY FACULTY MEMBER Work Phone: [facility] 09-17-2022 09:43-0500 Respiratory rate 14 /min Юлия Odom MOLD DRESSER.CHEMISTRY FACULTY MEMBER Work Phone: [facility] 09-17-2022 09:43-0500 Systolic blood pressure 143 mm[Hg] Юлия Odom MOLD DRESSER.CHEMISTRY FACULTY MEMBER Work Phone: [facility] 07-21-2022 10:15-0400 Body height 161.29 cm Rosanne Dumont Other [facility] [employer] [facility] Other 07-21-2022 10:15-0400 Body mass index (BMI) [Ratio] 46.03 kg/m2 Tondra Lazarous Other [facility] [employer] [facility] Other 07-21-2022 10:15-0400 Body weight 119.75 kg Tondra Mapus Other [facility] [employer] [facility] Other 07-21-2022 10:15-0400 Diastolic blood pressure 60 mm[Hg] Tondra Mapus Other [facility] Other 07-21-2022 10:15-0400 Respiratory rate 16 /min Tondra Mapus Other [facility] Other 07-21-2022 10:15-0400 SaO2% (BldA) [Mass fraction] 96 % Tondra Mapus Other [facility] Other 07-21-2022 10:15-0400 Systolic blood pressure 141 mm[Hg] Tondra Mapus Other [facility] [employer] [facility] Other 04-09-2022 10:15-0400 Body height 161.29 cm Tondra Mapus Other [facility] [employer] [facility] Other 04-09-2022 10:15-0400 Body mass index (BMI) [Ratio] 47.42 kg/m2 Tondra Mapus Other [facility] Other 04-09-2022 10:15-0400 Body weight 123.38 kg Tondra Mapus Other [facility] Other 04-09-2022 10:15-0400 Diastolic blood pressure 65 mm[Hg] Tondra Mapus Other [facility] Other 04-09-2022 10:15-0400 Respiratory rate 16 /min Tondra Mapus Other [facility] Other 04-09-2022 10:15-0400 SaO2% (BldA) [Mass fraction] 97 % Tondra Mapus Other [facility] Other 04-09-2022 10:15-0400 Systolic blood pressure 132 mm[Hg] Tondra Mapus Other [facility] Other 12-18-2021 10:45-0500 Body height 161.29 cm Tondra Mapus Other [facility] [employer] [facility] Other 12-18-2021 10:45-0500 Body mass index (BMI) [Ratio] 47.6 kg/m2 Tondra Mapus Other [facility] [employer] [facility] Other 12-18-2021 10:45-0500 Body weight 123.83 kg Tondra Mapus Other [facility] Other 12-18-2021 10:45-0500 Diastolic blood pressure 74 mm[Hg] Tondra Mapus Other [facility] Other 12-18-2021 10:45-0500 Respiratory rate 16 /min Tondra Mapus Other [facility] Other 12-18-2021 10:45-0500 SaO2% (BldA) [Mass fraction] 97 % Tondra Mapus Other [facility] Other 12-18-2021 10:45-0500 Systolic blood pressure 120 mm[Hg] Tondra Mapus Other [facility] Other 09-23-2021 09:30-0500 Body height 161.29 cm Sherman Larson Other [facility] Other 09-23-2021 09:30-0500 Body mass index (BMI) [Ratio] 47.42 kg/m2 Sherman Larson Other [facility] Other 09-23-2021 09:30-0500 Body weight 123.38 kg Sherman Larson Other [facility] Other 09-23-2021 09:30-0500 Diastolic blood pressure 60 mm[Hg] Sherman Larson Other [facility] Other 09-23-2021 09:30-0500 Respiratory rate 16 /min Sherman Larson Other [facility] Other 09-23-2021 09:30-0500 SaO2% (BldA) [Mass fraction] 98 % Sherman Larson Other [facility] Other 09-23-2021 09:30-0500 Systolic blood pressure 126 mm[Hg] Sherman Larson Other [facility] Other 09-10-2021 11:45-0500 Body height 161.29 cm Rosanne Dumont Other [facility] [employer] [facility] Other 09-10-2021 11:45-0500 Body mass index (BMI) [Ratio] 47.94 kg/m2 Rosanne Lazarous Other [facility] Other 09-10-2021 11:45-0500 Body weight 124.74 kg Tondra Lazarous Other [facility] Other 09-10-2021 11:45-0500 Diastolic blood pressure 63 mm[Hg] Tondra Mapus Other [facility] Other 09-10-2021 11:45-0500 Respiratory rate 20 /min Tondra Mapus Other [facility] Other 09-10-2021 11:45-0500 SaO2% (BldA) [Mass fraction] 96 % Tondra Mapus Other [facility] [employer] [facility] Other 09-10-2021 11:45-0500 Systolic blood pressure 121 mm[Hg] Tondra Mapus Other [employer] Other Encounters Encounter Date Encounter Type Care Provider Facility Start: 11-04-2023 End: 11-04-2023 ambulatory SHERMAN LARSON Facility:[facility] Start: 10-19-2023 End: 10-19-2023 ambulatory Sherman Larson Other [employer] Other Start: 10-19-2023 Office outpatient visit 25 minutes Sherman Larson [facility] [place] Start: 09-15-2023 End: 09-15-2023 ambulatory Judith Benitez Facility:[facility] [place] Start: 09-15-2023 End: 09-15-2023 ambulatory DO Sherman Larson Work Phone: [facility] Work Phone: Start: 09-15-2023 End: 09-15-2023 Departed Referred DO Sherman Larson Work Phone: [facility] [place] Work Phone: Start: 09-09-2023 (DM) Diabetes Tondra Mapus [facility] Start: 09-09-2023 Telephone encounter Tondra Tejasus [facility] Start: 09-09-2023 End: 09-09-2023 ambulatory Sherman Larson [facility] Other Start: 09-09-2023 Registered Recurring DO Sherman Larson Work Phone: [facility] Work Phone: Start: 07-15-2023 End: 07-15-2023 ambulatory Referral Self Facility:[facility] [place] Start: 07-15-2023 End: 07-15-2023 ambulatory DO Sherman Larson Work Phone: [facility] Work Phone: Start: 07-15-2023 End: 07-15-2023 Patient encounter procedure DO Sherman Larson Work Phone: [facility] Work Phone: Start: 06-29-2023 End: 06-30-2023 ambulatory Sherman Reyfaby Facility:[facility] [place] Start: 06-29-2023 End: 06-29-2023 ambulatory DO Sherman Larson Work Phone: [facility] Work Phone: Start: 06-29-2023 End: 06-29-2023 Discharged Recurring DO Sherman Larson Work Phone: [facility] [place] Work Phone: Start: 06-29-2023 Registered Recurring DO Sherman Larson Work Phone: [facility] [place] Work Phone: Start: 05-26-2023 Registered Recurring DO Sherman Larson Work Phone: [facility] Work Phone: Start: 04-30-2023 End: 04-30-2023 ambulatory Hien Poole Facility:[facility] [place] Start: 04-30-2023 End: 04-30-2023 ambulatory DO Sherman Larson Work Phone: [facility] Work Phone: Start: 04-30-2023 End: 04-30-2023 Discharged Recurring DO Sherman Larson Work Phone: [facility] [place] Work Phone: Start: 04-05-2023 End: 04-05-2023 ambulatory Sherman Larson Other [employer] Other Start: 04-05-2023 Encounter by ji Larson [facility] [place] Start: 04-02-2023 End: 04-02-2023 ambulatory Tondra Mapus Other [employer] Other Start: 04-02-2023 Telephone encounter Ton Mapus [facility] Start: 03-31-2023 End: 03-31-2023 ambulatory Tondra K Mapus Facility:[facility] [place] Start: 03-31-2023 End: 03-31-2023 ambulatory DO Sherman Larson Work Phone: [facility] Work Phone: Start: 03-31-2023 End: 03-31-2023 Patient encounter procedure DO Sherman Larson Work Phone: [facility] [place] Work Phone: Start: 03-30-2023 Registered Recurring DO Sherman Larson Work Phone: [facility] [place] Work Phone: Start: 02-19-2023 ambulatory Ivory Rizo francisco j [facility] Work Phone: [facility] -[facility] Comment on above: antibiotic prescript ion Start: 02-19-2023 E-mail encounter fro m caregiver Ivory Stuart [facility] Work Phone: [facility] Start: 02-19-2023 End: 02-19-2023 Subsequent hospital visit by physician Lior Linton MD Work Phone: [facility] Endoscopy - ENDO Comment on above: Pancreatic cyst [K86 .2] Start: 02-10-2023 (DM) Diabetes Marceloa Tim [facility] Start: 02-10-2023 End: 02-10-2023 ambulatory Rosanne Dumont Other [facility] [employer] Other Start: 02-10-2023 Registered Recurring DO Sherman Larson Work Phone: [facility] Work Phone: Start: 02-09-2023 ambulatory Lior Linton MD Work Phone: [facility] Endoscopy - ENDO Start: 02-04-2023 Telephone encounter Orville Rocha (Human Development Professor) Hu nt Pre Anesthesia Comment on above: Received Outside Med [facility] Records (Lab Results) Start: 02-02-2023 End: 02-02-2023 Admission to establishment Pacc Main [facility] Start: 02-02-2023 End: 02-02-2023 ambulatory SHERMAN LARSON Pre Anesthesia Comment on above: Pre-op evaluation (P rimary Dx); Type 2 diabetes mellitus without complication, unspecified whether 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 project 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 insulin 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 (HCC); Mixed hyperlipidemia; Endometrial cancer (HCC); Morbid obesity (HCC) Start: 02-02-2023 End: 02-02-2023 Preprocedural examination done Pacc Virtual Pre Anesthesia Start: 01-22-2023 Telephone encounter Lior page MD Work Phone: Gastroenterology Comment on above: Imaging available fo r review Start: 01-07-2023 End: 01-07-2023 ambulatory LIOR LINTON Facility:[facility] Start: 01-07-2023 End: 01-07-2023 Patient encounter procedure Lior Linton MD Work Phone: Gastroenterology Comment on above: Pancreatic cyst (Qian lakhwinder Dx); Family history of pancreatic cancer; History of endometrial cancer Start: 11-19-2022 ambulatory LIOR LINTON Facility:[facility] Start: 11-04-2022 (DM) Diabetes Tondra Tim [facility] Start: 11-04-2022 End: 11-04-2022 ambulatory Tondra Mapus Other [employer] Other Start: 11-02-2022 End: 11-02-2022 ambulatory Heidi Sanchez Other [employer] Other Start: 11-02-2022 Encounter by ji galaviz Heidi Crowleylinette [facility] Start: 10-30-2022 Telephone encounter Lior page MD Work Phone: Gastroenterology Comment on above: Orders Start: 10-14-2022 End: 10-14-2022 ambulatory Tondra Mapus Other [employer] Other Start: 10-14-2022 Telephone encounter Tondra Tim [facility] Start: 09-24-2022 End: 09-24-2022 ambulatory Sherman Larson Other [employer] Other Start: 09-24-2022 Office outpatient visit 15 minutes Sherman Larson [facility] [place] Start: 09-17-2022 End: 09-17-2022 Follow-up encounter Юлия Odom APRN.CHEMISTRY FACULTY MEMBER Work Phone: Gynecology Comment on above: Encounter for follow -up surveillance of endometrial cancer (Primary Dx); Pancreatic cyst; Lung nodules Start: 09-17-2022 End: 09-17-2022 Patient encounter procedure Юлия Odom APRN.CHEMISTRY FACULTY MEMBER Work Phone: [facility] Start: 09-11-2022 End: 09-11-2022 ambulatory ЮЛИЯ ODOM Facility:[facility] Start: 08-13-2022 Telephone encounter Lavinia Godfrey RN R adiology Pet CT Comment on above: Orders Start: 07-21-2022 (DM) Diabetes Tondra Mapus [facility] Start: 07-21-2022 End: 07-21-2022 ambulatory Tondra Mapus Other [employer] [facility] Other Start: 06-11-2022 End: 06-11-2022 Patient encounter procedure DO Sherman Larson Work Phone: [facility] Start: 04-09-2022 Registered Recurring DO Sherman Salvador Work Phone: [facility] Start: 04-09-2022 (DM) Diabetes Tondra Mapus [facility] Start: 04-09-2022 End: 04-09-2022 ambulatory Tondra Mapus Other [employer] Other Start: 03-25-2022 End: 03-25-2022 ambulatory Sherman Larson Other [employer] Other Start: 03-25-2022 Telephone encounter Sherman Larson [facility] [place] Start: 03-12-2022 End: 03-12-2022 ambulatory Tondra Mapus Other [employer] Other Start: 03-12-2022 Telephone encounter Tondra Mapus [facility] Start: 01-29-2022 End: 01-29-2022 ambulatory Tondra Mapus Other [employer] [facility] Other Start: 01-29-2022 Telephone encounter Tondra Mapus [facility] Start: 12-18-2021 (DM) Diabetes Tondra Mapus [facility] Start: 12-18-2021 End: 12-18-2021 ambulatory Tondra Mapus Other [employer] Other Start: 10-18-2021 End: 10-18-2021 ambulatory Sherman Larson Other [employer] Other Start: 10-18-2021 Telephone encounter Sherman Larson [facility] [place] Start: 09-23-2021 End: 09-23-2021 ambulatory Sherman Larson Other [employer] Other Start: 09-23-2021 Office outpatient visit 25 minutes Sherman Larson [facility] Start: 09-10-2021 (DM) Diabetes Tondra Tejasus [facility] Start: 09-10-2021 End: 09-10-2021 ambulatory Tondra Dumont Other [employer] Other Start: 11-04-2018 Preoperative state Rosanne Dawkins s Other [employer] Other Procedures Date Procedure Procedure Detail Performing Clinician Start: 07-15-2023 Screening mammograph y of bilateral breasts DO Sherman Larson Work Phone: Start: 02-19-2023 End: 02-19-2023 Gluc bld gluc mntr dev cleared fda spec home use Jelyl MATTA Work Phone: Start: 02-19-2023 Esophagoscp rig ledezma soral hypopharynx crv ramiro Linton MD Work Phone: Start: 06-11-2022 Screening mammograph y of bilateral breasts DO Sherman Larson Work Phone: Start: 06-11-2022 Dual energy X-ray absorptiometry DO Sherman Larson Work Phone: Plan of Treatment Date Care Activity Detail Author Start: 09-15-2023 Superficial Wound Culture Superficial Wound Culture [facility] [place] Start: 10-12-2022 ADVANCE DIRECTIVE DISCUSSION ADVANCE DIRECTIVE DISCUSSION [facility] Start: 10-12-2022 DEPRESSION ASSESSMENT DEPRESSION ASS ESSMENT [facility] Start: 09-11-2022 End: 11-11-2022 CREATININE BLD CREATININE BLD Lab Routine Malignant neoplasm of body of uterus, unspecified site (HCC) Expected: 09/11/2022, Expires: 11/11/2022 [facility] Work Phone: Comment on above: Expected: 09/11/2022 , Expires: 11/11/2022 Start: 06-12-2022 Influenza vaccination INFLUENZA (#1) [facility] Start: 10-12-2021 ADVANCE DIRECTIVE DISCUSSION ADVANCE DIRECTIVE DISCUSSION [facility] Start: 10-12-2021 DEPRESSION ASSESSMENT DEPRESSION ASS ESSMENT [facility] Start: 09-02-2021 COVID-19 VACCINE (4 - Booster for Pfizer series) COVID-19 VACCINE (4 - Booster for Pfizer series) [facility] Start: 2018 BONE DENSITY BONE DENSITY [facility] Start: 2003 SHINGRIX VACCINE (1 of 2) SHINGRIX VACCINE (1 of 2) [facility] Start: 05-04-2002 Urine microalbumin profile DTAP,TDAP,TD (1 - Tdap) [facility] Start: 1998 COLOGUARD (FIT-DNA) COLOGUARD (FIT-D NA) [facility] Start: 1998 Colonoscopy COLONOSCOPY [facility] Start: 1998 COLORECTAL CANCER SCREENING COLORECTAL CANCER SCREENING [facility] Start: [address] COLONOGRAPHY [facility] Start: 1998 FECAL OCCULT BLOOD FECAL OCCULT BLOO D [facility] Start: 1998 SIGMOIDOSCOPY SIGMOIDOSCOPY [facility] Start: 1993 Mammography MAMMOGRAM [facility] Start: 1971 ANNUAL PCP TEAM [facility] DISEASE VISIT ANNUAL PCP TEAM CHRONIC DISEASE VISIT [facility] Start: 1971 Hepatitis B surface antibody level LDL CHOLESTEROL [facility] Start: 1971 HEPATITIS C SCREENING HEPATITIS C SC REENING [facility] Start: 1963 3 comp foot exam completed DIABETIC FOOT EXAM [facility] Start: 1963 Hepatitis B screening URINE ALBUMIN:CREATININE RATIO [facility] Start: 1963 Hepatitis C antibody , confirmatory test DILATED RETINAL EXAM [facility] Start: 1959 PNEUMOCOCCAL: 65+ (1 - PCV) PNEUMOCOCCAL: 65+ (1 - PCV) [facility] Start: 1958 Hemoglobin A1c/Hemoglobin.total in Blood HBA1C [facility] Bacteria identified in Unspecified specimen by Aerobe culture [facility] [place] CYTOLOGY NON-R D INTERNSHIP CYTOLOGY NON-GY N Lab Routine Pancreatic cyst Release Upon Ordering for 1 Occurrences starting 02/19/2023 [facility] Work Phone: Comment on above: Release Upon Orderin g for 1 Occurrences starting 02/19/2023 End: 01-08-2024 EGD - THERAPEUTIC, EUS, OR TUBE INTERVENTIONS EGD - THERAPEUTIC, EUS, OR TUBE INTERVENTIONS Endoscopy Routine Pancreatic cyst 1 Occurrences starting 01/07/2023 until 01/08/2024 [facility] Work Phone: Comment on above: 1 Occurrences starti ng 01/07/2023 until 01/08/2024 [facility] Immunizations Immunization Date Immunization Notes Care Provider Fa cili 02-18-2022 COVID-19 original vaccine, age 12+ yr, monovalent (PFIZER-BIONTECH - JARAMILLO TOP) Ivory Stuart [facility] Work Phone: [facility] 02-18-2022 COVID-19 Vaccine Pfizer - Documentation Purposes Only Sherman Larson Other [employer] Other 07-08-2021 COVID-19 Pfizer Sherman Kuns Other [facility] 07-08-2021 influenza, seasonal, injectable Shermanleonor Rothmans Other [employer] Other 01-03-2021 COVID-19 Pfizer Sherman Kuns Other [facility] 12-13-2020 COVID-19 Pfizer Sherman Kuns Other [facility] 09-21-2020 zoster vaccine recombinant Sherman Kuns Other [employer] Other 06-26-2020 zoster vaccine recombinant Sherman Kuns Other [facility] [employer] Other 06-20-2019 influenza, seasonal, injectable Tondrcamilo Lazarous Other [employer] Other 07-05-2018 influenza, injectabl e, quadrivalent, preservative free Lavinia Godfrey RN [facility] 06-01-2017 influenza, injectabl e, quadrivalent, preservative free Lavinia Godfrey RN [facility] 08-10-2009 novel [id number], preservative-free, injectable Lavinia Godfrey RN [facility] 05-03-2002 TD(adult) unspecifie d formulation Lavinia Godfrey RN [facility] Payers Date Payer Category Payer Medicare MEDICARE MEDICAR E A AND B [id number] 2018-Present [phone] [address] [address] [place] [address] Medicare [id number] 2018 Unknown [id number] 2018 Unknown [id number] 2018 Medicare [id number] 2018 Self-pay [id number] 2018 Unknown [id number] Unknown [id number] Unknown [id number] Unknown [id number] Unknown [id number] Unknown [id number] Unknown [id number] Unknown [id number] Social History Date Type Detail Facility Unknown if ever smoked [employer] Other Sex Assigned At Sex Assigned At Bir th [employer] Other Start: 07-30-2021 End: 06-29-2023 Tobacco smoking status NHIS Never smoked tobacco (finding) [facility] Start: 1955 Sex Assigned At Female F [facility] Start: 02-12-2018 End: 09-17-2022 Tobacco use and exposure Smokeless tobacco non-user [facility] Start: 04-03-2021 End: 02-02-2023 Alcohol intake Current non-drinker of alcohol (finding) [facility] Start: 09-01-2022 End: 09-11-2022 Exposure to SARS-CoV-2 (event) Not sure [facility] Medical Equipment Procedure Code Equipment Code Equipment [...] 11-16-2018 Arthroplasty, hip, total, anterior approach STEM /09/24 [facility] FDA Start: 11-16-2018 Arthroplasty, hip, [...] 11-16-2018 Start: 09-14-2013 Clinical Notes 09-10-2021 to 11-04-2023 Note Date & Type Note Facility 11-04-2023 Note HNO ID: [id number] Author: ЮЛИЯ ODOM APRN.CHEMISTRY FACULTY MEMBER Service: ? Author Type: Nurse Practitioner Type: Progress Notes Filed: 11/07/2023 09:54 Note Text: DATE: 11/04/2023 PROBLEM: routine Follow up DIAGNOSIS: stage 1a FIGO 2 endometrial cancer. HPI: is a 68 yo female w PMH of DM II, [...] containing portions of nonobstructed small bowel, increased. EGD EUS 02/19/2023 Impression: - A cystic lesion was seen [...] MRCP in 1 year based on cytopathology. Cytology results 02/19/2023 A - PANCREAS FINE NEEDLE ASPIRATION Negative for malignant cells. See comment. SUBJECTIVE: Magy reports that she feels well. No vaginal bleeding or discharge. No shortness of breath, cough, or chest pain. No abdominal pain, nausea, vomiting, diarrhea, or constipation. No dysuria, gross hematuria, urinary frequency, urinary urgency, or incontinence. Vein ablations in legs Saw GI for pancreatic cyst-will continue to follow annually OBJECTIVE: BP 140/73 Pulse 69 Temp 36 ?C (96.8 ?F) Resp 15 GEN: Comfortable HEENT: normocephalic NECK: no adenopathy CARD: RRR PULM: Clear bilat ABD: Soft, nontender, not distended GROIN: No inguinal adenopathy PELVIC: The external genitalia are normal. vagina normal on speculum exam, Vaginal rust without lesion. Bimanual negative. EXT: LE edema-chronic ASSESSMENT: Magy Castro is a 68 year old female w history stage T1a FIGO 2 endometrial cancer, +LVI, MMR nl Limited staging 12/2015 ([facility]) HDRB c 04/2016 Chemo x 5 c 06/2016 Pancreatic cyst work up with EUS, cytology 02/2023 negative. Followed by GI . PLAN: - doing well, exam normal - previous CT chest 09/2022 with lung nodules-will repeat now. - health maintenance up to date-mammogram completed at [facility] jul 2023-negative - continue fol (more content not included)... [facility] 10-19-2023 Evaluation note Encounter Date Diagnosis Assessment Notes Oct, Pancreatic cyst (ICD-10 - K86.2) Pancreatic cyst adenoma has been followed by [facility] with benign pathology results. Oct, History of uterine cancer (ICD-10 - Z85.42) The patient follows with [facility] singe machine operator Юлия Odom. Oct, Venous insufficiency (ICD-10 - I87.2) The patient encouraged continuing plan of care as instructed by the [facility].The patient [...] Blood work ordered today to evaluate coagulopathies. [employer] Other 11-29-2023 Evaluation note* Encounter Date Diagnosis Assessment Notes Treatment Notes Treatment Clinical Notes Aug, Type 2 diabetes mellitus (ICD-10 - E11.9) Managing type 2 diabetes material was published 1. Uncontrolled, Type 2 diabetes A1C 8.3% 2. Blood glucose levels above target. According to [employer] 2 cgm download 08/27/2023- 023 Avg glucose [...] High blood pressure material was published Aug, longterm current use of insulin (ICD-10 - Z79.4) Aug, B12 deficiency (ICD-10 - E53.8) Good food sources of vitamin B12 material was published 03/2023 Vit b12 221 Aug, BMI 45.0-49.9, adult (ICD-10 - Z68.42) Setting weight-loss goals material was published 6 pound weight loss from last visit, continue with weight loss efforts Aug, Skin abnormalities (ICD-10 - L98.9) Referral to dermatology [facility] [employer] Other 11-29-2023 Evaluation note* Encounter Date Diagnosis Assessment Notes Treatment Notes Treatment Clinical Notes Aug, Skin abnormalities (ICD-10 - L98.9) [facility] [employer] Other 09-18-2023 Progress note Author Hien Poole [facility] June 29, 2023 9:41am Note Date/Time June 29, 2023 9:36am [facility] [address] [place] [address] Wound Center Provider Note Signed Patient: Magy Castro MR#: [id number] : 1955 Acct:[id number] Age/Sex: 67 / F Copies to: Sherman Larson,DO Hien Poole, MOLD DRESSER~ HPI Date of Visit Date of Visit: Date of Service: 06/29/2023 Time of Service: 09:35 Narrative HPI: 06/29/23 Debbie is a 67 year old female presenting to [facility] wound care for a follow up visit for eval and treatment of RLE ulcer that appear d/t venous and lymphedema etiologies. She has been a patient here in the past. Urgo k2 wrap will be used along with topical steroid and she will present here for dressings.We spoke about vascular and she did has been having her venous procedures in [place]. Weight loss and elevation and compression and [...] start?: Early May 2023 Mode of Arrival/ Signal Fitter: Personal vehicle Lives with:: Spouse Appetite Description: Within Normal Limits Who helps w/ dressing change?: Wound Care Dept Why Do You Need Help?: Can't Reach Ulcer Smoking Status: Never smoker [facility] Medical History (Updated 06/29/23 @ [...] By: <Electronically signed by WALTER Poole> 06/29/2341 [facility] Work Phone: 1(209) 461-734309-11-2023 Progress note Author Hien Poole [facility] June 22, 2023 1:48pm Note Date/Time June 22, 2023 1:48pm [facility] [address] [place] [address] Wound Center Provider Note Signed Patient: Magy Castro MR#: [id number] : 1955 Acct:[id number] Age/Sex: 67 / F Copies to: Sherman Larson,DO Hien Poole APRN~ HPI Date of Visit Date of Visit: Date of Service: 06/22/2023 Time of Service: 13:44 Subjective Pain Right Lower Leg: Pain Intensity: 0 Wound/Ulcer History When did wound start?: Early May 2023 Mode of Arrival/ Signal Fitter: Personal vehicle Lives with:: Spouse Appetite Description: Within Normal Limits Who helps w/ dressing change?: Wound Care Dept Why Do You Need Help?: Can't Reach Ulcer Smoking Status: Never smoker [facility] Medical History (Updated 06/22/23 @ [...] Appearance: Beefy Red, Epithelial Tissue or Bridge, Renovo and Yellow Surrounding Tissue Appearance: Bright Red [...] <Electronically signed by WALTER Poole> 06/22/23 1348 [facility] Work Phone: 1(624) 333-872607-10-2023 Progress note Author Hien Poole [facility] April 20, 2023 9:12am Note Date/Time April 20, 2023 9:12 am [facility] [address] [place] [address] Wound Center Provider Note Signed Patient: Magy Castro MR#: [id number] : 1955 Acct:[id number] Age/Sex: 67 / F Copies to: DO Hien Taylor APRN~ HPI Date of Visit Date of Visit: Date of Service: 04/20/2023 Time of Service: 09:10 Narrative HPI: 03/25/23 Debbie is a 67 year old female presenting to [facility] wound care for an initial visit for [...] interested in seeing the vascular group in [place] but she wants to wait at this [...] topically to the right leg, will do [place] vein referral today, continues to take the horse chestnut and probiotics Subjective Pain Left Lower Leg: Pain Intensity: 0 Right Lower Leg: Pain Intensity: 0 Wound/Ulcer History When did wound start?: July 2022 Mode of Arrival/ Signal Fitter: Personal vehicle Lives with:: Spouse Appetite Description: Within Normal Limits Who helps w/ dressing change?: Wound Care Dept Why Do You Need Help?: Can't Reach Ulcer and Limited mobility Smoking Status: Never smoker [facility] Medical History (Updated 04/20/23 @ [...] (and venous) Thickness: Skin Breakdown Bed Appearance: Renovo Percent of Wound Bed Granulated/Red: 100 Percent of Devitalized: 0 Length (cm): 35.0 Width (cm): 40.0 Depth (cm): 0.1 CM Sq: 1400.000 Surrounding Tissue Appearance: Peeling and Dryness Surrounding Tissue Temp: Warm Drainage Amount: None Drainage Description: Serosanguineous Drainage Odor: No Odor Left Lower Leg: Type: Lymphedema (and venous) Thickness: Skin Breakdown Bed Appearance: Renovo Percent of Wound Bed Granulated/Red: 100 Percent [...] By: <Electronically signed by WALTER Poole> 04/20/[address] [facility] Work Phone: 1(811) 372-375906-29-2023 Progress note Author Hien Poole [facility] April 09, 2023 10:05am Note Date/Time April 09, 2023 10:0 5am [facility] [address] [place] [address] Wound Center Provider Note Signed Patient: Magy Castro MR#: [id number] : 1955 Acct:[id number] Age/Sex: 67 / F Copies to: Sherman Larson,DO Hien Poole APRN~ HPI Date of Visit Date of Visit: Date of Service: 04/09/2023 Time of Service: 10:00 Narrative HPI: 03/25/23 Debbie is a 67 year old female presenting to [facility] wound care for an initial visit for [...] interested in seeing the vascular group in [place] but she wants to wait at this [...] wound start?: July 2022 Mode of Arrival/ Signal Fitter: Personal vehicle Lives with:: Spouse Appetite Description: Within Normal Limits Who helps w/ dressing change?: Wound Care Dept Why Do You Need Help?: Can't Reach Ulcer and Limited mobility Smoking Status: Never smoker [facility] Medical History (Updated 04/09/23 @ [...] (and venous) Thickness: Skin Breakdown Bed Appearance: Renovo Percent of Wound Bed Granulated/Red: 100 Percent of Devitalized: 0 Length (cm): 35.0 Width (cm): 40.0 Depth (cm): 0.1 CM Sq: 1400.000 Surrounding Tissue Appearance: Dryness Surrounding Tissue Temp: Warm Drainage Amount: Small Drainage Description: Serosanguineous Drainage Odor: No Odor Left Lower Leg: Type: Lymphedema (and venous) Thickness: Skin Breakdown Bed Appearance: Beefy Red, Renovo and Yellow Percent of Wound Bed Granulated/Red: [...] <Electronically signed by WALTER Poole> 04/09/23 100[address] [facility] Work Phone: 1(166) 658-650106-22-2023 Progress note Author Hien Poole [facility] April 02, 2023 9:18am Note Date/Time April 02, 2023 9:19 am [facility] [address] [place] [address] Wound Center Provider Note Signed Patient: Magy Castro MR#: [id number] : 1955 Acct:[id number] Age/Sex: 67 / F Copies to: Sherman Larson,DO Hien Poole APRN~ HPI Date of Visit Date of Visit: Date of Service: 04/02/2023 Time of Service: 09:16 Narrative HPI: 03/25/23 Debbie is a 67 year old female presenting to [facility] wound care for an initial visit for [...] interested in seeing the vascular group in [place] but she wants to wait at this [...] wound start?: July 2022 Mode of Arrival/ Signal Fitter: Personal vehicle Lives with:: Spouse Appetite Description: Within Normal Limits Who helps w/ dressing change?: Wound Care Dept Why Do You Need Help?: Can't Reach Ulcer and Limited mobility Smoking Status: Never smoker [facility] Medical History (Updated 04/02/23 @ [...] Appearance: Beefy Red, Epithelial Tissue or Bridge, Renovo and Yellow Percent of Wound Bed Granulated/Red: 90 Percent of Devitalized: 10 Length (cm): 35.0 Width (cm): 40.0 Depth (cm): 0.1 CM Sq: 1400.000 Surrounding Tissue Appearance: Hyperpigmented Surrounding Tissue Temp: Warm Drainage Amount: Moderate Drainage Description: Serosanguineous Drainage Odor: No Odor Left Lower Leg: Type: Lymphedema (and venous) Thickness: Skin Breakdown Bed Appearance: Beefy Red, Epithelial Tissue or Bridge, Renovo and Yellow Percent of Wound Bed Granulated/Red: [...] By: <Electronically signed by WALTER Poole> 04/02/239[address] [facility] Work Phone: [phone]) 428-909206-14-2023 Progress note Author Hien Poole [facility] March 25, 2023 3:02pm Note Date/Time March 25, 2023 2:58 pm [facility] [address] [place] [address] Wound Center Provider Note Signed Patient: Magy Castro MR#: [id number] : 1955 Acct:[id number] Age/Sex: 67 / F Copies to: Sherman Larson,DO Hien Poole APRN~ HPI Date of Visit Date of Visit: Date of Service: 03/25/2023 Time of Service: 14:52 Narrative HPI: 03/25/23 Debbie is a 67 year old female presenting to [facility] wound care for an initial visit for [...] interested in seeing the vascular group in [place] but she wants to wait at this [...] wound start?: July 2022 Mode of Arrival/ Signal Fitter: Personal vehicle Lives with:: Spouse Appetite Description: Within Normal Limits Who helps w/ dressing change?: Wound Care Dept Why Do You Need Help?: Can't Reach Ulcer and Limited mobility Smoking Status: Never smoker [facility] Medical History (Updated 03/25/23 @ [...] Appearance: Beefy Red, Epithelial Tissue or Bridge, Renovo and Yellow Percent of Wound Bed Granulated/Red: 90 Percent of Devitalized: 10 Length (cm): 35.0 Width (cm): 40.0 Depth (cm): 0.1 CM Sq: 1400.000 Surrounding Tissue Appearance: Hyperpigmented Surrounding Tissue Temp: Warm Drainage Amount: Moderate Drainage Description: Serosanguineous Drainage Odor: No Odor Left Lower Leg: Type: Lymphedema (and venous) Thickness: Skin Breakdown Bed Appearance: Beefy Red, Epithelial Tissue or Bridge, Renovo and Yellow Percent of Wound Bed Granulated/Red: [...] <Electronically signed by WALTER Poole> 03/25/23 1502 [facility] Work Phone: [phone]) [phone] Nurse Note* Lakhwinder Payan RN - 02/19/2023 [...] None REFERRAL (RECOMMENDATION): None [facility] History and physical note * Lior Linton [...] TIME: 2:04 PM Source Note - Christophe Shaffer, WALTER.CHEMISTRY FACULTY MEMBER - 02/02/2023 8:00 AM EDT Images from the original note were not included. PREANESTHESIA CONSULT CLINIC TELEHEALTH VISIT Patient has been identified by name and date of : Yes This is a virtual visit using [employer] video visit. It require patient-provider interaction for [...] fevers. Neuro: No history of TIA's, stroke, CLOUD DEVELOPER tumor, impaired sensorium, hemiplegia, paraplegia or quadraplegia. No neurological symptoms or problems. Respiratory: No history of current cough or dyspnea, or pneumonia in the past 6 weeks. No history of respiratory/pulmonary symptoms or problems. Cardiovascular: Positive for: DVT/PE, HLD, Negative for Recent [place], Angina, Arrhythmia, CAD, Chest Pain, CHF, HTN, PVD, Valvular Heart Disease GI: SEE HPI Negative for GERD, Nausea, Vomiting, Abdominal pain, Hepatitis, Liver disease, Pancreatitis, Colon cancer, Rectal cancer : No history of dysuria, frequency or incontinence,, stones or chronic kidney disease R D INTERNSHIP: Negative for abnormal vaginal bleeding, abnormal vaginal [...] device. I spent more than 21-40 minutes [id number] with the patient and over half the time was devoted tocounseling and/or coordination of care. This is a virtual visit. It required patient-provider interaction for the medical decision making as documented above. SIGNATURE: Christophe Shaffer APRN.VINCE PATIENT NAME: Magy Castro DATE: February 02, 2023 TIME: 8:45 AM PAGER/CONTACT #: documented in this encounterK[facility]05-02-2023 Evaluation note* Encounter Date Diagnosis Assessment Notes Treatment Notes Treatment Clinical Notes February, Type 2 diabetes mellitus (ICD-10 - E11.9) Managing type 2 diabetes material was published 1. Uncontrolled, Type 2 diabetes A1C 7.3% 2. Blood glucose levels improved. According to [employer] 2 cgm download 01/28/2023-02/10/2023 Avg glucose 160. [...] hyperglycemia, or diabetes medication issues. 6. Prescriptions: Competitor MAIL ORDER/CARLOS PIZANO: None at this time. [...] High blood pressure material was published February, 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 manager current use of insulin (ICD-10 - Z79.4) February, B12 deficiency (ICD-10 - E53.8) Good food sources of vitamin B12 material was published 03/2022 Vit b12 >1400 February, BMI 45.0-49.9, adult (ICD-10 - Z68.42) Setting weight-loss goals material was published [employer] Other [id number] Miscellaneous Notes* Telephone Encounter - Orville Zamarripa LPN - 02/04/2023 11:44 AM EDTSummary: External Lab Results Scanned into patients chart documented in this encounterK[facility]04-25-2023 Miscellaneous Notes* Telephone Encounter - Heidi Parson RN - 02/03/2023 1:19 PM EDT Attempted to call pt, no answer. Left detailed voice msg regarding msg below. Instructed to call back with any questions. Heidi Parson RN * Telephone Encounter - Lior Linton MD - 02/03/2023 7:22 AM EDT MRCP images were reviewed. The images were downloaded to [facility] and the MRI was done at [facility]. Agree with the findings of the report. [...] when the MRCP disc is loaded into [employer] for my review. documented in this encounterK[facility]04-24-2023 Instructions* Patient Instructions* Christophe Shaffer APRN.CHEMISTRY FACULTY MEMBER - 02/02/2023 8:36 AM EDT PATIENT PREOPERATIVE INSTRUCTIONS Lior Linton MD has scheduled you for your procedure at this surgery center: [facility]: [phone] --[id number] [address]. Please check in on the1st floor at [...] Procedures: - YOU MUST HAVE A RESPONSIBLE GIRL FRIDAY TAKE YOU HOME. A JAVA LEAD DEVELOPER OR RABBIT DRESSER CANNOT BE MADE A RESPONSIBLE GIRL FRIDAY. - We recommend that a responsible person [...] Advance Directive, please fax a copy to [phone] or email to for it to be [...] day. Christophe Shaffer APRN.CNP documented in this encounterK[facility]04-24-2023 History and physical note * Christophe Shaffer APRN.CNP - 02/02/2023 8:00 AM EDT Images from the original note were not included. PREANESTHESIA CONSULT CLINIC TELEHEALTH VISIT Patient has been identified by name and date of : Yes This is a virtual visit using [employer] video visit. It require patient-provider interaction for [...] fevers. Neuro: No history of TIA's, stroke, CLOUD DEVELOPER tumor, impaired sensorium, hemiplegia, paraplegia or quadraplegia. No neurological symptoms or problems. Respiratory: No history of current cough or dyspnea, or pneumonia in the past 6 weeks. No history of respiratory/pulmonary symptoms or problems. Cardiovascular: Positive for: DVT/PE, HLD, Negative for Recent WI, Angina, Arrhythmia, CAD, Chest Pain, CHF, HTN, PVD, Valvular Heart Disease GI: SEE HPI Negative for GERD, Nausea, Vomiting, Abdominal pain, Hepatitis, Liver disease, Pancreatitis, Colon cancer, Rectal cancer : No history of dysuria, frequency or incontinence,, stones or chronic kidney disease R D INTERNSHIP: Negative for abnormal vaginal bleeding, abnormal vaginal [...] device. I spent more than 21-40 minutes [id number] with the patient and over half the time was devoted tocounseling and/or coordination of care. This is a virtual visit. It required patient-provider interaction for the medical decision making as documented above. SIGNATURE: Christophe Shaffer APRN.CNP PATIENT NAME: Magy Castro DATE: February 02, 2023 TIME: 8:45 AM PAGER/CONTACT #: documented in this encounterK[facility]03-29-2023 History and physical note * Lior Linton [...] alcohol. 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 Her brother age 51 from pancreatic [...] (primary diagnosis) The MRCP was done at [facility]. I will review the images after they are downloaded to [facility]. We will schedule the patient for EUS with possible FNA especially with the strong family history ofpancreatic cancer. - EGD - THERAPEUTIC, EUS, OR TUBE INTERVENTIONS 2. Family history of pancreatic cancer - ICD9: V16.0, ICD10: Z80.0 Brother at age 51 from elevator service mechanic cancer. He was not smoker or alcoholic. 3. History of endometrial cancer - ICD9: V10.42, ICD10: Z85.42 History of endometrial cancer stage II diagnosed 2016 and treated with surgery followed by chemo and radiation. Lior Linton MD, FACP documented in this encounterK[facility]01-24-2023 Evaluation note* Encounter Date Diagnosis Assessment Notes [...] High blood pressure material was published Oct, longterm current use of insulin (ICD-10 - Z79.4) Oct, B12 deficiency (ICD-10 - E53.8) Good food sources of vitamin B12 material was published 03/2022 Vit b12 >1400 Oct, BMI 45.0-49.9, adult (ICD-10 - Z68.42) Setting weight-loss goals material was published 2 pound weight loss from last visit, continue with weight loss efforts [employer] Other 01-19-2023 Miscellaneous Notes* Telephone Encounter - Romain Bautista Pss - 10/30/2022 11:33 AM EST Spoke with patient and she is scheduled @ 9:[address] Linton for O/V. Luigi Batres * Telephone Encounter - Heidi Parson RN - 10/30/2022 11:18 AM EST Medardo is supposed to call pt today to schedule in biliary pancreas clinic on 11/19/2022. Heidi Parson RN * Telephone Encounter - Blanca Norton - 10/30/2022 11:09 AM EST Pt saw Dr. Rowland, at [facility] and was given Dr. Linton's name to schedule a ERCP?Dr. Rowland does not do ERCPs Pt stated that Dr. Rowland has sent over pt's medical records?! Pt can be reached at Thanks documented in this encounterK[facility]12-14-2022 Evaluation note* Encounter Date Diagnosis Assessment Notes [...] a (ICD-10 - C54.1) Pt reports the FINANCIAL ANALYST at the cancer center ordered a CT [...] agreement, therefore we will continue to monitor. Sep, Lung nodule (ICD-10 - R91.1) Review of pt's CT, which did reveal multiple lung nodules. Her oncologist will repeat this CT in one year, and we will continue to monitor. Sep, Hyperlipidemia (ICD-10 - E78.5) Pt is to continue the above medication, and the above blood work was ordered to monitor this. [employer] Other 12-07-2022 History of Present illness Narrative* Юлия Odom APRN.[facility] - 09/17/2022 9:40 AM EST DATE: 09/17/2022 [...] cancer, +LVI, MMR nl Limited staging 12/2015 ([facility]) HDRB c 04/2016 Chemo x 5 c [...] health maintenance up to date-mammogram completed at [facility] - continue follow up with PCP - RTC in 12 months, sooner prn for issues/concerns. Юлия Odom APRN.CNP Medical Decision Making: Problems: Low: Stable chronic illness Data: Unique test result(s) reviewed: 1 Risk: Low: Low risk from testing/treatment Medical Decision Making Level: 3 - Low documented in this encounterK[facility]12-01-2022 NoteHNO ID: [id number] Author: RT Eugenia(R) Service: ? Author Type: [...] BY: RT Eugenia(R) September 11, 2022 10:00 [facility]12-01-2022 NoteHNO ID: [id number] Author: Lavinia Godfrey RN Service: ? Author [...] Final Comment: Account Credited DUPLICATE ORDER MW [id number] 09/13/2021 0.70 0.58 - 0.96 mg/dL [...] Final Comment: Account Credited DUPLICATE ORDER MW [id number] P.O.C.T. RESULTS: POC done: Yes, See Lab Tab September 11, 2022 TREATMENT: No Hydration needed. IV SITE: Ambulatory: A peripheral IV was started in the Left antecubital site with a Angio cath: 20 gauge. IV SITE APPEARANCE: Clean,Dry and Intact SIGNATURE: Lavinia Godfrey RN PATIENT NAME: Magy Castro DATE: September 11, 2022 TIME: 9:59 [facility]11-02-2022 Miscellaneous Notes* Telephone Encounter - Lavinia Godfrey RN - 08/13/2022 10:56 AM EDT Please sign pending Cre order for Magy Castro for upcoming CT with contrast on 09/11/22. Thank you. Lavinia Godfrey RN documented in this encounterKettering Health10-10-2022 Evaluation note* Encounter Date Diagnosis Assessment Notes Treatment Notes Treatment Clinical Notes Jul, Type 2 diabetes mellitus (ICD-10 - E11.9) Managing type 2 diabetes material was published 1. Uncontrolled, Type 2 diabetes A1C 8.2% 2. Blood glucose levels above target. According to [employer] 2 cgm download 07/08/2022-07/21/20 Avg glucose 201. [...] High blood pressure material was published Jul, 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 manager current use of insulin (ICD-10 - Z79.4) Jul, B12 deficiency (ICD-10 - E53.8) Good food sources of vitamin B12 material was published 03/2022 Vit b12 >1400 Jul, BMI 45.0-49.9, adult (ICD-10 - Z68.42) Setting weight-loss goals material was published [employer] Other 06-29-2022 Evaluation note* Encounter Date Diagnosis Assessment Notes Treatment Notes Treatment Clinical Notes Mar, Type 2 diabetes mellitus (ICD-10 - E11.9) Managing type 2 diabetes material was published 1. Uncontrolled, Type 2 diabetes A1C 7.1% 2. Blood glucose levels above target. According to [employer] 2 cgm download 03/27/2022- 2 Avg glucose [...] High blood pressure material was published Mar, 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 manager current use of insulin (ICD-10 - Z79.4) Mar, B12 deficiency (ICD-10 - E53.8) Good food sources of vitamin B12 material was published 03/2022 Vit b12 >1400 Mar, BMI 45.0-49.9, adult (ICD-10 - Z68.42) Making healthy choices at restaurants material was published [employer] Other 06-14-2022 Evaluation note* Encounter Date Diagnosis Assessment Notes Treatment Notes Treatment Clinical Notes Mar, Sinus congestion (ICD-10 - R09.81) [employer] Other 04-20-2022 Evaluation note* Encounter Date Diagnosis Assessment Notes Treatment Notes Treatment Clinical Notes Jan, Type 2 diabetes mellitus (ICD-10 - E11.9) [employer] Other 03-09-2022 Evaluation note* Encounter Date Diagnosis Assessment Notes Treatment Notes Treatment Clinical Notes Dec, Type 2 diabetes mellitus (ICD-10 - E11.9) Managing type 2 diabetes material was published 1. Controlled, Type 2 diabetes A1C 7% 2. Blood glucose levels improved. According to [employer] 2 cgm download 12/05/2021-12/18/2021 Avg glucose 157. [...] pattern. Reviewed with pt option of downloading [employer] to help with carb counting. Pt [...] u100 x1 pen given. Sent fiasp to [employer] 7. Reviewed with pt if right [...] High blood pressure material was published Dec, 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 manager current use of insulin (ICD-10 - Z79.4) Dec, B12 deficiency (ICD-10 - E53.8) Good food sources of vitamin B12 material was published 04/2021 Vit b12 211 on supplement Dec, BMI 45.0-49.9, adult (ICD-10 - Z68.42) Making healthy choices at restaurants material was published Dec, Hypoglycemia associated with type 2 diabetes mellitus (ICD-10 - E11.649) Low blood glucose and diabetes material was published [employer] Other 01-07-2022 Evaluation note* Encounter Date Diagnosis Assessment Notes Treatment Notes Treatment Clinical Notes Oct, Cough (ICD-10 - R05.9) [employer] Other 12-13-2021 Evaluation note* Encounter Date Diagnosis [...] Sep, Vitamin D deficiency (ICD-10 - E55.9) [employer] Other 11-30-2021 Evaluation note* Encounter Date Diagnosis Assessment Notes Treatment Notes Treatment Clinical Notes Aug, Type 2 diabetes mellitus (ICD-10 - E11.9) Managing type 2 diabetes material was published 1. Uncontrolled, Type 2 diabetes A1C 7.2% 2. Blood glucose levels improved, above target. According to [employer] 2 cgm download 08/28/2021- 021 Avg glucose [...] medication issues. 6. Prescriptions: Victoza sent to [facility]. Aug, Dietary counseling and surveillance (ICD-10 - Z71.3) Eat well, exercise well, be well: dietary and fitness guidelines material was published Aug, Hyperlipidemia (ICD-10 - E78.5) Managing your cholesterol material was published 04/2021 ldl 75, trig. 164 on statin. Aug, HTN (hypertension) (ICD-10 - I10) High blood pressure material was published Aug, 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 manager current use of insulin (ICD-10 - Z79.4) Aug, B12 deficiency (ICD-10 - E53.8) Good food sources of vitamin B12 material was published 04/2021 Vit b12 211 on supplement Aug, BMI 45.0-49.9, adult (ICD-10 - Z68.42) Making healthy choices at restaurants material was published Aug, Hypoglycemia associated with type 2 diabetes mellitus (ICD-10 - E11.649) Low blood glucose and diabetes material was published [employer] Other Evaluation noteNo InformationNort [employer] Other Evaluation noteNo assessment information available [facility] Work Phone: Evalujevcg note* Diagnosis Malignant neoplasm of body of uterus, unspecified site (HCC)- [facility] Diagnosis Encounter for follow-up surveillance of endometrial cancer- Primary Unspecified follow-up examination Pancreatic cyst Cyst and pseudocyst of pancreas Lung nodules Other nonspecific abnormal finding of lung field [facility] Diagnosis Pancreatic cyst- Primary Cyst and pseudocyst of pancreas Family history of pancreatic cancer Family history of malignant neoplasm of gastrointestinal tract History of endometrial cancer Personal history of malignant neoplasm of other parts of uterus [facility]* Diagnosis Pre-op evaluation- Primary Preoperative examination, unspecified Type 2 diabetes mellitus without complication, unspecified whether fci insulin use (HCC) Mixed hyperlipidemia Endometrial cancer (HCC) Malignant neoplasm of corpus uteri, except isthmus Morbid obesity (HCC) Morbid obesity [facility]* Diagnosis Pancreatic cyst Cyst and pseudocyst of pancreas [facility]* Diagnosis Onset Date Resolution Status Diabetes chronic Edema chronic 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 Inflammation chronic Lymphedema of both lower extremities chronic Obesity chronic Venous stasis of both lower extremities chronic Venous stasis ulcer of left lower extremity chronic Venous stasis ulcer of right lower extremity chronic [facility] Work Phone: Evaluation note* Diagnosis Onset Date Resolution Status Diabetes chronic Edema chronic 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 Inflammation chronic Lymphedema of both lower extremities chronic Obesity chronic Venous stasis of both lower extremities chronic Candidiasis resolved Cellulitis resolved Venous stasis ulcer of left lower extremity resolved Venous stasis ulcer of right lower extremity resolved [facility] Work Phone: Evaluation note* Diagnosis Onset Date [...] stasis ulcer of right lower extremity resolved [facility] Work Phone: Evaluation note* Diagnosis Onset Date Resolution Status Diabetes chronic Edema chronic 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 Inflammation chronic Lymphedema of both lower extremities chronic Obesity chronic Venous stasis of both lower extremities chronic Candidiasis resolved Venous stasis ulcer of right lower extremity resolved [facility] Work Phone: history general Narrative - Reported* [...] See Above Hospitalization History Covid 19 10/16/20- [employer] Other history general Narrative - Reported* Type [...] See Above Hospitalization History Covid 19 10/16/20- [employer] Other history general Narrative - Reported* Type [...] 06/08/18 Mammogram Medical History Covid + 10/2021 Medical History 05/2022 DEXA Medical History Cyst on Pancreas 10/2022 Surgical History gall bladder Surgical History appendicitis Surgical History TOTAL HYSTERECTOMY, oophorectom y 12/25 Surgical History Tubal Surgical History anal abscess 05/28 Surgical History Ablation left lower leg 06/18/18 Surgical History Right Total Hip Replacement 11-16 Hospitalization History See Above Hospitalization History Covid 19 10/16/20- [facility] [employer] Other History general [facility]ative - [facility] [employer] Other Progress note Author Hien Poole [facility] April 30, 2023 9:07am Note Date/Time April 30, 2023 9:07 am [facility] [address] [place] [address] Wound Center Provider Note Signed Patient: Magy Castro MR#: [id number] : 1955 Acct:[id number] Age/Sex: 67 / F Copies to: Sherman Larson,DO Hien Poole APRN~ HPI Date of Visit Date of Visit: Date of Service: 04/30/2023 Time of Service: 09:05 Narrative HPI: 03/25/23 Debbie is a 67 year old female presenting to [facility] wound care for an initial visit for [...] interested in seeing the vascular group in [place] but she wants to wait at this [...] wound start?: July 2022 Mode of Arrival/ Signal Fitter: Personal vehicle Lives with:: Spouse Appetite Description: Within Normal Limits Who helps w/ dressing change?: Wound Care Dept Why Do You Need Help?: Can't Reach Ulcer and Limited mobility Smoking Status: Never smoker [facility] Medical History (Updated 04/30/23 @ [...] 10 Dictated By: Hien Poole APRN DD/ 0905 Signed By: <Electronically signed by WALTER Poole> 04/30/23 0907 [facility] Work Phone: [facility] for referral (narrative)* Outpatient Procedure (Routine) - Authorized Specialty Diagnoses / Procedures Referred By Contac t Referred To Contact [facility] Diagnoses Pancreatic cyst Procedures EGD - THERAPEUTIC, EUS, OR TUBE INTERVENTIONS EGD INTRMURAL US NEEDLE ASPIRATE/[place] [address] [place] [address] [address] Referral ID Status Reason Start Date Expiration Date Visits Requested Visits Authorized [id number] Authorized Auto-Generat ed Referral 01/07/2023 01/08/2024 1 1 T [facility] for referral (narrative)* Outpatient Procedure (Routine) - Closed Specialty Diagnoses / Procedures Referred By Contac t Referred To Contact [facility] Diagnoses Pancreatic cyst Procedures EGD - THERAPEUTIC, EUS, OR TUBE INTERVENTIONS EGD INTRMURAL US NEEDLE ASPIRATE/[place] [address] [place] [address] [address] [address] [place] [address] Referral ID Status Reason Start Date Expiration Date V isits Requested Visits Authorized [id number] Closed Auto-Generate d Referral 01/07/2023 01/08/2024 1 1 T [facility] for visit Narrative* Outpatient Procedure (Routine) - Closed Specialty Diagnoses / Procedures Referred By Contac t Referred To Contact [facility] Diagnoses Pancreatic cyst Procedures EGD - THERAPEUTIC, EUS, OR TUBE INTERVENTIONS EGD INTRMURAL US NEEDLE ASPIRATE/[place] [address] [place] [address] [address] Referral ID Status Reason Start Date Expiration Date V isits Requested Visits Authorized [id number] Closed Auto-Generate d Referral 01/07/2023 01/08/2024 1 1 [facility] Chief Complaint and Reason for Visit Chief [...] 1 Skin abnormalities ( L98.9) Referral Organization [facility] Referring Provider First Name Rosanne Referring Provider Last Name Tim Referring Provider Specialty Nurse Pract itioner Referred Organization [facility] Referred Provider Chi Cordero Referred Address ,[place], [place],[address] Referred Provider Specialty Dermatology Referral Priority Routine Specialty Diagnoses / Procedures Referred By Viky t Referred To Contact Gastroenterology Diagnoses Pancreatic cyst Procedures CONSULT TO GASTROENTEROLOGY OFFICE/OUTPATIENT NEW HIGH [facility] 60-74 MINUTES Юлия Odom APRN.CHEMISTRY FACULTY MEMBER [address] [place] [address] Referral ID Status Reason Start Date Expiration Date Visits Requested Visits Authorized [id number] Authorized PCP Requested Referral 09/17/2022 09/17/2023 1 [...] Sherman Larson DO Primary Care Provider Active SHY [employer] Attending Provider Active Team Status: Inactive Member [...] Primary Care Provider, Attending Provi regan Active 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 Start Date End Date Sherman Larson [address] [address] PCP - General Family Medicine 01/15/16 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 Start Date End Date Sherman Larson [address] [address] PCP - General Family Medicine 01/15/16 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 Start Date End Date Sherman Larson, [address] [address] PCP - General Family Medicine 01/15/16 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 Start Date End Date Sherman Larson, [address] [address] PCP - General Family Medicine 01/15/16 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 Start Date End Date Sherman Larson, [address] [address] PCP - General Family Medicine 01/15/16 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 Start Date End Date Sherman Larson, [address] [phone] PCP - General Family Medicine 01/15/16 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 Start Date End Date Sherman Larson, [address] [phone] PCP - General Family Medicine 01/15/16 Goals [...] or prosecute any alcohol or drug abuse patient.[facility] ClinicIn the event this information is protected by the Federal Confidentiality of Alcohol and Drug Abuse Patient Records regulations: The Federal rules restrict any use of the information to criminally investigate or prosecute any alcohol or drug abuse patient.[facility] the event this information is protected by the Federal Confidentiality of Alcohol and Drug Abuse Patient Records regulations: The Federal rules restrict any use of the information to criminally investigate or prosecute any alcohol or drug abuse patient.[facility] the event this information is protected by the Federal Confidentiality of Alcohol and Drug Abuse Patient Records regulations: The Federal rules restrict any use of the information to criminally investigate or prosecute any alcohol or drug abuse patient.[facility] the event this information is protected by the Federal Confidentiality of Alcohol and Drug Abuse Patient Records regulations: The Federal rules restrict any use of the information to criminally investigate or prosecute any alcohol or drug abuse patient.[facility] the event this information is protected by the Federal Confidentiality of Alcohol and Drug Abuse Patient Records regulations: The Federal rules restrict any use of the information to criminally investigate or prosecute any alcohol or drug abuse patient.[facility] the event this information is protected by the Federal Confidentiality of Alcohol and Drug Abuse Patient Records regulations: The Federal rules restrict any use of the information to criminally investigate or prosecute any alcohol or drug abuse patient.[facility] the event this information is protected by the Federal Confidentiality of Alcohol and Drug Abuse Patient Records regulations: The Federal rules restrict any use of the information to criminally investigate or prosecute any alcohol or drug abuse patient.[facility] the event this information is protected by the Federal Confidentiality of Alcohol and Drug Abuse Patient Records regulations: The Federal rules restrict any use of the information to criminally investigate or prosecute any alcohol or drug abuse patient.[facility] the event this information is protected by the Federal Confidentiality of Alcohol and Drug Abuse Patient Records regulations: The Federal rules restrict any use of the information to criminally investigate or prosecute any alcohol or drug abuse patient.[facility] INFORMATION SOURCE (unrecogn ized section and content) DATE CREATED AUTHOR 02/05/2023 [facility] DATE CREATED AUTHOR AUTHOR'S ORGANIZ ATION 09/24/2023 [facility] DATE CREATED AUTHOR AUTHOR'S ORGANIZ ATION 11/08/2023 [facility] FOR RECORDS PERTAINING TO PATIENTS WHO [...] BE BASED ON THE PRIMARY CLINICAL RECORDS. [employer] [facility]. provides no warranty or guarantee of the accuracy or completeness of information in this document.
[2023-11-10] MEDS: LIDOCAINE HCL 1% 100 MG/10 ML MDV INJ (13:18)
[2023-11-10] MEDS: 0.9 % SODIUM CHLORIDE 500 ML, LIDOCAINE HCL 20 ML, SODIUM BICARBONATE 10 MEQ INJ (13:18)
== END 2023-11-10 12:56 | disposition home or self-care (01) ==
LOC: VC 12:55
PROVIDERS: PCP Radiology Diagnostic Radiology; Visit Provider Radiology Diagnostic Radiology
DX: I83.813 Varicose veins of bilateral lower extremities with pain (principal)
CPT/HCPCS: 36478

== ENCOUNTER 2023-11-20 08:49 | Outpatient (OUT) | payer MEDICARE, OTHER, SELFPAY ==
--- NOTE | 2023-11-20 08:56 | VEIN_ITS ---
Patient Name: OXANA CASTRO MR#: [id number] : 1955 Exam Date: 11/20/2023 Ordering Doctor: DR MICHELE MCCALL M.D. RADIOLOGY REPORT PROCEDURE: FACILITY EST LMTD VEIN CENTER - OFFICE VISIT FOLLOW UP COMPARISON: [facility] EST LMTD, 10/27/2023. [facility] EST LMTD, 10/08/2023. PROGRESS NOTES: The patient reports no significant problems following intravenous laser ablation of left leg incompetent perforating veins. The patient did not require oral analgesics. The patient has tried to wear compression wraps. The patient is unable exercise due to her physical condition Physical exam demonstrates no areas of erythema warmth to suggest cellulitis or thrombophlebitis. Multiple small skin ulcerations noted left leg with subcutaneous swelling and skin thickening, still moderate to marked but improved from her initial exam Review of the ultrasound performed the same day demonstrates occlusive thrombus extending throughout the treated left leg incompetent perforating veins. No deep vein thrombus. Multiple incompetent varicose veins. The patient expressed a desire to proceed with treatment of incompetent varicose veins with micro foam chemical ablation. VEIN/ Facility EST LMTD IMPRESSION: 1. Successful ablation of treated incompetent left leg perforating veins 2. Persistent bilateral incompetent varicose veins. PLAN: Micro foam chemical ablation incompetent varicose veins Nurse notes, history and physical were reviewed and confirmed, see attached forms. The nurse was present throughout the physical exam and consultation Dictated by: Michele Mccall MD on 11/20/2023 at 10:49 Approved by: Michele Mccall MD on 11/20/2023 at 10:51
--- NOTE | 2023-11-20 08:56 | VEIN_ITS ---
Patient Name: OXANA CASTRO MR#: [id number] : 1955 Exam Date: 11/20/2023 Ordering Doctor: DR MICHELE MCCALL M.D. RADIOLOGY REPORT PROCEDURE: VC EXT VENOUS LT LIMITED COMPARISON: VC EXT VENOUS LT LIMITED, 10/27/2023. VC EXT VENOUS LT LIMITED, 09/21/2023. INDICATIONS: I80.02 Phlebitis of superficial veins of lt lower extremity TECHNIQUE: Lower extremity samson scale and Duplex Doppler evaluation of the deep venous system from the inguinal ligament through the calf veins. FINDINGS: REGION: Left lower extremity. THROMBI: Negative for DVT. Heat induced thrombus in the treated perforating veins. Heat induced thrombus visualized 3.8cm from the SFJ. No deep vein thrombus. COMPRESSIBILITY: Non-compressible segments corresponding to thrombus FLOW: Areas of absent flow corresponding to thrombus CONCLUSION: Post ablation occlusion of treated incompetent veins Dictated by: Michele Mccall MD on 11/20/2023 at 09:16 Approved by: Michele Mccall MD on 11/20/2023 at 09:17
--- OUTSIDE RECORDS SUMMARY | 2023-11-20 08:58 | XMS_ITS | CCD ---
Author Name Unknown Address [address] [place] [address] Organization [facility] Care Team Providers Care Hand Ironer Name Role Phone Rosanne Dumont Unavailable Sherman Larson Unavailable DO Sherman Larson Primary Care Provider DO Sherman Larson Attending Provider [phone] DO Dawn Sow Referring Provider Self, Referral Attending Provider Unavailable Sherman Larson DO Primary Care Provider Sherman Larson DO Primary Care Provider [phone] Heidi Sanchez Unavailable SHERMAN LARSON Primary Care Unavailable OSCAR, KHALED Referring Unavailable OSCAR, KHALED Attending Unavailable SHERMAN LARSON Primary Care Unavailable OSCAR, KHALED Attending Unavailable SHERMAN LARSON Primary Care Unavailable ЮЛИЯ ODOM Referring Unavailabl e SHERMAN LARSON Primary Care Unavailable DO Sherman Larson Primary Care Provider [phone] DO Sherman Larson Attending Provider [phone] WALTER Poole Attending Provider WALTER Dumont Other Provider [phone] WALTER Poole Attending Provider [phone] DO Sherman Larson Primary Care Provider DO Sherman Larson Attending Provider [phone] Self, Referral Attending Provider Unavailable DO Sherman Larson Primary Care Provider WALTER Poole Attending Provider Self, Referral Attending Provider Unavailable DO Sherman Larson Attending Provider Eli, QUALITY CONTROL TECH [employer] Judith A Attending Provider [phone] Eli, Judith A Admitting Unavailable Eli, Judith [...] Admitting Unavailable Self, Referral Attending Unavailable Kuns, Shemran Primary Care Unavailable Kuns, Sherman Admitting Unavailable [...] 300 mg by mouth once daily [place] Active 300 MG PO Daily March 24, [...] Drug Class(es) Dates Sig (Normalized) Sig (Original) [id number] 200 actuat albuterol 0.09 mg/actuat metered dose [...] sources) Long-term current use of insulin; 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] Episodic Other aftercare (7 sources) 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 Onset: 09-10-2021 Resolved: [...] Test Name Value Interpretation Reference Range Facility [facility] 11-04-2023 [facility] Visit (SP) Office (GYNML) MAGY CASTRO ([id number]) 1955 F Date Time Provider Department 11/04/23 12:45 PM ЮЛИЯ ODOM [facility] During your visit today, we recorded the following information about you: Temperature Pulse Respiration Blood pressure 96.8 degrees 69/minute 15/minute 140/73 Юлия Odom APRN.DRYWALL PROFESSIONAL 11/07/2023 9:54 AM Signed DATE: 11/04/2023 PROBLEM: [...] present, cervix not involved HNPCC screening negative ER/[place]: negative 2. Chemotherapy with Carboplatin and taxol [...] 06/2016 Pancre (more content not included)... Normal [facility] Superficial Wound Cultureon 09-15-2023 Superficial Wound [...] RESISTANT TO ALL B-LACTAM DRUGS. PERFORMED BY: [place] [id number] [place] [id number] PATHOLOGIST DINING ROOM SERVER LOCO PERRY M.D. Normal [facility] Comment on above: Performed By: #### C USUP #### [facility] [address] [place] [address] [facility] A1C HEMOGLOBINon 09-09-2023 HbA1c (Bld) [Mass fraction] 8.3 % [facility] FOLUP Other Glucose - FINGER STICKon Glucose [Mass/Vol] 175 mg/dL [facility] FOLUP Other HbA1c (Bld) [Mass fraction]o n 09-09-2023 A1C HEMOGLOBIN [facility] FOLUP Other MM screening mammo BI w/CADo n 07-15-2023 MM screening mammo BI w/CAD [facility] Main [place] [address] [place] [id number] Mammography Report Signed Patient: Magy Castro MR#: [id number] : 1955 Acct:[id number] Age/Sex: 67 / F ADM Date: 07/15/23 Loc: [place] Room: Type: [facility] Attending Dr: Referral Self Copies to: [...] Jennifer Yarbrough M.D.07/15/2023 2:50 PM Dictation Location: [facility] Transcribed By: SAL 07/15/23 145 Dictated By: Jennifer Yarbrough MD 07/15/23 144 Signed By: 07/15/23 145 Normal [facility] Alanine aminotransferase [En zymatic activity/volume] in Serum or PlasmaOrdered By: Sherman Larson on 03-31-2023 ALT [Catalytic activity/Vol] 17 U/L 7-52 [facility] Albumin [Mass/volume] in Ser um or Plasma by Bromocresol green (BCG) dye binding methoOrdered By: Sherman Larson on 03-31-2023 Albumin BCG dye [Mass/Vol] 4.1 g/dL 3.5-5.7 [facility] Alkaline phosphatase [Enzyma tic activity/volume] in Serum or PlasmaOrdered By: Sherman Larson on 03-31-2023 ALP [Catalytic activity/Vol] 55 U/L 34-104 [facility] Aspartate aminotransferase [ Enzymatic activity/volume] in Serum or PlasmaOrdered By: Sherman Larson on 03-31-2023 AST [Catalytic activity/Vol] 14 U/L 13-39 [facility] Basophils Auto (Bld) [#/Vol] Ordered By: Sherman Larson on 03-31-2023 Basophils (Bld) [#/Vol] 0.0 10*3/uL 0.0-0.2 [facility] Basophils/100 WBC Auto (Bld) Ordered By: Sherman Larson on 03-31-2023 Basophils/100 WBC (Bld) 0.6 % . [facility] Bilirubin.total [Mass/volume ] in Serum or PlasmaOrdered By: Sherman Larson on 03-31-2023 Bilirubin [Mass/Vol] 0.5 mg/dL 0.3-1.0 [facility] Calcium [Mass/volume] in Ser um or PlasmaOrdered By: Sherman Larson on 03-31-2023 Calcium [Mass/Vol] 9.2 mg/dL 8.6-10.3 [facility] Carbon dioxide, total [Moles /volume] in Serum or PlasmaOrdered By: hSerman Larson on 03-31-2023 CO2 [Moles/Vol] 24.9 mmol/L 21.0-31.0 [facility] Chloride [Moles/volume] in [place] or PlasmaOrdered By: Sherman Larson on 03-31-2023 Chloride [Moles/Vol] 103 mmol/L 98-107 [facility] Cholesterol [Mass/volume] in Serum or PlasmaOrdered By: Sherman Larson on 03-31-2023 Cholesterol [Mass/Vol] 144 mg/dL 140-200 [facility] Comment on above: Chol less than 200 m g/dl low riskChol 201-239 mg/dl borderline riskChol 240 mg/dl and greater high risk Cholesterol in LDL Calc [Mas s/Vol]Ordered By: Sherman Larson on 03-31-2023 Cholesterol in LDL [Mass/Vol] 61 mg/dL 0-100 [facility] Comment on above: LDL ATP III CLASSIFI CATIONLDL less than 100 mg/dL OptimalLDL 100-129 mg/dL Near or above optimalLDL 130-159 mg/dL Borderline highLDL 160-189 mg/dL HighLDL greater than 189 mg/dL Very high Cholesterol in VLDL Calc [Ma ss/Vol]Ordered By: Sherman Larson on 03-31-2023 Cholesterol in VLDL [Mass/Vol] 43 mg/dL [facility] Complete Blood Count Auto Di ffon 03-31-2023 Basophils (Bld) [#/Vol] 0.0 10*3/uL Normal 0.0-0.2 [facility] Comment on above: Order Comment: Reaso n for Exam Hyperlipidemia Result Comment: PERF ORMED BY: [place] [address] PATHOLOGIST DINING ROOM SERVER LOCO PERRY M.D. Performed By: #### C BC #### [facility] [address] [place] [address] [place] Basophils/100 WBC (Bld) 0.6 % Normal . F [facility] Comment on above: Order Comment: Reaso n for Exam Hyperlipidemia Performed By: #### C BC #### [address] Eosinophils (Bld) [#/Vol] 0.1 10*3/uL Normal 0.0-0.45 [facility] Comment on above: Order Comment: Reaso n for Exam Hyperlipidemia Performed By: #### C BC #### [address] Eosinophils/100 WBC (Bld) 2.0 % Normal . [facility] Comment on above: Order Comment: Reaso n for Exam Hyperlipidemia Performed By: #### C BC #### [address] Erythrocyte distribution width (RBC) [Ratio] 17.0 % High 11.9-15.3 [facility] Comment on above: Order Comment: Reaso n for Exam Hyperlipidemia Performed By: #### C BC #### [address] Hematocrit (Bld) [Volume fraction] 43.0 % Normal 34.0-46.4 [facility] Comment on above: Order Comment: Reaso n for Exam Hyperlipidemia Performed By: #### C BC #### [address] Hemoglobin (Bld) [Mass/Vol] 13.9 g/dL Normal 11.8-15.4 [facility] Comment on above: Order Comment: Reaso n for Exam Hyperlipidemia Performed By: #### C BC #### [place] [address] [place] Lymphocytes (Bld) [#/Vol] 1.8 10*3/uL Normal 1.00-4.8 [facility] Comment on above: Order Comment: Reaso n for Exam Hyperlipidemia Performed By: #### C BC #### [place] [address] [place] Lymphocytes/100 WBC (Bld) 25.6 % Normal . [facility] Comment on above: Order Comment: Reaso n for Exam Hyperlipidemia Performed By: #### C BC #### [address] MCH (RBC) [Entitic mass] 26.9 pg Normal 24.7-34.3 [facility] Comment on above: Order Comment: Reaso n for Exam Hyperlipidemia Performed By: #### C BC #### [facility] [address] MCV (RBC) [Entitic vol] 82.9 fL Normal 80-100 [facility] Comment on above: Order Comment: Reaso n for Exam Hyperlipidemia Performed By: #### C BC #### [facility] [address] Mean Corpuscular HGB Conc 32.4 g/dL Normal 32.0-35.0 [facility] Comment on above: Order Comment: Reaso n for Exam Hyperlipidemia Performed By: #### C BC #### [facility] [address] Monocytes (Bld) [#/Vol] 0.5 10*3/uL Normal 0.0-0.8 [facility] Comment on above: Order Comment: Reaso n for Exam Hyperlipidemia Performed By: #### C BC #### [place] [address] [place] Monocytes/100 WBC (Bld) 7.5 % Normal . F [facility] Comment on above: Order Comment: Reaso n for Exam Hyperlipidemia Performed By: #### C BC #### [place] [address] [place] Neutrophils (Bld) [#/Vol] 4.6 10*3/uL Normal 1.8-7.7 [facility] Comment on above: Order Comment: Reaso n for Exam Hyperlipidemia Performed By: #### C BC #### [facility] [address] [place] [address] [place] Neutrophils/100 WBC (Bld) 64.3 % Normal . [facility] Comment on above: Order Comment: Reaso n for Exam Hyperlipidemia Performed By: #### C BC #### [facility] [address] [place] [address] [place] NRBC% 0.1 /100{WBC} Normal 0-0.5 [facility] Comment on above: Order Comment: Reaso n for Exam Hyperlipidemia Performed By: #### C BC #### [facility] [address] Platelet mean volume (Bld) [Entitic vol] 7.4 fL Normal 6.3-10.7 [facility] Comment on above: Order Comment: Reaso n for Exam Hyperlipidemia Performed By: #### C BC #### [facility] [address] Platelets (Bld) [#/Vol] 298 10*3/uL Normal 150-450 [facility] Comment on above: Order Comment: Reaso n for Exam Hyperlipidemia Performed By: #### C BC #### [address] RBC (Bld) [#/Vol] 5.19 10*6/uL High 3.60-5.00 [facility] Comment on above: Order Comment: Reaso n for Exam Hyperlipidemia Performed By: #### C BC #### [address] WBC (Bld) [#/Vol] 7.2 10*3/uL Normal 3.8-11.6 [facility] Comment on above: Order Comment: Reaso n for Exam Hyperlipidemia Performed By: #### C BC #### [address] Comprehensive Metabolic Pane riaz 03-31-2023 Albumin [Mass/Vol] 4.1 g/dL Normal 3.5-5.7 [facility] Comment on above: Order Comment: Reaso n for Exam Hyperlipidemia Performed By: #### C MP, LIPID #### [address] Albumin/Globulin [Mass ratio] 1.3 {ratio} Normal [facility] Comment on above: Order Comment: Reaso n for Exam Hyperlipidemia Performed By: #### C MP, LIPID #### [facility] [address] [place] [address] ALP [Catalytic activity/Vol] 55 U/L Normal 34-104 [facility] Comment on above: Order Comment: Reaso n for Exam Hyperlipidemia Performed By: #### C MP, LIPID #### [facility] [address] ALT [Catalytic activity/Vol] 17 U/L Normal 7-52 [facility] Comment on above: Order Comment: Reaso n for Exam Hyperlipidemia Performed By: #### C MP, LIPID #### [facility] [address] [place] [address] Anion gap [Moles/Vol] 12.2 mmol/L Normal 6.0-15.0 [facility] Comment on above: Order Comment: Reaso n for Exam Hyperlipidemia Performed By: #### C MP, LIPID #### [facility] [address] [place] [address] AST [Catalytic activity/Vol] 14 U/L Normal 13-39 [facility] Comment on above: Order Comment: Reaso n for Exam Hyperlipidemia Performed By: #### C MP, LIPID #### [facility] [address] [place] [address] Bilirubin [Mass/Vol] 0.5 mg/dL Normal 0.3-1.0 [facility] Comment on above: Order Comment: Reaso n for Exam Hyperlipidemia Performed By: #### C MP, LIPID #### [facility] [address] [place] [address] Calcium [Mass/Vol] 9.2 mg/dL Normal 8.6-10.3 [facility] Comment on above: Order Comment: Reaso n for Exam Hyperlipidemia Performed By: #### C MP, LIPID #### [facility] [address] [place] [address] [place] Chloride [Moles/Vol] 103 mmol/L Normal 98-107 [facility] Comment on above: Order Comment: Reaso n for Exam Hyperlipidemia Performed By: #### C MP, LIPID #### [facility] [address] [place] [address] CO2 [Moles/Vol] 24.9 mmol/L Normal 21.0-31.0 [facility] Comment on above: Order Comment: Reaso n for Exam Hyperlipidemia Performed By: #### C MP, LIPID #### [facility] [address] Creatinine [Mass/Vol] 0.68 mg/dL Normal 0.60-1.20 [facility] Comment on above: Order Comment: Reaso n for Exam Hyperlipidemia Performed By: #### C MP, LIPID #### [facility] [address] [place] [address] GFR/1.73 sq M.predicted MDRD (S/P/Bld) [Vol rate/Area] mL/min/{1.73_m2} Normal [facility] Comment on above: Order Comment: Reaso n for Exam Hyperlipidemia Performed By: #### C MP, LIPID #### [facility] [address] [place] [address] Globulin (S) [Mass/Vol] 3.1 g/dL Normal [facility] Comment on above: Order Comment: Reaso n for Exam Hyperlipidemia Performed By: #### C MP, LIPID #### [address] Glucose [Mass/Vol] 139 mg/dL High 70-100 [facility] Comment on above: Order Comment: Reaso n for Exam Hyperlipidemia Result Comment: [place] Glucose Reference Range is dependent on time and content of last meal. Glucose of more than 200 mg/dL in a nonstressed, ambulatory subject supports the diagnosis of Diabetes Mellitus. ADA recommended reference range Performed By: #### C MP, LIPID #### [facility] [address] [place] [address] Potassium [Moles/Vol] 4.1 mmol/L Normal 3.5-5.1 [facility] Comment on above: Order Comment: Reaso n for Exam Hyperlipidemia Performed By: #### C MP, LIPID #### [facility] [address] [place] [address] Protein [Mass/Vol] 7.2 g/dL Normal 6.4-8.9 [facility] Comment on above: Order Comment: Reaso n for Exam Hyperlipidemia Performed By: #### C MP, LIPID #### [address] Sodium [Moles/Vol] 136 mmol/L Normal 136-145 [facility] Comment on above: Order Comment: Reaso n for Exam Hyperlipidemia Performed By: #### C MP, LIPID #### [facility] [address] [place] [address] [place] Urea nitrogen [Mass/Vol] 19 mg/dL Normal 7-25 [facility] Comment on above: Order Comment: Reaso n for Exam Hyperlipidemia Performed By: #### C MP, LIPID #### [facility] [address] [place] [address] [place] Creatinine [Mass/volume] in Serum or PlasmaOrdered By: Sherman Larson on 03-31-2023 Creatinine [Mass/Vol] 0.68 mg/dL 0.60-1.20 [facility] Creatinine [Mass/volume] in UrineOrdered By: Rosanne Dumont on 03-31-2023 Creatinine (U) [Mass/Vol] 70.0 mg/dL 11.0-20.0 [facility] Eosinophils Auto (Bld) [#/Vo l]Ordered By: Sherman Larson on 03-31-2023 Eosinophils (Bld) [#/Vol] 0.1 10*3/uL 0.0-0.45 [facility] Eosinophils/100 WBC Auto (Bl d)Ordered By: Sherman Larson on 03-31-2023 Eosinophils/100 WBC (Bld) 2.0 % . [facility] Erythrocyte distribution wid th Auto (RBC) [Ratio]Ordered By: Sherman Larson on 03-31-2023 Erythrocyte distribution width (RBC) [Ratio] 17.0 % 11.9-15.3 [facility] Globulin Calc (S) [Mass/Vol] Ordered By: Sherman Larson on 03-31-2023 Globulin (S) [Mass/Vol] 3.1 g/dL F [facility] Glucose [Mass/volume] in Ser um or PlasmaOrdered By: Sherman Larson on 03-31-2023 Glucose [Mass/Vol] 139 mg/dL 70-100 [facility] Comment on above: ADA recommended refe rence rangeRandom Glucose Reference Range is dependent on time and content of last meal. Glucose of more than 200 mg/dL in a nonstressed, ambulatory subject supports the diagnosis of Diabetes Mellitus. Hematocrit Auto (Bld) [Volum e fraction]Ordered By: Sherman Larson on 03-31-2023 Hematocrit (Bld) [Volume fraction] 43.0 % 34.0-46.4 [facility] Hemoglobin [Mass/volume] in BloodOrdered By: Sherman Larson on 03-31-2023 Hemoglobin (Bld) [Mass/Vol] 13.9 g/dL 11.8-15.4 [facility] Leukocytes [#/volume] correc ekdar for nucleated erythrocytes in Blood by Automated counOrdered By: Sherman Larson on 03-31-2023 WBC corrected for nucl RBC Auto (Bld) [#/Vol] 7.2 10*3/uL 3.8-11.6 [facility] Lipid Panelon 03-31-2023 Cholesterol [Mass/Vol] 144 mg/dL Normal 140-200 [facility] Comment on above: Order Comment: Reaso n for Exam Hyperlipidemia Result Comment: Chol less than 200 mg/dl low risk Chol 201-239 mg/dl borderline risk Chol 240 mg/dl and greater high risk Performed By: #### C MP, LIPID #### [facility] [address] [place] [address] Cholesterol in HDL [Mass/Vol] 39 mg/dL Normal 23-92 [facility] Comment on above: Order Comment: Reaso n for Exam Hyperlipidemia Result Comment: HDL CHOL ATP-III CLASSIFICATION Cardiovascular Risk HDL > or equal to 60 mg/dL LOW HDL < 40 mg/dL HIGH Performed By: #### C MP, LIPID #### [facility] [address] [place] [address] Cholesterol.total/Zahra sterol in HDL [Mass ratio] 3.7 {ratio} Normal <5.0 [facility] Comment on above: Order Comment: Reaso n for Exam Hyperlipidemia Result Comment: PERF ORMED BY: [place] [address] PATHOLOGIST DINING ROOM SERVER LOCO PERRY M.D. Performed By: #### C MP, LIPID #### [facility] [address] LDL Cholesterol,Calculated 61 mg/dL Normal 0-100 [facility] Comment on above: Order Comment: Reaso n for Exam Hyperlipidemia Result Comment: LDL ATP III CLASSIFICATION LDL less than 100 mg/dL Optimal LDL 100-129 mg/dL Near or above optimal LDL 130-159 mg/dL Borderline high LDL 160-189 mg/dL High LDL greater than 189 mg/dL Very high Performed By: #### C MP, LIPID #### [facility] [address] Triglyceride w/Reflex 218 mg/dL High 0-149 [facility] Comment on above: Order Comment: Reaso n for Exam Hyperlipidemia Result Comment: TRIG ATP III CLASSIFICATION TRIG less than 150 mg/dL Normal TRIG 150-199 mg/dL Borderline high TRIG 200-500 mg/dL High TRIG greater than 500 mg/dL Very high Standard traceable to the Center for Disease Conrtrol and Prevention (CDC) test method. Performed By: #### C MP, LIPID #### [facility] [address] VLDL CHOLESTEROL 43 mg/dL Normal [facility] Comment on above: Order Comment: Reaso n for Exam Hyperlipidemia Performed By: #### C MP, LIPID #### [facility] [address] Lymphocytes Auto (Bld) [#/Vo l]Ordered By: Sherman Larson on 03-31-2023 Lymphocytes (Bld) [#/Vol] 1.8 10*3/uL 1.00-4.8 [facility] Lymphocytes/100 WBC Auto (Bl d)Ordered By: Sherman Larson on 03-31-2023 Lymphocytes/100 WBC (Bld) 25.6 % . [facility] MCH Auto (RBC) [Entitic mass ]Ordered By: Sherman Larson on 03-31-2023 MCH (RBC) [Entitic mass] 26.9 pg 24.7-34.3 [facility] MCHC Auto (RBC) [Mass/Vol]Or dered By: Sherman Larson on 03-31-2023 MCHC (RBC) [Mass/Vol] 32.4 g/dL 32.0-35.0 [facility] MCV Auto (RBC) [Entitic vol] Ordered By: Sherman Larson on 03-31-2023 MCV (RBC) [Entitic vol] 82.9 fL 80-100 [facility] MicroAlb Creat Ratio,Uon Albumin DL <= 20 mg/L (U) [Mass/Vol] 0.9 mg/dL Normal 0.0-1.8 [facility] Comment on above: Order Comment: Reaso n for Exam Type 2 diabetes mellitus Performed By: #### B 12, URMACRERAT #### [facility] [address] Creatinine, Urine (Random) 70.0 mg/dL High 11.0-20.0 [facility] Comment on above: Order Comment: Reaso n for Exam Type 2 diabetes mellitus Performed By: #### B 12, URMACRERAT #### [facility] [address] Microalbumin/Creatinine Ratio 12.0 mg/g Normal 0.0-30.0 [facility] Comment on above: Order Comment: Reaso n for Exam Type 2 diabetes mellitus Result Comment: 30-3 00 mg/g indicates an increased risk for diabetic nephropathy. Greater than 300 mg/g is consistent with clinical nephropathy. (Am. J. Kidney Disease 1995, 25:107) PERFORMED BY: [place] [address] PATHOLOGIST DINING ROOM SERVER LOCO PERRY M.D. Performed By: #### B 12, URMACRERAT #### [facility] [address] [place] [id number] [facility] Microalbumin [Mass/volume] i n UrineOrdered By: Rosanne Dumont on 03-31-2023 Albumin DL <= 20 mg/L (U) [Mass/Vol] 0.9 mg/dL 0.0-1.8 [facility] Monocytes Auto (Bld) [#/Vol] Ordered By: Sherman Larson on 03-31-2023 Monocytes (Bld) [#/Vol] 0.5 10*3/uL 0.0-0.8 [facility] Monocytes/100 WBC Auto (Bld) Ordered By: Sherman Larson on 03-31-2023 Monocytes/100 WBC (Bld) 7.5 % . F [facility] Neutrophils Auto (Bld) [#/Vo l]Ordered By: Sherman Larson on 03-31-2023 Neutrophils (Bld) [#/Vol] 4.6 10*3/uL 1.8-7.7 [facility] Neutrophils/100 WBC Auto (Bl d)Ordered By: Sherman Larson on 03-31-2023 Neutrophils/100 WBC (Bld) 64.3 % . [facility] No Panel InformationOrdered By: Sherman Larson on 03-31-2023 Estimated GFR (CKD-EPI) > 60.0 mL/Min [facility] Creatinine Clearance (Chem N/A [facility] Nucleated erythrocytes [Pres ence] in Blood by Automated countOrdered By: Sherman Larson on 03-31-2023 Nucleated RBC Auto Ql (Bld) 0.1 /100{WBC} 0-0.5 [facility] Platelet mean volume Auto (B ld) [Entitic vol]Ordered By: Sherman Larson on 03-31-2023 Platelet mean volume (Bld) [Entitic vol] 7.4 fL 6.3-10.7 [facility] Platelets Auto (Bld) [#/Vol] Ordered By: Sherman Larson on 03-31-2023 Platelets (Bld) [#/Vol] 298 10*3/uL 150-450 [facility] Potassium [Moles/volume] in Serum or PlasmaOrdered By: Sherman Larson on 03-31-2023 Potassium [Moles/Vol] 4.1 mmol/L 3.5-5.1 [facility] Protein [Mass/volume] in Ser um or PlasmaOrdered By: Sherman Larson on 03-31-2023 Protein [Mass/Vol] 7.2 g/dL 6.4-8.9 [facility] RBC Auto (Bld) [#/Vol]Ordere d By: Sherman Larson on 03-31-2023 RBC (Bld) [#/Vol] 5.19 10*6/uL 3.60-5.00 [facility] Serum or plasma albumin/glob ulin mass ratioOrdered By: Sherman Larson on 03-31-2023 Albumin/Globulin [Mass ratio] 1.3 {ratio} [facility] Serum or plasma anion gap de terminationOrdered By: Sherman Larson on 03-31-2023 Anion gap [Moles/Vol] 12.2 mmol/L 6.0-15.0 [facility] Serum or plasma high density lipoprotein (HDL) cholesterol measurementOrdered By: Sherman Larson on 03-31-2023 Cholesterol in HDL [Mass/Vol] 39 mg/dL 23-92 [facility] Comment on above: HDL CHOL ATP-III CLA SSIFICATION Cardiovascular RiskHDL > or equal to 60 mg/dL LOWHDL < 40 mg/dL HIGH Serum or plasma total choles terol/high density lipoprotein (HDL) cholesterol mass ratOrdered By: Sherman Larson on 03-31-2023 Cholesterol.total/Zahra sterol in HDL [Mass ratio] 3.7 {ratio} <5.0 [facility] Sodium [Moles/volume] in Ser um or PlasmaOrdered By: Sherman Larson on 03-31-2023 Sodium [Moles/Vol] 136 mmol/L 136-145 [facility] Thyroid Stimulating Hormoneo n 03-31-2023 TSH Qn 2.43 m[IU]/L Normal 0.45-5.33 [facility] Comment on above: Order Comment: Reaso n for Exam Hyperlipidemia Result Comment: PERF ORMED BY: [place] [address] PATHOLOGIST DINING ROOM SERVER LOCO PERRY M.D. Performed By: #### T SH3 #### [address] Thyrotropin [Units/volume] i n Serum or PlasmaOrdered By: Sheramn Larson on 03-31-2023 TSH Qn 2.43 m[IU]/L 0.45-5.33 [facility] Triglyceride [Mass/volume] i n Serum or PlasmaOrdered By: Sherman Larson on 03-31-2023 Triglyceride [Mass/Vol] 218 mg/dL 0-149 [facility] Comment on above: TRIG ATP III CLASSIF ICATIONTRIG less than 150 mg/dL NormalTRIG 150-199 mg/dL Borderline highTRIG 200-500 mg/dL High TRIG greater than 500 mg/dL Very highStandard traceable to the Center for Disease Conrtrol and Prevention (CDC) test method. Urea nitrogen [Mass/volume] in Serum or PlasmaOrdered By: Sherman Larson on 03-31-2023 Urea nitrogen [Mass/Vol] 19 mg/dL 05-05 [facility] Urine microalbumin/creatinin e mass ratioOrdered By: Rosanne Dumont on 03-31-2023 Albumin/Creatinine DL <= 20 mg/L (U) [Mass ratio] 12.0 mg/g 0.0-30.0 [facility] Comment on above: 30-300 mg/g indicate s an increased risk for diabetic nephropathy. Greater than 300 mg/g is consistent with clinical nephropathy. (Am. J. Kidney Disease 1995, 25:107) Vitamin B12on 03-31-2023 Cobalamin (Vitamin B12) [Mass/Vol] 221 pg/mL Normal 180-914 [facility] Comment on above: Order Comment: Reaso n for Exam Type 2 diabetes mellitus;B12 deficiency Result Comment: PERF ORMED BY: [place] [address] PATHOLOGIST DINING ROOM SERVER LOCO PERRY M.D. Performed By: #### B 12, URMACRERAT #### [address] Vitamin B12 ser/plasOrdered By: Rosanne Dumont on 03-31-2023 Cobalamin (Vitamin B12) [Mass/Vol] 221 pg/mL 180-914 [facility] WBC Auto (Bld) [#/Vol]Ordere d By: Sherman Larson on 03-31-2023 WBC (Bld) [#/Vol] 7.2 10*3/uL 3.8-11.6 [facility] ANES POSTPROC EVALon 023 ANES POSTPROC EVAL HNO ID: [id number] Author: Mavis Acuna MD Service: Anesthesiology Author Type: Anesthesiologist Type: Anesthesia Postprocedure Evaluation Filed: 02/20/2023 11:09 AM Note Text: POST ANESTHESIA EVALUATION NOTE : 1955 Procedure Summary Date: 02/19/23 Room / Location: [facility] Endoscopy - ENDO Anesthesia Start: 1412 [...] DATE: February 19, 2023 TIME: 1510 CSN: [id number] Normal [facility] ANES PRE-OPon 02-19-2023 ANES PRE-OP HNO ID: [id number] Author: Mavis Acuna MD Service: Anesthesiology Author Type: Anesthesiologist Type: Anesthesia Preprocedure Evaluation Filed: 02/19/2023 1:52 PM Note Text: ANESTHESIOLOGY DAY OF SURGERY NOTE : 1955 Procedure Information Date/Time: 02/19/23 1230 Scheduled providers: Lior Linton MD; SIGRID Neal; Mavis Acuna MD Procedure: EGD - THERAPEUTIC, EUS, OR TUBE INTERVENTIONS Location: [facility] Endoscopy - ENDO Estimated body mass [...] mouth once (more content not included)... Normal [facility] CYTOLOGY NON-GYNon 3 CASE REPORT Normal [facility] Comment on above: Order Comment: Speci men Type: SPECIMEN OBTAINED BY ASPIRATION Ordering Facility: [facility] Address: [address] [place] [address] Result Comment: [facility] Cytology Report Case: [id number] Authorizing Provider: Lior Linton MD Collected: 02/19/2023 02:27 PM Ordering Location: [facility] Received: 02/20/2023 07:02 AM Endoscopy - ENDO Pathologist: Mat Montez MD Specimen: PANCREAS FINE NEEDLE ASPIRATION Performed By: #### C YTONON #### [facility] CLIA [id number] [facility] LABORATORY CLIA [id number] [address] [place] [address] CLINICAL HISTORY Pancreatic cyst Normal [facility] Comment on above: Order Comment: Speci men Type: SPECIMEN OBTAINED BY ASPIRATION Ordering Facility: [facility] Address: [address] [place] [address] Performed By: #### C YTONON #### [facility] CLIA [id number] [facility] [address] LABORATORY CLIA [id number] [address] [place] [address] DIAGNOSIS COMMENT Normal [facility] Comment on above: Order Comment: Speci men Type: SPECIMEN OBTAINED BY ASPIRATION Ordering Facility: [facility] Address: [address] [place] [address] Result Comment: The specimen is limited in cellularity. Immunohistochemical stain for AE1/AE3 is positive. Synaptophysin, chromogranin and inhibin are negative. The immunohistochemical staining pattern supports the above diagnosis. Selected slides were reviewed in consultation with Dr. Oconnor, who concurs. Laboratory Developed Test (LDT) Disclaimer: Performance characteristics of immunohistochemical, immunofluorescent and chromogenic in-situ hybridization tests have been determined by the performing laboratory within [facility]???s Brad Mehta [facility] Pathology and Laboratory Medicine [place] ([facility], [facility], [facility], [facility], [facility], or [facility]) in a manner consistent with CLIA [...] condition. Performed By: #### C YTONON #### [facility] CLIA [id number] [address] [place] [address] LABORATORY CLIA [id number] [address] [place] [address] FINAL DIAGNOSIS [facility] Comment on above: Order Comment: Speci men Type: SPECIMEN OBTAINED BY ASPIRATION Ordering Facility: [facility] Address: [address] [address] Result Comment: A - PANCREAS FINE NEEDLE ASPIRATION Negative for malignant cells. See comment. The following cell blocks were associated with this case: A1 Cell Block, Alcohol Fixed Performed By: #### C YTONON #### [facility] CLIA [id number] [address] [place] [address] LABORATORY CLIA [id number] [address] [place] [address] FINAL PERFORMING LAB Normal [facility] Comment on above: Order Comment: Speci men Type: SPECIMEN OBTAINED BY ASPIRATION Ordering Facility: [facility] Address: [address] [address] Result Comment: Tech nical component, mask designer screening performed at [facility], [address] [place] [address] CLIA# [id number] Diagnostic interpretation performed at [facility], [address] [place] [address] CLIA# [id number] Spray Cementer: Quintin Sal M.D. Performed By: #### C YTONON #### [facility] CLIA [id number] LABORATORY CLIA [id number] [address] [place] [address] GROSS DESCRIPTION Normal [facility] Comment on above: Order Comment: Speci men Type: SPECIMEN OBTAINED BY ASPIRATION Ordering Facility: [facility] Address: [address] [place] [address] Result Comment: Rhea PANCHAL FINE NEEDLE ASPIRATION 30 cc cloudy red CytoLyt with material. ThinPrep and Cell Block prepared. Performed By: #### C YTONON #### [facility] CLIA [id number] [facility] [address] LABORATORY CLIA [id number] [address] [place] [address] OF [facility] EGD - THERAPEUTIC, EUS, OR T UBE INTERVENTIONSon 02-19-2023 [facility] GLUCOSE, BLOOD (POC)on 02-19 Glucose [Mass/Vol] 198 mg/dL Abnormal 74 - 99 mg/dL [facility] Glucose [Mass/Vol] 175 mg/dL Abnormal 74 - 99 mg/dL [facility] NURSING PROGon 02-19-2023 NURSING PROG HNO ID: [id number] Author: Lakhwinder Payan RN Service: Nursing Author [...] [facility] NURSING PROG HNO ID: [id number] Author: Ekta Banegas RN Service: Nursing Author [...] [facility] Gastrointestinal Endoscopy Patient Name: Magy Castro Procedure Date: 02/19/2023 1:57 PM Date of : 1955 Admit Type: Outpatient Age: 67 Room: [place] [address] Gender: Female Note Status: Finalized Attending MD: [...] on cytopathology. Procedure Code(s): --- Professional --- 02885, Esophagogastroduodenos copy, flexible, (more content not included)... Normal [facility] A1C HEMOGLOBINon 02-10-2023 HbA1c (Bld) [Mass fraction] 7.3 % [email or web address] Other Glucose - FINGER STICKon Glucose [Mass/Vol] 167 mg/dL [email or web address] Other HbA1c (Bld) [Mass fraction]o n 02-10-2023 A1C HEMOGLOBIN [facility]OL[facility] Other [facility] 02-04-[address] [facility] Telephone ([facility]) MAGY CASTRO ([id number]) 1955 F Date Time Provider Department 02/04/23 ORVILLE ZAMARRIPA (SAMARIA) [facility] During your visit today, we recorded the following information about you: Orville Zamarripa LPN 02/04/2023 11:44 AM Signed Scanned into patients chart Allergies As of Date: 02/04/2023 (No Known Allergies) Date Reviewed: 02/02/2023 Reviewed by: Christophe Shaffer APRN.DRYWALL PROFESSIONAL - Fully Assessed Reason for Visit: Received [...] by ORVILLE ZAMARRIPA LPN on 02/04/23 Normal [facility] HISTORY PHYSICALon 3 HISTORY PHYSICAL HNO ID: [id number] Author: Christophe Shaffer APRN.DRYWALL PROFESSIONAL Service: ? Author Type: Nurse Practitioner Type: HANDP Filed: 02/04/2023 5:52 PM Note Text: PREANESTHESIA CONSULT CLINIC TELEHEALTH VISIT Patient has been identified by name and date of : Yes This is a virtual visit using [employer] video visit. It require patient-provider interaction for [...] (will be (more content not included)... Normal [facility] Myesha 01-22-2023 RAHEEM Telephone ([place]) MAGY CASTRO ([id number]) 1955 F Date Time Provider Department 01/22/23 LIOR LINTON During your visit today, we recorded the following information about you: Heidi Parson RN 01/22/2023 12:18 PM Signed MRI images available for review. Heidi Parson RN ----- Message ----- From: Heidi Parson RN Sent: 01/13/2023 10:46 AM EDT To: Heidi Parson RN Spoke with pt. She will obtain MRCP disc from [facility] and send to our office. Heidi Parson RN ----- Message ----- From: Lior Linton MD Sent: 01/12/2023 5:41 PM EDT To: MARCEL Love: Please let me know when the MRCP disc is loaded into [facility] for my review. Lior Linton MD 02/03/2023 7:25 AM Signed MRCP images were reviewed. The images were downloaded to [facility] and the MRI was done at [facility]. Agree with the findings of the report. [...] Encounter Status:Closed by HEIDI PARSON on 02/03/23 [facility] CNOVon 01-07-2023 CNOV Office Visit (PAT ) MAGY CASTRO ([id number]) 1955 F Date Time Provider Department 01/07/23 [...] alcohol. 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 Her brother age 51 from pancreatic [...] nursing prot (more content not included)... Normal [facility] HISTORY PHYSICALon HISTORY PHYSICAL HNO ID: [id number] Author: Lior Linton MD Service: ? Author [...] alcohol. 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 Her brother age 51 from pancreatic [...] Enteric Tub (more content not included)... Normal [facility] A1C HEMOGLOBINon 11-04-2022 HbA1c (Bld) [Mass fraction] 7.9 % [email or web address] Other Glucose - FINGER STICKon Glucose [Mass/Vol] 212 mg/dL [facility] Other HbA1c (Bld) [Mass fraction]o n 11-04-2022 A1C HEMOGLOBIN [facility] Other My[place]ha 10-30-2022 [facility] Telephone ([place]) MAGY CASTRO ([id number]) 1955 F Date Time Provider Department 10/30/22 LIOR LINTON During your visit today, we recorded the following information about you: Blanca Norton 10/30/2022 11:15 AM Signed Pt saw Dr. Rowland, at [facility] and was given Dr. Linton's name [...] Date Reviewed: 09/17/2022 Reviewed by: Юлия Odom APRN.[facility] - Fully Assessed Reason for Visit: Orders [111] Prescriptions as of 10/30/2022 - aspirin, enteric [...] Status:Closed by ROMAIN VELA on 10/30/22 Normal [facility] CREATININE [facility] 09-11-2022 Creatinine [Mass/Vol] 0.59 mg/dL Normal 0.58-0.96 [facility] Comment on above: Order Comment: Speci men Type: BLOOD SPECIMENOrdering Facility: [facility] Address: [address] [address] Performed By: #### C RET1 ####[facility] LAB[facility] [id number] [place] [address] ESTIMATED GLOMERULAR FILTRATION RATE 98 mL/min/1.73m??? Normal >=60 [facility] Comment on above: Order Comment: Speci men Type: BLOOD SPECIMENOrdering Facility: [facility] Address: [address] [place] [address] Result Comment: Zoila mated Glomerular Filtration Rate [...] actual GFR. Performed By: #### C RET1 ####[facility] LAB[facility]IA [id number] [place] [address] CT ABD/PEL W IVCONon 12-01-[address] ABD/PEL W IVCON * * *Final Report* * * DATE OF EXAM: Sep 11 2022 10:33AM [facility] 0530 - CT ABD/PEL W IVCON [...] chest CT performed will be reported separately. Healthcare Financial Analyst (topogram) images: No additional findings. IMPRESSION: 1. [...] any questions regarding this interpretation, please call [phone]. If you are unable to reach us at the number above, please feel free to contact [facility] at [phone]. [id number] Normal [facility] CT CHEST W IVCONon 2 CT CHEST W IVCON * * *Final Report* * * DATE OF EXAM: Sep 11 2022 10:33AM [facility] 0539 - CT CHEST W IVCON [...] CT scan report for the abdomen findings. Healthcare Financial Analyst (topogram) images: No additional findings. IMPRESSION: 1. [...] any questions regarding this interpretation, please call [phone]. If you are unable to reach us at the number above, please feel free to contact [facility] at [phone]. [id number] Normal [facility] CNPAllison 08-13-2022 CNPN Telephone (PETSAN) MAGY CASTRO ([id number]) 1955 F Date Time Provider Department 08/13/22 LAVINIA GODFREY During your visit today, we recorded the following information about you: Lavinia Godfrey RN 08/13/2022 10:57 AM Signed Please sign pending Cre order for Magy Castro for upcoming CT with contrast on 09/11/22. Thank you. Lavinia Godfrey RN Allergies As of Date: 08/13/2022 (No Known Allergies) Date Reviewed: 09/19/2021 Reviewed by: Юлия Odom APRN.DRYWALL PROFESSIONAL - Fully Assessed Reason for Visit: Orders [681] Primary Visit Diagnosis:Malignant neoplasm of body of uterus, unspecified site (HCC) [C54.9] Order(s):CREATININE BLD [SQCRET] Order #: [id number] FUTURE Prescriptions as of 08/15/2022 - aspirin, [...] Status:Closed by ЮЛИЯ ODOM on 08/15/22 Normal [facility] A1C HEMOGLOBINon 07-21-2022 HbA1c (Bld) [Mass fraction] 8.2 % [email or web address] Other Glucose - FINGER STICKon Glucose [Mass/Vol] 243 mg/dL [email or web address] Other HbA1c (Bld) [Mass fraction]o n 07-21-2022 A1C HEMOGLOBIN [facility] Other A1C HEMOGLOBINon 04-09-2022 HbA1c (Bld) [Mass fraction] 7.1 % [email or web address] Other Glucose - FINGER STICKon Glucose [Mass/Vol] 253 mg/dL [email or web address] Other HbA1c (Bld) [Mass fraction]o n 04-09-2022 A1C HEMOGLOBIN [facility] Other A1C HEMOGLOBINon 12-18-2021 HbA1c (Bld) [Mass fraction] 7 % [email or web address] Other Glucose - FINGER STICKon Glucose [Mass/Vol] 200 mg/dL [email or web address] Other HbA1c (Bld) [Mass fraction]o n 12-18-2021 A1C HEMOGLOBIN [facility] Other A1C HEMOGLOBINon 09-10-2021 HbA1c (Bld) [Mass fraction] 7.2 % [email or web address] Other Glucose - FINGER STICKon Glucose [Mass/Vol] 247 mg/dL [email or web address] Other HbA1c (Bld) [Mass fraction]o n 09-10-2021 A1C HEMOGLOBIN [facility] Other Vital Signs Date Time Vital Sign Value Performing Clinician Facility 10-19-2023 08:30-0500 Body height 161.29 cm Sherman Larson Other [email or web address] Other 10-19-2023 08:30-0500 Body mass index (BMI) [Ratio] 45.16 kg/m2 Sherman Larson Other [email or web address] Other 10-19-2023 08:30-0500 Body weight 117.48 kg Sherman Larson Other [email or web address] Other 10-19-2023 08:30-0500 Diastolic blood pressure 70 mm[Hg] Sherman Larson Other [email or web address] Other 10-19-2023 08:30-0500 Respiratory rate 18 /min Sherman Larson Other [email or web address] Other 10-19-2023 08:30-0500 SaO2% (BldA) [Mass fraction] 98 % Sherman Larson Other [email or web address] Other 10-19-2023 08:30-0500 Systolic blood pressure 126 mm[Hg] Sherman Larson Other [email or web address] Other 09-09-2023 09:45-0500 Body height 161.29 cm Tondra Mapus Other [email or web address] Other 09-09-2023 09:45-0500 Body mass index (BMI) [Ratio] 45.97 kg/m2 Tondra Mapus Other [email or web address] Other 09-09-2023 09:45-0500 Body weight 119.61 kg Tondra Mapus Other [email or web address] Other 09-09-2023 09:45-0500 Diastolic blood pressure 75 mm[Hg] Tondra Mapus Other [email or web address] Other 09-09-2023 09:45-0500 Respiratory rate 18 /min Tondra Mapus Other [email or web address] Other 09-09-2023 09:45-0500 SaO2% (BldA) [Mass fraction] 97 % Tondra Dumont Other [facility] Other 09-09-2023 09:45-0500 Systolic blood pressure 116 mm[Hg] Tona Tejasus Other [facility] Other 06-29-2023 09:36-0400 Body height 160.02 cm DO Sherman Larson Work Phone: [facility] 06-29-2023 09:36-0400 Body mass index (BMI) [Ratio] 46 kg/m2 DO Sherman Rothmans Work Phone: [facility] 06-29-2023 09:36-0400 Body weight 117.93 kg DO Sherman Larson Work Phone: [facility] 06-29-2023 09:30-0400 Body temperature 97.6 [degF] DO Sherman Larson Work Phone: [facility] 06-29-2023 09:30-0400 Diastolic blood pressure 70 mm[Hg] DO Shermanleonor Rothmans Work Phone: [facility] 06-29-2023 09:30-0400 Heart rate 92 /min DO Sherman Rothmans Work Phone: [facility] 06-29-2023 09:30-0400 Respiratory rate 20 /min DO Sherman Rothmans Work Phone: [facility] 06-29-2023 09:30-0400 Systolic blood pressure 145 mm[Hg] DO Sherman Reys Work Phone: [facility] 04-30-2023 09:07-0400 Body height 162.56 cm DO Shermanleonor Rothmans Work Phone: [facility] 04-30-2023 09:07-0400 Body mass index (BMI) [Ratio] 44.6 kg/m2 DO Sherman Kuns Work Phone: [facility] 04-30-2023 09:07-0400 Body weight 117.93 kg DO Sherman Kuns Work Phone: [facility] 04-30-2023 08:58-0400 Body temperature 97.7 [degF] DO Sherman Kuns Work Phone: [facility] 04-30-2023 08:58-0400 Diastolic blood pressure 89 mm[Hg] DO Sherman Kuns Work Phone: [facility] 04-30-2023 08:58-0400 Heart rate 88 /min DO Sherman Kuns Work Phone: [facility] 04-30-2023 08:58-0400 Respiratory rate 18 /min DO Sherman Kuns Work Phone: [facility] 04-30-2023 08:58-0400 Systolic blood pressure 113 mm[Hg] DO Sherman Kuns Work Phone: [facility] 03-30-2023 09:02-0400 Body temperature 97.8 [degF] DO Sherman Kuns Work Phone: [facility] 03-30-2023 09:02-0400 Diastolic blood pressure 79 mm[Hg] DO Sherman Kuns Work Phone: [facility] 03-30-2023 09:02-0400 Heart rate 97 /min DO Sherman Kuns Work Phone: [facility] 03-30-2023 09:02-0400 Respiratory rate 20 /min DO Sherman Kuns Work Phone: [facility] 03-30-2023 09:02-0400 Systolic blood pressure 138 mm[Hg] DO Sherman Kuns Work Phone: [facility] 03-25-2023 14:58-0400 Body height 162.56 cm DO Sherman Kuns Work Phone: [facility] 03-25-2023 14:58-0400 Body mass index (BMI) [Ratio] 44.6 kg/m2 DO Sherman Larson Work Phone: [facility] 03-25-2023 14:58-0400 Body weight 117.93 kg DO Sherman Larson Work Phone: [facility] 02-19-2023 15:15-0400 Diastolic blood pressure 58 mm[Hg] Lior Linton MD Work Phone: [facility] 02-19-2023 15:15-0400 Heart rate 85 /min Lior Linton MD Work Phone: [facility] 02-19-2023 15:15-0400 Respiratory rate 16 /min Lior Linton MD Work Phone: [facility] 02-19-2023 15:15-0400 SaO2% (BldA) [Mass fraction] 99 % Lior Linton MD Work Phone: [facility] 02-19-2023 15:15-0400 Systolic blood pressure 132 mm[Hg] Lior Linton MD Work Phone: [facility] 02-19-2023 14:44-0400 Body temperature 96.8 [degF] Lior Linton MD Work Phone: [facility] 02-10-2023 10:15-0400 Body height 161.29 cm Marceloa Tejasus Other [email or web address] Other 02-10-2023 10:15-0400 Body mass index (BMI) [Ratio] 46.2 kg/m2 Tondra Mapus Other [email or web address] Other 02-10-2023 10:15-0400 Body weight 120.2 kg Tondra Mapus Other [email or web address] Other 02-10-2023 10:15-0400 Diastolic blood pressure 77 mm[Hg] Tondra Mapus Other [email or web address] Other 02-10-2023 10:15-0400 Respiratory rate 18 /min Tondra Mapus Other [email or web address] Other 02-10-2023 10:15-0400 SaO2% (BldA) [Mass fraction] 98 % Tondra Mapus Other [email or web address] Other 02-10-2023 10:15-0400 Systolic blood pressure 138 mm[Hg] Tondra Mapus Other [email or web address] Other 02-02-2023 08:26-0400 Body height 161.3 cm [facility] 02-02-2023 08:26-0400 Body weight 117.94 kg [facility] 01-07-2023 09:51-0400 Body weight 120.2 kg Lior Linton MD Work Phone: [facility] 01-07-2023 09:51-0400 Diastolic blood pressure 86 mm[Hg] Lior Linton MD Work Phone: [facility] 01-07-2023 09:51-0400 Heart rate 91 /min Lior Linton MD Work Phone: [facility] 01-07-2023 09:51-0400 Systolic blood pressure 156 mm[Hg] Lior Linton MD Work Phone: [facility] 11-04-2022 10:15-0500 Body height 161.29 cm Tondra Mapus Other [email or web address] Other 11-04-2022 10:15-0500 Body mass index (BMI) [Ratio] 45.84 kg/m2 Tondra Mapus Other [email or web address] Other 11-04-2022 10:15-0500 Body weight 119.25 kg Tondra Mapus Other [email or web address] Other 11-04-2022 10:15-0500 Diastolic blood pressure 63 mm[Hg] Tondra Mapus Other [email or web address] Other 11-04-2022 10:15-0500 Respiratory rate 18 /min Tondra Mapus Other [email or web address] Other 11-04-2022 10:15-0500 SaO2% (BldA) [Mass fraction] 97 % Tondra Mapus Other [email or web address] Other 11-04-2022 10:15-0500 Systolic blood pressure 138 mm[Hg] Tondra Mapus Other [email or web address] Other 09-24-2022 09:45-0500 Body height 161.29 cm Sherman Larson Other [email or web address] Other 09-24-2022 09:45-0500 Body mass index (BMI) [Ratio] 45.57 kg/m2 Sherman Larson Other [email or web address] Other 09-24-2022 09:45-0500 Body weight 118.57 kg Sherman Larson Other [employer] Other 09-24-2022 09:45-0500 Diastolic blood pressure 62 mm[Hg] Sherman Larson Other [employer] Other 09-24-2022 09:45-0500 Respiratory rate 16 /min Sherman Larson Other [email or web address] Other 09-24-2022 09:45-0500 SaO2% (BldA) [Mass fraction] 96 % Sherman Larson Other [email or web address] Other 09-24-2022 09:45-0500 Systolic blood pressure 124 mm[Hg] Sherman Larson Other [email or web address] Other 09-17-2022 09:43-0500 Body temperature 97.59 [degF] Юлия Odom BENCH ASSEMBLY INSPECTOR.DRYWALL PROFESSIONAL Work Phone: [facility] 09-17-2022 09:43-0500 Body weight 120.2 kg Юлия Odom BENCH ASSEMBLY INSPECTOR.DRYWALL PROFESSIONAL Work Phone: [facility] [facility] 09-17-2022 09:43-0500 Diastolic blood pressure 55 mm[Hg] Юлия Odom BENCH ASSEMBLY INSPECTOR.DRYWALL PROFESSIONAL Work Phone: [facility] 09-17-2022 09:43-0500 Heart rate 81 /min Юлия Odom BENCH ASSEMBLY INSPECTOR.DRYWALL PROFESSIONAL Work Phone: [facility] 09-17-2022 09:43-0500 Respiratory rate 14 /min Юлия Odom BENCH ASSEMBLY INSPECTOR.DRYWALL PROFESSIONAL Work Phone: [facility] 09-17-2022 09:43-0500 Systolic blood pressure 143 mm[Hg] Юлия Odom BENCH ASSEMBLY INSPECTOR.DRYWALL PROFESSIONAL Work Phone: [facility] 07-21-2022 10:15-0400 Body height 161.29 cm Rosanne Dumont Other [email or web address] Other 07-21-2022 10:15-0400 Body mass index (BMI) [Ratio] 46.03 kg/m2 Tondra Lazarous Other [email or web address] Other 07-21-2022 10:15-0400 Body weight 119.75 kg Tondra Mapus Other [email or web address] Other 07-21-2022 10:15-0400 Diastolic blood pressure 60 mm[Hg] Tondra Mapus Other [email or web address] Other 07-21-2022 10:15-0400 Respiratory rate 16 /min Tondra Mapus Other [email or web address] Other 07-21-2022 10:15-0400 SaO2% (BldA) [Mass fraction] 96 % Tondra Mapus Other [email or web address] Other 07-21-2022 10:15-0400 Systolic blood pressure 141 mm[Hg] Tondra Mapus Other [email or web address] Other 04-09-2022 10:15-0400 Body height 161.29 cm Tondra Mapus Other [email or web address] Other 04-09-2022 10:15-0400 Body mass index (BMI) [Ratio] 47.42 kg/m2 Tondra Mapus Other [email or web address] Other 04-09-2022 10:15-0400 Body weight 123.38 kg Tondra Mapus Other [email or web address] Other 04-09-2022 10:15-0400 Diastolic blood pressure 65 mm[Hg] Tondra Mapus Other [email or web address] Other 04-09-2022 10:15-0400 Respiratory rate 16 /min Tondra Mapus Other [email or web address] Other 04-09-2022 10:15-0400 SaO2% (BldA) [Mass fraction] 97 % Tondra Mapus Other [email or web address] Other 04-09-2022 10:15-0400 Systolic blood pressure 132 mm[Hg] Tondra Mapus Other [email or web address] Other 12-18-2021 10:45-0500 Body height 161.29 cm Tondra Mapus Other [email or web address] Other 12-18-2021 10:45-0500 Body mass index (BMI) [Ratio] 47.6 kg/m2 Tondra Mapus Other [email or web address] Other 12-18-2021 10:45-0500 Body weight 123.83 kg Tondra Mapus Other [email or web address] Other 12-18-2021 10:45-0500 Diastolic blood pressure 74 mm[Hg] Tondra Mapus Other [email or web address] Other 12-18-2021 10:45-0500 Respiratory rate 16 /min Tondra Mapus Other [email or web address] Other 12-18-2021 10:45-0500 SaO2% (BldA) [Mass fraction] 97 % Tondra Mapus Other [email or web address] Other 12-18-2021 10:45-0500 Systolic blood pressure 120 mm[Hg] Tondra Mapus Other [email or web address] Other 09-23-2021 09:30-0500 Body height 161.29 cm Sherman Larson Other [email or web address] Other 09-23-2021 09:30-0500 Body mass index (BMI) [Ratio] 47.42 kg/m2 Sherman Larson Other [email or web address] Other 09-23-2021 09:30-0500 Body weight 123.38 kg Sherman Larson Other [email or web address] Other 09-23-2021 09:30-0500 Diastolic blood pressure 60 mm[Hg] Sherman Larson Other [email or web address] Other 09-23-2021 09:30-0500 Respiratory rate 16 /min Sherman Larson Other [email or web address] Other 09-23-2021 09:30-0500 SaO2% (BldA) [Mass fraction] 98 % Sherman Larson Other [email or web address] Other 09-23-2021 09:30-0500 Systolic blood pressure 126 mm[Hg] Sherman Larson Other [email or web address] Other 09-10-2021 11:45-0500 Body height 161.29 cm Rosanne Dumont Other [email or web address] Other 09-10-2021 11:45-0500 Body mass index (BMI) [Ratio] 47.94 kg/m2 Rosanne Lazraous Other [email or web address] Other 09-10-2021 11:45-0500 Body weight 124.74 kg Tondra Lazarous Other [email or web address] Other 09-10-2021 11:45-0500 Diastolic blood pressure 63 mm[Hg] Tondra Mapus Other [email or web address] Other 09-10-2021 11:45-0500 Respiratory rate 20 /min Tondra Mapus Other [email or web address] Other 09-10-2021 11:45-0500 SaO2% (BldA) [Mass fraction] 96 % Tondra Mapus Other [email or web address] Other 09-10-2021 11:45-0500 Systolic blood pressure 121 mm[Hg] Tondra Mapus Other [email or web address] Other Encounters Encounter Date Encounter Type Care Provider Facility Start: 11-04-2023 End: 11-04-2023 ambulatory SHERMAN LARSON Facility:[facility] Start: 10-19-2023 End: 10-19-2023 ambulatory Sherman Larson Other [email or web address] Other Start: 10-19-2023 Office outpatient visit 25 minutes Sherman Larson [facility] [place] Start: 09-15-2023 End: 09-15-2023 ambulatory Judith Benitez Facility:[facility] Start: 09-15-2023 End: 09-15-2023 ambulatory DO Sherman Larson Work Phone: [facility] Work Phone: Start: 09-15-2023 End: 09-15-2023 Departed Referred DO Sherman Larson Work Phone: [facility] [place] Work Phone: Start: 09-09-2023 (DM) Diabetes Tondra Mapus [facility] Start: 09-09-2023 Telephone encounter Tondra Tejasus [facility] Start: 09-09-2023 End: 09-09-2023 ambulatory Sherman Larson [facility] [employer] Other Start: 09-09-2023 Registered Recurring DO Sherman Larson Work Phone: [facility] Work Phone: Start: 07-15-2023 End: 07-15-2023 ambulatory Referral Self Facility:[facility] Start: 07-15-2023 End: 07-15-2023 ambulatory DO Sherman Larson Work Phone: [facility] Work Phone: Start: 07-15-2023 End: 07-15-2023 Patient encounter procedure DO Sherman Larson Work Phone: [facility] Work Phone: Start: 06-29-2023 End: 06-30-2023 ambulatory Sherman Reyfaby Facility:[facility] Start: 06-29-2023 End: 06-29-2023 ambulatory DO Sherman Larson Work Phone: [facility] Work Phone: Start: 06-29-2023 End: 06-29-2023 Discharged Recurring DO Sherman Larson Work Phone: [facility] [place] Work Phone: Start: 06-29-2023 Registered Recurring DO Sherman Larson Work Phone: [facility] [place] Work Phone: Start: 05-26-2023 Registered Recurring DO Sherman Larson Work Phone: [facility] Work Phone: Start: 04-30-2023 End: 04-30-2023 ambulatory Hien Poole Facility:[facility] Start: 04-30-2023 End: 04-30-2023 ambulatory DO Sherman Larson Work Phone: [facility] Work Phone: Start: 04-30-2023 End: 04-30-2023 Discharged Recurring DO Sherman Larson Work Phone: [facility] [place] Work Phone: Start: 04-05-2023 End: 04-05-2023 ambulatory Sherman Larson Other [email or web address] Other Start: 04-05-2023 Encounter by ji Larson [facility] [place] Start: 04-02-2023 End: 04-02-2023 ambulatory Tondra Mapus Other [email or web address] Other Start: 04-02-2023 Telephone encounter Ton Mapus [facility] Start: 03-31-2023 End: 03-31-2023 ambulatory Tondra K Mapus Facility:[facility] Start: 03-31-2023 End: 03-31-2023 ambulatory DO Sherman Larson Work Phone: [facility] Work Phone: Start: 03-31-2023 End: 03-31-2023 Patient encounter procedure DO Sherman Larson Work Phone: [facility] [place] Work Phone: Start: 03-30-2023 Registered Recurring DO Sherman Larson Work Phone: [facility] [place] Work Phone: Start: 02-19-2023 ambulatory Ivory Rizo francisco j [facility] Work Phone: [facility] -[facility] Comment on above: antibiotic prescript ion Start: 02-19-2023 E-mail encounter fro m caregiver Ivory Stuart [facility] Work Phone: [facility] Start: 02-19-2023 End: 02-19-2023 Subsequent hospital visit by physician Lior Linton MD Work Phone: [facility] - ENDO Comment on above: Pancreatic cyst [K86 .2] Start: 02-10-2023 (DM) Diabetes Marceloa Tim [facility] Start: 02-10-2023 End: 02-10-2023 ambulatory Rosanne Dumont Other [facility] [employer] Other Start: 02-10-2023 Registered Recurring DO Sherman Larson Work Phone: [facility] Work Phone: Start: 02-09-2023 ambulatory Lior Linton MD Work Phone: [facility] - END[facility] Start: 02-04-2023 Telephone encounter Orville Rocha (Facing [employer]) Hu nt Pre Anesthesia Comment on above: [facility] (Lab Results) Start: 02-02-2023 End: 02-02-2023 Admission to establishment Pacc Main [facility] Start: 02-02-2023 End: 02-02-2023 ambulatory SHERMAN LARSON Pre Anesthesia Comment on above: Pre-op evaluation (P rimary Dx); Type 2 diabetes mellitus without complication, unspecified whether fdc insulin use (HCC); Mixed hyperlipidemia; Endometrial cancer (HCC); Morbid obesity (HCC) Start: 02-02-2023 End: 02-02-2023 Preprocedural examination done Pacc Virtual Pre Anesthesia Start: 01-22-2023 Telephone encounter Lior page MD Work Phone: Gastroenterology Comment on above: Imaging available fo r review Start: 01-07-2023 End: 01-07-2023 ambulatory LIOR LINTON Facility:[facility] Start: 01-07-2023 End: 01-07-2023 Patient encounter procedure Lior Linton MD Work Phone: Gastroenterology Comment on above: Pancreatic cyst (Qian lakhwinder Dx); Family history of pancreatic cancer; History of endometrial cancer Start: 11-19-2022 ambulatory LIOR LINTON Facility:[facility] Start: 11-04-2022 (DM) Diabetes Tondra Tim [facility] Start: 11-04-2022 End: 11-04-2022 ambulatory Tondra Mapus Other [email or web address] Other Start: 11-02-2022 End: 11-02-2022 ambulatory Heidi Sanchez Other [email or web address] Other Start: 11-02-2022 Encounter by ij galaviz Heidi Crowleylinette [facility] Start: 10-30-2022 Telephone encounter Lior page MD Work Phone: Gastroenterology Comment on above: Orders Start: 10-14-2022 End: 10-14-2022 ambulatory Tondra Mapus Other [email or web address] Other Start: 10-14-2022 Telephone encounter Tondra Tim [facility] Start: 09-24-2022 End: 09-24-2022 ambulatory Sherman Larson Other [email or web address] Other Start: 09-24-2022 Office outpatient visit 15 minutes Sherman Larson [facility] [place] Start: 09-17-2022 End: 09-17-2022 Follow-up encounter Юлия Odom APRN.DRYWALL PROFESSIONAL Work Phone: Gynecology Comment on above: Encounter for follow -up surveillance of endometrial cancer (Primary Dx); Pancreatic cyst; Lung nodules Start: 09-17-2022 End: 09-17-2022 Patient encounter procedure Юлия Odom APRN.DRYWALL PROFESSIONAL Work Phone: [facility] Start: 09-11-2022 End: 09-11-2022 ambulatory ЮЛИЯ ODOM Facility:[facility] Start: 08-13-2022 Telephone encounter Lavinia Godfrey RN R adiology Pet CT Comment on above: Orders Start: 07-21-2022 (DM) Diabetes Tondra Mapus [facility] Start: 07-21-2022 End: 07-21-2022 ambulatory Tondra Mapus Other [email or web address] Other Start: 06-11-2022 End: 06-11-2022 Patient encounter procedure DO Sherman Larson Work Phone: [facility] Start: 04-09-2022 Registered Recurring DO Sherman Salvador Work Phone: [facility] Start: 04-09-2022 (DM) Diabetes Tondra Mapus [facility] Start: 04-09-2022 End: 04-09-2022 ambulatory Tondra Mapus Other [email or web address] Other Start: 03-25-2022 End: 03-25-2022 ambulatory Sherman Larson Other [email or web address] Other Start: 03-25-2022 Telephone encounter Sherman Larson [facility] [place] Start: 03-12-2022 End: 03-12-2022 ambulatory Tondra Mapus Other [email or web address] Other Start: 03-12-2022 Telephone encounter Tondra Mapus [facility] Start: 01-29-2022 End: 01-29-2022 ambulatory Tondra Mapus Other [email or web address] Other Start: 01-29-2022 Telephone encounter Tondra Mapus [facility] Start: 12-18-2021 (DM) Diabetes Tondra Mapus [facility] Start: 12-18-2021 End: 12-18-2021 ambulatory Tondra Mapus Other [email or web address] Other Start: 10-18-2021 End: 10-18-2021 ambulatory Sherman Larson Other [email or web address] Other Start: 10-18-2021 Telephone encounter Sherman Larson [facility] [place] Start: 09-23-2021 End: 09-23-2021 ambulatory Sherman Larson Other [email or web address] Other Start: 09-23-2021 Office outpatient visit 25 minutes Sherman Larson [facility] Start: 09-10-2021 (DM) Diabetes Tondra Tejasus [facility] Start: 09-10-2021 End: 09-10-2021 ambulatory Tondra Dumont Other [email or web address] Other Start: 11-04-2018 Preoperative state Rosanne Dawkins s Other [email or web address] Other Procedures Date Procedure Procedure Detail Performing [...] 09-15-2023 Superficial Wound Culture Superficial Wound Culture [facility] Start: 10-12-2022 ADVANCE DIRECTIVE DISCUSSION ADVANCE DIRECTIVE DISCUSSION [facility] Start: 10-12-2022 DEPRESSION ASSESSMENT DEPRESSION ASS ESSMENT [facility] Start: 09-11-2022 End: 11-11-2022 CREATININE BLD CREATININE BLD Lab Routine Malignant neoplasm of body of uterus, unspecified site (HCC) Expected: 09/11/2022, Expires: 11/11/2022 [facility] Work Phone: Comment on above: Expected: 09/11/2022 , Expires: 11/11/2022 Start: 06-12-2022 Influenza vaccination INFLUENZA (#1) [facility] Start: 10-12-2021 ADVANCE DIRECTIVE DISCUSSION ADVANCE DIRECTIVE DISCUSSION [facility] Start: 10-12-2021 DEPRESSION ASSESSMENT DEPRESSION ASS ESSMENT [facility] Start: 09-02-2021 COVID-19 VACCINE (4 - Booster for Pfizer series) COVID-19 VACCINE (4 - Booster for Pfizer series) [facility] Start: 2018 BONE DENSITY BONE DENSITY [facility] Start: 2003 SHINGRIX VACCINE (1 of 2) SHINGRIX VACCINE (1 of 2) [facility] Start: 05-04-2002 Urine microalbumin profile DTAP,TDAP,TD (1 - Tdap) [facility] Start: 1998 COLOGUARD (FIT-DNA) COLOGUARD (FIT-D NA) [facility] Start: 1998 Colonoscopy COLONOSCOPY [facility] Start: 1998 COLORECTAL CANCER SCREENING COLORECTAL CANCER SCREENING [facility] Start: [address] COLONOGRAPHY [facility] Start: 1998 FECAL OCCULT BLOOD FECAL OCCULT BLOO D [facility] Start: 1998 SIGMOIDOSCOPY SIGMOIDOSCOPY [facility] Start: 1993 Mammography MAMMOGRAM [facility] Start: 1971 ANNUAL PCP TEAM SURGERY AID MISHA DISEASE VISIT ANNUAL PCP TEAM CHRONIC DISEASE VISIT [facility] Start: 1971 Hepatitis B surface antibody level LDL CHOLESTEROL [facility] Start: 1971 HEPATITIS C SCREENING HEPATITIS C SC REENING [facility] Start: 1963 3 comp foot exam completed DIABETIC FOOT EXAM [facility] Start: 1963 Hepatitis B screening URINE ALBUMIN:CREATININE RATIO [facility] Start: 1963 Hepatitis C antibody , confirmatory test DILATED RETINAL EXAM [facility] Start: 1959 PNEUMOCOCCAL: 65+ (1 - PCV) PNEUMOCOCCAL: 65+ (1 - PCV) [facility] Start: 1958 Hemoglobin A1c/Hemoglobin.total in Blood HBA1C [facility] Bacteria identified in Unspecified specimen by Aerobe culture [facility] CYTOLOGY NON-HEEL CURVER CYTOLOGY NON-GY N Lab Routine Pancreatic cyst Release Upon Ordering for 1 Occurrences starting 02/19/2023 [facility] Work Phone: Comment on above: Release Upon Orderin g for 1 Occurrences starting 02/19/2023 End: 01-08-2024 EGD - THERAPEUTIC, EUS, OR TUBE INTERVENTIONS EGD - THERAPEUTIC, EUS, OR TUBE INTERVENTIONS Endoscopy Routine Pancreatic cyst 1 Occurrences starting 01/07/2023 until 01/08/2024 [facility] Work Phone: Comment on above: 1 Occurrences starti ng 01/07/2023 until 01/08/2024 [facility] Immunizations Immunization Date Immunization Notes Care Provider Fa cili 02-18-2022 COVID-19 original vaccine, age 12+ yr, monovalent (PFIZER-BIONTECH - JARAMILLO TOP) Ivory Stuart [facility] Work Phone: [facility] 02-18-2022 COVID-19 Vaccine Pfizer - Documentation Purposes Only Sherman Larson Other [email or web address] Other 07-08-2021 COVID-19 Pfizer Sherman Kuns Other [facility] 07-08-2021 influenza, seasonal, injectable Shermanleonor Rothmans Other [email or web address] Other 01-03-2021 COVID-19 Pfizer Sherman Kuns Other [facility] 12-13-2020 COVID-19 Pfizer Sherman Kuns Other [facility] 09-21-2020 zoster vaccine recombinant Sherman Kuns Other [email or web address] Other 06-26-2020 zoster vaccine recombinant Sherman Kuns Other [facility] [employer] Other 06-20-2019 influenza, seasonal, injectable Tondrcamilo Lazarous Other [email or web address] Other 07-05-2018 influenza, injectabl e, quadrivalent, preservative free Lavinia Godfrey RN [facility] 06-01-2017 influenza, injectabl e, quadrivalent, preservative free Lavinia Godfrey RN [facility] 08-10-2009 novel [id number], preservative-free, injectable Lavinia Godfrey RN [facility] 05-03-2002 TD(adult) unspecifie d formulation Lavinia Godfrey RN [facility] Payers Date Payer Category Payer Medicare MEDICARE MEDICAR E A AND B [id number] 2018-Present [phone] [address] [address] [place] [address] Medicare [id number] 2018 Unknown [id number] 2018 Unknown [id number] 2018 Medicare [id number] 2018 Self-pay [id number] 2018 Unknown [id number] Unknown [id number] Unknown [id number] Unknown [id number] Unknown [id number] Unknown [id number] Unknown [id number] Unknown [id number] Social History Date Type Detail Facility Unknown if ever smoked [email or web address] Other Sex Assigned At Sex Assigned At Bir th [email or web address] Other Start: 07-30-2021 End: 06-29-2023 Tobacco smoking status NHIS Never smoked tobacco (finding) [facility] Start: 1955 Sex Assigned At Female F [facility] Start: 02-12-2018 End: 09-17-2022 Tobacco use and exposure Smokeless tobacco non-user [facility] Start: 04-03-2021 End: 02-02-2023 Alcohol intake Current non-drinker of alcohol (finding) [facility] Start: 09-01-2022 End: 09-11-2022 Exposure to SARS-CoV-2 (event) Not sure [facility] Medical Equipment Procedure Code Equipment Code [...] Type Note Facility 11-04-2023 Note HNO ID: [id number] Author: ЮЛИЯ ODOM APRN.DRYWALL PROFESSIONAL Service: ? Author Type: Nurse Practitioner Type: [...] present, cervix not involved HNPCC screening negative ER/OH: negative 2. Chemotherapy with Carboplatin and taxol [...] cancer, +LVI, MMR nl Limited staging 12/2015 ([facility]) HDRB c 04/2016 Chemo x 5 c 06/2016 Pancreatic cyst work up with EUS, cytology 02/2023 negative. Followed by GI . PLAN: - doing well, exam normal - previous CT chest 09/2022 with lung nodules-will repeat now. - health maintenance up to date-[facility]-negative - continue fol (more content not included)... [facility] 10-19-2023 Evaluation note Encounter Date Diagnosis Assessment Notes Oct, Pancreatic cyst (ICD-10 - K86.2) Pancreatic cyst adenoma has been followed by [facility] with benign pathology results. 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 Oct, Venous insufficiency (ICD-10 - I87.2) The patient encouraged continuing plan of care as instructed by the [place] [facility].The patient [...] Blood work ordered today to evaluate coagulopathies. [email or web address] Other 11-29-2023 Evaluation note* Encounter Date Diagnosis Assessment Notes Treatment Notes Treatment Clinical Notes Aug, Type 2 diabetes mellitus (ICD-10 - E11.9) Managing type 2 diabetes material was published 1. Uncontrolled, Type 2 diabetes A1C 8.3% 2. Blood glucose levels above target. According to [employer] 2 cgm download 08/27/2023- 023 Avg glucose [...] High blood pressure material was published Aug, terminal operator current use of insulin (ICD-10 - Z79.4) Aug, B12 deficiency (ICD-10 - E53.8) Good food sources of vitamin B12 material was published 03/2023 Vit b12 221 Aug, BMI 45.0-49.9, adult (ICD-10 - Z68.42) Setting weight-loss goals material was published 6 pound weight loss from last visit, continue with weight loss efforts Aug, Skin abnormalities (ICD-10 - L98.9) Referral to dermatology [facility] Other 11-29-2023 Evaluation note* Encounter Date Diagnosis Assessment Notes Treatment Notes Treatment Clinical Notes Aug, Skin abnormalities (ICD-10 - L98.9) [facility] [employer] Other 09-18-2023 Progress note Author Hien Poole [facility] June 29, 2023 9:41am Note Date/Time June 29, 2023 9:36am [facility] [address] [place] [address] Wound Center Provider Note Signed Patient: Magy Castro MR#: [id number] : 1955 Acct:[id number] Age/Sex: 67 / F Copies to: Sherman Larson,DO Hien Poole, BENCH ASSEMBLY INSPECTOR~ HPI Date of Visit Date of Visit: Date of Service: 06/29/2023 Time of Service: 09:35 Narrative HPI: 06/29/23 Debbie is a 67 year old female presenting [facility] care for a follow up visit for eval and treatment of RLE ulcer that appear d/t venous and lymphedema etiologies. She has been a patient here in the past. Urgo k2 wrap will be used along with topical steroid and she will present here for dressings.We spoke about vascular and she did has been having her venous procedures in [place]. Weight loss and elevation and compression and [...] start?: Early May 2023 Mode of Arrival/ Supervisor Slitting And Shipping: Personal vehicle Lives with:: Spouse Appetite Description: Within Normal Limits Who helps w/ dressing change?: Wound Care Dept Why Do You Need Help?: Can't Reach Ulcer Smoking Status: Never smoker [facility] Medical History (Updated 06/29/23 @ 09:36 by [...] By: <Electronically signed by WALTER Poole> 06/29/2341 [facility] Work Phone: 1(474) 304-999809-11-2023 Progress note Author Hien Poole [facility] June 22, 2023 1:48pm Note Date/Time June 22, 2023 1:48pm [facility] [address] [place] [address] Wound Center Provider Note Signed Patient: Magy Casrto MR#: [id number] : 1955 Acct:[id number] Age/Sex: 67 / F Copies to: Sherman Larson,DO Hien Poole APRN~ HPI Date of Visit Date of Visit: Date of Service: 06/22/2023 Time of Service: 13:44 Subjective Pain Right Lower Leg: Pain Intensity: 0 Wound/Ulcer History When did wound start?: Early May 2023 Mode of Arrival/ Supervisor Slitting And Shipping: Personal vehicle Lives with:: Spouse Appetite Description: Within Normal Limits Who helps w/ dressing change?: Wound Care Dept Why Do You Need Help?: Can't Reach Ulcer Smoking Status: Never smoker [facility] Medical History (Updated 06/22/23 @ 13:46 by [...] Appearance: Beefy Red, Epithelial Tissue or Bridge, [place] and Yellow Surrounding Tissue Appearance: Bright Red [...] <Electronically signed by WALTER Poole> 06/22/23 1348 [facility] Work Phone: 1(628) 196-413307-10-2023 Progress note Author Hien Poole [facility] April 20, 2023 9:12am Note Date/Time April 20, 2023 9:12 am [facility] [address] [place] [address] Wound Center Provider Note Signed Patient: Magy Castro MR#: [id number] : 1955 Acct:[id number] Age/Sex: 67 / F Copies to: DO Hien Taylor APRN~ HPI Date of Visit Date of Visit: Date of Service: 04/20/2023 Time of Service: 09:10 Narrative HPI: 03/25/23 Debbie is a 67 year old [facility] [...] interested in seeing the vascular group in [place] but she wants to wait at this [...] topically to the right leg, will do [place] vein referral today, continues to take the horse chestnut and probiotics Subjective Pain Left Lower Leg: Pain Intensity: 0 Right Lower Leg: Pain Intensity: 0 Wound/Ulcer History When did wound start?: July 2022 Mode of Arrival/ Supervisor Slitting And Shipping: Personal vehicle Lives with:: Spouse Appetite Description: Within Normal Limits Who helps w/ dressing change?: Wound Care Dept Why Do You Need Help?: Can't Reach Ulcer and Limited mobility Smoking Status: Never smoker [facility] Medical History (Updated 04/20/23 @ 09:10 by [...] (and venous) Thickness: Skin Breakdown Bed Appearance: [place] Percent of Wound Bed Granulated/Red: 100 Percent of Devitalized: 0 Length (cm): 35.0 Width (cm): 40.0 Depth (cm): 0.1 CM Sq: 1400.000 Surrounding Tissue Appearance: Peeling and Dryness Surrounding Tissue Temp: Warm Drainage Amount: None Drainage Description: Serosanguineous Drainage Odor: No Odor Left Lower Leg: Type: Lymphedema (and venous) Thickness: Skin Breakdown Bed Appearance: [place] Percent of Wound Bed Granulated/Red: 100 Percent [...] By: <Electronically signed by WALTER Poole> 04/20/23911 [facility] Work Phone: 1(228) 950-411206-29-2023 Progress note Author Hien Poole [facility] April 09, 2023 10:05am Note Date/Time April 09, 2023 10:0 5am [facility] [address] [place] [address] Wound Center Provider Note Signed Patient: Magy Castro MR#: [id number] : 1955 Acct:[id number] Age/Sex: 67 / F Copies to: Sherman Larson,DO Hien Poole APRN~ HPI Date of Visit Date of Visit: Date of Service: 04/09/2023 Time of Service: 10:00 Narrative HPI: 03/25/23 Debbie is a 67 year old female [facility] an [facility] visit [...] interested in seeing the vascular group in [place] but she wants to wait at this [...] wound start?: July 2022 Mode of Arrival/ Supervisor Slitting And Shipping: Personal vehicle Lives with:: Spouse Appetite Description: Within Normal Limits Who helps w/ dressing change?: Wound Care Dept Why Do You Need Help?: Can't Reach Ulcer and Limited mobility Smoking Status: Never smoker [facility] Medical History (Updated 04/09/23 @ 10:04 by [...] (and venous) Thickness: Skin Breakdown Bed Appearance: [place] Percent of Wound Bed Granulated/Red: 100 Percent of Devitalized: 0 Length (cm): 35.0 Width (cm): 40.0 Depth (cm): 0.1 CM Sq: 1400.000 Surrounding Tissue Appearance: Dryness Surrounding Tissue Temp: Warm Drainage Amount: Small Drainage Description: Serosanguineous Drainage Odor: No Odor Left Lower Leg: Type: Lymphedema (and venous) Thickness: Skin Breakdown Bed Appearance: Beefy Red, [place] and Yellow Percent of Wound Bed Granulated/Red: [...] <Electronically signed by WALTER Poole> 04/09/23 1005 [facility] Work Phone: 1(450) 349-888206-22-2023 Progress note Author Hien Poole [facility] April 02, 2023 9:18am Note Date/Time April 02, 2023 9:19 am [facility] [address] [place] [address] Wound Center Provider Note Signed Patient: Magy Castro MR#: [id number] : 1955 Acct:[id number] Age/Sex: 67 / F Copies to: Sherman Larson,DO Hien Poole APRN~ HPI Date of Visit Date of Visit: Date of Service: 04/02/2023 Time of Service: 09:16 Narrative HPI: 03/25/23 Dbebie is a 67 year old female [facility] visit [...] interested in seeing the vascular group in [place] but she wants to wait at this [...] wound start?: July 2022 Mode of Arrival/ Supervisor Slitting And Shipping: Personal vehicle Lives with:: Spouse Appetite Description: Within Normal Limits Who helps w/ dressing change?: Wound Care Dept Why Do You Need Help?: Can't Reach Ulcer and Limited mobility Smoking Status: Never smoker [facility] Medical History (Updated 04/02/23 @ 09:18 by [...] Appearance: Beefy Red, Epithelial Tissue or Bridge, [place] and Yellow Percent of Wound Bed Granulated/Red: 90 Percent of Devitalized: 10 Length (cm): 35.0 Width (cm): 40.0 Depth (cm): 0.1 CM Sq: 1400.000 Surrounding Tissue Appearance: Hyperpigmented Surrounding Tissue Temp: Warm Drainage Amount: Moderate Drainage Description: Serosanguineous Drainage Odor: No Odor Left Lower Leg: Type: Lymphedema (and venous) Thickness: Skin Breakdown Bed Appearance: Beefy Red, Epithelial Tissue or Bridge, [place] and Yellow Percent of Wound Bed Granulated/Red: [...] By: <Electronically signed by WALTER Poole> 04/02/23917 [facility] Work Phone: 1(773) 675-628406-14-2023 Progress note Author Hien Poole [facility] March 25, 2023 3:02pm Note Date/Time March 25, 2023 2:58 pm [facility] [address] [place] [address] Wound Center Provider Note Signed Patient: Magy Castro MR#: [id number] : 1955 Acct:[id number] Age/Sex: 67 / F Copies to: Sherman Larson,DO Hien Poole APRN~ HPI Date of Visit Date of Visit: Date of Service: 03/25/2023 Time of Service: 14:52 Narrative HPI: 03/25/23 Debbie is a 67 year old female [facility] visit [...] interested in seeing the vascular group in [place] but she wants to wait at this [...] wound start?: July 2022 Mode of Arrival/ Supervisor Slitting And Shipping: Personal vehicle Lives with:: Spouse Appetite Description: Within Normal Limits Who helps w/ dressing change?: Wound Care Dept Why Do You Need Help?: Can't Reach Ulcer and Limited mobility Smoking Status: Never smoker [facility] Medical History (Updated 03/25/23 @ 14:54 by [...] Appearance: Beefy Red, Epithelial Tissue or Bridge, [place] and Yellow Percent of Wound Bed Granulated/Red: 90 Percent of Devitalized: 10 Length (cm): 35.0 Width (cm): 40.0 Depth (cm): 0.1 CM Sq: 1400.000 Surrounding Tissue Appearance: Hyperpigmented Surrounding Tissue Temp: Warm Drainage Amount: Moderate Drainage Description: Serosanguineous Drainage Odor: No Odor Left Lower Leg: Type: Lymphedema (and venous) Thickness: Skin Breakdown Bed Appearance: Beefy Red, Epithelial Tissue or Bridge, [place] and Yellow Percent of Wound Bed Granulated/Red: [...] <Electronically signed by WALTER Poole> 03/25/23 1502 [facility] Work Phone: 1(766) 617-748505-11-2023 Nurse Note* Lakhwinder Payan RN - 02/19/2023 [...] None REFERRAL (RECOMMENDATION): None documented in this encounterDunlap [facility] Hospital05-11-2023 History and physical note * Lior [...] 2:04 PM Source Note - Christophe Shaffer, WALTER.DRYWALL PROFESSIONAL - 02/02/2023 8:00 AM EDT Images from the original note were not included. PREANESTHESIA CONSULT CLINIC TELEHEALTH VISIT Patient has been identified by name and date of : Yes This is a virtual visit using inDplay video visit. It require patient-provider interaction for [...] fevers. Neuro: No history of TIA's, stroke, AEROSPACE ENGINEER tumor, impaired sensorium, hemiplegia, paraplegia or quadraplegia. [...] or incontinence,, stones or chronic kidney disease HEEL CURVER: Negative for abnormal vaginal bleeding, abnormal vaginal [...] device. I spent more than 21-40 minutes kmxa-ur-xwwn with the patient and over half the time was devoted tocounseling and/or coordination of care. This is a virtual visit. It required patient-provider interaction for the medical decision making as documented above. SIGNATURE: Christophe Shaffer APRN.VINCE PATIENT NAME: Magy Castro DATE: February 02, 2023 TIME: 8:45 AM PAGER/CONTACT #: documented in this encounterDunlap [facility] Hospital05-02-2023 Evaluation note* Encounter Date Diagnosis Assessment Notes Treatment Notes Treatment Clinical Notes February, Type 2 diabetes mellitus (ICD-10 - E11.9) Managing type 2 diabetes material was published 1. Uncontrolled, Type 2 diabetes A1C 7.3% 2. Blood glucose levels improved. According to [employer] 2 cgm download 01/28/2023-02/10/2023 Avg glucose 160. [...] hyperglycemia, or diabetes medication issues. 6. Prescriptions: Naymit MAIL ORDER/CARLOS PIZANO: None at this time. [...] High blood pressure material was published February, MCFP current use of insulin (ICD-10 - Z79.4) February, B12 deficiency (ICD-10 - E53.8) Good food sources of vitamin B12 material was published 03/2022 Vit b12 >1400 February, BMI 45.0-49.9, adult (ICD-10 - Z68.42) Setting weight-loss goals material was published [email or web address] Other [id number] Miscellaneous Notes* Telephone Encounter - Orville Zamarripa LPN - 02/04/2023 11:44 AM EDTSummary: External Lab Results Scanned into patients chart documented in this encounterDunlap Memorial Hospital04-25-2023 Miscellaneous Notes* Telephone Encounter - Heidi Parson RN - 02/03/2023 1:19 PM EDT Attempted to call pt, no answer. Left detailed voice msg regarding msg below. Instructed to call back with any questions. Heidi Parson RN * Telephone Encounter - Lior Linton MD - 02/03/2023 7:22 AM EDT MRCP images were reviewed. The images were downloaded to [facility] and the MRI was done at [facility]. Agree with the findings of the report. [...] pt. She will obtain MRCP disc from [facility] and send to our office. Heidi Parson RN ----- Message ----- From: Lior Linton MD Sent: 01/12/2023 5:41 PM EDT To: MARCEL Love: Please let me know when the MRCP disc is loaded into [employer] for my review. documented in this encounterDunlap Memorial Hospital04-24-2023 Instructions* Patient Instructions* Christophe Shaffer APRN.DRYWALL PROFESSIONAL - 02/02/2023 8:36 AM EDT PATIENT PREOPERATIVE INSTRUCTIONS Lior Linton MD has scheduled you for your procedure at this surgery center: [facility]: [phone] --[id number] [address]. Please check in on the1st floor at [...] Procedures: - YOU MUST HAVE A RESPONSIBLE STRIPPER OPAQUER TAKE YOU HOME. A OVERCASTER OR PROFESSOR OF GEOGRAPHY CANNOT BE MADE A RESPONSIBLE STRIPPER OPAQUER. - We recommend that a responsible person [...] Advance Directive, please fax a copy to [phone] or email to for it to be [...] day. Christophe Shaffer APRN.CNP documented in this encounterDunlap Memorial Hospital04-24-2023 History and physical note * Christophe Shaffer APRN.CNP - 02/02/2023 8:00 AM EDT Images from the original note were not included. PREANESTHESIA CONSULT CLINIC TELEHEALTH VISIT Patient has been identified by name and date of : Yes This is a virtual visit using inDplay video visit. It require patient-provider interaction for [...] fevers. Neuro: No history of TIA's, stroke, AEROSPACE ENGINEER tumor, impaired sensorium, hemiplegia, paraplegia or quadraplegia. [...] or incontinence,, stones or chronic kidney disease HEEL CURVER: Negative for abnormal vaginal bleeding, abnormal vaginal [...] device. I spent more than 21-40 minutes fkpx-ws-eeyq with the patient and over half the time was devoted tocounseling and/or coordination of care. This is a virtual visit. It required patient-provider interaction for the medical decision making as documented above. SIGNATURE: Christophe Shaffer APRN.CNP PATIENT NAME: Magy Castro DATE: February 02, 2023 TIME: 8:45 AM PAGER/CONTACT #: documented in this encounterDunlap Memorial Hospital03-29-2023 History and physical note * Lior [...] alcohol. 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 Her brother age 51 from pancreatic [...] (primary diagnosis) The MRCP was done at [facility]. I will review the images after they are downloaded to [facility]. We will schedule the patient for EUS with possible FNA especially with the strong family history ofpancreatic cancer. - EGD - THERAPEUTIC, EUS, OR TUBE INTERVENTIONS 2. Family history of pancreatic cancer - ICD9: V16.0, ICD10: Z80.0 Brother at age 51 from a and p mechanic cancer. He was not smoker or alcoholic. 3. History of endometrial cancer - ICD9: V10.42, ICD10: Z85.42 History of endometrial cancer stage II diagnosed 2016 and treated with surgery followed by chemo and radiation. Lior Linton MD, FACP documented in this encounterDunlap Memorial Hospital01-24-2023 Evaluation note* Encounter Date Diagnosis Assessment [...] High blood pressure material was published Oct, terminal operator current use of insulin (ICD-10 - Z79.4) Oct, B12 deficiency (ICD-10 - E53.8) Good food sources of vitamin B12 material was published 03/2022 Vit b12 >1400 Oct, BMI 45.0-49.9, adult (ICD-10 - Z68.42) Setting weight-loss goals material was published 2 pound weight loss from last visit, continue with weight loss efforts [email or web address] Other 01-19-2023 Miscellaneous Notes* Telephone Encounter - Romain Bautsita Pss - 10/30/2022 11:33 AM EST Spoke [...] AM EST Pt saw Dr. Rowland, at [facility] and was given Dr. Linton's name to schedule a ERCP?Dr. Rowland does not do ERCPs Pt stated that Dr. Rowland has sent over pt's medical records?! 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 [email or web address] Other 12-07-2022 History of Present illness Narrative* Юлия Odom APRN.[facility] - 09/17/2022 9:40 AM EST DATE: 09/17/2022 [...] present, cervix not involved HNPCC screening negative ER/[place]: negative 2. Chemotherapy with Carboplatin and taxol [...] cancer, +LVI, MMR nl Limited staging 12/2015 ([facility]) HDRB c 04/2016 Chemo x 5 [...] health maintenance up to date-[facility] - continue follow up with PCP - RTC in 12 months, sooner prn for issues/concerns. Юлия Odom APRN.CNP Medical Decision Making: Problems: Low: Stable chronic illness Data: Unique test result(s) reviewed: 1 Risk: Low: Low risk from testing/treatment Medical Decision Making Level: 3 - Low documented in this encounterDunlap Memorial Hospital12-01-2022 NoteHNO ID: [id number] Author: RT Eugenia(R) Service: ? Author Type: [...] BY: RT Eugenia(R) September 11, 2022 10:00 [facility]12-01-2022 NoteHNO ID: [id number] Author: Lavinia Godfrey RN Service: ? Author [...] Final Comment: Account Credited DUPLICATE ORDER MW [id number] 09/13/2021 0.70 0.58 - 0.96 mg/dL [...] Final Comment: Account Credited DUPLICATE ORDER MW [id number] P.O.C.T. RESULTS: POC done: Yes, See Lab Tab September 11, 2022 TREATMENT: No Hydration needed. IV SITE: Ambulatory: A peripheral IV was started in the Left antecubital site with a Angio cath: 20 gauge. IV SITE APPEARANCE: Clean,Dry and Intact SIGNATURE: Lavinia Godfrey RN PATIENT NAME: Magy Castro DATE: September 11, 2022 TIME: 9:59 [facility]11-02-2022 Miscellaneous Notes* Telephone Encounter - Lavinia Godfrey RN - 08/13/2022 10:56 AM EDT Please sign pending Cre order for Magy Castro for upcoming CT with contrast on 09/11/22. Thank you. Lavinia Godfrey RN documented in this encounterDunlap Memorial Hospital10-10-2022 Evaluation note* Encounter Date Diagnosis Assessment Notes Treatment Notes Treatment Clinical Notes Jul, Type 2 diabetes mellitus (ICD-10 - E11.9) Managing type 2 diabetes material was published 1. Uncontrolled, Type 2 diabetes A1C 8.2% 2. Blood glucose levels above target. According to Ling[employer] 2 cgm download 07/08/2022-07/21/20 Avg glucose 201. [...] High blood pressure material was published Jul, terminal operator current use of insulin (ICD-10 - Z79.4) Jul, B12 deficiency (ICD-10 - E53.8) Good food sources of vitamin B12 material was published 03/2022 Vit b12 >1400 Jul, BMI 45.0-49.9, adult (ICD-10 - Z68.42) Setting weight-loss goals material was published [email or web address] Other 06-29-2022 Evaluation note* Encounter Date Diagnosis Assessment Notes Treatment Notes Treatment Clinical Notes Mar, Type 2 diabetes mellitus (ICD-10 - E11.9) Managing type 2 diabetes material was published 1. Uncontrolled, Type 2 diabetes A1C 7.1% 2. Blood glucose levels above target. According to [employer] 2 cgm download 03/27/2022- 2 Avg glucose [...] High blood pressure material was published Mar, terminal operator current use of insulin (ICD-10 - Z79.4) Mar, B12 deficiency (ICD-10 - E53.8) Good food sources of vitamin B12 material was published 03/2022 Vit b12 >1400 Mar, BMI 45.0-49.9, adult (ICD-10 - Z68.42) Making healthy choices at restaurants material was published [email or web address] Other 06-14-2022 Evaluation note* Encounter Date Diagnosis Assessment Notes Treatment Notes Treatment Clinical Notes Mar, Sinus congestion (ICD-10 - R09.81) [email or web address] Other 04-20-2022 Evaluation note* Encounter Date Diagnosis Assessment Notes Treatment Notes Treatment Clinical Notes Jan, Type 2 diabetes mellitus (ICD-10 - E11.9) [email or web address] Other 03-09-2022 Evaluation note* Encounter Date Diagnosis Assessment Notes Treatment Notes Treatment Clinical Notes Dec, Type 2 diabetes mellitus (ICD-10 - E11.9) Managing type 2 diabetes material was published 1. Controlled, Type 2 diabetes A1C 7% 2. Blood glucose levels improved. According to Ling[employer] 2 cgm download 12/05/2021-12/18/2021 Avg glucose 157. [...] pattern. Reviewed with pt option of downloading Spock[employer] kiera to help with carb counting. Pt [...] u100 x1 pen given. Sent fiasp to [employer]. 7. Reviewed with pt if right great [...] High blood pressure material was published Dec, MCFP current use of insulin (ICD-10 - Z79.4) Dec, B12 deficiency (ICD-10 - E53.8) Good food sources of vitamin B12 material was published 04/2021 Vit b12 211 on supplement Dec, BMI 45.0-49.9, adult (ICD-10 - Z68.42) Making healthy choices at restaurants material was published Dec, Hypoglycemia associated with type 2 diabetes mellitus (ICD-10 - E11.649) Low blood glucose and diabetes material was published [email or web address] Other 01-07-2022 Evaluation note* Encounter Date Diagnosis Assessment Notes Treatment Notes Treatment Clinical Notes Oct, Cough (ICD-10 - R05.9) [email or web address] Other 12-13-2021 Evaluation note* Encounter Date Diagnosis [...] Sep, Vitamin D deficiency (ICD-10 - E55.9) [email or web address] Other 11-30-2021 Evaluation note* Encounter Date Diagnosis Assessment Notes Treatment Notes Treatment Clinical Notes Aug, Type 2 diabetes mellitus (ICD-10 - E11.9) Managing type 2 diabetes material was published 1. Uncontrolled, Type 2 diabetes A1C 7.2% 2. Blood glucose levels improved, above target. According to [employer] 2 cgm download 08/28/2021- 021 Avg glucose [...] medication issues. 6. Prescriptions: Victoza sent to [employer]. Aug, Dietary counseling and surveillance (ICD-10 - Z71.3) Eat well, exercise well, be well: dietary and fitness guidelines material was published Aug, Hyperlipidemia (ICD-10 - E78.5) Managing your cholesterol material was published 04/2021 ldl 75, trig. 164 on statin. Aug, HTN (hypertension) (ICD-10 - I10) High blood pressure material was published Aug, MCFP current use of insulin (ICD-10 - Z79.4) Aug, B12 deficiency (ICD-10 - E53.8) Good food sources of vitamin B12 material was published 04/2021 Vit b12 211 on supplement Aug, BMI 45.0-49.9, adult (ICD-10 - Z68.42) Making healthy choices at restaurants material was published Aug, Hypoglycemia associated with type 2 diabetes mellitus (ICD-10 - E11.649) Low blood glucose and diabetes material was published [email or web address] Other Evaluation noteNo InformationNort Numari Other Evaluation noteNo assessment information available [facility] Work Phone: [email or web address] note* Diagnosis Malignant neoplasm of body of uterus, unspecified site (HCC)- Primary documented in [facility] encounter [facility]* Diagnosis Encounter for follow-up surveillance of endometrial cancer- Primary Unspecified follow-up examination Pancreatic cyst Cyst and pseudocyst of pancreas Lung nodules Other nonspecific abnormal finding of lung field documented in this encounter [facility]* Diagnosis Pancreatic cyst- Primary Cyst and pseudocyst of pancreas Family history of pancreatic cancer Family history of malignant neoplasm of gastrointestinal tract History of endometrial cancer Personal history of malignant neoplasm of other parts of uterus [facility]* Diagnosis Pre-op evaluation- Primary Preoperative examination, unspecified Type 2 diabetes mellitus without complication, unspecified whether 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 teacher insulin use (HCC) Mixed hyperlipidemia Endometrial cancer (HCC) Malignant neoplasm of corpus uteri, except isthmus Morbid obesity (HCC) Morbid obesity documented in this encounter [facility]* Diagnosis Pancreatic cyst Cyst and pseudocyst of pancreas documented in this encounter [facility]* Diagnosis Onset Date Resolution Status Diabetes chronic Edema chronic 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 Inflammation chronic Lymphedema of both lower extremities chronic Obesity chronic Venous stasis of both lower extremities chronic Venous stasis ulcer of left lower extremity chronic Venous stasis ulcer of right lower extremity chronic [facility] Work Phone: Evaluation note* Diagnosis Onset Date Resolution Status Diabetes chronic Edema chronic 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 Inflammation chronic Lymphedema of both lower extremities chronic Obesity chronic Venous stasis of both lower extremities chronic Candidiasis resolved Cellulitis resolved Venous stasis ulcer of left lower extremity resolved Venous stasis ulcer of right lower extremity resolved [facility] Work Phone: Evaluation note* Diagnosis Onset [...] stasis ulcer of right lower extremity resolved [facility] Work Phone: Evaluation note* Diagnosis Onset Date Resolution Status Diabetes chronic Edema chronic 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 Inflammation chronic Lymphedema of both lower extremities chronic Obesity chronic Venous stasis of both lower extremities chronic Candidiasis resolved Venous stasis ulcer of right lower extremity resolved [facility] Work Phone: history general Narrative - [...] See Above Hospitalization History Covid 19 10/16/20- [email or web address] Other history general Narrative - Reported* Type [...] See Above Hospitalization History Covid 19 10/16/20- [email or web address] Other history general Narrative - Reported* Type [...] See Above Hospitalization History Covid 19 10/16/20- [facility] Other History general Narrative - [facility] Other Progress note Author Hien Poole [facility] April 30, 2023 9:07am Note Date/Time April 30, 2023 9:07 am [facility] [address] [place] [address] Wound Center Provider Note Signed Patient: Magy Castro MR#: [id number] : 1955 Acct:[id number] Age/Sex: 67 / F Copies to: Sherman Larson,DO Hien Poole APRN~ HPI Date of Visit Date of Visit: Date of Service: 04/30/2023 Time of Service: 09:05 Narrative HPI: 03/25/23 Debbie is a 67 year old [facility] [...] interested in seeing the vascular group in [place] but she wants to wait at this [...] wound start?: July 2022 Mode of Arrival/ Supervisor Slitting And Shipping: Personal vehicle Lives with:: Spouse Appetite Description: Within Normal Limits Who helps w/ dressing change?: Wound Care Dept Why Do You Need Help?: Can't Reach Ulcer and Limited mobility Smoking Status: Never smoker [facility] [place] Medical History (Updated 04/30/23 @ 09:07 by [...] <Electronically signed by WALTER Poole> 04/30/23 0907 [facility] Work Phone: [facility] for referral (narrative)* Outpatient Procedure (Routine) - Authorized Specialty Diagnoses / Procedures Referred By Contac t Referred To Contact [facility] Diagnoses Pancreatic cyst Procedures EGD - THERAPEUTIC, EUS, OR TUBE INTERVENTIONS EGD INTRMURAL US NEEDLE ASPIRATE/[place] [address] [place] [address] [address] Referral ID Status Reason Start Date Expiration Date Visits Requested Visits Authorized [id number] Authorized Auto-Generat ed Referral 01/07/2023 01/08/2024 1 1 T [facility] for referral (narrative)* Outpatient Procedure (Routine) - Closed Specialty Diagnoses / Procedures Referred By Contac t Referred To Contact [facility] Diagnoses Pancreatic cyst Procedures EGD - THERAPEUTIC, EUS, OR TUBE INTERVENTIONS EGD INTRMURAL US NEEDLE ASPIRATE/[place] [address] [place] [address] [address] [address] [place] [address] Referral ID Status Reason Start Date Expiration Date V isits Requested Visits Authorized [id number] Closed Auto-Generate d Referral 01/07/2023 01/08/2024 1 1 T [facility] for visit Narrative* Outpatient Procedure (Routine) - Closed Specialty Diagnoses / Procedures Referred By Contac t Referred To Contact [facility] Diagnoses Pancreatic cyst Procedures EGD - THERAPEUTIC, EUS, OR TUBE INTERVENTIONS EGD INTRMURAL US NEEDLE ASPIRATE/[place] [address] [place] [address] [address] Referral ID Status Reason Start Date Expiration Date V isits Requested Visits Authorized [id number] Closed Auto-Generate d Referral 01/07/2023 01/08/2024 1 1 [facility] Chief Complaint and Reason for Visit [...] abnormalities ( L98.9) Referral Organization [facility] Referring Provider First Name Rosanne Referring Provider Last Name Tim Referring Provider Specialty Nurse Pract itioner Referred Organization [facility] Referred Provider Chi Cordero Referred Address ,[place], [place],[address] Referred Provider Specialty Dermatology Referral Priority Routine Specialty Diagnoses / Procedures Referred By Viky t Referred To Contact Gastroenterology Diagnoses Pancreatic cyst Procedures CONSULT TO GASTROENTEROLOGY OFFICE/OUTPATIENT [facility] 60-74 MINUTES Юлия Odom APRN.[employer] [address] [place] [address] Referral ID Status Reason Start Date Expiration Date Visits Requested Visits Authorized [id number] Authorized PCP Requested Referral 09/17/2022 09/17/2023 1 [...] Primary Care Provider, Attending Provi regan Active Hand Ironer Relationship Specialty Start Date End Date Sherman Larson [address] [address] PCP - General Family Medicine 01/15/16 Hand Ironer Relationship Specialty Start Date End Date Sherman Larson [address] [address] PCP - General Family Medicine 01/15/16 Hand Ironer Relationship Specialty Start Date End Date Sherman Larson, [address] [address] PCP - General Family Medicine 01/15/16 Hand Ironer Relationship Specialty Start Date End Date Sherman Larson, [address] [address] PCP - General Family Medicine 01/15/16 Hand Ironer Relationship Specialty Start Date End Date Sherman Larson, [address] [phone] PCP - General Family Medicine 01/15/16 Hand Ironer Relationship Specialty Start Date End Date Sherman Larson, [address] [phone] PCP - General Family Medicine 01/15/16 Hand Ironer Relationship Specialty Start Date End Date Sherman Larson, [address] [phone] PCP - General Family Medicine 01/15/16 Goals [...] or prosecute any alcohol or drug abuse patient.[facility] the event this information is protected by the Federal Confidentiality of Alcohol and Drug Abuse Patient Records regulations: The Federal rules restrict any use of the information to criminally investigate or prosecute any alcohol or drug abuse patient.[facility] Hospital[facility] the event this information is protected by the Federal Confidentiality of Alcohol and Drug Abuse Patient Records regulations: The Federal rules restrict any use of the information to criminally investigate or prosecute any alcohol or drug abuse patient.[facility] the event this information is protected by the Federal Confidentiality of Alcohol and Drug Abuse Patient Records regulations: The Federal rules restrict any use of the information to criminally investigate or prosecute any alcohol or drug abuse patient.[facility] Hospital[facility] the event this information is protected by the Federal Confidentiality of Alcohol and Drug Abuse Patient Records regulations: The Federal rules restrict any use of the information to criminally investigate or prosecute any alcohol or drug abuse patient.[facility] Hospital[facility] the event this information is protected by the Federal Confidentiality of Alcohol and Drug Abuse Patient Records regulations: The Federal rules restrict any use of the information to criminally investigate or prosecute any alcohol or drug abuse patient.[facility] Hospital[facility] the event this information is protected by the Federal Confidentiality of Alcohol and Drug Abuse Patient Records regulations: The Federal rules restrict any use of the information to criminally investigate or prosecute any alcohol or drug abuse patient.[facility] Hospital[facility] the event this information is protected by the Federal Confidentiality of Alcohol and Drug Abuse Patient Records regulations: The Federal rules restrict any use of the information to criminally investigate or prosecute any alcohol or drug abuse patient.[facility] Hospital[facility] the event this information is protected by the Federal Confidentiality of Alcohol and Drug Abuse Patient Records regulations: The Federal rules restrict any use of the information to criminally investigate or prosecute any alcohol or drug abuse patient.[facility] INFORMATION SOURCE (unrecogn ized section and content) DATE CREATED AUTHOR 02/05/2023 [facility] DATE CREATED AUTHOR AUTHOR'S ORGANIZ ATION 09/24/2023 [facility] DATE CREATED AUTHOR AUTHOR'S ORGANIZ ATION 11/08/2023 [facility] FOR RECORDS PERTAINING TO PATIENTS WHO [...] BE BASED ON THE PRIMARY CLINICAL RECORDS. [employer] [facility]. provides no warranty or guarantee of the accuracy or completeness of information in this document.
== END 2023-11-20 08:50 | disposition home or self-care (01) ==
LOC: VC 08:56
PROVIDERS: PCP Radiology Diagnostic Radiology; Visit Provider Radiology Diagnostic Radiology
DX: I80.02 Phlebitis and thrombophlebitis of superficial vessels of left lower extremity (principal)
CPT/HCPCS: 93971; G0463

== ENCOUNTER 2023-11-24 07:55 | Outpatient (OUT) | payer MEDICARE, OTHER, SELFPAY ==
--- NOTE | 2023-11-24 07:58 | VEIN_ITS ---
[address] [address] Patient Name: OXANA CASTRO MRN: [id number] date: 1955 Sex: F Assigned Patient Location: Current Patient Location: Accession/Order Number: [id number] Exam Date: 11/24/2023 08:00 Report Date: 11/24/2023 09:22 At the request of: COLTON HAMLIN Procedure: VC INJ Foam Sclerosant WUS ARCHITECTURAL MANAGER PROCEDURE: VC INJ Foam Sclerosant WUS ARCHITECTURAL MANAGER COMPARISON: None. HISTORY: Pain due to varicose veins of bilateral legs I83.813 Pre-operative Diagnosis: CEAP class C6 venous insufficiency with pain, tenderness, edema and incompetent left saphenous and varicose vein(s), chronic venous insufficiency left leg secondary to venous incompetence Post-operative Diagnosis: CEAP class C6 venous insufficiency with pain, tenderness, edema and incompetent left saphenous and varicose vein(s), chronic venous insufficiency left leg secondary to venous incompetence Procedure Performed: 1. Ultrasound-guided microfoam chemical ablation with Varithenaregistered 2. Intraoperative ultrasound guidance Anesthesia: None Indications for Procedure: 68-year-old female who presents with a very long history of pain swelling and venous stasis ulcerations. The patient failed conservative medical therapy including medical compression stockings, exercise and analgesics. Prior procedures include endovenous laser ablation and Microfoam chemical ablation. Multiple incompetent varicosities of the left leg. Duplex scan showed reflux and enlarged diameters up to 5 mm. The patient underwent informed consent including management options where the complications of infection, bleeding, pain, and skin injury were discussed. Particular attention was spent discussing thrombus extension and deep vein thrombosis as well as the possibility of pulmonary embolus and treatment with oral or injectable blood thinners. Procedure: The patient walked to the procedure room. All applicable staff donned appropriate apparel. A procedure timeout was performed to confirm correct patient, correct extremity, correct procedure, and correct room set-up including presence of all applicable supplies, devices, and drugs. A duplex ultrasound, performed by myself confirmed the location and incompetence of branch saphenous varicosities and their course was marked on the skin together with the dilated tributaries. The extent of treatment of the vein and the associated varicosities was determined through ultrasound mapping. The skin was prepped and then punctured with a butterfly needle and advanced under ultrasound guidance. The Varithenaregistered canister was activated and the canister was primed and purged as required in the instructions for use. Varithenaregistered was drawn into a sterile syringe. The following injections were made: 6 cc injected into a 5 mm varicose vein mid anterior left ruiz 6 cc injected into a 4 mm varicose vein anterior proximal left ruiz 3 cc injected into a 3 mm varicose vein medial left ankle Varithenaregistered was slowly administered at 0.5-1.0 cc/second with close observation by ultrasound of its course in the vessels. Total volume utilized was: . Following administration of Varithenaregistered the leg was elevated and the patient was asked to repeatedly dorsiflex the ankle to limit flow of Varithenaregistered into perforating veins. Once appropriate spasm had been confirmed in the treated veins, the vascular catheter was removed from the leg and light pressure was applied over the puncture site for hemostasis. The common femoral and deep superficial veins were then evaluated for flow and compressibility prior to dressing placement. The lower extremity was kept elevated at 45 degrees above the horizontal and cording material was applied over the saphenous segments and tributaries to allow for eccentric compression over the target vessels including the targeted saphenous vein(s). A multilayer dressing was applied consisting of foam pads, coban and thigh-high 20-30 mm Hg compression elastic support hose were placed on the patient. The leg was lowered only after compression had been applied and the patient was immediately ambulatory. The patient ambulated 10 minutes under supervision and was without apparent concerns at time of release. Post-care instructions include advising patient to keep post-treatment bandages in place and dry for 48 hours, avoid extended periods of inactivity, avoid heavy exercise for one week, wear compression stockings on the treated leg continuously for two weeks, to walk daily for 10 minutes over the next month. The patient was instructed to take an anti-inflammatory medicine as needed and to follow up for color duplex scan of the Saphenous veins, the treated branch saphenous varicosities, the adjacent deep veins, and additional treatment within 7 days. PERSONNEL: Julien Panda RN Electronically authenticated by: COLTON HAMLIN Date: 11/24/2023 09:22
--- OUTSIDE RECORDS SUMMARY | 2023-11-24 07:58 | XMS_ITS | CCD ---
Author Name Unknown Address [address] [place] [address] Organization [facility] Team Providers Care Loft Worker Name Role Phone Rosanne Dumont Unavailable Sherman Larson Unavailable DO Sherman Larson Primary Care Provider DO Sherman Larson Attending Provider [phone] DO Dawn Sow Referring Provider Self, Referral Attending Provider Unavailable Sherman Larson DO Primary Care Provider [phone] Sherman Larson DO Primary Care Provider Heidi Sanchez Unavailable SHERMAN LARSON Primary Care Unavailable OSCAR, KHALED Referring Unavailable OSCAR, KHALED Attending Unavailable SHERMAN LARSON Primary Care Unavailable OSCAR, KHALED Attending Unavailable SHERMAN LARSON Primary Care Unavailable ЮЛИЯ ODOM Referring Unavailabl e SHERMAN LARSON Primary Care Unavailable DO Sherman Larson Primary Care Provider [phone] DO Sherman Larson Attending Provider [phone] WALTER Poole Attending Provider [phone] WALTER Dumont Other Provider WALTER Poole Attending Provider [phone] DO Sherman Larson Primary Care Provider Salvador, DO Whitaker Attending Provider Self, Referral Attending Provider Unavailable DO Sherman Larson Primary Care Provider [phone] WALTER Poole Attending Provider Self, Referral Attending Provider Unavailable DO Sherman Larson Attending Provider Eli, EMBEDDED FIRMWARE DEVELOPER-C Judith A Attending Provider [phone] Eli, Judith A Admitting Unavailable Eli, Judith [...] 300 mg by mouth once daily [place] Active 300 MG PO Daily March 24, [...] Drug Class(es) Dates Sig (Normalized) Sig (Original) [id number] 200 actuat albuterol 0.09 mg/actuat metered dose [...] Long-term current use of insulin; 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] Episodic Other aftercare (7 sources) 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 Onset: 09-10-2021 [...] Test Name Value Interpretation Reference Range Facility [facility] 11-04-2023 [employer] Visit (SP) Office (GYNML) MAGY CASTRO ([id number]) 1955 F Date Time Provider Department 11/04/23 12:45 PM ЮЛИЯ ODOM [facility] During your visit today, we recorded the following information about you: Temperature Pulse Respiration Blood pressure 96.8 degrees 69/minute 15/minute 140/73 Юлия Odom APRN.ASSEMBLER CLIP ON SUNGLASSES 11/07/2023 9:54 AM Signed DATE: 11/04/2023 PROBLEM: [...] present, cervix not involved HNPCC screening negative ER/IA: negative 2. Chemotherapy with Carboplatin and taxol [...] 06/2016 Pancre (more content not included)... Normal [facility] Superficial Wound Cultureon 09-15-2023 Superficial Wound Culture [...] RESISTANT TO ALL B-LACTAM DRUGS. PERFORMED BY: [place] [address] [place] [address] PATHOLOGIST SUPERVISOR [employer] PERRY M.D. Normal [facility] Comment on above: Performed By: #### C USUP #### [facility] [address] [place] [address] [facility] A1C HEMOGLOBINon 09-09-2023 HbA1c (Bld) [Mass fraction] 8.3 % [facility] Other Glucose - FINGER STICKon Glucose [Mass/Vol] 175 mg/dL [facility] Other HbA1c (Bld) [Mass fraction]o n 09-09-2023 A1C HEMOGLOBIN [facility] Other MM screening mammo BI w/CADo n 07-15-2023 MM screening mammo BI w/CAD [facility] Main Bode [address] [place] [id number] Mammography Report Signed Patient: Magy Castro MR#: [id number] : 1955 Acct:[id number] Age/Sex: 67 / F ADM Date: 07/15/23 Loc: [place] Room: Type: [facility] Attending Dr: Referral Self Copies to: Sherman [...] Jennifer Yarbrough M.D.07/15/2023 2:50 PM Dictation Location: [facility] Transcribed By: SAL 07/15/23 145 Dictated By: Jennifer Yarbrough MD 07/15/23 144 Signed By: 07/15/23 145 Normal [facility] Alanine aminotransferase [En zymatic activity/volume] in Serum or PlasmaOrdered By: Sherman Larson on 03-31-2023 ALT [Catalytic activity/Vol] 17 U/L 7-52 [facility] Albumin [Mass/volume] in Ser um or Plasma by Bromocresol green (BCG) dye binding methoOrdered By: Sherman Larson on 03-31-2023 Albumin BCG dye [Mass/Vol] 4.1 g/dL 3.5-5.7 [facility] Alkaline phosphatase [Enzyma tic activity/volume] in Serum or PlasmaOrdered By: Sherman Larson on 03-31-2023 ALP [Catalytic activity/Vol] 55 U/L 34-104 [facility] Aspartate aminotransferase [ Enzymatic activity/volume] in Serum or PlasmaOrdered By: Sherman Larson on 03-31-2023 AST [Catalytic activity/Vol] 14 U/L 13-39 [facility] Basophils Auto (Bld) [#/Vol] Ordered By: Sherman Larson on 03-31-2023 Basophils (Bld) [#/Vol] 0.0 10*3/uL 0.0-0.2 [facility] Basophils/100 WBC Auto (Bld) Ordered By: Sherman Larson on 03-31-2023 Basophils/100 WBC (Bld) 0.6 % . [facility] Bilirubin.total [Mass/volume ] in Serum or PlasmaOrdered By: Sherman Larson on 03-31-2023 Bilirubin [Mass/Vol] 0.5 mg/dL 0.3-1.0 [facility] Calcium [Mass/volume] in Ser um or PlasmaOrdered By: Sherman Larson on 03-31-2023 Calcium [Mass/Vol] 9.2 mg/dL 8.6-10.3 [facility] Carbon dioxide, total [Moles /volume] in Serum or PlasmaOrdered By: Sherman Larson on 03-31-2023 CO2 [Moles/Vol] 24.9 mmol/L 21.0-31.0 [facility] Chloride [Moles/volume] in S [place] or PlasmaOrdered By: Sherman Larson on 03-31-2023 Chloride [Moles/Vol] 103 mmol/L 98-107 [facility] Cholesterol [Mass/volume] in Serum or PlasmaOrdered By: Sherman Larson on 03-31-2023 Cholesterol [Mass/Vol] 144 mg/dL 140-200 [facility] Comment on above: Chol less than 200 m g/dl low riskChol 201-239 mg/dl borderline riskChol 240 mg/dl and greater high risk Cholesterol in LDL Calc [Mas s/Vol]Ordered By: Sherman Larson on 03-31-2023 Cholesterol in LDL [Mass/Vol] 61 mg/dL 0-100 [facility] Comment on above: LDL ATP III CLASSIFI CATIONLDL less than 100 mg/dL OptimalLDL 100-129 mg/dL Near or above optimalLDL 130-159 mg/dL Borderline highLDL 160-189 mg/dL HighLDL greater than 189 mg/dL Very high Cholesterol in VLDL Calc [Ma ss/Vol]Ordered By: Sherman Larson on 03-31-2023 Cholesterol in VLDL [Mass/Vol] 43 mg/dL [facility] Complete Blood Count Auto Di ffon 03-31-2023 Basophils (Bld) [#/Vol] 0.0 10*3/uL Normal 0.0-0.2 [facility] Comment on above: Order Comment: Reaso n for Exam Hyperlipidemia Result Comment: PERF ORMED BY: [place] [address] PATHOLOGIST SUPERVISOR [employer] LOC[employer] PERRY M.D. Performed By: #### C BC #### [facility] [address] [place] [address] [place] Basophils/100 WBC (Bld) 0.6 % Normal . [facility] Comment on above: Order Comment: Reaso n for Exam Hyperlipidemia Performed By: #### C BC #### [address] Eosinophils (Bld) [#/Vol] 0.1 10*3/uL Normal 0.0-0.45 [facility] Comment on above: Order Comment: Reaso n for Exam Hyperlipidemia Performed By: #### C BC #### [address] Eosinophils/100 WBC (Bld) 2.0 % Normal . [facility] Comment on above: Order Comment: Reaso n for Exam Hyperlipidemia Performed By: #### C BC #### [address] Erythrocyte distribution width (RBC) [Ratio] 17.0 % High 11.9-15.3 [facility] Comment on above: Order Comment: Reaso n for Exam Hyperlipidemia Performed By: #### C BC #### [address] Hematocrit (Bld) [Volume fraction] 43.0 % Normal 34.0-46.4 [facility] Comment on above: Order Comment: Reaso n for Exam Hyperlipidemia Performed By: #### C BC #### [address] Hemoglobin (Bld) [Mass/Vol] 13.9 g/dL Normal 11.8-15.4 [facility] Comment on above: Order Comment: Reaso n for Exam Hyperlipidemia Performed By: #### C BC #### [place] [address] [place] Lymphocytes (Bld) [#/Vol] 1.8 10*3/uL Normal 1.00-4.8 [facility] Comment on above: Order Comment: Reaso n for Exam Hyperlipidemia Performed By: #### C BC #### [place] [address] [place] Lymphocytes/100 WBC (Bld) 25.6 % Normal . [facility] Comment on above: Order Comment: Reaso n for Exam Hyperlipidemia Performed By: #### C BC #### [address] MCH (RBC) [Entitic mass] 26.9 pg Normal 24.7-34.3 [facility] Comment on above: Order Comment: Reaso n for Exam Hyperlipidemia Performed By: #### C BC #### [facility] [address] MCV (RBC) [Entitic vol] 82.9 fL Normal 80-[address] [facility] Comment on above: Order Comment: Reaso n for Exam Hyperlipidemia Performed By: #### C BC #### [facility] [address] Mean Corpuscular HGB Conc 32.4 g/dL Normal 32.0-35.0 [facility] Comment on above: Order Comment: Reaso n for Exam Hyperlipidemia Performed By: #### C BC #### [facility] [address] Monocytes (Bld) [#/Vol] 0.5 10*3/uL Normal 0.0-0.8 [facility] Comment on above: Order Comment: Reaso n for Exam Hyperlipidemia Performed By: #### C BC #### [place] [address] [place] Monocytes/100 WBC (Bld) 7.5 % Normal . [facility] Comment on above: Order Comment: Reaso n for Exam Hyperlipidemia Performed By: #### C BC #### [place] [address] [place] Neutrophils (Bld) [#/Vol] 4.6 10*3/uL Normal 1.8-7.7 [facility] Comment on above: Order Comment: Reaso n for Exam Hyperlipidemia Performed By: #### C BC #### [facility] [address] [place] [address] [place] Neutrophils/100 WBC (Bld) 64.3 % Normal . [facility] Comment on above: Order Comment: Reaso n for Exam Hyperlipidemia Performed By: #### C BC #### [facility] [address] [place] [address] [place] NRBC% 0.1 /100{WBC} Normal 0-0.5 [facility] Comment on above: Order Comment: Reaso n for Exam Hyperlipidemia Performed By: #### C BC #### [facility] [address] Platelet mean volume (Bld) [Entitic vol] 7.4 fL Normal 6.3-10.7 [facility] Comment on above: Order Comment: Reaso n for Exam Hyperlipidemia Performed By: #### C BC #### [facility] [address] Platelets (Bld) [#/Vol] 298 10*3/uL Normal 150-450 [facility] Comment on above: Order Comment: Reaso n for Exam Hyperlipidemia Performed By: #### C BC #### [address] RBC (Bld) [#/Vol] 5.19 10*6/uL High 3.60-5.00 [facility] Comment on above: Order Comment: Reaso n for Exam Hyperlipidemia Performed By: #### C BC #### [address] WBC (Bld) [#/Vol] 7.2 10*3/uL Normal 3.8-11.6 [facility] Comment on above: Order Comment: Reaso n for Exam Hyperlipidemia Performed By: #### C BC #### [address] Comprehensive Metabolic Pane riaz 03-31-2023 Albumin [Mass/Vol] 4.1 g/dL Normal 3.5-5.7 [facility] Comment on above: Order Comment: Reaso n for Exam Hyperlipidemia Performed By: #### C MP, LIPID #### [address] Albumin/Globulin [Mass ratio] 1.3 {ratio} Normal [facility] Comment on above: Order Comment: Reaso n for Exam Hyperlipidemia Performed By: #### C MP, LIPID #### [facility] [address] [place] [address] ALP [Catalytic activity/Vol] 55 U/L Normal 34-104 [facility] Comment on above: Order Comment: Reaso n for Exam Hyperlipidemia Performed By: #### C MP, LIPID #### [facility] [address] ALT [Catalytic activity/Vol] 17 U/L Normal 7-52 [facility] Comment on above: Order Comment: Reaso n for Exam Hyperlipidemia Performed By: #### C MP, LIPID #### [facility] [address] [place] [address] Anion gap [Moles/Vol] 12.2 mmol/L Normal 6.0-15.0 [facility] Comment on above: Order Comment: Reaso n for Exam Hyperlipidemia Performed By: #### C MP, LIPID #### [facility] [address] [place] [address] AST [Catalytic activity/Vol] 14 U/L Normal 13-39 [facility] Comment on above: Order Comment: Reaso n for Exam Hyperlipidemia Performed By: #### C MP, LIPID #### [facility] [address] [place] [address] Bilirubin [Mass/Vol] 0.5 mg/dL Normal 0.3-1.0 [facility] Comment on above: Order Comment: Reaso n for Exam Hyperlipidemia Performed By: #### C MP, LIPID #### [facility] [address] [place] [address] Calcium [Mass/Vol] 9.2 mg/dL Normal 8.6-10.3 [facility] Comment on above: Order Comment: Reaso n for Exam Hyperlipidemia Performed By: #### C MP, LIPID #### [facility] [address] [place] [address] [place] Chloride [Moles/Vol] 103 mmol/L Normal 98-107 [facility] Comment on above: Order Comment: Reaso n for Exam Hyperlipidemia Performed By: #### C MP, LIPID #### [facility] [address] [place] [address] CO2 [Moles/Vol] 24.9 mmol/L Normal 21.0-31.0 [facility] Comment on above: Order Comment: Reaso n for Exam Hyperlipidemia Performed By: #### C MP, LIPID #### [facility] [address] Creatinine [Mass/Vol] 0.68 mg/dL Normal 0.60-1.20 [facility] Comment on above: Order Comment: Reaso n for Exam Hyperlipidemia Performed By: #### C MP, LIPID #### [facility] [address] [place] [address] GFR/1.73 sq M.predicted MDRD (S/P/Bld) [Vol rate/Area] mL/min/{1.73_m2} Normal [facility] Comment on above: Order Comment: Reaso n for Exam Hyperlipidemia Performed By: #### C MP, LIPID #### [facility] [address] [place] [address] Globulin (S) [Mass/Vol] 3.1 g/dL Normal [facility] Comment on above: Order Comment: Reaso n for Exam Hyperlipidemia Performed By: #### C MP, LIPID #### [address] Glucose [Mass/Vol] 139 mg/dL High 70-100 [facility] Comment on above: Order Comment: Reaso n for Exam Hyperlipidemia Result Comment: [place] Glucose Reference Range is dependent on time and content of last meal. Glucose of more than 200 mg/dL in a nonstressed, ambulatory subject supports the diagnosis of Diabetes Mellitus. ADA recommended reference range Performed By: #### C MP, LIPID #### [facility] [address] [place] [address] Potassium [Moles/Vol] 4.1 mmol/L Normal 3.5-5.1 [facility] Comment on above: Order Comment: Reaso n for Exam Hyperlipidemia Performed By: #### C MP, LIPID #### [facility] [address] [place] [address] Protein [Mass/Vol] 7.2 g/dL Normal 6.4-8.9 [facility] Comment on above: Order Comment: Reaso n for Exam Hyperlipidemia Performed By: #### C MP, LIPID #### [address] Sodium [Moles/Vol] 136 mmol/L Normal 136-145 [facility] Comment on above: Order Comment: Reaso n for Exam Hyperlipidemia Performed By: #### C MP, LIPID #### [facility] [address] [place] [address] [place] Urea nitrogen [Mass/Vol] 19 mg/dL Normal 7-25 [facility] Comment on above: Order Comment: Reaso n for Exam Hyperlipidemia Performed By: #### C MP, LIPID #### [facility] [address] [place] [address] [place] Creatinine [Mass/volume] in Serum or PlasmaOrdered By: Sherman Larson on 03-31-2023 Creatinine [Mass/Vol] 0.68 mg/dL 0.60-1.20 [facility] Creatinine [Mass/volume] in UrineOrdered By: Rosanne Dumont on 03-31-2023 Creatinine (U) [Mass/Vol] 70.0 mg/dL 11.0-20.0 [facility] Eosinophils Auto (Bld) [#/Vo l]Ordered By: Sherman Larson on 03-31-2023 Eosinophils (Bld) [#/Vol] 0.1 10*3/uL 0.0-0.45 [facility] Eosinophils/100 WBC Auto (Bl d)Ordered By: Sherman Larson on 03-31-2023 Eosinophils/100 WBC (Bld) 2.0 % . [facility] Erythrocyte distribution wid th Auto (RBC) [Ratio]Ordered By: Sherman Larson on 03-31-2023 Erythrocyte distribution width (RBC) [Ratio] 17.0 % 11.9-15.3 [facility] Globulin Calc (S) [Mass/Vol] Ordered By: Sherman Larson on 03-31-2023 Globulin (S) [Mass/Vol] 3.1 g/dL [facility] Glucose [Mass/volume] in Ser um or PlasmaOrdered By: Sherman Larson on 03-31-2023 Glucose [Mass/Vol] 139 mg/dL 70-100 [facility] Comment on above: ADA recommended refe rence rangeRandom Glucose Reference Range is dependent on time and content of last meal. Glucose of more than 200 mg/dL in a nonstressed, ambulatory subject supports the diagnosis of Diabetes Mellitus. Hematocrit Auto (Bld) [Volum e fraction]Ordered By: Sherman Larson on 03-31-2023 Hematocrit (Bld) [Volume fraction] 43.0 % 34.0-46.4 [facility] Hemoglobin [Mass/volume] in BloodOrdered By: Sherman Larson on 03-31-2023 Hemoglobin (Bld) [Mass/Vol] 13.9 g/dL 11.8-15.4 [facility] Leukocytes [#/volume] correc kedar for nucleated erythrocytes in Blood by Automated counOrdered By: Sherman Larson on 03-31-2023 WBC corrected for nucl RBC Auto (Bld) [#/Vol] 7.2 10*3/uL 3.8-11.6 [facility] Lipid Panelon 03-31-2023 Cholesterol [Mass/Vol] 144 mg/dL Normal 140-200 [facility] Comment on above: Order Comment: Reaso n for Exam Hyperlipidemia Result Comment: Chol less than 200 mg/dl low risk Chol 201-239 mg/dl borderline risk Chol 240 mg/dl and greater high risk Performed By: #### C MP, LIPID #### [facility] [address] [place] [address] Cholesterol in HDL [Mass/Vol] 39 mg/dL Normal 23-92 [facility] Comment on above: Order Comment: Reaso n for Exam Hyperlipidemia Result Comment: HDL CHOL ATP-III CLASSIFICATION Cardiovascular Risk HDL > or equal to 60 mg/dL LOW HDL < 40 mg/dL HIGH Performed By: #### C MP, LIPID #### [facility] [address] [place] [address] Cholesterol.total/Zahra sterol in HDL [Mass ratio] 3.7 {ratio} Normal <5.0 [facility] Comment on above: Order Comment: Reaso n for Exam Hyperlipidemia Result Comment: PERF ORMED BY: [place] [address] PATHOLOGIST SUPERVISOR [employer] PERRY M.D. Performed By: #### C MP, LIPID #### [facility] [address] LDL Cholesterol,Calculated 61 mg/dL Normal 0-100 [facility] Comment on above: Order Comment: Reaso n for Exam Hyperlipidemia Result Comment: LDL ATP III CLASSIFICATION LDL less than 100 mg/dL Optimal LDL 100-129 mg/dL Near or above optimal LDL 130-159 mg/dL Borderline high LDL 160-189 mg/dL High LDL greater than 189 mg/dL Very high Performed By: #### C MP, LIPID #### [facility] [address] Triglyceride w/Reflex 218 mg/dL High 0-149 [facility] Comment on above: Order Comment: Reaso n for Exam Hyperlipidemia Result Comment: TRIG ATP III CLASSIFICATION TRIG less than 150 mg/dL Normal TRIG 150-199 mg/dL Borderline high TRIG 200-500 mg/dL High TRIG greater than 500 mg/dL Very high Standard traceable to the Center for Disease Conrtrol and Prevention (CDC) test method. Performed By: #### C MP, LIPID #### [facility] [address] VLDL CHOLESTEROL 43 mg/dL Normal [facility] Comment on above: Order Comment: Reaso n for Exam Hyperlipidemia Performed By: #### C MP, LIPID #### [facility] [address] Lymphocytes Auto (Bld) [#/Vo l]Ordered By: Sherman Larson on 03-31-2023 Lymphocytes (Bld) [#/Vol] 1.8 10*3/uL 1.00-4.8 [facility] Lymphocytes/100 WBC Auto (Bl d)Ordered By: Sherman Larson on 03-31-2023 Lymphocytes/100 WBC (Bld) 25.6 % . [facility] MCH Auto (RBC) [Entitic mass ]Ordered By: Sherman Larson on 03-31-2023 MCH (RBC) [Entitic mass] 26.9 pg 24.7-34.3 [facility] MCHC Auto (RBC) [Mass/Vol]Or dered By: Sherman Larson on 03-31-2023 MCHC (RBC) [Mass/Vol] 32.4 g/dL 32.0-35.0 [facility] MCV Auto (RBC) [Entitic vol] Ordered By: Sherman Larson on 03-31-2023 MCV (RBC) [Entitic vol] 82.9 fL 80-[address] [facility] MicroAlb Creat Ratio,Uon Albumin DL <= 20 mg/L (U) [Mass/Vol] 0.9 mg/dL Normal 0.0-1.8 [facility] Comment on above: Order Comment: Reaso n for Exam Type 2 diabetes mellitus Performed By: #### B 12, URMACRERAT #### [facility] [address] Creatinine, Urine (Random) 70.0 mg/dL High 11.0-20.0 [facility] Comment on above: Order Comment: Reaso n for Exam Type 2 diabetes mellitus Performed By: #### B 12, URMACRERAT #### [facility] [address] Microalbumin/Creatinine Ratio 12.0 mg/g Normal 0.0-30.0 [facility] Comment on above: Order Comment: Reaso n for Exam Type 2 diabetes mellitus Result Comment: 30-3 00 mg/g indicates an increased risk for diabetic nephropathy. Greater than 300 mg/g is consistent with clinical nephropathy. (Am. J. Kidney Disease 1995, 25:107) PERFORMED BY: [place] [address] PATHOLOGIST SUPERVIS[employer]Y M.D. Performed By: #### B 12, URMACRERAT #### [facility] [address] [place] [id number] [facility] Microalbumin [Mass/volume] i n UrineOrdered By: Rosanne Dumont on 03-31-2023 Albumin DL <= 20 mg/L (U) [Mass/Vol] 0.9 mg/dL 0.0-1.8 [facility] Monocytes Auto (Bld) [#/Vol] Ordered By: Sherman Larson on 03-31-2023 Monocytes (Bld) [#/Vol] 0.5 10*3/uL 0.0-0.8 [facility] Monocytes/100 WBC Auto (Bld) Ordered By: Sherman Larson on 03-31-2023 Monocytes/100 WBC (Bld) 7.5 % . [facility] Neutrophils Auto (Bld) [#/Vo l]Ordered By: Sherman Larson on 03-31-2023 Neutrophils (Bld) [#/Vol] 4.6 10*3/uL 1.8-7.7 [facility] Neutrophils/100 WBC Auto (Bl d)Ordered By: Sherman Larson on 03-31-2023 Neutrophils/100 WBC (Bld) 64.3 % . [facility] No Panel InformationOrdered By: Sherman Larson on 03-31-2023 Estimated GFR (CKD-EPI) > 60.0 mL/Min [facility] Creatinine Clearance (Chem N/A [facility] Nucleated erythrocytes [Pres ence] in Blood by Automated countOrdered By: Sherman Larson on 03-31-2023 Nucleated RBC Auto Ql (Bld) 0.1 /100{WBC} 0-0.5 [facility] Platelet mean volume Auto (B ld) [Entitic vol]Ordered By: Sherman Larson on 03-31-2023 Platelet mean volume (Bld) [Entitic vol] 7.4 fL 6.3-10.7 [facility] Platelets Auto (Bld) [#/Vol] Ordered By: Sherman Larson on 03-31-2023 Platelets (Bld) [#/Vol] 298 10*3/uL 150-450 [facility] Potassium [Moles/volume] in Serum or PlasmaOrdered By: Sherman Larson on 03-31-2023 Potassium [Moles/Vol] 4.1 mmol/L 3.5-5.1 [facility] Protein [Mass/volume] in Ser um or PlasmaOrdered By: Sherman Larson on 03-31-2023 Protein [Mass/Vol] 7.2 g/dL 6.4-8.9 [facility] RBC Auto (Bld) [#/Vol]Ordere d By: Sherman Larson on 03-31-2023 RBC (Bld) [#/Vol] 5.19 10*6/uL 3.60-5.00 [facility] Serum or plasma albumin/glob ulin mass ratioOrdered By: Sherman Larson on 03-31-2023 Albumin/Globulin [Mass ratio] 1.3 {ratio} [facility] Serum or plasma anion gap de terminationOrdered By: Sherman Larson on 03-31-2023 Anion gap [Moles/Vol] 12.2 mmol/L 6.0-15.0 Fi relaCount includes the [facility] Serum or plasma high density lipoprotein (HDL) cholesterol measurementOrdered By: Sherman Larson on 03-31-2023 Cholesterol in HDL [Mass/Vol] 39 mg/dL 23-92 [facility] Comment on above: HDL CHOL ATP-III CLA SSIFICATION Cardiovascular RiskHDL > or equal to 60 mg/dL LOWHDL < 40 mg/dL HIGH Serum or plasma total choles terol/high density lipoprotein (HDL) cholesterol mass ratOrdered By: Sherman Larson on 03-31-2023 Cholesterol.total/Zahra sterol in HDL [Mass ratio] 3.7 {ratio} <5.0 [facility] Sodium [Moles/volume] in Ser um or PlasmaOrdered By: Sherman Larson on 03-31-2023 Sodium [Moles/Vol] 136 mmol/L 136-145 [facility] Thyroid Stimulating Hormoneo n 03-31-2023 TSH Qn 2.43 m[IU]/L Normal 0.45-5.33 [facility] Comment on above: Order Comment: Reaso n for Exam Hyperlipidemia Result Comment: PERF ORMED BY: [place] [address] PATHOLOGIST SUPERVISOR [employer] PERRY M.D. Performed By: #### T SH3 #### [address] Thyrotropin [Units/volume] i n Serum or PlasmaOrdered By: Sherman Larson on 03-31-2023 TSH Qn 2.43 m[IU]/L 0.45-5.33 [facility] Triglyceride [Mass/volume] i n Serum or PlasmaOrdered By: Sherman Larson on 03-31-2023 Triglyceride [Mass/Vol] 218 mg/dL 0-[address] [facility] Comment on above: TRIG ATP III CLASSIF ICATIONTRIG less than 150 mg/dL NormalTRIG 150-199 mg/dL Borderline highTRIG 200-500 mg/dL High TRIG greater than 500 mg/dL Very highStandard traceable to the Center for Disease Conrtrol and Prevention (CDC) test method. Urea nitrogen [Mass/volume] in Serum or PlasmaOrdered By: Sherman Larson on 03-31-2023 Urea nitrogen [Mass/Vol] 19 mg/dL 05-05 [facility] Urine microalbumin/creatinin e mass ratioOrdered By: Rosanne Dumont on 03-31-2023 Albumin/Creatinine DL <= 20 mg/L (U) [Mass ratio] 12.0 mg/g 0.0-30.0 [facility] Comment on above: 30-300 mg/g indicate s an increased risk for diabetic nephropathy. Greater than 300 mg/g is consistent with clinical nephropathy. (Am. J. Kidney Disease 1995, 25:107) Vitamin B12on 03-31-2023 Cobalamin (Vitamin B12) [Mass/Vol] 221 pg/mL Normal 180-914 [facility] Comment on above: Order Comment: Reaso n for Exam Type 2 diabetes mellitus;B12 deficiency Result Comment: PERF ORMED BY: [place] [address] PATHOLOGIST SUPERVISOR [employer] P[employer]Y M.D. Performed By: #### B 12, URMACRERAT #### [address] Vitamin B12 ser/plasOrdered By: Rosanne Dumont on 03-31-2023 Cobalamin (Vitamin B12) [Mass/Vol] 221 pg/mL 180-914 [facility] WBC Auto (Bld) [#/Vol]Ordere d By: Sherman Larson on 03-31-2023 WBC (Bld) [#/Vol] 7.2 10*3/uL 3.8-11.6 [facility] ANES POSTPROC EVALon 023 ANES POSTPROC EVAL HNO ID: [id number] Author: Mavis Acuna MD Service: Anesthesiology Author Type: Anesthesiologist Type: Anesthesia Postprocedure Evaluation Filed: 02/20/2023 11:09 AM Note Text: POST ANESTHESIA EVALUATION NOTE : 1955 Procedure Summary Date: 02/19/23 Room / Location: [facility] - ENDO Anesthesia Start: 1412 Anesthesia [...] DATE: February 19, 2023 TIME: 1510 CSN: [id number] Normal [facility] ANES PRE-OPon 02-19-2023 ANES PRE-OP HNO ID: [id number] Author: Mavis Acuna MD Service: Anesthesiology Author Type: Anesthesiologist Type: Anesthesia Preprocedure Evaluation Filed: 02/19/2023 1:52 PM Note Text: ANESTHESIOLOGY DAY OF SURGERY NOTE : 1955 Procedure Information Date/Time: 02/19/23 1230 Scheduled providers: Lior Linton MD; SIGRID Neal; Mavis Acuna MD Procedure: EGD - THERAPEUTIC, EUS, OR TUBE INTERVENTIONS Location: [facility] - ENDO Estimated body mass index [...] mouth once (more content not included)... Normal [facility] CYTOLOGY NON-GYNon 3 CASE REPORT Normal [facility] Comment on above: Order Comment: Speci men Type: SPECIMEN OBTAINED BY ASPIRATION Ordering Facility: [facility] Address: [address] [place] [address] Result Comment: [facility] Cytology Report Case: [id number] Authorizing Provider: Lior Linton MD Collected: 02/19/2023 02:27 PM Ordering Location: [facility] Received: 02/20/2023 07:02 AM Endoscopy - ENDO Pathologist: Mat Montez MD Specimen: PANCREAS FINE NEEDLE ASPIRATION Performed By: #### C YTONON #### [facility] CLIA [id number] [facility] [address] LABORATORY CLIA [id number] [address] [place] [address] CLINICAL HISTORY Pancreatic cyst Normal [facility] Comment on above: Order Comment: Speci men Type: SPECIMEN OBTAINED BY ASPIRATION Ordering Facility: [facility] Address: [address] [place] [address] Performed By: #### C YTONON #### [facility] CLIA [id number] [facility] [address] LABORATORY CLIA [id number] [address] [place] [address] DIAGNOSIS COMMENT Normal [facility] Comment on above: Order Comment: Speci men Type: SPECIMEN OBTAINED BY ASPIRATION Ordering Facility: [facility] Address: [address] [place] [address] Result Comment: The specimen is limited in cellularity. Immunohistochemical stain for AE1/AE3 is positive. Synaptophysin, chromogranin and inhibin are negative. The immunohistochemical staining pattern supports the above diagnosis. Selected slides were reviewed in consultation with Dr. Oconnor, who concurs. Laboratory Developed Test (LDT) Disclaimer: Performance characteristics of immunohistochemical, immunofluorescent and chromogenic in-situ hybridization tests have been determined by the performing laboratory within [facility]???s Brad Mehta [facility] Pathology and Laboratory Medicine [place] ([facility], [facility], [facility], [facility], [facility], or [facility]) in a manner consistent with CLIA [...] condition. Performed By: #### C YTONON #### [facility] CLIA [id number] [address] [place] [address] LABORATORY CLIA [id number] [address] [place] [address] FINAL DIAGNOSIS [facility] Comment on above: Order Comment: Speci men Type: SPECIMEN OBTAINED BY ASPIRATION Ordering Facility: [facility] Address: [address] [address] Result Comment: A - PANCREAS FINE NEEDLE ASPIRATION Negative for malignant cells. See comment. The following cell blocks were associated with this case: A1 Cell Block, Alcohol Fixed Performed By: #### C YTONON #### [facility] CLIA [id number] [address] [place] [address] LABORATORY CLIA [id number] [address] [place] [address] FINAL PERFORMING LAB Normal [facility] Comment on above: Order Comment: Speci men Type: SPECIMEN OBTAINED BY ASPIRATION Ordering Facility: [facility] Address: [address] [address] Result Comment: Tech nical component, inspector process screening performed at [facility], [address] [place] [address] CLIA# [id number] Diagnostic interpretation performed at [facility], [address] [place] [address] CLIA# [id number] Prepress Operator: Quintin Sal M.D. Performed By: #### C YTONON #### [facility] CLIA [id number] LABORATORY CLIA [id number] [address] [place] [address] GROSS DESCRIPTION Normal [facility] Comment on above: Order Comment: Speci men Type: SPECIMEN OBTAINED BY ASPIRATION Ordering Facility: [facility] Address: [address] [place] [address] Result Comment: Rhea PANCHAL FINE NEEDLE ASPIRATION 30 cc cloudy red CytoLyt with material. ThinPrep and Cell Block prepared. Performed By: #### C YTONON #### [facility] CLIA [id number] [facility] [address] LABORATORY CLIA [id number] [address] [place] [address] OF [facility] EGD - THERAPEUTIC, EUS, OR T UBE INTERVENTIONSon 02-19-2023 [facility] GLUCOSE, BLOOD (POC)on 02-19 Glucose [Mass/Vol] 198 mg/dL Abnormal 74 - 99 mg/dL [facility] Glucose [Mass/Vol] 175 mg/dL Abnormal 74 - 99 mg/dL [facility] NURSING PROGon 02-19-2023 NURSING PROG HNO ID: [id number] Author: Lakhwinder Payan RN Service: Nursing Author [...] (RECOMMENDATION): None Electronically Signed By: Lakhwinder Payan [facility] NURSING PROG HNO ID: [id number] Author: Ekta Banegas RN Service: Nursing Author [...] REFERRAL (RECOMMENDATION): None Electronically Signed By: Ekta Baneags [facility] Upper EUSon 02-19-2023 [place] Gastrointestinal Endoscopy Patient Name: Magy Castro Procedure Date: 02/19/2023 1:57 PM Date of : 1955 Admit Type: Outpatient Age: 67 Room: [address] [address] Gender: Female Note Status: Finalized Attending MD: [...] on cytopathology. Procedure Code(s): --- Professional --- 91301, Esophagogastroduodenos copy, flexible, (more content not included)... Normal [facility] A1C HEMOGLOBINon 02-10-2023 HbA1c (Bld) [Mass fraction] 7.3 % [facility] Other Glucose - FINGER STICKon Glucose [Mass/Vol] 167 mg/dL [facility] Other HbA1c (Bld) [Mass fraction]o n 02-10-2023 A1C HEMOGLOBIN [facility] Other [facility] 02-04-2023 [facility] Telephone ([facility]) MAGY CASTRO ([id number]) 1955 F Date Time Provider Department 02/04/23 ORVILLE ZAMARRIPA (SAMARIA) [facility] During your visit today, we recorded the following information about you: Orville Zamarripa LPN 02/04/2023 11:44 AM Signed Scanned into patients chart Allergies As of Date: 02/04/2023 (No Known Allergies) Date Reviewed: 02/02/2023 Reviewed by: Christophe Shaffer APRN.ASSEMBLER CLIP ON SUNGLASSES - Fully Assessed Reason for Visit: Received [...] by ORVILLE ZAMARRIPA LPN on 02/04/23 Normal [facility] HISTORY PHYSICALon 3 HISTORY PHYSICAL HNO ID: [id number] Author: Christophe Shaffer APRN.ASSEMBLER [employer] Service: ? Author Type: Nurse Practitioner Type: HANDP Filed: 02/04/2023 5:52 PM Note Text: PREANESTHESIA CONSULT CLINIC TELEHEALTH VISIT Patient has been identified by name and date of : Yes This is a virtual visit using [employer] video visit. It require patient-provider interaction for [...] (more content not included)... Normal [facility] Myesha 01-22-2023 RAHEEM Telephone ([place]) MAGY CASTRO ([id number]) 1955 F Date Time Provider Department 01/22/23 LIOR LINTON During your visit today, we recorded the following information about you: Heidi Parson RN 01/22/2023 12:18 PM Signed MRI images available for review. Heidi Parson RN ----- Message ----- From: Heidi Parson RN Sent: 01/13/2023 10:46 AM EDT To: Heidi Parson RN Spoke with pt. She will obtain MRCP disc from [facility] and send to our office. Heidi Parson RN ----- Message ----- From: Lior Linton MD Sent: 01/12/2023 5:41 PM EDT To: MARCEL Love: Please let me know when the MRCP disc is loaded into [facility] for my review. Lior Linton MD 02/03/2023 7:25 AM Signed MRCP images were reviewed. The images were downloaded to [facility] and the MRI was done at [facility]. Agree with the findings of the [...] Encounter Status:Closed by HEIDI PARSON on 02/03/23 [facility] CNOVon 01-07-2023 CNOV Office Visit (PAT ) MAGY CASTRO ([id number]) 1955 F Date Time Provider Department 01/07/23 [...] alcohol. 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 Her brother age 51 from pancreatic [...] (more content not included)... Normal [facility] HISTORY PHYSICALon HISTORY PHYSICAL HNO ID: [id number] Author: Lior Linton MD Service: ? Author [...] alcohol. 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 Her brother age 51 from pancreatic [...] (more content not included)... Normal [facility] A1C HEMOGLOBINon 11-04-2022 HbA1c (Bld) [Mass fraction] 7.9 % [facility] Other Glucose - FINGER STICKon Glucose [Mass/Vol] 212 mg/dL [facility] Other HbA1c (Bld) [Mass fraction]o n 11-04-2022 A1C HEMOGLOBIN [facility] Other Myesha 10-30-2022 RAHEEM Telephone ([place]) MAGY CASTRO ([id number]) 1955 F Date Time Provider Department 10/30/22 LIOR LINTON During your visit today, we recorded the following information about you: Blanca Norton 10/30/2022 11:15 AM Signed Pt saw Dr. Rowland, at [facility] and was given Dr. Linton's [...] Date Reviewed: 09/17/2022 Reviewed by: Юлия Odom APRN.[facility] - Fully Assessed Reason for Visit: Orders [281] Prescriptions as of 10/30/2022 - aspirin, enteric [...] Status:Closed by ROMAIN VELA on 10/30/22 Normal [facility] CREATININE [facility] 09-11-2022 Creatinine [Mass/Vol] 0.59 mg/dL Normal 0.58-0.96 [facility] Comment on above: Order Comment: Speci men Type: BLOOD SPECIMENOrdering Facility: [facility] Address: [address] [address] Performed By: #### C RET1 ####[facility] LAB[facility] [id number] [place] [address] ESTIMATED GLOMERULAR FILTRATION RATE 98 mL/min/1.73m??? Normal >=60 [facility] Comment on above: Order Comment: Speci men Type: BLOOD SPECIMENOrdering Facility: [facility] Address: [address] [place] [address] Result Comment: Zoila mated Glomerular Filtration Rate [...] actual GFR. Performed By: #### C RET1 ####[facility] LAB[facility] [id number] [place] [address] CT ABD/PEL W IVCONon 12-01-[address] ABD/PEL W IVCON * * *Final Report* * * DATE OF EXAM: Sep 11 2022 10:33AM [facility] 0530 - CT ABD/PEL W [...] chest CT performed will be reported separately. Lead Pharmacy Technician (topogram) images: No additional findings. IMPRESSION: 1. [...] any questions regarding this interpretation, please call [phone]. If you are unable to reach us at the number above, please feel free to contact [facility] at [phone]. [id number] Normal [facility] CT CHEST W IVCONon 2 CT CHEST W IVCON * * *Final Report* * * DATE OF EXAM: Sep 11 2022 10:33AM [facility] 0539 - CT CHEST W [...] CT scan report for the abdomen findings. Lead Pharmacy Technician (topogram) images: No additional findings. IMPRESSION: 1. [...] any questions regarding this interpretation, please call [phone]. If you are unable to reach us at the number above, please feel free to contact [facility]Radiology at [phone]. [id number] Normal [facility] CNPAllison 08-13-2022 CNPN Telephone (PETSAN) MAGY CASTRO ([id number]) 1955 F Date Time Provider Department 08/13/22 LAVINIA GODFREY During your visit today, we recorded the following information about you: Lavinia Godfrey RN 08/13/2022 10:57 AM Signed Please sign pending Cre order for Magy Castro for upcoming CT with contrast on 09/11/22. Thank you. Lavinia Godfrey RN Allergies As of Date: 08/13/2022 (No Known Allergies) Date Reviewed: 09/19/2021 Reviewed by: Юлия Odom APRN.ASSEMBLER CLIP [employer] SUNGLASSES - Fully Assessed Reason for Visit: Orders [681] Primary Visit Diagnosis:Malignant neoplasm of body of uterus, unspecified site (HCC) [C54.9] Order(s):CREATININE BLD [SQCRET] Order #: [id number] FUTURE Prescriptions as of 08/15/2022 - aspirin, [...] Status:Closed by ЮЛИЯ ODOM on 08/15/22 Normal [facility] A1C HEMOGLOBINon 07-21-2022 HbA1c (Bld) [Mass fraction] 8.2 % [facility] Other Glucose - FINGER STICKon Glucose [Mass/Vol] 243 mg/dL [facility] Other HbA1c (Bld) [Mass fraction]o n 07-21-2022 A1C HEMOGLOBIN [facility] Other A1C HEMOGLOBINon 04-09-2022 HbA1c (Bld) [Mass fraction] 7.1 % [facility] Other Glucose - FINGER STICKon Glucose [Mass/Vol] 253 mg/dL [facility] Other HbA1c (Bld) [Mass fraction]o n 04-09-2022 A1C HEMOGLOBIN [facility] Other A1C HEMOGLOBINon 12-18-2021 HbA1c (Bld) [Mass fraction] 7 % [facility] Other Glucose - FINGER STICKon Glucose [Mass/Vol] 200 mg/dL [facility] Other HbA1c (Bld) [Mass fraction]o n 12-18-2021 A1C HEMOGLOBIN [facility] Other A1C HEMOGLOBINon 09-10-2021 HbA1c (Bld) [Mass fraction] 7.2 % [facility] Other Glucose - FINGER STICKon Glucose [Mass/Vol] 247 mg/dL [facility] Other HbA1c (Bld) [Mass fraction]o n 09-10-2021 A1C HEMOGLOBIN [facility] Other Vital Signs Date Time Vital Sign Value Performing Clinician Facility 10-19-2023 08:30-0500 Body height 161.29 cm Sherman Larson Other [facility] Other 10-19-2023 08:30-0500 Body mass index (BMI) [Ratio] 45.16 kg/m2 Sherman Larson Other [facility] Other 10-19-2023 08:30-0500 Body weight 117.48 kg Sherman Larson Other [facility] Other 10-19-2023 08:30-0500 Diastolic blood pressure 70 mm[Hg] Sherman Larson Other [facility] Other 10-19-2023 08:30-0500 Respiratory rate 18 /min Sherman Larson Other [facility] Other 10-19-2023 08:30-0500 SaO2% (BldA) [Mass fraction] 98 % Sherman Larson Other [facility] Other 10-19-2023 08:30-0500 Systolic blood pressure 126 mm[Hg] Sherman Larson Other [facility] Other 09-09-2023 09:45-0500 Body height 161.29 cm Tondra Mapus Other [facility] Other 09-09-2023 09:45-0500 Body mass index (BMI) [Ratio] 45.97 kg/m2 Tondra Mapus Other [facility] Other 09-09-2023 09:45-0500 Body weight 119.61 kg Tondra Mapus Other [facility] Other 09-09-2023 09:45-0500 Diastolic blood pressure 75 mm[Hg] Tondra Mapus Other [facility] Other 09-09-2023 09:45-0500 Respiratory rate 18 /min Tondra Mapus Other [facility] Other 09-09-2023 09:45-0500 SaO2% (BldA) [Mass fraction] 97 % Tondra Dumont Other [facility] Other 09-09-2023 09:45-0500 Systolic blood pressure 116 mm[Hg] Tona Tejasus Other [facility] Other 06-29-2023 09:36-0400 Body height 160.02 cm DO Sherman Larson Work Phone: [facility] 06-29-2023 09:36-0400 Body mass index (BMI) [Ratio] 46 kg/m2 DO Sherman Rothmans Work Phone: [facility] 06-29-2023 09:36-0400 Body weight 117.93 kg DO Sherman Larson Work Phone: [facility] 06-29-2023 09:30-0400 Body temperature 97.6 [degF] DO Sherman Larson Work Phone: [facility] 06-29-2023 09:30-0400 Diastolic blood pressure 70 mm[Hg] DO Shermanleonor Rothmans Work Phone: [facility] 06-29-2023 09:30-0400 Heart rate 92 /min DO Sherman Rothmans Work Phone: [facility] 06-29-2023 09:30-0400 Respiratory rate 20 /min DO Sherman Rothmans Work Phone: [facility] 06-29-2023 09:30-0400 Systolic blood pressure 145 mm[Hg] DO Sherman Reys Work Phone: [facility] 04-30-2023 09:07-0400 Body height 162.56 cm DO Shermanleonor Rothmans Work Phone: [facility] 04-30-2023 09:07-0400 Body mass index (BMI) [Ratio] 44.6 kg/m2 DO Sherman Kuns Work Phone: [facility] 04-30-2023 09:07-0400 Body weight 117.93 kg DO Sherman Kuns Work Phone: [facility] 04-30-2023 08:58-0400 Body temperature 97.7 [degF] DO Sherman Kuns Work Phone: [facility] 04-30-2023 08:58-0400 Diastolic blood pressure 89 mm[Hg] DO Sherman Kuns Work Phone: [facility] 04-30-2023 08:58-0400 Heart rate 88 /min DO Sherman Kuns Work Phone: [facility] 04-30-2023 08:58-0400 Respiratory rate 18 /min DO Sherman Kuns Work Phone: [facility] 04-30-2023 08:58-0400 Systolic blood pressure 113 mm[Hg] DO Sherman Kuns Work Phone: [facility] 03-30-2023 09:02-0400 Body temperature 97.8 [degF] DO Sherman Kuns Work Phone: [facility] 03-30-2023 09:02-0400 Diastolic blood pressure 79 mm[Hg] DO Sherman Kuns Work Phone: [facility] 03-30-2023 09:02-0400 Heart rate 97 /min DO Sherman Kuns Work Phone: [facility] 03-30-2023 09:02-0400 Respiratory rate 20 /min DO Sherman Kuns Work Phone: [facility] 03-30-2023 09:02-0400 Systolic blood pressure 138 mm[Hg] DO Sherman Kuns Work Phone: [facility] 03-25-2023 14:58-0400 Body height 162.56 cm DO Sherman Kuns Work Phone: [facility] 03-25-2023 14:58-0400 Body mass index (BMI) [Ratio] 44.6 kg/m2 DO Sherman Larson Work Phone: [facility] 03-25-2023 14:58-0400 Body weight 117.93 kg DO Sherman Larson Work Phone: [facility] 02-19-2023 15:15-0400 Diastolic blood pressure 58 mm[Hg] Lior Linton MD Work Phone: [facility] 02-19-2023 15:15-0400 Heart rate 85 /min Lior Linton MD Work Phone: [facility] 02-19-2023 15:15-0400 Respiratory rate 16 /min Lior Linton MD Work Phone: [facility] 02-19-2023 15:15-0400 SaO2% (BldA) [Mass fraction] 99 % Lior Linton MD Work Phone: [facility] 02-19-2023 15:15-0400 Systolic blood pressure 132 mm[Hg] Lior Linton MD Work Phone: [facility] 02-19-2023 14:44-0400 Body temperature 96.8 [degF] Lior Linton MD Work Phone: [facility] 02-10-2023 10:15-0400 Body height 161.29 cm Marceloa Tejasus Other [facility] Other 02-10-2023 10:15-0400 Body mass index (BMI) [Ratio] 46.2 kg/m2 Tondra Mapus Other [facility] Other 02-10-2023 10:15-0400 Body weight 120.2 kg Tondra Mapus Other [facility] Other 02-10-2023 10:15-0400 Diastolic blood pressure 77 mm[Hg] Tondra Mapus Other [facility] Other 02-10-2023 10:15-0400 Respiratory rate 18 /min Tondra Mapus Other [facility] Other 02-10-2023 10:15-0400 SaO2% (BldA) [Mass fraction] 98 % Tondra Mapus Other [facility] Other 02-10-2023 10:15-0400 Systolic blood pressure 138 mm[Hg] Tondra Mapus Other [facility] Other 02-02-2023 08:26-0400 Body height 161.3 cm [facility] 02-02-2023 08:26-0400 Body weight 117.94 kg [facility] 01-07-2023 09:51-0400 Body weight 120.2 kg Lior Linton MD Work Phone: [facility] 01-07-2023 09:51-0400 Diastolic blood pressure 86 mm[Hg] Lior Linton MD Work Phone: [facility] 01-07-2023 09:51-0400 Heart rate 91 /min Lior Linton MD Work Phone: [facility] 01-07-2023 09:51-0400 Systolic blood pressure 156 mm[Hg] Lior Linton MD Work Phone: [facility] 11-04-2022 10:15-0500 Body height 161.29 cm Tondra Mapus Other [facility] Other 11-04-2022 10:15-0500 Body mass index (BMI) [Ratio] 45.84 kg/m2 Tondra Mapus Other [facility] Other 11-04-2022 10:15-0500 Body weight 119.25 kg Tondra Mapus Other [facility] Other 11-04-2022 10:15-0500 Diastolic blood pressure 63 mm[Hg] Tondra Mapus Other [facility] Other 11-04-2022 10:15-0500 Respiratory rate 18 /min Tondra Mapus Other [facility] Other 11-04-2022 10:15-0500 SaO2% (BldA) [Mass fraction] 97 % Tondra Mapus Other [facility] Other 11-04-2022 10:15-0500 Systolic blood pressure 138 mm[Hg] Tondra Mapus Other [facility] Other 09-24-2022 09:45-0500 Body height 161.29 cm Sherman Larson Other [facility] Other 09-24-2022 09:45-0500 Body mass index (BMI) [Ratio] 45.57 kg/m2 Sherman Larson Other [facility] Other 09-24-2022 09:45-0500 Body weight 118.57 kg Sherman Larson Other [facility] Other 09-24-2022 09:45-0500 Diastolic blood pressure 62 mm[Hg] Sherman Larson Other [facility] Other 09-24-2022 09:45-0500 Respiratory rate 16 /min Sherman Larson Other [facility] Other 09-24-2022 09:45-0500 SaO2% (BldA) [Mass fraction] 96 % Sherman Larson Other [facility] Other 09-24-2022 09:45-0500 Systolic blood pressure 124 mm[Hg] Sherman Larson Other [facility] Other 09-17-2022 09:43-0500 Body temperature 97.59 [degF] Юлия Odom EVENT LIGHTING SPECIALIST.ASSEMBLER CLIP ON SUNGLASSES Work Phone: [facility] 09-17-2022 09:43-0500 Body weight 120.2 kg Юлия Odom EVENT LIGHTING SPECIALIST.ASSEMBLER [employer] Work Phone: [facility] 09-17-2022 09:43-0500 Diastolic blood pressure 55 mm[Hg] Юлия Odom EVENT LIGHTING SPECIALIST.ASSEMBLER CLIP ON SUNGLASS[employer] Work Phone: [facility] 09-17-2022 09:43-0500 Heart rate 81 /min Юлия Odom EVENT LIGHTING SPECIALIST.ASSEMBLER CL[employer] ON [employer]ASS[employer] Work Phone: [facility] 09-17-2022 09:43-0500 Respiratory rate 14 /min Юлия Odom EVENT LIGHTING SPECIALIST.ASSEMBLER CLIP ON SUNGLASS[employer] Work Phone: [facility] 09-17-2022 09:43-0500 Systolic blood pressure 143 mm[Hg] Юлия Odom EVENT LIGHTING SPECIALIST.ASSEMBLER CLIP ON SUNGLASSES Work Phone: [facility] 07-21-2022 10:15-0400 Body height 161.29 cm Rosanne Dumont Other [facility] Other 07-21-2022 10:15-0400 Body mass index (BMI) [Ratio] 46.03 kg/m2 Tondra Lazarous Other [facility] Other 07-21-2022 10:15-0400 Body weight 119.75 kg Tondra Mapus Other [facility] Other 07-21-2022 10:15-0400 Diastolic blood pressure 60 mm[Hg] Tondra Mapus Other [facility] Other 07-21-2022 10:15-0400 Respiratory rate 16 /min Tondra Mapus Other [facility] Other 07-21-2022 10:15-0400 SaO2% (BldA) [Mass fraction] 96 % Tondra Mapus Other [facility] Other 07-21-2022 10:15-0400 Systolic blood pressure 141 mm[Hg] Tondra Mapus Other [facility] Other 04-09-2022 10:15-0400 Body height 161.29 cm Tondra Mapus Other [facility] Other 04-09-2022 10:15-0400 Body mass index (BMI) [Ratio] 47.42 kg/m2 Tondra Mapus Other [facility] Other 04-09-2022 10:15-0400 Body weight 123.38 kg Tondra Mapus Other [facility] Other 04-09-2022 10:15-0400 Diastolic blood pressure 65 mm[Hg] Tondra Mapus Other [facility] Other 04-09-2022 10:15-0400 Respiratory rate 16 /min Tondra Mapus Other [facility] Other 04-09-2022 10:15-0400 SaO2% (BldA) [Mass fraction] 97 % Tondra Mapus Other [facility] Other 04-09-2022 10:15-0400 Systolic blood pressure 132 mm[Hg] Tondra Mapus Other [facility] Other 12-18-2021 10:45-0500 Body height 161.29 cm Tondra Mapus Other [facility] Other 12-18-2021 10:45-0500 Body mass index (BMI) [Ratio] 47.6 kg/m2 Tondra Mapus Other [facility] Other 12-18-2021 10:45-0500 Body weight 123.83 kg Tondra Mapus Other [facility] Other 12-18-2021 10:45-0500 Diastolic blood pressure 74 mm[Hg] Tondra Mapus Other [facility] Other 12-18-2021 10:45-0500 Respiratory rate 16 /min Tondra Mapus Other [facility] Other 12-18-2021 10:45-0500 SaO2% (BldA) [Mass fraction] 97 % Tondra Mapus Other [facility] Other 12-18-2021 10:45-0500 Systolic blood pressure 120 mm[Hg] Tondra Mapus Other [facility] Other 09-23-2021 09:30-0500 Body height 161.29 cm Sherman Larson Other [facility] Other 09-23-2021 09:30-0500 Body mass index (BMI) [Ratio] 47.42 kg/m2 Sherman Larson Other [facility] Other 09-23-2021 09:30-0500 Body weight 123.38 kg Sherman Larson Other [facility] Other 09-23-2021 09:30-0500 Diastolic blood pressure 60 mm[Hg] Sherman Larson Other [facility] Other 09-23-2021 09:30-0500 Respiratory rate 16 /min Sherman Larson Other [facility] Other 09-23-2021 09:30-0500 SaO2% (BldA) [Mass fraction] 98 % Sherman Larson Other [facility] Other 09-23-2021 09:30-0500 Systolic blood pressure 126 mm[Hg] Sherman Larson Other [facility] Other 09-10-2021 11:45-0500 Body height 161.29 cm Rosanne Dumont Other [facility] Other 09-10-2021 11:45-0500 Body mass index (BMI) [Ratio] 47.94 kg/m2 Rosanne Lazarous Other [facility] Other 09-10-2021 11:45-0500 Body weight 124.74 kg Tondra Lazarous Other [facility] Other 09-10-2021 11:45-0500 Diastolic blood pressure 63 mm[Hg] Tondra Mapus Other [facility] Other 09-10-2021 11:45-0500 Respiratory rate 20 /min Tondra Mapus Other [facility] Other 09-10-2021 11:45-0500 SaO2% (BldA) [Mass fraction] 96 % Tondra Mapus Other [facility] Other 09-10-2021 11:45-0500 Systolic blood pressure 121 mm[Hg] Tondra Mapus Other [facility] Other Encounters Encounter Date Encounter Type Care Provider Facility Start: 11-04-2023 End: 11-04-2023 ambulatory SHERMAN LARSON Facility:[facility] Start: 10-19-2023 End: 10-19-2023 ambulatory Sherman Larson Other [facility] Other Start: 10-19-2023 Office outpatient visit 25 minutes Sherman Larson [facility] Start: 09-15-2023 End: 09-15-2023 ambulatory Judith Benitez Facility:[facility] Start: 09-15-2023 End: 09-15-2023 ambulatory DO Sherman Larson Work Phone: [facility] Work Phone: Start: 09-15-2023 End: 09-15-2023 Departed Referred DO Sherman Larson Work Phone: [facility] [place] Work Phone: Start: 09-09-2023 (DM) Diabetes Tondra Mapus [facility] Start: 09-09-2023 Telephone encounter Tondra Tejasus [facility] Start: 09-09-2023 End: 09-09-2023 ambulatory Sherman Larson [facility] [employer] Other Start: 09-09-2023 Registered Recurring DO Sherman Larson Work Phone: [facility] Work Phone: Start: 07-15-2023 End: 07-15-2023 ambulatory Referral Self Facility:[facility] Start: 07-15-2023 End: 07-15-2023 ambulatory DO Sherman Larson Work Phone: [facility] Work Phone: Start: 07-15-2023 End: 07-15-2023 Patient encounter procedure DO Sherman Larson Work Phone: [facility] Work Phone: Start: 06-29-2023 End: 06-30-2023 ambulatory Sherman Reyfaby Facility:[facility] Start: 06-29-2023 End: 06-29-2023 ambulatory DO Sherman Larson Work Phone: [facility] Work Phone: Start: 06-29-2023 End: 06-29-2023 Discharged Recurring DO Sherman Larson Work Phone: [facility] [place] Work Phone: Start: 06-29-2023 Registered Recurring DO Sherman Larson Work Phone: [facility] [place] Work Phone: Start: 05-26-2023 Registered Recurring DO Sherman Larson Work Phone: [facility] Work Phone: Start: 04-30-2023 End: 04-30-2023 ambulatory Hien Poole Facility:[facility] Start: 04-30-2023 End: 04-30-2023 ambulatory DO Sherman Larson Work Phone: [facility] Work Phone: Start: 04-30-2023 End: 04-30-2023 Discharged Recurring DO Sherman Larson Work Phone: [facility] [place] Work Phone: Start: 04-05-2023 End: 04-05-2023 ambulatory Sherman Larson Other [facility] Other Start: 04-05-2023 Encounter by ji Larson [facility] Start: 04-02-2023 End: 04-02-2023 ambulatory Tondra Mapus Other [facility] Other Start: 04-02-2023 Telephone encounter Ton Mapus [facility] Start: 03-31-2023 End: 03-31-2023 ambulatory Tondra K Mapus Facility:[facility] Start: 03-31-2023 End: 03-31-2023 ambulatory DO Sherman Larson Work Phone: [facility] Work Phone: Start: 03-31-2023 End: 03-31-2023 Patient encounter procedure DO Sherman Larson Work Phone: [facility] Work Phone: Start: 03-30-2023 Registered Recurring DO Sherman Larson Work Phone: [facility] [place] Work Phone: Start: 02-19-2023 ambulatory Ivory Rizo francisco j [facility] Work Phone: [facility] Comment on above: antibiotic prescript ion Start: 02-19-2023 E-mail encounter fro m caregiver Ivory Stuart [facility] Work Phone: [facility] Start: 02-19-2023 End: 02-19-2023 Subsequent hospital visit by physician Lior Linton MD Work Phone: [facility] Comment on above: Pancreatic cyst [K86 .2] Start: 02-10-2023 (DM) Diabetes Marceloa Tim [facility] Start: 02-10-2023 End: 02-10-2023 ambulatory Rosanne Dumont Other [facility] Other Start: 02-10-2023 Registered Recurring DO Sherman Larson Work Phone: [facility] Work Phone: Start: 02-09-2023 ambulatory Lior Linton MD Work Phone: [facility] Start: 02-04-2023 Telephone encounter Orville Rocha (Industrial Editor) Hu nt Pre Anesthesia Comment on above: Received Outside Med [facility] Records (Lab Results) Start: 02-02-2023 End: 02-02-2023 Admission to establishment Pacc Main [facility] Start: 02-02-2023 End: 02-02-2023 ambulatory SHERMAN LARSON Pre Anesthesia Comment on above: Pre-op evaluation (P rimary Dx); Type 2 diabetes mellitus without complication, unspecified whether terminal press operator insulin use (HCC); Mixed hyperlipidemia; Endometrial cancer (HCC); Morbid obesity (HCC) Start: 02-02-2023 End: 02-02-2023 Preprocedural examination done Pacc Virtual Pre Anesthesia Start: 01-22-2023 Telephone encounter Lior page MD Work Phone: Gastroenterology Comment on above: Imaging available fo r review Start: 01-07-2023 End: 01-07-2023 ambulatory LIOR LINTON Facility:[facility] Start: 01-07-2023 End: 01-07-2023 Patient encounter procedure Lior Linton MD Work Phone: Gastroenterology Comment on above: Pancreatic cyst (Qian lakhwinder Dx); Family history of pancreatic cancer; History of endometrial cancer Start: 11-19-2022 ambulatory LIOR LINTON Facility:[facility] Start: 11-04-2022 (DM) Diabetes Tondra Tim [facility] Start: 11-04-2022 End: 11-04-2022 ambulatory Tondra Mapus Other [facility] Other Start: 11-02-2022 End: 11-02-2022 ambulatory Heidi Sanchez Other [facility] Other Start: 11-02-2022 Encounter by ji galaviz Heidi Crowleylinette [facility] Start: 10-30-2022 Telephone encounter Lior page MD Work Phone: Gastroenterology Comment on above: Orders Start: 10-14-2022 End: 10-14-2022 ambulatory Tondra Mapus Other [facility] Other Start: 10-14-2022 Telephone encounter Tondra Tim [facility] Start: 09-24-2022 End: 09-24-2022 ambulatory Sherman Larson Other [facility] Other Start: 09-24-2022 Office outpatient visit 15 minutes Sherman Larson [facility] Start: 09-17-2022 End: 09-17-2022 Follow-up encounter Юлия Odom APRN.ASSEMBLER CLIP ON SUNGLASSES Work Phone: Gynecology Comment on above: Encounter for follow -up surveillance of endometrial cancer (Primary Dx); Pancreatic cyst; Lung nodules Start: 09-17-2022 End: 09-17-2022 Patient encounter procedure Юлия Odom APRN.ASSEMBLER CLIP ON SUNGLASSES Work Phone: [facility] Start: 09-11-2022 End: 09-11-2022 ambulatory ЮЛИЯ ODOM Facility:[facility] Start: 08-13-2022 Telephone encounter Lavinia Godfrey RN R adiology [facility] CT Comment on above: Orders Start: 07-21-2022 (DM) Diabetes Tondra Mapus [facility] Start: 07-21-2022 End: 07-21-2022 ambulatory Tondra Mapus Other [facility] Other Start: 06-11-2022 End: 06-11-2022 Patient encounter procedure DO Sherman Larson Work Phone: [facility] Start: 04-09-2022 Registered Recurring DO Sherman Salvador Work Phone: [facility] Start: 04-09-2022 (DM) Diabetes Tondra Mapus [facility] Start: 04-09-2022 End: 04-09-2022 ambulatory Tondra Mapus Other [facility] Other Start: 03-25-2022 End: 03-25-2022 ambulatory Sherman Larson Other [facility] Other Start: 03-25-2022 Telephone encounter Sherman Larson [facility] Start: 03-12-2022 End: 03-12-2022 ambulatory Tondra Mapus Other [facility] Other Start: 03-12-2022 Telephone encounter Tondra Mapus [facility] Start: 01-29-2022 End: 01-29-2022 ambulatory Tondra Mapus Other [facility] Other Start: 01-29-2022 Telephone encounter Tondra Mapus [facility] Start: 12-18-2021 (DM) Diabetes Tondra Mapus [facility] Start: 12-18-2021 End: 12-18-2021 ambulatory Tondra Mapus Other [facility] Other Start: 10-18-2021 End: 10-18-2021 ambulatory Sherman Larson Other [facility] Other Start: 10-18-2021 Telephone encounter Sherman Larson [facility] Start: 09-23-2021 End: 09-23-2021 ambulatory Sherman Larson Other [facility] Other Start: 09-23-2021 Office outpatient visit 25 minutes Sherman Larson [facility] Start: 09-10-2021 (DM) Diabetes Tondra Tejasus [facility] Start: 09-10-2021 End: 09-10-2021 ambulatory Tondra Dumont Other [facility] Other Start: 11-04-2018 Preoperative state Rosanne Dawkins s Other [facility] Other Procedures Date Procedure Procedure Detail Performing [...] 09-15-2023 Superficial Wound Culture Superficial Wound Culture [facility] Start: 10-12-2022 ADVANCE DIRECTIVE DISCUSSION ADVANCE DIRECTIVE DISCUSSION [facility] Start: 10-12-2022 DEPRESSION ASSESSMENT DEPRESSION ASS ESSMENT [facility] Start: 09-11-2022 End: 11-11-2022 CREATININE BLD CREATININE BLD Lab Routine Malignant neoplasm of body of uterus, unspecified site (HCC) Expected: 09/11/2022, Expires: 11/11/2022 [facility] Work Phone: Comment on above: Expected: 09/11/2022 , Expires: 11/11/2022 Start: 06-12-2022 Influenza vaccination INFLUENZA (#1) [facility] Start: 10-12-2021 ADVANCE DIRECTIVE DISCUSSION ADVANCE DIRECTIVE DISCUSSION [facility] Start: 10-12-2021 DEPRESSION ASSESSMENT DEPRESSION ASS ESSMENT [facility] Start: 09-02-2021 COVID-19 VACCINE (4 - Booster for Pfizer series) COVID-19 VACCINE (4 - Booster for Pfizer series) [facility] Start: 2018 BONE DENSITY BONE DENSITY [facility] Start: 2003 SHINGRIX VACCINE (1 of 2) SHINGRIX VACCINE (1 of 2) [facility] Start: 05-04-2002 Urine microalbumin profile DTAP,TDAP,TD (1 - Tdap) [facility] Start: 1998 COLOGUARD (FIT-DNA) COLOGUARD (FIT-D NA) [facility] Start: 1998 Colonoscopy COLONOSCOPY [facility] Start: 1998 COLORECTAL CANCER SCREENING COLORECTAL CANCER SCREENING [facility] Start: [address] COLONOGRAPHY [facility] Start: 1998 FECAL OCCULT BLOOD FECAL OCCULT BLOO D [facility] Start: 1998 SIGMOIDOSCOPY SIGMOIDOSCOPY [facility] Start: 1993 Mammography MAMMOGRAM [facility] Start: 1971 ANNUAL PCP TEAM AGRICULTURAL ENGINEERING TECHNICIANS MISHA DISEASE VISIT ANNUAL PCP TEAM CHRONIC DISEASE VISIT [facility] Start: 1971 Hepatitis B surface antibody level LDL CHOLESTEROL [facility] Start: 1971 HEPATITIS C SCREENING HEPATITIS C SC REENING [facility] Start: 1963 3 comp foot exam completed DIABETIC FOOT EXAM [facility] Start: 1963 Hepatitis B screening URINE ALBUMIN:CREATININE RATIO [facility] Start: 1963 Hepatitis C antibody , confirmatory test DILATED RETINAL EXAM [facility] Start: 1959 PNEUMOCOCCAL: 65+ (1 - PCV) PNEUMOCOCCAL: 65+ (1 - PCV) [facility] Start: 1958 Hemoglobin A1c/Hemoglobin.total in Blood HBA1C [facility] Bacteria identified in Unspecified specimen by Aerobe culture [facility] CYTOLOGY NON-INSURANCE BILLING CLERK CYTOLOGY NON-GY N Lab Routine Pancreatic cyst Release Upon Ordering for 1 Occurrences starting 02/19/2023 [facility] Work Phone: Comment on above: Release Upon Orderin g for 1 Occurrences starting 02/19/2023 End: 01-08-2024 EGD - THERAPEUTIC, EUS, OR TUBE INTERVENTIONS EGD - THERAPEUTIC, EUS, OR TUBE INTERVENTIONS Endoscopy Routine Pancreatic cyst 1 Occurrences starting 01/07/2023 until 01/08/2024 [facility] Work Phone: Comment on above: 1 Occurrences starti ng 01/07/2023 until 01/08/2024 [facility] Immunizations Immunization Date Immunization Notes Care Provider Fa cili 02-18-2022 COVID-19 original vaccine, age 12+ yr, monovalent (PFIZER-BIONTECH - JARAMILLO TOP) Ivory Stuart [facility] Work Phone: [facility] 02-18-2022 COVID-19 Vaccine Pfizer - Documentation Purposes Only Sherman Larson Other [facility] Other 07-08-2021 COVID-19 Pfizer Sherman Kuns Other [facility] 07-08-2021 influenza, seasonal, injectable Shermanleonor Rothmans Other [facility] Other 01-03-2021 COVID-19 Pfizer Sherman Kuns Other [facility] 12-13-2020 COVID-19 Pfizer Sherman Kuns Other [facility] 09-21-2020 zoster vaccine recombinant Sherman Kuns Other [facility] Other 06-26-2020 zoster vaccine recombinant Sherman Kuns Other [employer] [facility] Other 06-20-2019 influenza, seasonal, injectable Tondrcamilo Lazarous Other [facility] Other 07-05-2018 influenza, injectabl e, quadrivalent, preservative free Lavinia Godfrey RN [facility] 06-01-2017 influenza, injectabl e, quadrivalent, preservative free Lavinia Godfrey RN [facility] 08-10-2009 novel [id number], preservative-free, injectable Lavinia Godfrey RN [facility] 05-03-2002 TD(adult) unspecifie d formulation Lavinia Godfrey RN [facility] Payers Date Payer Category Payer Medicare MEDICARE MEDICAR E A AND B [id number] 2018-Present [phone] [address] [address] [place] [address] Medicare [id number] 2018 Unknown [id number] 2018 Unknown [id number] 2018 Medicare [id number] 2018 Self-pay [id number] 2018 Unknown [id number] Unknown [id number] Unknown [id number] Unknown [id number] Unknown [id number] Unknown [id number] Unknown [id number] Unknown [id number] Social History Date Type Detail Facility Unknown if ever smoked [facility] Other Sex Assigned At Sex Assigned At Bir th [facility] Other Start: 07-30-2021 End: 06-29-2023 Tobacco smoking status NHIS Never smoked tobacco (finding) [facility] Start: 1955 Sex Assigned At Female F [facility] Start: 02-12-2018 End: 09-17-2022 Tobacco use and exposure Smokeless tobacco non-user [facility] Start: 04-03-2021 End: 02-02-2023 Alcohol intake Current non-drinker of alcohol (finding) [facility] Start: 09-01-2022 End: 09-11-2022 Exposure to SARS-CoV-2 (event) Not sure [facility] Medical Equipment Procedure Code Equipment Code [...] Type Note Facility 11-04-2023 Note HNO ID: [id number] Author: ЮЛИЯ ODOM APRN.ASSEMBLER CLIP ON SUNGLASSES Service: ? Author Type: Nurse Practitioner Type: [...] present, cervix not involved HNPCC screening negative ER/IA: negative 2. Chemotherapy with Carboplatin and taxol [...] cancer, +LVI, MMR nl Limited staging 12/2015 ([facility]) HDRB c 04/2016 Chemo x 5 c 06/2016 Pancreatic cyst work up with EUS, cytology 02/2023 negative. Followed by GI . PLAN: - doing well, exam normal - previous CT chest 09/2022 with lung nodules-will repeat now. - health maintenance up to date-mammogram completed at [facility] jul 2023-negative - continue fol (more content not included)... [facility] 10-19-2023 Evaluation note Encounter Date Diagnosis Assessment Notes Oct, Pancreatic cyst (ICD-10 - K86.2) Pancreatic cyst adenoma has been followed by [facility] with benign pathology results. Oct, History of uterine cancer (ICD-10 - Z85.42) The patient follows with [facility] woven label designer Юлия Odom. Oct, Venous insufficiency (ICD-10 - I87.2) The patient encouraged continuing plan of care as instructed by the [place] [facility].The patient [...] Blood work ordered today to evaluate coagulopathies. [facility] Other 11-29-2023 Evaluation note* Encounter Date Diagnosis Assessment Notes Treatment Notes Treatment Clinical Notes Aug, Type 2 diabetes mellitus (ICD-10 - E11.9) Managing type 2 diabetes material was published 1. Uncontrolled, Type 2 diabetes A1C 8.3% 2. Blood glucose levels above target. According to [employer] 2 cgm download 08/27/2023- 023 Avg glucose [...] High blood pressure material was published Aug, care home current use of insulin (ICD-10 - Z79.4) Aug, B12 deficiency (ICD-10 - E53.8) Good food sources of vitamin B12 material was published 03/2023 Vit b12 221 Aug, BMI 45.0-49.9, adult (ICD-10 - Z68.42) Setting weight-loss goals material was published 6 pound weight loss from last visit, continue with weight loss efforts Aug, Skin abnormalities (ICD-10 - L98.9) Referral to dermatology [facility] Other 11-29-2023 Evaluation note* Encounter Date Diagnosis Assessment Notes Treatment Notes Treatment Clinical Notes Aug, Skin abnormalities (ICD-10 - L98.9) [facility] Other 09-18-2023 Progress note Author Hien Poole [facility] June 29, 2023 9:41am Note Date/Time June 29, 2023 9:36am [facility] [address] [place] [address] Wound Center Provider Note Signed Patient: Magy Castro MR#: [id number] : 1955 Acct:[id number] Age/Sex: 67 / F Copies to: Sherman Larson,DO Hien Poole, EVENT LIGHTING SPECIALIST~ HPI Date of Visit Date of Visit: Date of Service: 06/29/2023 Time of Service: 09:35 Narrative HPI: 06/29/23 Debbie is a 67 year old female presenting to [facility] wound care for a follow up visit for eval and treatment of RLE ulcer that appear d/t venous and lymphedema etiologies. She has been a patient here in the past. Urgo k2 wrap will be used along with topical steroid and she will present here for dressings.We spoke about vascular and she did has been having her venous procedures in [place]. Weight loss and elevation and compression and [...] start?: Early May 2023 Mode of Arrival/ Java Sybase Developer: Personal vehicle Lives with:: Spouse Appetite Description: Within Normal Limits Who helps w/ dressing change?: Wound Care Dept Why Do You Need Help?: Can't Reach Ulcer Smoking Status: Never smoker [facility] Medical History (Updated 06/29/23 @ [...] By: <Electronically signed by WALTER Poole> 06/29/2341 [facility] Work Phone: 1(453) 685-885509-11-2023 Progress note Author Hien Poole [facility] June 22, 2023 1:48pm Note Date/Time June 22, 2023 1:48pm [facility] [address] [place] [address] Wound Center Provider Note Signed Patient: Magy Castro MR#: [id number] : 1955 Acct:[id number] Age/Sex: 67 / F Copies to: Sherman Larson,DO Hien Poole APRN~ HPI Date of Visit Date of Visit: Date of Service: 06/22/2023 Time of Service: 13:44 Subjective Pain Right Lower Leg: Pain Intensity: 0 Wound/Ulcer History When did wound start?: Early May 2023 Mode of Arrival/ Java Sybase Developer: Personal vehicle Lives with:: Spouse Appetite Description: Within Normal Limits Who helps w/ dressing change?: Wound Care Dept Why Do You Need Help?: Can't Reach Ulcer Smoking Status: Never smoker [facility] Medical History (Updated 06/22/23 @ [...] Appearance: Beefy Red, Epithelial Tissue or Bridge, Ernest and Yellow Surrounding Tissue Appearance: Bright Red [...] <Electronically signed by WALTER Poole> 06/22/23 1348 [facility] Work Phone: 1(871) 219-829607-10-2023 Progress note Author Hien Poole [facility] April 20, 2023 9:12am Note Date/Time April 20, 2023 9:12 am [facility] [address] [place] [address] Wound Center Provider Note Signed Patient: Magy Castro MR#: [id number] : 1955 Acct:[id number] Age/Sex: 67 / F Copies to: DO Hien Taylor APRN~ HPI Date of Visit Date of Visit: Date of Service: 04/20/2023 Time of Service: 09:10 Narrative HPI: 03/25/23 Debbie is a 67 year old female presenting to [facility] wound care for an initial visit for [...] interested in seeing the vascular group in [place] but she wants to wait at this [...] topically to the right leg, will do [facility] referral today, continues to take the horse chestnut and probiotics Subjective Pain Left Lower Leg: Pain Intensity: 0 Right Lower Leg: Pain Intensity: 0 Wound/Ulcer History When did wound start?: July 2022 Mode of Arrival/ Java Sybase Developer: Personal vehicle Lives with:: Spouse Appetite Description: Within Normal Limits Who helps w/ dressing change?: Wound Care Dept Why Do You Need Help?: Can't Reach Ulcer and Limited mobility Smoking Status: Never smoker [facility] Medical History (Updated 04/20/23 @ [...] (and venous) Thickness: Skin Breakdown Bed Appearance: Ernest Percent of Wound Bed Granulated/Red: 100 Percent of Devitalized: 0 Length (cm): 35.0 Width (cm): 40.0 Depth (cm): 0.1 CM Sq: 1400.000 Surrounding Tissue Appearance: Peeling and Dryness Surrounding Tissue Temp: Warm Drainage Amount: None Drainage Description: Serosanguineous Drainage Odor: No Odor Left Lower Leg: Type: Lymphedema (and venous) Thickness: Skin Breakdown Bed Appearance: Ernest Percent of Wound Bed Granulated/Red: 100 Percent [...] By: <Electronically signed by WALTER Poole> 04/20/23911 [facility] Work Phone: 1(274) 528-187306-29-2023 Progress note Author Hien Poole [facility] April 09, 2023 10:05am Note Date/Time April 09, 2023 10:0 5am [facility] [address] [place] [address] Wound Center Provider Note Signed Patient: Magy Castro MR#: [id number] : 1955 Acct:[id number] Age/Sex: 67 / F Copies to: Sherman Larson,DO Hien Poole APRN~ HPI Date of Visit Date of Visit: Date of Service: 04/09/2023 Time of Service: 10:00 Narrative HPI: 03/25/23 Debbie is a 67 year old female presenting to [facility] wound care for an initial visit for [...] interested in seeing the vascular group in [place] but she wants to wait at this [...] wound start?: July 2022 Mode of Arrival/ Java Sybase Developer: Personal vehicle Lives with:: Spouse Appetite Description: Within Normal Limits Who helps w/ dressing change?: Wound Care Dept Why Do You Need Help?: Can't Reach Ulcer and Limited mobility Smoking Status: Never smoker [facility] Medical History (Updated 04/09/23 @ [...] (and venous) Thickness: Skin Breakdown Bed Appearance: Ernest Percent of Wound Bed Granulated/Red: 100 Percent of Devitalized: 0 Length (cm): 35.0 Width (cm): 40.0 Depth (cm): 0.1 CM Sq: 1400.000 Surrounding Tissue Appearance: Dryness Surrounding Tissue Temp: Warm Drainage Amount: Small Drainage Description: Serosanguineous Drainage Odor: No Odor Left Lower Leg: Type: Lymphedema (and venous) Thickness: Skin Breakdown Bed Appearance: Beefy Red, Ernest and Yellow Percent of Wound Bed Granulated/Red: [...] <Electronically signed by WALTER Poole> 04/09/23 1005 [facility] Work Phone: 1(229) 911-290906-22-2023 Progress note Author Hien Poole [facility] April 02, 2023 9:18am Note Date/Time April 02, 2023 9:19 am [facility] [address] [place] [address] Wound Center Provider Note Signed Patient: Magy Castro MR#: [id number] : 1955 Acct:[id number] Age/Sex: 67 / F Copies to: Sherman Larson,DO Hien Poole APRN~ HPI Date of Visit Date of Visit: Date of Service: 04/02/2023 Time of Service: 09:16 Narrative HPI: 03/25/23 Debbie is a 67 year old female presenting to [facility] wound care for an initial visit for [...] interested in seeing the vascular group in [place] but she wants to wait at this [...] wound start?: July 2022 Mode of Arrival/ Java Sybase Developer: Personal vehicle Lives with:: Spouse Appetite Description: Within Normal Limits Who helps w/ dressing change?: Wound Care Dept Why Do You Need Help?: Can't Reach Ulcer and Limited mobility Smoking Status: Never smoker [facility] Medical History (Updated 04/02/23 @ [...] Appearance: Beefy Red, Epithelial Tissue or Bridge, Ernest and Yellow Percent of Wound Bed Granulated/Red: 90 Percent of Devitalized: 10 Length (cm): 35.0 Width (cm): 40.0 Depth (cm): 0.1 CM Sq: 1400.000 Surrounding Tissue Appearance: Hyperpigmented Surrounding Tissue Temp: Warm Drainage Amount: Moderate Drainage Description: Serosanguineous Drainage Odor: No Odor Left Lower Leg: Type: Lymphedema (and venous) Thickness: Skin Breakdown Bed Appearance: Beefy Red, Epithelial Tissue or Bridge, Ernest and Yellow Percent of Wound Bed Granulated/Red: [...] By: <Electronically signed by WALTER Poole> 04/02/23917 [facility] Work Phone: 1(659) 283-455606-14-2023 Progress note Author Hien Poole [facility] March 25, 2023 3:02pm Note Date/Time March 25, 2023 2:58 pm [facility] [address] [place] [address] Wound Center Provider Note Signed Patient: Magy Castro MR#: [id number] : 1955 Acct:[id number] Age/Sex: 67 / F Copies to: Sherman Larson,DO Hien Poole APRN~ HPI Date of Visit Date of Visit: Date of Service: 03/25/2023 Time of Service: 14:52 Narrative HPI: 03/25/23 Debbie is a 67 year old female presenting to [facility] wound care for an initial visit for [...] interested in seeing the vascular group in [place] but she wants to wait at this [...] wound start?: July 2022 Mode of Arrival/ Java Sybase Developer: Personal vehicle Lives with:: Spouse Appetite Description: Within Normal Limits Who helps w/ dressing change?: Wound Care Dept Why Do You Need Help?: Can't Reach Ulcer and Limited mobility Smoking Status: Never smoker [facility] Medical History (Updated 03/25/23 @ [...] Appearance: Beefy Red, Epithelial Tissue or Bridge, Ernest and Yellow Percent of Wound Bed Granulated/Red: 90 Percent of Devitalized: 10 Length (cm): 35.0 Width (cm): 40.0 Depth (cm): 0.1 CM Sq: 1400.000 Surrounding Tissue Appearance: Hyperpigmented Surrounding Tissue Temp: Warm Drainage Amount: Moderate Drainage Description: Serosanguineous Drainage Odor: No Odor Left Lower Leg: Type: Lymphedema (and venous) Thickness: Skin Breakdown Bed Appearance: Beefy Red, Epithelial Tissue or Bridge, Ernest and Yellow Percent of Wound Bed Granulated/Red: [...] <Electronically signed by WALTER Poole> 03/25/23 1502 [facility] Work Phone: [phone]) 123-462205-11-2023 Nurse Note* Lakhwinder Payan RN - 02/19/2023 [...] None REFERRAL (RECOMMENDATION): None documented in [facility] History and physical note * Lior [...] 2:04 PM Source Note - Christophe Shaffer, WALTER.ASSEMBLER CLIP ON SUNGLASSES - 02/02/2023 8:00 AM EDT Images from the original note were not included. PREANESTHESIA CONSULT CLINIC TELEHEALTH VISIT Patient has been identified by name and date of : Yes This is a virtual visit using [facility] Lab video visit. It require patient-provider interaction for [...] fevers. Neuro: No history of TIA's, stroke, MACHINERY MECHANIC tumor, impaired sensorium, hemiplegia, paraplegia or quadraplegia. No neurological symptoms or problems. Respiratory: No history of current cough or dyspnea, or pneumonia in the past 6 weeks. No history of respiratory/pulmonary symptoms or problems. Cardiovascular: Positive for: DVT/PE, HLD, Negative for Recent ND, Angina, Arrhythmia, CAD, Chest Pain, CHF, HTN, PVD, Valvular Heart Disease GI: SEE HPI Negative for GERD, Nausea, Vomiting, Abdominal pain, Hepatitis, Liver disease, Pancreatitis, Colon cancer, Rectal cancer : No history of dysuria, frequency or incontinence,, stones or chronic kidney disease INSURANCE BILLING CLERK: Negative for abnormal vaginal bleeding, abnormal [...] device. I spent more than 21-40 minutes [id number] with the patient and over half the time was devoted tocounseling and/or coordination of care. This is a virtual visit. It required patient-provider interaction for the medical decision making as documented above. SIGNATURE: Christophe Shaffer APRN.VINCE PATIENT NAME: Magy Castro DATE: February 02, 2023 TIME: 8:45 AM PAGER/CONTACT #: documented in this encounterSouth[facility]23 Evaluation note* Encounter Date Diagnosis Assessment Notes Treatment Notes Treatment Clinical Notes February, Type 2 diabetes mellitus (ICD-10 - E11.9) Managing type 2 diabetes material was published 1. Uncontrolled, Type 2 diabetes A1C 7.3% 2. Blood glucose levels improved. According to [employer] 2 cgm download 01/28/2023-02/10/2023 Avg glucose 160. [...] hyperglycemia, or diabetes medication issues. 6. Prescriptions: OROS MAIL ORDER/CARLOS PIZANO: None at this time. [...] High blood pressure material was published February, terminal press operator current use of insulin (ICD-10 - Z79.4) February, B12 deficiency (ICD-10 - E53.8) Good food sources of vitamin B12 material was published 03/2022 Vit b12 >1400 February, BMI 45.0-49.9, adult (ICD-10 - Z68.42) Setting weight-loss goals material was published [facility] Other [id number] Miscellaneous Notes* Telephone Encounter - Orville Zamarripa LPN - 02/04/2023 11:44 AM EDTSummary: External Lab Results Scanned into patients chart documented in this encounterSouth[facility]04-[facility]-2023 Miscellaneous Notes* Telephone Encounter - Heidi Parson RN - 02/03/2023 1:19 PM EDT Attempted to call pt, no answer. Left detailed voice msg regarding msg below. Instructed to call back with any questions. Heidi Parson RN * Telephone Encounter - Lior Linton MD - 02/03/2023 7:22 AM EDT MRCP images were reviewed. The images were downloaded to [facility] and the MRI was done at [facility]. Agree with the findings of the [...] pt. She will obtain MRCP disc from [facility] and send to our office. Heidi Parson RN ----- Message ----- From: Lior Linton MD Sent: 01/12/2023 5:41 PM EDT To: MARCEL Love: Please let me know when the MRCP disc is loaded into [facility] for my review. documented in this encounterSouthview Medical Center04-24-2023 Instructions* Patient Instructions* Christophe Shaffer APRN.ASSEMBLER CLIP ON SUNGLASSES - 02/02/2023 8:36 AM EDT PATIENT PREOPERATIVE INSTRUCTIONS Lior Linton MD has scheduled you for your procedure at this surgery center: [facility]: [phone] --[id number] [address]. Please check in on the1st floor at [...] Procedures: - YOU MUST HAVE A RESPONSIBLE MAINTENANCE MECHANIC TELEPHONE TAKE YOU HOME. A SYSTEM OPERATION SUPERINTENDENT OR CIRCULAR RIPSAW OPERATOR CANNOT BE MADE A RESPONSIBLE MAINTENANCE MECHANIC TELEPHONE. - We recommend that a responsible person [...] Advance Directive, please fax a copy to [phone] or email to for it to be [...] day. Christophe Shaffer APRN.CNP documented in this encounterSouthview [facility] Center04-24-2023 History and physical note * Christophe Shaffer APRN.CNP - 02/02/2023 8:00 AM EDT Images from the original note were not included. PREANESTHESIA CONSULT CLINIC TELEHEALTH VISIT Patient has been identified by name and date of : Yes This is a virtual visit using 13th Lab video visit. It require patient-provider interaction for [...] fevers. Neuro: No history of TIA's, stroke, MACHINERY MECHANIC tumor, impaired sensorium, hemiplegia, paraplegia or quadraplegia. No neurological symptoms or problems. Respiratory: No history of current cough or dyspnea, or pneumonia in the past 6 weeks. No history of respiratory/pulmonary symptoms or problems. Cardiovascular: Positive for: DVT/PE, HLD, Negative for Recent ND, Angina, Arrhythmia, CAD, Chest Pain, CHF, HTN, PVD, Valvular Heart Disease GI: SEE HPI Negative for GERD, Nausea, Vomiting, Abdominal pain, Hepatitis, Liver disease, Pancreatitis, Colon cancer, Rectal cancer : No history of dysuria, frequency or incontinence,, stones or chronic kidney disease INSURANCE BILLING CLERK: Negative for abnormal vaginal bleeding, abnormal [...] device. I spent more than 21-40 minutes [id number] with the patient and over half the time was devoted tocounseling and/or coordination of care. This is a virtual visit. It required patient-provider interaction for the medical decision making as documented above. SIGNATURE: Christophe Shaffer APRN.CNP PATIENT NAME: Magy Castro DATE: February 02, 2023 TIME: 8:45 AM PAGER/CONTACT #: documented in this encounterSouth[facility] Center03-29-2023 History and physical note * Lior [...] alcohol. 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 Her brother age 51 from pancreatic [...] (primary diagnosis) The MRCP was done at [facility]. I will review the images after they are downloaded to [facility] We will schedule the patient for EUS with possible FNA especially with the strong family history ofpancreatic cancer. - EGD - THERAPEUTIC, EUS, OR TUBE INTERVENTIONS 2. Family history of pancreatic cancer - ICD9: V16.0, ICD10: Z80.0 Brother at age 51 from dynamometer mechanic cancer. He was not smoker or alcoholic. 3. History of endometrial cancer - ICD9: V10.42, ICD10: Z85.42 History of endometrial cancer stage II diagnosed 2016 and treated with surgery followed by chemo and radiation. Lior Linton MD, FACP documented in this encounterSouth[facility] Center01-24-2023 Evaluation note* Encounter Date Diagnosis Assessment [...] High blood pressure material was published Oct, care home current use of insulin (ICD-10 - Z79.4) Oct, B12 deficiency (ICD-10 - E53.8) Good food sources of vitamin B12 material was published 03/2022 Vit b12 >1400 Oct, BMI 45.0-49.9, adult (ICD-10 - Z68.42) Setting weight-loss goals material was published 2 pound weight loss from last visit, continue with weight loss efforts [facility] Other 01-19-2023 Miscellaneous Notes* Telephone Encounter - Romain Bautista Pss - 10/30/2022 11:33 AM EST Spoke with patient and she is scheduled @ 9:[address] Linton for O/V. Luigi Batres * Telephone Encounter - Heidi Parson RN - 10/30/2022 11:18 AM EST Medardo is supposed to call pt today to schedule in biliary pancreas clinic on 11/19/2022. Heidi Parosn RN * Telephone Encounter - Blanca Norton - 10/30/2022 11:09 AM EST Pt saw Dr. Rowland, at [facility] and was given Dr. Linton's name to schedule a ERCP?Dr. Rowland does not do ERCPs Pt stated that Dr. Rowland has sent over pt's medical records?! Pt can be reached at Thanks documented in this encounterSouthview Medical Center12-14-2022 Evaluation note* Encounter Date Diagnosis Assessment [...] a (ICD-10 - C54.1) Pt reports the EMBEDDED FIRMWARE DEVELOPER at the cancer center ordered a CT [...] blood work was ordered to monitor this. [facility] Other 12-07-2022 History of Present illness Narrative* Юлия Odom APRN.[facility] - 09/17/2022 9:40 AM EST DATE: 09/17/2022 [...] present, cervix not involved HNPCC screening negative ER/IA: negative 2. Chemotherapy with Carboplatin and taxol [...] cancer, +LVI, MMR nl Limited staging 12/2015 ([facility]) HDRB c 04/2016 Chemo x 5 [...] health maintenance up to date-mammogram completed at [facility] - continue follow up with PCP - RTC in 12 months, sooner prn for issues/concerns. Юлия Odom APRN.CNP Medical Decision Making: Problems: Low: Stable chronic illness Data: Unique test result(s) reviewed: 1 Risk: Low: Low risk from testing/treatment Medical Decision Making Level: 3 - Low documented in this encounterSouthview Medical Center12-01-2022 NoteHNO ID: [id number] Author: RT Eugenia(R) Service: ? Author Type: [...] RT Eugenia(R) September 11, 2022 10:00 [facility]12-01-2022 NoteHNO ID: [id number] Author: Lavinia Godfrey RN Service: ? Author [...] Final Comment: Account Credited DUPLICATE ORDER MW [id number] 09/13/2021 0.70 0.58 - 0.96 mg/dL [...] Final Comment: Account Credited DUPLICATE ORDER MW [id number] P.O.C.T. RESULTS: POC done: Yes, See Lab Tab September 11, 2022 TREATMENT: No Hydration needed. IV SITE: Ambulatory: A peripheral IV was started in the Left antecubital site with a Angio cath: 20 gauge. IV SITE APPEARANCE: Clean,Dry and Intact SIGNATURE: Lavinia Godfrey RN PATIENT NAME: Magy Castro DATE: September 11, 2022 TIME: 9:59 [facility]11-02-2022 Miscellaneous Notes* Telephone Encounter - Lavinia Godfrey RN - 08/13/2022 10:56 AM EDT Please sign pending Cre order for Magy Castro for upcoming CT with contrast on 09/11/22. Thank you. Lavinia Godfrey RN documented in this encounterSouthview Medical Center10-10-2022 Evaluation note* Encounter Date Diagnosis Assessment Notes Treatment Notes Treatment Clinical Notes Jul, Type 2 diabetes mellitus (ICD-10 - E11.9) Managing type 2 diabetes material was published 1. Uncontrolled, Type 2 diabetes A1C 8.2% 2. Blood glucose levels above target. According to [employer] 2 cgm download 07/08/2022-07/21/20 Avg glucose 201. [...] High blood pressure material was published Jul, care home current use of insulin (ICD-10 - Z79.4) Jul, B12 deficiency (ICD-10 - E53.8) Good food sources of vitamin B12 material was published 03/2022 Vit b12 >1400 Jul, BMI 45.0-49.9, adult (ICD-10 - Z68.42) Setting weight-loss goals material was published [facility] Other 06-29-2022 Evaluation note* Encounter Date Diagnosis Assessment Notes Treatment Notes Treatment Clinical Notes Mar, Type 2 diabetes mellitus (ICD-10 - E11.9) Managing type 2 diabetes material was published 1. Uncontrolled, Type 2 diabetes A1C 7.1% 2. Blood glucose levels above target. According to [employer] 2 cgm download 03/27/2022- 2 Avg glucose [...] High blood pressure material was published Mar, care home current use of insulin (ICD-10 - Z79.4) Mar, B12 deficiency (ICD-10 - E53.8) Good food sources of vitamin B12 material was published 03/2022 Vit b12 >1400 Mar, BMI 45.0-49.9, adult (ICD-10 - Z68.42) Making healthy choices at restaurants material was published [facility] Other 06-14-2022 Evaluation note* Encounter Date Diagnosis Assessment Notes Treatment Notes Treatment Clinical Notes Mar, Sinus congestion (ICD-10 - R09.81) [facility] Other 04-20-2022 Evaluation note* Encounter Date Diagnosis Assessment Notes Treatment Notes Treatment Clinical Notes Jan, Type 2 diabetes mellitus (ICD-10 - E11.9) [facility] Other 03-09-2022 Evaluation note* Encounter Date Diagnosis Assessment Notes Treatment Notes Treatment Clinical Notes Dec, Type 2 diabetes mellitus (ICD-10 - E11.9) Managing type 2 diabetes material was published 1. Controlled, Type 2 diabetes A1C 7% 2. Blood glucose levels improved. According to [employer] 2 cgm download 12/05/2021-12/18/2021 Avg glucose 157. [...] pattern. Reviewed with pt option of downloading [employer] kiera to help with carb counting. Pt [...] u100 x1 pen given. Sent fiasp to [facility]. 7. Reviewed with pt if right great [...] High blood pressure material was published Dec, care home current use of insulin (ICD-10 - Z79.4) Dec, B12 deficiency (ICD-10 - E53.8) Good food sources of vitamin B12 material was published 04/2021 Vit b12 211 on supplement Dec, BMI 45.0-49.9, adult (ICD-10 - Z68.42) Making healthy choices at restaurants material was published Dec, Hypoglycemia associated with type 2 diabetes mellitus (ICD-10 - E11.649) Low blood glucose and diabetes material was published [facility] Other 01-07-2022 Evaluation note* Encounter Date Diagnosis Assessment Notes Treatment Notes Treatment Clinical Notes Oct, Cough (ICD-10 - R05.9) [facility] Other 12-13-2021 Evaluation note* Encounter Date Diagnosis [...] Sep, Vitamin D deficiency (ICD-10 - E55.9) [facility] Other 11-30-2021 Evaluation note* Encounter Date Diagnosis Assessment Notes Treatment Notes Treatment Clinical Notes Aug, Type 2 diabetes mellitus (ICD-10 - E11.9) Managing type 2 diabetes material was published 1. Uncontrolled, Type 2 diabetes A1C 7.2% 2. Blood glucose levels improved, above target. According to [employer] 2 cgm download 08/28/2021- 021 Avg glucose [...] medication issues. 6. Prescriptions: Victoza sent to [facility]. Aug, Dietary counseling and surveillance (ICD-10 - Z71.3) Eat well, exercise well, be well: dietary and fitness guidelines material was published Aug, Hyperlipidemia (ICD-10 - E78.5) Managing your cholesterol material was published 04/2021 ldl 75, trig. 164 on statin. 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 operator current use of insulin (ICD-10 - Z79.4) Aug, B12 deficiency (ICD-10 - E53.8) Good food sources of vitamin B12 material was published 04/2021 Vit b12 211 on supplement Aug, BMI 45.0-49.9, adult (ICD-10 - Z68.42) Making healthy choices at restaurants material was published Aug, Hypoglycemia associated with type 2 diabetes mellitus (ICD-10 - E11.649) Low blood glucose and diabetes material was published [facility] Other Evaluation noteNo InformationNort [place] Other Evaluation noteNo assessment information available [facility] Work Phone: Evaluffbne note* Diagnosis Malignant neoplasm of body of uterus, unspecified site (HCC)- Primary documented in [facility] [place] [facility]* Diagnosis Encounter for follow-up surveillance of endometrial cancer- Primary Unspecified follow-up examination Pancreatic cyst Cyst and pseudocyst of pancreas Lung nodules Other nonspecific abnormal finding of lung field documented [facility]* Diagnosis Pancreatic cyst- Primary Cyst and pseudocyst of pancreas Family history of pancreatic cancer Family history of malignant neoplasm of gastrointestinal tract History of endometrial cancer Personal history of malignant neoplasm of other parts of uterus [facility] [place] [facility]* Diagnosis Pre-op evaluation- Primary Preoperative examination, unspecified Type 2 diabetes mellitus without complication, unspecified whether care home insulin use (HCC) Mixed hyperlipidemia Endometrial cancer (HCC) Malignant neoplasm of corpus uteri, except isthmus Morbid obesity (HCC) Morbid obesity documented in this encounter [facility] [place] [facility]* Diagnosis Pancreatic cyst Cyst and pseudocyst of pancreas documented in this [facility] [place] [facility]* Diagnosis Onset Date Resolution Status Diabetes chronic Edema chronic 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 Inflammation chronic Lymphedema of both lower extremities chronic Obesity chronic Venous stasis of both lower extremities chronic Venous stasis ulcer of left lower extremity chronic Venous stasis ulcer of right lower extremity chronic [facility] Work Phone: Evaluation note* Diagnosis Onset Date Resolution Status Diabetes chronic Edema chronic 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 Inflammation chronic Lymphedema of both lower extremities chronic Obesity chronic Venous stasis of both lower extremities chronic Candidiasis resolved Cellulitis resolved Venous stasis ulcer of left lower extremity resolved Venous stasis ulcer of right lower extremity resolved [facility] Work Phone: Evaluation note* Diagnosis Onset [...] stasis ulcer of right lower extremity resolved [facility] Work Phone: Evaluation note* Diagnosis Onset Date Resolution Status Diabetes chronic Edema chronic 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 Inflammation chronic Lymphedema of both lower extremities chronic Obesity chronic Venous stasis of both lower extremities chronic Candidiasis resolved Venous stasis ulcer of right lower extremity resolved [facility] Work Phone: history general Narrative - [...] See Above Hospitalization History Covid 19 10/16/20- [facility] Other history general Narrative - Reported* Type [...] See Above Hospitalization History Covid 19 10/16/20- [facility] Other history general Narrative - Reported* Type [...] See Above Hospitalization History Covid 19 10/16/20- [facility] Other History general [facility] Other Progress note Author Hien Poole [facility] April 30, 2023 9:07am Note Date/Time April 30, 2023 9:07 am [facility] [address] [place] [address] Wound Center Provider Note Signed Patient: Magy Castro MR#: [id number] : 1955 Acct:[id number] Age/Sex: 67 / F Copies to: Sherman Larson,DO Hien Poole APRN~ HPI Date of Visit Date of Visit: Date of Service: 04/30/2023 Time of Service: 09:05 Narrative HPI: 03/25/23 Debbie is a 67 year old female presenting to [facility] wound care for an initial visit for [...] interested in seeing the vascular group in [place] but she wants to wait at this [...] wound start?: July 2022 Mode of Arrival/ Java Sybase 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: Personal vehicle Lives with:: Spouse Appetite Description: Within Normal Limits Who helps w/ dressing change?: Wound Care Dept Why Do You Need Help?: Can't Reach Ulcer and Limited mobility Smoking Status: Never smoker [facility] Medical History (Updated 04/30/23 @ [...] <Electronically signed by WALTER Poole> 04/30/23 0907 [facility] Work Phone: [facility] for referral (narrative)* Outpatient Procedure (Routine) - Authorized Specialty Diagnoses / Procedures Referred By Contac t Referred To Contact [facility] Diagnoses Pancreatic cyst Procedures EGD - THERAPEUTIC, EUS, OR TUBE INTERVENTIONS EGD INTRMURAL US NEEDLE ASPIRATE/[place] [address] [place] [address] [address] Referral ID Status Reason Start Date Expiration Date Visits Requested Visits Authorized [id number] Authorized Auto-Generat ed Referral 01/07/2023 01/08/2024 1 1 [facility] for referral (narrative)* Outpatient Procedure (Routine) - Closed Specialty Diagnoses / Procedures Referred By Contac t Referred To Contact [facility] Diagnoses Pancreatic cyst Procedures EGD - THERAPEUTIC, EUS, OR TUBE INTERVENTIONS EGD INTRMURAL US NEEDLE ASPIRATE/[place] [address] [place] [address] [address] [address] [place] [address] Referral ID Status Reason Start Date Expiration Date V isits Requested Visits Authorized [id number] Closed Auto-Generate d Referral 01/07/2023 01/08/2024 1 1 [facility] for visit Narrative* Outpatient Procedure (Routine) - Closed Specialty Diagnoses / Procedures Referred By Contac t Referred To Contact [facility] Diagnoses Pancreatic cyst Procedures EGD - THERAPEUTIC, EUS, OR TUBE INTERVENTIONS EGD INTRMURAL US NEEDLE ASPIRATE/[place] [address] [place] [address] [address] Referral ID Status Reason Start Date Expiration Date V isits Requested Visits Authorized [id number] Closed Auto-Generate d Referral 01/07/2023 01/08/2024 1 1 [facility] Chief Complaint and Reason for Visit [...] 1 Skin abnormalities ( L98.9) Referral Organization [facility] Referring Provider First Name Rosanne Referring Provider Last Name Tim Referring Provider Specialty Nurse Pract itioner Referred Organization [facility] Referred Provider Chi Cordero Referred Address ,[place], [place],[address] Referred Provider Specialty Dermatology Referral Priority Routine Specialty Diagnoses / Procedures Referred By Viky t Referred To Contact Gastroenterology Diagnoses Pancreatic cyst Procedures CONSULT TO GASTROENTEROLOGY OFFICE/OUTPATIENT NEW HIGH [facility] 60-74 MINUTES Юлия Odom APRN.ASSEMBLER [employer] [address] [place] [address] Referral ID Status Reason Start Date Expiration Date Visits Requested Visits Authorized [id number] Authorized PCP Requested Referral 09/17/2022 09/17/2023 1 [...] Primary Care Provider, Attending Provi regan Active Loft Worker Relationship Specialty Start Date End Date Sherman Larson [address] [address] PCP - General Family Medicine 01/15/16 Loft Worker Relationship Specialty Start Date End Date Sherman Larson [address] [address] PCP - General Family Medicine 01/15/16 Loft Worker Relationship Specialty Start Date End Date Sherman Larson, [address] [address] PCP - General Family Medicine 01/15/16 Loft Worker Relationship Specialty Start Date End Date Sherman Larson, [address] [address] PCP - General Family Medicine 01/15/16 Loft Worker Relationship Specialty Start Date End Date Sherman Larson, [address] [phone] PCP - General Family Medicine 01/15/16 Loft Worker Relationship Specialty Start Date End Date Sherman Larson, [address] [address] PCP - General Family Medicine 01/15/16 Loft Worker Relationship Specialty Start Date End Date Sherman Larson, [address] [address] PCP - General Family Medicine 01/15/16 Goals [...] or prosecute any alcohol or drug abuse patient.[facility] the event this information is protected by the Federal Confidentiality of Alcohol and Drug Abuse Patient Records regulations: The Federal rules restrict any use of the information to criminally investigate or prosecute any alcohol or drug abuse patient.[facility] the event this information is protected by the Federal Confidentiality of Alcohol and Drug Abuse Patient Records regulations: The Federal rules restrict any use of the information to criminally investigate or prosecute any alcohol or drug abuse patient.[facility] the event this information is protected by the Federal Confidentiality of Alcohol and Drug Abuse Patient Records regulations: The Federal rules restrict any use of the information to criminally investigate or prosecute any alcohol or drug abuse patient.[facility] the event this information is protected by the Federal Confidentiality of Alcohol and Drug Abuse Patient Records regulations: The Federal rules restrict any use of the information to criminally investigate or prosecute any alcohol or drug abuse patient.[facility] the event this information is protected by the Federal Confidentiality of Alcohol and Drug Abuse Patient Records regulations: The Federal rules restrict any use of the information to criminally investigate or prosecute any alcohol or drug abuse patient.[facility] the event this information is protected by the Federal Confidentiality of Alcohol and Drug Abuse Patient Records regulations: The Federal rules restrict any use of the information to criminally investigate or prosecute any alcohol or drug abuse patient.[facility] the event this information is protected by the Federal Confidentiality of Alcohol and Drug Abuse Patient Records regulations: The Federal rules restrict any use of the information to criminally investigate or prosecute any alcohol or drug abuse patient.[facility] the event this information is protected by the Federal Confidentiality of Alcohol and Drug Abuse Patient Records regulations: The Federal rules restrict any use of the information to criminally investigate or prosecute any alcohol or drug abuse patient.[facility] INFORMATION SOURCE (unrecogn ized section and content) DATE CREATED AUTHOR 02/05/2023 [facility] DATE CREATED AUTHOR AUTHOR'S ORGANIZ ATION 09/24/2023 [facility] DATE CREATED AUTHOR AUTHOR'S ORGANIZ ATION 11/08/2023 [facility] FOR RECORDS PERTAINING TO PATIENTS WHO [...] BE BASED ON THE PRIMARY CLINICAL RECORDS. [employer] [facility]. provides no warranty or guarantee of the accuracy or completeness of information in this document.
== END 2023-11-24 07:56 | disposition home or self-care (01) ==
LOC: VC 07:56
PROVIDERS: PCP Radiology Diagnostic Radiology; Visit Provider Radiology Diagnostic Radiology
DX: I83.813 Varicose veins of bilateral lower extremities with pain (principal)
CPT/HCPCS: 36466

== ENCOUNTER 2023-12-01 10:27 | Outpatient (OUT) | payer MEDICARE, OTHER, SELFPAY ==
--- NOTE | 2023-12-01 10:29 | VEIN_ITS ---
Patient Name: OXANA CASTRO MR#: [id number] : 1955 Exam Date: 12/01/2023 Ordering Doctor: DR COLTON HAMLIN M.D. RADIOLOGY REPORT PROCEDURE: [facility] - OFFICE VISIT FOLLOW UP [facility] PROGRESS NOTES: The patient reports improvement in leg symptoms. There has been interval reduction in varicosities. The patient has followed our recommendations to walk 20-30 minutes once or twice per day since the procedure. Physical exam demonstrates decrease in varicosities of the leg. Bilateral or lower extremity swelling in chronic skin changes, but improving. Review of the ultrasound performed the same day demonstrates occlusive thrombus extending throughout the treated vein(s), see separate report, consistent with a successful ablation. No thrombus extending into or beyond the saphenofemoral junction. Some additional dilated varicosities are still present bilaterally. The patient expressed a desire to proceed with treatment of remaining incompetent varicosities. The patient was informed that the number of microfoam chemical ablation treatments provided by patient's insurance company have been exhausted. VEIN/[facility] EST LMTD IMPRESSION: 1. Successful ablation of the left leg treated branch saphenous varicosities saphenous vein(s). 2. Some remaining varicose veins bilaterally seen by ultrasound. Persistent lower extremity swelling and chronic skin changes, but improving. PLAN: No additional treatment is planned at this time. The number of treatments allowed by patient's insurance company have been completed. Patient will follow-up in future as needed. Nurse notes, history and physical were reviewed and confirmed, see attached forms. The nurse was present throughout the physical exam and consultation Dictated by: Alan Hernández M.D. on 12/01/2023 at 12:15 Approved by: Alan Hernández M.D. on 12/01/2023 at 12:19
--- NOTE | 2023-12-01 10:30 | VEIN_ITS ---
Patient Name: OXANA CASTRO MR#: [id number] : 1955 Exam Date: 12/01/2023 Ordering Doctor: DR COLTON HAMLIN M.D. RADIOLOGY REPORT PROCEDURE: VC EXT VENOUS LT LIMITED COMPARISON: VC EXT VENOUS LT LIMITED, 11/20/2023. INDICATIONS: I80.02 Phlebitis of superficial veins of lt lower extremity TECHNIQUE: Lower extremity samson scale and Duplex Doppler evaluation of the deep venous system from the inguinal ligament through the calf veins. FINDINGS: REGION: Left lower extremity. THROMBI: Negative for DVT. Varithena induced thrombus visualized at dist/ant calf, prox/ant calf, and dist/lat calf. COMPRESSIBILITY: Non-compressible segments corresponding to thrombus FLOW: Normal waveform and antegrade flow between 5 and 20 cm/s.Areas of no flow corresponding to thrombus OTHER: Multiple varicose veins remain bilaterally. CONCLUSION: 1. Successful post ablation occlusion of treated left leg branch saphenous varicosities. Dictated by: Alan Hernández M.D. on 12/01/2023 at 12:13 Approved by: Alan Hernández M.D. on 12/01/2023 at 12:15
== END 2023-12-01 10:28 | disposition home or self-care (01) ==
LOC: VC 10:27
PROVIDERS: PCP Radiology Diagnostic Radiology; Visit Provider Radiology Diagnostic Radiology
DX: I80.02 Phlebitis and thrombophlebitis of superficial vessels of left lower extremity (principal)
CPT/HCPCS: 93971; G0463

== ENCOUNTER 2024-06-06 09:02 | Outpatient (OUT) | payer MEDICARE, OTHER, SELFPAY ==
--- NOTE | 2024-06-06 08:21 | V.VEINS.HP ---
Vital Signs 06/06/24 09:05 Height 5 ft 4 in Weight 117.934 kg BMI 44.6 BP 140/70 BP Location Left Brachial BP Position Sitting BP Cuff Size Large Adult BP Source Automatic Cuff Respiration 16 Pulse 81 Pulse Oximetry (%) 96 Oxygen Delivery Method Room Air Comment The patient's blood pressure is elevated. Varicose Veins Patient in this day for continued pain and swelling of bilateral lower extremities and recurring ulcer of lateral lower left leg. Michele Dias MD personally performed the services described in this documentation, as scribed by Yulisa Weinstein RDMS in my presence and it is both accurate and complete. Yulisa Dias RDMS, am scribing for, and in the presence of, Dr. Michele Mccall and in the presence of the patient. thigh: bilateral, knee: bilateral, calf: bilateral and ruiz: bilateral aching, dull and other (heavy, itching) 5 5 yrs Worsened in recent months: Yes standing analgesics (Ibuprofen), bed rest, elevating extremities and compression stockings Reports limb pain, leg edema and other (bilateral leg ulcers) History of lower extremity trauma: No Superficial thrombophlebitis: No Family history of varicose veins: yes Has patient had previous lower extremity venous surgery: Yes Patient has previously received the following treatment(s) for lower extremity varicose veins: Reports vein ablation, phlebectomy and foam therapy Does patient have a history of : yes () Does patient intend to have future pregnancies: no Has patient had lower extremity venous scan with relux testing: Yes Support hose used: Yes Problems walking or doing physical activity: Yes How does it affect you: limited exercise limited due to pain Do you walk much: No Do you stand much: Yes Medication compliance: good Large amounts of Vitamin K: No Review of Systems ROS Narrative Michele Dias MD personally performed the services described in this documentation, as scribed by Yulisa Weinstein RDMS in my presence and it is both accurate and complete. Yulisa Dias RDMS, am scribing for, and in the presence of, Dr. Michele Mccall and in the presence of the patient. Status of ROS 10 or more systems reviewed and unremarkable except as noted in history and below Cardiovascular Reports: edema, swelling of feet/ankles and leg pain with exertion Musculoskeletal Reports: extremity pain, extremity swelling, joint pain, joint swelling and muscle weakness Integumentary/Breast Reports: itching, redness, skin tenderness, skin swelling, non-healing lesion (lower left leg) and changes in skin color Neurological Reports: weakness in extremities [facility] Medical History (Updated 06/06/24 @ 09:12 by Yulisa Weinstein) Phlebitis and thrombophlebitis of superficial vessels of lower extremities, bilateral ?I80.03 - Phlebitis and thrombophlebitis of superficial vessels of lower extremities, bilateral (ICD-10) Phlebitis and thrombophlebitis of superficial vessels of left lower extremity ?I80.02 - Phlebitis and thrombophlebitis of superficial vessels of left lower extremity (ICD-10) Phlebitis and thrombophlebitis of superficial vessels of right lower extremity ?I80.01 - Phlebitis and thrombophlebitis of superficial vessels of right lower extremity (ICD-10) Varicose veins of bilateral lower extremities with pain ?I83.813 - Varicose veins of bilateral lower extremities with pain (ICD-10) Endometrial cancer ?C54.1 - Malignant neoplasm of endometrium (ICD-10) Obesity ?E66.9 - Obesity, unspecified (ICD-10) Diabetes mellitus type 2 with complications ?E11.8 - Type 2 diabetes mellitus with unspecified complications (ICD-10) Surgical History (Updated 06/06/24 @ 08:51 by Yulisa Weinstein) Status post ablation of incompetent vein using laser ?Z98.890 - Other specified postprocedural states (ICD-10) History of hysterectomy ?Z90.710 - Acquired absence of both cervix and uterus (ICD-10) History of appendectomy ?Z90.49 - Acquired absence of other specified parts of digestive tract (ICD-10) History of cholecystectomy ?Z90.49 - Acquired absence of other specified parts of digestive tract (ICD-10) Family History (Updated 06/06/24 @ 08:52 by Yulisa Weinstein) Father Varicose veins of both lower extremities with pain Brother Family history of cancer Social History (Updated 06/06/24 @ 08:55 by Yulisa Weinstein) Within the past year, how often did you have a drink containing alcohol: 2-4 times a month Within the past year, how often did you have six or more drinks on one occasion: never Smoking status: Never smoker Non-prescribed substance use: denies use Meds Home Medications and Allergies Home Medications ?Medication ?Instructions ?Recorded ?Confirmed ?Type aspirin .Route 06/06/24 History empagliflozin 25 mg tablet 25 mg PO DAILY 06/06/24 06/06/24 History (Jardiance) ibuprofen 200 mg capsule 200 mg PO TID-QID PRN pain 06/06/24 06/06/24 History insulin aspart (niacinamide) subcut 06/06/24 History insulin glargine subcut 06/06/24 History liraglutide 0.6 mg/0.1 mL (18 mg/3 See Rx Instructions subcut .COMPLEX 06/06/24 06/06/24 History mL) subcutaneous pen injector (Victoza 2-Enoc) metformin 1,000 mg tablet 1,000 mg PO DAILY 06/06/24 06/06/24 History Allergies Allergy/AdvReac Type Severity Reaction Status Date / Time No Known Drug Allergies Allergy Unverified 06/06/24 09:01 Exam Narrative Exam Narrative: Michele Dias MD personally performed the services described in this documentation, as scribed by Yulisa Weinstein RDMS in my presence and it is both accurate and complete. Yulisa Dias RDMS, am scribing for, and in the presence of, Dr. Michele Mccall and in the presence of the patient. Constitutional Common normals: oriented x3 Lymph Lymphatic: no lymphedema noted Cardio Peripheral pulses: posterior tibial pulses present and dorsalis pedis pulses present Extremity General: calf tenderness, edema and other findings (Non-healing Ulcer) Right lower extremity: lower leg Right lower leg: inspection, palpation and other Left lower extremity: lower leg Left lower leg: inspection, palpation and other Extremity image (front): 1. ulcer Neuro Common normals: oriented x3 Results Imaging Venous US: Radiologist's impression: Incompetent right SSV, left leg AASV, bilateral perforators, and multiple varicose veins bilateral. Michele Dias MD personally performed the services described in this documentation, as scribed by Yulisa Weinstein RDMS in my presence and it is both accurate and complete. Yulisa Dias RDMS, am scribing for, and in the presence of, Dr. Michele Mccall and in the presence of the patient. Assessment and Plan Assessment and Plan (1) Phlebitis and thrombophlebitis of superficial vessels of lower extremities, bilateral: (2) Varicose veins of bilateral lower extremities with pain: Plan Plan is for patient to return for EVLT of right SSV on 06/16/24. IMichele MD personally performed the services described in this documentation, as scribed by Yulisa Weinstein RDMS in my presence and it is both accurate and complete. I, Yulisa Weinstein RDMS, am scribing for, and in the presence of, Dr. Michele Mccall and in the presence of the patient.
--- NOTE | 2024-06-06 09:03 | VEIN_ITS ---
Patient Name: OXANA CASTRO MR#: [id number] : 1955 Exam Date: 06/06/2024 Ordering Doctor: DR MICHELE MCCALL M.D. RADIOLOGY REPORT PROCEDURE: [facility] EST LMTD VEIN CENTER - OFFICE VISIT FOLLOW UP COMPARISON: [facility] EST TD, 12/01/2023. [facility] EST TD, 11/20/2023. PROGRESS NOTES: The patient reports new onset of lower extremity pain swelling skin thickening erythema and left leg ulcerations which have been slow to heal. The patient reports that she continues to wear her compression wraps and exercise to the best of her ability. She is not currently being seen at a wound Center for her ulcerations. Physical exam demonstrates moderate skin thickening and subcutaneous edema below the knees. Scattered varicose reticular and spider veins noted bilaterally. Extensive hemosiderin staining. Several ulcerations identified along the left mid to lower leg the largest measuring 2 cm in diameter. Review of the ultrasound performed the same day demonstrates incompetent right small saphenous vein and left anterior accessory saphenous vein. Bilateral incompetent varicose veins. The patient expressed a desire to proceed with treatment of varicose veins with intravenous laser ablation and micro foam chemical ablation. VEIN/[facility] EST TD IMPRESSION: 1. Moderate venous insufficiency and dilatation of the right small saphenous vein and left anterior accessory saphenous vein 2. Bilateral incompetent varicose veins. PLAN: Intravenous laser ablation right small saphenous vein followed by left anterior accessory saphenous vein Micro foam chemical ablation bilateral incompetent varicose veins Nurse notes, history and physical were reviewed and confirmed, see attached forms. The nurse was present throughout the physical exam and consultation Dictated by: Michele Mccall MD on 06/06/2024 at 10:57 Approved by: Michele Mccall MD on 06/06/2024 at 11:07
--- NOTE | 2024-06-06 09:03 | VEIN_ITS ---
Patient Name: OXANA CASTRO MR#: [id number] : 1955 Exam Date: 06/06/2024 Ordering Doctor: DR COLTON MCCALL M.D. RADIOLOGY REPORT PROCEDURE: VC EXT VENOUS REFLUX KOBI LMTD COMPARISON: VC EXT VENOUS REFLUX KOBI LMTD, 05/05/2023. INDICATIONS: I80.03 Phlebitis of superficial veins of kobi lower extremities TECHNIQUE: Duplex imaging of the lower extremity to assess the deep and superficial venous system for the presence of deep or superficial venous incompetence and to document the location and severity of disease. The study includes evaluation of the great saphenous vein (GSV), anterior accessory saphenous vein (AASV) and small saphenous vein (SSV). Patient scanned in reverse Trendelenburg and standing. FINDINGS: RIGHT LOWER EXTREMITY: Saphenofemoral Junction Reflux: Yes 11.1mm 1.2 sec GSV: Diam (mm) Reflux/ Time (sec) Proximal Thigh 8.2 Yes 0.6 Mid Thigh 5.3 Yes 0.6 Distal Thigh N/A Prox Calf N/A Mid Calf N/A Saphenopopliteal Junction Reflux: 6.1mm Yes 1.1 SSV: Proximal Calf 6.5 Yes 1.1 Mid Calf 5.7 Yes 1.5 AASV: Not present Thrombi: No acute or chronic thrombus. Compressibility: Normal. Flow: Normal. Preforator: No significant perforators. Tech Note: Incompetent varicose vein mid posterior calf off SSV measures 4.3 mm with 0.8s reflux. Incompetent infrasaphenous/posterior accessory saphenous vein measures 6.6 mm with 0.8s reflux. LEFT LOWER EXTREMITY: Saphenofemoral Junction Reflux: Yes 12.9 mm 0.5 sec GSV: Diam (mm) Reflux/Time (sec) Proximal Thigh 8.6 Yes 1.5 Mid Thigh N/A Distal Thigh N/A Prox Calf N/A Mid Calf N/A Saphenopopliteal Junction Relux: mm N/A SSV: Proximal Calf N/A Mid Calf N/A AASV: Proximal Thigh 9.0 Yes 1.4 Mid Thigh 7.2 Yes 0.6 Distal Thigh Thrombi: Thrombus visualized in previously treated varicose veins and design technician. Compressibility: Non-compressible varicose veins. Partially compressible design technician. Flow: Mild deep venous reflux popliteal vein. Complaint Clerk: Prox/lat lower leg 4.6 mm, 0.5s reflux. Dist/lat lower leg near wound 4.3 mm, 2.0s reflux. Dist lateral/post lower leg near wound 4.7 mm, 0.5s reflux. Tech Note: Previously treated design technician mid medial lower leg partially compressible measures 6.4mm. Incompetent varicose vein proximal medial lower leg measures 6.6 mm with 0.5s reflux. Varicose vein distal posterior lower leg measures 5.4 mm with 2.2s reflux. Varicose vein distal medial thigh arises from SFJ and extends to proximal calf measures 6.8 mm without reflux. CONCLUSION: 1. Moderate venous insufficiency with dilatation right small saphenous vein and left anterior accessory saphenous vein 2. Bilateral incompetent perforating veins 3. Bilateral incompetent varicose veins Dictated by: Colton Mccall MD on 06/06/2024 at 10:19 Approved by: Colton Mccall MD on 06/06/2024 at 10:21
[2024-06-06 09:05] VITALS: BP 140/70; PULSE 81; O2SAT 96; BMI 44.6
--- NOTE | 2024-06-06 11:21 | P.DS_ITS ---
Discharge Plan Discharge Disposition: Home, Self-Care Outpatient Diagnostics: VC Endovenous Ablation 1VeinRT (Routine) Timeframe: 2 Weeks Facility: [facility] - Location: Vein Center Ordered By: Michele Mccall Follow Up Appointments: 06/16/24 Plan of Treatment: EVLT of right SSV EVLT Tumescent Anesthesia: 500 mL 0.9% NS with 20 mL 1% Lidocaine and 10 mL 8.4% NAHCO3 Buffered Local Anesthesia: 10 mL of 1% Lidocaine Buffered Print Language: Greenlandic Discharge Date/Time: 06/06/24 11:22
== END 2024-06-06 11:22 | disposition home or self-care (01) ==
PROVIDERS: PCP Radiology Diagnostic Radiology; Visit Provider Radiology Diagnostic Radiology
DX: I80.03 Phlebitis and thrombophlebitis of superficial vessels of lower extremities, bilateral (principal)
CPT/HCPCS: 93970; G0463

== ENCOUNTER 2024-06-16 08:02 | Outpatient (OUT) | payer MEDICARE, OTHER, SELFPAY ==
--- NOTE | 2024-06-15 14:33 | VEINCLINIC_ITS ---
Vital Signs 06/16/24 08:27 06/16/24 08:42 Height 5 ft 4 in Weight 117.934 kg BP 120/58 BP Location Left Brachial BP Position Sitting BP Cuff Size Adult BP Source Manual Cuff Respiration 18 Pulse 88 Pulse Source Monitor Pulse Oximetry (%) 96 Oxygen Delivery Method Room Air Comment The patient's blood pressure is elevated. Varicose Veins Patient in this day for EVLT of right SSV Alan Dias MD personally performed the services described in this documentation, as scribed by Julien Panda RN in my presence and it is both accurate and complete. Julien Dias RN, am scribing for, and in the presence of, Dr. Alan Hernández and in the presence of the patient. thigh: bilateral, knee: bilateral, calf: bilateral and ruiz: bilateral aching, dull and other (heavy, itching) 5 5 yrs Worsened in recent months: Yes standing analgesics (Ibuprofen), bed rest, elevating extremities and compression stockings Reports limb pain, leg edema and other (bilateral leg ulcers) History of lower extremity trauma: No Superficial thrombophlebitis: No Family history of varicose veins: yes Has patient had previous lower extremity venous surgery: Yes Patient has previously received the following treatment(s) for lower extremity varicose veins: Reports vein ablation, phlebectomy and foam therapy Does patient have a history of : yes () Does patient intend to have future pregnancies: no Has patient had lower extremity venous scan with relux testing: Yes Support hose used: Yes Problems walking or doing physical activity: Yes How does it affect you: limited exercise limited due to pain Do you walk much: No Do you stand much: Yes Medication compliance: good Large amounts of Vitamin K: No Review of Systems ROS Narrative Alan Dias MD personally performed the services described in this documentation, as scribed by Julien Panda RN in my presence and it is both accurate and complete. Julien Dias RN, am scribing for, and in the presence of, Dr. Alan Hernández and in the presence of the patient. Status of ROS 10 or more systems reviewed and unremark able except as noted in history and below Cardiovascular Reports: edema, swelling of feet/ankles and leg pain with exertion Musculoskeletal Reports: extremity pain, extremity swelling, joint pain, joint swelling and muscle weakness Integumentary/Breast Reports: itching, redness, skin tenderness, skin swelling, non-healing lesion (lower left leg) and changes in skin color Neurological Reports: weakness in extremities PFSH [facility] Medical History (Updated 06/06/24 @ 09:12 by Yulisa Weinstein) Phlebitis and thrombophlebitis of superficial vessels of lower extremities, bilateral ?I80.03 - Phlebitis and thrombophlebitis of superficial vessels of lower extremities, bilateral (ICD-10) Phlebitis and thrombophlebitis of superficial vessels of left lower extremity ?I80.02 - Phlebitis and thrombophlebitis of superficial vessels of left lower extremity (ICD-10) Phlebitis and thrombophlebitis of superficial vessels of right lower extremity ?I80.01 - Phlebitis and thrombophlebitis of superficial vessels of right lower extremity (ICD-10) Varicose veins of bilateral lower extremities with pain ?I83.813 - Varicose veins of bilateral lower extremities with pain (ICD-10) Endometrial cancer ?C54.1 - Malignant neoplasm of endometrium (ICD-10) Obesity ?E66.9 - Obesity, unspecified (ICD-10) Diabetes mellitus type 2 with complications ?E11.8 - Type 2 diabetes mellitus with unspecified complications (ICD-10) Surgical History (Updated 06/16/24 @ 08:32 by Julien Panda) Status post ablation of incompetent vein using laser ?Z98.890 - Other specified postprocedural states (ICD-10) History of hysterectomy ?Z90.710 - Acquired absence of both cervix and uterus (ICD-10) History of appendectomy ?Z90.49 - Acquired absence of other specified parts of digestive tract (ICD- 10) History of cholecystectomy ?Z90.49 - Acquired absence of other specified parts of digestive tract (ICD- 10) Family History (Updated 06/06/24 @ 08:52 by Yulisa Weinstein) Father Varicose veins of both lower extremities with pain Brother Family history of cancer Social History (Updated 06/06/24 @ 08:55 by Yulisa Weinstein) Within the past year, how often did you have a drink containing alcohol: 2-4 times a month Within the past year, how often did you have six or more drinks on one occasion: never Smoking status: Never smoker Non-prescribed substance use: denies use Meds Home Medications and Allergies Home Medications ?Medication ?Instructions ?Recorded ?Confirmed ?Type aspirin .Route 06/06/24 History empagliflozin 25 mg tablet 25 mg PO DAILY 06/06/24 06/06/24 History (Jardiance) ibuprofen 200 mg capsule 200 mg PO TID-QID PRN pain 06/06/24 06/06/24 History insulin aspart (niacinamide) subcut 06/06/24 History insulin glargine subcut 06/06/24 History liraglutide 0.6 mg/0.1 mL (18 mg/3 See Rx Instructions subcut .COMPLEX 06/06/24 06/06/24 History mL) subcutaneous pen injector (Victoza 2-Enoc) metformin 1,000 mg tablet 1,000 mg PO DAILY 06/06/24 06/06/24 History Allergies Allergy/AdvReac Type Severity Reaction Status Date / Time No Known Drug Allergies Allergy Unverified 06/06/24 09:01 Exam Narrative Exam Narrative: new wound noted to posterior lateral aspect of right lower lecm in diameter yellow in color Alan Dias MD personally performed the services described in this documentation, as scribed by Julien Panda RN in my presence and it is both accurate and complete. Julien Dias RN, am scribing for, and in the presence of, Dr. Alan Hernández and in the presence of the patient. Constitutional Common normals: oriented x3 Lymph Lymphatic: no lymphedema noted Cardio Peripheral pulses: posterior tibial pulses present and dorsalis pedis pulses present Extremity General: calf tenderness, edema and other findings (Non-healing Ulcer) Right lower extremity: lower leg Right lower leg: inspection, palpation and other Left lower extremity: lower leg Left lower leg: inspection, palpation and other Neuro Common normals: oriented x3 Assessment and Plan Assessment and Plan (1) Varicose veins of bilateral lower extremities with pain: Plan f/u evaluation with physician along with right leg limited u/s Alan Dias MD personally performed the services described in this documentation, as scribed by Julien Panda RN in my presence and it is both accurate and complete. Julien Dias RN, am scribing for, and in the presence of, Dr. Alan Hernández and in the presence of the patient. Procedures Procedure Instructions Procedures Plan of care: Risks and benefits of the procedure were discussed at length and informed written consent was obtained.? Time-out completed for verification of correct patient, procedure and site.? Staff present during time-out: Julien Panda RN,? Alan Hernández MD, Ann Muller RDMS,RVT. Time Out Time__08 Patient prepped and procedure performed in usual sterile fashion. Risk of injury related to use of Diode laser and/or laser devices?__CR___ ? Serial number of laser used :? [id number] Control panel self test performed, electrical cords in good condition, floor is dry, basin of water available, fire extinguisher in close proximity_CR__ Polycarbonate goggles available and Laser warning signs outside of doors___CR__ Eye protection provided to patient and staff in room_CR___ Use of laser retardant drapes and dull blackened instruments as directed__CR___ Use of nonflammable prep solutions and use of saline soaked sponges to protect tissues as indicated _CR___ Length ___31 cm Laser operated by _Dr. Hernández Physician verbal confirmation laser locked in place__CR__ Laser start time (date and time) _06/16/2024@__0846 Laser stop time(date and time) _06/16/2024@_0850 Romero _8.0___ Average laser use __1826 Joules Average laser use___228 seconds Pulse continuous ___CR_? Pulse intermittent ___ Amount of Tumescent used _225cc Evaluated patient for signs and symptoms of electrical injury __CR___ ? Skin clear at insertion site __CR___ Patient tolerated procedure well.? Right leg Coban dressing applied to access site.? Applied right thigh high leg compression stocking. Will return on 06/20/2024 for right leg limited venous ultrasound and exam.
--- NOTE | 2024-06-15 14:38 | W.VEIN ---
Discharge Plan Discharge Disposition: Home, Self-Care Outpatient Diagnostics: VC Facility EST LMTD (Routine) Timeframe: 2 Weeks Facility: [facility] - Location: Vein Center Ordered By: Alan Hernández VC EXT Venous RT LMTD (Routine) Timeframe: 2 Weeks Facility: [facility] - Location: Vein Center Ordered By: Alan Hernández Follow Up Appointments: 06/20/2024 Plan of Treatment: f/u evaluation with physician along with right leg limited u/s Patient Instructions: Endovenous Ablation (DC) Print Language: Polish Discharge Date/Time: 06/16/24 08:43
--- NOTE | 2024-06-16 08:03 | VEIN_ITS ---
[address] [address] Patient Name: OXANA CASTRO MRN: [id number] date: 1955 Sex: F Assigned Patient Location: Current Patient Location: Accession/Order Number: [id number] Exam Date: 06/16/2024 08:10 Report Date: 06/16/2024 11:53 At the request of: COLTON HAMLIN Procedure: VC Endovenous Ablation 1VeinRT EXAMINATION: VC Endovenous Ablation 1VeinRT HISTORY: I83.813 - Varicose veins of bilateral lower extremities w... The risks and benefits of the procedure had been previously discussed, and were rediscussed at length. Informed written consent was obtained. Julien Panda RN and Ann Muller RDMS, RVT assisted. Time out procedure was performed. The right lower extremity was prepared and draped in the usual sterile fashion to allow knee flexion in the sterile field. Duplex ultrasound probe was draped in a sterile cover, sterile transmission gel was used. Venous mapping was performed with the areas of dilation and large tributaries marked. The total length was 31 cm from the entry 3 cm above the ankle to the popliteal fossa prior to its insertion into the muscular fascia and thigh extension.. The diameter of the right small saphenous vein ranged from 4.1 mm. A 30 gauge needle and 1% buffered lidocaine was used to anesthetize the entry site. A 4 mm incision was made with a scalpel and the saphenous vein was entered percutaneously under direct ultrasound guidance with a micropuncture set, a single stick was successful in gaining access. A micro-guide wire was inserted and the needle removed. A micro-set including a dilator was inserted over the microwire and the needle and dilator were removed. A guide wire was inserted through the micro-set and guided through the saphenous vein to the saphenofemoral junction. The dilator was removed and an introducer sheath was inserted over the wire until the end of the sheath entered the saphenofemoral junction. The dilator and wire were removed and the 600 micron fiber was introduced and placed and positioned so that it extended beyond the sheath and was 3 cm distal to the saphenofemoral or saphenopopliteal junction. Final position of the fiber was determined by ultrasound guidance and duplex imaging. Tumescent anesthetic was delivered by ultrasound guidance. 2025 cc of fluid was delivered along the entire course of the saphenous vein. The solution consisted of 1000 cc of normal saline with 40 mL of 1% lidocaine and 20 mL of sodium bicarbonate. A final positioning check was made. The energy source was turned on by means of the foot pedal and the fiber and sheath were withdrawn. The total number of Joules delivered was 1826. The laser was active for 2028 seconds under continuous pulse, average laser use of 8 J. Laser start time: 8:46 AM Laser stop time: 8:50 AM Date: 06/16/2024. A duplex ultrasound revealed compressibility and flow at the saphenofemoral junction immediately after the procedure. Hemostasis at the access site was achieved. The skin incision of the saphenous vein was closed with a 4 x 4. A compression stocking was applied. Postop instructions were given. A follow up appointment was recommended and scheduled. The patient tolerated the procedure well. Electronically authenticated by: MAVIS HERNANDEZ Date: 06/16/2024 11:53
[2024-06-16] MEDS: 0.9 % SODIUM CHLORIDE 500 ML, LIDOCAINE HCL 20 ML, SODIUM BICARBONATE 10 MEQ INJ (08:04)
[2024-06-16] MEDS: LIDOCAINE HCL 1% 100 MG/10 ML MDV INJ (08:04)
[2024-06-16 08:27] VITALS: BP 120/58; PULSE 88; O2SAT 96
== END 2024-06-16 08:43 | disposition home or self-care (01) ==
LOC: VC 08:03
PROVIDERS: PCP Radiology Diagnostic Radiology; Visit Provider Radiology Diagnostic Radiology
DX: I83.813 Varicose veins of bilateral lower extremities with pain (principal)
CPT/HCPCS: 36478

== ENCOUNTER 2024-06-20 10:27 | Outpatient (OUT) | payer MEDICARE, OTHER, SELFPAY ==
--- NOTE | 2024-06-20 07:23 | VEINCLINIC_ITS ---
Vital Signs 06/20/24 10:30 Height 5 ft 4 in Weight 117.9 kg BMI 44.6 Varicose Veins Patient in today for follow up ultrasound of right lower extremity following EVLT of right SSV completed on 06/16/24. Michele Dias MD personally performed the services described in this documentation, as scribed by Yulisa Weinstein RDMS in my presence and it is both accurate and complete. Yulisa Dias RDMS, am scribing for, and in the presence of, Dr. Michele Mccall and in the presence of the patient. thigh: bilateral, knee: bilateral, calf: bilateral and ruiz: bilateral aching, dull and other (heavy, itching) 5 5 yrs Worsened in recent months: Yes standing analgesics (Ibuprofen), bed rest, elevating extremities and compression stockings Reports limb pain, leg edema and other (bilateral leg ulcers) History of lower extremity trauma: No Superficial thrombophlebitis: No Family history of varicose veins: yes Has patient had previous lower extremity venous surgery: Yes Patient has previously received the following treatment(s) for lower extremity varicose veins: Reports vein ablation, phlebectomy and foam therapy Does patient have a history of : yes () Does patient intend to have future pregnancies: no Has patient had lower extremity venous scan with relux testing: Yes Support hose used: Yes Problems walking or doing physical activity: Yes How does it affect you: limited exercise limited due to pain Do you walk much: No Do you stand much: Yes Medication compliance: good Large amounts of Vitamin K: No Review of Systems ROS Narrative Michele Dias MD personally performed the services described in this documentation, as scribed by Yulisa Weinstein RDMS in my presence and it is both accurate and complete. Yulisa Dias RDMS, am scribing for, and in the presence of, Dr. Michele Mccall and in the presence of the patient. Status of ROS 10 or more systems reviewed and unremark able except as noted in history and below Cardiovascular Reports: edema, swelling of feet/ankles and leg pain with exertion Musculoskeletal Reports: extremity pain, extremity swelling, joint pain, joint swelling and muscle weakness Integumentary/Breast Reports: itching, redness, skin tenderness, skin swelling, non-healing lesion (lower left leg) and changes in skin color Neurological Reports: weakness in extremities PFSH PFSH Medical History (Updated 06/06/24 @ 09:12 by Yulisa Weinstein) Phlebitis and thrombophlebitis of superficial vessels of lower extremities, bilateral ?I80.03 - Phlebitis and thrombophlebitis of superficial vessels of lower extremities, bilateral (ICD-10) Phlebitis and thrombophlebitis of superficial vessels of left lower extremity ?I80.02 - Phlebitis and thrombophlebitis of superficial vessels of left lower extremity (ICD-10) Phlebitis and thrombophlebitis of superficial vessels of right lower extremity ?I80.01 - Phlebitis and thrombophlebitis of superficial vessels of right lower extremity (ICD-10) Varicose veins of bilateral lower extremities with pain ?I83.813 - Varicose veins of bilateral lower extremities with pain (ICD-10) Endometrial cancer ?C54.1 - Malignant neoplasm of endometrium (ICD-10) Obesity ?E66.9 - Obesity, unspecified (ICD-10) Diabetes mellitus type 2 with complications ?E11.8 - Type 2 diabetes mellitus with unspecified complications (ICD-10) Surgical History (Updated 06/16/24 @ 08:32 by Julien Panda) Status post ablation of incompetent vein using laser ?Z98.890 - Other specified postprocedural states (ICD-10) History of hysterectomy ?Z90.710 - Acquired absence of both cervix and uterus (ICD-10) History of appendectomy ?Z90.49 - Acquired absence of other specified parts of digestive tract (ICD- 10) History of cholecystectomy ?Z90.49 - Acquired absence of other specified parts of digestive tract (ICD- 10) Family History (Updated 06/06/24 @ 08:52 by Yulisa Weinstein) Father Varicose veins of both lower extremities with pain Brother Family history of cancer Social History (Updated 06/06/24 @ 08:55 by Yulisa Weinstein) Within the past year, how often did you have a drink containing alcohol: 2-4 times a month Within the past year, how often did you have six or more drinks on one occasion: never Smoking status: Never smoker Non-prescribed substance use: denies use Meds Home Medications and Allergies Home Medications ?Medication ?Instructions ?Recorded ?Confirmed ?Type aspirin .Route 06/06/24 History empagliflozin 25 mg tablet 25 mg PO DAILY 06/06/24 06/06/24 History (Jardiance) ibuprofen 200 mg capsule 200 mg PO TID-QID PRN pain 06/06/24 06/06/24 History insulin aspart (niacinamide) subcut 06/06/24 History insulin glargine subcut 06/06/24 History liraglutide 0.6 mg/0.1 mL (18 mg/3 See Rx Instructions subcut .COMPLEX 06/06/24 06/06/24 History mL) subcutaneous pen injector (Victoza 2-Enoc) metformin 1,000 mg tablet 1,000 mg PO DAILY 06/06/24 06/06/24 History Allergies Allergy/AdvReac Type Severity Reaction Status Date / Time No Known Drug Allergies Allergy Unverified 06/06/24 09:01 Exam Narrative Exam Narrative: Michele Dias MD personally performed the services described in this documentation, as scribed by Yulisa Weinstein RDMS in my presence and it is both accurate and complete. Yulisa Dias RDMS, am scribing for, and in the presence of, Dr. Michele Mccall and in the presence of the patient. Constitutional Common normals: oriented x3 Lymph Lymphatic: no lymphedema noted Cardio Peripheral pulses: posterior tibial pulses present and dorsalis pedis pulses present Extremity General: calf tenderness, edema and other findings (Non-healing Ulcer) Right lower extremity: lower leg Right lower leg: inspection, palpation and other Left lower extremity: lower leg Left lower leg: inspection, palpation and other Neuro Common normals: oriented x3 Results Imaging Venous US: Radiologist's impression: Heat induced thrombus in right SSV from distal thigh to distal lower leg. Michele Dias MD personally performed the services described in this documentation, as scribed by Yulisa Weinstein RDMS in my presence and it is both accurate and complete. Yulisa Dias RDMS, am scribing for, and in the presence of, Dr. Michele Mccall and in the presence of the patient. Assessment and Plan Assessment and Plan (1) Phlebitis and thrombophlebitis of superficial vessels of right lower extremity: Plan Plan is for patient to return for EVLT of left AASV on 06/29/24. Michele Dias MD personally performed the services described in this documentation, as scribed by Yulisa Weinstein RDMS in my presence and it is both accurate and complete. I, Yulisa Weinstein RDMS, am scribing for, and in the presence of, Dr. Michele Mccall and in the presence of the patient.
--- NOTE | 2024-06-20 10:28 | VEIN_ITS ---
Patient Name: OXANA CASTRO MR#: [id number] : 1955 Exam Date: 06/20/2024 Ordering Doctor: DR MAVIS HERNANDEZ M.D. RADIOLOGY REPORT PROCEDURE: FACILITY EST LMTD VEIN CENTER - OFFICE VISIT FOLLOW UP COMPARISON: [facility] EST LMTD, 06/06/2024. [facility] EST LMTD, 12/01/2023. PROGRESS NOTES: The patient reports no significant problems following intravenous laser ablation of the right small saphenous vein. The patient did wear her compression wraps. The patient did tried exercise to the best of her ability period. The patient did not require oral analgesics Physical exam demonstrates the incision to be sealed. No erythema or warmth to suggest a localized cellulitis. No active ulceration on the right leg. Moderate subcutaneous edema and skin thickening, improved from her initial presenting exam but still moderate period Review of the ultrasound performed the same day demonstrates occlusive thrombus extending throughout the treated right small saphenous vein. No deep vein thrombus. The patient expressed a desire to proceed with treatment incompetent left anterior accessory saphenous vein with intravenous laser ablation. VEIN/[facility] EST LMTD IMPRESSION: 1. Successful ablation of the right small saphenous vein 2. 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 PLAN: Intravenous laser ablation left anterior accessory saphenous vein Nurse notes, history and physical were reviewed and confirmed, see attached forms. The nurse was present throughout the physical exam and consultation Dictated by: Michele Mccall MD on 06/20/2024 at 10:45 Approved by: Michele Mccall MD on 06/20/2024 at 10:52
--- NOTE | 2024-06-20 10:28 | VEIN_ITS ---
Patient Name: OXANA CASTRO MR#: [id number] : 1955 Exam Date: 06/20/2024 Ordering Doctor: DR MAVIS HERNANDEZ M.D. RADIOLOGY REPORT PROCEDURE: VC EXT VENOUS RT LMTD COMPARISON: VC EXT VENOUS RT LMTD, 10/08/2023. VC EXT VENOUS RT LMTD, 08/26/2023. INDICATIONS: I80.01 - Phlebitis and thrombophlebitis of superficial veins right leg TECHNIQUE: Lower extremity samson scale and Duplex Doppler evaluation of the deep venous system from the inguinal ligament through the calf veins. FINDINGS: REGION: Right lower extremity. THROMBI: Negative for DVT. Heat induced thrombus in right SSV from distal thigh to distal lower leg. COMPRESSIBILITY: Non-compressible segments corresponding to thrombus FLOW: Areas of no flow corresponding to thrombus CONCLUSION: Post ablation occlusion of the treated right small saphenous vein with no deep vein thrombus Dictated by: Michele Mccall MD on 06/20/2024 at 10:43 Approved by: Michele Mccall MD on 06/20/2024 at 10:45
[2024-06-20 10:30] VITALS: BMI 44.6
--- NOTE | 2024-06-20 14:49 | W.VEIN ---
Discharge Plan Discharge Disposition: Home, Self-Care Outpatient Diagnostics: VC Endovenous Ablation 1VeinLT (Routine) Timeframe: 2 Weeks Facility: [facility] - Location: Vein Center Ordered By: Michele Mccall Follow Up Appointments: 06/29/24 Plan of Treatment: EVLT of left AASV EVLT Tumescent Anesthesia: 500 mL 0.9% NS with 20 mL 1% Lidocaine and 10 mL 8.4% NAHCO3 Buffered Local Anesthesia: 10 mL of 1% Lidocaine Buffered Print Language: Marshallese Discharge Date/Time: 06/20/24 14:50
== END 2024-06-20 14:50 | disposition home or self-care (01) ==
PROVIDERS: PCP Radiology Diagnostic Radiology; Visit Provider Radiology Diagnostic Radiology
DX: I80.01 Phlebitis and thrombophlebitis of superficial vessels of right lower extremity (principal)
CPT/HCPCS: 93971; G0463

== ENCOUNTER 2024-06-29 10:26 | Outpatient (OUT) | payer MEDICARE, OTHER, SELFPAY ==
--- NOTE | 2024-06-28 11:34 | V.VEINS.HP ---
Vital Signs 06/29/24 10:53 06/29/24 11:01 Height 5 ft 4 in Weight 117.934 kg BP 120/64 BP Location Right Brachial BP Position Sitting BP Cuff Size Adult BP Source Manual Cuff Respiration 18 Pulse 79 Pulse Source Monitor Pulse Oximetry (%) 97 Oxygen Delivery Method Room Air Comment The patient's blood pressure is elevated. Varicose Veins Patient in today for EVLT of left AASV Michele Dias MD personally performed the services described in this documentation, as scribed by Julien Panda RN in my presence and it is both accurate and complete. IJulien RN, am scribing for, and in the presence of, Dr. Michele Mccall and in the presence of the patient. thigh: bilateral, knee: bilateral, calf: bilateral and ruiz: bilateral aching, dull and other (heavy, itching) 5 5 yrs Worsened in recent months: Yes standing analgesics (Ibuprofen), bed rest, elevating extremities and compression stockings Reports limb pain, leg edema and other (bilateral leg ulcers) History of lower extremity trauma: No Superficial thrombophlebitis: No Family history of varicose veins: yes Has patient had previous lower extremity venous surgery: Yes Patient has previously received the following treatment(s) for lower extremity varicose veins: Reports vein ablation, phlebectomy and foam therapy Does patient have a history of : yes () Does patient intend to have future pregnancies: no Has patient had lower extremity venous scan with relux testing: Yes Support hose used: Yes Problems walking or doing physical activity: Yes How does it affect you: limited exercise limited due to pain Do you walk much: No Do you stand much: Yes Medication compliance: good Large amounts of Vitamin K: No Review of Systems ROS Narrative Michele Dias MD personally performed the services described in this documentation, as scribed by Julien Panda RN in my presence and it is both accurate and complete. Julien Dias RN, am scribing for, and in the presence of, Dr. Michele Mccall and in the presence of the patient. Status of ROS 10 or more systems reviewed and unremarkable except as noted in history and below Cardiovascular Reports: edema, swelling of feet/ankles and leg pain with exertion Musculoskeletal Reports: extremity pain, extremity swelling, joint pain, joint swelling and muscle weakness Integumentary/Breast Reports: itching, redness, skin tenderness, skin swelling, non-healing lesion (lower left leg) and changes in skin color Neurological Reports: weakness in extremities PFSH [facility] Medical History (Updated 06/06/24 @ 09:12 by Yulisa Weinstein) Phlebitis and thrombophlebitis of superficial vessels of lower extremities, bilateral ?I80.03 - Phlebitis and thrombophlebitis of superficial vessels of lower extremities, bilateral (ICD-10) Phlebitis and thrombophlebitis of superficial vessels of left lower extremity ?I80.02 - Phlebitis and thrombophlebitis of superficial vessels of left lower extremity (ICD-10) Phlebitis and thrombophlebitis of superficial vessels of right lower extremity ?I80.01 - Phlebitis and thrombophlebitis of superficial vessels of right lower extremity (ICD-10) Varicose veins of bilateral lower extremities with pain ?I83.813 - Varicose veins of bilateral lower extremities with pain (ICD-10) Endometrial cancer ?C54.1 - Malignant neoplasm of endometrium (ICD-10) Obesity ?E66.9 - Obesity, unspecified (ICD-10) Diabetes mellitus type 2 with complications ?E11.8 - Type 2 diabetes mellitus with unspecified complications (ICD-10) Surgical History (Updated 06/29/24 @ 11:21 by Julien Panda) Status post laser ablation of incompetent vein ?Z98.890 - Other specified postprocedural states (ICD-10) Status post ablation of incompetent vein using laser ?Z98.890 - Other specified postprocedural states (ICD-10) History of hysterectomy ?Z90.710 - Acquired absence of both cervix and uterus (ICD-10) History of appendectomy ?Z90.49 - Acquired absence of other specified parts of digestive tract (ICD-10) History of cholecystectomy ?Z90.49 - Acquired absence of other specified parts of digestive tract (ICD-10) Family History (Updated 06/06/24 @ 08:52 by Yulisa Weinstein) Father Varicose veins of both lower extremities with pain Brother Family history of cancer Social History (Updated 06/06/24 @ 08:55 by Yulisa Weinstein) Within the past year, how often did you have a drink containing alcohol: 2-4 times a month Within the past year, how often did you have six or more drinks on one occasion: never Smoking status: Never smoker Non-prescribed substance use: denies use Meds Home Medications and Allergies Home Medications ?Medication ?Instructions ?Recorded ?Confirmed ?Type aspirin .Route 06/06/24 History empagliflozin 25 mg tablet 25 mg PO DAILY 06/06/24 06/06/24 History (Jardiance) ibuprofen 200 mg capsule 200 mg PO TID-QID PRN pain 06/06/24 06/06/24 History insulin aspart (niacinamide) subcut 06/06/24 History insulin glargine subcut 06/06/24 History liraglutide 0.6 mg/0.1 mL (18 mg/3 See Rx Instructions subcut .COMPLEX 06/06/24 06/06/24 History mL) subcutaneous pen injector (Victoza 2-Enoc) metformin 1,000 mg tablet 1,000 mg PO DAILY 06/06/24 06/06/24 History Allergies Allergy/AdvReac Type Severity Reaction Status Date / Time No Known Drug Allergies Allergy Unverified 06/06/24 09:01 Assessment and Plan Assessment and Plan (1) Varicose veins of bilateral lower extremities with pain: Plan Patient to return for examination with physician along with left leg limited u/s Michele Dias MD personally performed the services described in this documentation, as scribed by Julien Panda RN in my presence and it is both accurate and complete. Julien Dias RN, am scribing for, and in the presence of, Dr. Michele Mccall and in the presence of the patient. Procedures Procedure Instructions Procedures Plan of care: Risks and benefits of the procedure were discussed at length and informed written consent was obtained.? Time-out completed for verification of correct patient, procedure and site.? Staff present during time-out: Julien Panda RN,? Michele Mccall MD, [facility]/T Time Out Time__1057 Patient prepped and procedure performed in usual sterile fashion. Risk of injury related to use of Diode laser and/or laser devices __CR___ ? Serial number of laser used :? [id number] Control panel self test performed, electrical cords in good condition, floor is dry, basin of water available, fire extinguisher in close proximity_CR__ Polycarbonate goggles available and Laser warning signs outside of doors___CR__ Eye protection provided to patient and staff in room_CR___ Use of laser retardant drapes and dull blackened instruments as directed__CR___ Use of nonflammable prep solutions and use of saline soaked sponges to protect tissues as indicated _CR___ Length ___13 cm Laser operated by _. [place] Physician verbal confirmation laser locked in place__CR__ Laser start time (date and time) _06/28/2024@__1108 Laser stop time(date and time) ___06/28/2024@_1110 Romero _8.0___ Average laser use __815 Joules Average laser use___102 seconds Pulse continuous ___CR_? Pulse intermittent ___ Amount of Tumescent used _120cc Evaluated patient for signs and symptoms of electrical injury __CR___ ? Skin clear at insertion site __CR___ Patient tolerated procedure well.? Left leg Coban dressing applied to access site.? Applied Left thigh high leg compression stocking. Will return on 07/06/2024 for Left leg limited venous ultrasound and exam.
--- NOTE | 2024-06-28 11:38 | P.DS_ITS ---
Discharge Plan Discharge Disposition: Home, Self-Care Outpatient Diagnostics: VC Facility EST LMTD (Routine) Timeframe: 2 Weeks Facility: [facility] - Location: Vein Center Ordered By: Michele Mccall VC EXT Venous LT Limited (Routine) Timeframe: 2 Weeks Facility: [facility] - Location: Vein Center Ordered By: Michele Mccall Follow Up Appointments: 07/06/2024 Plan of Treatment: f/u examination with physician along with left leg limited u/s Patient Instructions: Endovenous Ablation (DC) Print Language: Barbadian Discharge Date/Time: 06/29/24 11:05
--- NOTE | 2024-06-29 10:27 | VEIN_ITS ---
[address] [address] Patient Name: OXANA CASTRO MRN: [id number] date: 1955 Sex: F Assigned Patient Location: Current Patient Location: Accession/Order Number: [id number] Exam Date: 06/29/2024 10:34 Report Date: 06/29/2024 12:56 At the request of: COLTON HAMLIN Procedure: VC Endovenous Ablation 1VeinLT EXAMINATION: VC Endovenous Ablation 1Vein , left anterior accessory saphenous vein HISTORY: I83.813 - Varicose veins of bilateral lower extremities w... COMPARISON: No relevant comparison available. TECHNIQUE: The risks and benefits of the procedure had been previously discussed, and were rediscussed at length. Informed written consent was obtained. Shanna Muller and Julien Panda assisted. Time out procedure was performed. The left lower extremity was prepared and draped in the usual sterile fashion to allow knee flexion in the sterile field. Duplex ultrasound probe was draped in a sterile cover, sterile transmission gel was used. Venous mapping was performed with the areas of dilation and large tributaries marked. The total length was 13 cm from the entry upper thigh to 3 cm below the saphenofemoral junction. The diameter of the left anterior accessory saphenous vein ranged from 6-10 mm. A 30 gauge needle and 1% buffered lidocaine was used to anesthetize the entry site. A 4 mm incision was made with a scalpel and the saphenous vein was entered percutaneously under direct ultrasound guidance with a micropuncture set, a single stick was successful in gaining access. A micro-guide wire was inserted and the needle removed. A micro-set including a dilator was inserted over the microwire and the needle and dilator were removed. A 0.018 guide wire was inserted through the micro-set and threaded through the saphenous vein to the saphenofemoral junction. The dilator was removed and an introducer sheath was inserted over the wire until the end of the sheath entered the saphenofemoral junction. The dilator and wire were removed and the 600 micron fiber was introduced and placed and positioned so that it extended beyond the sheath and was 3 cm peripheral to the saphenofemoral femoral junction. Final position of the fiber was determined by ultrasound guidance and duplex imaging. Tumescent anesthetic was delivered by ultrasound guidance. 120 cc of fluid was delivered along the entire course of the saphenous vein. The solution consisted of 1000 cc of normal saline with 40 mL of 1% lidocaine and 20 mL of sodium bicarbonate. A final positioning check was made. The energy source was turned on by means of the foot pedal and the fiber and sheath were withdrawn. The total number of Joules delivered was 815. The laser was active for 102 seconds under continuous pulse, average laser use of 8 J. Laser start time 11:08 AM 06/29/2024 . Laser stop time 11:10 AM 06/27/2024 . A duplex ultrasound revealed compressibility and flow at the saphenofemoral junction immediately after the procedure. Hemostasis at the access site was achieved. The skin incision of the saphenous vein was closed with a 4 x 4. A compression stocking was applied. Postop instructions were given. A follow up appointment was recommended and scheduled. The patient tolerated the procedure well and was discharged in good condition . VEIN/VC Endovenous Ablation 1VeinLT IMPRESSION: Technically successful endovenous laser ablation left anterior accessory saphenous vein Electronically authenticated by: COLTON HAMLIN Date: 06/29/2024 12:56
[2024-06-29] MEDS: LIDOCAINE HCL 1% 100 MG/10 ML MDV INJ (10:28)
[2024-06-29] MEDS: 0.9 % SODIUM CHLORIDE 500 ML, LIDOCAINE HCL 20 ML, SODIUM BICARBONATE 10 MEQ INJ (10:30)
--- OUTSIDE RECORDS SUMMARY | 2024-06-29 10:47 | XMS_ITS | CCD ---
Author Organization [facility] CliniSywv Care Team Providers Care 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Crimping Name Role Phone Rosanne Dumont Unavailable Sherman Larson Unavailable DO Sherman Larson Primary Care Provider [phone] DO Sherman Larson Attending Provider [phone] DO Dawn Sow Referring Provider [phone] Self, Referral Attending Provider Unavailable Sherman Larson DO Primary Care Provider Sherman Larson DO Primary Care Provider [phone] Heidi Sanchez Unavailable DO Sherman Larson Primary Care Provider DO Sherman Larson Attending Provider [phone] WALTER Poole Attending Provider [phone] WALTER Dumont Other Provider WALTER Poole Attending Provider [phone] DO Sherman Larson Primary Care Provider [phone] DO Sherman Larson Attending Provider [phone] Self, Referral Attending Provider Unavailable DO Sherman Larson Primary Care Provider [phone] WALTER Poole Attending Provider Self, Referral Attending Provider Unavailable DO Sherman Larson Attending Provider [phone] LAQUITA Benitez Attending Provider DO Sherman Larson Primary Care Provider [phone] Kuns DO, Sherman P Primary Care Provider Kuns, DO Sherman Primary Care Provider [phone] WALTER Poole Attending Provider Kuns, DO Sherman Attending Provider [phone] MapusWALTER Tondra K Referring Provider ЮЛИЯ ODOM Referring Unavailabl e ЮЛИЯ ODOM Attending Unavailabl e KUNS, SHERMAN P Primary Care Unavailable Kuns, DO Sherman Primary Care Provider WALTER Poole Attending Provider [phone] KUNS, SHERMAN P Primary Care Unavailable ERIKA, RITESH Admitting Unavailable SIGRID RANDALLMER Attending Unavailable KUNS, SHERMAN P Primary Care Unavailable ALLEY AUGUSTIN Attending Unavailable KUNS, SHERMAN P Primary Care Unavailable ЮЛИЯ ODOM Referring Unavailabl e KUNS, SHERMAN P Primary Care Unavailable ЮЛИЯ ODOM Referring Unavailabl e KUNS, SHERMAN P Primary Care Unavailable ЮЛИЯ ODOM Referring Unavailabl e KUNS, SHERMAN P Primary Care Unavailable GARЮЛИЯ ZHU Referring Unavailabl e KUNS, SHERMAN P Primary Care Unavailable KUNS, SHERMAN P Primary Care Unavailable JULES NAVAS Attending Unavailab le Kuns, Sherman Attending Unavailable Kuns, Sherman Admitting Unavailable Kuns, Sherman Primary Care Unavailable Copsey, Hien Admitting Unavailable CopseyHien Attending Unavailable Kuns, Sherman Primary Care Unavailable Kuns, Sherman Primary Care Unavailable Kuns, Sherman Attending Unavailable Kuns, Sherman Admitting Unavailable Mapus, Tondra K Referring Unavailable Kuns, Sherman Primary Care Unavailable Kuns, Sherman Attending Unavailable Kuns, Sherman Admitting Unavailable Eli, Judith A Admitting Unavailable Eli, Judith A Attending Unavailable Kuns, Sherman Primary Care Unavailable Self, Referral Admitting Unavailable Self, Referral Attending Unavailable Kuns, Sherman Primary Care Unavailable CopseyHien Attending Unavailable Kuns, Sherman Primary Care Unavailable Copsey, Hien Admitting Unavailable Kuns, DO Sherman Primary Care Provider WALTER Poole Attending Provider Medications Current Medications Medication Drug Class(es) Dates Sig (Normalized) Sig (Original) aspirin 325 mg oral tablet (20 sources) Platelet Aggregation Inhibitor, Nonsteroidal Anti-inflammatory Drug Start: 03-25-2023 End: 12-15-2023 take 325 mg by mouth once daily Aspirin Active 325 MG PO Daily December 15, 2023 11:40am Start: 12-07-2018 aspirin, enter ic coated (ASPIRIN, ENTERIC COATED) 81 mg EC tablet Aspirin (Aspirin Low Dose) 81 mg Tablet,Delayed Release (Dr/Ec) Active 2 TAB PO Daily December 07, 2018 11:02am 12/07/2018 Active Start: 12-07-2018 aspirin, enter ic coated (ASPIRIN, ENTERIC COATED) 81 mg EC tablet Aspirin (Aspirin Low Dose) 81 mg Tablet,Delayed Release (Dr/Ec) Active 2 TAB PO Daily December 07, 2018 11:02am 0 12/07/2018 Active Start: 12-07-2018 End: 03-25-2023 take 2 tablets by mouth once daily Aspirin (Arie Low Dose Aspirin) 81 mg Tablet,Delayed Release (Dr/Ec) Discontinued 2 TAB PO Daily December 07, 2018 1:00am March 25, 2023 2:33pm take 1 tablet by keon th once daily Aspirin 325 mg 325 mg one tab orally daily Active Comment on above: Aspirin (Aspirin Low Dose) 81 mg Tablet,Delayed Release (Dr/Ec) Active 2 TAB PO Daily December 07, 2018 11:02am atorvastatin 10 mg oral tablet (20 sources) HMG-CoA Reductase Inhibitor Start: 12-15-19 take 1 tablet by mouth two times weekly Atorvastatin (Lipitor) 10 mg tablet Active 10 MG PO Twice a Week December 15, 2023 11:39am Start: 06-05-2016 End: 12-15-2023 Atorvastatin (Lipitor) 10 mg Tablet Discontinued 10 MG PO EVERY 3-4 DAYS January 06, 2018 12:00am December 15, 2023 11:46am Start: 06-05-2016 take 1 tablet by keon th two times weekly Lipitor 10 mg 1 tablet Orally Twice a week May, Active Start: 06-05-2016 Lipitor 10 mg 1 tablet every 2 days Orally Once a day May, Active Comment on above: Take 10 mg by mouth once daily. Every other day per cholecalciferol 0.125 mg oral tablet (20 sources) Vitamin D Start: End: take 1 tablet by mouth once daily Cholecalciferol (Vitamin D3) (Vitamin D3) 125 mcg (5,000 unit) tablet Active 5000 UNIT PO Daily December 15, 2023 11:40am empagliflozin 25 mg oral tablet (20 sources) Sodium-Glucose Cotransporter 2 Inhibitor Start: take 1 tablet by mouth once daily Empagliflozin (Jardiance) 25 mg Tablet Active 25 MG PO Daily January 06, 2018 12:00am Comment on above: Take 25 mg by mouth once daily. enteric contrast (will be provided with radiology test) (20 sources) Start: End: enteric contrast (will be provided with radiology test) For CT CHESTABD/PEL W IVCON Routine order Administer, As Directed One Time Only, via Oral, Rectal, both Oral and Rectal, Enteric Tube, Stoma or Indwelling Catheter, Enteric Contrast as designated per enteric contrast guidelines 1 Each 06/01/2024 06/02/2024 Active Start: 09-19-[address] (will be provided with radiology test) For CT CHESTABD/PEL W IVCON Routine order Administer, As Directed One Time Only, via Oral, Rectal, both Oral and Rectal, Enteric Tube, Stoma or Indwelling Catheter, Enteric Contrast as designated per enteric contrast guidelines 1 Each 09/19/2021 Active Start: 09-19-[address] (will be [...] designated per enteric contrast guidelines 1 Each 04/03/2021 Active Start: 04-03-[address] (will [...] Contrast as designated per enteric contrast guidelines FreeStyle Precision Joe Test - (19 sources) FreeStyle Precis ion Joe Test - use to double check BG with sensor In Vitro PRN for 90 days Active gentamicin 0.001 mg/mg topic al ointment (16 sources) Start: 05-17-2024 Gentamicin Act kyle 1 APPLIC TOPICAL .3 times weekly 30 May 17, 2024 12:00am apply to left leg wound as per wound orders Start: 05-31-2018 End: 06-30-2018 Gentamicin Discontinued 1 AP PLIC TOPICAL Daily 30 May 31, 2018 12:00am June 30, 2018 12:01am apply thin layer to left leg wound sodium hypochlorite 2.5 mg/m l topical solution (16 sources) Start: 05-17-2024 Sodium Hypochl orite (Dakin's Solution) 0.25 % solution Active 1 APPLIC TOPICAL .3 times weekly 473 May 17, 2024 12:00am cleanse left leg ulcer as per wound orders Start: 03-05-2018 End: 11-02-2018 Sodium Hypochlorite (Dakin's Solution) 0.25 % solution Discontinued 1 APPLIC TOPICAL Daily 473 March 05, 2018 12:00am November 02, 2018 10:58am 3 ml insulin aspart, human 100 unt/ml pen injector (20 sources) Insulin Analog Start: 12-15-2023 Insulin Aspart (Niacinamide) (Fiasp Flextouch U-100 Insulin) 100 unit/mL (3 mL) insulin pen Active 0 SUBCUT .COMPLEX December 15, 2023 1:00am 1:5 carb ratio ac tid. Corrective scale 1:20 ac tid; (hs if >200 half dose) Subcutaneous as directed; (expect up to 40 units/day) Start: 03-25-2023 End: 12-15-2023 Insulin Aspart (Niacinamide) (Fiasp U-100 Insulin) 100 unit/mL Solution Discontinued 0 .ROUTE .COMPLEX March 25, 2023 12:00am December 15, 2023 11:42am per sliding scale Start: 11-25-2022 FIASP FLEXTOUC H U-100 INSULIN 100 unit/mL (3 mL) pen 11/25/2022 Active Fiasp FlexTouch 100 UNIT/ML 1:5 carb ratio [...] Daily at bedtime January 06, 2018 12:00am inject 40 [IU] by nash bcutaneous injection once daily at bedtime insulin glargine (LANTUS) 100 unit/mL (3 mL) inpn Inject 40 Units subcutaneously daily at bedtime. Active inject 40 [IU] by nash bcutaneous [...] Active Comment on above: Inject 40 Units subcutaneously daily at bedtime. Insulin Glargine (Lantus U-100 Insulin) 100 unit/mL solution (6 sources) Start: 024 inject 40 [IU] by subcutaneous injection once daily at bedtime Insulin Glargine (Lantus U-100 Insulin) 100 unit/mL solution Active 40 UNIT SUBCUT Daily at bedtime December 15, 2023 11:43am INV VITAMIN D3 5000 UNITS CAPSULE (IRB 19-1548) (20 sources) take 1 capsule by mouth once daily INV VITAMIN D3 5000 UNITS CAPSULE (IRB 19-1548) Take 5,000 Units by mouth once daily. For Investigational Drug Use Only. PI: Jules Swan, PhD. Take one capsule by mouth daily for 3 months prior to surgery and 3 months after surgery. Active take 1 capsule by mouth once jillian ly INV VITAMIN D3 5000 UNITS CAPSULE (IRB 19- 1548) Take 5,000 Units by mouth once daily. For Investigational Drug Use Only. PI: Jules Swan, PhD. Take one capsule by mouth daily for 3 months prior to surgery and 3 months after surgery. 0 Active Comment on above: Take 5,000 Units by mouth once daily. For Investigational Drug Use Only. PI: Jules Swan, PhD. Take one capsule by mouth daily for 3 months prior to surgery and 3 months after surgery. iv contrast (will be provided with radiology test) (20 sources) Start: 06-01-2024 End: 06-02-2024 iv contrast (will be provided with radiology [...] CT contrast administration guidelines link. 1 Each 06/01/2024 06/02/2024 Active Start: 04-11-2024 End: 04-12-2024 iv contrast (will be provide d with radiology test) CT Chest W -Inject, intravenously, once for 1 dose.No IV access, [...] contrast administration guidelines link. 1 Each 0 04/11/2024 04/12/2024 Active Start: 02-17-2024 End: 02-18-2024 iv contrast (will be provide d with radiology test) MRI PANC/KOBI Inject, intravenously, once for 1 dose. No IV access, insert saline lock prior to the beginning of sedation, infusion, injection of imaging exam. Discontinue saline lock post exam. If Pt. has a central line or IVAD, may access for administration according to line specific nursing protocol. Once exam is complete flush line and de-access according to line specific nursing protocol in the MR contrast administration guidelines link. 1 Each 0 02/17/2024 02/18/2024 Active Start: 09-19-2021 End: 02-17-2024 iv contrast (will be provide d with radiology test) CT Chest ABD/PEL-Inject, intravenously, [...] administration guidelines link. 1 Each 0 09/19/2021 02/17/2024 Discontinued (Course of therapy completed) Start: 09-19-2021 iv contrast (w ill be provided with [...] 1 Each 0 09/19/2021 Active Start: 04-03-2021 End: 02-17-2024 iv contrast (will be provide d with radiology test) CT Chest ABD/PEL-Inject, intravenously, [...] administration guidelines link. 1 Each 0 04/03/2021 02/17/2024 Discontinued Start: 04-03-2021 iv contrast (w ill be [...] in the CT contrast administration guidelines link. 3 ml liraglutide 6 mg/ml pen injector (20 sources) GLP-1 Receptor Agonist Start: 12-15-2023 Liraglutide (Victoza 2-Enoc) 0.6 mg/0.1 mL (18 mg/3 mL) pen injector Active 1.8 MG SUBCUT Every morning December 15, 2023 11:43am Start: 01-06-2018 End: 12-15-2023 Liraglutide (Victoza 2-Enoc) 0.6 mg/0.1 mL (18 mg/3 mL) Pen Injector Discontinued 1.2 MG SUBCUT Every morning January 06, 2018 12:00am December 15, 2023 11:46am Comment on above: Inject 1.8 mg subcut aneously once daily. 24 hr metFORMIN hydrochloride 500 mg extended release oral tablet (20 sources) Biguanide Start: take 1000 mg by mouth twice daily Metformin Active 1000 MG PO Twice daily December 15, 2023 1:00am Start: 01-06-2018 End: 12-15-2023 take 1 tablet by mouth twice daily Metformin (Glucophage) 1,000 mg Tablet Discontinued 1000 MG PO Twice daily January 06, 2018 12:00am December 15, 2023 11:43am metFORMIN HCl ER 500 MG TAKE 2 TABLETS TWICE A DAY Active take 2 tablets by mo [facility] twice daily Glucophage XR 500 mg 2 tabs Orally bid Active Comment on above: Take 1,000 mg by keon th twice daily with meals. pen needle, diabetic (BD Ultra-Fine Donita Pen Needle) (6 sources) Start: 12-15-2023 pen needle, diabetic (BD Ultra-Fine Donita Pen Needle) Active .Route December 15, 2023 1:00am probiotic (3 sources) probiotic as dir ected Active VITAMIN B COMPLEX ORAL (20 sources) VITAMIN B COMPLE X ORAL Take by mouth q 24 HR. Active VITAMIN B COMPLE X ORAL Take by mouth q 24 HR. 0 Active Comment on above: Take by mouth q 24 H R. vitamin b12 1 mg oral tablet (20 sources) Vitamin B12 Start: 01-06-2018 End: 12-15-2023 take 1 tablet by mouth once daily Cyanocobalamin (Vitamin B-12) (Vitamin B-12) 1,000 mcg tablet Active 1000 MCG PO Daily December 15, 2023 11:40am take 1 tablet by mouth once job y Cyanocobalamin 1000 MCG 1 tablet Orally Once a day VIt b12 Not-Taking take 1 tablet by mouth once jbo y Cyanocobalamin 1000 MCG 1 tablet Orally Once a day VIt b12 Active Comment on above: Cyanocobalamin (Shayne min B-12) (Vitamin B-12) 1,000 mcg Tablet Active 1000 MCG PO Daily January 06, 2018 9:27am Vitamin D 5000 (19 sources) Vitamin D 5000 1 cap(s) p.o. daily Active Completed/Discontinued Medications Medication Drug Class(es) Dates Sig (Normalized) Sig (Original) acetaminophen 500 mg oral tablet (20 sources) Start: 11-17-2018 End: 06-28-2024 take 500 mg by mouth every six hours Acetaminophen Discontinued 500 MG PO Q6H 0 October 29, 2020 1:37pm June 28, 2024 9:58am [id number] 200 actuat albuterol 0.09 mg/actuat metered dose inhaler (14 sources) beta2-Adrenergic Agonist Start: 10-29-2020 End: 07-17-2021 take 1 puff(s) by inhalation every three hours Albuterol Sulfate (Ventolin Hfa) 90 mcg/actuation Hfa Aerosol Inhaler Discontinued 2 PUFF INHALATION Q3H 6.7 October 29, 2020 1:00am July 17, 2021 8:37am amoxicillin 875 mg / clavulanate 125 mg oral tablet (20 sources) Penicillin-class Antibacterial Start: 05-16-2024 End: 05-26-2024 take 1 tablet by mouth twice daily Amoxicillin-Pot Clavulanate Discontinued 1 TAB PO Twice daily May 16, 2024 12:00am May 26, 2024 1:59pm Start: 03-30-2024 End: 05-26-2024 take 1 tablet by mouth twice daily Amoxicillin-Pot Clavulanate (Augmentin) 500-125 mg tablet Discontinued 1 TAB PO Twice daily April 18, 2024 12:00am May 26, 2024 1:59pm Start: 02-08-2024 End: 03-01-2024 take 1 tablet by mouth twice daily Amoxicillin-Pot Clavulanate (Augmentin) 500-125 mg tablet Discontinued 1 TAB PO Twice daily February 08, 2024 12:00am March 01, 2024 9:03am Start: 02-19-2023 End: 02-25-2023 take 1 tablet by mouth every twelve hours amoxicillin-clavulanic acid (AUGMENTIN) 500-125 mg per tablet Take 1 tablet by mouth every 12 hours for 5 days. 10 tablet 0 02/19/2023 02/25/2023 Active Start: 12-09-2018 End: 12-23-2018 take 1 tablet by mouth twice daily Amoxicillin-Pot Clavulanate (Augmentin) 875-125 mg tablet Discontinued 1 TAB PO Twice daily December 09, 2018 1:00am December 23, 2018 12:02am Comment on above: Take 1 tablet by keon th every 12 hours for 5 days. ampicillin 500 mg oral capsule (14 sources) Penicillin-class Antibacterial Start: 8 End: 8 take 500 mg by mouth every six hours Ampicillin Discontinued 500 MG PO Q6H 56 May 31, 2018 12:00am June 14, 2018 12:01am azithromycin 250 mg oral tablet (10 sources) Macrolide Antimicrobial Start: 2 Zithromax Z-Enoc 250 MG 2 tablet on the first day, then 1 tablet daily for 4 days Orally Once a day for 5 day(s) Mar, Not-Taking B-12 - up to 1000 mcg (16 sources) Start: 6 Start: 05-21-2016 B-12 - up to 1 000 mcg May, 1 mL Bacillus coagulans (6 sources) Start: 12-15-2023 End: 01-20-2024 Bacillus coagulans (Probiotic (B. coagulans)) Discontinued PO Daily December 15, 2023 1:00am January 20, 2024 9:27am benzonatate 200 mg oral capsule (3 sources) Non-narcotic Antitussive Start: 03-24-2022 take 1 capsule by mouth every eight hours Benzonatate 200 MG 1 capsule Orally Three times a day for 30 day(s) Mar, Not-Taking cephalexin 500 mg oral capsule (20 sources) Cephalosporin Antibacterial Start: 01-20-2024 End: 02-11-2024 take 500 mg by mouth twice daily Cephalexin Discontinued 500 MG PO Twice daily 31 07January 20, 2024 12:00am February 11, 2024 10:36am Start: 04-09-2023 End: 04-20-2023 take 500 mg by mouth twice daily Cephalexin Discontinued 500 MG PO Twice daily 14 April 09, 2023 12:00am April 20, 2023 9:23am start this on 04/10/23 or 04/11/23 Start: 02-02-2018 End: 02-09-2018 take 1 capsule by mouth twice daily Cephalexin (Keflex) 500 mg capsule Discontinued 500 MG PO Twice daily 14 February 02, 2018 12:00am February 09, 2018 12:01am dexamethasone 6 mg oral tablet (14 sources) Corticosteroid Start: 10-29-2020 End: 07-17-2021 take 6 mg by mouth once daily Dexamethasone Discontinued 6 MG PO Daily 3 October 29, 2020 1:00am July 17, 2021 8:38am doxycycline hyclate 100 mg oral capsule (20 sources) Tetracycline-class Drug Start: 03-25-2023 End: 04-20-2023 take 100 mg by mouth twice daily Doxycycline Hyclate Discontinued 100 MG PO Twice daily March 25, 2023 12:00am April 20, 2023 9:23am Start: 11-04-2019 End: 11-14-2019 take 100 mg by mouth twice daily Doxycycline Hyclate Discontinued 100 MG PO Twice daily 31 07November 04, 2019 1:00am November 14, 2019 9:04am Start: 03-05-2018 End: 03-19-2018 take 100 mg by mouth twice daily Doxycycline Hyclate Discontinued 100 MG PO Twice daily March 05, 2018 12:00am March 19, 2018 12:02am Start: 02-04-2018 End: 02-18-2018 take 100 mg by mouth twice daily Doxycycline Hyclate Discontinued 100 MG PO Twice daily February 04, 2018 12:00am February 18, 2018 12:01am famotidine 20 mg oral tablet (14 sources) Histamine-2 Receptor Antagonist Start: 10-29-2020 End: 07-17-2021 take 20 mg by mouth twice daily Famotidine Discontinued 20 MG PO Twice daily October 29, 2020 1:00am July 17, 2021 8:38am fluconazole 150 mg oral tablet (20 sources) Azole Antifungal Start: 06-22-2023 End: 01-20-2024 Fluconazole (Diflucan) 150 mg tablet Discontinued 150 MG PO Q3D June 22, 2023 12:00am January 20, 2024 9:28am february repeat second dose 72 hrs after first dose if symptoms persist Start: 04-09-2023 End: 04-20-2023 take 1 tablet by mouth once daily Fluconazole (Diflucan) 150 mg tablet Discontinued 150 MG PO Daily April 09, 2023 12:00am April 20, 2023 9:23am administer on day 1 of therapy furosemide 40 mg oral tablet (14 sources) Loop Diuretic Start: 10-29-2020 End: 07-17-2021 take 40 mg by mouth once daily Furosemide Discontinued 40 MG PO Daily at 0800 30 October 29, 2020 1:00am July 17, 2021 8:38am glimepiride 4 mg oral tablet (20 sources) Sulfonylurea Start: 01-06-2018 End: 03-25-2023 take 1 tablet by mouth twice daily Glimepiride (Amaryl) 4 mg Tablet Discontinued 4 MG PO Twice daily January 06, 2018 12:00am March 25, 2023 2:33pm Comment on above: Take 4 mg by mouth t wice daily with meals. horse chestnut seed 300 mg oral capsule (12 sources) Start: 03-25-2023 End: 01-20-2024 take 300 mg by mouth once daily Horse Whitethorn Discontinued 300 MG PO Daily March 25, 2023 12:00am January 20, 2024 9:28am ibuprofen 200 mg oral tablet (14 sources) Nonsteroidal Anti-inflammatory Drug Start: 01-06-2018 End: 11-17-2018 take 200 mg by mouth every four to six hours Ibuprofen Discontinued 200 MG PO EVERY 4-6 HOURS January 06, 2018 12:00am November 17, 2018 8:51am Insulin Glargine (Lantus U-100 Insulin) 100 unit/mL Solution (12 sources) Start: 01-06-2018 End: 12-15-2023 inject 38 [IU] by subcutaneous injection once daily at bedtime Insulin Glargine (Lantus U-100 Insulin) 100 unit/mL Solution Discontinued 38 UNIT SUBCUT Daily at bedtime January 06, 2018 12:00am December 15, 2023 11:46am Start: 01-06-2018 inject 38 [IU] by nash [...] Daily at bedtime January 06, 2018 12:00am oxyCODONE hydrochloride 5 mg oral tablet (14 sources) Opioid Agonist Start: 11-17-2018 End: 11-22-2018 take 5 mg by mouth every four hours Oxycodone Discontinued 5 MG PO Every 4 hours 30 5 November 17, 2018 November 22, 2018 1:02am predniSONE 20 mg oral tablet (7 sources) Start: 10-18-2021 take 1 tablet by mouth every twenty-four hours predniSONE 20 MG 1 tablet Orally Once a day for 5 DAYS Oct, Not-Taking rivaroxaban 20 mg oral tablet (16 sources) Factor Xa Inhibitor Start: 10-29-2020 End: 09-17-2022 take 1 tablet by mouth once daily at dinner Rivaroxaban (Xarelto) 20 mg tablet Discontinued 20 MG PO Every evening 30 October 29, 2020 1:00am July 17, 2021 8:38am must administer with evening meal sulfamethoxazole 800 mg / trimethoprim 160 mg oral tablet (20 sources) Dihydrofolate Reductase Inhibitor Antibacterial, Sulfonamide Antimicrobial Start: 10-21-2019 End: 11-04-2019 take 1 tablet by mouth twice daily Sulfamethoxazole- Trimethoprim (Bactrim Ds) 800-160 mg tablet Discontinued 1 TAB PO Twice daily October 21, 2019 1:00am November 04, 2019 10:25am Start: 12-09-2018 End: 12-23-2018 take 1 tablet by mouth twice daily Sulfamethoxazole-Trimethoprim (Bactrim D s) 800-160 mg tablet Discontinued 1 TAB PO Twice daily December 09, 2018 1:00am December 23, 2018 12:02am Start: 05-31-2018 End: 06-14-2018 take 1 tablet by mouth twice daily Sulfamethoxazole-Trimethoprim (Bactrim D s) 800-160 mg tablet Discontinued 1 TAB PO Twice daily May 31, 2018 12:00am June 14, 2018 12:01am SUPARTZ FX SODIUM HYALURONAT E (20 sources) [...] FX SOD IUM HYALURONATE Jan, 25 mg triamcinolone acetonide 1 mg/ml topical cream (20 sources) Corticosteroid Start: 02-11-2024 End: 05-26-2024 Triamcinolone Acetonide Discontinued APPLIC TOPICAL February 11, 2024 12:00am May 26, 2024 2:00pm Start: 05-21-2016 Start: 05-21-2016 KENALOG - 10 m g May, 1 cc Vitamin B Complex (20 sources) Start: 12-15-2023 End: 01-20-2024 take 1 tablet by mouth once daily vitamin B complex Discontinued 1 TAB PO Daily December 15, 2023 1:00am January 20, 2024 9:28am take 1 tablet by mouth once job y Vitamin B Complex - 1 tablet Orally Once Daily Active Vitamin E (6 sources) Start: 12-15-2023 End: 06-28-2024 take 1 tablet by mouth once daily vitamin E (dl, acetate) Discontinued 1 TAB PO Daily December 15, 2023 1:00am June 28, 2024 9:59am Start: 12-15-2023 take 1 tablet by mouth once da kanwal vitamin E (dl, acetate) Active 1 TAB PO Daily December 15, 2023 1:00am Problems Active Problems Problem Classification Problem Date Documented Da te Episodic/Chronic Administrative/social admission (20 sources) Dietary counseling and surveillance; Translations: [Patient encounter status] Onset: 09-10-2021 Resolved: 04-09-2022 Episodic Cancer of uterus (20 sources) Malignant neoplasm of uterus; Translations: [Malignant neoplasm of uterus, part unspecified] Onset: 12-15-2015 Chronic Chronic ulcer of skin (20 sources) Ulcer; Translations: [Non-pressure chronic ulcer of skin of other sites with unspecified severity] Onset: 06-21-2024 05-25-2019 Chronic Diabetes mellitus with complications (20 sources) Disorder of nervous system due to type 2 diabetes mellitus; Translations: [Type 2 diabetes mellitus with other diabetic neurological complication] Onset: 09-10-2021 Resolved: 12-18-2021 Chronic Diabetes mellitus without complication (20 sources) Type 2 diabetes mellitus; Translations: [Type 2 diabetes mellitus without complications] Onset: 12-15-2015 Resolved: 04-09-2022 Chronic Diabetes mellitus without complication (14 sources) Steroid-induced hyperglycemia; Translations: [Hyperglycemia, unspecified] 10-29-2020 Episodic 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; 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 Disorders of lipid metabolism (20 sources) Hyperlipidemia; Translations: [Hyperlipidemia, unspecified] Onset: 12-21-2015 Resolved: 04-09-2022 Chronic Essential hypertension (20 sources) Hypertensive disorder; Translations: [Essential (primary) hypertension] Onset: 09-10-2021 Resolved: 04-09-2022 Chronic Lymphadenitis (1 source) Lymphadenopathy; Translations: [Enlarged lymph nodes, unspecified] 06-01-2024 Episodic Mycoses (17 sources) Tinea cruris; Translations: [Tinea cruris] 04-20-2023 Episodic Nutritional deficiencies (20 sources) Vitamin D deficiency; Translations: [Vitamin D deficiency, unspecified] Onset: 09-23-2021 Resolved: 09-23-2021 Chronic Nutritional deficiencies (20 sources) Vitamin B12 deficiency (non anemic); Translations: [Deficiency of other specified B group vitamins] Onset: 09-10-2021 Resolved: 04-09-2022 Episodic Open wounds of head; neck; and trunk (12 sources) Wound abscess; Translations: [Wound abscess] 02-10-2018 Episodic Osteoarthritis (20 sources) Osteoarthritis of knee; Translations: [Osteoarthritis of knee, unspecified] Chronic Other aftercare (20 sources) Long-term current use of insulin; Translations: [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] Episodic Other aftercare (3 sources) History of malignant neoplasm of endometrium; Translations: [Encounter for follow-up examination after completed treatment for malignant neoplasm] Episodic Other and unspecified benign neoplasm (1 source) Benign neoplastic disease; Translations: [Benign neoplasm, unspecified site] 02-17-2024 Episodic Other circulatory disease (19 sources) Elevated blood pressure; Translations: [Elevated blood-pressure reading, without diagnosis of hypertension] Episodic Other connective tissue disease (1 source) History of repair of hip joint; Translations: [Presence of right artificial hip joint] Chronic Other connective tissue disease (19 sources) History of total hip arthroplasty; Translations: [Presence of right artificial hip joint] Chronic Other diseases of veins and lymphatics (14 sources) Lymphedema of bilateral lower limbs; Translations: [Lymphedema, not elsewhere classified] 05-25-2019 Chronic Other diseases of veins and lymphatics (10 sources) Lymphedema, not elsewhere classified; Translations: [Other lymphedema] 03-30-2023 Chronic Other diseases of veins and lymphatics (19 sources) Peripheral venous insufficiency; Translations: [Venous insufficiency (chronic) (peripheral)] Episodic Other diseases of veins and lymphatics (12 sources) Venous insufficiency of leg; Translations: [Other specified disorders of veins] 12-07-2018 Episodic Other diseases of veins and lymphatics (10 sources) Other specified disorders of veins; Translations: [Venous (peripheral) insufficiency, unspecified] 03-30-2023 Episodic Other diseases of veins and lymphatics (1 source) Vascular insufficiency; Translations: [Venous insufficiency (chronic) (peripheral)] Episodic Other infections; including parasitic (12 sources) Disorder due to infection; Translations: [Unspecified infectious disease] 11-09-2019 Episodic Other injuries and conditions due to external causes (6 sources) Local infection of wound; Translations: [Other injury of unspecified body region, initial encounter] 02-11-2024 Episodic Other injuries and conditions due to external causes (4 sources) Other injury of unspecified body region, initial encounter; Translations: [Posttraumatic wound infection not elsewhere classified] 03-08-2024 Episodic Other lower respiratory disease (20 sources) Multiple nodules of lung; Translations: [Other nonspecific abnormal finding of lung field] Episodic Other lower respiratory disease (14 sources) Hypoxia; Translations: [Hypoxemia] 10-22-2020 Episodic Other lower respiratory disease (10 sources) Solitary nodule of lung; Translations: [Solitary pulmonary nodule] Episodic Other lower respiratory disease (1 source) Solitary pulmonary nodule Episodic Other lower respiratory disease (2 sources) Nodule of lung; Translations: [Solitary pulmonary nodule] 03-09-2024 Episodic Other lower respiratory disease (4 sources) Other nonspecific abnormal finding of lung field; Translations: [Other nonspecific abnormal finding of lung field] Onset: 11-04-2023 05-30-2024 Episodic Other non-traumatic joint disorders (19 sources) Joint pain; Translations: [Pain in unspecified joint] Episodic Other nutritional; endocrine; and metabolic disorders (20 sources) Morbid obesity; Translations: [Morbid (severe) obesity due to excess calories] Onset: 12-21-2015 12-21-2015 Chronic Other nutritional; endocrine; and metabolic disorders (20 sources) Body mass index 40+ - severely obese; Translations: [Body mass index (BMI) 40.0-44.9, adult] Onset: 03-29-2024 10-22-2020 Chronic Other nutritional; endocrine; and metabolic disorders (8 sources) Body mass index (BMI) 45.0-49.9, adult; Translations: [Body Mass Index 45.0-49.9, adult] Onset: 09-10-2021 Resolved: 04-09-2022 Chronic Other nutritional; endocrine; and metabolic disorders (12 sources) Obesity; Translations: [Obesity, unspecified] 05-25-2019 Chronic Other nutritional; endocrine; and metabolic disorders (10 sources) Obesity, unspecified; Translations: [Obesity, unspecified] 03-30-2023 Chronic Other nutritional; endocrine; and metabolic disorders (4 sources) Morbid (severe) obesity due to excess calories; Translations: [Morbid obesity] 02-11-2024 Chronic Other nutritional; endocrine; and metabolic disorders (2 sources) Body mass index (BMI) 40.0-44.9, adult; Translations: [Body Mass Index 40.0-44.9, adult] 03-22-2024 Chronic Other screening for suspected conditions (not mental disorders or infectious disease) (20 sources) Patient encounter status; Translations: [Encounter for screening for malignant neoplasm of colon] Onset: 09-23-2021 Resolved: 09-23-2021 Episodic Other skin disorders (14 sources) 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; Translations: [Other specified disorders of pigmentation] 07-17-2021 Episodic Other skin disorders (10 sources) Other specified disorders of pigmentation; Translations: [Dyschromia, unspecified] 03-30-2023 Episodic Other skin disorders (2 sources) Disorder of the skin and subcutaneous tissue, unspecified Episodic Pancreatic disorders (not diabetes) (11 sources) Cyst of pancreas; Translations: [Cyst of pancreas] Episodic Phlebitis; thrombophlebitis and thromboembolism (20 sources) H/O: Deep vein thrombosis; Translations: [Personal history of other venous thrombosis and embolism] Onset: 09-23-2021 Resolved: 09-23-2021 Episodic Residual codes; unclassified (12 sources) Edema of lower extremity; Translations: [Localized edema] 12-07-2018 Episodic Residual codes; unclassified (12 sources) Edema; Translations: [Edema, unspecified] 05-25-2019 Episodic Residual codes; unclassified (1 source) Family history of malignant neoplasm of pancreas; Translations: [Family history of malignant neoplasm of digestive organs] Episodic Residual codes; unclassified (10 sources) Edema, unspecified; Translations: [Edema] 03-30-2023 Episodic Respiratory failure; insufficiency; arrest (adult) (14 sources) Acute respiratory failure; Translations: [Acute respiratory failure with hypoxia] 10-22-2020 Episodic Respiratory failure; insufficiency; arrest (adult) (1 source) Respiratory failure; insufficiency; arrest (adult); Translations: [Venous insufficiency (chronic) (peripheral)] Onset: 09-15-2023 Skin and subcutaneous tissue infections (20 sources) Cellulitis; Translations: [Cellulitis, unspecified] 03-05-2018 Episodic Unclassified (1 source) Encounter for screening mammogram for malignant neoplasm of breast; Translations: [Encounter for screening mammogram for malignant neoplasm of breast] Onset: 07-15-2023 Unclassified (1 source) Non-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 to breakdown of skin; Translations: [Non-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 to breakdown of skin] Onset: 06-29-2023 Varicose veins of lower extremity (20 sources) Varicose veins of lower extremity; Translations: [Asymptomatic varicose veins of unspecified lower extremity] 05-27-2018 Episodic Viral infection (20 sources) COVID-19; Translations: [Pneumonia due to COVID-19 virus] 10-22-2020 Episodic Past or Other Problems Problem Classification Problem Date Documented Date Episodic/Chronic Anal and rectal conditions (1 source) Perianal abscess; Translations: [Anal abscess] Episodic Cancer of uterus (5 sources) H/O: malignant neoplasm; Translations: [Personal history of malignant neoplasm of other parts of uterus] Onset: 03-22-2024 Episodic Other aftercare (8 sources) 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; Translations: [care home (current) use of insulin] Onset: 09-10-2021 Resolved: 04-09-2022 Episodic Other diseases of veins and lymphatics (2 sources) Venous insufficiency (chronic) (peripheral); Translations: [Venous insufficiency (chronic) (peripheral)] Onset: 03-22-2024 Episodic Other non-traumatic joint disorders (1 source) Pain in right hip joint; Translations: [Pain in right hip] Episodic Other upper respiratory disease (1 source) Nasal congestion Onset: 03-25-2022 Resolved: 03-25-2022 Episodic Pulmonary heart disease (20 sources) Pulmonary embolism; Translations: [Other pulmonary embolism without acute cor pulmonale] Onset: 08-07-2017 08-07-2017 Episodic Residual codes; unclassified (2 sources) Family history of diseases of the blood and blood-forming organs and certain disorders involving the immune mechanism; Translations: [Family history of diseases of the blood and blood-forming organs and certain disorders involving the immune mechanism] Onset: 03-22-2024 Episodic Unclassified (1 source) Cough R05.9 Onset: 10-18-2021 Resolved: 10-18-2021 Unclassified (20 sources) Inflammatory disorder; Translations: [Inflammation] 03-25-2023 Results Test Name Value Interpretation Reference Range Facility [facility] 06-01-2024 CNOVS Visit (SP) Office (Ana ARCHIBALD) -- MAGY CASTRO ([id number]) 1955 F Date Time Provider Department 06/01/24 9:00 AM JULES NAVAS During your visit today, we recorded the following information about you: Temperature Pulse Respiration Blood pressure 97.8 degrees 92/minute 18/minute 155/65 Weight 118.1 kg Jules Navas MD 06/01/2024 9:22 AM Signed DATE: 06/01/2024 PROBLEM: lung CT Follow up DIAGNOSIS: stage 1a FIGO 2 [...] present, cervix not involved HNPCC screening negative [place]: negative 2. Chemotherapy with Carboplatin and taxol [...] ASPIRATION Negative for malignant cells. See comment. CT C/A/P-05/26/2024- IMPRESSION: Unchanged scattered pulmonary nodules since 03/03/2024. SUBJECTIVE: Magy reports that she feels well. No new symptoms since last visit 10/2023. Denies bleeding or pain. 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 OBJECTIVE: BP 155/65 Pulse 92 Temp 36.6 ?C (97.8 ?F) (Temporal) Resp 18 Wt 118.1 kg (260 lb 5.8 oz) SpO2 96% BMI 44.69 kg/m? GEN: Comfortable ASSESSMENT: Magy Castro is a 68 year old female w history stage T1a FIGO 2 endometrial cancer, Endometrial cancer +LVI, MMR nl Limited staging 12/2015 ([facility]) HDRB c 04/2016 Chemo x 5 c 06/2016 CT AP reviewed showing unchanged perihepatic and RP lymph nodes compared to 09/2022 Pancreatic cyst: work up with EUS, cytology 02/2023 negative. Followed by GI . Pulmonary nodules Reviewed chest CT 05/26, pulm (more content not included)... Normal [facility] CT CHEST W IVCONon CT CHEST W IVCON * * *Final Report* * * DATE OF EXAM: May 26 2024 9:37AM [facility] 0539 - CT CHEST W IVCON / PROCEDURE REASON: Lung nodules * * * * Physician Interpretation * * * * RESULT: EXAMINATION: CHEST CT WITH CONTRAST CLINICAL HISTORY: Lung nodules Technique: Spiral CT acquisition of the chest from the thoracic inlet to the upper abdomen following IV contrast. MQ: CTCWR_5 Contrast: 50 mL Omnipaque [address] Dose-Length Product: 395 mGy*cm CT Dose Reduction Employed: Automated exposure control (AEC) Comparison: 03/03/2024 and 09/11/2022 RESULT: Lines, tubes, and devices: None. Lung parenchyma and airways: Trachea and central airways are patent. Multiple scattered pulmonary nodules. Index nodules are as follows: * 1.4 cm right lower lobe nodule, unchanged (image 121) * 0.9 cm left lower lobe nodule (image 117), unchanged * 0.6 cm right lower lobe nodule (image 103), unchanged No new suspicious appearing pulmonary nodules. Pleural space: No pleural effusion or pneumothorax. Lower neck, lymph nodes, and mediastinum: No axillary, supraclavicular, mediastinal or hilar lymphadenopathy by CT size criteria. Heart, pericardium, and thoracic vessels: The heart is normal in size. No pericardial effusion. The thoracic aorta and main pulmonary artery are normal in caliber. Atherosclerotic calcifications of the thoracic aorta and coronary arteries. Bones/Soft Tissues: No aggressive osseous lesions. Upper abdomen: Hepatic steatosis. Pasting Machine Operator (topogram) images: Unremarkable. IMPRESSION: Unchanged scattered pulmonary nodules since 03/03/2024. Transcribe Date/Time: May 26 2024 12:51P Dictated by: MARIANA MALIN MD This examination was interpreted and the report reviewed and electronically signed by: MARIANA MALIN MD on May 26 2024 1:09PM EST Thank you for allowing us to participate in the care of your patient. Should there be any questions regarding this interpretation, please call [phone]. If you are unable to reach us at the number above, please feel free to contact [facility] eRadiology at [phone]. [id number] Normal [facility] CT Chest W contrast Dariel IMPRESSION: Unchanged scattered pulmonary nodules since 03/03/2024. Transcribe Date/Time: May 26 2024 12:51P Dictated by: MARIANA MALIN MD This examination was interpreted and the report reviewed and electronically signed by: MARIANA MALIN MD on May 26 2024 1:09PM EST Thank you for allowing us to participate in the care of your patient. Should there be any questions regarding this interpretation, please call [phone]. If you are unable to reach us at the number above, please feel free to contact [facility] eRadiology at [phone]. DIVISION OF RADIOLOGY * * *Final Report* * * DATE OF EXAM: May 26 2024 9:37AM [facility] 0539 - CT CHEST W IVCON / PROCEDURE REASON: Lung nodules * * * * Physician Interpretation * * * * RESULT: EXAMINATION: CHEST CT WITH CONTRAST CLINICAL HISTORY: Lung nodules Technique: Spiral CT acquisition of the chest from the thoracic inlet to the upper abdomen following IV contrast. MQ: CTCWR_5 Contrast: 50 mL Omnipaque [address] Dose-Length Product: 395 mGy*cm CT Dose Reduction Employed: Automated exposure control (AEC) Comparison: 03/03/2024 and 09/11/2022 RESULT: Lines, tubes, and devices: None. Lung parenchyma and airways: Trachea and central airways are patent. Multiple scattered pulmonary nodules. Index nodules are as follows: * 1.4 cm right lower lobe nodule, unchanged (image 121) * 0.9 cm left lower lobe nodule (image 117), unchanged * 0.6 cm right lower lobe nodule (image 103), unchanged No new suspicious appearing pulmonary nodules. Pleural space: No pleural effusion or pneumothorax. Lower neck, lymph nodes, and mediastinum: No axillary, supraclavicular, mediastinal or hilar lymphadenopathy by CT size criteria. Heart, pericardium, and thoracic vessels: The heart is normal in size. No pericardial effusion. The thoracic aorta and main pulmonary artery are normal in caliber. Atherosclerotic calcifications of the thoracic aorta and coronary arteries. Bones/Soft Tissues: No aggressive osseous lesions. Upper abdomen: Hepatic steatosis. Pasting Machine Operator (topogram) images: Unremarkable. DIVISION OF RADIOLOGY Provider, [facility] - 05/26/2024 * * *Final Report* * * DATE OF EXAM: May 26 2024 9:37AM [facility] 0539 - CT CHEST W IVCON / PROCEDURE REASON: Lung nodules * * * * Physician Interpretation * * * * RESULT: EXAMINATION: CHEST CT WITH CONTRAST CLINICAL HISTORY: Lung nodules Technique: Spiral CT acquisition of the chest from the thoracic inlet to the upper abdomen following IV contrast. MQ: CTCWR_5 Contrast: 50 mL Omnipaque [address] Dose-Length Product: 395 mGy*cm CT Dose Reduction Employed: Automated exposure control (AEC) Comparison: 03/03/2024 and 09/11/2022 RESULT: Lines, tubes, and devices: None. Lung parenchyma and airways: Trachea and central airways are patent. Multiple scattered pulmonary nodules. Index nodules are as follows: * 1.4 cm right lower lobe nodule, unchanged (image 121) * 0.9 cm left lower lobe nodule (image 117), unchanged * 0.6 cm right lower lobe nodule (image 103), unchanged No new suspicious appearing pulmonary nodules. Pleural space: No pleural effusion or pneumothorax. Lower neck, lymph nodes, and mediastinum: No axillary, supraclavicular, mediastinal or hilar lymphadenopathy by CT size criteria. Heart, pericardium, and thoracic vessels: The heart is normal in size. No pericardial effusion. The thoracic aorta and main pulmonary artery are normal in caliber. Atherosclerotic calcifications of the thoracic aorta and coronary arteries. Bones/Soft Tissues: No aggressive osseous lesions. Upper abdomen: Hepatic steatosis. Pasting Machine Operator (topogram) images: Unremarkable. IMPRESSION IMPRESSION: Unchanged scattered pulmonary nodules since 03/03/2024. Transcribe Date/Time: May 26 2024 12:51P Dictated by: MARIANA MALIN MD This examination was interpreted and the report reviewed and electronically signed by: MARIANA MALIN MD on May 26 2024 1:09PM EST Thank you for allowing us to participate in the care of your patient. Should there be any questions regarding this interpretation, please call [phone]. If you are unable to reach us at the number above, please feel free to contact [facility] eRadiology at [phone]. [facility] Radiology Study observation (narrative) [facility] CT Chest W contrast IVOrdere d By: Ccf Provider on 05-26-2024 [facility] CREATININE BLDon 04-28-2024 Creatinine [Mass/Vol] 0.63 mg/dL 0.58-0.96 [facility] Comment on above: Order Comment: Sumit keating Type: BLOOD SPECIMENOrdering Facility: [facility] Address: [address] [id number] Performed By: #### C RET1 ####[facility] LABCLIA [id number] [place] [address] Creatinine and Glomerular filtration rate.predicted panel (S/P/Bld) 96 mL/min/1.73m??? Normal >=60 [facility] Comment on above: Order Comment: Spectray keating Type: BLOOD SPECIMENOrdering Facility: [facility] Address: [address] [id number] Result Comment: Zoila mated Glomerular Filtration Rate [...] actual GFR. Performed By: #### C RET1 ####[facility] LABCLIA [id number] [place] [address] No Panel Informationon 04-28 Estimated GFR (CKD-EPI) 96 mL/min/1.73m??? >=60 [facility] Comment on above: Estimated Glomerular Filtration Rate (eGFR) is calculated using the 2020 CKD-EPI creatinine equation. This equation utilizes serum creatinine, sex, and age as parameters. The creatinine assay has traceable calibration to isotope dilution-mass spectrometry. Refer to KDIGO guidelines for clinical interpretation. In patients with unstable renal function, e.g. those with acute kidney injury, the eGFR may not accurately reflect actual GFR. Myesha 04-26-2024 CNPN Telephone (HEMTSA) -- MAGY CASTRO ([id number]) 1955 F Date Time Provider Department 04/26/24 LAVINIA CAMPOVERDE HEMTSA During your visit today, we recorded the following information about you: Lavinia Campoverde RN 04/26/2024 12:16 PM Signed Pt is scheduled for a scan on 05/26. An updated cre is needed prior to scan. Pended order needs signed thanks! Lavinia Campoverde RN Allergies As of Date: 04/26/2024 (No Known Allergies) Date Reviewed: 03/29/2024 Reviewed by: Shirley Carlisle RN - Fully Assessed Primary Visit Diagnosis:Endometrial ca (HCC) [C54.1] Order(s):CREATININE BLD [SQCRET] Order #: [id number] FUTURE Prescriptions as of 04/26/2024 - FIASP FLEXTOUCH U-100 INSULIN 100 unit/mL [...] daily. For Investigational Drug Use Only. PI: Jules Swan, PhD. Take one capsule by mouth daily for 3 months prior to surgery and 3 months after surgery. - enteric contrast (will be provided with radiology test) For CT CHESTABD/PEL W IVCON Routine order Administer, As Directed One Time Only, via Oral, Rectal, both Oral and Rectal, Enteric Tube, Stoma or Indwelling Catheter, Enteric Contrast as designated per enteric contrast guidelines - enteric contrast (will be provided with [...] per MD Problem List As Of Date 04/26/2024 Noted Resolved Type 2 diabetes mellitus without complication (*12/15/2015 Endometrial ca (HCC) [C54.1] 12/15/2015 Mixed hyperlipidemia [E78.2] 12/21/2015 Morbid obesity (HCC) [E66.01] 12/21/2015 Endometrial cancer (HCC) [C54.1] 12/27/2015 Pulmonary embolus (HCC) [I26.99] 08/07/2017 Obesity, Class III, BMI >= 40 [E66.01] 03/29/2024 Encounter Status:Closed by ЮЛИЯ ODOM on 04/26/24 [facility] 04-11-2024 CNPN Telephone (GYNML) -- MAGY CASTRO ([id number]) 1955 F Date Time Provider Department 04/11/24 ЮЛИЯ ODOM GYNML During your visit today, we recorded the following information about you: Юлия Odom, COMPANY MANAGER.COMPUTER ASSISTANT 04/11/2024 12:01 PM Signed Spoke w patient about recommendation to get a repeat CT scan in May (3 months from last one) to follow up on lung nodule given IR unable to safely biopsy at this time. Will also arrange for a follow up w following scans to discuss results and next steps. She prefers to have CT scans and follow ups be completed at [facility]. Patient comfortable w above plan. Allergies As of Date: 04/11/2024 (No Known Allergies) Date Reviewed: 03/29/2024 Reviewed by: Shirley Carlisle, RN - Fully Assessed Primary Visit Diagnosis:Lung nodules [R91.8] Order(s):CT CHEST W IVCON [[id number]] Order #: [id number] FUTURE iv contrast (will be provided with radiology test)CT Chest W -Inject, intravenously, once for 1 dose.No IV access, [...] protocol in the CT contrast administration guidelines link.Disp: 1 EachRfl: 0 Prescriptions as of 04/11/2024 - iv contrast (will be provided with radiology test) CT Chest W -Inject, intravenously, once for 1 dose.No IV access, [...] the CT contrast administration guidelines link. - FIASP FLEXTOUCH U-100 INSULIN 100 unit/mL [...] daily. For Investigational Drug Use Only. PI: Jules Swan, PhD. Take one capsule by mouth daily for 3 months prior to surgery and 3 months after surgery. - enteric contrast (will be provided with radiology test) For CT CHESTABD/PEL W IVCON Routine order Administer, As Directed One Time Only, via Oral, Rectal, both Oral and Rectal, Enteric Tube, Stoma or Indwelling Catheter, Enteric Contrast as designated per enteric contrast guidelines - enteric contrast (will be provided with [...] per MD Problem List As Of Date 04/11/2024 Noted Resolved Type 2 diabetes mellitus without complication (*12/15/2015 Endometrial ca (HCC) [C54.1] 12/15/2015 Mixed hyperlipidemia [E78.2] 12/21/2015 Morbid obesity (HCC) [E66.01] 12/21/2015 Endometrial cancer (HCC) [C54.1] 12/27/2015 Pulmonary embolus (HCC) [I26.99] 08/07/2017 Obesity, Class III, BMI >= 40 [E66.01] 03/29/2024 Prescriptions ordered this encounter Disp Refills Start End IV CONTRAST (RADIOLOGY PROCEDURE) 1 Ea* 0 04/11/2024 04/12/2024 Class: In Office Sig: CT Chest W -Inject, intravenously, once for 1 dose.No IV access, [...] in the CT contrast administration guidelines link. Encounter Status:Closed by ЮЛИЯ ODOM on 04/11/24 [facility] BRIEF OP NOTon 03-29-2024 BRIEF OP NOT HNO ID: [id number] Author: ISAURO COHEN MD Service: ? Author Type: Fellow Type: Brief Op Note Filed: 03/29/2024 10:13 Note Text: BRIEF OPERATIVE / PROCEDURE NOTE LOG ID: [id number] SURGERY/PROCEDURE DATE: 03/29/2024 INCISION/PROCEDURE START TIME: INCISION CLOSE/PROCEDURE END TIME: 10:05 AM SURGEON(S)/PROCEDURALIST(S ) AND MARBLE AND GRANITE POLISHER(S): Surgeon(s) and Role: * Ritesh Randall MD - Primary * Isauro Cohen MD - Resident - Assisting No Additional Staff SURGERY/PROCEDURE(S): CT-guided right lower lobe nodule biopsy attemp ANESTHESIA: Procedural Sedation FINDINGS: Right lower lobe nodule, not safely accessible ESTIMATED BLOOD LOSS: 0 ml SPECIMENS: None COMPLICATIONS: None CLOSURE TECHNIQUE: Primary PRE-OP/PRE-PROCEDURE DIAGNOSIS: Right lower lobe nodule POST-OP/POST-PROCEDURE DIAGNOSIS: Same as Preop SIGNATURE: Isauro Cohen MD PATIENT NAME: Magy Castro DATE: March 29, 2024 TIME: 10:11 AM Normal [facility] CT BIOPSY LUNGon 03-29-2024 CT BIOPSY LUNG * * *Final Report* * * DATE OF EXAM: Mar 29 2024 10:06AM [facility] 2009 - CT BIOPSY LUNG / PROCEDURE REASON: multiple diagnoses * * * * Physician Interpretation * * * * PROCEDURE PERFORMED: CT GUIDED RIGHT LOWER LOBE NODULE BIOPSY ON 03/29/2024 PRE-PROCEDURE DIAGNOSIS: Enlarged lung nodules POST-PROCEDURE DIAGNOSIS: Same with preprocedure INDICATION FOR PROCEDURE: The patient is a 68 years old Female with history of endometrial adenocarcinoma who presents with enlarged lung nodules. STAFF RADIOLOGIST: Ritesh Randall MD [employer]BLE [employer] GRANITE POLISHER(S): Isauro Cohen MD CONSENT: The risks (including bleeding, infection, pneumothorax and nondiagnostic result), benefits, treatment options, potential complications and personnel involved were discussed with the patient. All questions were answered and consent was obtained. The patient indicated willingness to proceed. The staff physician personally verified consent. TIME OUT: A time out was performed immediately prior to procedure start with the nursing, and interventional team, correctly identifying the patient name, date of , procedure, anatomy (including marking of site and side), patient position, procedure consent form, relevant diagnostic and radiology test results, antibiotic administration (when indicated), safety precautions, and procedure-specific equipment needs. RESULT: PROCEDURE: Patient was placed in the prone position on the scanning table. Right lower lobe nodule was localized by CT. Audible time out was performed. Sterile prep/drape. Satisfactory local anesthesia. After several attempts decided that the nodule is not safely accessible, and procedure canceled. The procedure was performed by the: attending radiologist, with an bus assistant. The attending radiologist performed the following procedural activities: Entire procedure ANESTHESIA/SEDATION: None Local anesthesia was achieved utilizing 12 cc 2% percent lidocaine. Vital signs were monitored by the nurse. START TIME/TIMEOUT TIME: 9:56 AM END TIME: 10:05 AM INTRA-SERVICE (SEDATION) TIME: Not applicable. PATIENT MONITORING: I personally supervised and directed an independent trained observer who assisted in monitoring the patient?s level of consciousness and physiological status throughout the procedure. COMPLICATIONS: None SIGN-OUT DISCUSSION: Completed ESTIMATED BLOOD LOSS: None CONTRAST: None CT LUNG BIOPSY RADIATION DOSE: Dose-length product (DLP) = 18 mGy*cm. SPECIMENS: None BIOPSY DEVICE: None IMPRESSION: 1. Enlarged right lower lobe nodule, attempted but deemed not safely accessible. Pleura was not transgressed. Collision Estimator: PSCB Transcribe Date/Time: Mar 29 2024 11:25A Dictated by : ISAURO COHEN MD This examination was interpreted and the report reviewed and electronically signed by: RITESH RANDALL MD on Mar 29 2024 11:40AM EST [id number] Normal [facility] NURSING PROGon 03-29-2024 NURSING PROG HNO ID: [id number] Author: BETZY DUMONT RN Service: ? Author Type: Registered Nurse Type: Nursing Progress Note Filed: 03/30/2024 08:00 Note Text: Completed post procedure phone call. Debbie did not have a biopsy. She is feeling well and has returned to her baseline diet and activity. Debbie denies questions or concerns related to her appointment on 03/29/24. Normal [facility] PT EDon 03-29-2024 PT ED HNO ID: [id number] Author: JETT VACA RN Service: ? Author Type: Registered Nurse Type: Patient Education Filed: 03/29/2024 10:00 Note Text: AMBULATORY PATIENT EDUCATION TOPIC: PROCEDURE: RLL lung nodule biopsy READINESS TO LEARN COGNITIVE ABILITY: Alert and oriented MOTIVATION TO LEARN: Interested FAMILY SUPPORT: High - Very involved in pt care INSTRUCTION PROVIDED TO: Patient PATIENT LEARNS BEST BY: Individual Instruction FACTORS AFFECTING LEARNING: None PHYSICAL LIMITATIONS AFFECTING LEARNING: None LEARNING RESPONSE DIAGNOSIS: lung nodules, hx uterine CA METHOD OF INSTRUCTION: Individual instruction PATIENT / FAMILY RESPONSE: Information received as demonstrated by interest and questions FOLLOW-UP PLAN: Patient instructed to call with any further issues SUPPLEMENTAL MATERIAL: None REFERRAL (RECOMMENDATION): None Electronically Signed By: Jett Vaca RN In Department: HOSP MAIN [id number] Normal [facility] CT ABD/PEL W IVCONon 024 CT ABD/PEL W IVCON * * *Final Report* * * DATE OF EXAM: Mar 25 2024 8:54AM [facility] 0530 - CT ABD/PEL W IVCON / PROCEDURE REASON: multiple diagnoses * * * * Physician Interpretation * * * * RESULT: EXAMINATION: CT ABDOMEN AND PELVIS WITH IV CONTRAST CLINICAL HISTORY: Endometrial cancer. Examination for follow-up. TECHNIQUE: CT of the abdomen and pelvis was performed using standard technique, scanning from just above the dome of the diaphragm to the symphysis pubis. MQ: CTAP_3 Contrast: IV: 150 ml of Omnipaque 300 CT Radiation dose: Integrated Dose-length product (DLP) for this visit = 1502 mGy*cm. CT Dose Reduction Employed: mAs-kVp adjusted based on patient size-age COMPARISON: CT chest 03/03/2024; MRI abdomen 10/23/2022; CT abdomen/pelvis 09/11/2022; 09/16/2021 and 03/26/2021 RESULT: Liver: Normal liver morphology. A 1 cm hypodensity within the right hepatic dome (series 3, image 8) and a 0.4 cm hypodensity within hepatic segment 7 (series 3, image 25) are unchanged and compatible with cysts when correlated to the prior MRI. No suspicious hepatic mass. Biliary: The gallbladder is absent. No biliary ductal dilatation. Spleen: No mass. No splenomegaly. Pancreas: Normal parenchymal enhancement. The pancreatic duct is nondilated. A 1.1 cm cystic structure within the posterior pancreatic body (series 3, image 31) has slightly decreased in size and remains compatible with a branch duct IPMN (previously 1.5 cm). Adrenals: No mass. Kidneys: The kidneys enhance homogeneously. There are bilateral renal parapelvic cysts. Subcentimeter hypodensity within the right renal cortex are unchanged and compatible with cysts when correlated to the prior MRI. GI Tract: The bowel is normal in caliber and without evidence of wall thickening or obstruction. Lymph nodes: Again noted are multiple mildly enlarged retroperitoneal and perihepatic lymph nodes. Clinical Product Specialist measurements are detailed as follows on series 3 and compared to 09/11/2022: -Image 29, gastrohepatic ligament, 1.3 cm in short axis (unchanged) -Image 32, posterior periportal, 1.1 cm (unchanged) -Image 39, jefry hepatis, 1.3 cm (unchanged) -Image 69, left periaortic, 1.1 cm (unchanged) -Image 76, left periaortic more inferiorly, 1.2 cm (unchanged) -Image 85, left common iliac, 1.2 cm (unchanged) -Image 96, right external iliac, 1.2 cm (unchanged) -Image 113, left external iliac, 1.1 cm (unchanged) Additional lymph nodes show similar stability. No enlarging lymph nodes are identified. Mesentery/Peritoneum: No ascites or mass. Retroperitoneum: No mass. Vasculature: - Abdominal aorta and iliac arteries: No aneurysm. - Celiac and SMA: Patent without stenosis. - Portal venous system (SMV, splenic vein, portal vein and branches): Patent. - Hepatic veins: Patent. Pelvis: The rectum and urinary bladder are unremarkable. No pelvic mass or fluid collection. Bones/Soft Tissues: Right hip arthroplasty and associated streak artifact are noted. Degenerative change involves the left hip and lumbar spine. No destructive lytic or blastic osseous abnormality. Unchanged midline anterior abdominal wall hernia containing a nonobstructed loop of small bowel (series 3, image 89). Unchanged fat-containing left lower anterior abdominal wall hernia. Lower thorax: There is mild bibasilar juxtapleural subsegmental atelectasis. There are multiple bibasilar pulmonary nodules, with district sales representative measurements detailed as follows on series 3: -Image 2, medial right lower lobe, 0.6 cm (unchanged since 09/11/2022) -Image 8, right posterolateral lower lobe, 1.3 cm (previously 0.5 cm on 09/11/2022; unchanged since 03/03/2024) -Image 5, left lower lobe, 0.8 cm (unchanged since 09/11/2022) Localizer images: No additional findings. IMPRESSION: 1. Since 09/11/2022, unchanged enlarged perihepatic and retroperitoneal lymph nodes. No progressive abdominopelvic metastatic disease. 2. A 1.3 cm right lower lobe pulmonary nodule has increased in size since 09/11/2022 and is suspicious for neoplasm/metastatic disease (unchanged since the chest CT of 03/03/2024). Transcribe Date/Time: Mar 25 2024 9:49A Dictated by: LIZZY CALDERÓN MD This examination was interpreted and the report reviewed and electronically signed by: LIZZY CALDERÓN MD on Mar 25 2024 10:08AM EST Thank you for allowing us to participate in the care of your patient. Should there be any questions regarding this interpretation, please call [phone]. If you are unable to reach us at the number above, please feel free to contact [facility] eRadiology at [phone]. [id number] Normal [facility] CT Abdomen and Pelvis W cont rast Dariel 03-25-2024 IMPRESSION: 1. Since 09/11/2022, unchanged enlarged perihepatic and retroperitoneal lymph nodes. No progressive abdominopelvic metastatic disease. 2. A 1.3 cm right lower lobe pulmonary nodule has increased in size since 09/11/2022 and is suspicious for neoplasm/metastatic disease (unchanged since the chest CT of 03/03/2024). Transcribe Date/Time: Mar 25 2024 9:49A Dictated by: LIZZY CALDERÓN MD This examination was interpreted and the report reviewed and electronically signed by: LIZZY CALDERÓN MD on Mar 25 2024 10:08AM EST Thank you for allowing us to participate in the care of your patient. Should there be any questions regarding this interpretation, please call [phone]. If you are unable to reach us at the number above, please feel free to contact [facility]Radiology at [phone]. DIVISION OF RADIOLOGY * * *Final Report* * * DATE OF EXAM: Mar 25 2024 8:54AM [facility] 0530 - CT ABD/PEL W IVCON / PROCEDURE REASON: multiple diagnoses * * * * Physician Interpretation * * * * RESULT: EXAMINATION: CT ABDOMEN AND PELVIS WITH IV CONTRAST CLINICAL HISTORY: Endometrial cancer. Examination for follow-up. TECHNIQUE: CT of the abdomen and pelvis was performed using standard technique, scanning from just above the dome of the diaphragm to the symphysis pubis. MQ: CTAP_3 Contrast: IV: 150 ml of Omnipaque 300 CT Radiation dose: Integrated Dose-length product (DLP) for this visit = 1502 mGy*cm. CT Dose Reduction Employed: mAs-kVp adjusted based on patient size-age COMPARISON: CT chest 03/03/2024; MRI abdomen 10/23/2022; CT abdomen/pelvis 09/11/2022; 09/16/2021 and 03/26/2021 RESULT: Liver: Normal liver morphology. A 1 cm hypodensity within the right hepatic dome (series 3, image 8) and a 0.4 cm hypodensity within hepatic segment 7 (series 3, image 25) are unchanged and compatible with cysts when correlated to the prior MRI. No suspicious hepatic mass. Biliary: The gallbladder is absent. No biliary ductal dilatation. Spleen: No mass. No splenomegaly. Pancreas: Normal parenchymal enhancement. The pancreatic duct is nondilated. A 1.1 cm cystic structure within the posterior pancreatic body (series 3, image 31) has slightly decreased in size and remains compatible with a branch duct IPMN (previously 1.5 cm). Adrenals: No mass. Kidneys: The kidneys enhance homogeneously. There are bilateral renal parapelvic cysts. Subcentimeter hypodensity within the right renal cortex are unchanged and compatible with cysts when correlated to the prior MRI. GI Tract: The bowel is normal in caliber and without evidence of wall thickening or obstruction. Lymph nodes: Again noted are multiple mildly enlarged retroperitoneal and perihepatic lymph nodes. Clinical Product Specialist measurements are detailed as follows on series 3 and compared to 09/11/2022: -Image 29, gastrohepatic ligament, 1.3 cm in short axis (unchanged) -Image 32, posterior periportal, 1.1 cm (unchanged) -Image 39, jefry hepatis, 1.3 cm (unchanged) -Image 69, left periaortic, 1.1 cm (unchanged) -Image 76, left periaortic more inferiorly, 1.2 cm (unchanged) -Image 85, left common iliac, 1.2 cm (unchanged) -Image 96, right external iliac, 1.2 cm (unchanged) -Image 113, left external iliac, 1.1 cm (unchanged) Additional lymph nodes show similar stability. No enlarging lymph nodes are identified. Mesentery/Peritoneum: No ascites or mass. Retroperitoneum: No mass. Vasculature: - Abdominal aorta and iliac arteries: No aneurysm. - Celiac and SMA: Patent without stenosis. - Portal venous system (SMV, splenic vein, portal vein and branches): Patent. - Hepatic veins: Patent. Pelvis: The rectum and urinary bladder are unremarkable. No pelvic mass or fluid collection. Bones/Soft Tissues: Right hip arthroplasty and associated streak artifact are noted. Degenerative change involves the left hip and lumbar spine. No destructive lytic or blastic osseous abnormality. Unchanged midline anterior abdominal wall hernia containing a nonobstructed loop of small bowel (series 3, image 89). Unchanged fat-containing left lower anterior abdominal wall hernia. Lower thorax: There is mild bibasilar juxtapleural subsegmental atelectasis. There are multiple bibasilar pulmonary nodules, with district sales representative measurements detailed as follows on series 3: -Image 2, medial right lower lobe, 0.6 cm (unchanged since 09/11/2022) -Image 8, right posterolateral lower lobe, 1.3 cm (previously 0.5 cm on 09/11/2022; unchanged since 03/03/2024) -Image 5, left lower lobe, 0.8 cm (unchanged since 09/11/2022) Localizer images: No additional findings. DIVISION OF RADIOLOGY Provider, [facility] - 03/25/2024 * * *Final Report* * * DATE OF EXAM: Mar 25 2024 8:54AM [facility] 0530 - CT ABD/PEL W IVCON / PROCEDURE REASON: multiple diagnoses * * * * Physician Interpretation * * * * RESULT: EXAMINATION: CT ABDOMEN AND PELVIS WITH IV CONTRAST CLINICAL HISTORY: Endometrial cancer. Examination for follow-up. TECHNIQUE: CT of the abdomen and pelvis was performed using standard technique, scanning from just above the dome of the diaphragm to the symphysis pubis. MQ: CTAP_3 Contrast: IV: 150 ml of Omnipaque 300 CT Radiation dose: Integrated Dose-length product (DLP) for this visit = 1502 mGy*cm. CT Dose Reduction Employed: mAs-kVp adjusted based on patient size-age COMPARISON: CT chest 03/03/2024; MRI abdomen 10/23/2022; CT abdomen/pelvis 09/11/2022; 09/16/2021 and 03/26/2021 RESULT: Liver: Normal liver morphology. A 1 cm hypodensity within the right hepatic dome (series 3, image 8) and a 0.4 cm hypodensity within hepatic segment 7 (series 3, image 25) are unchanged and compatible with cysts when correlated to the prior MRI. No suspicious hepatic mass. Biliary: The gallbladder is absent. No biliary ductal dilatation. Spleen: No mass. No splenomegaly. Pancreas: Normal parenchymal enhancement. The pancreatic duct is nondilated. A 1.1 cm cystic structure within the posterior pancreatic body (series 3, image 31) has slightly decreased in size and remains compatible with a branch duct IPMN (previously 1.5 cm). Adrenals: No mass. Kidneys: The kidneys enhance homogeneously. There are bilateral renal parapelvic cysts. Subcentimeter hypodensity within the right renal cortex are unchanged and compatible with cysts when correlated to the prior MRI. GI Tract: The bowel is normal in caliber and without evidence of wall thickening or obstruction. Lymph nodes: Again noted are multiple mildly enlarged retroperitoneal and perihepatic lymph nodes. Clinical Product Specialist measurements are detailed as follows on series 3 and compared to 09/11/2022: -Image 29, gastrohepatic ligament, 1.3 cm in short axis (unchanged) -Image 32, posterior periportal, 1.1 cm (unchanged) -Image 39, jefry hepatis, 1.3 cm (unchanged) -Image 69, left periaortic, 1.1 cm (unchanged) -Image 76, left periaortic more inferiorly, 1.2 cm (unchanged) -Image 85, left common iliac, 1.2 cm (unchanged) -Image 96, right external iliac, 1.2 cm (unchanged) -Image 113, left external iliac, 1.1 cm (unchanged) Additional lymph nodes show similar stability. No enlarging lymph nodes are identified. Mesentery/Peritoneum: No ascites or mass. Retroperitoneum: No mass. Vasculature: - Abdominal aorta and iliac arteries: No aneurysm. - Celiac and SMA: Patent without stenosis. - Portal venous system (SMV, splenic vein, portal vein and branches): Patent. - Hepatic veins: Patent. Pelvis: The rectum and urinary bladder are unremarkable. No pelvic mass or fluid collection. Bones/Soft Tissues: Right hip arthroplasty and associated streak artifact are noted. Degenerative change involves the left hip and lumbar spine. No destructive lytic or blastic osseous abnormality. Unchanged midline anterior abdominal wall hernia containing a nonobstructed loop of small bowel (series 3, image 89). Unchanged fat-containing left lower anterior abdominal wall hernia. Lower thorax: There is mild bibasilar juxtapleural subsegmental atelectasis. There are multiple bibasilar pulmonary nodules, with district sales representative measurements detailed as follows on series 3: -Image 2, medial right lower lobe, 0.6 cm (unchanged since 09/11/2022) -Image 8, right posterolateral lower lobe, 1.3 cm (previously 0.5 cm on 09/11/2022; unchanged since 03/03/2024) -Image 5, left lower lobe, 0.8 cm (unchanged since 09/11/2022) Localizer images: No additional findings. IMPRESSION IMPRESSION: 1. Since 09/11/2022, unchanged enlarged perihepatic and retroperitoneal lymph nodes. No progressive abdominopelvic metastatic disease. 2. A 1.3 cm right lower lobe pulmonary nodule has increased in size since 09/11/2022 and is suspicious for neoplasm/metastatic disease (unchanged since the chest CT of 03/03/2024). Transcribe Date/Time: Mar 25 2024 9:49A Dictated by: LIZZY CALDERÓN MD This examination was interpreted and the report reviewed and electronically signed by: LIZZY CALDERÓN MD on Mar 25 2024 10:08AM EST Thank you for allowing us to participate in the care of your patient. Should there be any questions regarding this interpretation, please call [phone]. If you are unable to reach us at the number above, please feel free to contact [facility]Radiology at [phone]. [facility] Radiology Study observation (narrative) [facility] CT Abdomen and Pelvis W cont rast IVOrdered By: [facility] Provider on 03-25-2024 [facility] NURSING PROGon 03-23-2024 NURSING PROG HNO ID: [id number] Author: PIERRE SIDDIQUI, MARCEL Service: Nursing Author Type: Registered Nurse Type: Nursing Progress Note Filed: 03/23/2024 10:55 Note Text: Pre-procedure instructions: Contacted patient and confirmed appt. for Lung Biopsy scheduled on 03/29/2024, at [facility]. I will wait while you get a pen and paper, if instructions are not followed your procedure may need to be cancelled or rescheduled. Diet: Do not eat solid food after midnight the night before your procedure. You may have water until your arrival time 0800. Medications: IF ok with your Prescribing Provider: RADIOLOGY RECOMMENDS THESE MEDICATION RESTRICTIONS Metformin, Victoza, and Lantus: Stop Metformin oral hypoglycemic the day of this procedure Hold short acting insulin the day of procedure. Long acting insulin, take ? dose. If on mixed insulin - if BG> than 200 should take half the dose. If BG less < 200- don't take. Medication pumps: Insulin pumps must be removed before entering the procedure room. Do you wear Neulasta Onpro? No If yes, the device must be removed before entering the procedure room. Contrast Dye Prep: Do you have a contrast dye allergy? No Labs: Labs completed on 03/03/2024 and 03/10/2024. Arrival: Please bring your Photo ID and Insurance Card. A general consent may need to be signed. Arrival at 0800 to desk [id number] ([facility]) and check in for your procedure. Propulsion Engineer/Transportation: How will you be arriving for your procedure? Private car. If you will be arriving at [facility] via ambulance or public transportation, please call to discuss. You will need a responsible adult to accompany you to and from the procedure. Your refuse driver is required to stay with you until you are taken into the Procedure room. If you develop any of the following symptoms before your procedure, please call [phone]. Chills, joint pain, rash, sore throat, cough, loss of smell, reddened eyes, vomiting, abdominal pains, diarrhea, loss of taste, severe headache, weakness, bruising or bleeding, fever, muscle pain, shortness of breath Recovery expectations: You can expect to be at the hospital for the majority of the day. Please do not schedule any other appointments the day of your procedure. Special concerns: Do you use CPAP or BPAP? No If you use CPAP or BiPAP, please call to discuss. Written instructions provided to patient via [employer] If you have any questions please call [phone] Normal [facility] Activated partial thrombopla stin time (aPTT) in platelet poor plasma by coagulation aOrdered By: Sherman Larson on 03-22-2024 aPTT Coag (PPP) [Time] 33.3 s 25.1-36.5 [facility] Comment on above: A hematocrit value g reater than 55% may lead to inaccurate results in coagulation testing. Patients having hematocrit values >55% require a special collection tube for coagulation studies. Please contact the laboratory at [phone] for redraw instructions. Coagulation Profileon 2023 aPTT Coag (Bld) [Time] 33.3 s Normal 25.1-36.5 [facility] Comment on above: Order Comment: Reaso n for Exam History of uterine cancer;Venous insufficiency;Family histor Result Comment: A he matocrit value greater than 55% may lead to inaccurate results in coagulation testing. Patients having hematocrit values >55% require a special collection tube for coagulation studies. Please contact the laboratory at [phone] for redraw instructions. PERFORMED BY: [place] [address] PATHOLOGIST COMMUNICATIONS ASSOCIATE LOCO PERRY M.D. Performed By: #### B 12, DEMETRIA #### [address] 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 [Ronda ntifier] in Blood or Tissue by Molecular genetics methodOrdered By: Sherman Larson on 03-22-2024 F5 gene targeted mutation analysis [employer] Nom (Bld/Tiss) See comment Abnormal . 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 See Additional Clinical Information andComments.Additional Clinical Information:Venous thromboembolism is a multifactorial diseaseinfluenced by genetic, environmental, and circumstantialrisk factors. The c.1601G>A (p. [id number]) variant in theF5 gene, commonly referred to as Factor V Leiden, is agenetic risk factor for venous thromboembolism.Heterozygous carriers of this variant have a 6- to 8-foldincreased risk for venous thromboembolism. Individualshomozygous for this variant (ie, with a copy of the varianton each chromosome) have an approximately 80-fold increasedrisk for venous thromboembolism. Individuals who carry ivon c.*97G>A variant in the F2 gene and Factor V Leiden havean approximately 20-fold increased risk for venousthromboembolism. Risks are likely to be even higher in morecomplex genotype combinations involving the F2 c.*97G>Avariant and Factor V Leiden (PMID: [id number]). Additionalrisk factors include but are not limited to: deficiency ofprotein C, protein S, or antithrombin III, age, male sex,personal or family history of deep vein thromboembolism,smoking, surgery, prolonged immobilization, malignantneoplasm, tamoxifen treatment, raloxifene treatment, oralcontraceptive use, hormone replacement therapy, andpregnancy. Management of thrombotic risk and thromboticevents should follow established guidelines and fit theclinical circumstance. This result cannot predict theoccurrence or recurrence of a thrombotic event.Comment:Genetic counseling is recommended to discuss thepotential clinical implications of positive results, aswell as recommendations for testing family members.Genetic Coordinators are available for health careproviders to discuss results at [phone] Details:Variant Analyzed: c.1601G>A (p. [id number]), referred toas Factor V LeidenMethods/Limitations:DNA analysis of the F5 gene (NM_000130.5) was performedby PCR amplification followed by restriction enzymeanalysis. The diagnostic sensitivity is >99%. Results mustbe combined with clinical information for the most accurateinterpretation. Molecular-based testing is highly accurate,but as in any laboratory test, diagnostic errors may occur.False positive or false negative results may occur forreasons that include genetic variants, blood transfusions,bone marrow transplantation, somatic or tissue-specificmosaicism, mislabeled samples, or erroneous representationof family relationships.This test was developed and its performance characteristicsdetermined by [facility]. It has not been cleared orapproved by the Food and Drug Administration.References:Jourdan S, Reny AK, Jin R, Tatiana WW, Igor BOCANEGRA; ACMGProfessional Practice and Guidelines Committee. Addendum:[employer] consensus statement onfactor V Leiden mutation testing. [facility]. 2020Dec 14.doi: 10.1038/i17900-995-74441-t. PMID: 85054569.Ge MANSFIELD. Factor V Leiden Thrombophilia. 1998February 22(Updated 2017Oct 15). In: Lei MP, Latricia HH, Neil RA,et al., editors. James(Moy) (Internet). [place] ([place]):[facility]; 8818-2404. Availablefrom: https://www.ncbi.nlm.nih.gov/books/UVT9342/Kayden S, Reny AK, Stevens X, Kevlin B, Morenita EB, Ashanti P,Jennifer CS; ACMG Laboratory Ink Blender Committee.Venous thromboembolism laboratory testing (factor V Leidenand factor II c.*97G>A), 2018 update: a technical standardof the [employer] and [employer]omics(ACMG). [employer]. 2018 Sep;20(12):5895-7947. doi:10.1038/c57489-282-9697-n. Epub 2017Jul 16. PMID: 90071245. Factor V Leiden Mutationon 0 03-22-2024 Factor V Leiden Abnormal . [facility] Comment on above: Order Comment: Reaso n for Exam History of uterine cancer;Venous insufficiency;Family histor Result Comment: Resu lt: c.1601G>A (p.Rfm783Dbx) - Detected, Heterozygous This result is associated with a 6- to 8-fold increased risk for venous thromboembolism. See Additional Clinical Information and Comments. Additional Clinical Information: Venous thromboembolism is a multifactorial disease influenced by genetic, environmental, and circumstantial risk factors. The c.1601G>A (p. [id number]) variant in the F5 gene, commonly referred to as Factor V Leiden, is a genetic risk factor for venous thromboembolism. Heterozygous carriers of this variant have a 6- to 8-fold increased risk for venous thromboembolism. Individuals homozygous for this variant (ie, with a copy of the variant on each chromosome) have an approximately 80-fold increased risk for venous thromboembolism. Individuals who carry both a c.*97G>A variant in the F2 gene and Factor V Leiden have an approximately 20-fold increased risk for venous thromboembolism. Risks are likely to be even higher in more complex genotype combinations involving the F2 c.*97G>A variant and Factor V Leiden (PMID: 21324325). Additional risk factors include but are not limited to: deficiency of protein C, protein S, or antithrombin III, age, male sex, personal or family history of deep vein thromboembolism, smoking, surgery, prolonged immobilization, malignant neoplasm, tamoxifen treatment, raloxifene treatment, oral contraceptive use, hormone replacement therapy, and . Management of thrombotic risk and thrombotic events should follow established guidelines and fit the clinical circumstance. This result cannot predict the occurrence or recurrence of a thrombotic event. Comment: Genetic counseling is recommended to discuss the potential clinical implications of positive results, as well as recommendations for testing family members. Genetic Coordinators are available for health care providers to discuss results at [phone] Test Details: Variant Analyzed: c.1601G>A (p. Rmm251Wzy), referred to as Factor V Leiden Methods/Limitations: DNA analysis of the F5 gene (NM_000130.5) was performed by PCR amplification followed by restriction enzyme analysis. The diagnostic sensitivity is >99%. Results must be combined with clinical information for the most accurate interpretation. Molecular-based testing is highly accurate, but as in any laboratory test, diagnostic errors may occur. False positive or false negative results may occur for reasons that include genetic variants, blood transfusions, bone marrow transplantation, somatic or tissue-specific mosaicism, mislabeled samples, or erroneous representation of family relationships. This test was developed and its performance characteristics determined by [facility]. It has not been cleared or approved by the Food and Drug Administration. References: Jourdan Sandra, Reny JONES, Jin R, Tatiana WW, Igor JH; ACMG Professional Practice and Guidelines Committee. Addendum: [employer] consensus statement on factor V Leiden mutation testing. [employer]. 2020Dec 14. doi: 10.1038/[id number]-t. PMID: 28808934. Ge MANSFIELD. Factor V Leiden Thrombophilia. 1998February 22 (Updated 2017Oct 15). In: Lei MP, Latricia HH, Neil RA, et al., editors. James(R) (Internet). [place] ([place]): [facility]; 3940-5467. Available from: https://www.ncbi.nlm.nih.gov/books/URC4345/ Kayden Sandra, Reny JONES, Rodney X, Kelvin B, Morenita EB, Ashanti P, Jennifer CS; AC Laboratory Ink Blender Committee. Venous thromboembolism laboratory testing (factor V Leiden and factor II c.*97G>A), 2018 update: a technical standard of the [employer] (ACMG). [facility] [employer]. 2018 Sep;20(12):9338-9232. doi: 10.1038/[id number]-t. Epub 2017Jul 16. PMID: 08877381. Performed By: #### B 12, URMACRERAT #### [address] Reviewed by: Cassidy Shine, PhD Normal . [facility] Comment on above: Order Comment: Reaso n for Exam History of uterine cancer;Venous insufficiency;Family histor Result Comment: Perf ormed at: [facility] [address] [place], [place] [id number] [employer] Systems Administrator: Martine Valente [facility], Phone: [phone] PERFORMED BY: [place] [address] PATHOLOGIST COMMUNICATIONS ASSOCIATE LOCO PERRY M.D. Performed By: #### B 12, URMACRERAT #### [facility] [address] [place] [address] HbA1c HPLC (Bld) [Mass fract ion]on 03-22-2024 HbA1c (Bld) [Mass fraction] 6.9 % [facility] INR in Platelet poor plasma by Coagulation assayOrdered By: Sherman Larson on 03-22-2024 INR Coag (PPP) [Relative time] 1.0 {INR} Normal [facility] Comment on above: INR Therapeutic Rang e A) Pre- and Peroperative OAT started two weeks before surgery. NOT HIP SURGERY: 1.5 - 2.5 HIP SURGERY: 2 - 3B) Primary and secondary prevention of venous THROMBOSIS: 2 - 3C) Active venous thrombosis, pulmonary embolismand prevention of recurrent venous thrombosis: 2 - 3D) Prevention of arterial thromboembolismincluding patients with mechanical heart valves: 3 - 4.5 Order Comment: Reaso n for Exam History of uterine cancer;Venous insufficiency;Family histor Result Comment: INR Therapeutic Range A) Pre- and Peroperative OAT started two weeks before surgery. NOT HIP SURGERY: 1.5 - 2.5 HIP SURGERY: 2 - 3 B) Primary and secondary prevention of venous THROMBOSIS: 2 - 3 C) Active venous thrombosis, pulmonary embolism and prevention of recurrent venous thrombosis: 2 - 3 D) Prevention of arterial thromboembolism including patients with mechanical heart valves: 3 - 4.5 Performed By: #### B 12, URMACRERAT #### [facility] [address] No Panel InformationOrdered By: Sherman Larson on 03-22-2024 Factor V Leiden Interpretation Cassidy shine, phd . [facility] Comment on above: Performed at: [facility] [id number] [place], [place] [id number] Director: Martine Valente [facility], Phone: [phone] No Panel Informationon 03-22 Bedside Glucose 216 [facility] Prothrombin time (PT)Ordered By: Sherman Larson on 03-22-2024 PT Coag (PPP) [Time] 11.6 s Normal 9.0-12.9 [facility] Comment on above: A hematocrit value g reater than 55% may lead to inaccurate results in coagulation testing. Patients having hematocrit values >55% require a special collection tube for coagulation studies. Please contact the laboratory at [phone] for redraw instructions. Order Comment: Reaso n for Exam History of uterine cancer;Venous insufficiency;Family histor Result Comment: A he matocrit value greater than 55% may lead to inaccurate results in coagulation testing. Patients having hematocrit values >55% require a special collection tube for coagulation studies. Please contact the laboratory at [phone] for redraw instructions. Performed By: #### B 12, URMACRERAT #### [facility] [address] Alanine aminotransferase [En zymatic activity/volume] in Serum or PlasmaOrdered By: Sherman Larson on 03-18-2024 ALT [Catalytic activity/Vol] 13 U/L Normal 7-52 [facility] Comment on above: Order Comment: Reaso n for Exam Hyperlipidemia LDL goal <100 Performed By: #### T SH3, [id number], CMP, LIPID, CBC #### [facility] [address] Albumin [Mass/volume] in Ser um or Plasma by Bromocresol green (BCG) dye binding methoOrdered By: Sherman Larson on 03-18-2024 Albumin BCG dye [Mass/Vol] 4.1 g/dL 3.5-5.7 [facility] Alkaline phosphatase [Enzyma tic activity/volume] in Serum or PlasmaOrdered By: Sherman Larson on 03-18-2024 ALP [Catalytic activity/Vol] 57 U/L Normal 34-104 [facility] Comment on above: Order Comment: Reaso n for Exam Hyperlipidemia LDL goal <100 Performed By: #### T SH3, [id number], CMP, LIPID, CBC #### [facility] [address] Aspartate aminotransferase [ Enzymatic activity/volume] in Serum or PlasmaOrdered By: Sherman Larson on 03-18-2024 AST [Catalytic activity/Vol] 12 U/L Low 13-39 [facility] Comment on above: Order Comment: Reaso n for Exam Hyperlipidemia LDL goal <100 Performed By: #### T SH3, [id number], CMP, LIPID, CBC #### [facility] [address] [place] [address] Automated basophil %Ordered By: Sherman Larson on 03-18-2024 Basophils/100 WBC (Bld) 1.2 % Normal . [facility] Comment on above: Order Comment: Reaso n for Exam Hyperlipidemia LDL goal <100 Performed By: #### T SH3, [id number], CMP, LIPID, CBC #### [facility] [address] Automated basophil countOrde red By: Sherman Larson on 03-18-2024 Basophils (Bld) [#/Vol] 0.1 10*3/uL Normal 0.0-0.2 [facility] Comment on above: Order Comment: Reaso n for Exam Hyperlipidemia LDL goal <100 Result Comment: PERF ORMED BY: [place] [address] PATHOLOGIST COMMUNICATIONS ASSOCIATE LOCO PERRY M.D. Performed By: #### T SH3, [id number], CMP, LIPID, CBC #### [facility] [address] Automated blood monocyte cou ntOrdered By: Sherman Larson on 03-18-2024 Monocytes (Bld) [#/Vol] 0.5 10*3/uL Normal 0.0-0.8 [facility] Comment on above: Order Comment: Reaso n for Exam Hyperlipidemia LDL goal <100 Performed By: #### T SH3, [id number], CMP, LIPID, CBC #### [facility] [address] [place] [address] Automated eosinophil %Ordere d By: Sherman Larson on 03-18-2024 Eosinophils/100 WBC (Bld) 2.1 % Normal . [facility] Comment on above: Order Comment: Reaso n for Exam Hyperlipidemia LDL goal <100 Performed By: #### T SH3, [id number], CMP, LIPID, CBC #### [address] Automated eosinophil countOr dered By: Sherman Larson on 03-18-2024 Eosinophils (Bld) [#/Vol] 0.1 10*3/uL Normal 0.0-0.45 [facility] Comment on above: Order Comment: Reaso n for Exam Hyperlipidemia LDL goal <100 Performed By: #### T SH3, [id number], CMP, LIPID, CBC #### [facility] [address] Automated monocyte %Ordered By: Sherman Larson on 03-18-2024 Monocytes/100 WBC (Bld) 6.3 % Normal . [facility] Comment on above: Order Comment: Reaso n for Exam Hyperlipidemia LDL goal <100 Performed By: #### T SH3, [id number], CMP, LIPID, CBC #### [facility] [address] [place] [address] Automated neutrophil %Ordere d By: Sherman Larson on 03-18-2024 Neutrophils/100 WBC (Bld) 69.7 % Normal . [facility] Comment on above: Order Comment: Reaso n for Exam Hyperlipidemia LDL goal <100 Performed By: #### T SH3, [id number], CMP, LIPID, CBC #### [facility] [address] [place] [address] [place] Bilirubin.total [Mass/volume ] in Serum or PlasmaOrdered By: Sherman Larson on 03-18-2024 Bilirubin [Mass/Vol] 0.6 mg/dL Normal 0.3-1.0 [facility] Comment on above: Order Comment: Reaso n for Exam Hyperlipidemia LDL goal <100 Performed By: #### T SH3, [id number], CMP, LIPID, CBC #### [facility] [address] [place] [address] [place] Calcium [Mass/volume] in Ser um or PlasmaOrdered By: Sherman Larson on 03-18-2024 Calcium [Mass/Vol] 9.2 mg/dL Normal 8.6-10.3 [facility] Comment on above: Order Comment: Reaso n for Exam Hyperlipidemia LDL goal <100 Performed By: #### T SH3, [id number], CMP, LIPID, CBC #### [facility] [address] [place] [address] [place] Carbon dioxide, total [Moles /volume] in Serum or PlasmaOrdered By: Sherman Larson on 03-18-2024 CO2 [Moles/Vol] 28.6 mmol/L Normal 21.0-31.0 [facility] Comment on above: Order Comment: Reaso n for Exam Hyperlipidemia LDL goal <100 Performed By: #### T SH3, [id number], CMP, LIPID, CBC #### [facility] [address] [place] [address] [place] Chloride [Moles/volume] in [place] or PlasmaOrdered By: Sherman Larson on 03-18-2024 Chloride [Moles/Vol] 105 mmol/L Normal 98-107 [facility] Comment on above: Order Comment: Reaso n for Exam Hyperlipidemia LDL goal <100 Performed By: #### T SH3, [id number], CMP, LIPID, CBC #### [facility] [address] [place] [id number] [place] Cholesterol [Mass/volume] in Serum or PlasmaOrdered By: Sherman Larson on 03-18-2024 Cholesterol [Mass/Vol] 149 mg/dL Normal 140-200 [facility] Comment on above: Chol less than 200 m g/dl low riskChol 201-239 mg/dl borderline riskChol 240 mg/dl and greater high risk Order Comment: Reaso n for Exam Hyperlipidemia LDL goal <100 Result Comment: Chol less than 200 mg/dl low risk Chol 201-239 mg/dl borderline risk Chol 240 mg/dl and greater high risk Performed By: #### T SH3, [id number], CMP, LIPID, CBC #### [facility] [address] [place] [address] [facility] Cholesterol in LDL Calc [Mas s/Vol]Ordered By: Sherman Larson on 03-18-2024 Cholesterol in LDL [Mass/Vol] 75 mg/dL 0-100 [facility] Comment on above: LDL ATP III CLASSIFI CATIONLDL less than 100 mg/dL OptimalLDL 100-129 mg/dL Near or above optimalLDL 130-159 mg/dL Borderline highLDL 160-189 mg/dL HighLDL greater than 189 mg/dL Very high Cholesterol in VLDL Calc [Ma ss/Vol]Ordered By: Sherman Larson on 03-18-2024 Cholesterol in VLDL [Mass/Vol] 37 mg/dL [facility] Complete Blood Count Auto Di ffon 03-18-2024 Mean Corpuscular HGB Conc 32.7 g/dL Normal 32.0-35.0 [facility] Comment on above: Order Comment: Reaso n for Exam Hyperlipidemia LDL goal <100 Performed By: #### T SH3, [id number], CMP, LIPID, CBC #### [facility] [address] [place] [address] [place] NRBC% 0.1 /100{WBC} Normal 0-0.5 [facility] Comment on above: Order Comment: Reaso n for Exam Hyperlipidemia LDL goal <100 Performed By: #### T SH3, [id number], CMP, LIPID, CBC #### [facility] [address] [place] [address] [facility] Comprehensive Metabolic Pane riaz 03-18-2024 Albumin [Mass/Vol] 4.1 g/dL Normal 3.5-5.7 [facility] Comment on above: Order Comment: Reaso n for Exam Hyperlipidemia LDL goal <100 Performed By: #### T SH3, [id number], CMP, LIPID, CBC #### [facility] [address] [place] [address] [place] GFR/1.73 sq M.predicted MDRD (S/P/Bld) [Vol rate/Area] mL/min/{1.73_m2} Normal [facility] Comment on above: Order Comment: Reaso n for Exam Hyperlipidemia LDL goal <100 Performed By: #### T SH3, [id number], CMP, LIPID, CBC #### [facility] [address] Creatinine [Mass/volume] in Serum or PlasmaOrdered By: Sherman Larson on 03-18-2024 Creatinine [Mass/Vol] 0.65 mg/dL Normal 0.60-1.20 [facility] Comment on above: Order Comment: Reaso n for Exam Hyperlipidemia LDL goal <100 Performed By: #### T SH3, [id number], CMP, LIPID, CBC #### [facility] [address] [place] [address] [place] Creatinine [Mass/volume] in UrineOrdered By: Rosanne Dumont on 03-18-2024 Creatinine (U) [Mass/Vol] 54.00 mg/dL [facility] Comment on above: No reference range e stablished Erythrocyte distribution wid th [Ratio] by Automated countOrdered By: Sherman Larson on 03-18-2024 Erythrocyte distribution width (RBC) [Ratio] 17.5 % High 11.9-15.3 [facility] Comment on above: Order Comment: Reaso n for Exam Hyperlipidemia LDL goal <100 Performed By: #### T SH3, [id number], CMP, LIPID, CBC #### [facility] [address] [place] [address] [place] Erythrocytes [#/volume] in B lood by Automated countOrdered By: Sherman Larson on 03-18-2024 RBC (Bld) [#/Vol] 5.06 10*6/uL High 3.60-5.00 [facility] Comment on above: Order Comment: Reaso n for Exam Hyperlipidemia LDL goal <100 Performed By: #### T SH3, [id number], CMP, LIPID, CBC #### [facility] [address] [place] [address] [place] Glucose [Mass/volume] in Ser um or PlasmaOrdered By: Sherman Larson on 03-18-2024 Glucose [Mass/Vol] 138 mg/dL High 70-100 [facility] Comment on above: ADA recommended refe rence rangeRandom Glucose Reference Range is dependent on time and content of last meal. Glucose of more than 200 mg/dL in a nonstressed, ambulatory subject supports the diagnosis of Diabetes Mellitus. Order Comment: Reaso n for Exam Hyperlipidemia LDL goal <100 Result Comment: [place] om Glucose Reference Range is dependent on time and content of last meal. Glucose of more than 200 mg/dL in a nonstressed, ambulatory subject supports the diagnosis of Diabetes Mellitus. ADA recommended reference range Performed By: #### T SH3, [id number], CMP, LIPID, CBC #### [facility] [address] [place] [address] [place] Hematocrit [Volume Fraction] of Blood by Automated countOrdered By: Sherman Larson on 03-18-2024 Hematocrit (Bld) [Volume fraction] 42.4 % Normal 34.0-46.4 [facility] Comment on above: Order Comment: Reaso n for Exam Hyperlipidemia LDL goal <100 Performed By: #### T SH3, [id number], CMP, LIPID, CBC #### [facility] [address] [place] [address] [place] Hemoglobin [Mass/volume] in BloodOrdered By: Sherman Larson on 03-18-2024 Hemoglobin (Bld) [Mass/Vol] 13.8 g/dL Normal 11.8-15.4 [facility] Comment on above: Order Comment: Reaso n for Exam Hyperlipidemia LDL goal <100 Performed By: #### T SH3, [id number], CMP, LIPID, CBC #### [facility] [address] [place] [address] [place] Leukocytes [#/volume] correc kedar for nucleated erythrocytes in Blood by Automated counOrdered By: Sherman Larson on 03-18-2024 WBC corrected for nucl RBC Auto (Bld) [#/Vol] 7.2 10*3/uL 3.8-11.6 [facility] Leukocytes [#/volume] in Blo od by Automated countOrdered By: Sherman Larson on 03-18-2024 WBC (Bld) [#/Vol] 7.2 10*3/uL Normal 3.8-11.6 [facility] Comment on above: Order Comment: Reaso n for Exam Hyperlipidemia LDL goal <100 Performed By: #### T SH3, [id number], CMP, LIPID, CBC #### [facility] [address] [place] [id number] [facility] Lipid Panelon 03-18-2024 LDL Cholesterol,Calculate d 75 mg/dL Normal 0-100 [facility] Comment on above: Order Comment: Reaso n for Exam Hyperlipidemia LDL goal <100 Result Comment: LDL ATP III CLASSIFICATION LDL less than 100 mg/dL Optimal LDL 100-129 mg/dL Near or above optimal LDL 130-159 mg/dL Borderline high LDL 160-189 mg/dL High LDL greater than 189 mg/dL Very high Performed By: #### T SH3, [id number], CMP, LIPID, CBC #### [facility] [address] Triglyceride w/Reflex 185 mg/dL High 0-149 [facility] Comment on above: Order Comment: Reaso n for Exam Hyperlipidemia LDL goal <100 Result Comment: TRIG ATP III CLASSIFICATION TRIG less than 150 mg/dL Normal TRIG 150-199 mg/dL Borderline high TRIG 200-500 mg/dL High TRIG greater than 500 mg/dL Very high Standard traceable to the Center for Disease Conrtrol and Prevention (CDC) test method. Performed By: #### T SH3, [id number], CMP, LIPID, CBC #### [facility] [address] [place] [id number] [facility] VLDL CHOLESTEROL 37 mg/dL Normal [facility] Comment on above: Order Comment: Reaso n for Exam Hyperlipidemia LDL goal <100 Performed By: #### T SH3, [id number], CMP, LIPID, CBC #### [facility] [address] [place] [address] Lymphocytes [#/volume] in Bl ood by Automated countOrdered By: Sherman Larson on 03-18-2024 Lymphocytes (Bld) [#/Vol] 1.5 10*3/uL Normal 1.00-4.8 [facility] Comment on above: Order Comment: Reaso n for Exam Hyperlipidemia LDL goal <100 Performed By: #### T SH3, [id number], CMP, LIPID, CBC #### [facility] [address] [place] [address] Lymphocytes/100 leukocytes i n Blood by Automated countOrdered By: Sherman Larson on 03-18-2024 Lymphocytes/100 WBC (Bld) 20.7 % Normal . [facility] Comment on above: Order Comment: Reaso n for Exam Hyperlipidemia LDL goal <100 Performed By: #### T SH3, [id number], CMP, LIPID, CBC #### [facility] [address] [place] [address] MCH [Entitic mass] by Automa kedar countOrdered By: Sherman Larson on 03-18-2024 MCH (RBC) [Entitic mass] 27.4 pg Normal 24.7-34.3 [facility] Comment on above: Order Comment: Reaso n for Exam Hyperlipidemia LDL goal <100 Performed By: #### T SH3, [id number], CMP, LIPID, CBC #### [facility] [address] [place] [address] MCHC Auto (RBC) [Mass/Vol]Or dered By: Sherman Larson on 03-18-2024 MCHC (RBC) [Mass/Vol] 32.7 g/dL 32.0-35.0 [facility] MCV [Entitic volume] by Auto mated countOrdered By: Sherman Larson on 03-18-2024 MCV (RBC) [Entitic vol] 83.8 fL Normal 80-100 [facility] Comment on above: Order Comment: Reaso n for Exam Hyperlipidemia LDL goal <100 Performed By: #### T SH3, [id number], CMP, LIPID, CBC #### [facility] [address] [place] [address] MicroAlb Creat Ratio,Uon Creatinine, Urine (Random) 54.00 mg/dL Normal [facility] Comment on above: Result Comment: No r eference range established Performed By: #### B 12, CLAIREMACRET #### [address] Microalbumin/Creatini ne Ratio 13.0 mg/g Normal 0.0-30.0 [facility] Comment on above: Result Comment: 30-3 00 mg/g indicates an increased risk for diabetic nephropathy. Greater than 300 mg/g is consistent with clinical nephropathy. (Am. J. Kidney Disease 1995, 25:107) PERFORMED BY: [place] [address] PATHOLOGIST COMMUNICATIONS ASSOCIATE LOCO PERRY M.D. Performed By: #### B 12, URMACRERAT #### [address] Microalbumin [Mass/volume] i n UrineOrdered By: Rosanne Dumont on 03-18-2024 Albumin DL <= 20 mg/L (U) [Mass/Vol] 0.7 mg/dL Normal 0.0-1.8 [facility] Comment on above: Performed By: #### B 12, CLAIREMACRET #### [address] Neutrophils [#/volume] in Bl ood by Automated countOrdered By: Sherman Larson on 03-18-2024 Neutrophils (Bld) [#/Vol] 5.0 10*3/uL Normal 1.8-7.7 [facility] Comment on above: Order Comment: Reaso n for Exam Hyperlipidemia LDL goal <100 Performed By: #### T SH3, [id number], CMP, LIPID, CBC #### [address] No Panel InformationOrdered By: Sherman Larson on 03-18-2024 Estimated GFR (CKD-EPI) > 60.0 mL/Min [facility] Creatinine Clearance (Chem N/A [facility] Nucleated erythrocytes [Pres ence] in Blood by Automated countOrdered By: Sherman Larson on 03-18-2024 Nucleated RBC Auto Ql (Bld) 0.1 /100{WBC} 0-0.5 [facility] Platelet mean volume [Entiti c volume] in Blood by Automated countOrdered By: Sherman Larson on 03-18-2024 Platelet mean volume (Bld) [Entitic vol] 7.6 fL Normal 6.3-10.7 [facility] Comment on above: Order Comment: Reaso n for Exam Hyperlipidemia LDL goal <100 Performed By: #### T SH3, [id number], CMP, LIPID, CBC #### [facility] [address] [place] [address] [place] Platelets [#/volume] in Bloo d by Automated countOrdered By: Sherman Larson on 03-18-2024 Platelets (Bld) [#/Vol] 285 10*3/uL Normal 150-450 [facility] Comment on above: Order Comment: Reaso n for Exam Hyperlipidemia LDL goal <100 Performed By: #### T SH3, [id number], CMP, LIPID, CBC #### [facility] [address] [place] [address] [place] Potassium [Moles/volume] in Serum or PlasmaOrdered By: Sherman Larson on 03-18-2024 Potassium [Moles/Vol] 4.0 mmol/L Normal 3.5-5.1 [facility] Comment on above: Order Comment: Reaso n for Exam Hyperlipidemia LDL goal <100 Performed By: #### T SH3, [id number], CMP, LIPID, CBC #### [facility] [address] [place] [address] [place] Protein [Mass/volume] in Ser um or PlasmaOrdered By: Sherman Larson on 03-18-2024 Protein [Mass/Vol] 6.9 g/dL Normal 6.4-8.9 [facility] Comment on above: Order Comment: Reaso n for Exam Hyperlipidemia LDL goal <100 Performed By: #### T SH3, [id number], CMP, LIPID, CBC #### [facility] [address] [place] [id number] [place] Serum globulin measurement b y calculation (mass/volume)Ordered By: Sherman Larson on 03-18-2024 Globulin (S) [Mass/Vol] 2.8 g/dL [facility] Comment on above: Order Comment: Reaso n for Exam Hyperlipidemia LDL goal <100 Performed By: #### T SH3, [id number], CMP, LIPID, CBC #### [facility] [address] Serum or plasma albumin/glob ulin mass ratioOrdered By: Sherman Larson on 03-18-2024 Albumin/Globulin [Mass ratio] 1.5 {ratio} [facility] Comment on above: Order Comment: Reaso n for Exam Hyperlipidemia LDL goal <100 Performed By: #### T SH3, [id number], CMP, LIPID, CBC #### [facility] [address] [place] [address] Serum or plasma anion gap de terminationOrdered By: Sherman Larson on 03-18-2024 Anion gap [Moles/Vol] 9.4 mmol/L Normal 6.0-15.0 [facility] Comment on above: Order Comment: Reaso n for Exam Hyperlipidemia LDL goal <100 Performed By: #### T SH3, [id number], CMP, LIPID, CBC #### [facility] [address] [place] [address] Serum or plasma high density lipoprotein (HDL) cholesterol measurementOrdered By: Sherman Larson on 03-18-2024 Cholesterol in HDL [Mass/Vol] 37 mg/dL Normal 23-92 [facility] Comment on above: HDL CHOL ATP-III CLA SSIFICATION Cardiovascular RiskHDL > or equal to 60 mg/dL LOWHDL < 40 mg/dL HIGH Order Comment: Reaso n for Exam Hyperlipidemia LDL goal <100 Result Comment: HDL CHOL ATP-III CLASSIFICATION Cardiovascular Risk HDL > or equal to 60 mg/dL LOW HDL < 40 mg/dL HIGH Performed By: #### T SH3, [id number], CMP, LIPID, CBC #### [facility] [address] Serum or plasma total choles terol/high density lipoprotein (HDL) cholesterol mass ratOrdered By: Sherman Larson on 03-18-2024 Cholesterol.total/Cho lesterol in HDL [Mass ratio] 4.0 {ratio} Normal <5.0 [facility] Comment on above: Order Comment: Reaso n for Exam Hyperlipidemia LDL goal <100 Result Comment: PERF ORMED BY: [place] [address] PATHOLOGIST COMMUNICATIONS ASSOCIATE LOCO PERRY M.D. Performed By: #### T SH3, [id number], CMP, LIPID, CBC #### [facility] [address] Sodium [Moles/volume] in Ser um or PlasmaOrdered By: Sherman Larson on 03-18-2024 Sodium [Moles/Vol] 139 mmol/L Normal 136-145 [facility] Comment on above: Order Comment: Reaso n for Exam Hyperlipidemia LDL goal <100 Performed By: #### T SH3, [id number], CMP, LIPID, CBC #### [facility] [address] [place] [address] Thyrotropin [Units/volume] i n Serum or PlasmaOrdered By: Sherman Larson on 03-18-2024 TSH Qn 1.20 m[IU]/L Normal 0.45-5.33 [facility] Comment on above: Order Comment: Reaso n for Exam Hyperlipidemia LDL goal <100 Reason for Exam Vitamin D deficiency Performed By: #### T SH3, [id number], CMP, LIPID, CBC #### [facility] [address] [place] [address] Triglyceride [Mass/volume] i n Serum or PlasmaOrdered By: Sherman Larson on 03-18-2024 Triglyceride [Mass/Vol] 185 mg/dL High 0-149 [facility] Comment on above: TRIG ATP III CLASSIF ICATIONTRIG less than 150 mg/dL NormalTRIG 150-199 mg/dL Borderline highTRIG 200-500 mg/dL High TRIG greater than 500 mg/dL Very highStandard traceable to the Center for Disease Conrtrol and Prevention (CDC) test method. Urea nitrogen [Mass/volume] in Serum or PlasmaOrdered By: Sherman Larson on 03-18-2024 Urea nitrogen [Mass/Vol] 19 mg/dL Normal 7-25 [facility] Comment on above: Order Comment: Reaso n for Exam Hyperlipidemia LDL goal <100 Performed By: #### T SH3, [id number], CMP, LIPID, CBC #### [facility] [address] Urine microalbumin/creatinin e mass ratioOrdered By: Rosanne Dumont on 03-18-2024 Albumin/Creatinine DL <= 20 mg/L (U) [Mass ratio] 13.0 mg/g 0.0-30.0 [facility] Comment on above: 30-300 mg/g indicate s an increased risk for diabetic nephropathy. Greater than 300 mg/g is consistent with clinical nephropathy. (Am. J. Kidney Disease 1995, 25:107) Vitamin B12 ser/plasOrdered By: Rosanne Dumont on 03-18-2024 Cobalamin (Vitamin B12) [Mass/Vol] 459 pg/mL Normal 180-914 [facility] Comment on above: Result Comment: PERF ORMED BY: [place] [address] PATHOLOGIST COMMUNICATIONS ASSOCIATE LOCO PERRY M.D. Performed By: #### B 12, DEMETRIA #### [address] Vitamin D 25 Hydroxy Totalon 03-18-2024 Vitamin D 25 Hydroxy Total 40.2 ng/mL Normal 30-100 [facility] Comment on above: Order Comment: Reaso n for Exam Hyperlipidemia LDL goal <100 Reason for Exam Vitamin D deficiency Result Comment: SHAYNE MIN D STATUS 25(OH)VITAMIN D RANGE (ng/mL) Deficient <20 Insufficient 20 to <30 Sufficient 30 to 100 Reference: Paul MF,Dionne NC, Sherrill-Kurtis FOX, et al. Evaluation,treatment, and prevention of vitamin D deficiency; an Endocrine Society clinical practice guideline. JCEM. 2010; 96(7):1911-30. PERFORMED BY: [place] [address] PATHOLOGIST COMMUNICATIONS ASSOCIATE LOCO PERRY M.D. Performed By: #### B 12, URMACRERAT #### [facility] [address] Vitamin D+Metabolites [Mass/ volume] in Serum or PlasmaOrdered By: Sherman Larson on 03-18-2024 Vitamin D+Metabolites [Mass/Vol] 40.2 ng/mL 30-100 [facility] Comment on above: VITAMIN D STATUS 25( [place])VITAMIN D RANGE (ng/mL) Deficient <20 Insufficient 20 to <30Sufficient 30 to 100Reference: Paul MF,Dionne COLBERT, Lupe FOX, et al. Evaluation,treatment, and prevention of vitamin D deficiency; an Endocrine Society clinical practice guideline. JCEM. 2010; 96(7):1911-30. CBC panel Auto (Bld)on 03-10 Erythrocyte distribution width (RBC) [Ratio] 16.9 % High 11.5 - 15.0 % [facility] Hematocrit (Bld) [Volume fraction] 45.7 % 36.0 - 46.0 % [facility] Hemoglobin (Bld) [Mass/Vol] 14.3 g/dL 11.5 - 15.5 g/dL [facility] Interpretation and review of laboratory results Abnormal [facility] MCH (RBC) [Entitic mass] 26.7 pg 26.0 - 34.0 pg [facility] MCHC (RBC) [Mass/Vol] 31.3 g/dL 30.5 - 36.0 g/dL [facility] MCV (RBC) [Entitic vol] 85.4 fL 80.0 - 100.0 fL [facility] Nucleated RBC (Bld) [#/Vol] NINF [facility] Platelet mean volume (Bld) [Entitic vol] 8.5 fL Low 9.0 - 12.7 fL [facility] Platelets (Bld) [#/Vol] 279 10*3/uL [facility] RBC (Bld) [#/Vol] 5.35 10*6/uL High 3.90 - 5.20 m/uL [facility] WBC (Bld) [#/Vol] 7.05 10*3/uL [facility] Erythrocyte distribution width (RBC) [Ratio] 16.9 % High 11.5-15.0 [facility] Comment on above: Order Comment: Speci men Type: BLOOD SPECIMENOrdering Facility: [facility] Address: [address] [place] [address] Performed By: #### 5 8410-2 ####[facility] LABCLIA [id number] [place] [address] Hematocrit (Bld) [Volume fraction] 45.7 % Normal 36.0-46.0 [facility] Comment on above: Order Comment: Speci men Type: BLOOD SPECIMENOrdering Facility: [facility] Address: [address] [place] [address] Performed By: #### 5 8410-2 ####[facility] LABCLIA [id number] [place] [address] Hemoglobin (Bld) [Mass/Vol] 14.3 g/dL Normal 11.5-15.5 [facility] Comment on above: Order Comment: Speci men Type: BLOOD SPECIMENOrdering Facility: [facility] Address: [address] [place] [address] Performed By: #### 5 8410-2 ####[facility] LABCLIA [id number] [place] [address] MCH (RBC) [Entitic mass] 26.7 pg Normal 26.0-34.0 [facility] Comment on above: Order Comment: Speci men Type: BLOOD SPECIMENOrdering Facility: [facility] Address: [address] [place] [address] Performed By: #### 5 8410-2 ####[facility] LABCLIA [id number] [place] [address] MCHC (RBC) [Mass/Vol] 31.3 g/dL Normal 30.5-36.0 [facility] Comment on above: Order Comment: Speci men Type: BLOOD SPECIMENOrdering Facility: [facility] Address: [address] [place] [address] Performed By: #### 5 8410-2 ####[facility] LABCLIA [id number] [place] [address] MCV (RBC) [Entitic vol] 85.4 fL Normal 80.0-100.0 [facility] Comment on above: Order Comment: Speci men Type: BLOOD SPECIMENOrdering Facility: [facility] Address: [address] [place] [address] Performed By: #### 5 8410-2 ####[facility] LABCLIA [id number] [place] [address] Nucleated RBC (Bld) [#/Vol] 10*3/uL Normal <0.01 [facility] Comment on above: Order Comment: Speci men Type: BLOOD SPECIMENOrdering Facility: [facility] Address: [address] [place] [address] Performed By: #### 5 8410-2 ####[facility] LABCLIA [id number] [place] [address] Platelet mean volume (Bld) [Entitic vol] 8.5 fL Low 9.0-12.7 [facility] Comment on above: Order Comment: Speci men Type: BLOOD SPECIMENOrdering Facility: [facility] Address: [address] [place] [address] Performed By: #### 5 8410-2 ####[facility] LABCLIA [id number] [place] [address] Platelets (Bld) [#/Vol] 279 10*3/uL Normal 150-400 [facility] Comment on above: Order Comment: Speci men Type: BLOOD SPECIMENOrdering Facility: [facility] Address: [address] [place] [address] Performed By: #### 5 8410-2 ####[facility] LABCLIA [id number] [place] [address] RBC (Bld) [#/Vol] 5.35 10*6/uL High 3.90-5.20 [facility] Comment on above: Order Comment: Speci men Type: BLOOD SPECIMENOrdering Facility: [facility] Address: [address] [place] [address] Performed By: #### 5 8410-2 ####[facility] LABCLIA [id number] [place] [address] WBC (Bld) [#/Vol] 7.05 10*3/uL Normal 3.70-11.00 [facility] Comment on above: Order Comment: Speci men Type: BLOOD SPECIMENOrdering Facility: [facility] Address: [address] [place] [address] Performed By: #### 5 8410-2 ####[facility] LABIA [id number] [place] [address] CREATININE BLDon 03-10-2024 Creatinine [Mass/Vol] 0.69 mg/dL Normal 0.58-0.96 [facility] Comment on above: Order Comment: Speci men Type: BLOOD SPECIMENOrdering Facility: [facility] Address: [address] [place] [address] Performed By: #### C RET1 ####[facility] LABIA [id number] [place] [address] Creatinine and Glomerular filtration rate.predicted panel (S/P/Bld) 93 mL/min/1.73m??? Normal >=60 [facility] Comment on above: Order Comment: Speci men Type: BLOOD SPECIMENOrdering Facility: [facility] Address: [address] [place] [address] Result Comment: Zoila mated Glomerular Filtration Rate [...] actual GFR. Performed By: #### C RET1 ####[facility] LABCLIA [id number] [place] [address] Erythrocyte distribution wid th Auto (RBC) [Ratio]on 03-10-2024 Erythrocyte distribution width (RBC) [Ratio] 16.9 % High 11.5-15.0 [facility] Hematocrit Auto (Bld) [Volum e fraction]on 03-10-2024 Hematocrit (Bld) [Volume fraction] 45.7 % 36.0-46.0 [facility] Hemoglobin [Mass/volume] in Bloodon 03-10-2024 Hemoglobin (Bld) [Mass/Vol] 14.3 g/dL 11.5-15.5 [facility] Laboratory - Chemistry and C hemistry - challengeon 03-10-2024 Creatinine [Mass/Vol] 0.69 mg/dL 0.58-0.96 [facility] Leukocytes [#/volume] correc kedar for nucleated erythrocytes in Blood by Automated counon 03-10-2024 WBC corrected for nucl RBC Auto (Bld) [#/Vol] 7.05 k/uL 3.70-11.00 [facility] MCH Auto (RBC) [Entitic mass ]on 03-10-2024 MCH (RBC) [Entitic mass] 26.7 pg 26.0-34.0 [facility] MCHC Auto (RBC) [Mass/Vol]on 03-10-2024 MCHC (RBC) [Mass/Vol] 31.3 g/dL 30.5-36.0 [facility] MCV Auto (RBC) [Entitic vol] on 03-10-2024 MCV (RBC) [Entitic vol] 85.4 fL 80.0-100.0 [facility] No Panel Informationon 03-10 Estimated GFR (CKD-EPI) 93 mL/min/1.73m??? >=60 [facility] Comment on above: Estimated Glomerular Filtration Rate (eGFR) is calculated using the 2020 CKD-EPI creatinine equation. This equation utilizes serum creatinine, sex, and age as parameters. The creatinine assay has traceable calibration to isotope dilution-mass spectrometry. Refer to KDIGO guidelines for clinical interpretation. In patients with unstable renal function, e.g. those with acute kidney injury, the eGFR may not accurately reflect actual GFR. Nucleated RBC Auto (Bld) [#/ Vol]on 03-10-2024 Nucleated RBC (Bld) [#/Vol] 10*3/uL <0.01 [facility] Platelet mean volume Auto (B ld) [Entitic vol]on 03-10-2024 Platelet mean volume (Bld) [Entitic vol] 8.5 fL Low 9.0-12.7 [facility] Platelets Auto (Bld) [#/Vol] on 03-10-2024 Platelets (Bld) [#/Vol] 279 10*3/uL 150-400 [facility] RBC Auto (Bld) [#/Vol]on RBC (Bld) [#/Vol] 5.35 10*6/uL High 3.90-5.20 [facility] Myesha 03-08-2024 CNPN Telephone (IRRFV) -- MAGY CASTRO ([id number]) 1955 F Date Time Provider Department 03/08/24 ЮЛИЯ ODOM IRR During your visit today, we recorded the following information about you: Jamia White 03/08/2024 8:20 AM Signed RADIOLOGY CALL CENTER INTAKE DATE: 03/08/2024 TIME: 8:17am REQUESTING STAFF: Юлия Odom APRN.[facility] PHONE/PAGER: : [phone] SPECIFICS OF THE REQUEST:Lung BX SPECIAL REQUESTS: TISSUE SAMPLE, LABWORK: N/A IS THIS REQUEST PART OF A RESEARCH PROTOCOL: No MEDICAL DIAGNOSIS: Lung nodules [R91.8] TYPE AND DATE OF THE EXAM THAT IS THE BASIS OF THE REQUEST: CT Date: 03/03/2024 IMAGING: [facility] Note to all persons requesting biopsies: All biopsy requests will be scheduled as quickly as possible, based on the clinical urgency, availability of appointment times, the need to hold anti-thrombolytic therapy (aspirin, blood thinners) and the patient?s schedule, including the need for an available refuse driver. If a percutaneous biopsy or drainage is not felt to be safe or an alternative method for establishing a diagnosis is possible, this will be discussed directly with the requesting physician. MaryBetzy jeffersSAMARIA 03/08/2024 8:45 AM Signed BX. COORDINATOR INFORMATION LAB RESULTS: INR (no units) Date Value 03/03/2024 1.0 No results found for: APTT Platelet Count (k/uL) Date Value 11/25/2017 223 Current Outpatient Medications Medication Sig FIASP FLEXTOUCH [...] daily. For Investigational Drug Use Only. PI: Jules Swan, PhD. Take one capsule by mouth daily for 3 months prior to surgery and 3 months after surgery. enteric contrast (will be provided with radiology test) For CT CHESTABD/PEL W IVCON Routine order Administer, As Directed One Time Only, via Oral, Rectal, both Oral and Rectal, Enteric Tube, Stoma or Indwelling Catheter, Enteric Contrast as designated per enteric contrast guidelines enteric contrast (will be provided with radiology [...] No current facility-administered medications for this visit. ALLERGIES No Known Allergies FILMS SENT TO WORKSTATION: GUIDELINES FOR HOLDING ANTI-PLATELET AND ANTI- COAGULATION THERAPY: none on file NURSE SIGNATURE: Betzy Hernandez LPN DATE: March 08, 2024 TIME: 8:44 AM Beltran Romano MD 03/09/2024 3:07 PM Signed RADIOLOGIST REQUEST / APPROVAL FORM STAFF RADIOLOGIST: Rosalina/Yara PROCEDURE TO BE DONE UNDER: CT PROCEDURE REQUESTED: FNA or core biopsy requested of a pulmonary nodule. There are a few pulmonary nodules. The nodule to biopsy is at the discretion of the radiologist. The likely best target to biopsy is in the right lower lobe. PROCEDURE: Approved TIME SLOT NEEDED: 1 Hour NOTES: This procedure will likely be challenging given the relatively small size of the nodules and their location. Please check CBC prior to the procedure (which I have ordered). An INR was recently obtained. SPECIAL LABS/ PROCESSING: None. Pre-procedure labs: CBC: ordered INR: not needed COVID: not needed SIR Bleeding risk category for this procedure: Percutaneous lung biopsy 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-high risk. Reference from [facility]: [email or web address] /dotNet/documents/?[email or web address] [email or web address] STAFF SIGNATURE: Beltran Romano MD DATE: March 09, 2024 TIME: 3:05 PM HomerCortney 03/16/2024 5:19 PM Signed Spoke to pt and scheduled biopsy for 03/29/24. Allergies As of Date: 03/08/2024 (No Known Allergies) Date Reviewed: 02/17/2024 Reviewed by: Judith Kc MA - Fully Assessed Reason for Visit: Lung bx [Other] Primary Visit Diagnosis:Lung nodule seen on imaging study [R91.1] Order(s):COMPLETE BLOOD COUNT [SQCBC] Order #: [id number] FUTURE Prescriptions as of (more content not included)... Normal [facility] CT CHEST W IVCONon CT CHEST W IVCON * * *Final Report* * * DATE OF EXAM: Mar 03 2024 9:30AM [facility] 0539 - CT CHEST W IVCON / PROCEDURE REASON: Lung nodules * * * * Physician Interpretation * * * * RESULT: EXAMINATION: CHEST CT WITH CONTRAST CLINICAL HISTORY: Lung nodules Technique: Spiral CT acquisition of the chest from the thoracic inlet to the upper abdomen following IV contrast. MQ: [id number] Contrast: 50 mL Omnipaque [address] Dose-Length Product: 428 mGy*cm CT Dose Reduction Employed: Automated exposure control (AEC) Comparison: Chest CT 09/11/2022 RESULT: Lines, tubes, and devices: None. Lung parenchyma and airways: Trachea and central airways are patent. A few enlarging well-circumscribed scattered pulmonary nodules concerning for metastatic disease. Index nodules are as follows: * 1.3 cm right lower lobe nodule (image 134) previously 0.3 cm * 1 cm nodule left lower lobe (image 120) previously 0.8 cm Additional scattered pulmonary nodules are also unchanged. Index nodules are as follows: * 6 mm nodule right lower lobe (image 114) * 3 mm subpleural nodule right lower lobe (image 130) * 3 mm subpleural nodule left upper lobe (image 100) Pleural space: No pleural effusion or pneumothorax. Lower neck, lymph nodes, and mediastinum: No axillary, supraclavicular, mediastinal or hilar lymphadenopathy by CT size criteria. Heart, pericardium, and thoracic vessels: The heart is normal in size. No pericardial effusion. The thoracic aorta and main pulmonary artery are normal in caliber. Atherosclerotic calcifications of the thoracic aorta and coronary arteries. Bones/Soft Tissues: No aggressive osseous lesions. Upper abdomen: Suspected hepatic steatosis. Cholecystectomy. Pasting Machine Operator (topogram) images: Unremarkable. IMPRESSION: Enlargement of a few pulmonary nodules raising the possibility of metastatic disease. Additional pulmonary nodules are unchanged. Transcribe Date/Time: Mar 03 2024 12:51P Dictated by: MARIANA MALIN MD This examination was interpreted and the report reviewed and electronically signed by: MARIANA MALIN MD on Mar 03 2024 1:21PM EST Thank you for allowing us to participate in the care of your patient. Should there be any questions regarding this interpretation, please call [phone]. If you are unable to reach us at the number above, please feel free to contact [facility]Radiology at [phone]. [id number] Normal [facility] CT Chest W contrast Dariel IMPRESSION: Enlargement of a few pulmonary nodules raising the possibility of metastatic disease. Additional pulmonary nodules are unchanged. Transcribe Date/Time: Mar 03 2024 12:51P Dictated by: MARIANA MALIN MD This examination was interpreted and the report reviewed and electronically signed by: MARIANA MALIN MD on Mar 03 2024 1:21PM EST Thank you for allowing us to participate in the care of your patient. Should there be any questions regarding this interpretation, please call [phone]. If you are unable to reach us at the number above, please feel free to contact [facility] eRadiology at [phone]. DIVISION OF RADIOLOGY * * *Final Report* * * DATE OF EXAM: Mar 03 2024 9:30AM [facility] 0539 - CT CHEST W IVCON / PROCEDURE REASON: Lung nodules * * * * Physician Interpretation * * * * RESULT: EXAMINATION: CHEST CT WITH CONTRAST CLINICAL HISTORY: Lung nodules Technique: Spiral CT acquisition of the chest from the thoracic inlet to the upper abdomen following IV contrast. MQ: CTCWR_5 Contrast: 50 mL Omnipaque [address] Dose-Length Product: 428 mGy*cm CT Dose Reduction Employed: Automated exposure control (AEC) Comparison: Chest CT 09/11/2022 RESULT: Lines, tubes, and devices: None. Lung parenchyma and airways: Trachea and central airways are patent. A few enlarging well-circumscribed scattered pulmonary nodules concerning for metastatic disease. Index nodules are as follows: * 1.3 cm right lower lobe nodule (image 134) previously 0.3 cm * 1 cm nodule left lower lobe (image 120) previously 0.8 cm Additional scattered pulmonary nodules are also unchanged. Index nodules are as follows: * 6 mm nodule right lower lobe (image 114) * 3 mm subpleural nodule right lower lobe (image 130) * 3 mm subpleural nodule left upper lobe (image 100) Pleural space: No pleural effusion or pneumothorax. Lower neck, lymph nodes, and mediastinum: No axillary, supraclavicular, mediastinal or hilar lymphadenopathy by CT size criteria. Heart, pericardium, and thoracic vessels: The heart is normal in size. No pericardial effusion. The thoracic aorta and main pulmonary artery are normal in caliber. Atherosclerotic calcifications of the thoracic aorta and coronary arteries. Bones/Soft Tissues: No aggressive osseous lesions. Upper abdomen: Suspected hepatic steatosis. Cholecystectomy. Pasting Machine Operator (topogram) images: Unremarkable. DIVISION OF RADIOLOGY Provider, Sammie Kirill [facility] - 03/03/2024 * * *Final Report* * * DATE OF EXAM: Mar 03 2024 9:30AM [facility] 0539 - CT CHEST W IVCON / PROCEDURE REASON: Lung nodules * * * * Physician Interpretation * * * * RESULT: EXAMINATION: CHEST CT WITH CONTRAST CLINICAL HISTORY: Lung nodules Technique: Spiral CT acquisition of the chest from the thoracic inlet to the upper abdomen following IV contrast. MQ: CTCWR_5 Contrast: 50 mL Omnipaque [address] Dose-Length Product: 428 mGy*cm CT Dose Reduction Employed: Automated exposure control (AEC) Comparison: Chest CT 09/11/2022 RESULT: Lines, tubes, and devices: None. Lung parenchyma and airways: Trachea and central airways are patent. A few enlarging well-circumscribed scattered pulmonary nodules concerning for metastatic disease. Index nodules are as follows: * 1.3 cm right lower lobe nodule (image 134) previously 0.3 cm * 1 cm nodule left lower lobe (image 120) previously 0.8 cm Additional scattered pulmonary nodules are also unchanged. Index nodules are as follows: * 6 mm nodule right lower lobe (image 114) * 3 mm subpleural nodule right lower lobe (image 130) * 3 mm subpleural nodule left upper lobe (image 100) Pleural space: No pleural effusion or pneumothorax. Lower neck, lymph nodes, and mediastinum: No axillary, supraclavicular, mediastinal or hilar lymphadenopathy by CT size criteria. Heart, pericardium, and thoracic vessels: The heart is normal in size. No pericardial effusion. The thoracic aorta and main pulmonary artery are normal in caliber. Atherosclerotic calcifications of the thoracic aorta and coronary arteries. Bones/Soft Tissues: No aggressive osseous lesions. Upper abdomen: Suspected hepatic steatosis. Cholecystectomy. Pasting Machine Operator (topogram) images: Unremarkable. IMPRESSION IMPRESSION: Enlargement of a few pulmonary nodules raising the possibility of metastatic disease. Additional pulmonary nodules are unchanged. Transcribe Date/Time: Mar 03 2024 12:51P Dictated by: MARIANA MALIN MD This examination was interpreted and the report reviewed and electronically signed by: MARIANA MALIN MD on Mar 03 2024 1:21PM EST Thank you for allowing us to participate in the care of your patient. Should there be any questions regarding this interpretation, please call [phone]. If you are unable to reach us at the number above, please feel free to contact [facility] eRadiology at [phone]. [facility] Radiology Study observation (narrative) [facility] CT Chest W contrast IVOrdere d By: [facility] Provider on 03-03-2024 [facility] Comprehensive metabolic 2000 panelOrdered By: Jamel Mayo on 03-03-2024 Albumin [Mass/Vol] 4.3 g/dL 3.9 - 4.9 g/dL [facility] ALP [Catalytic activity/Vol] 72 U/L 34 - 123 U/L [facility] ALT [Catalytic activity/Vol] 16 U/L 7 - 38 U/L [facility] Anion gap [Moles/Vol] 11 mmol/L 9 - 18 mmol/L [facility] AST [Catalytic activity/Vol] 17 U/L 13 - 35 U/L [facility] Bilirubin [Mass/Vol] 0.5 mg/dL 0.2 - 1 .3 mg/dL [facility] Calcium [Mass/Vol] 9.8 mg/dL 8.5 - 10. 2 mg/dL [facility] Chloride [Moles/Vol] 106 mmol/L High 97 - 10 5 mmol/L [facility] CO2 [Moles/Vol] 26 mmol/L 22 - 30 mmol/L [facility] Creatinine [Mass/Vol] 0.69 mg/dL 0.58 - 0.96 mg/dL [facility] GFR/1.73 sq M.predicted among non-blacks MDRD (S/P/Bld) [Vol rate/Area] 93 mL/min/{1.73_m2} - PINF [facility] Comment on above: Estimated Glomerular Filtration Rate (eGFR) is calculated using the 2020 CKD-EPI creatinine equation. This equation utilizes serum creatinine, sex, and age as parameters. The creatinine assay has traceable calibration to isotope dilution-mass spectrometry. Refer to KDIGO guidelines for clinical interpretation. In patients with unstable renal function, e.g. those with acute kidney injury, the eGFR may not accurately reflect actual GFR. Glucose [Mass/Vol] 175 mg/dL High 74 - 99 mg/dL [facility] Comment on above: The [place] Diabete s Association (ADA) provides guidance for cutoff values for fasting glucose and random glucose. The ADA defines fasting as no caloric intake for at least 8 hours. Fasting plasma glucose results between 100 to 125 mg/dL indicate increased risk for diabetes (prediabetes). Fasting plasma glucose results greater than or equal to 126 mg/dL meet the criteria for diagnosis of diabetes. In the absence of unequivocal hyperglycemia, results should be confirmed by repeat testing. In a patient with classic symptoms of hyperglycemia or hyperglycemic crisis, random plasma glucose results greater than or equal to 200 mg/dL meet the criteria for diagnosis of diabetes. Reference: Standards of Medical Care in Diabetes 2016, [place] Diabetes Association. Diabetes Care. 2016.39(Suppl 1). Interpretation and review of laboratory results Abnormal [facility] Potassium [Moles/Vol] 4.2 mmol/L 3.7 - 5.1 mmol/L [facility] Protein [Mass/Vol] 7.8 g/dL 6.3 - 8.0 g/dL [facility] Sodium [Moles/Vol] 143 mmol/L 136 - 144 mmol/L [facility] Urea nitrogen [Mass/Vol] 15 mg/dL 7 - 21 mg/dL [facility] Comprehensive metabolic 2000 panelon 03-03-2024 Albumin [Mass/Vol] 4.3 g/dL Normal 3.9-4.9 [facility] Comment on above: Order Comment: Speci men Type: BLOOD SPECIMENOrdering Facility: [facility] Address: [address] [place] [address] Performed By: #### 2 4323-8 ####[facility] LABCLIA [id number] [place] [address] ALP [Catalytic activity/Vol] 72 U/L Normal 34-123 [facility] Comment on above: Order Comment: Speci men Type: BLOOD SPECIMENOrdering Facility: [facility] Address: [address] [place] [address] Performed By: #### 2 4323-8 ####[facility] LABCLIA [id number] [place] [address] ALT [Catalytic activity/Vol] 16 U/L Normal 7-38 [facility] Comment on above: Order Comment: Speci men Type: BLOOD SPECIMENOrdering Facility: [facility] Address: [address] [place] [address] Performed By: #### 2 4323-8 ####[facility] LABCLIA [id number] [place] [address] Anion gap [Moles/Vol] 11 mmol/L Normal 9-18 [facility] Comment on above: Order Comment: Speci men Type: BLOOD SPECIMENOrdering Facility: [facility] Address: [address] [place] [address] Performed By: #### 2 4323-8 ####[facility] LABCLIA [id number] [place] [address] AST [Catalytic activity/Vol] 17 U/L Normal 13-35 [facility] Comment on above: Order Comment: Speci men Type: BLOOD SPECIMENOrdering Facility: [facility] Address: [address] [place] [address] Performed By: #### 2 4323-8 ####[facility] LABCLIA [id number] [place] [address] Bilirubin [Mass/Vol] 0.5 mg/dL Normal 0.2-1.3 [facility] Comment on above: Order Comment: Speci men Type: BLOOD SPECIMENOrdering Facility: [facility] Address: [address] [place] [address] Performed By: #### 2 4323-8 ####[facility] LABCLIA [id number] [place] [address] Calcium [Mass/Vol] 9.8 mg/dL Normal 8.5-10.2 [facility] Comment on above: Order Comment: Speci men Type: BLOOD SPECIMENOrdering Facility: [facility] Address: [address] [place] [address] Performed By: #### 2 4323-8 ####[facility] LABCLIA [id number] [place] [address] Chloride [Moles/Vol] 106 mmol/L High 97-105 [facility] Comment on above: Order Comment: Speci men Type: BLOOD SPECIMENOrdering Facility: [facility] Address: [address] [place] [address] Performed By: #### 2 4323-8 ####[facility] LABCLIA [id number] [place] [address] CO2 [Moles/Vol] 26 mmol/L Normal 22-30 [facility] Comment on above: Order Comment: Speci men Type: BLOOD SPECIMENOrdering Facility: [facility] Address: [address] [place] [address] Performed By: #### 2 4323-8 ####[facility] LABCLIA [id number] [place] [address] Creatinine [Mass/Vol] 0.69 mg/dL Normal 0.58-0.96 [facility] Comment on above: Order Comment: Speci men Type: BLOOD SPECIMENOrdering Facility: [facility] Address: [address] [place] [address] Performed By: #### 2 4323-8 ####[facility] LABCLIA [id number] [place] [address] Creatinine and Glomerular filtration rate.predicted panel (S/P/Bld) 93 mL/min/1.73m??? Normal >=60 [facility] Comment on above: Order Comment: Speci men Type: BLOOD SPECIMENOrdering Facility: [facility] Address: [address] [place] [address] Result Comment: Zoila mated Glomerular Filtration Rate [...] accurately reflect actual GFR. Performed By: #### 2 4323-8 ####[facility] LABCLIA [id number] [place] [address] Glucose [Mass/Vol] 175 mg/dL High 74-99 [facility] Comment on above: Order Comment: Speci men Type: BLOOD SPECIMENOrdering Facility: [facility] Address: [address] [place], [place] [id number] Result Comment: The [place] Diabetes Association (ADA) provides guidance for cutoff values for fasting glucose and random glucose. The ADA defines fasting as no caloric intake for at least 8 hours. Fasting plasma glucose results between 100 to 125 mg/dL indicate increased risk for diabetes (prediabetes). Fasting plasma glucose results greater than or equal to 126 mg/dL meet the criteria for diagnosis of diabetes. In the absence of unequivocal hyperglycemia, results should be confirmed by repeat testing. In a patient with classic symptoms of hyperglycemia or hyperglycemic crisis, random plasma glucose results greater than or equal to 200 mg/dL meet the criteria for diagnosis of diabetes. Reference: Standards of Medical Care in Diabetes 2016, [place] Diabetes Association. Diabetes Care. 2016.39(Suppl 1). Performed By: #### 2 4323-8 ####[facility] LABCLIA [id number] [place] [address] Potassium [Moles/Vol] 4.2 mmol/L Normal 3.7-5.1 [facility] Comment on above: Order Comment: Lupei zuri Type: BLOOD SPECIMENOrdering Facility: [facility] Address: [address] [place] [address] Performed By: #### 2 4323-8 ####[facility] LABCLIA [id number] [place] [address] Protein [Mass/Vol] 7.8 g/dL Normal 6.3-8.0 [facility] Comment on above: Order Comment: Sumit zuri Type: BLOOD SPECIMENOrdering Facility: [facility] Address: [address] [place] [address] Performed By: #### 2 4323-8 ####[facility] LABCLIA [id number] [place] [address] Sodium [Moles/Vol] 143 mmol/L Normal 136-144 [facility] Comment on above: Order Comment: Speci men Type: BLOOD SPECIMENOrdering Facility: [facility] Address: [address] [place], [place] [address] Performed By: #### 2 4323-8 ####[facility] LABCLIA [id number] [place] [address] Urea nitrogen [Mass/Vol] 15 mg/dL Normal 7-21 [facility] Comment on above: Order Comment: Speci men Type: BLOOD SPECIMENOrdering Facility: [facility] Address: [address] [place] [address] Performed By: #### 2 4323-8 ####[facility] LABCLIA [id number] [place] [address] INR in Platelet poor plasma by Coagulation assayon 03-03-2024 INR Coag (PPP) [Relative time] 1.0 {INR} 0.9-1.3 [facility] Comment on above: Vitamin K Antagonist (VKA) Therapeutic Range: INR 2 to 3 (Target INR of 2.5)Note: For patients treated with VKA drugs, such as warfarin, the [place] [employer]icians 2012 Guideline recommends a therapeutic INR range of 2 to 3 (target INR of 2.5). This recommendation includes high-risk patients with antiphospholipid syndrome with previous arterial or venous thromboembolism, current-generation mechanical or bioprosthetic aortic heart valve replacement.Note: Patients with mechanical aortic valve replacement and additional risk factors for thromboembolic events (atrial fibrillation, previous thromboembolism, LV dysfunction, hypercoagulable conditions) or an older generation mechanical AVR (i.e., ball in-Cage) or any mechanical MVR should have a INR therapeutic range of 2.5 to 3.5 (target INR of 3).Tamika GOMEZ, et al. Chest 2012, 141:7S-47SNishjessica RA, et al. JACC 2017, 70: 252-289 Laboratory - Chemistry and C hemistry - challengeon 03-03-2024 Albumin [Mass/Vol] 4.3 g/dL 3.9-4.9 [facility] ALP [Catalytic activity/Vol] 72 U/L 34-123 [facility] ALT [Catalytic activity/Vol] 16 U/L 7-38 [facility] AST [Catalytic activity/Vol] 17 U/L 13-35 [facility] Bilirubin [Mass/Vol] 0.5 mg/dL 0.2-1.3 [facility] Calcium [Mass/Vol] 9.8 mg/dL 8.5-10.2 [facility] Chloride [Moles/Vol] 106 mmol/L High 97-105 [facility] CO2 [Moles/Vol] 26 mmol/L 22-30 [facility] Creatinine [Mass/Vol] 0.69 mg/dL 0.58-0.96 [facility] Glucose [Mass/Vol] 175 mg/dL High 74-99 [facility] Comment on above: The [place] Diabete s Association (ADA) provides guidance for cutoff values for fasting glucose and random glucose. The ADA defines fasting as no caloric intake for at least 8 hours. Fasting plasma glucose results between 100 to 125 mg/dL indicate increased risk for diabetes (prediabetes).Fasting plasma glucose results greater than or equal to 126 mg/dL meet the criteria for diagnosis of diabetes. In the absence of unequivocal hyperglycemia, results should be confirmed by repeat testing. In a patient with classic symptoms of hyperglycemia or hyperglycemic crisis, random plasma glucose results greater than or equal to 200 mg/dL meet the criteria for diagnosis of diabetes.Reference: Standards of Medical Care in Diabetes 2016, [place] Diabetes Association. Diabetes Care. 2016.39(Suppl 1). Potassium [Moles/Vol] 4.2 mmol/L 3.7-5.1 [facility] Sodium [Moles/Vol] 143 mmol/L 136-144 [facility] Urea nitrogen [Mass/Vol] 15 mg/dL 7-21 [facility] No Panel Informationon 03-03 Estimated GFR (CKD-EPI) 93 mL/min/1.73m??? >=60 [facility] Comment on above: Estimated Glomerular Filtration Rate (eGFR) is calculated using the 2020 CKD-EPI creatinine equation. This equation utilizes serum creatinine, sex, and age as parameters. The creatinine assay has traceable calibration to isotope dilution-mass spectrometry. Refer to KDIGO guidelines for clinical interpretation. In patients with unstable renal function, e.g. those with acute kidney injury, the eGFR may not accurately reflect actual GFR. PT panel Coag (PPP)on 2023 INR Coag (PPP) [Relative time] 1.0 {INR} 0.9 - 1.3 [facility] Comment on above: Vitamin K Antagonist (VKA) Therapeutic Range: INR 2 to 3 (Target INR of 2.5) Note: For patients treated with VKA drugs, such as warfarin, the [place] [employer] 2012 Guideline recommends a therapeutic INR range of 2 to 3 (target INR of 2.5). This recommendation includes high-risk patients with antiphospholipid syndrome with previous arterial or venous thromboembolism, current-generation mechanical or bioprosthetic aortic heart valve replacement. Note: Patients with mechanical aortic valve replacement and additional risk factors for thromboembolic events (atrial fibrillation, previous thromboembolism, LV dysfunction, hypercoagulable conditions) or an older generation mechanical AVR (i.e., ball in-Cage) or any mechanical MVR should have a INR therapeutic range of 2.5 to 3.5 (target INR of 3). Tamika GH, et al. Chest 2012, 141:7S-47S Alan RA, et al. [facility] 2017, 70: 252-289 Interpretation and review of laboratory results Normal [facility] PT Coag (PPP) [Time] 11.0 s [facility] INR Coag (PPP) [Relative time] 1.0 {INR} Normal 0.9-1.3 [facility] Comment on above: Order Comment: Speci men Type: BLOOD SPECIMENOrdering Facility: [facility] Address: [address] [place] [address] Result Comment: Shayne min K Antagonist (VKA) Therapeutic Range: INR 2 to 3 (Target INR of 2.5) Note: For patients treated with VKA drugs, such as warfarin, the [place] [employer] 2012 Guideline recommends a therapeutic INR range of 2 to 3 (target INR of 2.5). This recommendation includes high-risk patients with antiphospholipid syndrome with previous arterial or venous thromboembolism, current-generation mechanical or bioprosthetic aortic heart valve replacement. Note: Patients with mechanical aortic valve replacement and additional risk factors for thromboembolic events (atrial fibrillation, previous thromboembolism, LV dysfunction, hypercoagulable conditions) or an older generation mechanical AVR (i.e., ball in-Cage) or any mechanical MVR should have a INR therapeutic range of 2.5 to 3.5 (target INR of 3). Tamika GH, et al. Chest 2012, 141:7S-47S Alan RA, et al. [facility] 2017, 70: 252-289 Performed By: #### 3 4528-0 ####[facility] [id number] [place] [address] [place] PT Coag (PPP) [Time] 11.0 s Normal 9.7-13.0 [facility] Comment on above: Order Comment: Speci men Type: BLOOD SPECIMENOrdering Facility: [facility] Address: [address] [place] [address] Performed By: #### 3 4528-0 ####[facility] [id number] [place] [address] [place] Protein [Mass/volume] in Ser um or Plasmaon 03-03-2024 Protein [Mass/Vol] 7.8 g/dL 6.3-8.0 [facility] Prothrombin time (PT)on 02-10 PT Coag (PPP) [Time] 11.0 s 9.7-13.0 [facility] Serum or plasma anion gap de terminationon 03-03-2024 Anion gap [Moles/Vol] 11 mmol/L 06-29 [facility] CNOVon 02-17-2024 CNOV Office Visit (GASTNO ) -- MAGY CASTRO ([id number]) 1955 F Date Time Provider Department 02/17/24 11:00 AM ALLEY AUGUSTIN During your visit today, we recorded the following information about you: Pulse Blood pressure Weight Height 85/minute 126/78 118.8 kg 1.626 m Alley Augustin PA-C 02/17/2024 12:06 PM Signed DEPARTMENT OF GASTROENTEROLOGY - FOLLOW UP REASON FOR VISIT Magy Castro is a 68 year old female who is scheduled for follow up of pancreatic cyst HISTORY OF PRESENT ILLNESS Magy Castro is a 68 year old female who presents today for follow up of pancreatic cyst. History of endometrial stage II carcinoma. On routine follow up CT scan there was noted to be 1.5x1.0cm cystic lesion in pancreatic body without dilated pancreatic duct. MRCP 10/23/2022 showed 12 x7 x5 mm lobulated cystic mass without mass lesion or pancreatic duct dilatation. EUS was negative for malignancy. Appearance was suspicious for serous cystoadenoma. She currently denies any abdominal pain, jaundice, scleral icterus, nausea, vomiting, unintentional weight loss,, chills, night sweats, change in bowel habit. She has never had a colonoscopy. No BRBPR, melena. Pertinent Workup to Date: EUS 02/2023 - A cystic lesion was seen in [...] MRCP in 1 year based on cytopathology. Pathology negative for malignancy. Suspected serous cystadenoma. Repeat MRCP in one year was recommended. I have personally reviewed labs, current medication, allergies, PMH, PSH, family history and social history. Pertinent information has been listed above. Brother of pancreatic cancer at age 51. Denies Smoking, etoh, illicits, NSAIDs PAST MEDICAL HISTORY Diagnosis Date Diabetes (HCC) Mixed hyperlipidemia 12/21/2015 Morbid obesity (HCC) 12/21/2015 Periumbilical hernia containing loop of small bowel Pulmonary emboli (HCC) right lower lobe Pulmonary nodules bilateral subcentimeter PAST SURGICAL HISTORY Procedure Laterality Date APPENDECTOMY RSO? LAPAROSCOPY SURG CHOLECYSTECTOMY PAST SURGICAL HISTORY OF 11/30/15 DANDC, hysteroscopy TUBAL LIGATION HX Allergies: No Known Allergies Current Outpatient Medications Medication Sig Dispense Refill FIASP FLEXTOUCH U-100 INSULIN 100 unit/mL (3 [...] daily. For Investigational Drug Use Only. PI: Jules Swan, PhD. Take one capsule by mouth [...] contrast administration guidelines link. 1 Each 0 enteric contrast (will be provided with radiology test) For CT CHESTABD/PEL W IVCON Routine order Administer, As Directed One Time Only, via Oral, Rectal, both Oral and Rectal, Enteric Tube, Stoma or Indwelling Catheter, Enteric Contrast as designated per enteric contrast guidelines 1 Each 0 iv contrast (will be provided with radiology [...] contrast administration guidelines link. 1 Each 0 enteric cont (more content not included)... Normal [facility] CNPNon 02-15-2024 CNPN Telephone (HEMTSA) -- MAGY CASTRO ([id number]) 1955 F Date Time Provider Department 02/15/24 ЮЛИЯ ODOM During your visit today, we recorded the following information about you: Mamie Mckenzie RN 02/15/2024 1:24 PM Signed Please sign pended Cre for upcoming CT Thank You! Mamie Mckenzie RN Allergies As of Date: 02/15/2024 (No Known Allergies) Date Reviewed: 11/04/2023 Reviewed by: Gertrude Rowley MA - Fully Assessed Reason for Visit: Orders [681] Primary Visit Diagnosis:Endometrial ca (HCC) [C54.1] Order(s):CREATININE BLD [SQCRET] Order #: [id number] FUTURE Prescriptions as of 02/15/2024 - FIASP FLEXTOUCH U-100 INSULIN 100 unit/mL [...] daily. For Investigational Drug Use Only. PI: Jules Swan, PhD. Take one capsule by mouth [...] per MD Problem List As Of Date 02/15/2024 Noted Resolved Type 2 diabetes mellitus without complication (*12/15/2015 Endometrial ca (HCC) [C54.1] 12/15/2015 Mixed hyperlipidemia [E78.2] 12/21/2015 Morbid obesity (HCC) [E66.01] 12/21/2015 Endometrial cancer (HCC) [C54.1] 12/27/2015 Pulmonary embolus (HCC) [I26.99] 08/07/2017 Encounter Status:Closed by ЮЛИЯ ODOM on 02/15/24 [facility] Aerobic Cultureon 02-04-2024 Aerobic Culture ORGANISM: Klebsiella oxytoca (O:KLEOXY) Quantity of Growth Light Growth ORGANISM: Enterococcus faecalis (O:ENTFAC) Quantity of Growth Light Growth No Anaerobes Isolated 3 Days Gram Stain Result Rare Epithelial Cells Rare White Blood Cells No Bacteria Seen Aerobic KRIS Charge (NMIC56) SUSCEPTIBILITY ORGANISM: O:KLEOXY ANTIBIOTIC INTERPRETATION KRIS Amikacin S <16 Amoxacillin/K Clavulanate S <8 Ampicillin/Sulbactam S 88/4 Aztreonam S <4 Cefazolin R >16 Cefepime S <2 Ceftazidime S <1 Ceftazidime/Avibactam S <4 Ceftolozane/Tazobactam S <2 Ceftriaxone S <1 Cefuroxime S <4 Ciprofloxacin S <0.25 Ertapenem S <0.5 Gentamicin S <2 Levofloxacin S <0.5 Meropenem S <1 Meropenem/Vaborbactam S <2 Piperacillin/Tazobactam S <8 Tetracycline S <4 Tigecycline S <2 Tobramycin S <2 Trimethoprim/Sulfamethoxaz ole S <0.5 Aerobic KRIS Charge (PCMIC38) SUSCEPTIBILITY ORGANISM: O:ENTFAC ANTIBIOTIC INTERPRETATION KRIS Ampicillin S 8 Daptomycin S 1 Linezolid S 2 Vancomycin S 1 S = SUSCEPTIBLE I [...] RESISTANT TO ALL B-LACTAM DRUGS. PERFORMED BY: [place] [address] PATHOLOGIST COMMUNICATIONS ASSOCIATE LOCO PERRY M.D. Normal [facility] Comment on above: Performed By: #### G S, AERC #### [address] Gram Stainon 02-04-2024 Microscopic observation Gram stain Nom (Unsp spec) Gram Stain Result Rare Epithelial Cells Rare White Blood Cells No Bacteria Seen PERFORMED BY: [place] [address] PATHOLOGIST COMMUNICATIONS ASSOCIATE LOCO PERRY M.D. Normal [facility] Comment on above: Performed By: #### G S, AERC #### [address] Gram stain for investigation of transfusion reactionOrdered By: Hien Poole on 02-04-2024 Microscopic observation Gram stain Nom (Unsp spec) Enterococcus faecalis Abnormal [facility] HbA1c HPLC (Bld) [Mass fract ion]on 12-15-2023 HbA1c (Bld) [Mass fraction] 7.8 % [facility] No Panel Informationon 12-14 Bedside Glucose 135 [facility] CNOVSPon 11-04-2023 CNOVSP Visit (SP) Office (G YNML) -- MAGY CASTRO ([id number]) 1955 F Date Time Provider Department 11/04/23 12:45 PM ЮЛИЯ ODOM GYN During your visit today, we recorded the following information about you: Temperature Pulse Respiration Blood pressure 96.8 degrees 69/minute 15/minute 140/73 Юлия Odom APRN.COMPUTER ASSISTANT 11/07/2023 9:54 AM Signed DATE: 11/04/2023 PROBLEM: [...] present, cervix not involved HNPCC screening negative [place]: negative 2. Chemotherapy with Carboplatin and taxol [...] 06/2016 Pancre (more content not included)... Normal [facility] Bacteria identified Aer cx N om (Unsp spec)Ordered By: Judith Benitez on 09-15-2023 Superficial Wound Culture Staphylococcus aureus [facility] Superficial Wound Cultureon 09-15-2023 Superficial Wound Culture LEGS ORGANISM: Enterobacter cloacae complex (O:ENTCLOCPLX) Quantity of Growth Heavy Growth ORGANISM: Staphylococcus aureus (O:STAAUR) Quantity of Growth Moderate Growth Aerobic KRIS Charge (NMIC56) SUSCEPTIBILITY ORGANISM: O:ENTCLOCPLX ANTIBIOTIC INTERPRETATION KRIS Amikacin S <16 Aztreonam IB <4 Cefepime S <2 Ceftazidime IB <1 Ceftriaxone IB <1 Cefuroxime R* 16 Ciprofloxacin S <0.25 Ertapenem S <0.5 Gentamicin S <2 Levofloxacin S <0.5 Meropenem S <1 Meropenem/Vaborbactam S <2 Piperacillin/Tazobactam IB <8 Tetracycline S <4 Tigecycline S <2 Tobramycin S <2 Trimethoprim/Sulfamethoxaz ole S <0.5 Aerobic KRIS Charge (PCMIC38) SUSCEPTIBILITY ORGANISM: O:STAAUR ANTIBIOTIC INTERPRETATION KRIS Azithromycin R >4 Ceftaroline S <0.5 Ciprofloxacin S <1 Clindamycin R 0.5 Daptomycin S <0.5 Levofloxacin S <1 Linezolid S 2 Oxacillin S 0.5 Penicillin VERONIKA >2 Tetracycline S <4 Trimethoprim/Sulfamethoxaz ole S <0.5 Vancomycin S 1 S = [...] RESISTANT TO ALL B-LACTAM DRUGS. PERFORMED BY: [place] [address] PATHOLOGIST COMMUNICATIONS ASSOCIATE LOCO PERRY M.D. Normal [facility] Comment on above: Performed By: #### C USUP #### [place] [id number] [place] A1C HEMOGLOBINon 09-09-2023 HbA1c (Bld) [Mass fraction] 8.3 % [facility] Other Glucose - FINGER STICKon Glucose [Mass/Vol] 175 mg/dL [facility] Other HbA1c (Bld) [Mass fraction]o n 09-09-2023 [facility] mammo BI w/CADo n 07-15-2023 MM screening mammo BI w/CAD [facility] [address] [place] [address] [place], [place] [id number] Mammography Report Signed Patient: Magy Castro MR#: [id number] : 1955 Acct:[id number] Age/Sex: 67 / F ADM Date: 07/15/23 Loc: [place] Room: Type: [facility] Attending Dr: Referral Self Copies to: Sherman [...] Jennifer Yarbrough M.D.07/15/2023 2:50 PM Dictation Location: [facility] Transcribed By: SAL 07/15/23 1450 Dictated By: Jennifer Yarbrough MD 07/15/23 144 Signed By: 07/15/23 1450 Normal [facility] Alanine aminotransferase [En zymatic activity/volume] in Serum or PlasmaOrdered By: Sherman Larson on 03-31-2023 ALT [Catalytic activity/Vol] 17 U/L 7-52 [facility] Albumin [Mass/volume] in Ser um or Plasma by Bromocresol green (BCG) dye binding methoOrdered By: Sherman Larson on 03-31-2023 Albumin BCG dye [Mass/Vol] 4.1 g/dL 3.5-5.7 [facility] Alkaline phosphatase [Enzyma tic activity/volume] in Serum or PlasmaOrdered By: Sherman Larson on 03-31-2023 ALP [Catalytic activity/Vol] 55 U/L 34-104 [facility] Aspartate aminotransferase [ Enzymatic activity/volume] in Serum or PlasmaOrdered By: Sherman Larson on 03-31-2023 AST [Catalytic activity/Vol] 14 U/L 13-39 [facility] Basophils Auto (Bld) [#/Vol] Ordered By: Sherman Larson on 03-31-2023 Basophils (Bld) [#/Vol] 0.0 10*3/uL 0.0-0.2 [facility] Basophils/100 WBC Auto (Bld) Ordered By: Sherman Larson on 03-31-2023 Basophils/100 WBC (Bld) 0.6 % . [facility] Bilirubin.total [Mass/volume ] in Serum or PlasmaOrdered By: Sherman Larson on 03-31-2023 Bilirubin [Mass/Vol] 0.5 mg/dL 0.3-1.0 [facility] Calcium [Mass/volume] in Ser um or PlasmaOrdered By: Sherman Larson on 03-31-2023 Calcium [Mass/Vol] 9.2 mg/dL 8.6-10.3 [facility] Carbon dioxide, total [Moles /volume] in Serum or PlasmaOrdered By: Sherman Larson on 03-31-2023 CO2 [Moles/Vol] 24.9 mmol/L 21.0-31.0 [facility] Chloride [Moles/volume] in [place] or PlasmaOrdered By: Sherman Larson on 03-31-2023 Chloride [Moles/Vol] 103 mmol/L 98-107 [facility] Cholesterol [Mass/volume] in Serum or PlasmaOrdered By: Sherman Larson on 03-31-2023 Cholesterol [Mass/Vol] 144 mg/dL 140-200 [facility] Comment on above: Chol less than 200 m g/dl low riskChol 201-239 mg/dl borderline riskChol 240 mg/dl and greater high risk Cholesterol in LDL Calc [Mas s/Vol]Ordered By: Sherman Larson on 03-31-2023 Cholesterol in LDL [Mass/Vol] 61 mg/dL 0-100 [facility] Comment on above: LDL ATP III CLASSIFI CATIONLDL less than 100 mg/dL OptimalLDL 100-129 mg/dL Near or above optimalLDL 130-159 mg/dL Borderline highLDL 160-189 mg/dL HighLDL greater than 189 mg/dL Very high Cholesterol in VLDL Calc [Ma ss/Vol]Ordered By: Sherman Larson on 03-31-2023 Cholesterol in VLDL [Mass/Vol] 43 mg/dL [facility] Creatinine [Mass/volume] in Serum or PlasmaOrdered By: Sherman Larson on 03-31-2023 Creatinine [Mass/Vol] 0.68 mg/dL 0.60-1.20 [facility] Creatinine [Mass/volume] in UrineOrdered By: Rosanne Dumont on 03-31-2023 Creatinine (U) [Mass/Vol] 70.0 mg/dL 11.0-20.0 [facility] Eosinophils Auto (Bld) [#/Vo l]Ordered By: Sherman Larson on 03-31-2023 Eosinophils (Bld) [#/Vol] 0.1 10*3/uL 0.0-0.45 [facility] Eosinophils/100 WBC Auto (Bl d)Ordered By: Sherman Larson on 03-31-2023 Eosinophils/100 WBC (Bld) 2.0 % . [facility] Erythrocyte distribution wid th Auto (RBC) [Ratio]Ordered By: Sherman Larson on 03-31-2023 Erythrocyte distribution width (RBC) [Ratio] 17.0 % 11.9-15.3 [facility] Globulin Calc (S) [Mass/Vol] Ordered By: Sherman Larson on 03-31-2023 Globulin (S) [Mass/Vol] 3.1 g/dL [facility] Glucose [Mass/volume] in Ser um or PlasmaOrdered By: Sherman Larson on 03-31-2023 Glucose [Mass/Vol] 139 mg/dL 70-100 [facility] Comment on above: ADA recommended refe rence rangeRandom Glucose Reference Range is dependent on time and content of last meal. Glucose of more than 200 mg/dL in a nonstressed, ambulatory subject supports the diagnosis of Diabetes Mellitus. Hematocrit Auto (Bld) [Volum e fraction]Ordered By: Sherman Larson on 03-31-2023 Hematocrit (Bld) [Volume fraction] 43.0 % 34.0-46.4 [facility] Hemoglobin [Mass/volume] in BloodOrdered By: Sherman Larson on 03-31-2023 Hemoglobin (Bld) [Mass/Vol] 13.9 g/dL 11.8-15.4 [facility] Leukocytes [#/volume] correc kedar for nucleated erythrocytes in Blood by Automated counOrdered By: Sherman Larson on 03-31-2023 WBC corrected for nucl RBC Auto (Bld) [#/Vol] 7.2 10*3/uL 3.8-11.6 [facility] Lymphocytes Auto (Bld) [#/Vo l]Ordered By: Sherman Larson on 03-31-2023 Lymphocytes (Bld) [#/Vol] 1.8 10*3/uL 1.00-4.8 [facility] Lymphocytes/100 WBC Auto (Bl d)Ordered By: Sherman Larson on 03-31-2023 Lymphocytes/100 WBC (Bld) 25.6 % . [facility] MCH Auto (RBC) [Entitic mass ]Ordered By: Sherman Larson on 03-31-2023 MCH (RBC) [Entitic mass] 26.9 pg 24.7-34.3 [facility] MCHC Auto (RBC) [Mass/Vol]Or dered By: Sherman Larson on 03-31-2023 MCHC (RBC) [Mass/Vol] 32.4 g/dL 32.0-35.0 [facility] MCV Auto (RBC) [Entitic vol] Ordered By: Sherman Larson on 03-31-2023 MCV (RBC) [Entitic vol] 82.9 fL 80-100 [facility] Microalbumin [Mass/volume] i n UrineOrdered By: Rosanne Dumont on 03-31-2023 Albumin DL <= 20 mg/L (U) [Mass/Vol] 0.9 mg/dL 0.0-1.8 [facility] Monocytes Auto (Bld) [#/Vol] Ordered By: Sherman Larson on 03-31-2023 Monocytes (Bld) [#/Vol] 0.5 10*3/uL 0.0-0.8 [facility] Monocytes/100 WBC Auto (Bld) Ordered By: Sherman Larson on 03-31-2023 Monocytes/100 WBC (Bld) 7.5 % . [facility] Neutrophils Auto (Bld) [#/Vo l]Ordered By: Sherman Larson on 03-31-2023 Neutrophils (Bld) [#/Vol] 4.6 10*3/uL 1.8-7.7 [facility] Neutrophils/100 WBC Auto (Bl d)Ordered By: Sherman Larson on 03-31-2023 Neutrophils/100 WBC (Bld) 64.3 % . [facility] No Panel InformationOrdered By: Sherman Larson on 03-31-2023 Estimated GFR (CKD-EPI) > 60.0 mL/Min [facility] Pharmacy Creatinine Clearance (Chem N/A [facility] Nucleated erythrocytes [Pres ence] in Blood by Automated countOrdered By: Sherman Larson on 03-31-2023 Nucleated RBC Auto Ql (Bld) 0.1 /100{WBC} 0-0.5 [facility] Platelet mean volume Auto (B ld) [Entitic vol]Ordered By: Sherman Larson on 03-31-2023 Platelet mean volume (Bld) [Entitic vol] 7.4 fL 6.3-10.7 [facility] Platelets Auto (Bld) [#/Vol] Ordered By: Sherman Larson on 03-31-2023 Platelets (Bld) [#/Vol] 298 10*3/uL 150-450 [facility] Potassium [Moles/volume] in Serum or PlasmaOrdered By: Sherman Larson on 03-31-2023 Potassium [Moles/Vol] 4.1 mmol/L 3.5-5.1 [facility] Protein [Mass/volume] in Ser um or PlasmaOrdered By: Sherman Larson on 03-31-2023 Protein [Mass/Vol] 7.2 g/dL 6.4-8.9 [facility] RBC Auto (Bld) [#/Vol]Ordere d By: Sherman Larson on 03-31-2023 RBC (Bld) [#/Vol] 5.19 10*6/uL 3.60-5.00 [facility] Serum or plasma albumin/glob ulin mass ratioOrdered By: Sherman Larson on 03-31-2023 Albumin/Globulin [Mass ratio] 1.3 {ratio} [facility] Serum or plasma anion gap de terminationOrdered By: Sherman Larson on 03-31-2023 Anion gap [Moles/Vol] 12.2 mmol/L 6.0-15.0 [facility] Serum or plasma high density lipoprotein (HDL) cholesterol measurementOrdered By: Sherman Larson on 03-31-2023 Cholesterol in HDL [Mass/Vol] 39 mg/dL 23-92 [facility] Comment on above: HDL CHOL ATP-III CLA SSIFICATION Cardiovascular RiskHDL > or equal to 60 mg/dL LOWHDL < 40 mg/dL HIGH Serum or plasma total choles terol/high density lipoprotein (HDL) cholesterol mass ratOrdered By: Sherman Larson on 03-31-2023 Cholesterol.total/Cho lesterol in HDL [Mass ratio] 3.7 {ratio} <5.0 [facility] Sodium [Moles/volume] in Ser um or PlasmaOrdered By: Sherman Larson on 03-31-2023 Sodium [Moles/Vol] 136 mmol/L 136-145 [facility] Thyrotropin [Units/volume] i n Serum or PlasmaOrdered By: Sherman Larson on 03-31-2023 TSH Qn 2.43 m[IU]/L 0.45-5.33 [facility] Triglyceride [Mass/volume] i n Serum or PlasmaOrdered By: Sherman Larson on 03-31-2023 Triglyceride [Mass/Vol] 218 mg/dL 0-149 [facility] Comment on above: TRIG ATP III CLASSIF ICATIONTRIG less than 150 mg/dL NormalTRIG 150-199 mg/dL Borderline highTRIG 200-500 mg/dL High TRIG greater than 500 mg/dL Very highStandard traceable to the Center for Disease Conrtrol and Prevention (CDC) test method. Urea nitrogen [Mass/volume] in Serum or PlasmaOrdered By: Sherman Larson on 03-31-2023 Urea nitrogen [Mass/Vol] 19 mg/dL 7-25 [facility] Urine microalbumin/creatinin e mass ratioOrdered By: Rosanne Dumont on 03-31-2023 Albumin/Creatinine DL <= 20 mg/L (U) [Mass ratio] 12.0 mg/g 0.0-30.0 [facility] Comment on above: 30-300 mg/g indicate s an increased risk for diabetic nephropathy. Greater than 300 mg/g is consistent with clinical nephropathy. (Am. J. Kidney Disease 1995, 25:107) Vitamin B12 ser/plasOrdered By: Rosanne Dumont on 03-31-2023 Cobalamin (Vitamin B12) [Mass/Vol] 221 pg/mL 180-914 [facility] WBC Auto (Bld) [#/Vol]Ordere d By: Sherman Larson on 03-31-2023 WBC (Bld) [#/Vol] 7.2 10*3/uL 3.8-11.6 [facility] EGD - THERAPEUTIC, EUS, OR T UBE INTERVENTIONSon 02-19-2023 [facility] GLUCOSE, BLOOD (POC)on 02-19 Glucose [Mass/Vol] 198 mg/dL Abnormal 74 - 99 mg/dL [facility] Glucose [Mass/Vol] 175 mg/dL Abnormal 74 - 99 mg/dL [facility] A1C HEMOGLOBINon 02-10-2023 HbA1c (Bld) [Mass fraction] 7.3 % [facility] Other Glucose - FINGER STICKon Glucose [Mass/Vol] 167 mg/dL [facility] Other HbA1c (Bld) [Mass fraction]o n 02-10-2023 A1C HEMOGLOBIN [employer] Other A1C HEMOGLOBINon 11-04-2022 HbA1c (Bld) [Mass fraction] 7.9 % [facility] Other Glucose - FINGER STICKon Glucose [Mass/Vol] 212 mg/dL [facility] Other HbA1c (Bld) [Mass fraction]o n 11-04-2022 A1C HEMOGLOBIN [employer] Other A1C HEMOGLOBINon 07-21-2022 HbA1c (Bld) [Mass fraction] 8.2 % [facility] Other Glucose - FINGER STICKon Glucose [Mass/Vol] 243 mg/dL [facility] Other HbA1c (Bld) [Mass fraction]o n 07-21-2022 A1C HEMOGLOBIN [employer] Other A1C HEMOGLOBINon 04-09-2022 HbA1c (Bld) [Mass fraction] 7.1 % [facility] Other Glucose - FINGER STICKon Glucose [Mass/Vol] 253 mg/dL [facility] Other HbA1c (Bld) [Mass fraction]o n 04-09-2022 A1C HEMOGLOBIN [employer] Other A1C HEMOGLOBINon 12-18-2021 HbA1c (Bld) [Mass fraction] 7 % [facility] Other Glucose - FINGER STICKon Glucose [Mass/Vol] 200 mg/dL [facility] Other HbA1c (Bld) [Mass fraction]o n 12-18-2021 A1C HEMOGLOBIN [employer] Other A1C HEMOGLOBINon 09-10-2021 HbA1c (Bld) [Mass fraction] 7.2 % [facility] Other Glucose - FINGER STICKon Glucose [Mass/Vol] 247 mg/dL [facility] Other HbA1c (Bld) [Mass fraction]o n 09-10-2021 A1C HEMOGLOBIN [employer] Other Vital Signs Date Time Vital Sign Value Performing Clinician Facility 06-28-2024 09:51-0400 Body height 162.56 cm DO Sherman Larson Work Phone: [facility] 06-28-2024 09:51-0400 Body mass index (BMI) [Ratio] 44.1 kg/m2 DO Sherman Larson Work Phone: [facility] 06-28-2024 09:51-0400 Body temperature 95 [degF] DO Sherman Larson Work Phone: [facility] 06-28-2024 09:51-0400 Body weight 116.82 kg DO Sherman Larson Work Phone: [facility] 06-28-2024 09:51-0400 Diastolic blood pressure 73 mm[Hg] DO Sherman Larson Work Phone: [facility] 06-28-2024 09:51-0400 Heart rate 75 /min DO Sherman Kuns Work Phone: [facility] 06-28-2024 09:51-0400 Respiratory rate 18 /min DO Sherman Kuns Work Phone: [facility] 06-28-2024 09:51-0400 SaO2% (BldA) [Mass fraction] 95 % DO Sherman Kuns Work Phone: [facility] 06-28-2024 09:51-0400 Systolic blood pressure 126 mm[Hg] DO Sherman Kuns Work Phone: [facility] 06-21-2024 10:19-0400 Body height 162.56 cm DO Sherman Kuns Work Phone: [facility] 06-21-2024 10:19-0400 Body mass index (BMI) [Ratio] 44.4 kg/m2 DO Shreman Kuns Work Phone: [facility] 06-21-2024 10:19-0400 Body weight 117.48 kg DO Sherman Kuns Work Phone: [facility] 06-21-2024 10:08-0400 Body temperature 97.2 [degF] DO Sherman Kuns Work Phone: [facility] 06-21-2024 10:08-0400 Diastolic blood pressure 64 mm[Hg] DO Sherman Kuns Work Phone: [facility] 06-21-2024 10:08-0400 Heart rate 90 /min DO Sherman Kuns Work Phone: [facility] 06-21-2024 10:08-0400 Respiratory rate 18 /min DO Sherman Kuns Work Phone: [facility] 06-21-2024 10:08-0400 Systolic blood pressure 147 mm[Hg] DO Sherman Kuns Work Phone: [facility] 06-01-2024 09:02-0400 Body mass index (BMI) [Ratio] 44.69 kg/m2 Jules Navas MD Work Phone: [facility] 06-01-2024 09:02-0400 Body temperature 97.81 [degF] Jules Navas MD Work Phone: [facility] 06-01-2024 09:02-0400 Body weight 118.1 kg Jules Navas MD Work Phone: [facility] 06-01-2024 09:02-0400 Diastolic blood pressure 65 mm[Hg] Jules Navas MD Work Phone: [facility] 06-01-2024 09:02-0400 Heart rate 92 /min Jules Navas MD Work Phone: [facility] 06-01-2024 09:02-0400 Respiratory rate 18 /min Jules Navas MD Work Phone: [facility] 06-01-2024 09:02-0400 SaO2% (BldA) [Mass fraction] 96 % Jules Navas MD Work Phone: [facility] 06-01-2024 09:02-0400 Systolic blood pressure 155 mm[Hg] Jules Navas MD Work Phone: [facility] 05-30-2024 08:50-0400 Body height 162.56 cm DO Sherman Larson Work Phone: [facility] 05-30-2024 08:50-0400 Body mass index (BMI) [Ratio] 44.6 kg/m2 DO Sherman Larson Work Phone: [facility] 05-30-2024 08:50-0400 Body weight 117.93 kg DO Sherman Larson Work Phone: [facility] 05-30-2024 08:50-0400 Diastolic blood pressure 62 mm[Hg] DO Sherman Larson Work Phone: [facility] 05-30-2024 08:50-0400 Heart rate 76 /min DO Sherman Kuns Work Phone: [facility] 05-30-2024 08:50-0400 Respiratory rate 16 /min DO Sherman Kuns Work Phone: [facility] 05-30-2024 08:50-0400 SaO2% (BldA) [Mass fraction] 97 % DO Sherman Kuns Work Phone: [facility] 05-30-2024 08:50-0400 Systolic blood pressure 122 mm[Hg] DO Sherman Kuns Work Phone: [facility] 05-26-2024 14:11-0400 Body height 162.56 cm DO Sherman Kuns Work Phone: [facility] 05-26-2024 14:11-0400 Body mass index (BMI) [Ratio] 44.4 kg/m2 DO Sherman Kuns Work Phone: [facility] 05-26-2024 14:11-0400 Body weight 117.48 kg DO Sherman Kuns Work Phone: [facility] 05-26-2024 13:54-0400 Body temperature 98.1 [degF] DO Sherman Kuns Work Phone: [facility] 05-26-2024 13:54-0400 Diastolic blood pressure 75 mm[Hg] DO Sherman Kuns Work Phone: [facility] 05-26-2024 13:54-0400 Heart rate 90 /min DO Sherman Kuns Work Phone: [facility] 05-26-2024 13:54-0400 Respiratory rate 24 /min DO Sherman Kuns Work Phone: [facility] 05-26-2024 13:54-0400 Systolic blood pressure 134 mm[Hg] DO Sherman Kuns Work Phone: [facility] 03-22-2024 09:57-0400 Body height 162.56 cm DO Sherman Kuns Work Phone: [facility] 03-22-2024 09:57-0400 Body mass index (BMI) [Ratio] 44.5 kg/m2 DO Sherman Kuns Work Phone: [facility] 03-22-2024 09:57-0400 Body weight 117.7 kg DO Sherman Kuns Work Phone: [facility] 03-22-2024 09:57-0400 Diastolic blood pressure 78 mm[Hg] DO Sherman Kuns Work Phone: [facility] 03-22-2024 09:57-0400 Heart rate 80 /min DO Sherman Kuns Work Phone: [facility] 03-22-2024 09:57-0400 Respiratory rate 18 /min DO Sherman Stephans Work Phone: [facility] 03-22-2024 09:57-0400 SaO2% (BldA) [Mass fraction] 98 % DO Sherman Kuns Work Phone: [facility] 03-22-2024 09:57-0400 Systolic blood pressure 137 mm[Hg] DO Sherman Stephans Work Phone: [facility] 03-08-2024 13:26-0400 Body temperature 97.3 [degF] DO Sherman Stephans Work Phone: [facility] 03-08-2024 13:26-0400 Diastolic blood pressure 73 mm[Hg] DO Sherman Kuns Work Phone: [facility] 03-08-2024 13:26-0400 Heart rate 95 /min DO Sherman Kuns Work Phone: [facility] 03-08-2024 13:26-0400 Respiratory rate 20 /min DO Sherman Kuns Work Phone: [facility] 03-08-2024 13:26-0400 Systolic blood pressure 141 mm[Hg] DO Sherman Larson Work Phone: [facility] 03-01-2024 09:06-0400 Body height 162.56 cm DO Sherman Stephanfaby Work Phone: [facility] 03-01-2024 09:06-0400 Body mass index (BMI) [Ratio] 44.4 kg/m2 DO Sherman Larson Work Phone: [facility] 03-01-2024 09:06-0400 Body weight 117.48 kg DO Sherman Larson Work Phone: [facility] 02-17-2024 11:11-0400 Body height 162.6 cm Alley Marcanoraro PA-C Work Phone: [facility] 02-17-2024 11:11-0400 Body mass index (BMI) [Ratio] 44.97 kg/m2 Alley Yacapraro PA-C Work Phone: [facility] 02-17-2024 11:11-0400 Body weight 118.84 kg Alley Yacapraro PA-C Work Phone: [facility] 02-17-2024 11:11-0400 Diastolic blood pressure 78 mm[Hg] Alley Cabacapraro PA-C Work Phone: [facility] 02-17-2024 11:11-0400 Heart rate 85 /min Alley Yacapraro PA-C Work Phone: [facility] 02-17-2024 11:11-0400 Systolic blood pressure 126 mm[Hg] Alley Yacapraro PA-C Work Phone: [facility] 02-11-2024 10:53-0400 Body height 160.66 cm DO Sherman Larson Work Phone: [facility] 02-11-2024 10:53-0400 Body mass index (BMI) [Ratio] 46.1 kg/m2 DO Shermanleonor Rothmans Work Phone: [facility] 02-11-2024 10:53-0400 Body weight 119.06 kg DO Sherman Kuns Work Phone: [facility] 02-11-2024 10:53-0400 Diastolic blood pressure 55 mm[Hg] DO Sherman Kuns Work Phone: [facility] 02-11-2024 10:53-0400 Heart rate 86 /min DO Sherman Kuns Work Phone: [facility] 02-11-2024 10:53-0400 Respiratory rate 20 /min DO Sherman Kuns Work Phone: [facility] 02-11-2024 10:53-0400 SaO2% (BldA) [Mass fraction] 99 % DO Sherman Kuns Work Phone: [facility] 02-11-2024 10:53-0400 Systolic blood pressure 132 mm[Hg] DO Sherman Kuns Work Phone: [facility] 12-15-2023 10:32-0500 Body height 161.29 cm DO Sherman Kuns Work Phone: [facility] 12-15-2023 10:32-0500 Body mass index (BMI) [Ratio] 45.6 kg/m2 DO Sherman Kuns Work Phone: [facility] 12-15-2023 10:32-0500 Body weight 118.84 kg DO Sherman Kuns Work Phone: [facility] 12-15-2023 10:32-0500 Diastolic blood pressure 67 mm[Hg] DO Sherman Kuns Work Phone: [facility] 12-15-2023 10:32-0500 Heart rate 81 /min DO Sherman Kuns Work Phone: [facility] 12-15-2023 10:32-0500 Respiratory rate 18 /min DO Sherman Kuns Work Phone: [facility] 12-15-2023 10:32-0500 SaO2% (BldA) [Mass fraction] 96 % DO Sherman Larson Work Phone: [facility] 12-15-2023 10:32-0500 Systolic blood pressure 129 mm[Hg] DO Sherman Larson Work Phone: [facility] 10-19-2023 08:30-0500 Body height 161.29 cm Sherman Larson Other [facility] 10-19-2023 08:30-0500 Body mass index (BMI) [Ratio] 45.16 kg/m2 Sherman Larson Other [facility] [employer] Other 10-19-2023 08:30-0500 Body weight 117.48 kg Sherman Larson Other [facility] 10-19-2023 08:30-0500 Diastolic blood pressure 70 mm[Hg] Sherman Larson Other [facility] 10-19-2023 08:30-0500 Respiratory rate 18 /min Sherman Larson Other [employer] [facility] [employer] Other 10-19-2023 08:30-0500 SaO2% (BldA) [Mass fraction] 98 % Sherman Larson Other [facility] [employer] Other 10-19-2023 08:30-0500 Systolic blood pressure 126 mm[Hg] Sherman Rothmanfaby Other [facility] 09-09-2023 09:45-0500 Body height 161.29 cm Tondra Mapus Other [facility] 09-09-2023 09:45-0500 Body mass index (BMI) [Ratio] 45.97 kg/m2 Tondra Mapus Other [employer] Other 09-09-2023 09:45-0500 Body weight 119.61 kg Tondra Mapus Other [facility] 09-09-2023 09:45-0500 Diastolic blood pressure 75 mm[Hg] Tondra Mapus Other [facility] 09-09-2023 09:45-0500 Respiratory rate 18 /min Tondra Mapus Other [employer] Other 09-09-2023 09:45-0500 SaO2% (BldA) [Mass fraction] 97 % Tondra Mapus Other [employer] Other 09-09-2023 09:45-0500 Systolic blood pressure 116 mm[Hg] Tondra Mapus Other [facility] 06-29-2023 09:36-0400 Body height 160.02 cm DO Sherman Stephans Work Phone: [facility] 06-29-2023 09:36-0400 Body mass index (BMI) [Ratio] 46 kg/m2 DO Sherman Stephans Work Phone: [facility] 06-29-2023 09:36-0400 Body weight 117.93 kg DO Sherman Kuns Work Phone: [facility] 06-29-2023 09:30-0400 Body temperature 97.6 [degF] DO Sherman Kuns Work Phone: [facility] 06-29-2023 09:30-0400 Diastolic blood pressure 70 mm[Hg] DO Sherman Kuns Work Phone: [facility] 06-29-2023 09:30-0400 Heart rate 92 /min DO Sherman Kuns Work Phone: [facility] 06-29-2023 09:30-0400 Respiratory rate 20 /min DO Sherman Kuns Work Phone: [facility] 06-29-2023 09:30-0400 Systolic blood pressure 145 mm[Hg] DO Sherman Kuns Work Phone: [facility] 04-30-2023 09:07-0400 Body height 162.56 cm DO Sherman Kuns Work Phone: [facility] 04-30-2023 09:07-0400 Body mass index (BMI) [Ratio] 44.6 kg/m2 DO Sherman Kuns Work Phone: [facility] 04-30-2023 09:07-0400 Body weight 117.93 kg DO Sherman Kuns Work Phone: [facility] 04-30-2023 08:58-0400 Body temperature 97.7 [degF] DO Sherman Kuns Work Phone: [facility] 04-30-2023 08:58-0400 Diastolic blood pressure 89 mm[Hg] DO Sherman Kuns Work Phone: [facility] 04-30-2023 08:58-0400 Heart rate 88 /min DO Sherman Kuns Work Phone: [facility] 04-30-2023 08:58-0400 Respiratory rate 18 /min DO Sherman Kuns Work Phone: [facility] 04-30-2023 08:58-0400 Systolic blood pressure 113 mm[Hg] DO Sherman Kuns Work Phone: [facility] 03-30-2023 09:02-0400 Body temperature 97.8 [degF] DO Sherman Kuns Work Phone: [facility] 03-30-2023 09:02-0400 Diastolic blood pressure 79 mm[Hg] DO Sherman Kuns Work Phone: [facility] 03-30-2023 09:02-0400 Heart rate 97 /min DO Sherman Larson Work Phone: [facility] 03-30-2023 09:02-0400 Respiratory rate 20 /min DO Sherman Larson Work Phone: [facility] 03-30-2023 09:02-0400 Systolic blood pressure 138 mm[Hg] DO Sherman Larson Work Phone: [facility] 03-25-2023 14:58-0400 Body height 162.56 cm DO Sherman Larson Work Phone: [facility] 03-25-2023 14:58-0400 Body mass index (BMI) [Ratio] 44.6 kg/m2 DO Sherman Larson Work Phone: [facility] 03-25-2023 14:58-0400 Body weight 117.93 kg DO Sherman Larson Work Phone: [facility] 02-19-2023 15:15-0400 Diastolic blood pressure 58 mm[Hg] Lior Linton MD Work Phone: [facility] 02-19-2023 15:15-0400 Heart rate 85 /min Lior Linton MD Work Phone: [facility] 02-19-2023 15:15-0400 Respiratory rate 16 /min Lior Linton MD Work Phone: [facility] 02-19-2023 15:15-0400 SaO2% (BldA) [Mass fraction] 99 % Lior Linton MD Work Phone: [facility] 02-19-2023 15:15-0400 Systolic blood pressure 132 mm[Hg] Lior Linton MD Work Phone: [facility] 02-19-2023 14:44-0400 Body temperature 96.8 [degF] Lior Linton MD Work Phone: [facility] 02-10-2023 10:15-0400 Body height 161.29 cm Tondra Mapus Other [employer] Other 02-10-2023 10:15-0400 Body mass index (BMI) [Ratio] 46.2 kg/m2 Tondra Mapus Other [employer] Other 02-10-2023 10:15-0400 Body weight 120.2 kg Tondra Mapus Other [employer] Other 02-10-2023 10:15-0400 Diastolic blood pressure 77 mm[Hg] Tondra Mapus Other [employer] Other 02-10-2023 10:15-0400 Respiratory rate 18 /min Tondra Mapus Other [employer] Other 02-10-2023 10:15-0400 SaO2% (BldA) [Mass fraction] 98 % Tondra Mapus Other [employer] Other 02-10-2023 10:15-0400 Systolic blood pressure 138 mm[Hg] Tondra Mapus Other [employer] Other 02-02-2023 08:26-0400 Body height 161.3 cm [facility] 02-02-2023 08:26-0400 Body weight 117.94 kg [facility] 01-07-2023 09:51-0400 Body weight 120.2 kg Lior Linton MD Work Phone: [facility] 01-07-2023 09:51-0400 Diastolic blood pressure 86 mm[Hg] Lior Linton MD Work Phone: [facility] 01-07-2023 09:51-0400 Heart rate 91 /min Lior Linton MD Work Phone: [facility] 01-07-2023 09:51-0400 Systolic blood pressure 156 mm[Hg] Lior Linton MD Work Phone: [facility] 11-04-2022 10:15-0500 Body height 161.29 cm Tondra Mapus Other [employer] Other 11-04-2022 10:15-0500 Body mass index (BMI) [Ratio] 45.84 kg/m2 Tondra Mapus Other [employer] Other 11-04-2022 10:15-0500 Body weight 119.25 kg Tondra Mapus Other [employer] Other 11-04-2022 10:15-0500 Diastolic blood pressure 63 mm[Hg] Tondra Mapus Other [employer] Other 11-04-2022 10:15-0500 Respiratory rate 18 /min Tondra Mapus Other [employer] Other 11-04-2022 10:15-0500 SaO2% (BldA) [Mass fraction] 97 % Tondra Mapus Other [employer] Other 11-04-2022 10:15-0500 Systolic blood pressure 138 mm[Hg] Tondra Mapus Other [employer] Other 09-24-2022 09:45-0500 Body height 161.29 cm Sherman Larson Other [employer] Other 09-24-2022 09:45-0500 Body mass index (BMI) [Ratio] 45.57 kg/m2 Sherman Larson Other [employer] Other 09-24-2022 09:45-0500 Body weight 118.57 kg Sherman Larson Other [employer] Other 09-24-2022 09:45-0500 Diastolic blood pressure 62 mm[Hg] Sherman Larson Other [employer] Other 09-24-2022 09:45-0500 Respiratory rate 16 /min Sherman Larson Other [employer] Other 09-24-2022 09:45-0500 SaO2% (BldA) [Mass fraction] 96 % Sherman Larson Other [employer] Other 09-24-2022 09:45-0500 Systolic blood pressure 124 mm[Hg] Sherman Larson Other [employer] Other 09-17-2022 09:43-0500 Body temperature 97.59 [degF] Юлия Odom APRN.CNP Work Phone: [facility] 09-17-2022 09:43-0500 Body weight 120.2 kg Юлия Odom APRN.COMPUTER ASSISTANT Work Phone: [facility] 09-17-2022 09:43-0500 Diastolic blood pressure 55 mm[Hg] Юлия Odom APRN.COMPUTER ASSISTANT Work Phone: [facility] 09-17-2022 09:43-0500 Heart rate 81 /min Юлия Odom APRN.COMPUTER ASSISTANT Work Phone: [facility] 09-17-2022 09:43-0500 Respiratory rate 14 /min Юлия Odom APRN.COMPUTER ASSISTANT Work Phone: [facility] 09-17-2022 09:43-0500 Systolic blood pressure 143 mm[Hg] Юлия Reshma [facility] Work Phone: [facility] 07-21-2022 10:15-0400 Body height 161.29 cm Tondra Mapus Other [employer] Other 07-21-2022 10:15-0400 Body mass index (BMI) [Ratio] 46.03 kg/m2 Tondra Mapus Other [employer] Other 07-21-2022 10:15-0400 Body weight 119.75 kg Tondra Mapus Other [employer] Other 07-21-2022 10:15-0400 Diastolic blood pressure 60 mm[Hg] Tondra Mapus Other [employer] Other 07-21-2022 10:15-0400 Respiratory rate 16 /min Tondra Mapus Other [employer] Other 07-21-2022 10:15-0400 SaO2% (BldA) [Mass fraction] 96 % Tondra Mapus Other [employer] Other 07-21-2022 10:15-0400 Systolic blood pressure 141 mm[Hg] Tondra Mapus Other [employer] Other 04-09-2022 10:15-0400 Body height 161.29 cm Tondra Mapus Other [employer] Other 04-09-2022 10:15-0400 Body mass index (BMI) [Ratio] 47.42 kg/m2 Tondra Mapus Other [employer] Other 04-09-2022 10:15-0400 Body weight 123.38 kg Tondra Mapus Other [employer] Other 04-09-2022 10:15-0400 Diastolic blood pressure 65 mm[Hg] Tondra Mapus Other [employer] Other 04-09-2022 10:15-0400 Respiratory rate 16 /min Tondra Mapus Other [employer] Other 04-09-2022 10:15-0400 SaO2% (BldA) [Mass fraction] 97 % Tondra Mapus Other [employer] Other 04-09-2022 10:15-0400 Systolic blood pressure 132 mm[Hg] Tondra Mapus Other [employer] Other 12-18-2021 10:45-0500 Body height 161.29 cm Tondra Mapus Other [employer] Other 12-18-2021 10:45-0500 Body mass index (BMI) [Ratio] 47.6 kg/m2 Tondra Mapus Other [employer] Other 12-18-2021 10:45-0500 Body weight 123.83 kg Tondra Mapus Other [employer] Other 12-18-2021 10:45-0500 Diastolic blood pressure 74 mm[Hg] Tondra Mapus Other [employer] Other 12-18-2021 10:45-0500 Respiratory rate 16 /min Tondra Mapus Other [employer] Other 12-18-2021 10:45-0500 SaO2% (BldA) [Mass fraction] 97 % Tondrcamilo Lazarous Other [employer] Other 12-18-2021 10:45-0500 Systolic blood pressure 120 mm[Hg] Tondra Mapus Other [employer] Other 09-23-2021 09:30-0500 Body height 161.29 cm Sherman Larson Other [employer] Other 09-23-2021 09:30-0500 Body mass index (BMI) [Ratio] 47.42 kg/m2 Sherman Larson Other [employer] Other 09-23-2021 09:30-0500 Body weight 123.38 kg Sherman Larson Other [employer] Other 09-23-2021 09:30-0500 Diastolic blood pressure 60 mm[Hg] Sherman Larson Other [employer] Other 09-23-2021 09:30-0500 Respiratory rate 16 /min Sherman Larson Other [employer] Other 09-23-2021 09:30-0500 SaO2% (BldA) [Mass fraction] 98 % Sherman Larson Other [employer] Other 09-23-2021 09:30-0500 Systolic blood pressure 126 mm[Hg] Sherman Larson Other [employer] Other 09-10-2021 11:45-0500 Body height 161.29 cm Tondra Mapus Other [employer] Other 09-10-2021 11:45-0500 Body mass index (BMI) [Ratio] 47.94 kg/m2 Tondra Mapus Other [employer] Other 09-10-2021 11:45-0500 Body weight 124.74 kg Tondra Mapus Other [employer] Other 09-10-2021 11:45-0500 Diastolic blood pressure 63 mm[Hg] Tondra Mapus Other [employer] Other 09-10-2021 11:45-0500 Respiratory rate 20 /min Tondra Mapus Other [employer] Other 09-10-2021 11:45-0500 SaO2% (BldA) [Mass fraction] 96 % Tondra Mapus Other [employer] Other 09-10-2021 11:45-0500 Systolic blood pressure 121 mm[Hg] Tondra Mapus Other [employer] Other Encounters Encounter Date Encounter Type Care Provider Facility Start: 06-28-2024 End: 06-28-2024 ambulatory DO Sherman Larson Work Phone: [facility] Work Phone: Start: 06-28-2024 End: 06-28-2024 Patient encounter procedure DO Sherman Larson Work Phone: [facility] Work Phone: Start: 06-21-2024 ambulatory Hien Rodriguezsey Facility:[facility] Start: 06-21-2024 Registered Recurring DO Sherman Larson Work Phone: [facility] Work Phone: Start: 06-01-2024 End: 06-01-2024 ambulatory SHERMAN LARSON Facility:[facility] Start: 06-01-2024 End: 06-01-2024 Follow-up encounter Jules Navas MD Work Phone: Gynecology Oncology Comment on above: Encounter for follow -up surveillance of endometrial cancer (Primary Dx); Pulmonary nodule; Adenopathy Start: 06-01-2024 End: 06-01-2024 Patient encounter procedure Jules Navas MD Work Phone: Gynecology Oncology Start: 05-30-2024 End: 05-30-2024 ambulatory DO Sherman Larson Work Phone: [facility] Work Phone: Start: 05-30-2024 End: 05-30-2024 Patient encounter procedure DO Sherman Larson Work Phone: [facility] Work Phone: Start: 05-26-2024 Registered Recurring DO Sherman Larson Work Phone: [facility] Work Phone: Start: 05-26-2024 End: 05-26-2024 ambulatory SHERMAN LARSON Facility:[facility] Start: 05-26-2024 End: 05-26-2024 Subsequent hospital visit by physician Arrival Time Radiology Work Phone: Radiology [facility] Comment on above: Lung nodules [R91.8] Start: 04-28-2024 Non-patient / Non-visit DO Sherman Larson Work Phone: [facility] Work Phone: Start: 04-28-2024 End: 04-28-2024 ambulatory SHERMAN LARSON Facility:[facility] Start: 04-26-2024 Telephone encounter Lavinia Campoverde RN Hematology/Oncology Start: 04-11-2024 Telephone encounter Юлия man COMPANY MANAGER.COMPUTER ASSISTANT Work Phone: Gynecology Start: 03-29-2024 End: 03-29-2024 ambulatory SHERMAN LARSON Facility:[facility] Start: 03-25-2024 End: 03-25-2024 ambulatory SHERMAN LARSON Facility:[facility] Start: 03-25-2024 End: 03-25-2024 Subsequent hospital visit by physician Arrival Time Radiology Work Phone: Radiology [facility] Comment on above: History of uterine c ancer [Z85.42] Start: 03-22-2024 End: 03-22-2024 Patient encounter procedure DO Sherman Larson Work Phone: [facility] [place] Work Phone: Start: 03-22-2024 End: 03-22-2024 ambulatory DO Sherman Larson Work Phone: [facility] Work Phone: Start: 03-22-2024 End: 03-22-2024 ambulatory DO Sherman Larson Work Phone: [facility] Work Phone: Start: 03-22-2024 End: 03-22-2024 Patient encounter procedure DO Sherman Larson Work Phone: [facility] Work Phone: Start: 03-18-2024 End: 03-18-2024 Patient encounter procedure DO Sherman Larson Work Phone: [facility] [place] Work Phone: Start: 03-18-2024 End: 03-18-2024 ambulatory DO Sherman Larson Work Phone: [facility] Work Phone: Start: 03-15-2024 ambulatory Юлия davis COMPANY MANAGER.COMPUTER ASSISTANT Work Phone: Gynecology Comment on above: responded Start: 03-15-2024 E-mail encounter fro m caregiver Юлия Odom COMPANY MANAGER.COMPUTER ASSISTANT Work Phone: Gynecology Start: 03-11-2024 End: 03-11-2024 ambulatory DO Shermanleonor Larson Work Phone: [facility] Work Phone: Start: 03-11-2024 End: 03-11-2024 Patient encounter procedure DO Shermanleonor Larson Work Phone: [facility] Work Phone: Start: 03-10-2024 Non-patient / Non-visit DO Shermanleonor Larson Work Phone: [facility] Work Phone: Start: 03-10-2024 End: 03-10-2024 ambulatory SHERMAN P NEO Facility:[facility] Start: 03-08-2024 Telephone encounter Юлия man COMPANY MANAGER.COMPUTER ASSISTANT Work Phone: [facility] Comment on above: Lung bx Start: 03-08-2024 Registered Recurring DO Shermanleonor Larson Work Phone: [facility] Work Phone: Start: 03-03-2024 End: 03-03-2024 ambulatory SHERMAN P NEO Facility:[facility] Start: 03-03-2024 Non-patient / Non-visit DO Shermanleonor Larson Work Phone: [facility] Work Phone: Start: 03-03-2024 End: 03-03-2024 Subsequent hospital visit by physician Arrival Time Radiology Work Phone: Radiology [facility] Comment on above: Lung nodules [R91.8] Start: 02-23-2024 End: 02-23-2024 Patient encounter procedure DO Sherman Neo Work Phone: [facility] Work Phone: Start: 02-17-2024 End: 02-17-2024 ambulatory SHERMAN LARSON Facility:[facility] Start: 02-17-2024 End: 02-17-2024 Office outpatient visit 25 minutes Alley Augustin PA-C Work Phone: Gastroenterology Comment on above: Abnormal results of liver function studies (Primary Dx); Cystadenoma; Pancreatic cyst; Screening for colon cancer Start: 02-15-2024 Telephone encounter Юлия man APRN.COMPUTER ASSISTANT Work Phone: Hematology/Oncology Comment on above: Orders Start: 02-11-2024 End: 02-11-2024 Patient encounter procedure DO Sherman Larson Work Phone: [facility] Work Phone: Start: 12-15-2023 End: 12-15-2023 Patient encounter procedure DO Sherman Larson Work Phone: [facility] Work Phone: Start: 11-04-2023 End: 11-04-2023 ambulatory ЮЛИЯ ODOM Facility:[facility] Start: 10-19-2023 End: 10-19-2023 ambulatory Sherman Larson Other [employer] Other Start: 10-19-2023 Office outpatient visit 25 minutes Sherman Larson [facility] [place] Start: 10-19-2023 End: 10-19-2023 Patient encounter procedure DO Sherman Larson Work Phone: [facility] [place] Work Phone: Start: 09-15-2023 End: 09-15-2023 ambulatory DO Sherman Larson Work Phone: [facility] Work Phone: Start: 09-15-2023 End: 09-15-2023 Departed Referred DO Sherman Larson Work Phone: [facility] [place] Work Phone: Start: 09-09-2023 (DM) Diabetes Rosanne Dumont [facility] Start: 09-09-2023 Telephone encounter Rosanne Dumont [facility] Start: 09-09-2023 End: 09-09-2023 Discharged Recurring DO Sherman Larson Work Phone: [facility] Work Phone: Start: 09-09-2023 Registered Recurring DO Sherman Larson Work Phone: [facility] Work Phone: Start: 09-09-2023 End: 09-09-2023 ambulatory DO Sherman Larson Work Phone: [employer] Other Start: 09-09-2023 End: 09-09-2023 Patient encounter procedure DO Sherman Larson Work Phone: [facility] Work Phone: Start: 07-15-2023 End: 07-15-2023 Patient encounter procedure DO Sherman Larson Work Phone: [facility] Work Phone: Start: 07-15-2023 End: 07-15-2023 ambulatory DO Sherman Larson Work Phone: [facility] Work Phone: Start: 06-29-2023 End: 06-29-2023 ambulatory DO Sherman Larson Work Phone: [facility] Work Phone: Start: 06-29-2023 End: 06-29-2023 Discharged Recurring DO Sherman Larson Work Phone: [facility] [place] Work Phone: Start: 06-29-2023 Registered Recurring DO Shermanleonor Larson Work Phone: [facility] [place] Work Phone: Start: 05-26-2023 Registered Recurring DO Sherman Larson Work Phone: [facility] Work Phone: Start: 04-30-2023 End: 04-30-2023 ambulatory DO Sherman Neo Work Phone: [facility] Work Phone: Start: 04-30-2023 End: 04-30-2023 Discharged Recurring DO Sherman Larson Work Phone: [facility] [place] Work Phone: Start: 04-05-2023 End: 04-05-2023 ambulatory Sherman Larson Other [employer] Other Start: 04-05-2023 Encounter by ji r anastacia Larson [facility] [place] Start: 04-02-2023 End: 04-02-2023 ambulatory Tondra Tim Other [facility] [facility] Other Start: 04-02-2023 Telephone encounter Tona Tim [facility] Start: 03-31-2023 End: 03-31-2023 ambulatory DO Sherman Larson Work Phone: [facility] Work Phone: Start: 03-31-2023 End: 03-31-2023 Patient encounter procedure DO Sherman Larson Work Phone: [facility] [place] Work Phone: Start: 03-30-2023 Registered Recurring DO Sherman Larson Work Phone: [facility] [place] Work Phone: Start: 02-19-2023 ambulatory Ivory Rizo icfrancisco j [facility] Work Phone: H[facility] HB-3 Comment on above: antibiotic prescript ion Start: 02-19-2023 E-mail encounter fro m caregiver Ivory Stuart [facility] Work Phone: [facility] Start: 02-19-2023 End: 02-19-2023 Subsequent hospital visit by physician Lior Linton MD Work Phone: [facility] Endoscopy - ENDO Comment on above: Pancreatic cyst [K86 .2] Start: 02-10-2023 (DM) Diabetes Tondra Mapus [facility] Start: 02-10-2023 End: 02-10-2023 ambulatory Tondra Mapus Other [employer] Other Start: 02-10-2023 Registered Recurring DO Sherman Larson Work Phone: [facility] Work Phone: Start: 02-09-2023 ambulatory Lior Linton MD Work Phone: [facility] Endoscopy - ENDO Start: 02-04-2023 Telephone encounter Orville Rocha (Senior Living Sales Counselor) Issa nt Pre Anesthesia Comment on above: Received Outside [facility] Records (Lab Results) Start: 02-02-2023 End: 02-02-2023 Admission to establishment Pacc Main Virtual [facility] Start: 02-02-2023 End: 02-02-2023 ambulatory Pacc Virtual Pre Anesthesia Comment on above: Pre-op evaluation (P rimary Dx); Type 2 diabetes mellitus without complication, unspecified whether joint 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 controller insulin use (HCC); Mixed hyperlipidemia; Endometrial cancer (HCC); Morbid obesity (HCC) Start: 02-02-2023 End: 02-02-2023 Preprocedural examination done Pacc Virtual Pre Anesthesia Start: 01-22-2023 Telephone encounter Lior page MD Work Phone: Gastroenterology Comment on above: Imaging available fo r review Start: 01-07-2023 End: 01-07-2023 Patient encounter procedure Lior Linton MD Work Phone: Gastroenterology Comment on above: Pancreatic cyst (Qian lakhwinder Dx); Family history of pancreatic cancer; History of endometrial cancer Start: 11-04-2022 (DM) Diabetes Tondra Dumont [facility] Start: 11-04-2022 End: 11-04-2022 ambulatory Tondra Tejasus Other [employer] Other Start: 11-02-2022 End: 11-02-2022 ambulatory Heidi Sanchez Other [employer] Other Start: 11-02-2022 Encounter by ji Gordon Keolinette [facility] Start: 10-30-2022 Telephone encounter Lior page MD Work Phone: Gastroenterology Comment on above: Orders Start: 10-14-2022 End: 10-14-2022 ambulatory Tondra Mapus Other [employer] Other Start: 10-14-2022 Telephone encounter Tondra Dumont [facility] Start: 09-24-2022 End: 09-24-2022 ambulatory Sherman Larson Other [employer] Other Start: 09-24-2022 Office outpatient visit 15 minutes Sherman Larson [facility] [place] Start: 09-17-2022 End: 09-17-2022 Follow-up encounter Юлия Odom APRN.COMPUTER ASSISTANT Work Phone: Gynecology Comment on above: Encounter for follow -up surveillance of endometrial cancer (Primary Dx); Pancreatic cyst; Lung nodules Start: 09-17-2022 End: 09-17-2022 Patient encounter procedure Юлия Odom APRN.COMPUTER ASSISTANT Work Phone: [facility] Start: 08-13-2022 Telephone encounter Lavinia Godfrey RN R adiology Pet CT Comment on above: Orders Start: 07-21-2022 (DM) Diabetes Tondra Mapus [facility] Start: 07-21-2022 End: 07-21-2022 ambulatory Tondra Mapus Other [employer] Other Start: 06-11-2022 End: 06-11-2022 Patient encounter procedure DO Sherman Rothmanfaby Work Phone: [facility] Start: 04-09-2022 Registered Recurring DO Sherman Rothmanfaby Work Phone: [facility] Start: 04-09-2022 (DM) Diabetes Tondra Mapus [facility] Start: 04-09-2022 End: 04-09-2022 ambulatory Tondra Mapus Other [employer] Other Start: 03-25-2022 End: 03-25-2022 ambulatory Sherman Larson Other [employer] Other Start: 03-25-2022 Telephone encounter Sherman Larson [facility] [place] Start: 03-12-2022 End: 03-12-2022 ambulatory Tondra Mapus Other [employer] Other Start: 03-12-2022 Telephone encounter Tondra Mapus [facility] Start: 01-29-2022 End: 01-29-2022 ambulatory Tondra Mapus Other [employer] Other Start: 01-29-2022 Telephone encounter Tondra Mapus [facility] Start: 12-18-2021 (DM) Diabetes Tondra Mapus [facility] Start: 12-18-2021 End: 12-18-2021 ambulatory Tondra Mapus Other [employer] Other Start: 10-18-2021 End: 10-18-2021 ambulatory Sherman Larson Other [employer] Other Start: 10-18-2021 Telephone encounter Sherman Larson [facility] Start: 09-23-2021 End: 09-23-2021 ambulatory Sherman Larson Other [employer] Other Start: 09-23-2021 Office outpatient visit 25 minutes Shermanleonor Rothmanfaby [facility] Start: 09-10-2021 (DM) Diabetes Tona Tim [facility] Start: 09-10-2021 End: 09-10-2021 ambulatory Rosanne Dumont Other [employer] Other Start: 11-04-2018 Preoperative state Rosanne Dawkins s Other [employer] Other Procedures Date Procedure Procedure Detail Performing Clinician Start: 05-26-2024 Ct thorax w/contrast material Юлия Gargalianos COMPANY MANAGER.COMPUTER ASSISTANT Work Phone: Start: 03-25-2024 Ct abdomen & pelvis w/contrast material Юлия Gargalianos COMPANY MANAGER.COMPUTER ASSISTANT Work Phone: Start: 03-03-2024 Ct thorax w/contrast material Юлия Gargalianos COMPANY MANAGER.COMPUTER ASSISTANT Work Phone: Start: 03-03-2024 Comprehensive metabo lic panel Alley Augustin PA-C Work Phone: Start: 02-04-2024 Investigation of transfusion reaction DO Sherman Larson Work Phone: Start: 09-15-2023 Aerobic microbial culture DO Sherman Larson Work Phone: Start: 07-15-2023 Screening mammograph y of bilateral breasts DO Sherman Larson Work Phone: Start: 02-19-2023 End: 02-19-2023 Gluc bld gluc mntr dev cleared fda spec home use Jelly Marilinstew [employer] Work Phone: Start: 02-19-2023 Esophagoscp rig ledezma soral hypopharynx crv ramiro Linton MD Work Phone: Start: 06-11-2022 Screening mammograph y of bilateral breasts DO Sherman Larson Work Phone: Start: 06-11-2022 Dual energy X-ray absorptiometry DO Sherman Larson Work Phone: Plan of Treatment Date Care Activity Detail Author Start: 03-14-2027 Screening for malignant neoplasm of colon [facility] Start: 11-23-2024 End: 11-23-2024 Follow-up encounter 11/23/2024 9:15 AM EST Visit (SP) Office Gynecology Oncology [address] [place] [address] Jules Navas MD [address] [place] [address] 1 YEAR FOLLOW UP Gynecology Oncology Comment on above: 1 YEAR FOLLOW UP Start: 11-16-2024 End: 11-16-2024 Patient encounter procedure 11/16/2024 7:45 AM EST Appointment Radiology Pet CT [address] [place] [address] CT CAP W IVCON per staff message before office visit Radiology Pet CT Comment on above: CT CAP W IVCON per staff message before office visit Start: 11-09-2024 End: 11-09-2024 Follow-up encounter Gynecology Comment on above: 1 YEAR FOLLOW UP Start: 06-12-2024 Covid-19 Vaccine ( season) Covid-19 Vaccine ( season) [facility] Start: 06-12-2024 Influenza vaccination Influenza Vaccine (#1) [facility] Start: 06-01-2024 End: 06-01-2024 ambulatory 06/01/2024 9:00 AM EDT Visit (SP) Office Gynecology Oncology [address] [place] [address] Jules Navas MD [address] [place] [address] SCANS Gynecology Oncology Comment on above: FU REVIEW CT SCANS Start: 05-26-2024 End: 05-26-2024 Patient encounter procedure 05/26/2024 9:15 AM EDT Appointment Radiology Pet CT [address] [place] [address] CT CHEST Radiology Pet CT Comment on above: CT CHEST Start: 04-28-2024 End: 04-28-2024 ambulatory 04/28/2024 9:15 AM EDT Results Only [facility] [address] [place] [address] [facility] Start: 04-26-2024 End: 07-26-2024 CREATININE BLD CREATININE BLD Lab Routine Endometrial ca (HCC) Expected: 04/26/2024, Expires: 07/26/2024 [facility] Work Phone: Comment on above: Expected: 04/26/2024, Expires: Start: 03-29-2024 End: 03-29-2024 Admission to same day surgery center 03/29/2024 9:30 AM EDT - 03/29/2024 10:30 AM EDT Surgery Angio [address] [place] [address] Ritesh Randall MD [address] [place] [address] CORE NEEDLE BIOPSY LUNG OR MEDIASTINUM PERC INCLD IMAGING GUIDANCE WHEN PERFORMED Angio Comment on above: CORE NEEDLE BIOPSY LUNG OR MEDIASTINUM P ERC INCLD IMAGING GUIDANCE WHEN PERFORMED Start: 03-29-2024 End: 03-29-2024 CORE NEEDLE BIOPSY LUNG OR MEDIASTINUM PERC INCLD IMAGING GUIDANCE WHEN PERFORMED CORE NEEDLE BIOPSY LUNG OR MEDIASTINUM PERC INCLD IMAGING GUIDANCE WHEN PERFORMED History of uterine cancer Lung nodules 03/29/2024 9:30 AM EDT ANGIO HB6 Start: 03-29-2024 Subsequent hospital visit by physician 03/29/2024 9:30 AM EDT Hospital Encounter Angio [address] [place] [address] Ritesh Randall MD [address] [place] [address] History of uterine cancer [Z85.42] Angio Comment on above: History of uterine cancer [Z85.42] Start: 03-25-2024 End: 03-25-2024 Patient encounter procedure 03/25/2024 7:45 AM EDT Appointment Radiology Pet CT [address] [place] [address] CT AP W IVCON Radiology Pet CT Comment on above: CT AP W IVCON Start: 03-03-2024 End: 06-02-2024 CREATININE BLD CREATININE BLD Lab Routine Endometrial ca (HCC) Expected: 03/03/2024 (Approximate), Expires: 06/02/2024 [facility] Work Phone: Comment on above: Expected: 03/03/2024 (Approximate), Expi res: 06/02/2024 Start: 03-03-2024 End: 03-03-2024 Patient encounter procedure 03/03/2024 8:45 AM EDT Appointment Radiology Pet CT [address] [place] [address] Ct [address] Pet CT Comment on above: Ct Chest Start: 02-17-2024 End: 05-18-2024 Comprehensive metabolic 2000 panel - Serum or Plasma COMPREHENSIVE METABOLIC PANEL Lab Routine Abnormal results of liver function studies Expected: 02/17/2024, Expires: 05/18/2024 [facility] Comment on above: Expected: 02/17/2024, Expires: Start: 02-17-2024 End: 05-18-2024 PT panel - Platelet poor plasma by Coagulation assay PROTHROMBIN TIME Lab Routine Abnormal results of liver function studies Expected: 02/17/2024, Expires: 05/18/2024 [facility] Comment on above: Expected: 02/17/2024, Expires: Start: 02-17-2024 End: 02-17-2024 Patient encounter procedure 02/17/2024 11:00 AM EDT Office Visit Gastroenterology [address] [place] [address] Alley Augustin PA-C [address] [place] [address] 1Yr F/U O/V Gastroenterology Comment on above: 1Yr F/U O/V Start: 11-15-2023 Covid-19 Vaccine () Covid-19 Vaccine () [facility] Start: 10-12-2023 Advance Directive Discussion Advance Directive Discussion [facility] Start: 10-12-2023 Behavioral Health Screening Behavioral Health Screening [facility] Start: 09-15-2023 Superficial Wound Culture Superficial Wound Culture [facility] Start: 10-12-2022 ADVANCE DIRECTIVE DISCUSSION ADVANCE DIRECTIVE DISCUSSION [facility] Start: 10-12-2022 DEPRESSION ASSESSMENT DEPRESSION ASSESSMENT [facility] Start: 09-11-2022 End: 11-11-2022 CREATININE BLD CREATININE BLD Lab Routine Malignant neoplasm of body of uterus, unspecified site (HCC) Expected: 09/11/2022, Expires: 11/11/2022 [facility] Work Phone: Comment on above: Expected: 09/11/2022, Expires: 3 Start: 06-12-2022 Influenza vaccination INFLUENZA (#1) [facility] Start: 10-12-2021 ADVANCE DIRECTIVE DISCUSSION ADVANCE DIRECTIVE DISCUSSION [facility] Start: 10-12-2021 DEPRESSION ASSESSMENT DEPRESSION ASSESSMENT [facility] Start: 09-02-2021 COVID-19 VACCINE (4 - Booster for Pfizer series) COVID-19 VACCINE (4 - Booster for Pfizer series) [facility] Start: 2018 BONE DENSITY BONE DENSITY [facility] Start: 2018 Screening for osteoporosis Bone Density Screening [facility] Start: 2013 RSV Vaccine (1 - 1-dose 60+ series) RSV Vaccine (1 - 1-dose 60+ series) [facility] Start: 2003 SHINGRIX VACCINE (1 of 2) SHINGRIX VACCINE (1 of 2) [facility] Start: 05-04-2002 Urine microalbumin profile [facility] Start: 1998 COLOGUARD (FIT-DNA) COLOGUARD (FIT-DNA) [facility] Start: 1998 Colonoscopy COLONOSCOPY [facility] Start: 1998 COLORECTAL CANCER SCREENING COLORECTAL CANCER SCREENING [facility] Start: [address] COLONOGRAPHY [facility] Start: 1998 FECAL OCCULT BLOOD FECAL OCCULT BLOOD [facility] Start: 1998 Screening for malignant neoplasm of colon [facility] Start: 1998 SIGMOIDOSCOPY SIGMOIDOSCOPY [facility] Start: 1993 Mammography MAMMOGRAM [facility] Start: 1993 Screening for malignant neoplasm of breast Mammogram Screening [facility] Start: 1971 ANNUAL PCP TEAM CHRONIC DISEASE VISIT ANNUAL PCP TEAM CHRONIC DISEASE VISIT [facility] Start: 1971 Anxiety Screening Anxiety Screening [facility] Start: 1971 Depression Screening Depression Screening [facility] Start: 1971 Hepatitis B surface antibody level LDL CHOLESTEROL [facility] Start: 1971 HEPATITIS C SCREENING HEPATITIS C SCREENING [facility] Start: 1971 Hepatitis C screening Hepatitis C Screening [facility] Start: 1963 3 comp foot exam completed DIABETIC FOOT EXAM [facility] Start: 1963 Diabetic foot examination Diabetic Foot Exam [facility] Start: 1963 Glaucoma screening Dilated Retinal Exam [facility] Start: 1963 Hepatitis B screening URINE ALBUMIN:CREATININE RATIO [facility] Start: 1963 Hepatitis C antibody, confirmatory test DILATED RETINAL EXAM [facility] Start: 1959 PNEUMOCOCCAL: 65+ (1 - PCV) PNEUMOCOCCAL: 65+ (1 - PCV) [facility] Start: 1958 Hemoglobin A1c measurement HbA1C [facility] Start: 1958 Hemoglobin A1c/Hemoglobin.total in Blood HBA1C [facility] Bacteria identified in Unspecified specimen by Aerobe culture [facility] COLOGUARD COLOGUARD Lab Ro utine Screening for colon cancer Ordered: 02/17/2024 [facility] Work Phone: Comment on above: Ordered: 02/17/2024 Comprehensive metabolic 2000 panel - Serum or Plasma [facility] End: 07-01-2025 CT Abdomen and Pelvis W contrast IV CT ABD/PEL W IVCON Radiology Routine Encounter for follow-up surveillance of endometrial cancer Pulmonary nodule Adenopathy 1 Occurrences starting 06/01/2024 until 07/01/2025 [facility] Work Phone: Comment on above: 1 Occurrences starting 06/01/2024 until 07/01/2025 End: 05-11-2025 CT Chest W contrast IV CT CHEST W IVCON Radiology Routine Lung nodules 1 Occurrences starting 04/11/2024 until 05/11/2025 [facility] Work Phone: Comment on above: 1 Occurrences starting 04/11/2024 until 05/11/2025 End: 07-01-2025 CT Chest W contrast IV CT CHEST W IVCON Radiology Routine Encounter for follow-up surveillance of endometrial cancer Pulmonary nodule Adenopathy 1 Occurrences starting 06/01/2024 until 07/01/2025 [facility] Comment on above: 1 Occurrences starting 06/01/2024 until 07/01/2025 CYTOLOGY NON-COMMUNITY AFFAIRS DIRECTOR CYTOLOGY NON-GY N Lab Routine Pancreatic cyst Release Upon Ordering for 1 Occurrences starting 02/19/2023 [facility] Work Phone: Comment on above: Release Upon Ordering for 1 Occurrences starting 02/19/2023 End: 01-08-2024 EGD - THERAPEUTIC, EUS, OR TUBE INTERVENTIONS EGD - THERAPEUTIC, EUS, OR TUBE INTERVENTIONS Endoscopy Routine Pancreatic cyst 1 Occurrences starting 01/07/2023 until 01/08/2024 [facility] Work Phone: Comment on above: 1 Occurrences starting 01/07/2023 until 01/08/2024 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 [Identifier] in Blood or Tissue by Molecular genetics method [facility] End: 03-18-2025 MR Biliary ducts and Pancreatic duct WO and W contrast IV MRI PANC/KOBI WO/W IVCON Radiology Routine Abnormal results of liver function studies 1 Occurrences starting 02/17/2024 until 03/18/2025 [facility] Comment on above: 1 Occurrences starting 02/17/2024 until 03/18/2025 End: 03-18-2025 MR Unspecified body region 3D post processing MRI 3D POST PROCESSING Radiology Routine Cystadenoma Pancreatic cyst 1 Occurrences starting 02/17/2024 until 03/18/2025 [facility] Comment on above: 1 Occurrences starting 02/17/2024 until 03/18/2025 Patient Education [facility] Work Phone: [facility] Immunizations Immunization Date Immunization Notes Care Provider Fa cility 07-15-2023 COVID-19 (PFIZER) 12Y and older DO Sherman Larson Work Phone: [facility] 07-15-2023 Fluzone QIV High-Dos e 65YR+ DO Sherman Larson Work Phone: [facility] 07-15-2023 Pneumococcal Conjuga te Vaccine, 20 valent DO Sherman Larson Work Phone: [facility] 07-15-2023 influenza virus vaccine, unspecified formulation Юлия Odom COMPANY MANAGER.COMPUTER ASSISTANT Work Phone: [facility] 07-07-2022 COVID-19 mRNA Bivale nt Booster (Pfizer) DO Sherman Larson Work Phone: [facility] 07-07-2022 Influenza vaccine, quadrivalent, adjuvanted DO Sherman Larson Work Phone: [facility] 02-18-2022 COVID-19 original vaccine, age 12+ yr, monovalent (PFIZER-BIONTECH - JARAMILLO TOP) Ivory Stuart [facility] Work Phone: [facility] 02-18-2022 COVID-19 Vaccine Pfi zer - Documentation Purposes Only Shermna Larson Other [facility] 07-08-2021 COVID-19 Pfizer Sherman Larson Other [facility] 07-08-2021 Fluzone QIV High-Dos e 65YR+ DO Sherman Larson Work Phone: [facility] 07-08-2021 influenza, seasonal, injectable Sherman Larson Other [facility] 01-03-2021 COVID-19 Pfizer Sherman Larson Other [facility] 12-13-2020 COVID-19 Pfizer Sherman Larson Other [facility] 09-21-2020 zoster vaccine recombinant Sherman Larson Other [facility] 06-26-2020 Fluzone QIV High-Dos e 65YR+ DO Sherman Larson Work Phone: [facility] 06-26-2020 zoster vaccine recombinant Sherman Larson Other [facility] 06-20-2019 influenza, high dose seasonal, preservative-free DO Sherman Larson Work Phone: [facility] 06-20-2019 influenza, seasonal, injectable Tondra Mapus Other [facility] 07-05-2018 influenza, injectabl e, quadrivalent, preservative free Lavinia Godfrey RN [facility] 06-01-2017 influenza, injectabl e, quadrivalent, preservative free Lavinia oGdfrey RN [facility] 08-10-2009 novel [id number], preservative-free, injectable Lavinia Godfrey RN [facility] 05-03-2002 TD(adult) unspecifie d formulation Lavinia Godfrey RN [facility] Payers Date Payer Category Payer Medicare MEDICARE MEDICAR E A AND B [id number] 2018-Present [phone] [place] [address] Medicare [id number] 2018 Unknown [id number] 2018 Unknown [id number] 2018 Medicare [id number] 2018 Self-pay [id number] 2018 Unknown [id number] Unknown [id number] Unknown [id number] Unknown [id number] Unknown [id number] Unknown [id number] Unknown [id number] Unknown [id number] Unknown [id number] Social History Date Type Detail Facility Unknown if ever smoked [employer] Other Start: 02-02-2023 End: 11-04-2023 Sex Assigned At [facility] Start: 07-30-2021 End: 06-21-2024 Tobacco smoking status NHIS Never smoked tobacco (finding) [facility] Start: 1955 Sex Assigned At Female [facility] Start: 02-12-2018 End: 09-17-2022 Tobacco use and exposure Smokeless tobacco non-user [facility] Start: 04-03-2021 End: 02-17-2024 Alcohol intake Current non-drinker of alcohol (finding) [facility] Start: 09-01-2022 End: 09-11-2022 Exposure to SARS-CoV-2 (event) Not sure [facility] Start: 02-02-2023 End: 11-04-2023 History of Social function [facility] Adult Depression Screening Assessment 0 [facility] Start: 09-05-2020 Gender identity Identifies as female gender (finding) [facility] Start: 09-05-2020 Sexual orientation Heterosexual (finding) [facility] Medical Equipment Procedure Code Equipment Code [...] [facility] [employer] FDA Start: 11-16-2018 Start: 09-14-2013 blood sugar diagnostic (FreeStyle Precision Joe Strips) Start: 12-15-2023 blood sugar diagnostic (FreeStyle Precision Joe Strips) Start: 12-15-2023 blood sugar diagnostic (FreeStyle Precision Joe Strips) Start: 12-15-2023 blood sugar diagnostic (FreeStyle Precision Joe Strips) Start: 12-15-2023 blood sugar diagnostic (FreeStyle Precision Joe Strips) Start: 12-15-2023 blood sugar diagnostic (FreeStyle Precision Joe Strips) Start: 12-15-2023 Clinical Notes 09-10-2021 to 06-01-2024 Jules Navas MD - 06/01/2024 9:00 AM EDT Note Date & Type Note Facility 08-21-2024 History of Present illness Narrative DATE: 06/01/2024 PROBLEM: lung CT Follow up DIAGNOSIS: stage 1a FIGO 2 [...] present, cervix not involved [facility] screening negative ER/[place]: negative 2. Chemotherapy with Carboplatin and taxol [...] ASPIRATION Negative for malignant cells. See comment. CT C/A/P-05/26/2024- IMPRESSION: Unchanged scattered pulmonary nodules since 03/03/2024. SUBJECTIVE: Magy reports that she feels well. No new symptoms since last visit 10/2023. Denies bleeding or pain. 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 OBJECTIVE: BP 155/65 Pulse 92 Temp 36.6 C (97.8 F) (Temporal) Resp 18 Wt 118.1 kg (260 lb 5.8 oz) SpO2 96% BMI 44.69 kg/m GEN: Comfortable ASSESSMENT: Magy Castro is a 68 year old female w history stage T1a FIGO 2 endometrial cancer, Endometrial cancer +LVI, MMR nl Limited staging 12/2015 ([facility]) HDRB c 04/2016 Chemo x 5 c 06/2016 CT AP reviewed showing unchanged perihepatic and RP lymph nodes compared to 09/2022 Pancreatic cyst: work up with EUS, cytology 02/2023 negative. Followed by GI . Pulmonary nodules Reviewed chest CT 05/26, pulmonary nodules unchanged compared to 02/2024. Recommend repeat CT in 6 months. PLAN: Follow-up in October [address] chest abd pelvis in 6 months Televisit to follow up repeat CT Jules Navas MD The previous note from Юлия Odom CNP on 11/04/2023 was copied forward and the necessary changes were made above. Scribe Attestation: By signing my name below, I, Avery Medina, attest that this documentation has been prepared under the direction and in the presence of Jules Navas MD. Electronically Signed: Avery Medina. June 01, 2024 9:15 AM. Medical Decision Making: Data: Unique test result(s) reviewed: 2 Risk: Low: Low risk from testing/treatment Medical Decision Making Level: 3 - Low documented in this encounter [facility] 06-01-2024 Note HNO ID: [id number] Author: JULES NAVAS MD Service: ? Author Type: Physician Type: Progress Notes Filed: 06/01/2024 09:22 Note Text: DATE: 06/01/2024 PROBLEM: lung CT Follow up DIAGNOSIS: stage 1a FIGO 2 [...] present, cervix not involved [facility]NPCC screening negative [place]: negative 2. Chemotherapy with Carboplatin and taxol [...] ASPIRATION Negative for malignant cells. See comment. CT C/A/P-05/26/2024- IMPRESSION: Unchanged scattered pulmonary nodules since 03/03/2024. SUBJECTIVE: Magy reports that she feels well. No new symptoms since last visit 10/2023. Denies bleeding or pain. 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 OBJECTIVE: BP 155/65 Pulse 92 Temp 36.6 ?C (97.8 ?F) (Temporal) Resp 18 Wt 118.1 kg (260 lb 5.8 oz) SpO2 96% BMI 44.69 kg/m? GEN: Comfortable ASSESSMENT: Magy Castro is a 68 year old female w history stage T1a FIGO 2 endometrial cancer, Endometrial cancer +LVI, MMR nl Limited staging 12/2015 ([facility]) HDRB c 04/2016 Chemo x 5 c 06/2016 CT AP reviewed showing unchanged perihepatic and RP lymph nodes compared to 09/2022 Pancreatic cyst: work up with EUS, cytology 02/2023 negative. Followed by GI . Pulmonary nodules Reviewed chest CT 05/26, pulmonary nodules unchanged compared to 02/2024. Recommend repeat CT in 6 months. PLAN: Follow-up in October [address] chest abd pelvis in 6 months Televisit to follow up repeat CT Jules Navas MD The previous note from Юлия Odom CNP on 11/04/2023 was copied forward and (more content not included)... [facility] 05-30-2024 Evaluation note Authored May 30, 2024 8: 55am The above note written by Ozzie TEIXEIRA acting as human recorder, note dictated by Dr. Sherman Larson. [facility] Work Phone: 1(410) 657-190608-15-2024 History of Present illness Narrative* Mamie Mckenzie RN - 05/26/2024 9:15 AM EDT Radiology Service Progress Note DATE OF SERVICE: May 26, 2024 TIME: 9:09 AM PATIENT WEIGHT: 258LBS PATIENT IDENTITY VERIFICATION COMPLETED USING TWO (2) STANDARD IDENTIFIERS: Name and Date of confirmed by patient verbally. FALL SCREENING: Has the patient had 2 falls in the last year or 1 fall with injury or currently using an Ambulatory Assistive Device (Walker, Cane, Wheelchair, Crutches, etc.)? Yes, Patient High Riskfor Falls What interventions were put in place to prevent falls during this visit? Instructed Patient to Callfor Help if Needed, Offered Assistance with Transfers/Clothing, and Instructed Patient to Remain Seated (Not on Exam Table) Until Exam PATIENT GENDER DATA: Female. status: : No status: NO. ALLERGIES: Reviewed and unchanged CONTRAST ALLERGY: No EXAM: CT -CONTRAST INDUCED NEPHROPATHY RISK FACTORS: Patient age > 60 years CREATININE: Creatinine Date Value Ref Range Status 04/28/2024 0.63 0.58 - 0.96 mg/dL Final 03/10/2024 0.69 0.58 - 0.96 mg/dL Final 03/03/2024 0.69 0.58 - 0.96 mg/dL Final Estimated Glomerular Filtration Rate Date Value Ref Range Status 04/28/2024 96 >=60 mL/min/1.73m Final Comment: Estimated Glomerular Filtration Rate (eGFR) is calculated using the 2020 CKD-EPI creatinine equation. This equation utilizes serum creatinine, sex, and age as parameters. The creatinine assay has traceable calibration to isotope dilution- mass spectrometry. Refer to KDIGO guidelines for clinical interpretation. In patients with unstable renal function, e.g. those with acute kidney injury, the eGFRmay not accurately reflect actual GFR. eGFR- Date Value Ref Range Status 09/13/2021 Duplicate request Final Comment: Account Credited DUPLICATE ORDER MW [id number] P.O.C.T. RESULTS: POC done: Yes, See Lab Tab May 26, 2024 TREATMENT: N/A IV SITE: Ambulatory: A peripheral IV was started in the Left antecubital site with a Angio cath: 22gauge. IV SITE APPEARANCE: Clean,Dry and Intact SIGNATURE: Mamie Mckenzie RN PATIENT NAME: Magy Castro DATE: May 26, 2024 TIME: 9:09 AM * Juwan Mckinney, RT(R) - 05/26/2024 9:15 AM EDT Radiology Service Progress Note PATIENT NAME: Magy Castro DATE OF SERVICE: May 26, 2024 TIME: 9:35 AM PATIENT IDENTITY VERIFICATION COMPLETED USING TWO (2) IDENTIFIERS: Name and Date of confirmedby patient verbally. FALL SCREENING: Has the patient had 2 falls in the last year or 1 fall with injury or currently using an Ambulatory Assistive Device (Walker, Cane, Wheelchair, Crutches, etc.)? No PATIENT GENDER DATA: Female. status: : No status: NO. PATIENT RELEVANT IMPLANT DATA REVIEWED: Not Applicable PATIENT PRESENTS WITH AN IMPLANTABLE OR ATTACHED BASTING PULLER: No RADIOLOGY DEPARTMENT: CT; Exam(s) Completed: Chest PERIPHERAL IV DATA: Site assessment: Clean,Dry and Intact, Site disposition Discontinued SIGNED BY: RT Eugenia(Moy) May 26, 2024 9:35 AM [facility] NoteHNO ID: [id number] Author: JUWAN MCKINNEY RT(Moy) Service: ? Author Type: Technologist Type: Progress Notes Filed: 05/26/2024 09:36 Note Text: Radiology Service Progress Note PATIENT NAME: Magy Castro DATE OF SERVICE: May 26, 2024 TIME: 9:35 AM PATIENT IDENTITY VERIFICATION COMPLETED USING TWO (2) IDENTIFIERS: Name and Date of confirmed by patient verbally. FALL SCREENING: Has the patient had 2 falls in the last year or 1 fall with injury or currently using an Ambulatory Assistive Device (Walker, Cane, Wheelchair, Crutches, etc.)? No PATIENT GENDER DATA: Female. status: : No status: NO. PATIENT RELEVANT IMPLANT DATA REVIEWED: Not Applicable PATIENT PRESENTS WITH AN IMPLANTABLE OR ATTACHED BASTING PULLER: No RADIOLOGY DEPARTMENT: CT; Exam(s) Completed: Chest PERIPHERAL IV DATA: Site assessment: Clean,Dry and Intact, Site disposition Discontinued SIGNED BY: RT Eugenia(Moy) May 26, 2024 9:35 [facility]08-15-2024 NoteHNO ID: [id number] Author: MAMIE MCKENZIE RN Service: ? Author Type: Registered Nurse Type: Progress Notes Filed: 05/26/2024 09:10 Note Text: Radiology Service Progress Note DATE OF SERVICE: May 26, 2024 TIME: 9:09 AM PATIENT WEIGHT: 258LBS PATIENT IDENTITY VERIFICATION COMPLETED USING TWO (2) STANDARD IDENTIFIERS: Name and Date of confirmed by patient verbally. FALL SCREENING: Has the patient had 2 falls in the last year or 1 fall with injury or currently using an Ambulatory Assistive Device (Walker, Cane, Wheelchair, Crutches, etc.)? Yes, Patient High Risk for Falls What interventions were put in place to prevent falls during this visit? Instructed Patient to Call for Help if Needed, Offered Assistance with Transfers/Clothing, and Instructed Patient to Remain Seated (Not on Exam Table) Until Exam PATIENT GENDER DATA: Female. status: : No status: NO. ALLERGIES: Reviewed and unchanged CONTRAST ALLERGY: No EXAM: CT -CONTRAST INDUCED NEPHROPATHY RISK FACTORS: Patient age > 60 years CREATININE: Creatinine Date Value Ref Range Status 04/28/2024 0.63 0.58 - 0.96 mg/dL Final 03/10/2024 0.69 0.58 - 0.96 mg/dL Final 03/03/2024 0.69 0.58 - 0.96 mg/dL Final Estimated Glomerular Filtration Rate Date Value Ref Range Status 04/28/2024 96 >=60 mL/min/1.73m? Final Comment: Estimated Glomerular Filtration [...] Final Comment: Account Credited DUPLICATE ORDER MW [id number] P.O.C.T. RESULTS: POC done: Yes, See Lab Tab May 26, 2024 TREATMENT: N/A IV SITE: Ambulatory: A peripheral IV was started in the Left antecubital site with a Angio cath: 22 gauge. IV SITE APPEARANCE: Clean,Dry and Intact SIGNATURE: Mamie Mckenzie RN PATIENT NAME: Magy Castro DATE: May 26, 2024 TIME: 9:09 [facility]07-16-2024 Telephone encounter Note* Telephone Encounter - Lavinia Campoverde RN - 04/26/2024 12:11 PM EDT Pt is scheduled for a scan on 05/26. An updated cre is needed prior to scan. Pended order needs signed thanks! Lavinia Campoverde RN [facility]07-16-2024 Miscellaneous Notes* Telephone Encounter - Lavinia Campoverde RN - 04/26/2024 12:11 PM EDT Pt is scheduled for a scan on 05/26. An updated cre is needed prior to scan. Pended order needs signed thanks! Lavinia Campoverde RN documented [facility] Telephone encounter Note * Telephone Encounter - Юлия Odom APRN.CNP - 04/11/2024 11:46 AM EDT Spoke w patient about recommendation to get a repeat CT scan in May (3 months from last one) to follow up on lung nodule given IR unable to safely biopsy at this time. Will also arrange for a follow up w following scans to discuss results and next steps. She prefers to have CT scans and follow ups be completed at [facility]. Patient comfortable w above plan. [facility]07-01-2024 Miscellaneous Notes* Telephone Encounter - Юлия Odom APRN.CNP - 04/11/2024 11:46 AM EDT Spoke w patient about recommendation to get a repeat CT scan in May (3 months from last one) to follow up on lung nodule given IR unable to safely biopsy at this time. Will also arrange for a follow up w following scans to discuss results and next steps. She prefers to have CT scans and follow ups be completed at [facility]. Patient comfortable w above plan. documented in this encounter[facility]06-[facility]-2024 NoteHNO ID: [id number] Author: JOSE DE JESUS YUAN RT(R) Service: Radiology Author Type: Technologist Type: Progress Notes Filed: 03/29/2024 09:46 Note Text: Radiology Service Progress Note PATIENT NAME: Magy Castro DATE OF SERVICE: March 29, 2024 TIME: 9:37 AM PATIENT IDENTITY VERIFICATION COMPLETED USING TWO (2) IDENTIFIERS: Name and Date of confirmed by patient verbally and Name and Date of confirmed by identification band. FALL SCREENING: Has the patient had 2 falls in the last year or 1 fall with injury or currently using an Ambulatory Assistive Device (Walker, Cane, Wheelchair, Crutches, etc.)? No PATIENT GENDER DATA: Female. status: : No status: NO. PATIENT RELEVANT IMPLANT DATA REVIEWED: Yes PATIENT PRESENTS WITH AN IMPLANTABLE OR ATTACHED BASTING PULLER: n/a RADIOLOGY DEPARTMENT: Biopsy PERIPHERAL IV DATA: Not applicable SIGNED BY: RT Jose A(R) March 29, 2024 9:37 [facility]06-14-2024 History of Present illness Narrative* Lavinia Campoverde RN - 03/25/2024 7:45 AM EDT Radiology Service Progress Note DATE OF SERVICE: March 25, 2024 TIME: 7:49 AM PATIENT WEIGHT: 117kg PATIENT IDENTITY VERIFICATION COMPLETED USING TWO (2) [...] 58 years and Diabetic: Yes. Current medication(s): Metformin. Patient currently has insulin pump?: No. CREATININE: Creatinine Date Value Ref Range Status 03/10/2024 0.69 0.58 - 0.96 mg/dL Final 03/03/2024 0.69 0.58 - 0.96 mg/dL Final 09/11/2022 0.59 0.58 - 0.96 mg/dL Final Estimated Glomerular Filtration Rate Date Value Ref Range Status 03/10/2024 93 >=60 mL/min/1.73m Final Comment: Estimated Glomerular Filtration Rate (eGFR) is calculated using the 2020 CKD-EPI creatinine equation. This equation utilizes serum creatinine, sex, and age as parameters. The creatinine assay has traceable calibration to isotope dilution- mass spectrometry. Refer to KDIGO guidelines for clinical interpretation. In patients with unstable renal function, e.g. those with acute kidney injury, the eGFRmay not accurately reflect actual GFR. eGFR- Date Value Ref Range Status 09/13/2021 Duplicate request Final Comment: Account Credited DUPLICATE ORDER MW [id number] P.O.C.T. RESULTS: POC done: Yes, See Lab Tab 2023 TREATMENT: No Hydration needed. IV SITE: Ambulatory: A peripheral IV was started in the Left antecubital site with a Angio cath: 20gauge. IV SITE APPEARANCE: Clean,Dry and Intact SIGNATURE: Lavinia Campoverde RN PATIENT NAME: Magy Castro DATE: March 25, 2024 TIME: 7:49 AM * Juwan Mckinney, RT(R) - 03/25/2024 7:45 AM EDT Radiology Service Progress Note PATIENT NAME: Magy Castro DATE OF SERVICE: March 25, 2024 TIME: 8:33 AM PATIENT IDENTITY VERIFICATION COMPLETED USING TWO (2) IDENTIFIERS: Name and Date of confirmedby patient verbally. FALL SCREENING: Has the patient had 2 falls in the last year or 1 fall with injury or currently using an Ambulatory Assistive Device (Walker, Cane, Wheelchair, Crutches, etc.)? No PATIENT GENDER DATA: Female. status: : No status: NO. PATIENT RELEVANT IMPLANT DATA REVIEWED: Not Applicable PATIENT PRESENTS WITH AN IMPLANTABLE OR ATTACHED BASTING PULLER: No RADIOLOGY DEPARTMENT: CT; Exam(s) Completed: Abdomen/Pelvis PERIPHERAL IV DATA: Site assessment: Clean,Dry and Intact, Site disposition Discontinued SIGNED BY: MARIALUISA Bello) March 25, 2024 8:33 AM documented in this encounterMer[facility]06-[facility]24 NoteHNO ID: [id number] Author: JUWAN MCKINNEY RT (R) Service: ? Author Type: Technologist Type: Progress Notes Filed: 03/25/2024 08:33 Note Text: Radiology Service Progress Note PATIENT NAME: Magy Castro DATE OF SERVICE: March 25, 2024 TIME: 8:33 AM PATIENT IDENTITY VERIFICATION COMPLETED USING TWO (2) IDENTIFIERS: Name and Date of confirmed by patient verbally. FALL SCREENING: Has the patient had 2 falls in the last year or 1 fall with injury or currently using an Ambulatory Assistive Device (Walker, Cane, Wheelchair, Crutches, etc.)? No PATIENT GENDER DATA: Female. status: : No status: NO. PATIENT RELEVANT IMPLANT DATA REVIEWED: Not Applicable PATIENT PRESENTS WITH AN IMPLANTABLE OR ATTACHED BASTING PULLER: No RADIOLOGY DEPARTMENT: CT; Exam(s) Completed: Abdomen/Pelvis PERIPHERAL IV DATA: Site assessment: Clean,Dry and Intact, Site disposition Discontinued SIGNED BY: RT Eugenia(Moy) March 25, 2024 8:33 [facility]06-14-2024 NoteHNO ID: [id number] Author: LAVINIA CAMPOVERDE RN Service: ? Author Type: Registered Nurse Type: Progress Notes Filed: 03/25/2024 07:50 Note Text: Radiology Service Progress Note DATE OF SERVICE: March 25, 2024 TIME: 7:49 AM PATIENT WEIGHT: 117kg PATIENT IDENTITY VERIFICATION COMPLETED USING TWO (2) [...] 58 years and Diabetic: Yes. Current medication(s): Metformin. Patient currently has insulin pump?: No. CREATININE: Creatinine Date Value Ref Range Status 03/10/2024 0.69 0.58 - 0.96 mg/dL Final 03/03/2024 0.69 0.58 - 0.96 mg/dL Final 09/11/2022 0.59 0.58 - 0.96 mg/dL Final Estimated Glomerular Filtration Rate Date Value Ref Range Status 03/10/2024 93 >=60 mL/min/1.73m? Final Comment: Estimated Glomerular Filtration [...] Final Comment: Account Credited DUPLICATE ORDER MW [id number] P.O.C.T. RESULTS: POC done: Yes, See Lab Tab 2023 TREATMENT: No Hydration needed. IV SITE: Ambulatory: A peripheral IV was started in the Left antecubital site with a Angio cath: 20 gauge. IV SITE APPEARANCE: Clean,Dry and Intact SIGNATURE: Lavinia Campoverde RN PATIENT NAME: Magy Castro DATE: March 25, 2024 TIME: 7:49 [facility]06-05-2024 Telephone encounter Note* Telephone Encounter - Cortney Coronel - 03/16/2024 5:19 PM EDT Spoke to pt and scheduled biopsy for 03/29/24. [facility]06-05-2024 Miscellaneous Notes* Telephone Encounter - Cortney Coronel - 03/16/2024 5:19 PM EDT Spoke to pt and scheduled biopsy for 03/29/24. * Telephone Encounter - Beltran Romano MD - 03/09/2024 3:05 PM EDT RADIOLOGIST REQUEST / APPROVAL FORM STAFF RADIOLOGIST: Rosalina/Yara PROCEDURE TO BE DONE UNDER: CT PROCEDURE REQUESTED: FNA or core biopsy requested of a pulmonary nodule. There are a few pulmonary nodules. The nodule to biopsy is at the discretion of the radiologist. The likely best target to biopsy is in the right lower lobe. PROCEDURE: Approved TIME SLOT NEEDED: 1 Hour NOTES: This procedure will likely be challenging given the relatively small size of the nodules andtheir location. Please check CBC prior to the procedure (which I have ordered). An INR was recentlyobtained. SPECIAL LABS/ PROCESSING: None. Pre-procedure labs: CBC: ordered INR: not needed COVID: not needed SIR Bleeding risk category for this procedure: Percutaneous lung biopsy 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-high risk. Reference from [facility]: [email or web address]/documents/?[email or web address] STAFF SIGNATURE: Beltran Romano MD DATE: March 09, 2024 TIME: 3:05 PM * Telephone Encounter - Betzy Hernandez LPN - 03/08/2024 8:44 AM EDT BX. COORDINATOR INFORMATION LAB RESULTS: INR (no units) Date Value 03/03/2024 1.0 No results found for: APTT Platelet Count (k/uL) Date Value 11/25/2017 223 Current Outpatient Medications Medication Sig FIASP FLEXTOUCH [...] daily. For Investigational Drug Use Only. PI: Jules Swan, PhD. Take one capsule by mouth daily for 3 months prior to surgery and 3 months after surgery. enteric contrast (will be provided with radiology test) For CT CHESTABD/PEL W IVCON Routine order Administer, As Directed One Time Only, via Oral, Rectal, both Oral and Rectal, Enteric Tube, Stoma orIndwelling Catheter, Enteric Contrast as designated per enteric contrast guidelines enteric contrast (will be provided with radiology [...] No current facility-administered medications for this visit. ALLERGIES No Known Allergies FILMS SENT TO WORKSTATION: GUIDELINES FOR HOLDING ANTI-PLATELET AND ANTI- COAGULATION THERAPY: none on file NURSE SIGNATURE: Betzy Hernandez LPN DATE: March 08, 2024 TIME: 8:44 AM * Telephone Encounter - Jamia White - 03/08/2024 8:17 AM EDTSummary: Lung BX RADIOLOGY CALL CENTER INTAKE DATE: 03/08/2024 TIME: 8:17am REQUESTING STAFF: Юлия Odom APRN.[facility] PHONE/PAGER: : [phone] SPECIFICS OF THE REQUEST:Lung BX SPECIAL REQUESTS: TISSUE SAMPLE, LABWORK: N/A IS THIS REQUEST PART OF A RESEARCH PROTOCOL: No MEDICAL DIAGNOSIS: Lung nodules [R91.8] TYPE AND DATE OF THE EXAM THAT IS THE BASIS OF THE REQUEST: CT Date: 03/03/2024 IMAGING: [facility] Note to all persons requesting biopsies: All biopsy requests will be scheduled as quickly as possible, based on the clinical urgency, availability of appointment times, the need to hold anti-thrombolytic therapy (aspirin, blood thinners) and the patient s schedule, including the need for an available refuse driver. If a percutaneous biopsy or drainage is not felt to be safe or an alternative method for establishing a diagnosis is possible, this will be discussed directly with the requesting physician. documented in this encounterMer[facility]05-[facility] Telephone encounter Note * Telephone Encounter - Beltran Romano MD - 03/09/2024 3:05 PM EDT RADIOLOGIST REQUEST / APPROVAL FORM STAFF RADIOLOGIST: Rosalina/Yara PROCEDURE TO BE DONE UNDER: CT PROCEDURE REQUESTED: FNA or core biopsy requested of a pulmonary nodule. There are a few pulmonary nodules. The nodule to biopsy is at the discretion of the radiologist. The likely best target to biopsy is in the right lower lobe. PROCEDURE: Approved TIME SLOT NEEDED: 1 Hour NOTES: This procedure will likely be challenging given the relatively small size of the nodules andtheir location. Please check CBC prior to the procedure (which I have ordered). An INR was recentlyobtained. SPECIAL LABS/ PROCESSING: None. Pre-procedure labs: CBC: ordered INR: not needed COVID: not needed SIR Bleeding risk category for this procedure: Percutaneous lung biopsy 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-high risk. Reference from [facility]: [email or web address]/documents/?[email or web address] STAFF SIGNATURE: Beltran Romano MD DATE: March 09, 2024 TIME: 3:05 PM [facility]-28-[facility] Telephone encounter Note* Telephone Encounter - Betzy Hernandez LPN - 03/08/2024 8:44 AM EDT BX. COORDINATOR INFORMATION LAB RESULTS: INR (no units) Date Value 03/03/2024 1.0 No results found for: APTT Platelet Count (k/uL) Date Value 11/25/2017 223 Current Outpatient Medications Medication Sig FIASP FLEXTOUCH [...] daily. For Investigational Drug Use Only. PI: Jules Swan, PhD. Take one capsule by mouth daily for 3 months prior to surgery and 3 months after surgery. enteric contrast (will be provided with radiology test) For CT CHESTABD/PEL W IVCON Routine order Administer, As Directed One Time Only, via Oral, Rectal, both Oral and Rectal, Enteric Tube, Stoma orIndwelling Catheter, Enteric Contrast as designated per enteric contrast guidelines enteric contrast (will be provided with radiology [...] mouth once daily. Every other day per No current facility-administered medications for this visit. ALLERGIES No Known Allergies FILMS SENT TO WORKSTATION: GUIDELINES FOR HOLDING ANTI-PLATELET AND ANTI- COAGULATION THERAPY: none on file NURSE SIGNATURE: Betzy Hernandez LPN DATE: March 08, 2024 TIME: 8:44 AM [facility] Telephone encounter Note* Telephone Encounter - Jamia White - 03/08/2024 8:17 AM EDTSummary: Lung BX RADIOLOGY CALL CENTER INTAKE DATE: 03/08/2024 TIME: 8:17am REQUESTING STAFF: Юлия Odom APRN.[facility] PHONE/PAGER: : [phone] SPECIFICS OF THE REQUEST:Lung BX SPECIAL REQUESTS: TISSUE SAMPLE, LABWORK: N/A IS THIS REQUEST PART OF A RESEARCH PROTOCOL: No MEDICAL DIAGNOSIS: Lung nodules [R91.8] TYPE AND DATE OF THE EXAM THAT IS THE BASIS OF THE REQUEST: CT Date: 03/03/2024 IMAGING: [facility] Note to all persons requesting biopsies: All biopsy requests will be scheduled as quickly as possible, based on the clinical urgency, availability of appointment times, the need to hold anti-thrombolytic therapy (aspirin, blood thinners) and the patient s schedule, including the need for an available refuse driver. If a percutaneous biopsy or drainage is not felt to be safe or an alternative method for establishing a diagnosis is possible, this will be discussed directly with the requesting physician. [facility]05-[facility] History of Present illness Narrative* Mamie Mckenzie RN - 03/03/2024 8:45 AM EDT Radiology Service Progress Note DATE OF SERVICE: March 03, 2024 TIME: 8:49 AM PATIENT WEIGHT: 259LBS PATIENT IDENTITY VERIFICATION COMPLETED USING TWO (2) [...] RISK FACTORS: Patient age > 60 years CREATININE: Creatinine Date Value Ref Range Status 09/11/2022 0.59 0.58 - 0.96 mg/dL Final 09/13/2021 Duplicate request 0.58 - 0.96 mg/dL Final Comment: Account Credited DUPLICATE ORDER [id number] 09/13/2021 0.70 0.58 - 0.96 mg/dL Final Estimated Glomerular Filtration Rate Date Value Ref Range Status 09/11/2022 98 >=60 mL/min/1.73m Final Comment: Estimated Glomerular Filtration Rate (eGFR) is calculated using the 2020 CKD-EPI creatinine equation. This equation utilizes serum creatinine, sex, and age as parameters. The creatinine assay has traceable calibration to isotope dilution- mass spectrometry. Refer to KDIGO guidelines for clinical interpretation. In patients with unstable renal function, e.g. those with acute kidney injury, the eGFRmay not accurately reflect actual GFR. eGFR- Date Value Ref Range Status 09/13/2021 Duplicate request Final Comment: Account Credited DUPLICATE ORDER MW [id number] P.O.C.T. RESULTS: POC done: Yes, See Lab Tab March 03, 2024 TREATMENT: N/A IV SITE: Ambulatory: A peripheral IV was started in the Left antecubital site with a Angio cath: 20gauge. IV SITE APPEARANCE: Clean,Dry and Intact SIGNATURE: Mamie Mckenzie RN PATIENT NAME: Magy Castro DATE: March 03, 2024 TIME: 8:49 AM * Juwan Mckinney, RT(R) - 03/03/2024 8:45 AM EDT Radiology Service Progress Note PATIENT NAME: Magy Castro DATE OF SERVICE: March 03, 2024 TIME: 10:18 AM PATIENT IDENTITY VERIFICATION COMPLETED USING TWO (2) IDENTIFIERS: Name and Date of confirmedby patient verbally. FALL SCREENING: Has the patient had 2 falls in the last year or 1 fall with injury or currently using an Ambulatory Assistive Device (Walker, Cane, Wheelchair, Crutches, etc.)? No PATIENT GENDER DATA: Female. status: : No status: NO. PATIENT RELEVANT IMPLANT DATA REVIEWED: Not Applicable PATIENT PRESENTS WITH AN IMPLANTABLE OR ATTACHED BASTING PULLER: No RADIOLOGY DEPARTMENT: CT; Exam(s) Completed: Chest PERIPHERAL IV DATA: Site assessment: Clean,Dry and Intact, Site disposition Discontinued SIGNED BY: RT Eugenia(R) March 03, 2024 10:18 AM documented in this encounterMer[facility]24 Miscellaneous Notes* Result Encounter Note - Alley Augustin PA-C - 03/03/2024 8:45 AM EDT Hi Debbie, Your labs are normal. Thank you, Alley Augustin PA-C documented in this encounterMer[facility]05-23-2024 NoteHNO ID: [id number] Author: JUWAN MCKINNEY RT(R) Service: ? Author Type: Technologist Type: Progress Notes Filed: 03/03/2024 10:19 Note Text: Radiology Service Progress Note PATIENT NAME: Magy Castro DATE OF SERVICE: March 03, 2024 TIME: 10:18 AM PATIENT IDENTITY VERIFICATION COMPLETED USING TWO (2) IDENTIFIERS: Name and Date of confirmed by patient verbally. FALL SCREENING: Has the patient had 2 falls in the last year or 1 fall with injury or currently using an Ambulatory Assistive Device (Walker, Cane, Wheelchair, Crutches, etc.)? No PATIENT GENDER DATA: Female. status: : No status: NO. PATIENT RELEVANT IMPLANT DATA REVIEWED: Not Applicable PATIENT PRESENTS WITH AN IMPLANTABLE OR ATTACHED BASTING PULLER: No RADIOLOGY DEPARTMENT: CT; Exam(s) Completed: Chest PERIPHERAL IV DATA: Site assessment: Clean,Dry and Intact, Site disposition Discontinued SIGNED BY: Juwan Mckinney, RT(R) March 03, 2024 10:18 [facility]05-23-2024 NoteHNO ID: [id number] Author: MAMIE MCKENZIE RN Service: ? Author Type: Registered Nurse Type: Progress Notes Filed: 03/03/2024 08:50 Note Text: Radiology Service Progress Note DATE OF SERVICE: March 03, 2024 TIME: 8:49 AM PATIENT WEIGHT: 259LBS PATIENT IDENTITY VERIFICATION COMPLETED USING TWO (2) [...] RISK FACTORS: Patient age > 60 years CREATININE: Creatinine Date Value Ref Range Status 09/11/2022 0.59 0.58 - 0.96 mg/dL Final 09/13/2021 Duplicate request 0.58 - 0.96 mg/dL Final Comment: Account Credited DUPLICATE ORDER MW [id number] 09/13/2021 0.70 0.58 - 0.96 mg/dL [...] Final Comment: Account Credited DUPLICATE ORDER MW [id number] P.O.C.T. RESULTS: POC done: Yes, See Lab Tab March 03, 2024 TREATMENT: N/A IV SITE: Ambulatory: A peripheral IV was started in the Left antecubital site with a Angio cath: 20 gauge. IV SITE APPEARANCE: Clean,Dry and Intact SIGNATURE: Mamie Mckenzie RN PATIENT NAME: Magy Castro DATE: March 03, 2024 TIME: 8:49 [facility]05-23-2024 Progress note* Result Encounter Note - Alley Augustin PA-C - 03/03/2024 8:45 AM EDT Hi Debbie, Your labs are normal. Thank you, Alley Augustin PA-C [facility] Work Phone: 1(196) 424-128205-08-2024 Instructions* Patient Instructions* Alley Augustin PA-C - 02/17/2024 11:34 AM EDT Thank you for seeing me in clinic today. It was very nice to meet you! As we discussed, my recommendations are as follows: Have MRI of pancreas completed Labwork Discuss with PCP if you need to hold your metformin prior to MRI Complete cologuard screening test If you have any questions about the above treatment plan, please do not hesitate to send me a [employer] message or call. Alley Augustin PA-C documented in this encounterMer[facility]05-08-2024 History of Present illness Narrative* Alley Augustin PA-C - 02/17/2024 11:00 AM EDT DEPARTMENT OF GASTROENTEROLOGY - FOLLOW UP REASON FOR VISIT Magy Castro is a 68 year old female who is scheduled for follow up of pancreatic cyst HISTORY OF PRESENT ILLNESS Magy Castro is a 68 year old female who presents today for follow up of pancreatic cyst. Historyof endometrial stage II carcinoma. On routine follow up CT scan there was noted to be 1.5x1.0cm cystic lesion in pancreatic body without dilated pancreatic duct. MRCP 10/23/2022 showed 12 x7 x5 mm lobulated cystic mass without mass lesion or pancreatic duct dilatation. EUS was negative for malignancy. Appearance was suspicious for serous cystoadenoma. She currently denies any abdominal pain, jaundice, scleral icterus, nausea, vomiting, unintentional weight loss,, chills, night sweats, change in bowel habit. She has never had a colonoscopy. No BRBPR, melena. Pertinent Workup to Date: EUS 02/2023 - A cystic lesion was seen in [...] MRCP in 1 year based on cytopathology. Pathology negative for malignancy. Suspected serous cystadenoma. Repeat MRCP in one year was recommended. I have personally reviewed labs, current medication, allergies, PMH, PSH, family history and socialhistory. Pertinent information has been listed above. Brother of pancreatic cancer at age 51. Denies Smoking, etoh, illicits, NSAIDs PAST MEDICAL HISTORY Diagnosis Date Diabetes (HCC) Mixed hyperlipidemia 12/21/2015 Morbid obesity (HCC) 12/21/2015 Periumbilical hernia containing loop of small bowel Pulmonary emboli (HCC) right lower lobe Pulmonary nodules bilateral subcentimeter PAST SURGICAL HISTORY Procedure Laterality Date APPENDECTOMY RSO? LAPAROSCOPY SURG CHOLECYSTECTOMY PAST SURGICAL HISTORY OF 11/30/15 D&C, hysteroscopy TUBAL LIGATION HX Allergies: No Known Allergies Current Outpatient Medications Medication Sig Dispense Refill FIASP FLEXTOUCH U-100 INSULIN 100 unit/mL (3 [...] daily. For Investigational Drug Use Only. PI: Jules Swan, PhD. Take one capsule by mouth [...] protocol in the CT contrast administration guidelines link.1 Each 0 enteric contrast (will be provided with radiology test) For CT CHESTABD/PEL W IVCON Routine order Administer, As Directed One Time Only, via Oral, Rectal, both Oral and Rectal, Enteric Tube, Stoma orIndwelling Catheter, Enteric Contrast as designated per enteric contrast guidelines 1 Each 0 iv contrast (will be provided with radiology [...] protocol in the CT contrast administration guidelines link.1 Each 0 enteric contrast (will be provided with radiology test) For CT CHESTABD/PEL W IVCON Routine order Administer, As Directed One Time Only, via Oral, Rectal, both Oral and Rectal, Enteric Tube, Stoma orIndwelling Catheter, Enteric Contrast as designated per enteric contrast guidelines 1 Each 0 metFORMIN (GLUCOPHAGE) 1,000 mg tablet Take 1,000 [...] No current facility-administered medications for this visit. Social History Tobacco Use Smoking status: Never Smokeless tobacco: Never Vaping Use Vaping Use: Never used Substance Use Topics Alcohol use: No Drug use: No FAMILY HISTORY Problem Relation Age of Onset Pancreatic Cancer Brother Stroke Paternal Grandmother other (Leukemia [Other]) Paternal Grandfather Crohn's Disease Son Colon Cancer No Family History REVIEW OF SYSTEMS Cardiovascular: No chest pain Respiratory: Negative for cough, wheezing and shortness of breath Gastrointestinal : See above Psychiatric: No problems PHYSICAL EXAMINATION There were no vitals taken for this visit. Constitutional: well nourished, well appearing. NAD. Alert and cooperative Skin: no jaundice Eyes: anicteric, normal conjunctiva ENT: MMM Pulmonary: easy and nonlabored on RA Abdomen: soft, NT, ND. No ascites. MSK: MAEx4 Extremities: no edema Neuro: aaox3. No asterixis. Psych: appropriate mood and behavior Lab Results Component Value Date WBC 7.11 11/25/2017 HCT 42.3 11/25/2017 MCV 88.3 11/25/2017 PLT 223 11/25/2017 Lab Results Component Value Date NA 141 07/01/2016 K 4.2 07/01/2016 CO2 22 07/01/2016 BUN 12 07/01/2016 Lab Results Component Value Date ALT 24 12/21/2015 AST 16 12/21/2015 ALKPHOS 67 12/21/2015 Assessment IMPRESSION Ms. Castro is a 68 year old female who presents for follow up of serous cystadenoma. Asymptomatic. Will plan for MRCP for surveillance. Also has never had colorectal cancer screening, she does not wantcolonoscopy at this time but would be willing to complete Cologuard. PLAN -Schedule MRCP -Discussed with PCP if she needs to hold metformin prior to MRCP -Cologuard ordered Alley Augustin PA-C documented in this encounterMer[facility]05-08-2024 NoteHNO ID: [id number] Author: ALLEY AUGUSTIN PA-C Service: ? Author Type: Physician Platform Man Type: Progress Notes Filed: 02/17/2024 12:06 Note Text: DEPARTMENT OF GASTROENTEROLOGY - FOLLOW UP REASON FOR VISIT Magy Castro is a 68 year old female who is scheduled for follow up of pancreatic cyst HISTORY OF PRESENT ILLNESS Magy Castro is a 68 year old female who presents today for follow up of pancreatic cyst. History of endometrial stage II carcinoma. On routine follow up CT scan there was noted to be 1.5x1.0cm cystic lesion in pancreatic body without dilated pancreatic duct. MRCP 10/23/2022 showed 12 x7 x5 mm lobulated cystic mass without mass lesion or pancreatic duct dilatation. EUS was negative for malignancy. Appearance was suspicious for serous cystoadenoma. She currently denies any abdominal pain, jaundice, scleral icterus, nausea, vomiting, unintentional weight loss,, chills, night sweats, change in bowel habit. She has never had a colonoscopy. No BRBPR, melena. Pertinent Workup to Date: EUS 02/2023 - A cystic lesion was seen in [...] MRCP in 1 year based on cytopathology. Pathology negative for malignancy. Suspected serous cystadenoma. Repeat MRCP in one year was recommended. I have personally reviewed labs, current medication, allergies, PMH, PSH, family history and social history. Pertinent information has been listed above. Brother of pancreatic cancer at age 51. Denies Smoking, etoh, illicits, NSAIDs PAST MEDICAL HISTORY Diagnosis Date Diabetes (HCC) Mixed hyperlipidemia 12/21/2015 Morbid obesity (HCC) 12/21/2015 Periumbilical hernia containing loop of small bowel Pulmonary emboli (HCC) right lower lobe Pulmonary nodules bilateral subcentimeter PAST SURGICAL HISTORY Procedure Laterality Date APPENDECTOMY RSO? LAPAROSCOPY SURG CHOLECYSTECTOMY PAST SURGICAL HISTORY OF 11/30/15 DANDC, hysteroscopy TUBAL LIGATION HX Allergies: No Known Allergies Current Outpatient Medications Medication Sig Dispense Refill FIASP FLEXTOUCH U-100 INSULIN 100 unit/mL (3 [...] daily. For Investigational Drug Use Only. PI: Jules Swan, PhD. Take one capsule by mouth [...] contrast administration guidelines link. 1 Each 0 enteric contrast (will be provided with radiology test) For CT CHESTABD/PEL W IVCON Routine order Administer, As Directed One Time Only, via Oral, Rectal, both Oral and Rectal, Enteric Tube, Stoma or Indwelling Catheter, Enteric Contrast as designated per enteric contrast guidelines 1 Each 0 iv contrast (will be provided with radiology [...] contrast administration guidelines link. 1 Each 0 enteric contrast (will be provided with radiology test) For CT CHESTABD/PEL W IVCON Routine order Administer, As Directed One Time Only, via Oral, Rectal, both Oral and Rectal, Enteric Tube, Stoma or Indwelling Catheter, Enteric Contrast as designated per enteric con (more content not included)...[facility]05-06-2024 Telephone encounter Note* Telephone Encounter - Mamie Mckenzie RN - 02/15/2024 1:23 PM EDT Please sign pended Cre for upcoming CT Thank You! Mamie Mckenzie RN [facility]05-06-2024 Miscellaneous Notes* Telephone Encounter - Mamie Mckenzie RN - 02/15/2024 1:23 PM EDT Please sign pended Cre for upcoming CT Thank You! Mamie Mckenzie RN documented in this encounterMer[facility]01-24-2024 NoteHNO ID: [id number] Author: ЮЛИЯ ODOM APRN.COMPUTER ASSISTANT Service: ? Author Type: Nurse Practitioner Type: [...] present, cervix not involved HNPCC screening negative [place]: negative 2. Chemotherapy with Carboplatin and taxol [...] cancer, +LVI, MMR nl Limited staging 12/2015 ([facility]) HDRB c 04/2016 Chemo x 5 c 06/2016 Pancreatic cyst work up with EUS, cytology 02/2023 negative. Followed by GI . PLAN: - doing well, exam normal - previous CT chest 09/2022 with lung nodules-will repeat now. - health maintenance up to date-mammogram completed at [facility] jul 2023-negative - continue fol (more content not included)...[id number] Evaluation note* Encounter Date Diagnosis Assessment Notes Treatment Notes Treatment Clinical Notes Oct, Pancreatic cyst (ICD-10 - K86.2) Pancreatic cyst adenoma has [facility] with [facility] pathology results. Oct, History of uterine cancer (ICD-10 - Z85.42) The [facility] surgical dressing maker Юлия Odom. Oct, Venous insufficiency (ICD-10 - I87.2) The patient encouraged continuing plan of care as instructed by the [place] [facility].The patient [...] Blood work ordered today to evaluate coagulopathies. [employer] Other 11-29-2023 Evaluation note* Encounter Date Diagnosis Assessment Notes Treatment Notes Treatment Clinical Notes Aug, Type 2 diabetes mellitus (ICD-10 - E11.9) Managing type 2 diabetes material was published 1. Uncontrolled, Type 2 diabetes A1C 8.3% 2. Blood glucose levels above target. According to [employer] 2 cgm download 08/27/2023- 023 Avg glucose [...] abnormalities (ICD-10 - L98.9) Referral to dermatology [facility] [employer] Other 11-29-2023 Evaluation note* Encounter Date Diagnosis Assessment Notes Treatment Notes Treatment Clinical Notes Aug, Skin abnormalities (ICD-10 - L98.9) [employer] [facility] [employer] Other 09-18-2023 Progress note Author Hien Poole [facility] June 29, 2023 9:41am Note Date/Time June 29, 2023 9:36am [facility] [address] [place] [address] Wound Center Provider Note Signed Patient: Magy Castro MR#: [id number] : 1955 Acct:[id number] Age/Sex: 67 / F Copies to: DO Hien Taylor, COMPANY MANAGER~ HPI Date of Visit Date of Visit: Date of Service: 06/29/2023 Time of Service: 09:35 Narrative HPI: 06/29/23 Debbie is a 67 year old female presenting to [facility] wound care for a follow up visit for eval and treatment of RLE ulcer that appear d/t venous and lymphedema etiologies. She has been a patient here in the past. Urgo k2 wrap will be used along with topical steroid and she will present here for dressings.We spoke about vascular and she did has been having her venous procedures in [place]. Weight loss and elevation and compression and [...] start?: Early May 2023 Mode of Arrival/ Group Art Supervisor: Personal vehicle Lives with:: Spouse Appetite Description: Within Normal Limits Who helps w/ dressing change?: Wound Care Dept Why Do You Need Help?: Can't Reach Ulcer Smoking Status: Never smoker [facility] Medical History (Updated 06/29/23 @ 09:36 [...] By: <Electronically signed by WALTER Poole> 06/29/2341 [facility] Work Phone: 1(940) 975-624309-11-2023 Progress note Author Hien Poole [facility] June 22, 2023 1:48pm Note Date/Time June 22, 2023 1:48pm [facility] [address] [place] [address] Wound Center Provider Note Signed Patient: Magy Castro MR#: [id number] : 1955 Acct:[id number] Age/Sex: 67 / F Copies to: Sherman Larson,DO Hien Poole APRN~ HPI Date of Visit Date of Visit: Date of Service: 06/22/2023 Time of Service: 13:44 Subjective Pain Right Lower Leg: Pain Intensity: 0 Wound/Ulcer History When did wound start?: Early May 2023 Mode of Arrival/ Group Art Supervisor: Personal vehicle Lives with:: Spouse Appetite Description: Within Normal Limits Who helps w/ dressing change?: Wound Care Dept Why Do You Need Help?: Can't Reach Ulcer Smoking Status: Never smoker [facility] Medical History (Updated 06/22/23 @ 13:46 [...] Appearance: Beefy Red, Epithelial Tissue or Bridge, [place] and Yellow Surrounding Tissue Appearance: Bright Red [...] <Electronically signed by WALTER Poole> 06/22/23 [address] [facility] Work Phone: 1(725) 419-227207-10-2023 Progress note Author Hien Poole [facility] April 20, 2023 9:12am Note Date/Time April 20, 2023 9:12 am [facility] [address] [place] [address] Wound Center Provider Note Signed Patient: Magy Castro MR#: [id number] : 1955 Acct:[id number] Age/Sex: 67 / F Copies to: Sherman Larson,DO Hien Poole APRN~ HPI Date of Visit Date of Visit: Date of Service: 04/20/2023 Time of Service: 09:10 Narrative HPI: 03/25/23 Debbie is a 67 year old female presenting to [facility] wound care for an initial visit for eval and treatment of BLE ulcers that appear d/t venous and lymphedema etiologies. She has been a patient here in the past. Unna wraps will be used along with topical steroid and coconut oil and she will present here fordressings. We spoke about vascular and she did have an ablation with Mian juan ago on the LLE but nothing on the RLE- we spoke about referring back and she said that he seemed disinterested in any further work being done on her legs- I asked if she would be interested in seeing the vascular group in [place] but she wants to wait at this [...] topically to the right leg, will do [facility] vein referral today, continues to take the horse chestnut and probiotics Subjective Pain Left Lower Leg: Pain Intensity: 0 Right Lower Leg: Pain Intensity: 0 Wound/Ulcer History When did wound start?: July 2022 Mode of Arrival/ Group Art Supervisor: Personal vehicle Lives with:: Spouse Appetite Description: Within Normal Limits Who helps w/ dressing change?: Wound Care Dept Why Do You Need Help?: Can't Reach Ulcer and Limited mobility Smoking Status: Never smoker [facility] Medical History (Updated 04/20/23 @ 09:10 [...] mg PO BID 14 days #28 caps 06/14/23 [Rx Confirmed 04/09/23] horse chestnut 300 mg [...] (and venous) Thickness: Skin Breakdown Bed Appearance: [place] Percent of Wound Bed Granulated/Red: 100 Percent of Devitalized: 0 Length (cm): 35.0 Width (cm): 40.0 Depth (cm): 0.1 CM Sq: 1400.000 Surrounding Tissue Appearance: Peeling and Dryness Surrounding Tissue Temp: Warm Drainage Amount: None Drainage Description: Serosanguineous Drainage Odor: No Odor Left Lower Leg: Type: Lymphedema (and venous) Thickness: Skin Breakdown Bed Appearance: [place] Percent of Wound Bed Granulated/Red: 100 Percent [...] By: <Electronically signed by WALTER Poole> 04/20/239[address] [facility] Work Phone: 1(875) 119-217406-29-2023 Progress note Author Hien Poole [facility] April 09, 2023 10:05am Note Date/Time April 09, 2023 10:0 5am [facility] [address] [place] [address] Wound Center Provider Note Signed Patient: Magy Castro MR#: [id number] : 1955 Acct:[id number] Age/Sex: 67 / F Copies to: Sherman Larson,DO Hien Poole APRN~ HPI Date of Visit Date of Visit: Date of Service: 04/09/2023 Time of Service: 10:00 Narrative HPI: 03/25/23 Debbie is a 67 year old female presenting to [facility] wound care for an initial visit [...] interested in seeing the vascular group in [place] but she wants to wait at this [...] wound start?: July 2022 Mode of Arrival/ Group Art Supervisor: Personal vehicle Lives with:: Spouse Appetite Description: Within Normal Limits Who helps w/ dressing change?: Wound Care Dept Why Do You Need Help?: Can't Reach Ulcer and Limited mobility Smoking Status: Never smoker [facility] Medical History (Updated 04/09/23 @ 10:04 [...] (and venous) Thickness: Skin Breakdown Bed Appearance: [place] Percent of Wound Bed Granulated/Red: 100 Percent of Devitalized: 0 Length (cm): 35.0 Width (cm): 40.0 Depth (cm): 0.1 CM Sq: 1400.000 Surrounding Tissue Appearance: Dryness Surrounding Tissue Temp: Warm Drainage Amount: Small Drainage Description: Serosanguineous Drainage Odor: No Odor Left Lower Leg: Type: Lymphedema (and venous) Thickness: Skin Breakdown Bed Appearance: Beefy Red, [place] and Yellow Percent of Wound Bed Granulated/Red: [...] <Electronically signed by WALTER Poole> 04/09/23 [address] [facility] Work Phone: 1(384) 289-978506-22-2023 Progress note Author Hien Poole [facility] April 02, 2023 9:18am Note Date/Time April 02, 2023 9:19 am [facility] [address] [place] [address] Wound Center Provider Note Signed Patient: Magy Castro MR#: [id number] : 1955 Acct:[id number] Age/Sex: 67 / F Copies to: Sherman Larson,DO Hien Poole APRN~ HPI Date of Visit Date of Visit: Date of Service: 04/02/2023 Time of Service: 09:16 Narrative HPI: 03/25/23 Debbie is a 67 year old female presenting to [facility] wound care for an initial visit [...] interested in seeing the vascular group in [place] but she wants to wait at this [...] wound start?: July 2022 Mode of Arrival/ Group Art Supervisor: Personal vehicle Lives with:: Spouse Appetite Description: Within Normal Limits Who helps w/ dressing change?: Wound Care Dept Why Do You Need Help?: Can't Reach Ulcer and Limited mobility Smoking Status: Never smoker [facility] Medical History (Updated 04/02/23 @ 09:18 [...] Appearance: Beefy Red, Epithelial Tissue or Bridge, [place] and Yellow Percent of Wound Bed Granulated/Red: 90 Percent of Devitalized: 10 Length (cm): 35.0 Width (cm): 40.0 Depth (cm): 0.1 CM Sq: 1400.000 Surrounding Tissue Appearance: Hyperpigmented Surrounding Tissue Temp: Warm Drainage Amount: Moderate Drainage Description: Serosanguineous Drainage Odor: No Odor Left Lower Leg: Type: Lymphedema (and venous) Thickness: Skin Breakdown Bed Appearance: Beefy Red, Epithelial Tissue or Bridge, [place] and Yellow Percent of Wound Bed Granulated/Red: [...] By: <Electronically signed by WALTER Poole> 04/02/[address] [facility] Work Phone: 1(675) 462-988806-14-2023 Progress note Author Hien Poole [facility] March 25, 2023 3:02pm Note Date/Time March 25, 2023 2:58 pm [facility] [address] [place] [address] Wound Center Provider Note Signed Patient: Magy Castro MR#: [id number] : 1955 Acct:[id number] Age/Sex: 67 / F Copies to: Sherman Larson,DO Hien Poole APRN~ HPI Date of Visit Date of Visit: Date of Service: 03/25/2023 Time of Service: 14:52 Narrative HPI: 03/25/23 Debbie is a 67 year old female presenting to [facility] wound care for an initial visit [...] interested in seeing the vascular group in [place] but she wants to wait at this [...] wound start?: July 2022 Mode of Arrival/ Group Art Supervisor: Personal vehicle Lives with:: Spouse Appetite Description: Within Normal Limits Who helps w/ dressing change?: Wound Care Dept Why Do You Need Help?: Can't Reach Ulcer and Limited mobility Smoking Status: Never smoker [facility] Medical History (Updated 03/25/23 @ 14:54 [...] Appearance: Beefy Red, Epithelial Tissue or Bridge, [place] and Yellow Percent of Wound Bed Granulated/Red: 90 Percent of Devitalized: 10 Length (cm): 35.0 Width (cm): 40.0 Depth (cm): 0.1 CM Sq: 1400.000 Surrounding Tissue Appearance: Hyperpigmented Surrounding Tissue Temp: Warm Drainage Amount: Moderate Drainage Description: Serosanguineous Drainage Odor: No Odor Left Lower Leg: Type: Lymphedema (and venous) Thickness: Skin Breakdown Bed Appearance: Beefy Red, Epithelial Tissue or Bridge, [place] and Yellow Percent of Wound Bed Granulated/Red: [...] <Electronically signed by WALTER Poole> 03/25/23 1502 [facility] Work Phone: 1(655) 655-769205-11-2023 Nurse Note* Lakhwinder Payan RN - 02/19/2023 [...] None REFERRAL (RECOMMENDATION): None documented in this encounterMer[facility] History and physical note * Lior [...] daily. For Investigational Drug Use Only. PI: Jules Swan, PhD. Take one capsule by mouth [...] 2:04 PM Source Note - Christophe Shaffer APRN.COMPUTER ASSISTANT - 02/02/2023 8:00 AM EDT Images from the original note were not included. PREANESTHESIA CONSULT CLINIC TELEHEALTH VISIT Patient has been identified by name and date of : Yes This is a virtual visit using Genbook video visit. It require patient-provider interaction for [...] daily. For Investigational Drug Use Only. PI: Jules Swan, PhD. Take one capsule by mouth [...] fevers. Neuro: No history of TIA's, stroke, CENTRAL SUPPLY MANAGER tumor, impaired sensorium, hemiplegia, paraplegia or quadraplegia. No neurological symptoms or problems. Respiratory: No history of current cough or dyspnea, or pneumonia in the past 6 weeks. No history of respiratory/pulmonary symptoms or problems. Cardiovascular: Positive for: DVT/PE, HLD, Negative for Recent ME, Angina, Arrhythmia, CAD, Chest Pain, CHF, HTN, PVD, Valvular Heart Disease GI: SEE HPI Negative for GERD, Nausea, Vomiting, Abdominal pain, Hepatitis, Liver disease, Pancreatitis, Colon cancer, Rectal cancer : No history of dysuria, frequency or incontinence,, stones or chronic kidney disease COMMUNITY AFFAIRS DIRECTOR: Negative for abnormal vaginal bleeding, abnormal vaginal [...] insulin glargine (LANTUS) Follow by endo Dr. Lay Mapus [facility] Patient reports last A1C was 7.4, to [...] device. I spent more than 21-40 minutes [id number] with the patient and over half the time was devoted tocounseling and/or coordination of care. This is a virtual visit. It required patient-provider interaction for the medical decision making as documented above. SIGNATURE: Christophe Shaffer APRN.CNP PATIENT NAME: Magy Castro DATE: February 02, 2023 TIME: 8:45 AM PAGER/CONTACT #: documented in this encounterMer[facility]05-02-2023 Evaluation note* Encounter Date Diagnosis Assessment Notes Treatment Notes Treatment Clinical Notes February, Type 2 diabetes mellitus (ICD-10 - E11.9) Managing type 2 diabetes material was published 1. Uncontrolled, Type 2 diabetes A1C 7.3% 2. Blood glucose levels improved. According to Bitstamp 2 cgm download 01/28/2023-02/10/2023 Avg glucose 160. [...] hyperglycemia, or diabetes medication issues. 6. Prescriptions: [employer] MAIL ORDER/CARLOS PIZANO: None at this time. [...] High blood pressure material was published February, medical terminologist current use of insulin (ICD-10 - Z79.4) February, B12 deficiency (ICD-10 - E53.8) Good food sources of vitamin B12 material was published 03/2022 Vit b12 >1400 February, BMI 45.0-49.9, adult (ICD-10 - Z68.42) Setting weight-loss goals material was published [employer] Other [id number] Miscellaneous Notes* Telephone Encounter - Orville Lazcano LPN - 02/04/2023 11:44 AM EDTSummary: External Lab Results Scanned into patients chart documented in this encounterMercy [facility]04-25-2023 Miscellaneous Notes* Telephone Encounter - Heidi Mcdonald RN - 02/03/2023 1:19 PM EDT Attempted to call pt, no answer. Left detailed voice msg regarding msg below. Instructed to call back with any questions. Heidi Mcdonald RN * Telephone Encounter - Lior Linton MD - 02/03/2023 7:22 AM EDT MRCP images were reviewed. The images were downloaded to [facility] and the MRI was done at [facility]. Agree with the findings of the report. Cystic lesion in the body of the pancreas measuring around 12 mm lobulated without obvious communication with the pancreatic duct. This could represent mucinous cystadenoma versus IPMN. EUS is scheduled 02/19/2023. Lior Linton MD * Telephone Encounter - Heidi Mcdonald RN - 01/22/2023 12:18 PM EDT MRI images available for review. Heidi Mcdonald RN ----- Message ----- From: Heidi Mcdonald RN Sent: 01/13/2023 10:46 AM EDT To: Heidi Mcdonald RN Spoke with pt. She will obtain MRCP disc from [facility] and send to our office. Heidi Mcdonald RN ----- Message ----- From: Lior Linton MD Sent: 01/12/2023 5:41 PM EDT To: MARCEL Love: Please let me know when the MRCP disc is loaded into [facility] for my review. documented in this encounterMercy Health [facility]04-24-2023 Instructions* Patient Instructions* Christophe Shaffer APRN.COMPUTER ASSISTANT - 02/02/2023 8:36 AM EDT PATIENT PREOPERATIVE INSTRUCTIONS Lior Linton MD has scheduled you for your procedure at this surgery center: [facility]: [phone] --[address] [address]. Please check in on the1st floor at [...] Procedures: - YOU MUST HAVE A RESPONSIBLE GUEST HISTORY CLERK TAKE YOU HOME. A SALES PLANNER OR DIRECTOR SUPPLIER QUALITY CANNOT BE MADE A RESPONSIBLE GUEST HISTORY CLERK. - We recommend that a responsible person [...] Advance Directive, please fax a copy to [phone] or email to for it to be [...] day. Christophe Shaffer APRN.CNP documented in this encounterMercy Health [facility]04-24-2023 History and physical note * Christophe Shaffer APRN.CNP - 02/02/2023 8:00 AM EDT Images from the original note were not included. PREANESTHESIA CONSULT CLINIC TELEHEALTH VISIT Patient has been identified by name and date of : Yes This is a virtual visit using Genbook video visit. It require patient-provider interaction for [...] daily. For Investigational Drug Use Only. PI: Jules Swan, PhD. Take one capsule by mouth [...] fevers. Neuro: No history of TIA's, stroke, CENTRAL SUPPLY MANAGER tumor, impaired sensorium, hemiplegia, paraplegia or quadraplegia. No neurological symptoms or problems. Respiratory: No history of current cough or dyspnea, or pneumonia in the past 6 weeks. No history of respiratory/pulmonary symptoms or problems. Cardiovascular: Positive for: DVT/PE, HLD, Negative for Recent ME, Angina, Arrhythmia, CAD, Chest Pain, CHF, HTN, PVD, Valvular Heart Disease GI: SEE HPI Negative for GERD, Nausea, Vomiting, Abdominal pain, Hepatitis, Liver disease, Pancreatitis, Colon cancer, Rectal cancer : No history of dysuria, frequency or incontinence,, stones or chronic kidney disease COMMUNITY AFFAIRS DIRECTOR: Negative for abnormal vaginal bleeding, abnormal vaginal [...] device. I spent more than 21-40 minutes [id number]-bn-lvor with the patient and over half the time was devoted tocounseling and/or coordination of care. This is a virtual visit. It required patient-provider interaction for the medical decision making as documented above. SIGNATURE: Christophe Shaffer APRN.CNP PATIENT NAME: Magy Castro DATE: February 02, 2023 TIME: 8:45 AM PAGER/CONTACT #: documented in this encounterMercy Health [facility]03-29-2023 History and physical note * Lior [...] alcohol. 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. Her brother age 51 from [...] daily. For Investigational Drug Use Only. PI: Jules Swan, PhD. Take one capsule by mouth [...] (primary diagnosis) The MRCP was done at [facility]. I will review the images after they are downloaded to [facility]. We will schedule the patient for EUS with possible FNA especially with the strong family history ofpancreatic cancer. - EGD - THERAPEUTIC, EUS, OR TUBE INTERVENTIONS 2. Family history of pancreatic cancer - ICD9: V16.0, ICD10: Z80.0 Brother at age 51 from engine maintenance mechanic cancer. He was not smoker or alcoholic. 3. History of endometrial cancer - ICD9: V10.42, ICD10: Z85.42 History of endometrial cancer stage II diagnosed 2016 and treated with surgery followed by chemo and radiation. Lior Linton MD, FACP documented in this encounterMercy Health [facility]01-24-2023 Evaluation note* Encounter Date Diagnosis Assessment Notes Treatment Notes Treatment Clinical Notes Oct, Type 2 diabetes mellitus (ICD-10 - E11.9) Managing type 2 diabetes material was published 1. Uncontrolled, Type 2 diabetes A1C 7.9% 2. Blood glucose levels improved. According to Bitstamp 2 cgm download 10/22/2022- Avg glucose 173. [...] last visit, continue with weight loss efforts [employer] Other 01-19-2023 Miscellaneous Notes* Telephone Encounter - Lance Bautista Pss - 10/30/2022 11:33 AM EST Spoke with patient and she is scheduled for @ 9:[address] Linton for O/V. Thanks Medardo * Telephone Encounter - Heidi Mcdonald RN - 10/30/2022 11:18 AM EST Medardo is supposed to call pt today to schedule in biliary pancreas clinic on 11/19/2022. Heidi Mcdonald RN * Telephone Encounter - Jules Norton - 10/30/2022 11:09 AM EST Pt saw Dr. Rowland, at [facility] and was given Dr. Linton's name to schedule a ERCP?Dr. Rowland does not do ERCPs Pt stated that Dr. Rowland has sent over pt's medical records?! Pt can be reached at Thanks documented in this encounterMercy [facility]12-14-2022 Evaluation note* Encounter Date Diagnosis Assessment [...] a (ICD-10 - C54.1) Pt reports the RAMP LEAD at the cancer center ordered a CT to monitor her carcinoma. She is to continue to follow with her yearly, and we will continue to monitor. Sep, Screening for osteoporosis (ICD-10 - Z13.820) Review of pt's dexa scan, which is normal. 14 Sep, 2022 Pancreatic abnormality (ICD-10 - Q45.3) Review of [...] blood work was ordered to monitor this. [employer] Other 12-07-2022 History of Present illness Narrative* Юлия Odom APRN.[facility] - 09/17/2022 9:40 AM EST DATE: [...] present, cervix not involved HNPCC screening negative ER/[place]: negative 2. Chemotherapy with Carboplatin and taxol [...] maintenance up to date-mammogram [facility] - continue follow up with PCP - RTC in 12 months, sooner prn for issues/concerns. Юлия Odom APRN.[facility]INCE Medical Decision Making: Problems: Low: Stable chronic illness Data: Unique test result(s) reviewed: 1 Risk: Low: Low risk from testing/treatment Medical Decision Making Level: 3 - Low documented in this encounterMercy Health [facility]11-02-2022 Miscellaneous Notes* Telephone Encounter - Lavinia Godfrey RN - 08/13/2022 10:56 AM EDT Please sign pending Cre order for Magy Castro for upcoming CT with contrast on 09/11/22. Thank you. Lavinia Godfrey RN documented in this encounterMercy [facility]10-10-2022 Evaluation note* Encounter Date Diagnosis Assessment Notes Treatment Notes Treatment Clinical Notes Jul, Type 2 diabetes mellitus (ICD-10 - E11.9) Managing type 2 diabetes material was published 1. Uncontrolled, Type 2 diabetes A1C 8.2% 2. Blood glucose levels above target. According to mirta 2 cgm download 07/08/2022-07/21/20 22 Avg glucose [...] High blood pressure material was published Jul, medical terminologist current use of insulin (ICD-10 - Z79.4) Jul, B12 deficiency (ICD-10 - E53.8) Good food sources of vitamin B12 material was published 03/2022 Vit b12 >1400 Jul, BMI 45.0-49.9, adult (ICD-10 - Z68.42) Setting weight-loss goals material was published [employer] Other 06-29-2022 Evaluation note* Encounter Date Diagnosis Assessment Notes Treatment Notes Treatment Clinical Notes Mar, Type 2 diabetes mellitus (ICD-10 - E11.9) Managing type 2 diabetes material was published 1. Uncontrolled, Type 2 diabetes A1C 7.1% 2. Blood glucose levels above target. According to Bitst[employer] 2 cgm download 03/27/2022- 2 Avg glucose [...] High blood pressure material was published Mar, medical terminologist current use of insulin (ICD-10 - Z79.4) Mar, B12 deficiency (ICD-10 - E53.8) Good food sources of vitamin B12 material was published 03/2022 Vit b12 >1400 Mar, BMI 45.0-49.9, adult (ICD-10 - Z68.42) Making healthy choices at restaurants material was published [employer] Other 06-14-2022 Evaluation note* Encounter Date Diagnosis Assessment Notes Treatment Notes Treatment Clinical Notes Mar, Sinus congestion (ICD-10 - R09.81) [employer] Other 04-20-2022 Evaluation note* Encounter Date Diagnosis Assessment Notes Treatment Notes Treatment Clinical Notes Jan, Type 2 diabetes mellitus (ICD-10 - E11.9) [employer] Other 03-09-2022 Evaluation note* Encounter Date Diagnosis Assessment Notes Treatment Notes Treatment Clinical Notes Dec, Type 2 diabetes mellitus (ICD-10 - E11.9) Managing type 2 diabetes material was published 1. Controlled, Type 2 diabetes A1C 7% 2. Blood glucose levels improved. According to Bitstamp 2 cgm download 12/05/2021-12/18/2021 Avg glucose 157. [...] pattern. Reviewed with pt option of downloading [employer] kiera to help with carb counting. Pt [...] u100 x1 pen given. Sent fiasp to [employer]. 7. Reviewed with pt if right great [...] High blood pressure material was published Dec, medical terminologist current use of insulin (ICD-10 - Z79.4) Dec, B12 deficiency (ICD-10 - E53.8) Good food sources of vitamin B12 material was published 04/2021 Vit b12 211 on supplement Dec, BMI 45.0-49.9, adult (ICD-10 - Z68.42) Making healthy choices at restaurants material was published Dec, Hypoglycemia associated with type 2 diabetes mellitus (ICD-10 - E11.649) Low blood glucose and diabetes material was published [employer] Other 01-07-2022 Evaluation note* Encounter Date Diagnosis Assessment Notes Treatment Notes Treatment Clinical Notes Oct, Cough (ICD-10 - R05.9) [employer] Other 12-13-2021 Evaluation note* Encounter Date Diagnosis [...] Sep, Vitamin D deficiency (ICD-10 - E55.9) [employer] Other 11-30-2021 Evaluation note* Encounter Date Diagnosis Assessment Notes Treatment Notes Treatment Clinical Notes Aug, Type 2 diabetes mellitus (ICD-10 - E11.9) Managing type 2 diabetes material was published 1. Uncontrolled, Type 2 diabetes A1C 7.2% 2. Blood glucose levels improved, above target. According to Bit[employer] 2 cgm download 08/28/2021- 021 Avg glucose [...] medication issues. 6. Prescriptions: Victoza sent to [facility]. Aug, Dietary counseling and surveillance (ICD-10 - Z71.3) Eat well, exercise well, be well: dietary and fitness guidelines material was published Aug, Hyperlipidemia (ICD-10 - E78.5) Managing your cholesterol material was published 04/2021 ldl 75, trig. 164 on statin. Aug, HTN (hypertension) (ICD-10 - I10) High blood pressure material was published Aug, medical terminologist current use of insulin (ICD-10 - Z79.4) Aug, B12 deficiency (ICD-10 - E53.8) Good food sources of vitamin B12 material was published 04/2021 Vit b12 211 on supplement Aug, BMI 45.0-49.9, adult (ICD-10 - Z68.42) Making healthy choices at restaurants material was published Aug, Hypoglycemia associated with type 2 diabetes mellitus (ICD-10 - E11.649) Low blood glucose and diabetes material was published [employer] Other chief complaint+Reason for visit Narrative* Chief Complaint Referral [facility] Open Wound pt. Reason for Visit BMI 45.0-49.9, adult Diabetes mellitus, type 2 Dietary counseling and surveillance Hyperlipidemia Vitamin B 12 deficiency Diabetes mellitus, type 2 Dietary counseling and surveillance Exercise counseling Hyperlipidemia Severe obesity (BMI >= 40) Leg ulcer, left Wound infection Diabetes Edema Hemosiderin 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 Inflammation Lymphedema of both lower extremities Obesity Venous stasis of both lower extremities Cellulitis [facility] Work Phone: chief complaint+Reason for visit Narrative* Chief Complaint Referral [facility] Open Wound pt. see orders Reason for Visit Diabetes mellitus, t ype 2 Dietary counseling and surveillance Exercise counseling Hyperlipidemia Severe obesity (BMI >= 40) Leg ulcer, left Wound infection Diabetes Edema Hemosiderin 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 Inflammation Lymphedema of both lower extremities Obesity Venous stasis of both lower extremities Cellulitis [facility] Work Phone: chief complaint+Reason for visit Narrative* Chief Complaint Referral [facility] Open Wound pt. see orders meter Reason for Visit Diabetes mellitus, t ype 2 Dietary counseling and surveillance Exercise counseling Hyperlipidemia Severe obesity (BMI >= 40) Leg ulcer, left Wound infection Diabetes Edema Hemosiderin 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 Inflammation Lymphedema of both lower extremities Obesity Venous stasis of both lower extremities Cellulitis BMI 40.0-44.9, adult Diabetes mellitus, type 2 Dietary counseling and surveillance Hyperlipidemia Vitamin B 12 deficiency [facility] Work Phone: chief complaint+Reason for visit Narrative* Chief Complaint Referral [facility] Open Wound pt. see orders meter I87.2 Z85.42 Z83.2 Reason for Visit Diabetes mellitus, t ype 2 Dietary counseling and surveillance Exercise counseling Hyperlipidemia Severe obesity (BMI >= 40) Leg ulcer, left Wound infection Diabetes Edema Hemosiderin 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 Inflammation Lymphedema of both lower extremities Obesity Venous stasis of both lower extremities Cellulitis BMI 40.0-44.9, adult Diabetes mellitus, type 2 Dietary counseling and surveillance Hyperlipidemia Vitamin B 12 deficiency [facility] Work Phone: evaluation noteNo InformationNort [employer] Other evaluation noteNo assessment information available [facility] Work Phone: evaluation note* Diagnosis Malignant neoplasm of body of uterus, unspecified site (HCC)- Primary documented in this encounter [facility] HospitalEvalunemours foundation note* Diagnosis Encounter for follow-up surveillance of endometrial cancer- Primary Unspecified follow-up examination Pancreatic cyst Cyst and pseudocyst of pancreas Lung nodules Other nonspecific abnormal finding of lung field documented in this encounter [facility]* Diagnosis Pancreatic cyst- Primary Cyst and pseudocyst of pancreas Family history of pancreatic cancer Family history of malignant neoplasm of gastrointestinal tract History of endometrial cancer Personal history of malignant neoplasm of other parts of uterus documented in this encounter [facility]* Diagnosis Pre-op evaluation- Primary Preoperative examination, unspecified Type 2 diabetes mellitus without complication, unspecified whether residential insulin use (HCC) Mixed hyperlipidemia Endometrial cancer (HCC) Malignant neoplasm of corpus uteri, except isthmus Morbid obesity (HCC) Morbid obesity documented in this encounter [facility]* Diagnosis Pancreatic cyst Cyst and pseudocyst of pancreas documented in this encounter [facility]Evalun[facility] note* Diagnosis Onset Date Resolution Status Diabetes chronic Edema chronic 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 Inflammation chronic Lymphedema of both lower extremities chronic Obesity chronic Venous stasis of both lower extremities chronic Venous stasis ulcer of left lower extremity chronic Venous stasis ulcer of right lower extremity chronic [facility] Work Phone: evaluation note* Diagnosis Onset Date Resolution Status Diabetes chronic Edema chronic 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 Inflammation chronic Lymphedema of both lower extremities chronic Obesity chronic Venous stasis of both lower extremities chronic Candidiasis resolved Cellulitis resolved Venous stasis ulcer of left lower extremity resolved Venous stasis ulcer of right lower extremity resolved [facility] Work Phone: Evaluation note* Diagnosis Onset Date [...] stasis ulcer of right lower extremity resolved [facility] Work Phone: Evaluation note* Diagnosis Onset Date Resolution Status Diabetes chronic Edema chronic 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 Inflammation chronic Lymphedema of both lower extremities chronic Obesity chronic Venous stasis of both lower extremities chronic Candidiasis resolved Venous stasis ulcer of right lower extremity resolved [facility] Work Phone: Evaluation note* Diagnosis Endometrial ca (HCC)- Primary Malignant neoplasm of corpus uteri, except isthmus documented in this encounter [facility]* Diagnosis Abnormal results of liver function studies- Primary Nonspecific abnormal results of liver function study Cystadenoma Benign neoplasm of unspecified site Pancreatic cyst Cyst and pseudocyst of pancreas Screening for colon cancer Special screening for malignant neoplasms, colon documented in this encounter [facility]* Diagnosis Onset Date Resolution Status BMI 45.0-49.9, adult acute Diabetes mellitus, type 2 ac [place] Dietary counseling and surveillance acute Hyperlipidemia acute Vitamin B 12 deficiency acut e Diabetes mellitus, type 2 ac [place] Dietary counseling and surveillance acute Exercise counseling acute Hyperlipidemia acute Severe obesity (BMI >= 40) a cute Leg ulcer, left acute Wound infection acute Diabetes chronic Edema chronic 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 Inflammation chronic Lymphedema of both lower extremities chronic Obesity chronic Venous stasis of both lower extremities chronic Cellulitis resolved [facility] Work Phone: Evaluation note* Diagnosis Lung nodule seen on imaging study- Primary Solitary pulmonary nodule History of uterine cancer Personal history of malignant neoplasm of other parts of uterus Lung nodules Other nonspecific abnormal finding of lung field documented in this encounter [facility]Eval[facility] note* Diagnosis Onset Date Resolution Status Diabetes mellitus, type 2 ac [place] Dietary counseling and surveillance acute Exercise counseling acute Hyperlipidemia acute Severe obesity (BMI >= 40) a cute Leg ulcer, left acute Wound infection acute Diabetes chronic Edema chronic 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 Inflammation chronic Lymphedema of both lower extremities chronic Obesity chronic Venous stasis of both lower extremities chronic Cellulitis resolved [facility] Work Phone: Evaluation note* Diagnosis Onset Date Resolution Status Diabetes mellitus, type 2 ac [place] Dietary counseling and surveillance acute Exercise counseling acute Hyperlipidemia acute Severe obesity (BMI >= 40) a cute Leg ulcer, left acute Wound infection acute Diabetes chronic Edema chronic 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 Inflammation chronic Lymphedema of both lower extremities chronic Obesity chronic Venous stasis of both lower extremities chronic Cellulitis resolved BMI 40.0-44.9, adult acute Diabetes mellitus, type 2 ac [place] Dietary counseling and surveillance acute Hyperlipidemia acute Vitamin B 12 deficiency acut e [facility] Work Phone: Evaluation note* Diagnosis Lung nodules- Primary Other nonspecific abnormal finding of lung field documented in this encounter [facility] note* Diagnosis Endometrial ca (HCC)- Primary Malignant neoplasm of corpus uteri, except isthmus documented in this encounter [facility] note* Author Asia Merrill [facility] Authored May 30, 2024 8: 55am The above note written by Ozzie TEIXEIRA acting as human recorder, note dictated by Dr. Sherman Larson. [facility] Work Phone: Evaluation note* Diagnosis Pre-op evaluation- Primary Preoperative examination, unspecified Type 2 diabetes mellitus without complication, unspecified whether joint 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 controller insulin use (HCC) Mixed hyperlipidemia Endometrial cancer (HCC) Malignant neoplasm of corpus uteri, except isthmus Morbid obesity (HCC) Morbid obesity Encounter for follow-up surveillance of endometrial cancer- Primary Unspecified follow-up examination Pulmonary nodule Solitary pulmonary nodule Adenopathy Enlargement of lymph nodes documented in this encounter [facility] note* Diagnosis Pre-op evaluation- Primary Preoperative examination, unspecified Type 2 diabetes mellitus without complication, unspecified whether joint 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 controller insulin use (HCC) Mixed hyperlipidemia Endometrial cancer (HCC) Malignant neoplasm of corpus uteri, except isthmus Morbid obesity (HCC) Morbid obesity Lung nodules Other nonspecific abnormal finding of lung field documented in this encounter [facility] note* Diagnosis Pre-op evaluation- Primary Preoperative examination, unspecified Type 2 diabetes mellitus without complication, unspecified whether joint 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 controller insulin use (HCC) Mixed hyperlipidemia Endometrial cancer (HCC) Malignant neoplasm of corpus uteri, except isthmus Morbid obesity (HCC) Morbid obesity History of uterine cancer Personal history of malignant neoplasm of other parts of uterus Lung nodules Other nonspecific abnormal finding of lung field documented in this encounter [facility] note* Diagnosis Pre-op evaluation- Primary Preoperative examination, unspecified Type 2 diabetes mellitus without complication, unspecified whether residential insulin use (HCC) Mixed hyperlipidemia Endometrial cancer (HCC) Malignant neoplasm of corpus uteri, except isthmus Morbid obesity (HCC) Morbid obesity Lung nodules Other nonspecific abnormal finding of lung field Abnormal results of liver function studies Nonspecific abnormal results of liver function study documented in this encounter [facility] general Narrative - Reported* Type Description Date [...] 06/18/18 Surgical History Right Total Hip Replacement 2-5 -19 Hospitalization History See Above Hospitalization History Covid 19 10/16/20- [employer] Other [facility] general Narrative - Reported* Type Description Date [...] See Above Hospitalization History Covid 19 10/16/20- [employer] Other History general Narrative - Reported* Type Description [...] See Above Hospitalization History Covid 19 10/16/20- [employer] Other [facility] - [facility] Other Progress note Author Hien Poole [facility] April 30, 2023 9:07am Note Date/Time April 30, 2023 9:07 am [facility] [address] [place] [address] Wound Center Provider Note Signed Patient: Magy Castro MR#: [id number] : 1955 Acct:[id number] Age/Sex: 67 / F Copies to: Sherman Larson,DO Hien Poole, COMPANY MANAGER~ HPI Date of Visit Date of Visit: Date of Service: 04/30/2023 Time of Service: 09:05 Narrative HPI: 03/25/23 Debbie is a 67 year old female presenting to [facility] wound care for an initial visit [...] interested in seeing the vascular group in [place] but she wants to wait at this [...] wound start?: July 2022 Mode of Arrival/ 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 Diagnoses Pancreatic cyst Procedures EGD - THERAPEUTIC, EUS, OR TUBE INTERVENTIONS EGD INTRMURAL US NEEDLE ASPIRATE/[place] [address] [place] [address] [address] [address] [place] [address] Referral ID Status Reason Start Date Expiration Date Visits Requested Visits Authorized [id number] Authorized Auto-Generat ed Referral 01/07/2023 01/08/2024 1 1 [facility] for referral (narrative)* Outpatient Procedure (Routine) - Closed Specialty Diagnoses / Procedures Referred By Viky sue Referred To Contact [facility] Diagnoses Pancreatic cyst Procedures EGD - THERAPEUTIC, EUS, OR TUBE INTERVENTIONS EGD INTRMURAL US NEEDLE ASPIRATE/[place] [address] [place] [address] [facility] [address] [place] [address] Referral ID Status Reason Start Date Expiration Date V isits Requested Visits Authorized [id number] Closed Auto-Generate d Referral 01/07/2023 01/08/2024 1 1 [facility] for visit Narrative* Outpatient Procedure (Routine) - Closed Specialty Diagnoses / Procedures Referred By Contcharisma t Referred To Contact [facility] Diagnoses Pancreatic cyst Procedures EGD - THERAPEUTIC, EUS, OR TUBE INTERVENTIONS EGD INTRMURAL US NEEDLE ASPIRATE/[place] [address] [place] [address] [facility] [address] [place] [address] Referral ID Status Reason Start Date Expiration Date V isits Requested Visits Authorized [id number] Closed Auto-Generate d Referral 01/07/2023 01/08/2024 1 1 [facility] Chief Complaint and Reason for Visit [...] ulcer of right lower extremity Chief Complaint Dm E11.49 I87.2 6 Month Follow Up Chief Complaint pt. see orders meter I87.2 Z85.42 Z83.2 Open Wound review labs Reason for Visit Diabetes mellitus, t ype 2 Hyperlipidemia Vitamin B 12 deficiency Leg ulcer, left Diabetes Cellulitis Diabetes mellitus, type 2 Hyperlipidemia Leg ulcer, left Pulmonary nodules Uterine cancer Vitamin B 12 deficiency Chief Complaint review labs Open Wound 3 month f/u Reason for Visit Diabetes mellitus, t ype 2 Hyperlipidemia Leg ulcer, left Pulmonary nodules Uterine cancer Vitamin B 12 deficiency Leg ulcer, left Diabetes Cellulitis Diabetes mellitus, type 2 Hyperlipidemia Vitamin B 12 deficiency Advance Directives Advance Directive Response Recorded Date/ Time Advance Directives No June 9:19am Advance Directive Response Recorded Date/ Time Advance Directives No June 8:19am Advance Directive Response Recorded Date/ Time Advance Directives No November 10, 2023 2:03pm Reason for Referral Specialty Diagnoses / Procedures Referred By Viky sue Referred To Contact CT IMAGING Diagnoses History of uterine cancer Lung nodules Procedures CT ABD/PEL W IVCON CT ABD & PELVIS W/CONTRAST Юлия Odom, COMPANY MANAGER.COMPUTER ASSISTANT [address] [place] [id number] [facility] [place] [address] Referral ID Status Reason Start Date Expiration Date V isits Requested Visits Authorized [id number] Closed Auto-Generate d Referral 03/05/2024 04/04/2025 1 1 Specialty Diagnoses / Procedures Referred By Viky sue Referred To Contact CT IMAGING Diagnoses Encounter for follow-up surveillance of endometrial cancer Pulmonary nodule Adenopathy Procedures CT CHEST W IVCON DIAGNOSTIC COMPUTED TOMOGRAPHY THORAX W/CONTRAST Jules Navas MD [id number] [facility] [place] [address] Referral ID Status Reason Start Date Expiration Date Visits Requested Visits Authorized [id number] New Request Auto-Generat ed Referral 06/01/2024 07/01/2025 1 1 Specialty Diagnoses / Procedures Referred By Contac t Referred To Contact CT IMAGING Diagnoses Encounter for follow-up surveillance of endometrial cancer Pulmonary nodule Adenopathy Procedures CT ABD/PEL W IVCON CT ABD & PELVIS W/CONTRAST Jules Navas MD [address] [place] [address] [address] [facility] [place] [address] Referral ID Status Reason Start Date Expiration Date Visits Requested Visits Authorized [id number] New Request Auto-Generat ed Referral 06/01/2024 07/01/2025 1 1 Specialty Diagnoses / Procedures Referred By Contac t Referred To Contact CT IMAGING Diagnoses Lung nodules Procedures CT CHEST W IVCON DIAGNOSTIC COMPUTED TOMOGRAPHY THORAX W/CONTRAST Юлия Odom, COMPANY MANAGER.COMPUTER ASSISTANT [address] [place] [address] [address] [facility] [place] [address] Referral ID Status Reason Start Date Expiration Date Visits Requested Visits Authorized [id number] Authorized Auto-Generat ed Referral 04/11/2024 05/11/2025 1 1 Specialty Diagnoses / Procedures Referred By Contac t Referred To Contact MR IMAGING Diagnoses Cystadenoma Pancreatic cyst Procedures MRI 3D POST PROCESSING 3D RENDERING W/INTERP&POSTPROC DIFF WORK STATION Alley Augustin PA-C [address] [place] [address] Mr [facility] [place] [address] Referral ID Status Reason Start Date Expiration Date Visits Requested Visits Authorized [id number] Pending Review Auto-Generat ed Referral 02/17/2024 03/18/2025 1 1 Specialty Diagnoses / Procedures Referred By Contac t Referred To Contact MR IMAGING Diagnoses Abnormal results of liver function studies Procedures MRI PANC/KOBI WO/W IVCON MRI ABDOMEN W/O & W/CONTRAST MATERIAL Alley Augustin PA-C [address] [place] [id number] [place] [address] Referral ID Status Reason Start Date Expiration Date Visits Requested Visits Authorized [id number] Pending Review Auto-Generat ed Referral 02/17/2024 03/18/2025 1 1 Reason SKIN ABNORMALITIES Diagnosis 1 Skin abnormalities ( L98.9) Referral Organization [facility] Referring Provider First Name Rosanne Referring Provider Last Name Tim Referring Provider Specialty Nurse Pract itioner Referred Organization [facility] Referred Provider Chi Cordero Referred Address ,[place], [place],[address] Referred Provider Specialty Dermatology Referral Priority Routine Specialty Diagnoses / Procedures Referred By Viky sue Referred To Contact Gastroenterology Diagnoses Pancreatic cyst Procedures CONSULT TO GASTROENTEROLOGY OFFICE/OUTPATIENT NEW HIGH MDM 60-74 MINUTES Юлия Odom, COMPANY MANAGER.COMPUTER ASSISTANT [address] [place] [id number] Referral ID Status Reason Start Date Expiration Date Visits Requested Visits Authorized [id number] Authorized PCP Requested Referral 09/17/2022 09/17/2023 1 1 Family History No Family History Records Found Relationship Condition Age at Onset Recorded Date/T joann brother Unknown Family history of pancreatic cancer Unkno wn Malignant neoplasm Unknown father Hypertension Unknown Unknown Diabetes mellitus Unknown Not Specified Alzheimer's dementia Unknown sister Heart disease Unknown Hypertension Unknown Heterozygous factor V Leiden mutation Unk nown natural son Ulcerative colitis Unknown Relationship Condition Age at Onset Recorded Date/T joann brother Malignant neoplasm Unknown brother Unknown Family history of pancreatic cancer Unkno wn Malignant neoplasm Unknown father Hypertension Unknown Unknown Diabetes mellitus Unknown grandparent Unknown Not Specified Alzheimer's dementia Unknown Summary Purpose Additional Source Comments REASON FOR VISIT (unrecogniz ed section and content) Reason Comments Orders Reason Comments Established Patient Reason Comments New Patient Evaluation Reason Comments Imaging available for review Reason Comments Received Outside Medical Records Lab Res ults Reason Comments Recheck Reason Comments Lung bx Reason Comments Encounter for follow-up surveillance of endometrial cancer Reason Comments Radiology CT Specialty Diagnoses / Procedures Referred By Viky sue Referred To Contact CT IMAGING Diagnoses Lung nodules Procedures CT CHEST W IVCON DIAGNOSTIC COMPUTED TOMOGRAPHY THORAX W/CONTRAST Юлия Odom, COMPANY MANAGER.COMPUTER ASSISTANT [address] [place] [address] Ct Imaging [facility] Referral ID Status Reason Start Date Expiration Date V isits Requested Visits Authorized [id number] Closed Auto-Generate d Referral 04/11/2024 05/11/2025 1 1 Specialty Diagnoses / Procedures Referred By Viky sue Referred To Contact CT IMAGING Diagnoses History of uterine cancer Lung nodules Procedures CT ABD/PEL W IVCON CT ABD & PELVIS W/CONTRAST Юлия Odom APRN.COMPUTER ASSISTANT [address] [place] [address] [place] [address] Referral ID Status Reason Start Date Expiration Date V isits Requested Visits Authorized [id number] Closed Auto-Generate d Referral 03/05/2024 04/04/2025 1 1 Referral ID Status Reason Start Date Expiration Date V isits Requested Visits Authorized [id number] Closed Auto-Generate d Referral 11/04/2023 12/03/2024 1 1 Care Teams (unrecognized sec tion and content) Team Status: Active Member Role Status Dates Sherman Larson DO Primary Care Provider Active Team Status: Active Member Role Status Dates Sherman Larson DO Primary Care Provide r, Attending Provider Active Start: March 03, 2024 Team Status: Active Member Role Status Dates Sherman Larson DO Primary Care Provider Active Sta rt: March 10, 2024 LAQUITA Grimm Attending Provider Active Start: March 10, 2024 Team Status: Inactive Member Role Status Dates Sherman Larson DO Primary Care Provider Active Sta rt: March 11, 2024 End: March 11, 2024 Ann Echavarria Attending Provider Active Start: March 11, 2024 End: March 11, 2024 Team Status: Inactive Member Role Status Dates Sherman Larson DO Primary Care Provide r, Attending Provider Active Start: March 18, 2024 End: March 18, 2024 Rosanne Dumont APRN Referring Provider Active Start: March 18, 2024 End: March 18, 2024 Team Status: Inactive Member Role Status Dates Sherman Larson DO Primary Care Provider Active Sta rt: March 22, 2024 End: March 22, 2024 Rosanne Dumont APRN Attending Provider Active Start: March 22, 2024 End: March 22, 2024 Team Status: Inactive Member Role Status Dates Sherman Larson DO Primary Care Provide r, Attending Provider Active Start: March 22, 2024 End: March 22, 2024 Team Status: Active Member Role Status Dates Sherman Larson DO Primary Care Provider Active Sta rt: April 28, 2024 SHY GrimmC Attending Provider Active Start: April 28, 2024 Team Status: Active Member Role Status Dates Sherman Larson DO Primary Care Provider Active Sta rt: May 26, 2024 Hien Poole APRN Attending Provider Active St art: May 26, 2024 Team Status: Inactive Member Role Status Dates Sherman Larson DO Primary Care Provide r, Attending Provider Active Start: May 30, 2024 End: May 30, 2024 Team Status: Inactive Member Role Status Dates Rosanne Dumont APRN Attending Provider Active Start: September 09, 2023 End: September 09, 2023 Team Status: Inactive Member Role Status Dates Sherman Larson DO Primary Care Provide r, Attending Provider Active Start: September 09, 2023 End: September 09, 2023 Team Status: Inactive Member Role Status Dates Sherman Larson DO Primary Care Provider Active Sta rt: September 15, 2023 End: September 15, 2023 Judith Benitez RAMP LEAD-C Attending Provider Active Sta rt: September 15, 2023 End: September 15, 2023 Team Status: Inactive Member Role Status Dates Sherman Larson DO Attending Provider Active Start: October 19, 2023 End: October 19, 2023 Team Status: Active Member Role Status Dates Sherman Larson DO Primary Care Provider, Attending Provi regan Active Team Status: Inactive Member Role Status Dates Sherman Larson DO Primary Care Provider Active Judith Benitez RAMP LEAD-C Attending Provider Active Team Status: Inactive Member Role Status Dates Sherman Larson , Primary Care Provider Active Hien Poole APRN Attending Provider Active Team Status: Inactive Member Role Status Dates Sherman Larson DO Primary Care Provider Active Referral Self Attending Provider Active Team Status: Active Member Role Status Dates Sherman Larson , Primary Care Provider Active Hien Poole APRN Attending Provider Active Team Status: Inactive Member Role Status Dates Sherman Larson DO Primary Care Provider, Attending Provi regan Active Rosanne Dumont APRN Other Provider Active Team Status: Inactive Member Role Status Dates Sherman Larson , Primary Care Provider Active Dawn Sow DO Referring Provider Active Referral Self Attending Provider Active Team Status: Inactive Member Role Status Dates Sherman Larson DO Primary Care Provider, Attending Provi regan Active 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[employer] Relationship Specialty Start Date End Date Sherman Larson, [address] [phone] PCP - General Family Medicine 01/15/16 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[employer] Relationship Specialty Start Date End Date Sherman Larson, [address] [phone] PCP - General Family Medicine 01/15/16 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[employer] Relationship Specialty Start Date End Date Sherman Larson, [address] [address] PCP - General Family Medicine 01/15/16 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[employer] Relationship Specialty Start Date End Date Sherman Larson, DO [address] [place] [phone] PCP - General Family Medicine 01/15/16 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[employer] Relationship Specialty Start Date End Date Sherman Larson, DO [address] [place] [phone] PCP - General Family Medicine 01/15/16 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[employer] Relationship Specialty Start Date End Date Sherman Larson, [address] [phone] PCP - General Family Medicine 01/15/16 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[employer] Relationship Specialty Start Date End Date Sherman Larson, [address] [address] PCP - General Family Medicine 01/15/16 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[employer] Relationship Specialty Start Date End Date Sherman Larson DO [address] [place] [id number] PCP - General Family Medicine 01/15/16 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[employer] Relationship Specialty Start Date End Date Sherman Larson DO [address] [place] [address] PCP - General Family Medicine 01/15/16 Team Status: Inactive Member Role Status Dates Sherman Larson DO Primary Care Provider Active Sta rt: December 15, 2023 End: December 15, 2023 Rosanne Dumont APRN Attending Provider Active Start: December 15, 2023 End: December 15, 2023 Team Status: Inactive Member Role Status Dates Sherman Larson DO Primary Care Provider Active Sta rt: February 11, 2024 End: February 11, 2024 Jcarlos Prado DO Attending Provider Active St art: February 11, 2024 End: February 11, 2024 Team Status: Inactive Member Role Status Dates Sherman Larson DO Primary Care Provider Active Sta rt: February 23, 2024 End: February 23, 2024 LOVE Mathis Attending Provider Active Start: February 23, 2024 End: February 23, 2024 Team Status: Active Member Role Status Dates Sherman Larson DO Primary Care Provider Active Sta rt: March 08, 2024 Hien Poole APRN Attending Provider Active St art: March 08, 2024 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[employer] Relationship Specialty Start Date End Date Sherman Larson DO [address] [place] [address] PCP - General Family Medicine 01/15/16 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[employer] Relationship Specialty Start Date End Date Sherman Larson DO [address] [place] [address] PCP - General Family Medicine 01/15/16 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[employer] Relationship Specialty Start Date End Date Sherman Larson DO [address] [place] [address] PCP - General Family Medicine 01/15/16 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[employer] Relationship Specialty Start Date End Date Sherman Larson DO [address] [facility] [place] [address] PCP - General Family Medicine 01/15/16 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[employer] Relationship Specialty Start Date End Date Sherman Larson DO [address] [place] [facility] [place] [address] PCP - General Family Medicine 01/15/16 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[employer] Relationship Specialty Start Date End Date Sherman Larson DO [address] [place] [facility] [place] [address] PCP - General Family Medicine 01/15/16 Team Status: Active Member Role Status Dates Sherman Larson DO Primary Care Provider Active Sta rt: June 21, 2024 Hien Poole APRN Attending Provider Active St art: June 21, 2024 Team Status: Inactive Member Role Status Dates Sherman Larson DO Primary Care Provider Active Sta rt: June 28, 2024 End: June 28, 2024 Rosanne Dumont APRN Attending Provider Active Start: June 28, 2024 End: June 28, 2024 Goals (unrecognized section and content) Goals may be documented in a n alternate section Source Comments (unrecognize d section and content) In the event this informatio n is protected by the Federal Confidentiality of Alcohol and Drug Abuse Patient Records regulations: The Federal rules restrict any use of the information to criminally investigate or prosecute any alcohol or drug abuse patient.[facility] the event this information is protected by the Federal Confidentiality of Alcohol and Drug Abuse Patient Records regulations: The Federal rules restrict any use of the information to criminally investigate or prosecute any alcohol or drug abuse patient.[facility] the event this information is protected by the Federal Confidentiality of Alcohol and Drug Abuse Patient Records regulations: The Federal rules restrict any use of the information to criminally investigate or prosecute any alcohol or drug abuse patient.[facility] the event this information is protected by the Federal Confidentiality of Alcohol and Drug Abuse Patient Records regulations: The Federal rules restrict any use of the information to criminally investigate or prosecute any alcohol or drug abuse patient.[facility] the event this information is protected by the Federal Confidentiality of Alcohol and Drug Abuse Patient Records regulations: The Federal rules restrict any use of the information to criminally investigate or prosecute any alcohol or drug abuse patient.[facility] the event this information is protected by the Federal Confidentiality of Alcohol and Drug Abuse Patient Records regulations: The Federal rules restrict any use of the information to criminally investigate or prosecute any alcohol or drug abuse patient.[facility] the event this information is protected by the Federal Confidentiality of Alcohol and Drug Abuse Patient Records regulations: The Federal rules restrict any use of the information to criminally investigate or prosecute any alcohol or drug abuse patient.[facility] the event this information is protected by the Federal Confidentiality of Alcohol and Drug Abuse Patient Records regulations: The Federal rules restrict any use of the information to criminally investigate or prosecute any alcohol or drug abuse patient.[facility] the event this information is protected by the Federal Confidentiality of Alcohol and Drug Abuse Patient Records regulations: The Federal rules restrict any use of the information to criminally investigate or prosecute any alcohol or drug abuse patient.[facility] the event this information is protected by the Federal Confidentiality of Alcohol and Drug Abuse Patient Records regulations: The Federal rules restrict any use of the information to criminally investigate or prosecute any alcohol or drug abuse patient.[facility] the event this information is protected by the Federal Confidentiality of Alcohol and Drug Abuse Patient Records regulations: The Federal rules restrict any use of the information to criminally investigate or prosecute any alcohol or drug abuse patient.[facility] the event this information is protected by the Federal Confidentiality of Alcohol and Drug Abuse Patient Records regulations: The Federal rules restrict any use of the information to criminally investigate or prosecute any alcohol or drug abuse patient.[facility] the event this information is protected by the Federal Confidentiality of Alcohol and Drug Abuse Patient Records regulations: The Federal rules restrict any use of the information to criminally investigate or prosecute any alcohol or drug abuse patient.[facility] HospitalIn the event this information is protected by the Federal Confidentiality of Alcohol and Drug Abuse Patient Records regulations: The Federal rules restrict any use of the information to criminally investigate or prosecute any alcohol or drug abuse patient.[facility] HospitalIn the event this information is protected by the Federal Confidentiality of Alcohol and Drug Abuse Patient Records regulations: The Federal rules restrict any use of the information to criminally investigate or prosecute any alcohol or drug abuse patient.[facility] HospitalIn the event this information is protected by the Federal Confidentiality of Alcohol and Drug Abuse Patient Records regulations: The Federal rules restrict any use of the information to criminally investigate or prosecute any alcohol or drug abuse patient.[facility] HospitalIn the event this information is protected by the Federal Confidentiality of Alcohol and Drug Abuse Patient Records regulations: The Federal rules restrict any use of the information to criminally investigate or prosecute any alcohol or drug abuse patient.[facility] HospitalIn the event this information is protected by the Federal Confidentiality of Alcohol and Drug Abuse Patient Records regulations: The Federal rules restrict any use of the information to criminally investigate or prosecute any alcohol or drug abuse patient.[facility] HospitalIn the event this information is protected by the Federal Confidentiality of Alcohol and Drug Abuse Patient Records regulations: The Federal rules restrict any use of the information to criminally investigate or prosecute any alcohol or drug abuse patient.[facility] HospitalIn the event this information is protected by the Federal Confidentiality of Alcohol and Drug Abuse Patient Records regulations: The Federal rules restrict any use of the information to criminally investigate or prosecute any alcohol or drug abuse patient.[facility] INFORMATION SOURCE (unrecogn ized section and content) DATE CREATED AUTHOR 04/12/2024 [facility] DATE CREATED AUTHOR 'S ORGANIZ ATION 06/02/2024 [facility] DATE CREATED AUTHOR AUTHOR'S CALVIN ATION 06/22/2024 [facility] FOR RECORDS PERTAINING TO PATIENTS WHO ARE [...] BE BASED ON THE PRIMARY CLINICAL RECORDS. [facility]. provides no warranty or guarantee of the accuracy or completeness of information in this document.
[2024-06-29 10:53] VITALS: BP 120/64; PULSE 79; O2SAT 97
== END 2024-06-29 11:05 | disposition home or self-care (01) ==
LOC: VC 10:26
PROVIDERS: PCP Radiology Diagnostic Radiology; Visit Provider Radiology Diagnostic Radiology
DX: I83.813 Varicose veins of bilateral lower extremities with pain (principal)
CPT/HCPCS: 36478

== ENCOUNTER 2024-07-06 09:25 | Outpatient (OUT) | payer MEDICARE, OTHER, SELFPAY ==
--- NOTE | 2024-07-06 09:08 | VEINCLINIC_ITS ---
Vital Signs 07/06/24 09:09 Height 5 ft 4 in Weight 118 kg BMI 44.7 Varicose Veins Patient in today for follow up ultrasound of left lower extremity following EVLT of left AASV completed on 06/29/24. Alan Dias MD personally performed the services described in this documentation, as scribed by Yulisa Weinstein RDMS in my presence and it is both accurate and complete. Yulisa Dias RDMS, am scribing for, and in the presence of, Dr. Pranav Hernández and in the presence of the patient. thigh: bilateral, knee: bilateral, calf: bilateral and ruiz: bilateral aching, dull and other (heavy, itching) 5 5 yrs Worsened in recent months: Yes standing analgesics (Ibuprofen), bed rest, elevating extremities and compression stockings Reports limb pain, leg edema and other (bilateral leg ulcers) History of lower extremity trauma: No Superficial thrombophlebitis: No Family history of varicose veins: yes Has patient had previous lower extremity venous surgery: Yes Patient has previously received the following treatment(s) for lower extremity varicose veins: Reports vein ablation, phlebectomy and foam therapy Does patient have a history of : yes () Does patient intend to have future pregnancies: no Has patient had lower extremity venous scan with relux testing: Yes Support hose used: Yes Problems walking or doing physical activity: Yes How does it affect you: limited exercise limited due to pain Do you walk much: No Do you stand much: Yes Medication compliance: good Large amounts of Vitamin K: No Review of Systems ROS Narrative Slight improvement of bilateral lower leg wounds. Alan Dias MD personally performed the services described in this documentation, as scribed by Yulisa Weinstein RDMS in my presence and it is both accurate and complete. Yulisa Dias RDMS, am scribing for, and in the presence of, Dr. Pranav Hernández and in the presence of the patient. Status of ROS 10 or more systems reviewed and unremark able except as noted in history and below Cardiovascular Reports: edema, swelling of feet/ankles and leg pain with exertion Musculoskeletal Reports: extremity pain, extremity swelling, joint pain, joint swelling and muscle weakness Integumentary/Breast Reports: itching, redness, skin tenderness, skin swelling, non-healing lesion (lower left leg) and changes in skin color Neurological Reports: weakness [facility] History (Updated 06/06/24 @ 09:12 by Yulisa Weinstein) Phlebitis and thrombophlebitis of superficial vessels of lower extremities, bilateral ?I80.03 - Phlebitis and thrombophlebitis of superficial vessels of lower extremities, bilateral (ICD-10) Phlebitis and thrombophlebitis of superficial vessels of left lower extremity ?I80.02 - Phlebitis and thrombophlebitis of superficial vessels of left lower extremity (ICD-10) Phlebitis and thrombophlebitis of superficial vessels of right lower extremity ?I80.01 - Phlebitis and thrombophlebitis of superficial vessels of right lower extremity (ICD-10) Varicose veins of bilateral lower extremities with pain ?I83.813 - Varicose veins of bilateral lower extremities with pain (ICD-10) Endometrial cancer ?C54.1 - Malignant neoplasm of endometrium (ICD-10) Obesity ?E66.9 - Obesity, unspecified (ICD-10) Diabetes mellitus type 2 with complications ?E11.8 - Type 2 diabetes mellitus with unspecified complications (ICD-10) Surgical History (Updated 06/29/24 @ 11:21 by Julien Panda) Status post laser ablation of incompetent vein ?Z98.890 - Other specified postprocedural states (ICD-10) Status post ablation of incompetent vein using laser ?Z98.890 - Other specified postprocedural states (ICD-10) History of hysterectomy ?Z90.710 - Acquired absence of both cervix and uterus (ICD-10) History of appendectomy ?Z90.49 - Acquired absence of other specified parts of digestive tract (ICD- 10) History of cholecystectomy ?Z90.49 - Acquired absence of other specified parts of digestive tract (ICD- 10) Family History (Updated 06/06/24 @ 08:52 by Yulisa Weinstein) Father Varicose veins of both lower extremities with pain Brother Family history of cancer Social History (Updated 06/06/24 @ 08:55 by Yulisa Weinstein) Within the past year, how often did you have a drink containing alcohol: 2-4 times a month Within the past year, how often did you have six or more drinks on one occasion: never Smoking status: Never smoker Non-prescribed substance use: denies use Meds Home Medications and Allergies Home Medications ?Medication ?Instructions ?Recorded ?Confirmed ?Type aspirin .Route 06/06/24 History empagliflozin 25 mg tablet 25 mg PO DAILY 06/06/24 06/06/24 History (Jardiance) ibuprofen 200 mg capsule 200 mg PO TID-QID PRN pain 06/06/24 06/06/24 History insulin aspart (niacinamide) subcut 06/06/24 History insulin glargine subcut 06/06/24 History liraglutide 0.6 mg/0.1 mL (18 mg/3 See Rx Instructions subcut .COMPLEX 06/06/24 06/06/24 History mL) subcutaneous pen injector (Victoza 2-Enoc) metformin 1,000 mg tablet 1,000 mg PO DAILY 06/06/24 06/06/24 History Allergies Allergy/AdvReac Type Severity Reaction Status Date / Time No Known Drug Allergies Allergy Unverified 06/06/24 09:01 Exam Narrative Exam Narrative: Mild bruising on left medial thigh. Alan Dias MD personally performed the services described in this documentation, as scribed by Yulisa Weinstein RDMS in my presence and it is both accurate and complete. Yulisa Dias RDMS, am scribing for, and in the presence of, Dr. Pranav Hernnádez and in the presence of the patient. Constitutional Common normals: oriented x3 Lymph Lymphatic: no lymphedema noted Cardio Peripheral pulses: posterior tibial pulses present and dorsalis pedis pulses present Extremity General: calf tenderness, edema and other findings (Non-healing Ulcer) Right lower extremity: lower leg Right lower leg: inspection, palpation and other Left lower extremity: lower leg Left lower leg: inspection, palpation and other Neuro Common normals: oriented x3 Results Imaging Venous US: Radiologist's impression: Heat induced thrombus in left AASV 4.1 cm from SJF and extends to mid thigh. Alan Dias MD personally performed the services described in this documentation, as scribed by Yulisa Weinstein RDMS in my presence and it is both accurate and complete. Yulisa Dias RDMS, am scribing for, and in the presence of, Dr. Pranav Hernández and in the presence of the patient. Assessment and Plan Assessment and Plan (1) Phlebitis and thrombophlebitis of superficial vessels of left lower extremity: Plan Patient is finished with treatment that was approved by insurance at this time. Patient to follow up as needed or within 1-2 years. IAlan MD personally performed the services described in this documentation, as scribed by Yulisa Weinstein RDMS in my presence and it is both accurate and complete. IYulisa RDMS, am scribing for, and in the presence of, Dr. Pranav Hernández and in the presence of the patient.
[2024-07-06 09:09] VITALS: BMI 44.7
--- NOTE | 2024-07-06 09:27 | VEIN_ITS ---
Patient Name: OXANA CASTRO MR#: [id number] : 1955 Exam Date: 07/06/2024 Ordering Doctor: DR COLTON HAMLIN M.D. RADIOLOGY REPORT PROCEDURE: [facility] OFF[facility] VISIT FOLLOW [facility] PROGRESS NOTES: The patient reports improvement in leg symptoms. There has been interval reduction in varicosities. The patient has followed our recommendations to walk 20-30 minutes once or twice per day since the procedure. Physical exam demonstrates decrease in varicosities of the leg. Persistent skin changes and slow healing wound are identified along the lower left leg. Review of the ultrasound performed the same day demonstrates occlusive thrombus extending throughout the treated vein(s), see separate report, consistent with a successful ablation. No thrombus extending into or beyond the saphenofemoral junction. VEIN/[facility] EST [facility] IMPRESSION: 1. Successful ablation of the left anterior accessory saphenous vein(s). 2. Persistent chronic skin changes and slow healing wound of lower left leg. PLAN: 1. No additional endovenous laser ablation needed at this time. 2. Patient has exhausted available microfoam chemical ablation treatments. 3. Patient will continue to follow up with wound clinic. Nurse notes, history and physical were reviewed and confirmed, see attached forms. The nurse was present throughout the physical exam and consultation Dictated by: Alan Hernández M.D. on 07/06/2024 at 09:55 Approved by: Alan Hernández M.D. on 07/06/2024 at 09:57
--- NOTE | 2024-07-06 09:27 | VEIN_ITS ---
Patient Name: OXANA CASTRO MR#: [id number] : 1955 Exam Date: 07/06/2024 Ordering Doctor: DR COLTON HAMLIN M.D. RADIOLOGY REPORT PROCEDURE: VC EXT VENOUS LT LIMITED COMPARISON: VC EXT VENOUS LT LIMITED, 12/01/2023. INDICATIONS: I80.02 - Phlebitis and thrombophlebitis of superficial veins left leg TECHNIQUE: Lower extremity samson scale and Duplex Doppler evaluation of the deep venous system from the inguinal ligament through the calf veins. FINDINGS: REGION: Left lower extremity. THROMBI: Negative for DVT. Heat induced thrombus in left AASV 4.1 cm from SFJ and extends to mid thigh. COMPRESSIBILITY: Non-compressible segments corresponding to thrombus FLOW: Areas of no flow corresponding to thrombus OTHER: CONCLUSION: 1. Successful post ablation occlusion of left anterior accessory saphenous vein. Dictated by: Alan Hernádnez M.D. on 07/06/2024 at 09:53 Approved by: Alan Hernández M.D. on 07/06/2024 at 09:55
--- OUTSIDE RECORDS SUMMARY | 2024-07-06 09:32 | XMS_ITS | CCD ---
Author Organization [facility] CliniSyid Care Team Providers Care Food Service Sales Representatives Name Role Phone Rosanne Dumont Unavailable Sherman Larson Unavailable DO Sherman Larson Primary Care Provider [phone] DO Sherman Larson Attending Provider [phone] DO Dawn Sow Referring Provider Self, Referral Attending Provider Unavailable Sherman Larson DO Primary Care Provider Sherman Larson DO Primary Care Provider Heidi Sanchez Unavailable DO Sherman Larson Primary Care Provider DO Sherman Larson Attending Provider [phone] WALTER Poole Attending Provider [phone] WALTER Dumont Other Provider WALTER Poole Attending Provider [phone] DO Sherman Larson Primary Care Provider DO Sherman Larson Attending Provider [phone] Self, Referral Attending Provider Unavailable DO Sherman Larson Primary Care Provider [phone] WALTER Poole Attending Provider Self, Referral Attending Provider Unavailable DO Sherman Larson Attending Provider LAQUITA Benitez Attending Provider DO Sherman Larson Primary Care Provider [phone] Kuns DO, Sherman P Primary Care Provider [phone] Kuns, DO Sherman Primary Care Provider WALTER Poole Attending Provider Kuns, DO Sherman Attending Provider MapusWALTER Tondra K Referring Provider ЮЛИЯ ODOM Referring Unavailabl e ЮЛИЯ ODOM Attending Unavailabl e KUNS, SHERMAN P Primary Care Unavailable Kuns, DO Sherman Primary Care Provider WALTER Poole Attending Provider KUNS, SHERMAN P Primary Care Unavailable ERIKA, [...] Primary Care Provider WALTER Poole Attending Provider [phone] Medications Current Medications Medication Drug Class(es) Dates [...] DAY Active take 2 tablets by mo [facility] twice daily Glucophage XR 500 mg 2 [...] 29, 2020 1:37pm June 28, 2024 9:58am [id number] 200 actuat albuterol 0.09 mg/actuat metered dose [...] 300 mg by mouth once daily [employer] [place] Discontinued 300 MG PO Daily March 25, [...] sources) Long-term current use of insulin; Translations: [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 Chemotherapy with Carboplatin and taxol [...] cancer +LVI, MMR nl Limited staging 12/2015 ([facility]) HDRB c 04/2016 Chemo x 5 c 06/2016 CT AP reviewed showing unchanged perihepatic and RP lymph nodes compared to 09/2022 Pancreatic cyst: work up with EUS, cytology 02/2023 negative. Followed by GI . Pulmonary nodules Reviewed chest CT 05/26, pulm (more content not included)... Normal [facility] CT CHEST W IVCONon CT CHEST W IVCON * * *Final Report* * * DATE OF EXAM: May 26 2024 9:37AM [facility] 0539 - CT CHEST W IVCON [...] aggressive osseous lesions. Upper abdomen: Hepatic steatosis. Junior Estimator (topogram) images: Unremarkable. IMPRESSION: Unchanged scattered pulmonary [...] any questions regarding this interpretation, please call [phone]. If you are unable to reach us at the number above, please feel free to contact [facility] eRadiology at [phone]. [id number] Normal [facility] CT Chest W contrast Dariel IMPRESSION: Unchanged [...] any questions regarding this interpretation, please call [phone]. If you are unable to reach us at the number above, please feel free to contact [facility] eRadiology at [phone]. DIVISION OF RADIOLOGY * * *Final Report* * * DATE OF EXAM: May 26 2024 9:37AM [facility] 0539 - CT CHEST W IVCON [...] aggressive osseous lesions. Upper abdomen: Hepatic steatosis. Junior Estimator (topogram) images: Unremarkable. DIVISION OF RADIOLOGY Provider, [facility] - 05/26/2024 * * *Final Report* * * DATE OF EXAM: May 26 2024 9:37AM [facility] 0539 - CT CHEST W IVCON [...] aggressive osseous lesions. Upper abdomen: Hepatic steatosis. Junior Estimator (topogram) images: Unremarkable. IMPRESSION IMPRESSION: Unchanged scattered [...] any questions regarding this interpretation, please call [phone]. If you are unable to reach us at the number above, please feel free to contact [facility] eRadiology at [phone]. [facility] Radiology Study observation (narrative) [facility] CT Chest W contrast IVOrdere d By: Ccf Provider on 05-26-[address] [facility] CREATININE BLDon 04-28-2024 Creatinine [Mass/Vol] 0.63 mg/dL 0.58-0.96 [facility] Comment on above: Order Comment: Sumit keating Type: BLOOD SPECIMENOrdering Facility: [facility] Address: [address] [id number] Performed By: #### C RET1 ####[facility] LABCLIA [id number] [place] [address] Creatinine and Glomerular filtration rate.predicted panel (S/P/Bld) 96 mL/min/1.73m??? Normal >=60 [facility] Comment on above: Order Comment: Spectray keating Type: BLOOD SPECIMENOrdering Facility: [facility] Address: [address] [id number] Result Comment: Zoila mated Glomerular Filtration Rate [...] actual GFR. Performed By: #### C RET1 ####[facility] LABCLIA [id number] [place] [address] No Panel Informationon 04-28 Estimated GFR (CKD-EPI) 96 mL/min/1.73m??? >=60 [facility] Comment on above: Estimated Glomerular Filtration [...] 04-26-2024 CNPN Telephone (HEMTSA) -- MAGY CASTRO ([id number]) 1955 F Date Time Provider Department 04/26/24 [...] (HCC) [C54.1] Order(s):CREATININE BLD [SQCRET] Order #: [id number] FUTURE Prescriptions as of 04/26/2024 - FIASP [...] Encounter Status:Closed by ЮЛИЯ ODOM on 04/26/24 [facility] 04-11-2024 CNPN Telephone (GYNML) -- MAGY CASTRO ([id number]) 1955 F Date Time Provider Department 04/11/24 ЮЛИЯ ODOM GYNML During your visit today, we recorded the following information about you: Юлия Odom, EXHIBITS CURATOR.GANG HEAD SAW OPERATOR 04/11/2024 12:01 PM Signed Spoke w patient [...] scans and follow ups be completed at [facility]. Patient comfortable w above plan. Allergies As of Date: 04/11/2024 (No Known Allergies) Date Reviewed: 03/29/2024 Reviewed by: Shirley Carlisle, RN - Fully Assessed Primary Visit Diagnosis:Lung nodules [R91.8] Order(s):CT CHEST W IVCON [[id number]] Order #: [id number] FUTURE iv contrast (will be provided with [...] Encounter Status:Closed by ЮЛИЯ ODOM on 04/11/24 [facility] BRIEF OP NOTon 03-29-2024 BRIEF OP NOT HNO ID: [id number] Author: ISAURO COHEN MD Service: ? Author Type: Fellow Type: Brief Op Note Filed: 03/29/2024 10:13 Note Text: BRIEF OPERATIVE / PROCEDURE NOTE LOG ID: [id number] SURGERY/PROCEDURE DATE: 03/29/2024 INCISION/PROCEDURE START TIME: INCISION CLOSE/PROCEDURE END TIME: 10:05 AM SURGEON(S)/PROCEDURALIST(S ) AND TRIMMING INSPECTOR(S): Surgeon(s) and Role: * Ritesh Radnall MD - Primary * Isauro Cohen MD [...] March 29, 2024 TIME: 10:11 AM Normal [facility] CT BIOPSY LUNGon 03-29-2024 CT BIOPSY LUNG * * *Final Report* * * DATE OF EXAM: Mar 29 2024 10:06AM [facility] 2009 - CT BIOPSY LUNG / PROCEDURE [...] lung nodules. STAFF RADIOLOGIST: Ritesh Randall MD TRIMMING INSPECTOR(S): Isauro Cohen MD CONSENT: The risks (including [...] performed by the: attending radiologist, with an special education teaching assistant. The attending radiologist performed the following [...] not safely accessible. Pleura was not transgressed. Telephonic Rn: PSCB Transcribe Date/Time: Mar 29 2024 11:25A Dictated by : ISAURO COHEN MD This examination was interpreted and the report reviewed and electronically signed by: RITESH RANDALL MD on Mar 29 2024 11:40AM EST [id number] Normal [facility] NURSING PROGon 03-29-2024 NURSING PROG HNO ID: [id number] Author: BETZY DUMONT RN Service: ? Author Type: Registered Nurse Type: Nursing Progress Note Filed: 03/30/2024 08:00 Note Text: Completed post procedure phone call. Debbie did not have a biopsy. She is feeling well and has returned to her baseline diet and activity. Debbie denies questions or concerns related to her appointment on 03/29/24. Normal [facility] PT EDon 03-29-2024 PT ED HNO ID: [id number] Author: JETT VACA RN Service: ? Author [...] RN In Department: HOSP MAIN FB36 Normal [facility] CT ABD/PEL W IVCONon 024 CT ABD/PEL W IVCON * * *Final Report* * * DATE OF EXAM: Mar 25 2024 8:54AM [facility] 0530 - CT ABD/PEL W IVCON [...] mildly enlarged retroperitoneal and perihepatic lymph nodes. Vice President Client Services measurements are detailed as follows on series [...] There are multiple bibasilar pulmonary nodules, with appeals representative measurements detailed as follows on series [...] any questions regarding this interpretation, please call [phone]. If you are unable to reach us at the number above, please feel free to contact [facility] eRadiology at [phone]. [id number] Normal [facility] CT Abdomen and Pelvis W cont [...] any questions regarding this interpretation, please call [phone]. If you are unable to reach us at the number above, please feel free to contact [facility] eRadiology at [phone]. DIVISION OF RADIOLOGY * * *Final Report* * * DATE OF EXAM: Mar 25 2024 8:54AM [facility] 0530 - CT ABD/PEL W IVCON [...] mildly enlarged retroperitoneal and perihepatic lymph nodes. Vice President Client Services measurements are detailed as follows on series [...] There are multiple bibasilar pulmonary nodules, with appeals representative measurements detailed as follows on series 3: -Image 2, medial right lower lobe, 0.6 cm (unchanged since 09/11/2022) -Image 8, right posterolateral lower lobe, 1.3 cm (previously 0.5 cm on 09/11/2022; unchanged since 03/03/2024) -Image 5, left lower lobe, 0.8 cm (unchanged since 09/11/2022) Localizer images: No additional findings. DIVISION OF RADIOLOGY Provider, [facility] - 03/25/2024 * * *Final Report* * * DATE OF EXAM: Mar 25 2024 8:54AM [facility] 0530 - CT ABD/PEL W IVCON [...] mildly enlarged retroperitoneal and perihepatic lymph nodes. Vice President Client Services measurements are detailed as follows on series [...] There are multiple bibasilar pulmonary nodules, with appeals representative measurements detailed as follows on series [...] any questions regarding this interpretation, please call [phone]. If you are unable to reach us at the number above, please feel free to contact [facility] eRadiology at [phone]. [facility] Radiology Study observation (narrative) [facility] CT Abdomen and Pelvis W cont rast IVOrdered By: Ccf Provider on 03-25-[address] [facility] NURSING PROGon 03-23-2024 NURSING PROG HNO ID: [id number] Author: PIERRE SIDDIQUI, MARCEL Service: Nursing Author Type: Registered Nurse Type: Nursing Progress Note Filed: 03/23/2024 10:55 Note Text: Pre-procedure instructions: Contacted patient and confirmed appt. for Lung Biopsy scheduled on 03/29/2024, at [facility]. I will wait while you get [...] signed. Arrival at 0800 to desk QB-1 ([facility]) and check in for your procedure. Etiquette Coach/Transportation: How will you be arriving for your procedure? Private car. If you will be arriving at [facility] via ambulance or public transportation, please call to discuss. You will need a responsible adult to accompany you to and from the procedure. Your parts delivery driver is required to stay with you until you are taken into the Procedure room. If you develop any of the following symptoms before your procedure, please call [phone]. Chills, joint pain, rash, sore throat, cough, [...] discuss. Written instructions provided to patient via [employer] If you have any questions please call [phone] Normal [facility] Activated partial thrombopla stin time (aPTT) in platelet poor plasma by coagulation aOrdered By: Sherman Larson on 03-22-2024 aPTT Coag (PPP) [Time] 33.3 s 25.1-36.5 [facility] Comment on above: A hematocrit value g reater than 55% may lead to inaccurate results in coagulation testing. Patients having hematocrit values >55% require a special collection tube for coagulation studies. Please contact the laboratory at [phone] for redraw instructions. Coagulation Profileon 2023 aPTT Coag (Bld) [Time] 33.3 s Normal 25.1-36.5 [facility] Comment on above: Order Comment: Reaso n for Exam History of uterine cancer;Venous insufficiency;Family histor Result Comment: A he matocrit value greater than 55% may lead to inaccurate results in coagulation testing. Patients having hematocrit values >55% require a special collection tube for coagulation studies. Please contact the laboratory at [phone] for redraw instructions. PERFORMED BY: [place] [address] PATHOLOGIST BUSINESS PERFORMANCE ANALYST LOCO PERRY M.D. Performed By: #### B 12, DEMETRIA #### [address] 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 [Ronda ntifier] in Blood or Tissue by Molecular genetics methodOrdered By: Sherman Larson on 03-22-2024 F5 gene targeted mutation analysis Molgen Nom (Bld/Tiss) See comment Abnormal . 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 See Additional Clinical Information andComments.Additional Clinical Information:Venous thromboembolism is a multifactorial diseaseinfluenced by genetic, environmental, and circumstantialrisk factors. The c.1601G>A (p. Zmk921Jrh) variant in theF5 gene, commonly referred to [...] F2 c.*97G>Avariant and Factor V Leiden (PMID: 68303204). Additionalrisk factors include but are not limited [...] for health careproviders to discuss results at [phone] ([phone]).Test Details:Variant Analyzed: c.1601G>A (p. Kja708Aim), referred toas Factor V LeidenMethods/Limitations:DNA analysis of [...] was developed and its performance characteristicsdetermined by [facility]. It has not been cleared orapproved by the Food and Drug Administration.References:Jourdan S, Reny AK, Jin R, Tatiana WW, Igor BOCANEGRA; ACMGProfessional Practice and Guidelines Committee. Addendum:[employer] consensus statement onfactor V Leiden mutation testing. [employer] Med. 2020Dec 14.doi: 10.1038/w59708-323-24458-g. PMID: 17389855.Ge MANSFIELD. Factor V Leiden Thrombophilia. 1998February 22(Updated 2017Oct 15). In: Lei MP, Latricia HH, Neil RA,et al., editors. James(Moy) (Internet). [place] ([place]):[facility]; 6783-9393. Availablefrom: https://www.ncbi.nlm.nih.gov/books/XJB6682/Kayden S, Reny AK, Stevens X, Kelvin B, Morenita EB, Ashanti P,Jennifer CS; ACMG Laboratory Proposal Analyst Committee.Venous thromboembolism laboratory testing (factor V Leidenand factor II c.*97G>A), 2018 update: a technical standardof the [employer] and Genomics(ACMG). [employer] Med. 2018 Sep;20(12):6697-7943. doi:10.1038/n27529-062-7805-r. Epub 2017Jul 16. PMID: 73952897. Factor V Leiden Mutationon 0 03-22-2024 Factor V Leiden Abnormal . [facility] Comment on above: Order Comment: Reaso n for Exam History of uterine cancer;Venous insufficiency;Family histor Result Comment: Resu lt: c.1601G>A (p.Okl047Yyk) - Detected, Heterozygous This result is associated with a 6- to 8-fold increased risk for venous thromboembolism. See Additional Clinical Information and Comments. Additional Clinical Information: Venous thromboembolism is a multifactorial disease influenced by genetic, environmental, and circumstantial risk factors. The c.1601G>A (p. Lfm793Qea) variant in the F5 gene, commonly referred [...] c.*97G>A variant and Factor V Leiden (PMID: 60962202). Additional risk factors include but are not [...] health care providers to discuss results at [phone] ([phone]). Test Details: Variant Analyzed: c.1601G>A (p. Hwk188Yxb), referred to as Factor V Leiden Methods/Limitations: [...] developed and its performance characteristics determined by [facility]. It has not been cleared or approved by the Food and Drug Administration. References: Jourdan Sandra, Reny JONES, Jin R, Tatiana WW, Igor JH; ACMG Professional Practice and Guidelines Committee. Addendum: [employer] consensus statement on factor V Leiden mutation testing. [employer] Med. 2020Dec 14. doi: 10.1038/y56898-770-79025-x. PMID: 49999403. Ge MANSFIELD. Factor V Leiden Thrombophilia. 1998February 22 (Updated 2017Oct 15). In: Lei MP, Latricia HH, Neil RA, et al., editors. James(R) (Internet). [place] ([place]): [facility]; 3238-8383. Available from: https://www.ncbi.nlm.nih.gov/books/XVU4869/ Kayden Sandra, Reny JONES, Rodney X, Kelvin B, Morenita EB, Ashanti P, Jennifer CS; AC Laboratory Proposal Analyst Committee. Venous thromboembolism laboratory testing (factor V Leiden and factor II c.*97G>A), 2018 update: a technical standard of the [employer] (ACMG). [employer] Med. 2018 Sep;20(12):2942-2885. doi: 10.1038/w57762-695-9142-n. Epub 2017Jul 16. PMID: 58859639. Performed By: #### B 12, URMACRERAT #### [address] Reviewed by: Cassidy Shine, PhD Normal . [facility] Comment on above: Order Comment: Reaso n for Exam History of uterine cancer;Venous insufficiency;Family histor Result Comment: Perf ormed at: [facility] [address] [place], [place] [id number] Media Executive: Martine Valente [facility], Phone: [phone] PERFORMED BY: [place] [address] PATHOLOGIST BUSINESS PERFORMANCE ANALYST LOCO PERRY M.D. Performed By: #### B 12, URMACRERAT #### [facility] [address] [place] [address] HbA1c HPLC (Bld) [Mass fract ion]on 03-22-2024 HbA1c (Bld) [Mass fraction] 6.9 % [facility] INR in Platelet poor plasma by Coagulation assayOrdered By: Sherman Larson on 03-22-2024 INR Coag (PPP) [Relative time] 1.0 {INR} Normal [facility] Comment on above: INR Therapeutic Rang e [...] #### [facility] [address] No Panel InformationOrdered By: Sherman Larson on 03-22-2024 Factor V Leiden Interpretation Cassidy shine, phd . [facility] Comment on above: Performed at: [facility]formerly [facility] [id number] [place], [place] [id number] Director: Martine Valente [facility], Phone: [phone] No Panel Informationon 03-22 Bedside Glucose 216 [facility] Prothrombin time (PT)Ordered By: Sherman Larson on 03-22-2024 PT Coag (PPP) [Time] 11.6 s Normal 9.0-12.9 [facility] Comment on above: A hematocrit value g reater than 55% may lead to inaccurate results in coagulation testing. Patients having hematocrit values >55% require a special collection tube for coagulation studies. Please contact the laboratory at [phone] for redraw instructions. Order Comment: Reaso n for Exam History of uterine cancer;Venous insufficiency;Family histor Result Comment: A he matocrit value greater than 55% may lead to inaccurate results in coagulation testing. Patients having hematocrit values >55% require a special collection tube for coagulation studies. Please contact the laboratory at [phone] for redraw instructions. Performed By: #### B 12, URMACRERAT #### [facility] [address] Alanine aminotransferase [En zymatic activity/volume] in Serum or PlasmaOrdered By: Sherman Larson on 03-18-2024 ALT [Catalytic activity/Vol] 13 U/L Normal 7-52 [facility] Comment on above: Order Comment: Reaso n for Exam Hyperlipidemia LDL goal <100 Performed By: #### T SH3, [id number], CMP, LIPID, CBC #### [facility] [address] Albumin [Mass/volume] in Ser um or Plasma by Bromocresol green (BCG) dye binding methoOrdered By: Sherman Larson on 03-18-2024 Albumin BCG dye [Mass/Vol] 4.1 g/dL 3.5-5.7 [facility] Alkaline phosphatase [Enzyma tic activity/volume] in Serum or PlasmaOrdered By: Sherman Larson on 03-18-2024 ALP [Catalytic activity/Vol] 57 U/L Normal 34-104 [facility] Comment on above: Order Comment: Reaso n for Exam Hyperlipidemia LDL goal <100 Performed By: #### T SH3, [id number], CMP, LIPID, CBC #### [facility] [address] Aspartate aminotransferase [ Enzymatic activity/volume] in Serum or PlasmaOrdered By: Sherman Larson on 03-18-2024 AST [Catalytic activity/Vol] 12 U/L Low 13-39 [facility] Comment on above: Order Comment: Reaso n for Exam Hyperlipidemia LDL goal <100 Performed By: #### T SH3, [id number], CMP, LIPID, CBC #### [facility] [address] [place] [address] Automated basophil %Ordered By: Sherman Larson on 03-18-2024 Basophils/100 WBC (Bld) 1.2 % Normal . [facility] Comment on above: Order Comment: Reaso n for Exam Hyperlipidemia LDL goal <100 Performed By: #### T SH3, [id number], CMP, LIPID, CBC #### [facility] [address] Automated basophil countOrde red By: Sherman Larson on 03-18-2024 Basophils (Bld) [#/Vol] 0.1 10*3/uL Normal 0.0-0.2 [facility] Comment on above: Order Comment: Reaso n for Exam Hyperlipidemia LDL goal <100 Result Comment: PERF ORMED BY: [place] [address] PATHOLOGIST BUSINESS PERFORMANCE ANALYST LOCO PERRY M.D. Performed By: #### T SH3, [id number], CMP, LIPID, CBC #### [facility] [address] Automated blood monocyte cou ntOrdered By: Sherman Larson on 03-18-2024 Monocytes (Bld) [#/Vol] 0.5 10*3/uL Normal 0.0-0.8 [facility] Comment on above: Order Comment: Reaso n for Exam Hyperlipidemia LDL goal <100 Performed By: #### T SH3, [id number], CMP, LIPID, CBC #### [facility] [address] [place] [address] Automated eosinophil %Ordere d By: Sherman Larson on 03-18-2024 Eosinophils/100 WBC (Bld) 2.1 % Normal . [facility] Comment on above: Order Comment: Reaso n for Exam Hyperlipidemia LDL goal <100 Performed By: #### T SH3, [id number], CMP, LIPID, CBC #### [address] Automated eosinophil countOr dered By: Sherman Larson on 03-18-2024 Eosinophils (Bld) [#/Vol] 0.1 10*3/uL Normal 0.0-0.45 [facility] Comment on above: Order Comment: Reaso n for Exam Hyperlipidemia LDL goal <100 Performed By: #### T SH3, [id number], CMP, LIPID, CBC #### [facility] [address] Automated monocyte %Ordered By: Sherman Larson on 03-18-2024 Monocytes/100 WBC (Bld) 6.3 % Normal . [facility] Comment on above: Order Comment: Reaso n for Exam Hyperlipidemia LDL goal <100 Performed By: #### T SH3, [id number], CMP, LIPID, CBC #### [facility] [address] [place] [address] Automated neutrophil %Ordere d By: Sherman Larson on 03-18-2024 Neutrophils/100 WBC (Bld) 69.7 % Normal . [facility] Comment on above: Order Comment: Reaso n for Exam Hyperlipidemia LDL goal <100 Performed By: #### T SH3, [id number], CMP, LIPID, CBC #### [facility] [address] [place] [address] [place] Bilirubin.total [Mass/volume ] in Serum or PlasmaOrdered By: Sherman Larson on 03-18-2024 Bilirubin [Mass/Vol] 0.6 mg/dL Normal 0.3-1.0 [facility] Comment on above: Order Comment: Reaso n for Exam Hyperlipidemia LDL goal <100 Performed By: #### T SH3, [id number], CMP, LIPID, CBC #### [facility] [address] [place] [address] [place] Calcium [Mass/volume] in Ser um or PlasmaOrdered By: Sherman Larson on 03-18-2024 Calcium [Mass/Vol] 9.2 mg/dL Normal 8.6-10.3 [facility] Comment on above: Order Comment: Reaso n for Exam Hyperlipidemia LDL goal <100 Performed By: #### T SH3, [id number], CMP, LIPID, CBC #### [facility] [address] [place] [address] [place] Carbon dioxide, total [Moles /volume] in Serum or PlasmaOrdered By: Sherman Larson on 03-18-2024 CO2 [Moles/Vol] 28.6 mmol/L Normal 21.0-31.0 [facility] Comment on above: Order Comment: Reaso n for Exam Hyperlipidemia LDL goal <100 Performed By: #### T SH3, [id number], CMP, LIPID, CBC #### [facility] [address] [place] [address] [place] Chloride [Moles/volume] in [place] or PlasmaOrdered By: Sherman Larson on 03-18-2024 Chloride [Moles/Vol] 105 mmol/L Normal 98-107 [facility] Comment on above: Order Comment: Reaso n for Exam Hyperlipidemia LDL goal <100 Performed By: #### T SH3, [id number], CMP, LIPID, CBC #### [facility] [address] [place] [id number] [place] Cholesterol [Mass/volume] in Serum or PlasmaOrdered By: Sherman Larson on 03-18-2024 Cholesterol [Mass/Vol] 149 mg/dL Normal 140-200 [facility] Comment on above: Chol less than 200 m g/dl low riskChol 201-239 mg/dl borderline riskChol 240 mg/dl and greater high risk Order Comment: Reaso n for Exam Hyperlipidemia LDL goal <100 Result Comment: Chol less than 200 mg/dl low risk Chol 201-239 mg/dl borderline risk Chol 240 mg/dl and greater high risk Performed By: #### T SH3, [id number], CMP, LIPID, CBC #### [facility] [address] [place] [address] [facility] Cholesterol in LDL Calc [Mas s/Vol]Ordered By: Sherman Larson on 03-18-2024 Cholesterol in LDL [Mass/Vol] 75 mg/dL 0-100 [facility] Comment on above: LDL ATP III CLASSIFI CATIONLDL less than 100 mg/dL OptimalLDL 100-129 mg/dL Near or above optimalLDL 130-159 mg/dL Borderline highLDL 160-189 mg/dL HighLDL greater than 189 mg/dL Very high Cholesterol in VLDL Calc [Ma ss/Vol]Ordered By: Sherman Larson on 03-18-2024 Cholesterol in VLDL [Mass/Vol] 37 mg/dL [facility] Complete Blood Count Auto Di ffon 03-18-2024 Mean Corpuscular HGB Conc 32.7 g/dL Normal 32.0-35.0 [facility] Comment on above: Order Comment: Reaso n for Exam Hyperlipidemia LDL goal <100 Performed By: #### T SH3, [id number], CMP, LIPID, CBC #### [facility] [address] [place] [address] [place] NRBC% 0.1 /100{WBC} Normal 0-0.5 [facility] Comment on above: Order Comment: Reaso n for Exam Hyperlipidemia LDL goal <100 Performed By: #### T SH3, [id number], CMP, LIPID, CBC #### [facility] [address] [place] [address] [facility] Comprehensive Metabolic Pane riaz 03-18-2024 Albumin [Mass/Vol] 4.1 g/dL Normal 3.5-5.7 [facility] Comment on above: Order Comment: Reaso n for Exam Hyperlipidemia LDL goal <100 Performed By: #### T SH3, [id number], CMP, LIPID, CBC #### [facility] [address] [place] [address] [place] GFR/1.73 sq M.predicted MDRD (S/P/Bld) [Vol rate/Area] mL/min/{1.73_m2} Normal [facility] Comment on above: Order Comment: Reaso n for Exam Hyperlipidemia LDL goal <100 Performed By: #### T SH3, [id number], CMP, LIPID, CBC #### [facility] [address] Creatinine [Mass/volume] in Serum or PlasmaOrdered By: Sherman Larson on 03-18-2024 Creatinine [Mass/Vol] 0.65 mg/dL Normal 0.60-1.20 [facility] Comment on above: Order Comment: Reaso n for Exam Hyperlipidemia LDL goal <100 Performed By: #### T SH3, [id number], CMP, LIPID, CBC #### [facility] [address] [place] [address] [place] Creatinine [Mass/volume] in UrineOrdered By: Rosanne Dumont on 03-18-2024 Creatinine (U) [Mass/Vol] 54.00 mg/dL [facility] Comment on above: No reference range e stablished Erythrocyte distribution wid th [Ratio] by Automated countOrdered By: Sherman Larson on 03-18-2024 Erythrocyte distribution width (RBC) [Ratio] 17.5 % High 11.9-15.3 [facility] Comment on above: Order Comment: Reaso n for Exam Hyperlipidemia LDL goal <100 Performed By: #### T SH3, [id number], CMP, LIPID, CBC #### [facility] [address] [place] [address] [place] Erythrocytes [#/volume] in B lood by Automated countOrdered By: Sherman Larson on 03-18-2024 RBC (Bld) [#/Vol] 5.06 10*6/uL High 3.60-5.00 [facility] Comment on above: Order Comment: Reaso n for Exam Hyperlipidemia LDL goal <100 Performed By: #### T SH3, [id number], CMP, LIPID, CBC #### [facility] [address] [place] [address] [place] Glucose [Mass/volume] in Ser um or PlasmaOrdered By: Sherman Larson on 03-18-2024 Glucose [Mass/Vol] 138 mg/dL High 70-100 [facility] Comment on above: ADA recommended refe rence rangeRandom Glucose Reference Range is dependent on time and content of last meal. Glucose of more than 200 mg/dL in a nonstressed, ambulatory subject supports the diagnosis of Diabetes Mellitus. Order Comment: Reaso n for Exam Hyperlipidemia LDL goal <100 Result Comment: [place] om Glucose Reference Range is dependent on time and content of last meal. Glucose of more than 200 mg/dL in a nonstressed, ambulatory subject supports the diagnosis of Diabetes Mellitus. ADA recommended reference range Performed By: #### T SH3, [id number], CMP, LIPID, CBC #### [facility] [address] [place] [address] [place] Hematocrit [Volume Fraction] of Blood by Automated countOrdered By: Sherman Larson on 03-18-2024 Hematocrit (Bld) [Volume fraction] 42.4 % Normal 34.0-46.4 [facility] Comment on above: Order Comment: Reaso n for Exam Hyperlipidemia LDL goal <100 Performed By: #### T SH3, [id number], CMP, LIPID, CBC #### [facility] [address] [place] [address] [place] Hemoglobin [Mass/volume] in BloodOrdered By: Sherman Larson on 03-18-2024 Hemoglobin (Bld) [Mass/Vol] 13.8 g/dL Normal 11.8-15.4 [facility] Comment on above: Order Comment: Reaso n for Exam Hyperlipidemia LDL goal <100 Performed By: #### T SH3, [id number], CMP, LIPID, CBC #### [facility] [address] [place] [address] [place] Leukocytes [#/volume] correc kedar for nucleated erythrocytes in Blood by Automated counOrdered By: Sherman Larson on 03-18-2024 WBC corrected for nucl RBC Auto (Bld) [#/Vol] 7.2 10*3/uL 3.8-11.6 [facility] Leukocytes [#/volume] in Blo od by Automated countOrdered By: Sherman Larson on 03-18-2024 WBC (Bld) [#/Vol] 7.2 10*3/uL Normal 3.8-11.6 [facility] Comment on above: Order Comment: Reaso n for Exam Hyperlipidemia LDL goal <100 Performed By: #### T SH3, [id number], CMP, LIPID, CBC #### [facility] [address] [place] [id number] [facility] Lipid Panelon 03-18-2024 LDL Cholesterol,Calculate d 75 mg/dL Normal 0-100 [facility] Comment on above: Order Comment: Reaso n for Exam Hyperlipidemia LDL goal <100 Result Comment: LDL ATP III CLASSIFICATION LDL less than 100 mg/dL Optimal LDL 100-129 mg/dL Near or above optimal LDL 130-159 mg/dL Borderline high LDL 160-189 mg/dL High LDL greater than 189 mg/dL Very high Performed By: #### T SH3, [id number], CMP, LIPID, CBC #### [facility] [address] Triglyceride w/Reflex 185 mg/dL High 0-149 [facility] Comment on above: Order Comment: Reaso n for Exam Hyperlipidemia LDL goal <100 Result Comment: TRIG ATP III CLASSIFICATION TRIG less than 150 mg/dL Normal TRIG 150-199 mg/dL Borderline high TRIG 200-500 mg/dL High TRIG greater than 500 mg/dL Very high Standard traceable to the Center for Disease Conrtrol and Prevention (CDC) test method. Performed By: #### T SH3, [id number], CMP, LIPID, CBC #### [facility] [address] [place] [id number] [facility] VLDL CHOLESTEROL 37 mg/dL Normal [facility] Comment on above: Order Comment: Reaso n for Exam Hyperlipidemia LDL goal <100 Performed By: #### T SH3, [id number], CMP, LIPID, CBC #### [facility] [address] [place] [address] Lymphocytes [#/volume] in Bl ood by Automated countOrdered By: Sherman Larson on 03-18-2024 Lymphocytes (Bld) [#/Vol] 1.5 10*3/uL Normal 1.00-4.8 [facility] Comment on above: Order Comment: Reaso n for Exam Hyperlipidemia LDL goal <100 Performed By: #### T SH3, [id number], CMP, LIPID, CBC #### [facility] [address] [place] [address] Lymphocytes/100 leukocytes i n Blood by Automated countOrdered By: Sherman Larson on 03-18-2024 Lymphocytes/100 WBC (Bld) 20.7 % Normal . [facility] Comment on above: Order Comment: Reaso n for Exam Hyperlipidemia LDL goal <100 Performed By: #### T SH3, [id number], CMP, LIPID, CBC #### [facility] [address] [place] [address] MCH [Entitic mass] by Automa kedar countOrdered By: Sherman Larson on 03-18-2024 MCH (RBC) [Entitic mass] 27.4 pg Normal 24.7-34.3 [facility] Comment on above: Order Comment: Reaso n for Exam Hyperlipidemia LDL goal <100 Performed By: #### T SH3, [id number], CMP, LIPID, CBC #### [facility] [address] [place] [address] MCHC Auto (RBC) [Mass/Vol]Or dered By: Sherman Larson on 03-18-2024 MCHC (RBC) [Mass/Vol] 32.7 g/dL 32.0-35.0 [facility] MCV [Entitic volume] by Auto mated countOrdered By: Sherman Larson on 03-18-2024 MCV (RBC) [Entitic vol] 83.8 fL Normal 80-100 [facility] Comment on above: Order Comment: Reaso n for Exam Hyperlipidemia LDL goal <100 Performed By: #### T SH3, [id number], CMP, LIPID, CBC #### [facility] [address] [place] [address] MicroAlb Creat Ratio,Uon Creatinine, Urine (Random) 54.00 mg/dL Normal [facility] Comment on above: Result Comment: No r eference range established Performed By: #### B 12, CLAIREMACRET #### [address] Microalbumin/Creatini ne Ratio 13.0 mg/g Normal 0.0-30.0 [facility] Comment on above: Result Comment: 30-3 00 mg/g indicates an increased risk for diabetic nephropathy. Greater than 300 mg/g is consistent with clinical nephropathy. (Am. J. Kidney Disease 1995, 25:107) PERFORMED BY: [place] [address] PATHOLOGIST BUSINESS PERFORMANCE ANALYST LOCO PERRY M.D. Performed By: #### B 12, URMACRERAT #### [address] Microalbumin [Mass/volume] i n UrineOrdered By: Rosanne Dumont on 03-18-2024 Albumin DL <= 20 mg/L (U) [Mass/Vol] 0.7 mg/dL Normal 0.0-1.8 [facility] Comment on above: Performed By: #### B 12, CLAIREMACRET #### [address] Neutrophils [#/volume] in Bl ood by Automated countOrdered By: Sherman Larson on 03-18-2024 Neutrophils (Bld) [#/Vol] 5.0 10*3/uL Normal 1.8-7.7 [facility] Comment on above: Order Comment: Reaso n for Exam Hyperlipidemia LDL goal <100 Performed By: #### T SH3, [id number], CMP, LIPID, CBC #### [address] No Panel InformationOrdered By: Sherman Larson on 03-18-2024 Estimated GFR (CKD-EPI) > 60.0 mL/Min [facility] Creatinine Clearance (Chem N/A [facility] Nucleated erythrocytes [Pres ence] in Blood by Automated countOrdered By: Sherman Larson on 03-18-2024 Nucleated RBC Auto Ql (Bld) 0.1 /100{WBC} 0-0.5 [facility] Platelet mean volume [Entiti c volume] in Blood by Automated countOrdered By: Sherman Larson on 03-18-2024 Platelet mean volume (Bld) [Entitic vol] 7.6 fL Normal 6.3-10.7 [facility] Comment on above: Order Comment: Reaso n for Exam Hyperlipidemia LDL goal <100 Performed By: #### T SH3, [id number], CMP, LIPID, CBC #### [facility] [address] [place] [address] [place] Platelets [#/volume] in Bloo d by Automated countOrdered By: Sherman Larson on 03-18-2024 Platelets (Bld) [#/Vol] 285 10*3/uL Normal 150-450 [facility] Comment on above: Order Comment: Reaso n for Exam Hyperlipidemia LDL goal <100 Performed By: #### T SH3, [id number], CMP, LIPID, CBC #### [facility] [address] [place] [address] [place] Potassium [Moles/volume] in Serum or PlasmaOrdered By: Sherman Larson on 03-18-2024 Potassium [Moles/Vol] 4.0 mmol/L Normal 3.5-5.1 [facility] Comment on above: Order Comment: Reaso n for Exam Hyperlipidemia LDL goal <100 Performed By: #### T SH3, [id number], CMP, LIPID, CBC #### [facility] [address] [place] [address] [place] Protein [Mass/volume] in Ser um or PlasmaOrdered By: Sherman Larson on 03-18-2024 Protein [Mass/Vol] 6.9 g/dL Normal 6.4-8.9 [facility] Comment on above: Order Comment: Reaso n for Exam Hyperlipidemia LDL goal <100 Performed By: #### T SH3, [id number], CMP, LIPID, CBC #### [facility] [address] [place] [id number] [place] Serum globulin measurement b y calculation (mass/volume)Ordered By: Sherman Larson on 03-18-2024 Globulin (S) [Mass/Vol] 2.8 g/dL [facility] Comment on above: Order Comment: Reaso n for Exam Hyperlipidemia LDL goal <100 Performed By: #### T SH3, [id number], CMP, LIPID, CBC #### [facility] [address] Serum or plasma albumin/glob ulin mass ratioOrdered By: Sherman Larson on 03-18-2024 Albumin/Globulin [Mass ratio] 1.5 {ratio} [facility] Comment on above: Order Comment: Reaso n for Exam Hyperlipidemia LDL goal <100 Performed By: #### T SH3, [id number], CMP, LIPID, CBC #### [facility] [address] [place] [address] Serum or plasma anion gap de terminationOrdered By: Sherman Larson on 03-18-2024 Anion gap [Moles/Vol] 9.4 mmol/L Normal 6.0-15.0 [facility] Comment on above: Order Comment: Reaso n for Exam Hyperlipidemia LDL goal <100 Performed By: #### T SH3, [id number], CMP, LIPID, CBC #### [facility] [address] [place] [address] Serum or plasma high density lipoprotein (HDL) cholesterol measurementOrdered By: Sherman Larson on 03-18-2024 Cholesterol in HDL [Mass/Vol] 37 mg/dL Normal 23-92 [facility] Comment on above: HDL CHOL ATP-III CLA SSIFICATION Cardiovascular RiskHDL > or equal to 60 mg/dL LOWHDL < 40 mg/dL HIGH Order Comment: Reaso n for Exam Hyperlipidemia LDL goal <100 Result Comment: HDL CHOL ATP-III CLASSIFICATION Cardiovascular Risk HDL > or equal to 60 mg/dL LOW HDL < 40 mg/dL HIGH Performed By: #### T SH3, [id number], CMP, LIPID, CBC #### [facility] [address] Serum or plasma total choles terol/high density lipoprotein (HDL) cholesterol mass ratOrdered By: Sherman Larson on 03-18-2024 Cholesterol.total/Cho lesterol in HDL [Mass ratio] 4.0 {ratio} Normal <5.0 [facility] Comment on above: Order Comment: Reaso n for Exam Hyperlipidemia LDL goal <100 Result Comment: PERF ORMED BY: [place] [address] PATHOLOGIST BUSINESS PERFORMANCE ANALYST LOCO PERRY M.D. Performed By: #### T SH3, [id number], CMP, LIPID, CBC #### [facility] [address] Sodium [Moles/volume] in Ser um or PlasmaOrdered By: Sherman Larson on 03-18-2024 Sodium [Moles/Vol] 139 mmol/L Normal 136-145 [facility] Comment on above: Order Comment: Reaso n for Exam Hyperlipidemia LDL goal <100 Performed By: #### T SH3, [id number], CMP, LIPID, CBC #### [facility] [address] [place] [address] Thyrotropin [Units/volume] i n Serum or PlasmaOrdered By: Sherman Larson on 03-18-2024 TSH Qn 1.20 m[IU]/L Normal 0.45-5.33 [facility] Comment on above: Order Comment: Reaso n for Exam Hyperlipidemia LDL goal <100 Reason for Exam Vitamin D deficiency Performed By: #### T SH3, [id number], CMP, LIPID, CBC #### [facility] [address] [place] [address] Triglyceride [Mass/volume] i n Serum or PlasmaOrdered By: Sherman Larson on 03-18-2024 Triglyceride [Mass/Vol] 185 mg/dL High 0-149 [facility] Comment on above: TRIG ATP III CLASSIF ICATIONTRIG less than 150 mg/dL NormalTRIG 150-199 mg/dL Borderline highTRIG 200-500 mg/dL High TRIG greater than 500 mg/dL Very highStandard traceable to the Center for Disease Conrtrol and Prevention (CDC) test method. Urea nitrogen [Mass/volume] in Serum or PlasmaOrdered By: Sherman Larson on 03-18-2024 Urea nitrogen [Mass/Vol] 19 mg/dL Normal 7-25 [facility] Comment on above: Order Comment: Reaso n for Exam Hyperlipidemia LDL goal <100 Performed By: #### T SH3, [id number], CMP, LIPID, CBC #### [facility] [address] Urine microalbumin/creatinin e mass ratioOrdered By: Rosanne Dumont on 03-18-2024 Albumin/Creatinine DL <= 20 mg/L (U) [Mass ratio] 13.0 mg/g 0.0-30.0 [facility] Comment on above: 30-300 mg/g indicate s an increased risk for diabetic nephropathy. Greater than 300 mg/g is consistent with clinical nephropathy. (Am. J. Kidney Disease 1995, 25:107) Vitamin B12 ser/plasOrdered By: Rosanne Dumont on 03-18-2024 Cobalamin (Vitamin B12) [Mass/Vol] 459 pg/mL Normal 180-914 [facility] Comment on above: Result Comment: PERF ORMED BY: [place] [address] PATHOLOGIST BUSINESS PERFORMANCE ANALYST LOCO PERRY M.D. Performed By: #### B 12, DEMETRIA #### [address] Vitamin D 25 Hydroxy Totalon 03-18-2024 Vitamin D 25 Hydroxy Total 40.2 ng/mL Normal 30-100 [facility] Comment on above: Order [...] practice guideline. JCEM. 2010; 96(7):1911-30. PERFORMED BY: [place] [address] PATHOLOGIST BUSINESS PERFORMANCE ANALYST LOCO PERRY M.D. Performed By: #### B 12, URMACRERAT #### [facility] [address] Vitamin D+Metabolites [Mass/ volume] in Serum or PlasmaOrdered By: Sherman Larson on 03-18-2024 Vitamin D+Metabolites [Mass/Vol] 40.2 ng/mL 30-100 [facility] Comment on above: VITAMIN D STATUS 25( [place])VITAMIN D RANGE (ng/mL) Deficient <20 Insufficient 20 to <30Sufficient 30 to 100Reference: Paul MF,Dionne COLBERT, Lupe FOX, et al. Evaluation,treatment, and prevention of vitamin D deficiency; an Endocrine Society clinical practice guideline. JCEM. 2010; 96(7):1911-30. CBC panel Auto (Bld)on 03-10 Erythrocyte distribution width (RBC) [Ratio] 16.9 % High 11.5 - 15.0 % [facility] Hematocrit (Bld) [Volume fraction] 45.7 % 36.0 - 46.0 % [facility] Hemoglobin (Bld) [Mass/Vol] 14.3 g/dL 11.5 - 15.5 g/dL [facility] Interpretation and review of laboratory results Abnormal [facility] MCH (RBC) [Entitic mass] 26.7 pg 26.0 - 34.[address] [facility] MCHC (RBC) [Mass/Vol] 31.3 g/dL 30.5 - 36.0 g/dL [facility] MCV (RBC) [Entitic vol] 85.4 fL 80.0 - 100.[address] [facility] Nucleated RBC (Bld) [#/Vol] NINF [facility] Platelet mean volume (Bld) [Entitic vol] 8.5 fL Low 9.0 - 12.[address] [facility] Platelets (Bld) [#/Vol] 279 10*3/uL [facility] RBC (Bld) [#/Vol] 5.35 10*6/uL High 3.90 - 5.20 m/uL [facility] WBC (Bld) [#/Vol] 7.05 10*3/uL [facility] Erythrocyte distribution width (RBC) [Ratio] 16.9 % High 11.5-15.0 [facility] Comment on above: Order Comment: Speci men Type: BLOOD SPECIMENOrdering Facility: [facility] Address: [address] [place] [address] Performed By: #### 5 8410-2 ####[facility] LABCLIA [id number] [place] [address] Hematocrit (Bld) [Volume fraction] 45.7 % Normal 36.0-46.0 [facility] Comment on above: Order Comment: Speci men Type: BLOOD SPECIMENOrdering Facility: [facility] Address: [address] [place] [address] Performed By: #### 5 8410-2 ####[facility] LABCLIA [id number] [place] [address] Hemoglobin (Bld) [Mass/Vol] 14.3 g/dL Normal 11.5-15.5 [facility] Comment on above: Order Comment: Speci men Type: BLOOD SPECIMENOrdering Facility: [facility] Address: [address] [place] [address] Performed By: #### 5 8410-2 ####[facility] LABCLIA [id number] [place] [address] MCH (RBC) [Entitic mass] 26.7 pg Normal 26.0-34.0 [facility] Comment on above: Order Comment: Speci men Type: BLOOD SPECIMENOrdering Facility: [facility] Address: [address] [place] [address] Performed By: #### 5 8410-2 ####[facility] LABCLIA [id number] [place] [address] MCHC (RBC) [Mass/Vol] 31.3 g/dL Normal 30.5-36.0 [facility] Comment on above: Order Comment: Speci men Type: BLOOD SPECIMENOrdering Facility: [facility] Address: [address] [place] [address] Performed By: #### 5 8410-2 ####[facility] LABCLIA [id number] [place] [address] MCV (RBC) [Entitic vol] 85.4 fL Normal 80.0-100.0 [facility] Comment on above: Order Comment: Speci men Type: BLOOD SPECIMENOrdering Facility: [facility] Address: [address] [place] [address] Performed By: #### 5 8410-2 ####[facility] LABCLIA [id number] [place] [address] Nucleated RBC (Bld) [#/Vol] 10*3/uL Normal <0.01 [facility] Comment on above: Order Comment: Speci men Type: BLOOD SPECIMENOrdering Facility: [facility] Address: [address] [place] [address] Performed By: #### 5 8410-2 ####[facility] LABCLIA [id number] [place] [address] Platelet mean volume (Bld) [Entitic vol] 8.5 fL Low 9.0-12.7 [facility] Comment on above: Order Comment: Speci men Type: BLOOD SPECIMENOrdering Facility: [facility] Address: [address] [place] [address] Performed By: #### 5 8410-2 ####[facility] LABCLIA [id number] [place] [address] Platelets (Bld) [#/Vol] 279 10*3/uL Normal 150-400 [facility] Comment on above: Order Comment: Speci men Type: BLOOD SPECIMENOrdering Facility: [facility] Address: [address] [place] [address] Performed By: #### 5 8410-2 ####[facility] LABCLIA [id number] [place] [address] RBC (Bld) [#/Vol] 5.35 10*6/uL High 3.90-5.20 [facility] Comment on above: Order Comment: Speci men Type: BLOOD SPECIMENOrdering Facility: [facility] Address: [address] [place] [address] Performed By: #### 5 8410-2 ####[facility] LABCLIA [id number] [place] [address] WBC (Bld) [#/Vol] 7.05 10*3/uL Normal 3.70-11.00 [facility] Comment on above: Order Comment: Speci men Type: BLOOD SPECIMENOrdering Facility: [facility] Address: [address] [place] [address] Performed By: #### 5 8410-2 ####[facility] LABIA [id number] [place] [address] CREATININE BLDon 03-10-2024 Creatinine [Mass/Vol] 0.69 mg/dL Normal 0.58-0.96 [facility] Comment on above: Order Comment: Speci men Type: BLOOD SPECIMENOrdering Facility: [facility] Address: [address] [place] [address] Performed By: #### C RET1 ####[facility] LABIA [id number] [place] [address] Creatinine and Glomerular filtration rate.predicted panel (S/P/Bld) 93 mL/min/1.73m??? Normal >=60 [facility] Comment on above: Order Comment: Speci men Type: BLOOD SPECIMENOrdering Facility: [facility] Address: [address] [place] [address] Result Comment: Zoila mated Glomerular Filtration Rate [...] actual GFR. Performed By: #### C RET1 ####[facility] LABCLIA [id number] [place] [address] Erythrocyte distribution wid th Auto (RBC) [Ratio]on 03-10-2024 Erythrocyte distribution width (RBC) [Ratio] 16.9 % High 11.5-15.0 [facility] Hematocrit Auto (Bld) [Volum e fraction]on 03-10-2024 Hematocrit (Bld) [Volume fraction] 45.7 % 36.0-46.0 [facility] Hemoglobin [Mass/volume] in Bloodon 03-10-2024 Hemoglobin (Bld) [Mass/Vol] 14.3 g/dL 11.5-15.5 [facility] Laboratory - Chemistry and C hemistry - challengeon 03-10-2024 Creatinine [Mass/Vol] 0.69 mg/dL 0.58-0.96 [facility] Leukocytes [#/volume] correc kedar for nucleated erythrocytes in Blood by Automated counon 03-10-2024 WBC corrected for nucl RBC Auto (Bld) [#/Vol] 7.05 k/uL 3.70-11.00 [facility] MCH Auto (RBC) [Entitic mass ]on 03-10-2024 MCH (RBC) [Entitic mass] 26.7 pg 26.0-34.0 [facility] MCHC Auto (RBC) [Mass/Vol]on 03-10-2024 MCHC (RBC) [Mass/Vol] 31.3 g/dL 30.5-36.0 [facility] MCV Auto (RBC) [Entitic vol] on 03-10-2024 MCV (RBC) [Entitic vol] 85.4 fL 80.0-100.0 [facility] No Panel Informationon 03-10 Estimated GFR (CKD-EPI) 93 mL/min/1.73m??? >=60 [facility] Comment on above: Estimated Glomerular Filtration [...] 03-10-2024 Nucleated RBC (Bld) [#/Vol] 10*3/uL <0.01 [facility] Platelet mean volume Auto (B ld) [Entitic vol]on 03-10-2024 Platelet mean volume (Bld) [Entitic vol] 8.5 fL Low 9.0-12.7 [facility] Platelets Auto (Bld) [#/Vol] on 03-10-2024 Platelets (Bld) [#/Vol] 279 10*3/uL 150-400 [facility] RBC Auto (Bld) [#/Vol]on RBC (Bld) [#/Vol] 5.35 10*6/uL High 3.90-5.20 [facility] Myesha 03-08-2024 CNPN Telephone (IRRFV) -- MAGY CASTRO ([id number]) 1955 F Date Time Provider Department 03/08/24 ЮЛИЯ ODOM IRR During your visit today, we recorded the following information about you: Jamia White 03/08/2024 8:20 AM Signed RADIOLOGY CALL CENTER INTAKE DATE: 03/08/2024 TIME: 8:17am REQUESTING STAFF: Юлия Odom APRN.[facility] PHONE/PAGER: : [phone] SPECIFICS OF THE REQUEST:Lung BX SPECIAL REQUESTS: TISSUE SAMPLE, LABWORK: N/A IS THIS REQUEST PART OF A RESEARCH PROTOCOL: No MEDICAL DIAGNOSIS: Lung nodules [R91.8] TYPE AND DATE OF THE EXAM THAT IS THE BASIS OF THE REQUEST: CT Date: 03/03/2024 IMAGING: [facility] Note to all persons requesting biopsies: All biopsy requests will be scheduled as quickly as possible, based on the clinical urgency, availability of appointment times, the need to hold anti-thrombolytic therapy (aspirin, blood thinners) and the patient?s schedule, including the need for an available parts delivery driver. If a percutaneous biopsy or drainage [...] lung biopsy 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-high risk. Reference from [facility]: https://cc[facility].[email or web address]-Trig.com /dotNet/documents/?[email or web address] [email or web address] STAFF SIGNATURE: Beltran Romano MD [...] [R91.1] Order(s):COMPLETE BLOOD COUNT [SQCBC] Order #: [id number] FUTURE Prescriptions as of (more content not included)... Normal [facility] CT CHEST W IVCONon CT CHEST W IVCON * * *Final Report* * * DATE OF EXAM: Mar 03 2024 9:30AM [facility] 0539 - CT CHEST W IVCON [...] lesions. Upper abdomen: Suspected hepatic steatosis. Cholecystectomy. Junior Estimator (topogram) images: Unremarkable. IMPRESSION: Enlargement of a [...] any questions regarding this interpretation, please call [phone]. If you are unable to reach us at the number above, please feel free to contact [facility] eRadiology at [phone]. [id number] Normal [facility] CT Chest W contrast Dariel IMPRESSION: Enlargement [...] any questions regarding this interpretation, please call [phone]. If you are unable to reach us at the number above, please feel free to contact [facility] eRadiology at [phone]. DIVISION OF RADIOLOGY * * *Final Report* * * DATE OF EXAM: Mar 03 2024 9:30AM [facility] 0539 - CT CHEST W IVCON [...] lesions. Upper abdomen: Suspected hepatic steatosis. Cholecystectomy. Junior Estimator (topogram) images: Unremarkable. DIVISION OF RADIOLOGY Provider, Sammie Kirill [facility] - 03/03/2024 * * *Final Report* * * DATE OF EXAM: Mar 03 2024 9:30AM [facility] 0539 - CT CHEST W IVCON [...] lesions. Upper abdomen: Suspected hepatic steatosis. Cholecystectomy. Junior Estimator (topogram) images: Unremarkable. IMPRESSION IMPRESSION: Enlargement of [...] any questions regarding this interpretation, please call [phone]. If you are unable to reach us at the number above, please feel free to contact [facility] eRadiology at [phone]. [facility] Radiology Study observation (narrative) [facility] CT Chest W contrast IVOrdere d By: [facility] Provider on 03-03-[address] [facility] Comprehensive metabolic 2000 panelOrdered By: Jamel Mayo on 03-03-2024 Albumin [Mass/Vol] 4.3 g/dL 3.9 - 4.9 g/dL [facility] ALP [Catalytic activity/Vol] 72 U/L 34 - 123 U/L [facility] ALT [Catalytic activity/Vol] 16 U/L 7 - 38 U/L [facility] Anion gap [Moles/Vol] 11 mmol/L 9 - 18 mmol/L [facility] AST [Catalytic activity/Vol] 17 U/L 13 - 35 U/L [facility] Bilirubin [Mass/Vol] 0.5 mg/dL 0.2 - 1 .3 mg/dL [facility] Calcium [Mass/Vol] 9.8 mg/dL 8.5 - 10. 2 mg/dL [facility] Chloride [Moles/Vol] 106 mmol/L High 97 - 10 5 mmol/L [facility] CO2 [Moles/Vol] 26 mmol/L 22 - 30 mmol/L [facility] Creatinine [Mass/Vol] 0.69 mg/dL 0.58 - 0.96 mg/dL [facility] GFR/1.73 sq M.predicted among non-blacks MDRD (S/P/Bld) [Vol rate/Area] 93 mL/min/{1.73_m2} - PINF [facility] Comment on above: Estimated Glomerular [...] High 74 - 99 mg/dL [facility] Comment on above: The [place] Diabete [employer] Association (ADA) provides guidance for [...] Standards of Medical Care in Diabetes 2016, [place] [employer]. Diabetes Care. 2016.39(Suppl 1). Interpretation and review of laboratory results Abnormal [facility] Potassium [Moles/Vol] 4.2 mmol/L 3.7 - 5.1 mmol/L [facility] Protein [Mass/Vol] 7.8 g/dL 6.3 - 8.0 g/dL [facility] Sodium [Moles/Vol] 143 mmol/L 136 - 144 mmol/L [facility] Urea nitrogen [Mass/Vol] 15 mg/dL 7 - 21 mg/dL [facility] Comprehensive metabolic 2000 panelon 03-03-2024 Albumin [Mass/Vol] 4.3 g/dL Normal 3.9-4.9 [facility] Comment on above: Order Comment: Speci men Type: BLOOD SPECIMENOrdering Facility: [facility] Address: [address] [place] [address] Performed By: #### 2 4323-8 ####[facility] LABCLIA [id number] [place] [address] ALP [Catalytic activity/Vol] 72 U/L Normal 34-123 [facility] Comment on above: Order Comment: Speci men Type: BLOOD SPECIMENOrdering Facility: [facility] Address: [address] [place] [address] Performed By: #### 2 4323-8 ####[facility] LABCLIA [id number] [place] [address] ALT [Catalytic activity/Vol] 16 U/L Normal 7-38 [facility] Comment on above: Order Comment: Speci men Type: BLOOD SPECIMENOrdering Facility: [facility] Address: [address] [place] [address] Performed By: #### 2 4323-8 ####[facility] LABCLIA [id number] [place] [address] Anion gap [Moles/Vol] 11 mmol/L Normal 9-18 [facility] Comment on above: Order Comment: Speci men Type: BLOOD SPECIMENOrdering Facility: [facility] Address: [address] [place] [address] Performed By: #### 2 4323-8 ####[facility] LABCLIA [id number] [place] [address] AST [Catalytic activity/Vol] 17 U/L Normal 13-35 [facility] Comment on above: Order Comment: Speci men Type: BLOOD SPECIMENOrdering Facility: [facility] Address: [address] [place] [address] Performed By: #### 2 4323-8 ####[facility] LABCLIA [id number] [place] [address] Bilirubin [Mass/Vol] 0.5 mg/dL Normal 0.2-1.3 [facility] Comment on above: Order Comment: Speci men Type: BLOOD SPECIMENOrdering Facility: [facility] Address: [address] [place] [address] Performed By: #### 2 4323-8 ####[facility] LABCLIA [id number] [place] [address] Calcium [Mass/Vol] 9.8 mg/dL Normal 8.5-10.2 [facility] Comment on above: Order Comment: Speci men Type: BLOOD SPECIMENOrdering Facility: [facility] Address: [address] [place] [address] Performed By: #### 2 4323-8 ####[facility] LABCLIA [id number] [place] [address] Chloride [Moles/Vol] 106 mmol/L High 97-105 [facility] Comment on above: Order Comment: Speci men Type: BLOOD SPECIMENOrdering Facility: [facility] Address: [address] [place] [address] Performed By: #### 2 4323-8 ####[facility] LABCLIA [id number] [place] [address] CO2 [Moles/Vol] 26 mmol/L Normal 22-30 [facility] Comment on above: Order Comment: Speci men Type: BLOOD SPECIMENOrdering Facility: [facility] Address: [address] [place] [address] Performed By: #### 2 4323-8 ####[facility] LABCLIA [id number] [place] [address] Creatinine [Mass/Vol] 0.69 mg/dL Normal 0.58-0.96 [facility] Comment on above: Order Comment: Speci men Type: BLOOD SPECIMENOrdering Facility: [facility] Address: [address] [place] [address] Performed By: #### 2 4323-8 ####[facility] LABCLIA [id number] [place] [address] Creatinine and Glomerular filtration rate.predicted panel (S/P/Bld) 93 mL/min/1.73m??? Normal >=60 [facility] Comment on above: Order Comment: Speci men Type: BLOOD SPECIMENOrdering Facility: [facility] Address: [address] [place] [address] Result Comment: Zoila mated Glomerular Filtration Rate [...] actual GFR. Performed By: #### 2 4323-8 ####[facility] LABCLIA [id number] [place] [address] Glucose [Mass/Vol] 175 mg/dL High 74-99 [facility] Comment on above: Order Comment: Speci men Type: BLOOD SPECIMENOrdering Facility: [facility] Address: [address] [place], [place] [address] Result Comment: The [place] Diabetes Association (ADA) provides guidance for cutoff [...] Standards of Medical Care in Diabetes 2016, [place] [employer]. Diabetes Care. 2016.39(Suppl 1). Performed By: #### 2 4323-8 ####[facility] LABCLIA [id number] [place] [address] Potassium [Moles/Vol] 4.2 mmol/L Normal 3.7-5.1 [facility] Comment on above: Order Comment: Lupei zuri Type: BLOOD SPECIMENOrdering Facility: [facility] Address: [address] [place] [address] Performed By: #### 2 4323-8 ####[facility] LABCLIA [id number] [place] [address] Protein [Mass/Vol] 7.8 g/dL Normal 6.3-8.0 [facility] Comment on above: Order Comment: Sumit zuri Type: BLOOD SPECIMENOrdering Facility: [facility] Address: [address] [place] [address] Performed By: #### 2 4323-8 ####[facility] LABCLIA [id number] [place] [address] Sodium [Moles/Vol] 143 mmol/L Normal 136-144 [facility] Comment on above: Order Comment: Speci men Type: BLOOD SPECIMENOrdering Facility: [facility] Address: [address] [place], [place] [address] Performed By: #### 2 4323-8 ####[facility] LABCLIA [id number] [place] [address] Urea nitrogen [Mass/Vol] 15 mg/dL Normal 7-21 [facility] Comment on above: Order Comment: Speci men Type: BLOOD SPECIMENOrdering Facility: [facility] Address: [address] [place] [address] Performed By: #### 2 4323-8 ####[facility] LABCLIA [id number] [place] [address] INR in Platelet poor plasma by Coagulation assayon 03-03-2024 INR Coag (PPP) [Relative time] 1.0 {INR} 0.9-1.3 [facility] Comment on above: Vitamin K Antagonist (VKA) Therapeutic Range: INR 2 to 3 (Target INR of 2.5)Note: For patients treated with VKA drugs, such as warfarin, the [place] [employer] 2012 Guideline recommends [...] challengeon 03-03-2024 Albumin [Mass/Vol] 4.3 g/dL 3.9-4.9 [facility] ALP [Catalytic activity/Vol] 72 U/L 34-123 [facility] ALT [Catalytic activity/Vol] 16 U/L 7-38 [facility] AST [Catalytic activity/Vol] 17 U/L 13-35 [facility] Bilirubin [Mass/Vol] 0.5 mg/dL 0.2-1.3 [facility] Calcium [Mass/Vol] 9.8 mg/dL 8.5-10.2 [facility] Chloride [Moles/Vol] 106 mmol/L High 97-105 [facility] CO2 [Moles/Vol] 26 mmol/L 22-30 [facility] Creatinine [Mass/Vol] 0.69 mg/dL 0.58-0.96 [facility] Glucose [Mass/Vol] 175 mg/dL High 74-99 [facility] Comment on above: The [place] Diabete s Association (ADA) provides guidance for [...] Standards of Medical Care in Diabetes 2016, [place] [employer]. Diabetes Care. 2016.39(Suppl 1). Potassium [Moles/Vol] 4.2 mmol/L 3.7-5.1 [facility] Sodium [Moles/Vol] 143 mmol/L 136-144 [facility] Urea nitrogen [Mass/Vol] 15 mg/dL 7-21 [facility] No Panel Informationon 03-03 Estimated GFR (CKD-EPI) 93 mL/min/1.73m??? >=60 [facility] Comment on above: Estimated Glomerular Filtration [...] 1.0 {INR} 0.9 - 1.[address] [facility] Comment on above: Vitamin K Antagonist (VKA) Therapeutic Range: INR 2 to 3 (Target INR of 2.5) Note: For patients treated with VKA drugs, such as warfarin, the [place] [employer] 2012 Guideline recommends [...] Chest 2012, 141:7S-47S Alan RA, et al. [facility] 2017, 70: 252-289 Interpretation and review of laboratory results Normal [facility] PT Coag (PPP) [Time] 11.0 s [facility] INR Coag (PPP) [Relative time] 1.0 {INR} Normal 0.9-1.3 [facility] Comment on above: Order Comment: Speci men Type: BLOOD SPECIMENOrdering Facility: [facility] Address: [address] [place] [place] [address] Result Comment: Shayne min K Antagonist (VKA) Therapeutic Range: INR 2 to 3 (Target INR of 2.5) Note: For patients treated with VKA drugs, such as warfarin, the [place] [employer] 2012 Guideline recommends [...] Chest 2012, 141:7S-47S Alan RA, et al. [facility] 2017, 70: 252-289 Performed By: #### 3 4528-0 ####[facility] [id number] [place] [address] [place] PT Coag (PPP) [Time] 11.0 s Normal 9.7-13.0 [facility] Comment on above: Order Comment: Speci men Type: BLOOD SPECIMENOrdering Facility: [facility] Address: [address] [place] [address] Performed By: #### 3 4528-0 ####[facility] [id number] [place] [address] [place] Protein [Mass/volume] in Ser um or Plasmaon 03-03-2024 Protein [Mass/Vol] 7.8 g/dL 6.3-8.0 [facility] Prothrombin time (PT)on 02-10 PT Coag (PPP) [Time] 11.0 s 9.7-13.0 [facility] Serum or plasma anion gap de terminationon 03-03-2024 Anion gap [Moles/Vol] 11 mmol/L 06-29 [facility] CNOVon 02-17-2024 CNOV Office Visit (GASTNO ) -- MAGY CASTRO ([id number]) 1955 F Date Time Provider Department 02/17/24 [...] enteric cont (more content not included)... Normal [facility] CNPNon 02-15-2024 CNPN Telephone (HEMTSA) -- MAGY CASTRO ([id number]) 1955 F Date Time Provider Department 02/15/24 [...] (HCC) [C54.1] Order(s):CREATININE BLD [SQCRET] Order #: [id number] FUTURE Prescriptions as of 02/15/2024 - FIASP [...] Encounter Status:Closed by ЮЛИЯ ODOM on 02/15/[address] [facility] Aerobic Cultureon 02-04-2024 Aerobic Culture ORGANISM: [...] RESISTANT TO ALL B-LACTAM DRUGS. PERFORMED BY: [place] [address] PATHOLOGIST BUSINESS PERFORMANCE ANALYST LOCO PERRY M.D. Normal [facility] Comment on above: Performed By: #### G S, AERC #### [address] Gram Stainon 02-04-2024 Microscopic observation Gram stain Nom (Unsp spec) Gram Stain Result Rare Epithelial Cells Rare White Blood Cells No Bacteria Seen PERFORMED BY: [place] [address] PATHOLOGIST BUSINESS PERFORMANCE ANALYST LOCO PERRY M.D. Normal [facility] Comment on above: Performed By: #### G S, AERC #### [address] Gram stain for investigation of transfusion reactionOrdered By: Hien Poole on 02-04-2024 Microscopic observation Gram stain Nom (Unsp spec) Enterococcus faecalis Abnormal [facility] HbA1c HPLC (Bld) [Mass fract ion]on 12-15-2023 HbA1c (Bld) [Mass fraction] 7.8 % [facility] No Panel Informationon 12-14 Bedside Glucose 135 [facility] CNOVSPon 11-04-2023 CNOVSP Visit (SP) Office (G YNML) -- MAGY CASTRO ([id number]) 1955 F Date Time Provider Department 11/04/23 12:45 PM ЮЛИЯ ODOM GYN During your visit today, we recorded the following information about you: Temperature Pulse Respiration Blood pressure 96.8 degrees 69/minute 15/minute 140/73 Юлия Odom APRN.GANG HEAD SAW OPERATOR 11/07/2023 9:54 AM Signed DATE: 11/04/2023 PROBLEM: [...] present, cervix not involved HNPCC screening negative ER/IN: negative 2. Chemotherapy with Carboplatin and taxol [...] 06/2016 Pancre (more content not included)... Normal [facility] Bacteria identified Aer cx N om (Unsp spec)Ordered By: Judith Benitez on 09-15-2023 Superficial Wound Culture Staphylococcus aureus [facility] Superficial Wound Cultureon 09-15-2023 Superficial Wound [...] RESISTANT TO ALL B-LACTAM DRUGS. PERFORMED BY: [place] [address] PATHOLOGIST BUSINESS PERFORMANCE ANALYST LOCO PERRY M.D. Normal [facility] Comment on above: Performed By: #### C USUP #### [place] [id number] [place] A1C HEMOGLOBINon 09-09-2023 HbA1c (Bld) [Mass fraction] 8.3 % [facility] Other Glucose - FINGER STICKon Glucose [Mass/Vol] 175 mg/dL [facility] Other HbA1c (Bld) [Mass fraction]o n 09-09-2023 A1C HEMOGLOBIN [facility] Other MM screening mammo BI w/CADo n 07-15-2023 MM screening mammo BI w/CAD [facility] Main [employer] [address] [place], [place] [id number] Mammography Report Signed Patient: Magy Castro MR#: [id number] : 1955 Acct:[id number] Age/Sex: 67 / F ADM Date: 07/15/23 Loc: [place] Room: Type: [facility] Attending Dr: Referral Self Copies to: Sherman [...] Jennifer Yarbrough M.D.07/15/2023 2:50 PM Dictation Location: [facility] Transcribed By: SAL 07/15/23 1450 Dictated By: Jennifer Yarbrough MD 07/15/23 144 Signed By: 07/15/23 1450 Normal [facility] Alanine aminotransferase [En zymatic activity/volume] in Serum or PlasmaOrdered By: Sherman Larson on 03-31-2023 ALT [Catalytic activity/Vol] 17 U/L 7-52 [facility] Albumin [Mass/volume] in Ser um or Plasma by Bromocresol green (BCG) dye binding methoOrdered By: Sherman Larson on 03-31-2023 Albumin BCG dye [Mass/Vol] 4.1 g/dL 3.5-5.7 [facility] Alkaline phosphatase [Enzyma tic activity/volume] in Serum or PlasmaOrdered By: Sherman Larson on 03-31-2023 ALP [Catalytic activity/Vol] 55 U/L 34-104 [facility] Aspartate aminotransferase [ Enzymatic activity/volume] in Serum or PlasmaOrdered By: Sherman Larson on 03-31-2023 AST [Catalytic activity/Vol] 14 U/L 13-39 [facility] Basophils Auto (Bld) [#/Vol] Ordered By: Sherman Larson on 03-31-2023 Basophils (Bld) [#/Vol] 0.0 10*3/uL 0.0-0.2 [facility] Basophils/100 WBC Auto (Bld) Ordered By: Sherman Larson on 03-31-2023 Basophils/100 WBC (Bld) 0.6 % . [facility] Bilirubin.total [Mass/volume ] in Serum or PlasmaOrdered By: Sherman Larson on 03-31-2023 Bilirubin [Mass/Vol] 0.5 mg/dL 0.3-1.0 [facility] Calcium [Mass/volume] in Ser um or PlasmaOrdered By: Sherman Larson on 03-31-2023 Calcium [Mass/Vol] 9.2 mg/dL 8.6-10.3 [facility] Carbon dioxide, total [Moles /volume] in Serum or PlasmaOrdered By: Sherman Larson on 03-31-2023 CO2 [Moles/Vol] 24.9 mmol/L 21.0-31.0 [facility] Chloride [Moles/volume] in S cliff[place] or PlasmaOrdered By: Sherman Larson on 03-31-2023 Chloride [Moles/Vol] 103 mmol/L 98-107 [facility] Cholesterol [Mass/volume] in Serum or PlasmaOrdered By: Sherman Larson on 03-31-2023 Cholesterol [Mass/Vol] 144 mg/dL 140-200 [facility] Comment on above: Chol less than 200 m g/dl low riskChol 201-239 mg/dl borderline riskChol 240 mg/dl and greater high risk Cholesterol in LDL Calc [Mas s/Vol]Ordered By: Sherman Lrason on 03-31-2023 Cholesterol in LDL [Mass/Vol] 61 mg/dL 0-100 [facility] Comment on above: LDL ATP III CLASSIFI CATIONLDL less than 100 mg/dL OptimalLDL 100-129 mg/dL Near or above optimalLDL 130-159 mg/dL Borderline highLDL 160-189 mg/dL HighLDL greater than 189 mg/dL Very high Cholesterol in VLDL Calc [Ma ss/Vol]Ordered By: Sherman Larson on 03-31-2023 Cholesterol in VLDL [Mass/Vol] 43 mg/dL [facility] Creatinine [Mass/volume] in Serum or PlasmaOrdered By: Sherman Larson on 03-31-2023 Creatinine [Mass/Vol] 0.68 mg/dL 0.60-1.20 [facility] Creatinine [Mass/volume] in UrineOrdered By: Rosanne Dumont on 03-31-2023 Creatinine (U) [Mass/Vol] 70.0 mg/dL 11.0-20.0 [facility] Eosinophils Auto (Bld) [#/Vo l]Ordered By: Sherman Larson on 03-31-2023 Eosinophils (Bld) [#/Vol] 0.1 10*3/uL 0.0-0.45 [facility] Eosinophils/100 WBC Auto (Bl d)Ordered By: Sherman Larson on 03-31-2023 Eosinophils/100 WBC (Bld) 2.0 % . [facility] Erythrocyte distribution wid th Auto (RBC) [Ratio]Ordered By: Sherman Larson on 03-31-2023 Erythrocyte distribution width (RBC) [Ratio] 17.0 % 11.9-15.3 [facility] Globulin Calc (S) [Mass/Vol] Ordered By: Sherman Larson on 03-31-2023 Globulin (S) [Mass/Vol] 3.1 g/dL [facility] Glucose [Mass/volume] in Ser um or PlasmaOrdered By: Sherman Larson on 03-31-2023 Glucose [Mass/Vol] 139 mg/dL 70-100 [facility] Comment on above: ADA recommended refe rence rangeRandom Glucose Reference Range is dependent on time and content of last meal. Glucose of more than 200 mg/dL in a nonstressed, ambulatory subject supports the diagnosis of Diabetes Mellitus. Hematocrit Auto (Bld) [Volum e fraction]Ordered By: Sherman Larson on 03-31-2023 Hematocrit (Bld) [Volume fraction] 43.0 % 34.0-46.4 [facility] Hemoglobin [Mass/volume] in BloodOrdered By: Sherman Larson on 03-31-2023 Hemoglobin (Bld) [Mass/Vol] 13.9 g/dL 11.8-15.4 [facility] Leukocytes [#/volume] correc kedar for nucleated erythrocytes in Blood by Automated counOrdered By: Sherman Larson on 03-31-2023 WBC corrected for nucl RBC Auto (Bld) [#/Vol] 7.2 10*3/uL 3.8-11.6 [facility] Lymphocytes Auto (Bld) [#/Vo l]Ordered By: Sherman Larson on 03-31-2023 Lymphocytes (Bld) [#/Vol] 1.8 10*3/uL 1.00-4.8 [facility] Lymphocytes/100 WBC Auto (Bl d)Ordered By: Sherman Larson on 03-31-2023 Lymphocytes/100 WBC (Bld) 25.6 % . [facility] MCH Auto (RBC) [Entitic mass ]Ordered By: Sherman Larson on 03-31-2023 MCH (RBC) [Entitic mass] 26.9 pg 24.7-34.3 [facility] MCHC Auto (RBC) [Mass/Vol]Or dered By: Sherman Larson on 03-31-2023 MCHC (RBC) [Mass/Vol] 32.4 g/dL 32.0-35.0 [facility] MCV Auto (RBC) [Entitic vol] Ordered By: Sherman Larson on 03-31-2023 MCV (RBC) [Entitic vol] 82.9 fL 80-100 [facility] Microalbumin [Mass/volume] i n UrineOrdered By: Rosanne Dumont on 03-31-2023 Albumin DL <= 20 mg/L (U) [Mass/Vol] 0.9 mg/dL 0.0-1.8 [facility] Monocytes Auto (Bld) [#/Vol] Ordered By: Sherman Larson on 03-31-2023 Monocytes (Bld) [#/Vol] 0.5 10*3/uL 0.0-0.8 [facility] Monocytes/100 WBC Auto (Bld) Ordered By: Sherman Larson on 03-31-2023 Monocytes/100 WBC (Bld) 7.5 % . [facility] Neutrophils Auto (Bld) [#/Vo l]Ordered By: Sherman Larson on 03-31-2023 Neutrophils (Bld) [#/Vol] 4.6 10*3/uL 1.8-7.7 [facility] Neutrophils/100 WBC Auto (Bl d)Ordered By: Sherman Larson on 03-31-2023 Neutrophils/100 WBC (Bld) 64.3 % . [facility] No Panel InformationOrdered By: Sherman Larson on 03-31-2023 Estimated GFR (CKD-EPI) > 60.0 mL/Min [facility] Creatinine Clearance (Chem N/A [facility] Nucleated erythrocytes [Pres ence] in Blood by Automated countOrdered By: Sherman Larson on 03-31-2023 Nucleated RBC Auto Ql (Bld) 0.1 /100{WBC} 0-0.5 [facility] Platelet mean volume Auto (B ld) [Entitic vol]Ordered By: Sherman Larson on 03-31-2023 Platelet mean volume (Bld) [Entitic vol] 7.4 fL 6.3-10.7 [facility] Platelets Auto (Bld) [#/Vol] Ordered By: Sherman Larson on 03-31-2023 Platelets (Bld) [#/Vol] 298 10*3/uL 150-450 [facility] Potassium [Moles/volume] in Serum or PlasmaOrdered By: Sherman Larson on 03-31-2023 Potassium [Moles/Vol] 4.1 mmol/L 3.5-5.1 [facility] Protein [Mass/volume] in Ser um or PlasmaOrdered By: Sherman Larson on 03-31-2023 Protein [Mass/Vol] 7.2 g/dL 6.4-8.9 [facility] RBC Auto (Bld) [#/Vol]Ordere d By: Sherman Larson on 03-31-2023 RBC (Bld) [#/Vol] 5.19 10*6/uL 3.60-5.00 [facility] Serum or plasma albumin/glob ulin mass ratioOrdered By: Sherman Larson on 03-31-2023 Albumin/Globulin [Mass ratio] 1.3 {ratio} [facility] Serum or plasma anion gap de terminationOrdered By: Sherman Larson on 03-31-2023 Anion gap [Moles/Vol] 12.2 mmol/L 6.0-15.0 [facility] Serum or plasma high density lipoprotein (HDL) cholesterol measurementOrdered By: Sherman Larson on 03-31-2023 Cholesterol in HDL [Mass/Vol] 39 mg/dL 23-92 [facility] Comment on above: HDL CHOL ATP-III CLA SSIFICATION Cardiovascular RiskHDL > or equal to 60 mg/dL LOWHDL < 40 mg/dL HIGH Serum or plasma total choles terol/high density lipoprotein (HDL) cholesterol mass ratOrdered By: Sherman Larson on 03-31-2023 Cholesterol.total/Cho lesterol in HDL [Mass ratio] 3.7 {ratio} <5.0 [facility] Sodium [Moles/volume] in Ser um or PlasmaOrdered By: Sherman Larson on 03-31-2023 Sodium [Moles/Vol] 136 mmol/L 136-145 [facility] Thyrotropin [Units/volume] i n Serum or PlasmaOrdered By: Sherman Larson on 03-31-2023 TSH Qn 2.43 m[IU]/L 0.45-5.33 [facility] Triglyceride [Mass/volume] i n Serum or PlasmaOrdered By: Sherman Larson on 03-31-2023 Triglyceride [Mass/Vol] 218 mg/dL 0-149 [facility] Comment on above: TRIG ATP III CLASSIF ICATIONTRIG less than 150 mg/dL NormalTRIG 150-199 mg/dL Borderline highTRIG 200-500 mg/dL High TRIG greater than 500 mg/dL Very highStandard traceable to the Center for Disease Conrtrol and Prevention (CDC) test method. Urea nitrogen [Mass/volume] in Serum or PlasmaOrdered By: Sherman Larson on 03-31-2023 Urea nitrogen [Mass/Vol] 19 mg/dL 7-25 [facility] Urine microalbumin/creatinin e mass ratioOrdered By: Rosanne Dumont on 03-31-2023 Albumin/Creatinine DL <= 20 mg/L (U) [Mass ratio] 12.0 mg/g 0.0-30.0 [facility] Comment on above: 30-300 mg/g indicate s an increased risk for diabetic nephropathy. Greater than 300 mg/g is consistent with clinical nephropathy. (Am. J. Kidney Disease 1995, 25:107) Vitamin B12 ser/plasOrdered By: Rosanne Dumont on 03-31-2023 Cobalamin (Vitamin B12) [Mass/Vol] 221 pg/mL 180-914 [facility] WBC Auto (Bld) [#/Vol]Ordere d By: Sherman Larson on 03-31-2023 WBC (Bld) [#/Vol] 7.2 10*3/uL 3.8-11.6 [facility] EGD - THERAPEUTIC, EUS, OR T UBE INTERVENTIONSon 02-19-[address] [facility] GLUCOSE, BLOOD (POC)on 02-19 Glucose [Mass/Vol] 198 mg/dL Abnormal 74 - 99 mg/dL [facility] Glucose [Mass/Vol] 175 mg/dL Abnormal 74 - 99 mg/dL [facility] A1C HEMOGLOBINon 02-10-2023 HbA1c (Bld) [Mass fraction] 7.3 % [facility] Other Glucose - [facility] Glucose [Mass/Vol] 167 mg/dL [facility] Other HbA1c (Bld) [Mass fraction]o n 02-10-2023 A1C HEMOGLOBIN [place] Other A1C HEMOGLOBINon 11-04-2022 HbA1c (Bld) [Mass fraction] 7.9 % [facility] Other Glucose - [facility] Glucose [Mass/Vol] 212 mg/dL [facility] Other HbA1c (Bld) [Mass fraction]o n 11-04-2022 A1C HEMOGLOBIN [place] Other A1C HEMOGLOBINon 07-21-2022 HbA1c (Bld) [Mass fraction] 8.2 % [facility] Other Glucose - [facility] Glucose [Mass/Vol] 243 mg/dL [facility] Other HbA1c (Bld) [Mass fraction]o n 07-21-2022 A1C HEMOGLOBIN [place] Other A1C HEMOGLOBINon 04-09-2022 HbA1c (Bld) [Mass fraction] 7.1 % [facility] Other Glucose - [facility] Glucose [Mass/Vol] 253 mg/dL [facility] Other HbA1c (Bld) [Mass fraction]o n 04-09-2022 A1C HEMOGLOBIN [place] Other A1C HEMOGLOBINon 12-18-2021 HbA1c (Bld) [Mass fraction] 7 % [facility] Other Glucose - [facility] Glucose [Mass/Vol] 200 mg/dL [facility] Other HbA1c (Bld) [Mass fraction]o n 12-18-2021 A1C HEMOGLOBIN [place] Other A1C HEMOGLOBINon 09-10-2021 HbA1c (Bld) [Mass fraction] 7.2 % [facility] Other Glucose - [facility] Glucose [Mass/Vol] 247 mg/dL [facility] Other HbA1c (Bld) [Mass fraction]o n 09-10-2021 A1C HEMOGLOBIN [place] Other Vital Signs Date Time Vital Sign Value Performing Clinician Facility 06-28-2024 09:51-0400 Body height 162.56 cm DO Sherman Larson Work Phone: [facility] 06-28-2024 09:51-0400 Body mass index (BMI) [Ratio] 44.1 kg/m2 DO Sherman Larson Work Phone: [facility] 06-28-2024 09:51-0400 Body temperature 95 [degF] DO Sherman Larson Work Phone: [facility] 06-28-2024 09:51-0400 Body weight 116.82 kg DO Sherman Larson Work Phone: [facility] 06-28-2024 09:51-0400 Diastolic blood pressure 73 mm[Hg] DO Sherman Larson Work Phone: [facility] 06-28-2024 09:51-0400 Heart rate 75 /min DO Sherman Kuns Work Phone: [facility] 06-28-2024 09:51-0400 Respiratory rate 18 /min DO Sherman Kuns Work Phone: [facility] 06-28-2024 09:51-0400 SaO2% (BldA) [Mass fraction] 95 % DO Shermna Kuns Work Phone: [facility] 06-28-2024 09:51-0400 Systolic blood pressure 126 mm[Hg] DO Sherman Kuns Work Phone: [facility] 06-21-2024 10:19-0400 Body height 162.56 cm DO Sherman Kuns Work Phone: [facility] 06-21-2024 10:19-0400 Body mass index (BMI) [Ratio] 44.4 kg/m2 DO Sherman Kuns Work Phone: [facility] 06-21-2024 10:19-0400 Body weight 117.48 kg DO Sherman Kuns Work Phone: [facility] 06-21-2024 10:08-0400 Body temperature 97.2 [degF] DO Sherman Kuns Work Phone: [facility] 06-21-2024 10:08-0400 Diastolic blood pressure 64 mm[Hg] DO Sherman Kuns Work Phone: [facility] 06-21-2024 10:08-0400 Heart rate 90 /min DO Sherman Kuns Work Phone: [facility] 06-21-2024 10:08-0400 Respiratory rate 18 /min DO Sherman Kuns Work Phone: [facility] 06-21-2024 10:08-0400 Systolic blood pressure 147 mm[Hg] DO Sherman Kuns Work Phone: [facility] 06-01-2024 09:02-0400 Body mass index (BMI) [Ratio] 44.69 kg/m2 Jules Navas MD Work Phone: [facility] 06-01-2024 09:02-0400 Body temperature 97.81 [degF] Jules Navas MD Work Phone: [facility] 06-01-2024 09:02-0400 Body weight 118.1 kg Jules Navas MD Work Phone: [facility] 06-01-2024 09:02-0400 Diastolic blood pressure 65 mm[Hg] Jules Navas MD Work Phone: [facility] 06-01-2024 09:02-0400 Heart rate 92 /min Jules Navas MD Work Phone: [facility] 06-01-2024 09:02-0400 Respiratory rate 18 /min Jules Navas MD Work Phone: [facility] 06-01-2024 09:02-0400 SaO2% (BldA) [Mass fraction] 96 % Jules Navas MD Work Phone: [facility] 06-01-2024 09:02-0400 Systolic blood pressure 155 mm[Hg] Jules Navas MD Work Phone: [facility] 05-30-2024 08:50-0400 Body height 162.56 cm DO Sherman Larson Work Phone: [facility] 05-30-2024 08:50-0400 Body mass index (BMI) [Ratio] 44.6 kg/m2 DO Sherman Larson Work Phone: [facility] 05-30-2024 08:50-0400 Body weight 117.93 kg DO Sherman Larson Work Phone: [facility] 05-30-2024 08:50-0400 Diastolic blood pressure 62 mm[Hg] DO Sherman Larson Work Phone: [facility] 05-30-2024 08:50-0400 Heart rate 76 /min DO Sherman Kuns Work Phone: [facility] 05-30-2024 08:50-0400 Respiratory rate 16 /min DO Sherman Kuns Work Phone: [facility] 05-30-2024 08:50-0400 SaO2% (BldA) [Mass fraction] 97 % DO Sherman Kuns Work Phone: [facility] 05-30-2024 08:50-0400 Systolic blood pressure 122 mm[Hg] DO Sherman Kuns Work Phone: [facility] 05-26-2024 14:11-0400 Body height 162.56 cm DO Sherman Kuns Work Phone: [facility] 05-26-2024 14:11-0400 Body mass index (BMI) [Ratio] 44.4 kg/m2 DO Sherman Kuns Work Phone: [facility] 05-26-2024 14:11-0400 Body weight 117.48 kg DO Sherman Kuns Work Phone: [facility] 05-26-2024 13:54-0400 Body temperature 98.1 [degF] DO Sherman Kuns Work Phone: [facility] 05-26-2024 13:54-0400 Diastolic blood pressure 75 mm[Hg] DO Sherman Kuns Work Phone: [facility] 05-26-2024 13:54-0400 Heart rate 90 /min DO Sherman Kuns Work Phone: [facility] 05-26-2024 13:54-0400 Respiratory rate 24 /min DO Sherman Kuns Work Phone: [facility] 05-26-2024 13:54-0400 Systolic blood pressure 134 mm[Hg] DO Sherman Kuns Work Phone: [facility] 03-22-2024 09:57-0400 Body height 162.56 cm DO Sherman Kuns Work Phone: [facility] 03-22-2024 09:57-0400 Body mass index (BMI) [Ratio] 44.5 kg/m2 DO Sherman Kuns Work Phone: [facility] 03-22-2024 09:57-0400 Body weight 117.7 kg DO Sherman Kuns Work Phone: [facility] 03-22-2024 09:57-0400 Diastolic blood pressure 78 mm[Hg] DO Sherman Kuns Work Phone: [facility] 03-22-2024 09:57-0400 Heart rate 80 /min DO Sherman Kuns Work Phone: [facility] 03-22-2024 09:57-0400 Respiratory rate 18 /min DO Sherman Stephans Work Phone: [facility] 03-22-2024 09:57-0400 SaO2% (BldA) [Mass fraction] 98 % DO Sherman Kuns Work Phone: [facility] 03-22-2024 09:57-0400 Systolic blood pressure 137 mm[Hg] DO Sherman Stephans Work Phone: [facility] 03-08-2024 13:26-0400 Body temperature 97.3 [degF] DO Sherman Stephans Work Phone: [facility] 03-08-2024 13:26-0400 Diastolic blood pressure 73 mm[Hg] DO Sherman Kuns Work Phone: [facility] 03-08-2024 13:26-0400 Heart rate 95 /min DO Sherman Kuns Work Phone: [facility] 03-08-2024 13:26-0400 Respiratory rate 20 /min DO Sherman Kuns Work Phone: [facility] 03-08-2024 13:26-0400 Systolic blood pressure 141 mm[Hg] DO Sherman Larson Work Phone: [facility] 03-01-2024 09:06-0400 Body height 162.56 cm DO Sherman Stephanfaby Work Phone: [facility] 03-01-2024 09:06-0400 Body mass index (BMI) [Ratio] 44.4 kg/m2 DO Sherman Larson Work Phone: [facility] 03-01-2024 09:06-0400 Body weight 117.48 kg DO Sherman Larson Work Phone: [facility] 02-17-2024 11:11-0400 Body height 162.6 cm Alley Marcanoraro PA-C Work Phone: [facility] 02-17-2024 11:11-0400 Body mass index (BMI) [Ratio] 44.97 kg/m2 Alley Yacapraro PA-C Work Phone: [facility] 02-17-2024 11:11-0400 Body weight 118.84 kg Alley Yacapraro PA-C Work Phone: [facility] 02-17-2024 11:11-0400 Diastolic blood pressure 78 mm[Hg] Alley Cabacapraro PA-C Work Phone: [facility] 02-17-2024 11:11-0400 Heart rate 85 /min Alley Yacapraro PA-C Work Phone: [facility] 02-17-2024 11:11-0400 Systolic blood pressure 126 mm[Hg] Alley Yacapraro PA-C Work Phone: [facility] 02-11-2024 10:53-0400 Body height 160.66 cm DO Sherman Larson Work Phone: [facility] 02-11-2024 10:53-0400 Body mass index (BMI) [Ratio] 46.1 kg/m2 DO Shermanleonor Rothmans Work Phone: [facility] 02-11-2024 10:53-0400 Body weight 119.06 kg DO Sherman Kuns Work Phone: [facility] 02-11-2024 10:53-0400 Diastolic blood pressure 55 mm[Hg] DO Sherman Kuns Work Phone: [facility] 02-11-2024 10:53-0400 Heart rate 86 /min DO Sherman Kuns Work Phone: [facility] 02-11-2024 10:53-0400 Respiratory rate 20 /min DO Sherman Kuns Work Phone: [facility] 02-11-2024 10:53-0400 SaO2% (BldA) [Mass fraction] 99 % DO Sherman Kuns Work Phone: [facility] 02-11-2024 10:53-0400 Systolic blood pressure 132 mm[Hg] DO Sherman Kuns Work Phone: [facility] 12-15-2023 10:32-0500 Body height 161.29 cm DO Sherman Kuns Work Phone: [facility] 12-15-2023 10:32-0500 Body mass index (BMI) [Ratio] 45.6 kg/m2 DO Sherman Kuns Work Phone: [facility] 12-15-2023 10:32-0500 Body weight 118.84 kg DO Sherman Kuns Work Phone: [facility] 12-15-2023 10:32-0500 Diastolic blood pressure 67 mm[Hg] DO Sherman Kuns Work Phone: [facility] 12-15-2023 10:32-0500 Heart rate 81 /min DO Sherman Kuns Work Phone: [facility] 12-15-2023 10:32-0500 Respiratory rate 18 /min DO Sherman Kuns Work Phone: [facility] 12-15-2023 10:32-0500 SaO2% (BldA) [Mass fraction] 96 % DO Sherman Larson Work Phone: [facility] 12-15-2023 10:32-0500 Systolic blood pressure 129 mm[Hg] DO Sherman Larson Work Phone: [facility] 10-19-2023 08:30-0500 Body height 161.29 cm Sherman Larson Other [facility] 10-19-2023 08:30-0500 Body mass index (BMI) [Ratio] 45.16 kg/m2 Sherman Larson Other [facility] [employer] Other 10-19-2023 08:30-0500 Body weight 117.48 kg Sherman Larson Other [facility] 10-19-2023 08:30-0500 Diastolic blood pressure 70 mm[Hg] Sherman Larson Other [facility] 10-19-2023 08:30-0500 Respiratory rate 18 /min Sherman Larson Other [facility] [employer] Other 10-19-2023 08:30-0500 SaO2% (BldA) [Mass fraction] 98 % Sherman Larson Other [facility] [employer] Other 10-19-2023 08:30-0500 Systolic blood pressure 126 mm[Hg] Sherman Rothmanfaby Other [facility] 09-09-2023 09:45-0500 Body height 161.29 cm Tondra Mapus Other [facility] 09-09-2023 09:45-0500 Body mass index (BMI) [Ratio] 45.97 kg/m2 Tondra Mapus Other [facility] Other 09-09-2023 09:45-0500 Body weight 119.61 kg Tondra Mapus Other [facility] 09-09-2023 09:45-0500 Diastolic blood pressure 75 mm[Hg] Tondra Mapus Other [facility] 09-09-2023 09:45-0500 Respiratory rate 18 /min Tondra Mapus Other [facility] Other 09-09-2023 09:45-0500 SaO2% (BldA) [Mass fraction] 97 % Tondra Mapus Other [facility] Other 09-09-2023 09:45-0500 Systolic blood pressure 116 mm[Hg] Tondra Mapus Other [facility] 06-29-2023 09:36-0400 Body height 160.02 cm DO Sherman Stephans Work Phone: [facility] 06-29-2023 09:36-0400 Body mass index (BMI) [Ratio] 46 kg/m2 DO Sherman Stephans Work Phone: [facility] 06-29-2023 09:36-0400 Body weight 117.93 kg DO Sherman Kuns Work Phone: [facility] 06-29-2023 09:30-0400 Body temperature 97.6 [degF] DO Sherman Kuns Work Phone: [facility] 06-29-2023 09:30-0400 Diastolic blood pressure 70 mm[Hg] DO Sherman Kuns Work Phone: [facility] 06-29-2023 09:30-0400 Heart rate 92 /min DO Sherman Kuns Work Phone: [facility] 06-29-2023 09:30-0400 Respiratory rate 20 /min DO Sherman Kuns Work Phone: [facility] 06-29-2023 09:30-0400 Systolic blood pressure 145 mm[Hg] DO Sherman Kuns Work Phone: [facility] 04-30-2023 09:07-0400 Body height 162.56 cm DO Sherman Kuns Work Phone: [facility] 04-30-2023 09:07-0400 Body mass index (BMI) [Ratio] 44.6 kg/m2 DO Sherman Kuns Work Phone: [facility] 04-30-2023 09:07-0400 Body weight 117.93 kg DO Sherman Kuns Work Phone: [facility] 04-30-2023 08:58-0400 Body temperature 97.7 [degF] DO Sherman Kuns Work Phone: [facility] 04-30-2023 08:58-0400 Diastolic blood pressure 89 mm[Hg] DO Sherman Kuns Work Phone: [facility] 04-30-2023 08:58-0400 Heart rate 88 /min DO Sherman Kuns Work Phone: [facility] 04-30-2023 08:58-0400 Respiratory rate 18 /min DO Sherman Kuns Work Phone: [facility] 04-30-2023 08:58-0400 Systolic blood pressure 113 mm[Hg] DO Sherman Kuns Work Phone: [facility] 03-30-2023 09:02-0400 Body temperature 97.8 [degF] DO Sherman Kuns Work Phone: [facility] 03-30-2023 09:02-0400 Diastolic blood pressure 79 mm[Hg] DO Sherman Kuns Work Phone: [facility] 03-30-2023 09:02-0400 Heart rate 97 /min DO Sherman Larson Work Phone: [facility] 03-30-2023 09:02-0400 Respiratory rate 20 /min DO Sherman Larson Work Phone: [facility] 03-30-2023 09:02-0400 Systolic blood pressure 138 mm[Hg] DO Sherman Larson Work Phone: [facility] 03-25-2023 14:58-0400 Body height 162.56 cm DO Sherman Larson Work Phone: [facility] 03-25-2023 14:58-0400 Body mass index (BMI) [Ratio] 44.6 kg/m2 DO Sherman Larson Work Phone: [facility] 03-25-2023 14:58-0400 Body weight 117.93 kg DO Sherman Larson Work Phone: [facility] 02-19-2023 15:15-0400 Diastolic blood pressure 58 mm[Hg] Lior Linton MD Work Phone: [facility] 02-19-2023 15:15-0400 Heart rate 85 /min Lior Linton MD Work Phone: [facility] 02-19-2023 15:15-0400 Respiratory rate 16 /min Lior Linton MD Work Phone: [facility] 02-19-2023 15:15-0400 SaO2% (BldA) [Mass fraction] 99 % Lior Linton MD Work Phone: [facility] 02-19-2023 15:15-0400 Systolic blood pressure 132 mm[Hg] Lior Linton MD Work Phone: [facility] 02-19-2023 14:44-0400 Body temperature 96.8 [degF] Lior Linton MD Work Phone: [facility] 02-10-2023 10:15-0400 Body height 161.29 cm Tondra Mapus Other [facility] Other 02-10-2023 10:15-0400 Body mass index (BMI) [Ratio] 46.2 kg/m2 Tondra Mapus Other [facility] Other 02-10-2023 10:15-0400 Body weight 120.2 kg Tondra Mapus Other [facility] Other 02-10-2023 10:15-0400 Diastolic blood pressure 77 mm[Hg] Tondra Mapus Other [facility] Other 02-10-2023 10:15-0400 Respiratory rate 18 /min Tondra Mapus Other [facility] Other 02-10-2023 10:15-0400 SaO2% (BldA) [Mass fraction] 98 % Tondra Mapus Other [facility] Other 02-10-2023 10:15-0400 Systolic blood pressure 138 mm[Hg] Tondra Mapus Other [facility] Other 02-02-2023 08:26-0400 Body height 161.3 cm [facility] 02-02-2023 08:26-0400 Body weight 117.94 kg [facility] 01-07-2023 09:51-0400 Body weight 120.2 kg Lior Linton MD Work Phone: [facility] 01-07-2023 09:51-0400 Diastolic blood pressure 86 mm[Hg] Lior Linton MD Work Phone: [facility] 01-07-2023 09:51-0400 Heart rate 91 /min Lior Linton MD Work Phone: [facility] 01-07-2023 09:51-0400 Systolic blood pressure 156 mm[Hg] Lior Linton MD Work Phone: [facility] 11-04-2022 10:15-0500 Body height 161.29 cm Tondra Mapus Other [facility] Other 11-04-2022 10:15-0500 Body mass index (BMI) [Ratio] 45.84 kg/m2 Tondra Mapus Other [facility] Other 11-04-2022 10:15-0500 Body weight 119.25 kg Tondra Mapus Other [facility] Other 11-04-2022 10:15-0500 Diastolic blood pressure 63 mm[Hg] Tondra Mapus Other [facility] Other 11-04-2022 10:15-0500 Respiratory rate 18 /min Tondra Mapus Other [facility] Other 11-04-2022 10:15-0500 SaO2% (BldA) [Mass fraction] 97 % Tondra Mapus Other [facility] Other 11-04-2022 10:15-0500 Systolic blood pressure 138 mm[Hg] Tondra Mapus Other [facility] Other 09-24-2022 09:45-0500 Body height 161.29 cm Sherman Larson Other [facility] Other 09-24-2022 09:45-0500 Body mass index (BMI) [Ratio] 45.57 kg/m2 Sherman Larson Other [facility] Other 09-24-2022 09:45-0500 Body weight 118.57 kg Sherman Larson Other [facility] Other 09-24-2022 09:45-0500 Diastolic blood pressure 62 mm[Hg] Sherman Larson Other [facility] Other 09-24-2022 09:45-0500 Respiratory rate 16 /min Sherman Larson Other [facility] Other 09-24-2022 09:45-0500 SaO2% (BldA) [Mass fraction] 96 % Sherman Larson Other [facility] Other 09-24-2022 09:45-0500 Systolic blood pressure 124 mm[Hg] Sherman Larson Other [facility] Other 09-17-2022 09:43-0500 Body temperature 97.59 [degF] Юлия Odom APRN.CNP Work Phone: [facility] 09-17-2022 09:43-0500 Body weight 120.2 kg Юлия Odom APRN.[employer]PERATOR Work Phone: [facility] 09-17-2022 09:43-0500 Diastolic blood pressure 55 mm[Hg] Юлия Odom APRN.[employer] SAW OPERATOR Work Phone: [facility] 09-17-2022 09:43-0500 Heart rate 81 /min Юлия Odom APRN.[employer] SAW OPERATOR Work Phone: [facility] 09-17-2022 09:43-0500 Respiratory rate 14 /min Юлия Odom APRN.[employer] SAW OPERATOR Work Phone: [facility] 09-17-2022 09:43-0500 Systolic blood pressure 143 mm[Hg] Юлия Reshma [facility] Work Phone: [facility] 07-21-2022 10:15-0400 Body height 161.29 cm Tondra Mapus Other [facility] Other 07-21-2022 10:15-0400 Body mass index (BMI) [Ratio] 46.03 kg/m2 Tondra Mapus Other [facility] Other 07-21-2022 10:15-0400 Body weight 119.75 kg Tondra Mapus Other [facility] Other 07-21-2022 10:15-0400 Diastolic blood pressure 60 mm[Hg] Tondra Mapus Other [facility] Other 07-21-2022 10:15-0400 Respiratory rate 16 /min Tondra Mapus Other [facility] Other 07-21-2022 10:15-0400 SaO2% (BldA) [Mass fraction] 96 % Tondra Mapus Other [facility] Other 07-21-2022 10:15-0400 Systolic blood pressure 141 mm[Hg] Tondra Mapus Other [facility] Other 04-09-2022 10:15-0400 Body height 161.29 cm Tondra Mapus Other [facility] Other 04-09-2022 10:15-0400 Body mass index (BMI) [Ratio] 47.42 kg/m2 Tondra Mapus Other [facility] Other 04-09-2022 10:15-0400 Body weight 123.38 kg Tondra Mapus Other [facility] Other 04-09-2022 10:15-0400 Diastolic blood pressure 65 mm[Hg] Tondra Mapus Other [facility] Other 04-09-2022 10:15-0400 Respiratory rate 16 /min Tondra Mapus Other [facility] Other 04-09-2022 10:15-0400 SaO2% (BldA) [Mass fraction] 97 % Tondra Mapus Other [facility] Other 04-09-2022 10:15-0400 Systolic blood pressure 132 mm[Hg] Tondra Mapus Other [facility] Other 12-18-2021 10:45-0500 Body height 161.29 cm Tondra Mapus Other [facility] Other 12-18-2021 10:45-0500 Body mass index (BMI) [Ratio] 47.6 kg/m2 Tondra Mapus Other [facility] Other 12-18-2021 10:45-0500 Body weight 123.83 kg Tondra Mapus Other [employer] Other 12-18-2021 10:45-0500 Diastolic blood pressure 74 mm[Hg] Tondra Mapus Other [employer] [facility] Other 12-18-2021 10:45-0500 Respiratory rate 16 /min Tondra Mapus Other [employer] [facility] Other 12-18-2021 10:45-0500 SaO2% (BldA) [Mass fraction] 97 % Tondrcamilo Lazarous Other [employer] [facility] Other 12-18-2021 10:45-0500 Systolic blood pressure 120 mm[Hg] Tondra Mapus Other [employer] [facility] Other 09-23-2021 09:30-0500 Body height 161.29 cm Sherman Larson Other [employer] [facility] Other 09-23-2021 09:30-0500 Body mass index (BMI) [Ratio] 47.42 kg/m2 Sherman Larson Other [employer] [facility] Other 09-23-2021 09:30-0500 Body weight 123.38 kg Sherman Larson Other [employer] [facility] Other 09-23-2021 09:30-0500 Diastolic blood pressure 60 mm[Hg] Sherman Larson Other [employer] [facility] Other 09-23-2021 09:30-0500 Respiratory rate 16 /min Sherman Larson Other [employer] [facility] Other 09-23-2021 09:30-0500 SaO2% (BldA) [Mass fraction] 98 % Sherman Larson Other [employer] Other 09-23-2021 09:30-0500 Systolic blood pressure 126 mm[Hg] Sherman Larson Other [employer] [facility] Other 09-10-2021 11:45-0500 Body height 161.29 cm Tondra Mapus Other [employer] [facility] Other 09-10-2021 11:45-0500 Body mass index (BMI) [Ratio] 47.94 kg/m2 Tondra Mapus Other [employer] [facility] Other 09-10-2021 11:45-0500 Body weight 124.74 kg Tondra Mapus Other [employer] [facility] Other 09-10-2021 11:45-0500 Diastolic blood pressure 63 mm[Hg] Tondra Mapus Other [employer] [facility] Other 09-10-2021 11:45-0500 Respiratory rate 20 /min Tondra Mapus Other [employer] [facility] Other 09-10-2021 11:45-0500 SaO2% (BldA) [Mass fraction] 96 % Tondra Mapus Other [employer] [facility] Other 09-10-2021 11:45-0500 Systolic blood pressure 121 mm[Hg] Tondra Mapus Other [employer] Other Encounters Encounter Date Encounter Type Care Provider Facility Start: 06-28-2024 End: 06-28-2024 ambulatory DO Sherman Larson Work Phone: [facility] Work Phone: Start: 06-28-2024 End: 06-28-2024 Patient encounter procedure DO Sherman Larson Work Phone: [facility] Work Phone: Start: 06-21-2024 ambulatory Hien Rodriguezsey Facility:[facility] Start: 06-21-2024 Registered Recurring DO Sherman Larson Work Phone: [facility] Work Phone: Start: 06-01-2024 End: 06-01-2024 ambulatory SHERMAN LARSON Facility:[facility] Start: 06-01-2024 End: 06-01-2024 Follow-up encounter Jules Navas MD Work Phone: Gynecology Oncology Comment on above: Encounter for follow -up surveillance of endometrial cancer (Primary Dx); Pulmonary nodule; Adenopathy Start: 06-01-2024 End: 06-01-2024 Patient encounter procedure Jules Navas MD Work Phone: Gynecology Oncology Start: 05-30-2024 End: 05-30-2024 ambulatory DO Sherman Larson Work Phone: [facility] Work Phone: Start: 05-30-2024 End: 05-30-2024 Patient encounter procedure DO Sherman Larson Work Phone: [facility] Work Phone: Start: 05-26-2024 Registered Recurring DO Sherman Larson Work Phone: [facility] Work Phone: Start: 05-26-2024 End: 05-26-2024 ambulatory SHERMAN LARSON Facility:[facility] Start: 05-26-2024 End: 05-26-2024 Subsequent hospital visit by physician Arrival Time Radiology Work Phone: Radiology [facility] Comment on above: Lung nodules [R91.8] Start: 04-28-2024 Non-patient / Non-visit DO Sherman Larson Work Phone: [facility] Work Phone: Start: 04-28-2024 End: 04-28-2024 ambulatory SHERMAN LARSON Facility:[facility] Start: 04-26-2024 Telephone encounter Lavinia Campoverde RN Hematology/Oncology Start: 04-11-2024 Telephone encounter Юлия man EXHIBITS CURATOR.GANG HEAD SAW OPERATOR Work Phone: Gynecology Start: 03-29-2024 End: 03-29-2024 ambulatory SHERMAN LARSON Facility:[facility] Start: 03-25-2024 End: 03-25-2024 ambulatory SHERMAN LARSON Facility:[facility] Start: 03-25-2024 End: 03-25-2024 Subsequent hospital visit by physician Arrival Time Radiology Work Phone: Radiology Pet CT Comment on above: History of uterine c ancer [Z85.42] Start: 03-22-2024 End: 03-22-2024 Patient encounter procedure DO Sherman Larson Work Phone: [facility] Work Phone: Start: 03-22-2024 End: 03-22-2024 ambulatory DO Sherman Larson Work Phone: [facility] Work Phone: Start: 03-22-2024 End: 03-22-2024 ambulatory DO Sherman Larson Work Phone: [facility] Work Phone: Start: 03-22-2024 End: 03-22-2024 Patient encounter procedure DO Sherman Larson Work Phone: [facility] Work Phone: Start: 03-18-2024 End: 03-18-2024 Patient encounter procedure DO Sherman Larson Work Phone: [facility] [place] Work Phone: Start: 03-18-2024 End: 03-18-2024 ambulatory DO Sherman Larson Work Phone: [facility] Work Phone: Start: 03-15-2024 ambulatory Юлия davis EXHIBITS CURATOR.GANG HEAD SAW OPERATOR Work Phone: Gynecology Comment on above: responded Start: 03-15-2024 E-mail encounter fro m caregiver Юлия Odom EXHIBITS CURATOR.GANG HEAD SAW OPERATOR Work Phone: Gynecology Start: 03-11-2024 End: 03-11-2024 ambulatory DO Shermanleonor Larson Work Phone: [facility] Work Phone: Start: 03-11-2024 End: 03-11-2024 Patient encounter procedure DO Shermanleonor Larson Work Phone: [facility] Work Phone: Start: 03-10-2024 Non-patient / Non-visit DO Shermanleonor Larson Work Phone: [facility] Work Phone: Start: 03-10-2024 End: 03-10-2024 ambulatory SHERMAN P NEO Facility:[facility] Start: 03-08-2024 Telephone encounter Юлия man EXHIBITS CURATOR.GANG HEAD SAW OPERATOR Work Phone: [facility] Comment on above: Lung bx Start: 03-08-2024 Registered Recurring DO Shermanleonor Larson Work Phone: [facility] Work Phone: Start: 03-03-2024 End: 03-03-2024 ambulatory SHERMAN P NEO Facility:[facility] Start: 03-03-2024 Non-patient / Non-visit DO Shermanleonor Larson Work Phone: [facility] Work Phone: Start: 03-03-2024 End: 03-03-2024 Subsequent hospital visit by physician Arrival Time Radiology Work Phone: Radiology Pet CT Comment on above: Lung nodules [R91.8] Start: 02-23-2024 End: 02-23-2024 Patient encounter procedure DO Sherman Neo Work Phone: [facility] Work Phone: Start: 02-17-2024 End: 02-17-2024 ambulatory SHERMAN LARSON Facility:[facility] Start: 02-17-2024 End: 02-17-2024 Office outpatient visit 25 minutes Alley Augustin PA-C Work Phone: Gastroenterology Comment on above: Abnormal results of liver function studies (Primary Dx); Cystadenoma; Pancreatic cyst; Screening for colon cancer Start: 02-15-2024 Telephone encounter Юлия man APRN.GANG HEAD SAW OPERATOR Work Phone: Hematology/Oncology Comment on above: Orders Start: 02-11-2024 End: 02-11-2024 Patient encounter procedure DO Sherman Larson Work Phone: [facility] Work Phone: Start: 12-15-2023 End: 12-15-2023 Patient encounter procedure DO Sherman Larson Work Phone: [facility] Work Phone: Start: 11-04-2023 End: 11-04-2023 ambulatory ЮЛИЯ ODOM Facility:[facility] Start: 10-19-2023 End: 10-19-2023 ambulatory Sherman Larson Other [employer] Other Start: 10-19-2023 Office outpatient visit 25 minutes Sherman Larson [facility] [place] Start: 10-19-2023 End: 10-19-2023 Patient encounter procedure DO Sherman Larson Work Phone: [facility] [place] Work Phone: Start: 09-15-2023 End: 09-15-2023 ambulatory DO Sherman Larson Work Phone: [facility] Work Phone: Start: 09-15-2023 End: 09-15-2023 Departed Referred DO Sherman Larson Work Phone: [facility] Work Phone: Start: 09-09-2023 (DM) Diabetes Rosanne Dumont [facility] Start: 09-09-2023 Telephone encounter Rosanne Dumont [facility] Start: 09-09-2023 End: 09-09-2023 Discharged Recurring DO Sherman Larson Work Phone: [facility] Work Phone: Start: 09-09-2023 Registered Recurring DO Sherman Larson Work Phone: [facility] Work Phone: Start: 09-09-2023 End: 09-09-2023 ambulatory DO Sherman Larson Work Phone: [employer] [facility] Other Start: 09-09-2023 End: 09-09-2023 Patient encounter procedure DO Sherman Larson Work Phone: [facility] Work Phone: Start: 07-15-2023 End: 07-15-2023 Patient encounter procedure DO Sherman Larson Work Phone: [facility] Work Phone: Start: 07-15-2023 End: 07-15-2023 ambulatory DO Sherman Larson Work Phone: [facility] Work Phone: Start: 06-29-2023 End: 06-29-2023 ambulatory DO Sherman Larson Work Phone: [facility] Work Phone: Start: 06-29-2023 End: 06-29-2023 Discharged Recurring DO Sherman Larson Work Phone: [facility] [place] Work Phone: Start: 06-29-2023 Registered Recurring DO Shermanleonor Larson Work Phone: [facility] [place] Work Phone: Start: 05-26-2023 Registered Recurring DO Sherman Larson Work Phone: [facility] Work Phone: Start: 04-30-2023 End: 04-30-2023 ambulatory DO Sherman Neo Work Phone: [facility] Work Phone: Start: 04-30-2023 End: 04-30-2023 Discharged Recurring DO Sherman Larson Work Phone: [facility] [place] Work Phone: Start: 04-05-2023 End: 04-05-2023 ambulatory Sherman Larson Other [employer] Other Start: 04-05-2023 Encounter by ji r anastacia Larson [facility] [place] Start: 04-02-2023 End: 04-02-2023 ambulatory Tondra Tim Other [facility] [employer] Other Start: 04-02-2023 Telephone encounter Tona Tim [facility] Start: 03-31-2023 End: 03-31-2023 ambulatory DO Sherman Larson Work Phone: [facility] Work Phone: Start: 03-31-2023 End: 03-31-2023 Patient encounter procedure DO Sherman Larson Work Phone: [facility] [place] Work Phone: Start: 03-30-2023 Registered Recurring DO Sherman Larson Work Phone: [facility] [place] Work Phone: Start: 02-19-2023 ambulatory Ivory Rizo icfrancisco j [facility] Work Phone: [facility] HB[facility] Comment on above: antibiotic prescript ion Start: 02-19-2023 E-mail encounter fro m caregiver Ivory Stuart [facility] Work Phone: [facility] Start: 02-19-2023 End: 02-19-2023 Subsequent hospital visit by physician Lior Linton MD Work Phone: [facility] Endoscopy - ENDO Comment on above: Pancreatic cyst [K86 .2] Start: 02-10-2023 (DM) Diabetes Tondra Mapus [facility] Start: 02-10-2023 End: 02-10-2023 ambulatory Tondra Mapus Other [employer] [facility] Other Start: 02-10-2023 Registered Recurring DO Sherman Larson Work Phone: [facility] Work Phone: Start: 02-09-2023 ambulatory Lior Linton MD Work Phone: [facility] Endoscopy - ENDO Start: 02-04-2023 Telephone encounter Orville Rocha (Hand Sander) Issa nt Pre Anesthesia Comment on above: Received Outside [facility] Records (Lab Results) Start: 02-02-2023 End: 02-02-2023 Admission to establishment Pacc Main [facility] Start: 02-02-2023 End: 02-02-2023 ambulatory Pacc Virtual Pre Anesthesia Comment on above: Pre-op evaluation (P rimary Dx); Type 2 diabetes mellitus without complication, 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); Mixed hyperlipidemia; Endometrial [...] cancer Start: 11-04-2022 (DM) Diabetes Tondra Dumont [facility] Start: 11-04-2022 End: 11-04-2022 ambulatory Tondra Tejasus Other [employer] [facility] Other Start: 11-02-2022 End: 11-02-2022 ambulatory Heidi Sanchez Other [employer] [facility] Other Start: 11-02-2022 Encounter by ji Gordon Keolinette [facility] Start: 10-30-2022 Telephone encounter Lior page MD Work Phone: Gastroenterology Comment on above: Orders Start: 10-14-2022 End: 10-14-2022 ambulatory Tondra Mapus Other [employer] [facility] Other Start: 10-14-2022 Telephone encounter Tondra Dumont [facility] Start: 09-24-2022 End: 09-24-2022 ambulatory Sherman Larson Other [employer] Other Start: 09-24-2022 Office outpatient visit 15 minutes Sherman Larson [facility] [place] Start: 09-17-2022 End: 09-17-2022 Follow-up encounter Юлия Odom APRN.GANG HEAD SAW OPERATOR Work Phone: Gynecology Comment on above: Encounter for follow -up surveillance of endometrial cancer (Primary Dx); Pancreatic cyst; Lung nodules Start: 09-17-2022 End: 09-17-2022 Patient encounter procedure Юлия Odom APRN.GANG HEAD SAW OPERATOR Work Phone: [facility] Start: 08-13-2022 Telephone encounter Lavinia Godfrey RN R adiology Pet CT Comment on above: Orders Start: 07-21-2022 (DM) Diabetes Tondra Mapus [facility] Start: 07-21-2022 End: 07-21-2022 ambulatory Tondra Mapus Other [employer] [facility] Other Start: 06-11-2022 End: 06-11-2022 Patient encounter procedure DO Sherman Rothmanfaby Work Phone: [facility] Start: 04-09-2022 Registered Recurring DO Sherman Rothmanfaby Work Phone: [facility] Start: 04-09-2022 (DM) Diabetes Tondra Mapus [facility] Start: 04-09-2022 End: 04-09-2022 ambulatory Tondra Mapus Other [employer] [facility] Other Start: 03-25-2022 End: 03-25-2022 ambulatory Sherman Larson Other [employer] Other Start: 03-25-2022 Telephone encounter Sherman Larson [facility] [place] Start: 03-12-2022 End: 03-12-2022 ambulatory Tondra Mapus Other [employer] [facility] Other Start: 03-12-2022 Telephone encounter Tondra Mapus [facility] Start: 01-29-2022 End: 01-29-2022 ambulatory Tondra Mapus Other [employer] [facility] Other Start: 01-29-2022 Telephone encounter Tondra Mapus [facility] Start: 12-18-2021 (DM) Diabetes Tondra Mapus [facility] Start: 12-18-2021 End: 12-18-2021 ambulatory Tondra Mapus Other [employer] [facility] Other Start: 10-18-2021 End: 10-18-2021 ambulatory Sherman Larson Other [employer] [facility] Other Start: 10-18-2021 Telephone encounter Sherman Larson [facility] Start: 09-23-2021 End: 09-23-2021 ambulatory Sherman Larson Other [employer] [facility] Other Start: 09-23-2021 Office outpatient visit 25 minutes Shermanleonor Rothmanfaby [facility] Start: 09-10-2021 (DM) Diabetes Tona Tim [facility] Start: 09-10-2021 End: 09-10-2021 ambulatory Rosanne Dumont Other [employer] [facility] Other Start: 11-04-2018 Preoperative state Rosanne Dawkins s Other [employer] [facility] Other Procedures Date Procedure Procedure Detail Performing Clinician Start: 05-26-2024 Ct thorax w/contrast material Юлия Gargalianos EXHIBITS CURATOR.GANG HEAD SAW OPERATOR Work Phone: Start: 03-25-2024 Ct abdomen & pelvis w/contrast material Юлия Gargalianos EXHIBITS CURATOR.GANG HEAD SAW OPERATOR Work Phone: Start: 03-03-2024 Ct thorax w/contrast material Юлия Gargalianos EXHIBITS CURATOR.GANG HEAD SAW OPERATOR Work Phone: Start: 03-03-2024 Comprehensive metabo lic [...] for malignant neoplasm of colon [facility] Start: 11-23-2024 End: 11-23-2024 Follow-up encounter 11/23/2024 9:15 AM EST Visit (SP) Office Gynecology Oncology [address] [place] [address] Jules Navas MD [address] [place] [address] 1 YEAR FOLLOW UP Gynecology Oncology Comment on above: 1 YEAR FOLLOW UP Start: 11-16-2024 End: 11-16-2024 Patient encounter procedure 11/16/2024 7:45 AM EST Appointment Radiology Pet CT [address] [place] [address] CT CAP W IVCON per staff message before office visit Radiology Pet CT Comment on above: CT CAP W IVCON per staff message before office visit Start: 11-09-2024 End: 11-09-2024 Follow-up encounter Gynecology Comment on above: 1 YEAR FOLLOW UP Start: 06-12-2024 Covid-19 Vaccine ( season) Covid-19 Vaccine ( season) [facility] Start: 06-12-2024 Influenza vaccination Influenza Vaccine [facility] Start: 06-01-2024 End: 06-01-2024 ambulatory 06/01/2024 9:00 AM EDT Visit (SP) Office Gynecology Oncology [address] [place] [address] Jules Navas MD [address] [place] [address] SCANS Gynecology Oncology Comment on above: FU REVIEW CT SCANS Start: 05-26-2024 End: 05-26-2024 Patient encounter procedure 05/26/2024 9:15 AM EDT Appointment Radiology Pet [facility] [address] [place] [address] CT CHE[address] Radiology Pet CT Comment on above: CT CHEST Start: 04-28-2024 End: 04-28-2024 ambulatory 04/28/2024 9:15 AM EDT Results Only [facility] [address] [place] [address] [facility] Start: 04-26-2024 End: 07-26-2024 CREATININE BLD CREATININE BLD Lab Routine Endometrial ca (HCC) Expected: 04/26/2024, Expires: 07/26/2024 [facility] Work Phone: Comment on above: Expected: 04/26/2024, Expires: Start: 03-29-2024 End: 03-29-2024 Admission to same day surgery center 03/29/2024 9:30 AM EDT - 03/29/2024 10:30 AM EDT Surgery Angio [address] [place] [address] Ritesh Randall MD [address] [place] [address] CORE NEEDLE BIOPSY LUNG OR MEDIASTINUM PERC [...] EDT Hospital Encounter Angio [address] [place] [address] Ritesh Randall MD [address] [place] [address] History of uterine cancer [Z85.42] Angio Comment on above: History of uterine cancer [Z85.42] Start: 03-25-2024 End: 03-25-2024 Patient encounter procedure 03/25/2024 7:45 AM EDT Appointment Radiology Pet CT [address] [place] [address] CT AP W IVCON Radiology Pet CT Comment on above: CT AP W IVCON Start: 03-03-2024 End: 06-02-2024 CREATININE BLD CREATININE BLD Lab Routine Endometrial ca (HCC) Expected: 03/03/2024 (Approximate), Expires: 06/02/2024 [facility] Work Phone: Comment on above: Expected: 03/03/2024 (Approximate), Expi res: 06/02/2024 Start: 03-03-2024 End: 03-03-2024 Patient encounter procedure 03/03/2024 8:45 AM EDT Appointment Radiology Pet CT [address] [place] [address] Ct [address] Comment on above: Ct Chest Start: 02-17-2024 End: 05-18-2024 Comprehensive metabolic 2000 panel - Serum or Plasma COMPREHENSIVE METABOLIC PANEL Lab Routine Abnormal results of liver function studies Expected: 02/17/2024, Expires: 05/18/[address] [facility] Comment on above: Expected: 02/17/2024, Expires: Start: 02-17-2024 End: 05-18-2024 PT panel - Platelet poor plasma by Coagulation assay PROTHROMBIN TIME Lab Routine Abnormal results of liver function studies Expected: 02/17/2024, Expires: 05/18/[address] [facility] Comment on above: Expected: 02/17/2024, Expires: Start: 02-17-2024 End: 02-17-2024 Patient encounter procedure 02/17/2024 11:00 AM EDT Office Visit Gastroenterology [address] [place] [address] Alley Augustin PA-C [address] [place] [address] 1Yr F/U O/V Gastroenterology Comment on above: 1Yr F/U O/V Start: 11-15-2023 Covid-19 Vaccine () Covid-19 Vaccine () [facility] Start: 10-12-2023 Advance Directive Discussion Advance Directive Discussion [facility] Start: 10-12-2023 Behavioral Health Screening Behavioral Health Screening [facility] Start: 09-15-2023 Superficial Wound Culture Superficial Wound Culture [facility] Start: 10-12-2022 ADVANCE DIRECTIVE DISCUSSION ADVANCE DIRECTIVE DISCUSSION [facility] Start: 10-12-2022 DEPRESSION ASSESSMENT DEPRESSION ASSESSMENT [facility] Start: 09-11-2022 End: 11-11-2022 CREATININE BLD CREATININE BLD Lab Routine Malignant neoplasm of body of uterus, unspecified site (HCC) Expected: 09/11/2022, Expires: 11/11/2022 [facility] Work Phone: Comment on above: Expected: 09/11/2022, Expires: 3 Start: 06-12-2022 Influenza vaccination INFLUENZA (#1) [facility] Start: 10-12-2021 ADVANCE DIRECTIVE DISCUSSION ADVANCE DIRECTIVE DISCUSSION [facility] Start: 10-12-2021 DEPRESSION ASSESSMENT DEPRESSION ASSESSMENT [facility] Start: 09-02-2021 COVID-19 VACCINE (4 - Booster for Pfizer series) COVID-19 VACCINE (4 - Booster for Pfizer series) [facility] Start: 2018 BONE DENSITY BONE DENSITY [facility] Start: 2018 Screening for osteoporosis Bone Density Screening [facility] Start: 2013 RSV Vaccine (1 - 1-dose 60+ series) RSV Vaccine (1 - 1-dose 60+ series) [facility] Start: 2003 SHINGRIX VACCINE (1 of 2) SHINGRIX VACCINE (1 of 2) [facility] Start: 05-04-2002 Urine microalbumin profile [facility] Start: 1998 COLOGUARD (FIT-DNA) COLOGUARD (FIT-DNA) [facility] Start: 1998 Colonoscopy COLONOSCOPY [facility] Start: 1998 COLORECTAL CANCER SCREENING COLORECTAL CANCER SCREENING [facility] Start: [address] COLONOGRAPHY [facility] Start: 1998 FECAL OCCULT BLOOD FECAL OCCULT BLOOD [facility] Start: 1998 Screening for malignant neoplasm of colon [facility] Start: 1998 SIGMOIDOSCOPY SIGMOIDOSCOPY [facility] Start: 1993 Mammography MAMMOGRAM [facility] Start: 1993 Screening for malignant neoplasm of breast Mammogram Screening [facility] Start: 1971 ANNUAL PCP TEAM CHRONIC DISEASE VISIT ANNUAL PCP TEAM CHRONIC DISEASE VISIT [facility] Start: 1971 Anxiety Screening Anxiety Screening [facility] Start: 1971 Depression Screening Depression Screening [facility] Start: 1971 Hepatitis B surface antibody level LDL CHOLESTEROL [facility] Start: 1971 HEPATITIS C SCREENING HEPATITIS C SCREENING [facility] Start: 1971 Hepatitis C screening Hepatitis C Screening [facility] Start: 1963 3 comp foot exam completed DIABETIC FOOT EXAM [facility] Start: 1963 Diabetic foot examination Diabetic Foot Exam [facility] Start: 1963 Glaucoma screening Dilated Retinal Exam [facility] Start: 1963 Hepatitis B screening URINE ALBUMIN:CREATININE RATIO [facility] Start: 1963 Hepatitis C antibody, confirmatory test DILATED RETINAL EXAM [facility] Start: 1961 PNEUMOCOCCAL: 65+ (1 - PCV) PNEUMOCOCCAL: 65+ (1 - PCV) [facility] Start: 1960 Hemoglobin A1c measurement HbA1C [facility] Start: 1960 Hemoglobin A1c/Hemoglobin.total in Blood HBA1C [facility] Bacteria identified in Unspecified specimen by Aerobe culture [facility] COLOGUARD COLOGUARD Lab Ro utine Screening for colon cancer Ordered: 02/17/2024 [facility] Work Phone: Comment on above: Ordered: 02/17/2024 Comprehensive metabolic 2000 panel - Serum or Plasma [facility] End: 07-01-2025 CT Abdomen and Pelvis W contrast IV CT ABD/PEL W IVCON Radiology Routine Encounter for follow-up surveillance of endometrial cancer Pulmonary nodule Adenopathy 1 Occurrences starting 06/01/2024 until 07/01/2025 [facility] Work Phone: Comment on above: 1 Occurrences starting 06/01/2024 until 07/01/2025 End: 05-11-2025 CT Chest W contrast IV CT CHEST W IVCON Radiology Routine Lung nodules 1 Occurrences starting 04/11/2024 until 05/11/2025 [facility] Work Phone: Comment on above: 1 Occurrences starting 04/11/2024 until 05/11/2025 End: 07-01-2025 CT Chest W contrast IV CT CHEST W IVCON Radiology Routine Encounter for follow-up surveillance of endometrial cancer Pulmonary nodule Adenopathy 1 Occurrences starting 06/01/2024 until 07/01/[address] [facility] Comment on above: 1 Occurrences starting 06/01/2024 until 07/01/2025 CYTOLOGY NON-INTEGRATION SOFTWARE ENGINEER CYTOLOGY NON-GY N Lab Routine Pancreatic cyst Release Upon Ordering for 1 Occurrences starting 02/19/2023 [facility] Work Phone: Comment on above: Release Upon Ordering for 1 Occurrences starting 02/19/2023 End: 01-08-2024 EGD - THERAPEUTIC, EUS, OR TUBE INTERVENTIONS EGD - THERAPEUTIC, EUS, OR TUBE INTERVENTIONS Endoscopy Routine Pancreatic cyst 1 Occurrences starting 01/07/2023 until 01/08/2024 [facility] Work Phone: Comment on above: 1 Occurrences starting 01/07/2023 until 01/08/2024 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 Comment on above: 1 Occurrences starting 02/17/2024 until 03/18/2025 End: 03-18-2025 MR Unspecified body region 3D post processing MRI 3D POST PROCESSING Radiology Routine Cystadenoma Pancreatic cyst 1 Occurrences starting 02/17/2024 until 03/18/[address] [facility] Comment on above: 1 Occurrences starting 02/17/2024 until 03/18/2025 Patient Education [facility] Work Phone: [facility] Immunizations Immunization Date Immunization Notes Care Provider Fa cility 07-15-2023 COVID-19 (PFIZER) 12Y and older DO Sherman Larson Work Phone: [facility] 07-15-2023 Fluzone QIV High-Dos e 65YR+ DO Sherman Larson Work Phone: [facility] 07-15-2023 Pneumococcal Conjuga te Vaccine, 20 valent DO Sherman Larson Work Phone: [facility] 07-15-2023 influenza virus vaccine, unspecified formulation Юлия Odom EXHIBITS CURATOR.GANG HEAD SAW OPERATOR Work Phone: [facility] 07-07-2022 COVID-19 mRNA Bivale nt Booster (Pfizer) DO Sherman Larson Work Phone: [facility] 07-07-2022 Influenza vaccine, quadrivalent, adjuvanted DO Sherman Larson Work Phone: [facility] 02-18-2022 COVID-19 original vaccine, age 12+ yr, monovalent (PFIZER-BIONTECH - JARAMILLO TOP) Ivory Stuart [facility] Work Phone: [facility] 02-18-2022 COVID-19 Vaccine Pfi zer - Documentation Purposes Only Sherman Larson Other [facility] 07-08-2021 COVID-19 Pfizer Sherman Larson Other [facility] 07-08-2021 Fluzone QIV High-Dos e 65YR+ DO Sherman Larson Work Phone: [facility] 07-08-2021 influenza, seasonal, injectable Sherman Larson Other [facility] 01-03-2021 COVID-19 Pfizer Sherman Larson Other [facility] 12-13-2020 COVID-19 Pfizer Sherman Larson Other [facility] 09-21-2020 zoster vaccine recombinant Sherman Larson Other [facility] 06-26-2020 Fluzone QIV High-Dos e 65YR+ DO Sherman Larson Work Phone: [facility] 06-26-2020 zoster vaccine recombinant Sherman Larson Other [facility] 06-20-2019 influenza, high dose seasonal, preservative-free DO Sherman Larson Work Phone: [facility] 06-20-2019 influenza, seasonal, injectable Tondra Mapus Other [facility] 07-05-2018 influenza, injectabl e, quadrivalent, preservative free Lavinia Godfrey RN [facility] 06-01-2017 influenza, injectabl e, quadrivalent, preservative free Lavinia Godfrey RN [facility] 08-10-2009 novel [id number], preservative-free, injectable Lavinia Godfrey RN [facility] 05-03-2002 TD(adult) unspecifie d formulation Lavinia Godfrey RN [facility] Payers Date Payer Category Payer Medicare MEDICARE MEDICAR E A AND B [id number] 2018-Present [phone] [place] [address] Medicare [id number] 2018 Unknown [id number] 2018 Unknown [id number] 2018 Medicare [id number] 2018 Self-pay [id number] 2018 Unknown [id number] Unknown [id number] Unknown [id number] Unknown [id number] Unknown [id number] Unknown [id number] Unknown [id number] Unknown [id number] Unknown [id number] Social History Date Type Detail Facility Unknown if ever smoked [employer] [facility] Other Start: 02-02-2023 End: 11-04-2023 Sex Assigned At [facility] Start: 07-30-2021 End: 06-21-2024 Tobacco smoking status NHIS Never smoked tobacco (finding) [facility] Start: 1955 Sex Assigned At Female [facility] Start: 02-12-2018 End: 09-17-2022 Tobacco use and exposure Smokeless tobacco non-user [facility] Start: 04-03-2021 End: 02-17-2024 Alcohol intake Current non-drinker of alcohol (finding) [facility] Start: 09-01-2022 End: 09-11-2022 Exposure to SARS-CoV-2 (event) Not sure [facility] Start: 02-02-2023 End: 11-04-2023 History of Social function [facility] Adult Depression Screening Assessment [address] [facility] Start: 09-05-2020 Gender identity Identifies as female gender (finding) [facility] Start: 09-05-2020 Sexual orientation Heterosexual (finding) [facility] Medical Equipment Procedure Code Equipment [...] present, cervix not involved [facility] screening negative ER/IN: negative 2. Chemotherapy with Carboplatin and taxol [...] cancer +LVI, MMR nl Limited staging 12/2015 ([facility]) HDRB c 04/2016 Chemo x [...] Low documented in this encounter [facility] 06-01-2024 Note HNO ID: [id number] Author: JULES NAVAS MD Service: ? Author [...] present, cervix not involved [facility] screening negative ER/IN: negative 2. 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 [facility] 05-30-2024 Evaluation note Authored May 30, 2024 8: 55am The above note written by Ozzie TEIXEIRA acting as human recorder, note dictated by Dr. Sherman Larson. [facility] Work Phone: 1(570) 498-751108-15-2024 History of Present illness Narrative* Mamie Mckenzie [...] Final Comment: Account Credited DUPLICATE ORDER MW [id number] P.O.C.T. RESULTS: POC done: Yes, See [...] PATIENT PRESENTS WITH AN IMPLANTABLE OR ATTACHED PRINT COLOR MATCHER: No RADIOLOGY DEPARTMENT: CT; Exam(s) Completed: Chest PERIPHERAL IV DATA: Site assessment: Clean,Dry and Intact, Site disposition Discontinued SIGNED BY: RT Eugenia(Moy) May 26, 2024 9:35 AM documented in this encounter[facility]24 NoteHNO ID: [id number] Author: JUWAN MCKINNEY RT(Moy) Service: ? Author [...] PATIENT PRESENTS WITH AN IMPLANTABLE OR ATTACHED PRINT COLOR MATCHER: No RADIOLOGY DEPARTMENT: CT; Exam(s) Completed: Chest PERIPHERAL IV DATA: Site assessment: Clean,Dry and Intact, Site disposition Discontinued SIGNED BY: RT Eugenia(Moy) May 26, 2024 9:35 [facility]08-15-2024 NoteHNO ID: [id number] Author: MAMIE MCKENZIE RN Service: ? Author [...] Final Comment: Account Credited DUPLICATE ORDER MW [id number] P.O.C.T. RESULTS: POC done: Yes, See Lab Tab May 26, 2024 TREATMENT: N/A IV SITE: Ambulatory: A peripheral IV was started in the Left antecubital site with a Angio cath: 22 gauge. IV SITE APPEARANCE: Clean,Dry and Intact SIGNATURE: Mamie Mckenzie RN PATIENT NAME: Magy Castro DATE: May 26, 2024 TIME: 9:09 [facility]07-16-2024 Telephone encounter Note* Telephone Encounter - Lavinia Campoverde RN - 04/26/2024 12:11 PM EDT Pt is scheduled for a scan on 05/26. An updated cre is needed prior to scan. Pended order needs signed thanks! Lavinia Campoverde RN [facility]07-16-2024 Miscellaneous Notes* Telephone Encounter - Lavinia Campoverde RN - 04/26/2024 12:11 PM EDT Pt is scheduled for a scan on 05/26. An updated cre is needed prior to scan. Pended order needs signed thanks! Lavinia Campoverde RN documented [facility] Telephone encounter Note * Telephone Encounter - [...] scans and follow ups be completed at [facility]. Patient comfortable w above plan. [facility]07-01-2024 Miscellaneous Notes* Telephone Encounter - Юлия Odom [...] scans and follow ups be completed at [facility]. Patient comfortable w above plan. documented in this encounterMer[facility]06[facility]2024 NoteHNO ID: [id number] Author: JOSE DE JESUS YUAN RT(R) Service: [...] PATIENT PRESENTS WITH AN IMPLANTABLE OR ATTACHED PRINT COLOR MATCHER: n/a RADIOLOGY DEPARTMENT: Biopsy PERIPHERAL IV DATA: Not applicable SIGNED BY: RT Jose A(R) March 29, 2024 9:37 [facility]06-14-2024 History of Present illness Narrative* Lavinia [...] Final Comment: Account Credited DUPLICATE ORDER MW [id number] P.O.C.T. RESULTS: POC done: Yes, See [...] PATIENT PRESENTS WITH AN IMPLANTABLE OR ATTACHED PRINT COLOR MATCHER: No RADIOLOGY DEPARTMENT: CT; Exam(s) Completed: Abdomen/Pelvis PERIPHERAL IV DATA: Site assessment: Clean,Dry and Intact, Site disposition Discontinued SIGNED BY: MARIALUISA Bello) March 25, 2024 8:33 AM documented in this encounterMer[facility]24 NoteHNO ID: [id number] Author: JUWAN MCKINNEY RT (R) Service: ? [...] PATIENT PRESENTS WITH AN IMPLANTABLE OR ATTACHED PRINT COLOR MATCHER: No RADIOLOGY DEPARTMENT: CT; Exam(s) Completed: Abdomen/Pelvis PERIPHERAL IV DATA: Site assessment: Clean,Dry and Intact, Site disposition Discontinued SIGNED BY: RT Eugenia(Moy) March 25, 2024 8:33 [facility]06-14-2024 NoteHNO ID: [id number] Author: LAVINIA CAMPOVERDE RN Service: ? Author [...] Final Comment: Account Credited DUPLICATE ORDER MW [id number] P.O.C.T. RESULTS: POC done: Yes, See Lab Tab 2023 TREATMENT: No Hydration needed. IV SITE: Ambulatory: A peripheral IV was started in the Left antecubital site with a Angio cath: 20 gauge. IV SITE APPEARANCE: Clean,Dry and Intact SIGNATURE: Lavinia Campoverde RN PATIENT NAME: Magy Castro DATE: March 25, 2024 TIME: 7:49 [facility]06-05-2024 Telephone encounter Note* Telephone Encounter - Cortney Coronel - 03/16/2024 5:19 PM EDT Spoke to pt and scheduled biopsy for 03/29/24. [facility]06-05-2024 Miscellaneous Notes* Telephone Encounter - Cortney Coronel [...] lung biopsy 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-high risk. Reference from [facility] Administrator: https://[facility].policyN-Trig.com/dotNet/documents/?hksqo=70315 STAFF SIGNATURE: Beltran Romano MD DATE: March [...] THERAPY: none on file NURSE SIGNATURE: Betzy eHrnandez LPN DATE: March 08, 2024 TIME: 8:44 AM * Telephone Encounter - Jamia White - 03/08/2024 8:17 AM EDTSummary: Lung BX RADIOLOGY CALL CENTER INTAKE DATE: 03/08/2024 TIME: 8:17am REQUESTING STAFF: Юлия Odom APRN.[employer] PHONE/PAGER: : [phone] SPECIFICS OF THE REQUEST:Lung BX SPECIAL REQUESTS: TISSUE SAMPLE, LABWORK: N/A IS THIS REQUEST PART OF A RESEARCH PROTOCOL: No MEDICAL DIAGNOSIS: Lung nodules [R91.8] TYPE AND DATE OF THE EXAM THAT IS THE BASIS OF THE REQUEST: CT Date: 03/03/2024 IMAGING: [facility] Note to all persons requesting biopsies: All biopsy requests will be scheduled as quickly as possible, based on the clinical urgency, availability of appointment times, the need to hold anti-thrombolytic therapy (aspirin, blood thinners) and the patient s schedule, including the need for an available parts delivery driver. If a percutaneous biopsy or drainage is not felt to be safe or an alternative method for establishing a diagnosis is possible, this will be discussed directly with the requesting physician. documented in this encounterMer[facility] Telephone encounter Note * Telephone Encounter - [...] lung biopsy 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-high risk. Reference from [facility]: https://ccf.policyN-Trig.com/dotNet/documents/?xaktt=81392 STAFF SIGNATURE: Beltran Romano MD DATE: March 09, 2024 TIME: 3:[address] [facility]05-28-2024 Telephone encounter Note* Telephone Encounter - Betzy [...] 08, 2024 TIME: 8:[address] [facility]05-28-2024 Telephone encounter Note* Telephone Encounter - Jamia White - 03/08/2024 8:17 AM EDTSummary: Lung BX RADIOLOGY CALL CENTER INTAKE DATE: 03/08/2024 TIME: 8:17am REQUESTING STAFF: Юлия Odom APRN.[facility] [employer] PHONE/PAGER: : [phone] SPECIFICS OF THE REQUEST:Lung BX SPECIAL REQUESTS: TISSUE SAMPLE, LABWORK: N/A IS THIS REQUEST PART OF A RESEARCH PROTOCOL: No MEDICAL DIAGNOSIS: Lung nodules [R91.8] TYPE AND DATE OF THE EXAM THAT IS THE BASIS OF THE REQUEST: CT Date: 03/03/2024 IMAGING: [facility] Note to all persons requesting biopsies: All biopsy requests will be scheduled as quickly as possible, based on the clinical urgency, availability of appointment times, the need to hold anti-thrombolytic therapy (aspirin, blood thinners) and the patient s schedule, including the need for an available parts delivery driver. If a percutaneous biopsy or drainage is not felt to be safe or an alternative method for establishing a diagnosis is possible, this will be discussed directly with the requesting physician. [facility]05-23-2024 History of Present illness Narrative* Mamie Mckenzie [...] mg/dL Final Comment: Account Credited DUPLICATE ORDER [id number] 09/13/2021 0.70 0.58 - 0.96 mg/dL [...] Final Comment: Account Credited DUPLICATE ORDER MW [id number] P.O.C.T. RESULTS: POC done: Yes, See [...] PATIENT PRESENTS WITH AN IMPLANTABLE OR ATTACHED PRINT COLOR MATCHER: No RADIOLOGY DEPARTMENT: CT; Exam(s) Completed: Chest PERIPHERAL IV DATA: Site assessment: Clean,Dry and Intact, Site disposition Discontinued SIGNED BY: RT Eugenia(R) March 03, 2024 10:18 AM documented in this encounterMer[facility]05[facility]24 Miscellaneous Notes* Result Encounter Note - Alley Augustin PA-C - 03/03/2024 8:45 AM EDT Hi Debbie, Your labs are normal. Thank you, Alley Augustin PA-C documented in this encounterMer[facility]05-23-2024 NoteHNO ID: [id number] Author: JUWAN MCKINNEY RT(R) Service: ? Author [...] PATIENT PRESENTS WITH AN IMPLANTABLE OR ATTACHED PRINT COLOR MATCHER: No RADIOLOGY DEPARTMENT: CT; Exam(s) Completed: Chest PERIPHERAL IV DATA: Site assessment: Clean,Dry and Intact, Site disposition Discontinued SIGNED BY: Juwan Mckinney, RT(R) March 03, 2024 10:18 [facility]05-23-2024 NoteHNO ID: [id number] Author: MAMIE MCKENZIE RN Service: ? Author [...] Final Comment: Account Credited DUPLICATE ORDER MW [id number] 09/13/2021 0.70 0.58 - 0.96 mg/dL [...] Final Comment: Account Credited DUPLICATE ORDER MW [id number] P.O.C.T. RESULTS: POC done: Yes, See Lab Tab March 03, 2024 TREATMENT: N/A IV SITE: Ambulatory: A peripheral IV was started in the Left antecubital site with a Angio cath: 20 gauge. IV SITE APPEARANCE: Clean,Dry and Intact SIGNATURE: Mamie Mckenzie RN PATIENT NAME: Magy Castro DATE: March 03, 2024 TIME: 8:49 [facility]05-23-2024 Progress note* Result Encounter Note - Alley Augustin PA-C - 03/03/2024 8:45 AM EDT Hi Debbie, Your labs are normal. Thank you, Alley Augustin PA-C [facility] Work Phone: [phone]) [phone] Instructions* Patient Instructions* Alley Augustin PA-C - [...] do not hesitate to send me a [employer] message or call. Alley Augustin PA-C documented in this encounterMer[facility]05[facility] History of Present illness Narrative* Alley Augustin [...] Augustin PA-C documented in this encounterMer[facility]05-08-2024 NoteHNO ID: [id number] Author: ALLEY AUGUSTIN PA-C Service: ? Author Type: Physician Precision Agronomist Type: Progress Notes Filed: 02/17/2024 12:06 Note [...] designated per enteric con (more content not included)...[facility]05-06-2024 Telephone encounter Note* Telephone Encounter - Mamie Mckenzie RN - 02/15/2024 1:23 PM EDT Please sign pended Cre for upcoming CT Thank You! Mamie Mckenzie RN [facility]05-06-2024 Miscellaneous Notes* Telephone Encounter - Mamie Mckenzie RN - 02/15/2024 1:23 PM EDT Please sign pended Cre for upcoming CT Thank You! Mamie Mckenzie RN documented in this encounterMer[facility]01-24-2024 NoteHNO ID: [id number] Author: ЮЛИЯ ODOM APRN.GANG HEAD SAW OPERATOR Service: ? Author Type: Nurse Practitioner Type: [...] present, cervix not involved HNPCC screening negative ER/IN: negative 2. Chemotherapy with Carboplatin and taxol [...] cancer, +LVI, MMR nl Limited staging 12/2015 ([facility]) HDRB c 04/2016 Chemo x 5 c 06/2016 Pancreatic cyst work up with EUS, cytology 02/2023 negative. Followed by GI . PLAN: - doing well, exam normal - previous CT chest 09/2022 with lung nodules-will repeat now. - health maintenance up to date-mammogram completed at [facility] jul 2023-negative - continue fol (more content not included)...[facility] [id number] Evaluation note* Encounter Date Diagnosis Assessment Notes Treatment Notes Treatment Clinical Notes Oct, Pancreatic cyst (ICD-10 - K86.2) Pancreatic cyst adenoma has been followed by [facility] with benign pathology results. Oct, History of uterine cancer (ICD-10 - Z85.42) The patient follows with [facility] acoustical installer Юлия Odom. Oct, Venous insufficiency (ICD-10 - I87.2) The patient encouraged continuing plan of care as instructed by the [facility].The patient [...] Blood work ordered today to evaluate coagulopathies. [employer] [facility] Other 11-29-2023 Evaluation note* Encounter Date Diagnosis Assessment Notes Treatment Notes Treatment Clinical Notes Aug, Type 2 diabetes mellitus (ICD-10 - E11.9) Managing type 2 diabetes material was published 1. Uncontrolled, Type 2 diabetes A1C 8.3% 2. Blood glucose levels above target. According to [employer] 2 cgm download 08/27/2023- 023 Avg glucose [...] High blood pressure material was published Aug, [facility]PC current use of insulin (ICD-10 - Z79.4) Aug, B12 deficiency (ICD-10 - E53.8) Good food sources of vitamin B12 material was published 03/2023 Vit b12 221 Aug, BMI 45.0-49.9, adult (ICD-10 - Z68.42) Setting weight-loss goals material was published 6 pound weight loss from last visit, continue with weight loss efforts Aug, Skin abnormalities (ICD-10 - L98.9) Referral to dermatology [facility] [employer] Other 11-29-2023 Evaluation note* Encounter Date Diagnosis Assessment Notes Treatment Notes Treatment Clinical Notes Aug, Skin abnormalities (ICD-10 - L98.9) [facility] [employer] Other 09-18-2023 Progress note Author Hien Poole [facility] June 29, 2023 9:41am Note Date/Time June 29, 2023 9:36am [facility] [address] [place] [address] Wound Center Provider Note Signed Patient: Magy Castro MR#: [id number] : 1955 Acct:[id number] Age/Sex: 67 / F Copies to: DO Hien Taylor, EXHIBITS CURATOR~ HPI Date of Visit Date of Visit: Date of Service: 06/29/2023 Time of Service: 09:35 Narrative HPI: 06/29/23 Debbie is a 67 year old female presenting to [facility] wound care for a follow up visit for eval and treatment of RLE ulcer that appear d/t venous and lymphedema etiologies. She has been a patient here in the past. Urgo k2 wrap will be used along with topical steroid and she will present here for dressings.We spoke about vascular and she did has been having her venous procedures in [place]. Weight loss and elevation and compression and [...] start?: Early May 2023 Mode of Arrival/ Rolling Attendant: Personal vehicle Lives with:: Spouse Appetite Description: Within Normal Limits Who helps w/ dressing change?: Wound Care Dept Why Do You Need Help?: Can't Reach Ulcer Smoking Status: Never smoker [facility] Medical History (Updated 06/29/23 @ 09:36 by [...] By: <Electronically signed by WALTER Poole> 06/29/2341 [facility] Work Phone: 1(606) 471-859709-11-2023 Progress note Author Hien Poole [facility] June 22, 2023 1:48pm Note Date/Time June 22, 2023 1:48pm [facility] [address] [place] [address] Wound Center Provider Note Signed Patient: Magy Castro MR#: [id number] : 1955 Acct:[id number] Age/Sex: 67 / F Copies to: Sherman Larson,DO Hien Poole APRN~ HPI Date of Visit Date of Visit: Date of Service: 06/22/2023 Time of Service: 13:44 Subjective Pain Right Lower Leg: Pain Intensity: 0 Wound/Ulcer History When did wound start?: Early May 2023 Mode of Arrival/ Rolling Attendant: Personal vehicle Lives with:: Spouse Appetite Description: Within Normal Limits Who helps w/ dressing change?: Wound Care Dept Why Do You Need Help?: Can't Reach Ulcer Smoking Status: Never smoker [facility] Medical History (Updated 06/22/23 @ 13:46 by [...] Appearance: Beefy Red, Epithelial Tissue or Bridge, [place] and Yellow Surrounding Tissue Appearance: Bright Red [...] [facility] Work Phone: 1(717) 629-229807-10-2023 Progress note Author Hien Poole [facility] April 20, 2023 9:12am Note Date/Time April 20, 2023 9:[address] [facility] [address] [place] [address] Wound Center Provider Note Signed Patient: Magy Castro MR#: [id number] : 1955 Acct:[id number] Age/Sex: 67 / F Copies to: Sherman Larson,DO Hien Poole APRN~ HPI Date of Visit Date of Visit: Date of Service: 04/20/2023 Time of Service: 09:10 Narrative HPI: 03/25/23 Debbie is a 67 year old female presenting to [facility] wound care for an initial visit [...] interested in seeing the vascular group in [place] but she wants to wait at this [...] topically to the right leg, will do [facility] vein referral today, continues to take the horse chestnut and probiotics Subjective Pain Left Lower Leg: Pain Intensity: 0 Right Lower Leg: Pain Intensity: 0 Wound/Ulcer History When did wound start?: July 2022 Mode of Arrival/ Rolling Attendant: Personal vehicle Lives with:: Spouse Appetite Description: Within Normal Limits Who helps w/ dressing change?: Wound Care Dept Why Do You Need Help?: Can't Reach Ulcer and Limited mobility Smoking Status: Never smoker [facility] Medical History (Updated 04/20/23 @ 09:10 by [...] (and venous) Thickness: Skin Breakdown Bed Appearance: [place] Percent of Wound Bed Granulated/Red: 100 Percent of Devitalized: 0 Length (cm): 35.0 Width (cm): 40.0 Depth (cm): 0.1 CM Sq: 1400.000 Surrounding Tissue Appearance: Peeling and Dryness Surrounding Tissue Temp: Warm Drainage Amount: None Drainage Description: Serosanguineous Drainage Odor: No Odor Left Lower Leg: Type: Lymphedema (and venous) Thickness: Skin Breakdown Bed Appearance: [place] Percent of Wound Bed Granulated/Red: 100 Percent [...] By: <Electronically signed by WALTER Poole> 04/20/23911 [facility] Work Phone: 1(163) 440-992106-29-2023 Progress note Author Hien Poole [facility] April 09, 2023 10:05am Note Date/Time April 09, 2023 10:[address] [facility] [address] [place] [address] Wound Center Provider Note Signed Patient: Magy Castro MR#: [id number] : 1955 Acct:[id number] Age/Sex: 67 / F Copies to: Sherman Larson,DO Hien Poole APRN~ HPI Date of Visit Date of Visit: Date of Service: 04/09/2023 Time of Service: 10:00 Narrative HPI: 03/25/23 Debbie is a 67 year old female presenting to [facility] wound care for an initial visit [...] interested in seeing the vascular group in [place] but she wants to wait at this [...] wound start?: July 2022 Mode of Arrival/ Rolling Attendant: Personal vehicle Lives with:: Spouse Appetite Description: Within Normal Limits Who helps w/ dressing change?: Wound Care Dept Why Do You Need Help?: Can't Reach Ulcer and Limited mobility Smoking Status: Never smoker [facility] Medical History (Updated 04/09/23 @ 10:04 by [...] (and venous) Thickness: Skin Breakdown Bed Appearance: [place] Percent of Wound Bed Granulated/Red: 100 Percent of Devitalized: 0 Length (cm): 35.0 Width (cm): 40.0 Depth (cm): 0.1 CM Sq: 1400.000 Surrounding Tissue Appearance: Dryness Surrounding Tissue Temp: Warm Drainage Amount: Small Drainage Description: Serosanguineous Drainage Odor: No Odor Left Lower Leg: Type: Lymphedema (and venous) Thickness: Skin Breakdown Bed Appearance: Beefy Red, [place] and Yellow Percent of Wound Bed Granulated/Red: [...] [facility] Work Phone: 1(288) 167-670306-22-2023 Progress note Author Hien Poole [facility] April 02, 2023 9:18am Note Date/Time April 02, 2023 9:[address] [facility] [address] [place] [address] Wound Center Provider Note Signed Patient: Magy Castro MR#: [id number] : 1955 Acct:[id number] Age/Sex: 67 / F Copies to: Sherman Larson,DO Hien Poole APRN~ HPI Date of Visit Date of Visit: Date of Service: 04/02/2023 Time of Service: 09:16 Narrative HPI: 03/25/23 Debbie is a 67 year old female presenting to [facility] wound care for an initial visit [...] interested in seeing the vascular group in [place] but she wants to wait at this [...] wound start?: July 2022 Mode of Arrival/ Rolling Attendant: Personal vehicle Lives with:: Spouse Appetite Description: Within Normal Limits Who helps w/ dressing change?: Wound Care Dept Why Do You Need Help?: Can't Reach Ulcer and Limited mobility Smoking Status: Never smoker [facility] Medical History (Updated 04/02/23 @ 09:18 by [...] Appearance: Beefy Red, Epithelial Tissue or Bridge, [place] and Yellow Percent of Wound Bed Granulated/Red: 90 Percent of Devitalized: 10 Length (cm): 35.0 Width (cm): 40.0 Depth (cm): 0.1 CM Sq: 1400.000 Surrounding Tissue Appearance: Hyperpigmented Surrounding Tissue Temp: Warm Drainage Amount: Moderate Drainage Description: Serosanguineous Drainage Odor: No Odor Left Lower Leg: Type: Lymphedema (and venous) Thickness: Skin Breakdown Bed Appearance: Beefy Red, Epithelial Tissue or Bridge, [place] and Yellow Percent of Wound Bed Granulated/Red: [...] [facility] Work Phone: 1(906) 910-293906-14-2023 Progress note Author Hien Poole [facility] March 25, 2023 3:02pm Note Date/Time March 25, 2023 2:[address] [facility] [address] [place] [address] Wound Center Provider Note Signed Patient: Magy Castro MR#: [id number] : 1955 Acct:[id number] Age/Sex: 67 / F Copies to: Sherman Larson,DO Hien Poole APRN~ HPI Date of Visit Date of Visit: Date of Service: 03/25/2023 Time of Service: 14:52 Narrative HPI: 03/25/23 Debbie is a 67 year old female presenting to [facility] wound care for an initial visit [...] interested in seeing the vascular group in [place] but she wants to wait at this [...] wound start?: July 2022 Mode of Arrival/ Rolling Attendant: Personal vehicle Lives with:: Spouse Appetite Description: Within Normal Limits Who helps w/ dressing change?: Wound Care Dept Why Do You Need Help?: Can't Reach Ulcer and Limited mobility Smoking Status: Never smoker [facility] Medical History (Updated 03/25/23 @ 14:54 by [...] Appearance: Beefy Red, Epithelial Tissue or Bridge, [place] and Yellow Percent of Wound Bed Granulated/Red: 90 Percent of Devitalized: 10 Length (cm): 35.0 Width (cm): 40.0 Depth (cm): 0.1 CM Sq: 1400.000 Surrounding Tissue Appearance: Hyperpigmented Surrounding Tissue Temp: Warm Drainage Amount: Moderate Drainage Description: Serosanguineous Drainage Odor: No Odor Left Lower Leg: Type: Lymphedema (and venous) Thickness: Skin Breakdown Bed Appearance: Beefy Red, Epithelial Tissue or Bridge, [place] and Yellow Percent of Wound Bed Granulated/Red: [...] <Electronically signed by WALTER Poole> 03/25/23 1502 [facility] Work Phone: 1(397) 171-860005-11-2023 Nurse Note* Lakhwinder Payan RN - 02/19/2023 [...] (RECOMMENDATION): None documented in this encounterMercy Health St. [facility]-11-2023 History and physical note * [...] 2:04 PM Source Note - Christophe Shaffer APRN.GANG HEAD SAW OPERATOR - 02/02/2023 8:00 AM EDT Images from the original note were not included. PREANESTHESIA CONSULT CLINIC TELEHEALTH VISIT Patient has been identified by name and date of : Yes This is a virtual visit using [employer] video visit. It require patient-provider interaction for [...] fevers. Neuro: No history of TIA's, stroke, NIGHT TIME NANNY tumor, impaired sensorium, hemiplegia, paraplegia or quadraplegia. No neurological symptoms or problems. Respiratory: No history of current cough or dyspnea, or pneumonia in the past 6 weeks. No history of respiratory/pulmonary symptoms or problems. Cardiovascular: Positive for: DVT/PE, HLD, Negative for Recent CT, Angina, Arrhythmia, CAD, Chest Pain, CHF, HTN, PVD, Valvular Heart Disease GI: SEE HPI Negative for GERD, Nausea, Vomiting, Abdominal pain, Hepatitis, Liver disease, Pancreatitis, Colon cancer, Rectal cancer : No history of dysuria, frequency or incontinence,, stones or chronic kidney disease INTEGRATION SOFTWARE ENGINEER: Negative for abnormal vaginal bleeding, abnormal vaginal [...] ([place]) Follow by endo Dr. Lay Mapus [facility] Patient reports last A1C was 7.4, to [...] device. I spent more than 21-40 minutes [id number] with the patient and over half the time was devoted tocounseling and/or coordination of care. This is a virtual visit. It required patient-provider interaction for the medical decision making as documented above. SIGNATURE: Christophe Shaffer APRN.CNP PATIENT NAME: Magy Castro DATE: February 02, 2023 TIME: 8:45 AM PAGER/CONTACT #: documented in this encounterMercy Health St. [facility]05-02-2023 Evaluation note* Encounter Date Diagnosis Assessment Notes Treatment Notes Treatment Clinical Notes February, Type 2 diabetes mellitus (ICD-10 - E11.9) Managing type 2 diabetes material was published 1. Uncontrolled, Type 2 diabetes A1C 7.3% 2. Blood glucose levels improved. According to [employer] 2 cgm download 01/28/2023-02/10/2023 Avg glucose 160. [...] hyperglycemia, or diabetes medication issues. 6. Prescriptions: [employer] MAIL ORDER/CARLOS PIZANO: None at this time. [...] High blood pressure material was published February, long term care social worker current use of insulin (ICD-10 - Z79.4) February, B12 deficiency (ICD-10 - E53.8) Good food sources of vitamin B12 material was published 03/2022 Vit b12 >1400 February, BMI 45.0-49.9, adult (ICD-10 - Z68.42) Setting weight-loss goals material was published [employer] Other [id number] Miscellaneous Notes* Telephone Encounter - Orville Lazcano LPN - 02/04/2023 11:44 AM EDTSummary: External Lab Results Scanned into patients chart documented in this encounterMercy Health St. [facility]04-25-2023 Miscellaneous Notes* Telephone Encounter - Heidi Mcdonald RN - 02/03/2023 1:19 PM EDT Attempted to call pt, no answer. Left detailed voice msg regarding msg below. Instructed to call back with any questions. Heidi Mcdonald RN * Telephone Encounter - Lior Linton MD - 02/03/2023 7:22 AM EDT MRCP images were reviewed. The images were downloaded to [facility] and the MRI was done at [facility]. Agree with the findings of the report. [...] pt. She will obtain MRCP disc from [facility] and send to our office. Heidi Mcdonald RN ----- Message ----- From: Lior Linton MD Sent: 01/12/2023 5:41 PM EDT To: MARCEL Love: Please let me know when the MRCP disc is loaded into [employer] for my review. documented in this encounterMercy Health St. [facility]04-24-2023 Instructions* Patient Instructions* Christophe Shaffer APRN.GANG HEAD SAW OPERATOR - 02/02/2023 8:36 AM EDT PATIENT PREOPERATIVE INSTRUCTIONS Lior Linton MD has scheduled you for your procedure at this surgery center: [facility]: [phone] --[id number] [address]. Please check in on the1st floor at [...] Procedures: - YOU MUST HAVE A RESPONSIBLE SNOWBOARDING INSTRUCTOR TAKE YOU HOME. A TROUBLE LOCATER OR TIE BINDER CANNOT BE MADE A RESPONSIBLE SNOWBOARDING INSTRUCTOR. - We recommend that a responsible person [...] Advance Directive, please fax a copy to [phone] or email to for it to be [...] Shaffer APRN.CNP documented in this encounterMercy Health St. [facility]04-24-2023 History and physical note * Christophe Shaffer APRN.CNP - 02/02/2023 8:00 AM EDT Images from the original note were not included. PREANESTHESIA CONSULT CLINIC TELEHEALTH VISIT Patient has been identified by name and date of : Yes This is a virtual visit using Loop Trol[employer] video visit. It require patient-provider interaction for [...] fevers. Neuro: No history of TIA's, stroke, NIGHT TIME NANNY tumor, impaired sensorium, hemiplegia, paraplegia or quadraplegia. No neurological symptoms or problems. Respiratory: No history of current cough or dyspnea, or pneumonia in the past 6 weeks. No history of respiratory/pulmonary symptoms or problems. Cardiovascular: Positive for: DVT/PE, HLD, Negative for Recent CT, Angina, Arrhythmia, CAD, Chest Pain, CHF, HTN, PVD, Valvular Heart Disease GI: SEE HPI Negative for GERD, Nausea, Vomiting, Abdominal pain, Hepatitis, Liver disease, Pancreatitis, Colon cancer, Rectal cancer : No history of dysuria, frequency or incontinence,, stones or chronic kidney disease INTEGRATION SOFTWARE ENGINEER: Negative for abnormal vaginal bleeding, abnormal vaginal [...] device. I spent more than 21-40 minutes [id number] with the patient and over half the time was devoted tocounseling and/or coordination of care. This is a virtual visit. It required patient-provider interaction for the medical decision making as documented above. SIGNATURE: Christophe Shaffer APRN.CNP PATIENT NAME: Magy Castro DATE: February 02, 2023 TIME: 8:45 AM PAGER/CONTACT #: documented in this encounterMercy Health St. 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 [...] (primary diagnosis) The MRCP was done at [facility]. I will review the images after [facility]. We will schedule the patient for EUS with possible FNA especially with the strong family history ofpancreatic cancer. - EGD - THERAPEUTIC, EUS, OR TUBE INTERVENTIONS 2. Family history of pancreatic cancer - ICD9: V16.0, ICD10: Z80.0 Brother at age 51 from electro mechanic cancer. He was not smoker or alcoholic. 3. History of endometrial cancer - ICD9: V10.42, ICD10: Z85.42 History of endometrial cancer stage II diagnosed 2016 and treated with surgery followed by chemo and radiation. Lior Linton MD, FACP documented in this encounterMercy Health St. [facility]01-24-2023 Evaluation note* Encounter Date Diagnosis Assessment Notes Treatment Notes Treatment Clinical Notes Oct, Type 2 diabetes mellitus (ICD-10 - E11.9) Managing type 2 diabetes material was published 1. Uncontrolled, Type 2 diabetes A1C 7.9% 2. Blood glucose levels improved. According to [employer] 2 cgm download 10/22/2022- Avg glucose 173. [...] High blood pressure material was published Oct, FPC current use of insulin (ICD-10 - Z79.4) Oct, B12 deficiency (ICD-10 - E53.8) Good food sources of vitamin B12 material was published 03/2022 Vit b12 >1400 Oct, BMI 45.0-49.9, adult (ICD-10 - Z68.42) Setting weight-loss goals material was published 2 pound weight loss from last visit, continue with weight loss efforts [employer] Other 01-19-2023 Miscellaneous Notes* Telephone Encounter - [...] AM EST Pt saw Dr. Rowland, at [facility] and was given Dr. Linton's name to schedule a ERCP?Dr. Rowland does not do ERCPs Pt stated that Dr. Rowland has sent over pt's medical records?! Pt can be reached at Thanks documented in this encounterMercy Health St. [facility]12-14-2022 Evaluation note* Encounter Date Diagnosis [...] a (ICD-10 - C54.1) Pt reports the GLASS CUTTER HAND at the cancer center ordered a CT [...] blood work was ordered to monitor this. [employer] Other 12-07-2022 History of Present illness Narrative* Юлия Odom APRN.[facility] - 09/17/2022 9:40 AM EST DATE: 09/17/2022 [...] present, cervix not involved HNPCC screening negative ER/IN: negative 2. Chemotherapy with Carboplatin and taxol [...] health maintenance up to date-mammogram completed at [facility] - continue follow up with PCP - RTC in 12 months, sooner prn for issues/concerns. Юлия Odom APRN.VINCE Medical Decision Making: Problems: Low: Stable chronic illness Data: Unique test result(s) reviewed: 1 Risk: Low: Low risk from testing/treatment Medical Decision Making Level: 3 - Low documented in this encounterMercy Health St. [facility]11-02-2022 Miscellaneous Notes* Telephone Encounter - Lavinia Godfrey RN - 08/13/2022 10:56 AM EDT Please sign pending Cre order for Magy Castro for upcoming CT with contrast on 09/11/22. Thank you. Lavinia Godfrey RN documented in this encounterMercy Health St. [facility]10-10-2022 Evaluation note* Encounter Date Diagnosis [...] High blood pressure material was published Jul, long term care social worker current use of insulin (ICD-10 - Z79.4) Jul, B12 deficiency (ICD-10 - E53.8) Good food sources of vitamin B12 material was published 03/2022 Vit b12 >1400 Jul, BMI 45.0-49.9, adult (ICD-10 - Z68.42) Setting weight-loss goals material was published [employer] Other 06-29-2022 Evaluation note* Encounter Date Diagnosis Assessment Notes Treatment Notes Treatment Clinical Notes Mar, Type 2 diabetes mellitus (ICD-10 - E11.9) Managing type 2 diabetes material was published 1. Uncontrolled, Type 2 diabetes A1C 7.1% 2. Blood glucose levels above target. According to [employer] 2 cgm download 03/27/2022- 2 Avg glucose [...] High blood pressure material was published Mar, long term care social worker current use of insulin (ICD-10 - Z79.4) Mar, B12 deficiency (ICD-10 - E53.8) Good food sources of vitamin B12 material was published 03/2022 Vit b12 >1400 Mar, BMI 45.0-49.9, adult (ICD-10 - Z68.42) Making healthy choices at restaurants material was published [employer] Other 06-14-2022 Evaluation note* Encounter Date Diagnosis Assessment Notes Treatment Notes Treatment Clinical Notes Mar, Sinus congestion (ICD-10 - R09.81) [employer] Other 04-20-2022 Evaluation note* Encounter Date Diagnosis Assessment Notes Treatment Notes Treatment Clinical Notes Jan, Type 2 diabetes mellitus (ICD-10 - E11.9) [employer] Other 03-09-2022 Evaluation note* Encounter Date Diagnosis Assessment Notes Treatment Notes Treatment Clinical Notes Dec, Type 2 diabetes mellitus (ICD-10 - E11.9) Managing type 2 diabetes material was published 1. Controlled, Type 2 diabetes A1C 7% 2. Blood glucose levels improved. According to [employer] 2 cgm download 12/05/2021-12/18/2021 Avg glucose 157. [...] pattern. Reviewed with pt option of downloading [employer]Guide kiera to help with carb counting. Pt [...] u100 x1 pen given. Sent fiasp to [employer].. 7. Reviewed with pt if right great [...] High blood pressure material was published Dec, long term care social worker current use of insulin (ICD-10 - Z79.4) Dec, B12 deficiency (ICD-10 - E53.8) Good food sources of vitamin B12 material was published 04/2021 Vit b12 211 on supplement Dec, BMI 45.0-49.9, adult (ICD-10 - Z68.42) Making healthy choices at restaurants material was published Dec, Hypoglycemia associated with type 2 diabetes mellitus (ICD-10 - E11.649) Low blood glucose and diabetes material was published [employer] Other 01-07-2022 Evaluation note* Encounter Date Diagnosis Assessment Notes Treatment Notes Treatment Clinical Notes Oct, Cough (ICD-10 - R05.9) [employer] Other 12-13-2021 Evaluation note* Encounter Date Diagnosis [...] Sep, Vitamin D deficiency (ICD-10 - E55.9) [employer] Other 11-30-2021 Evaluation note* Encounter Date Diagnosis Assessment Notes Treatment Notes Treatment Clinical Notes Aug, Type 2 diabetes mellitus (ICD-10 - E11.9) Managing type 2 diabetes material was published 1. Uncontrolled, Type 2 diabetes A1C 7.2% 2. Blood glucose levels improved, above target. According to [employer] 2 cgm download 08/28/2021- 021 Avg glucose [...] medication issues. 6. Prescriptions: Victoza sent to [facility] [employer] [facility]. Aug, Dietary counseling and surveillance (ICD-10 - Z71.3) Eat well, exercise well, be well: dietary and fitness guidelines material was published Aug, Hyperlipidemia (ICD-10 - E78.5) Managing your cholesterol material was published 04/2021 ldl 75, trig. 164 on statin. 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 Reason for Visit BMI [...] Venous stasis of both lower extremities Cellulitis [facility] Work Phone: chief complaint+Reason for visit Narrative* Chief Complaint Referral [facility] Open Wound pt. see orders Reason for Visit Diabetes mellitus, t ype 2 Dietary counseling and surveillance Exercise counseling Hyperlipidemia Severe obesity (BMI >= 40) Leg ulcer, left Wound infection Diabetes Edema Hemosiderin 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 Inflammation Lymphedema of both lower extremities Obesity Venous stasis of both lower extremities Cellulitis [facility] Work Phone: chief complaint+Reason for visit Narrative* Chief Complaint Referral [facility] Open Wound pt. see orders meter Reason [...] and surveillance Hyperlipidemia Vitamin B 12 deficiency [facility] Work Phone: chief complaint+Reason for visit Narrative* Chief Complaint Referral [facility] Open Wound pt. see orders meter I87.2 [...] and surveillance Hyperlipidemia Vitamin B 12 deficiency [facility] Work Phone: evaluation noteNo InformationNort [employer] Other evaluation noteNo assessment information available [facility] Work Phone: evaluation note* Diagnosis Malignant neoplasm of body of uterus, unspecified site (HCC)- Primary documented in this encounter [facility] [place] [facility]* Diagnosis Encounter for follow-up surveillance of endometrial cancer- Primary Unspecified follow-up examination Pancreatic cyst Cyst and pseudocyst of pancreas Lung nodules Other nonspecific abnormal finding of lung field documented in this encounter [facility]* Diagnosis Pancreatic cyst- Primary Cyst and pseudocyst of pancreas Family history of pancreatic cancer Family history of malignant neoplasm of gastrointestinal tract History of endometrial cancer Personal history of malignant neoplasm of other parts of uterus documented in this encounter [facility]* Diagnosis Pre-op evaluation- Primary Preoperative examination, unspecified Type 2 diabetes mellitus without complication, unspecified whether snf insulin use (HCC) Mixed hyperlipidemia Endometrial cancer (HCC) Malignant neoplasm of corpus uteri, except isthmus Morbid obesity (HCC) Morbid obesity documented in this encounter [facility]* Diagnosis Pancreatic cyst Cyst and pseudocyst of pancreas documented in this encounter 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 Inflammation chronic Lymphedema of both lower extremities chronic Obesity chronic Venous stasis of both lower extremities chronic Candidiasis resolved Cellulitis resolved Venous stasis ulcer of left lower extremity resolved Venous stasis ulcer of right lower extremity resolved [facility] Work Phone: Evaluation note* [...] stasis ulcer of right lower extremity resolved [facility] Work Phone: Evaluation note* Diagnosis Onset Date Resolution Status Diabetes chronic Edema chronic 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 Inflammation chronic Lymphedema of both lower extremities chronic Obesity chronic Venous stasis of both lower extremities chronic Candidiasis resolved Venous stasis ulcer of right lower extremity resolved [facility] Work Phone: Evaluation note* Diagnosis Endometrial ca (HCC)- Primary Malignant neoplasm of corpus uteri, except isthmus documented in this encounter [facility]* Diagnosis Abnormal results of liver function studies- Primary Nonspecific abnormal results of liver function study Cystadenoma Benign neoplasm of unspecified site Pancreatic cyst Cyst and pseudocyst of pancreas Screening for colon cancer Special screening for malignant neoplasms, colon [facility] Diagnosis Onset Date Resolution Status BMI 45.0-49.9, adult acute Diabetes mellitus, type 2 ac [place] Dietary counseling and surveillance acute Hyperlipidemia acute Vitamin B 12 deficiency acut e Diabetes mellitus, type 2 ac [place] Dietary counseling and surveillance acute Exercise counseling acute Hyperlipidemia acute Severe obesity (BMI >= 40) a cute Leg ulcer, left acute Wound infection acute Diabetes chronic Edema chronic 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 Inflammation chronic Lymphedema of both lower extremities chronic Obesity chronic Venous stasis of both lower extremities chronic Cellulitis resolved [facility] Work Phone: Evaluation note* Diagnosis Lung nodule seen on imaging study- Primary Solitary pulmonary nodule History of uterine cancer Personal history of malignant neoplasm of other parts of uterus Lung nodules Other nonspecific abnormal finding of lung field documented [facility] this [facility] [place] [facility] Diagnosis Onset Date Resolution Status Diabetes mellitus, type 2 ac [place] Dietary counseling and surveillance acute Exercise counseling acute Hyperlipidemia acute Severe obesity (BMI >= 40) a cute Leg ulcer, left acute Wound infection acute Diabetes chronic Edema chronic 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 Inflammation chronic Lymphedema of both lower extremities chronic Obesity chronic Venous stasis of both lower extremities chronic Cellulitis resolved [facility] Work Phone: Evaluation note* Diagnosis Onset Date Resolution Status Diabetes mellitus, type 2 ac [place] Dietary counseling and surveillance acute Exercise counseling [...] adult acute Diabetes mellitus, type 2 ac [place] Dietary counseling and surveillance acute Hyperlipidemia acute Vitamin B 12 deficiency acut e [facility] Work Phone: Evaluation note* Diagnosis Lung nodules- Primary Other nonspecific abnormal finding of lung field documented in this encounter [facility] note* Diagnosis Endometrial ca (HCC)- Primary Malignant neoplasm of corpus uteri, except isthmus documented in this encounter [facility] note* Author Asia Merrill [facility] Authored May 30, 2024 8: 55am The above note written by Ozzie TEIXEIRA acting as human recorder, note dictated by Dr. Sherman Larson. 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) Mixed hyperlipidemia Endometrial cancer (HCC) Malignant neoplasm of corpus uteri, except isthmus Morbid obesity (HCC) Morbid obesity Encounter for follow-up surveillance of endometrial cancer- Primary Unspecified follow-up examination Pulmonary nodule Solitary pulmonary nodule Adenopathy Enlargement of lymph nodes documented in this encounter [facility] note* Diagnosis Pre-op evaluation- Primary Preoperative examination, unspecified Type 2 diabetes mellitus without complication, 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) Mixed hyperlipidemia Endometrial cancer (HCC) Malignant neoplasm of corpus uteri, except isthmus Morbid obesity (HCC) Morbid obesity Lung nodules Other nonspecific abnormal finding of lung field documented in this encounter [facility] note* Diagnosis Pre-op evaluation- Primary Preoperative examination, unspecified Type 2 diabetes mellitus without complication, 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) Mixed hyperlipidemia Endometrial cancer (HCC) Malignant neoplasm of corpus uteri, except isthmus Morbid obesity (HCC) Morbid obesity History of uterine cancer Personal history of malignant neoplasm of other parts of uterus Lung nodules Other nonspecific abnormal finding of lung field documented in this encounter [facility] note* Diagnosis Pre-op evaluation- Primary Preoperative examination, unspecified Type 2 diabetes mellitus without complication, unspecified whether snf insulin use (HCC) Mixed hyperlipidemia Endometrial cancer (HCC) Malignant neoplasm of corpus uteri, except isthmus Morbid obesity (HCC) Morbid obesity Lung nodules Other nonspecific abnormal finding of lung field Abnormal results of liver function studies Nonspecific abnormal results of liver function study documented in this encounter [facility] general Narrative - Reported* Type Description [...] See Above Hospitalization History Covid [facility]16[facility]20[facility] - Reported* Type Description Date [...] See Above Hospitalization History Covid 19 10/16/20- [facility] Other History general Narrative - Reported* Type [...] See Above Hospitalization History Covid 19 10/16/20- [facility] - [facility] [employer] Other Progress note Author Hien Poole [facility] April 30, 2023 9:07am Note Date/Time April 30, 2023 9:[address] [facility] [address] [place] [address] Wound Center Provider Note Signed Patient: Magy Castro MR#: [id number] : 1955 Acct:[id number] Age/Sex: 67 / F Copies to: Sherman Larson,DO Hien Poole, EXHIBITS CURATOR~ HPI Date of Visit Date of Visit: Date of Service: 04/30/2023 Time of Service: 09:05 Narrative HPI: 03/25/23 Debbie is a 67 year old female presenting to [facility] wound care for an initial visit [...] interested in seeing the vascular group in [place] but she wants to wait at this [...] wound start?: July 2022 Mode of Arrival/ Rolling Attendant: Personal vehicle Lives with:: Spouse Appetite Description: Within Normal Limits Who helps w/ dressing change?: Wound Care Dept Why Do You Need Help?: Can't Reach Ulcer and Limited mobility Smoking Status: Never smoker [facility] Medical History (Updated 04/30/23 @ 09:07 by [...] Referred By Viky sue Referred To Contact [facility] Diagnoses Pancreatic cyst Procedures EGD - THERAPEUTIC, EUS, OR TUBE INTERVENTIONS EGD INTRMURAL US NEEDLE ASPIRATE/[place] [address] [place] [address] [place] [place] [address] Referral ID Status Reason Start Date Expiration Date Visits Requested Visits Authorized [id number] Authorized Auto-Generat ed Referral 01/07/2023 01/08/2024 1 1 [facility] for referral (narrative)* Outpatient Procedure (Routine) - Closed Specialty Diagnoses / Procedures Referred By Viky sue Referred To Contact [facility] Diagnoses Pancreatic cyst Procedures EGD - THERAPEUTIC, EUS, OR TUBE INTERVENTIONS EGD INTRMURAL US NEEDLE ASPIRATE/[place] [address] [place] [address] [facility] [address] [place] [address] Referral ID Status Reason Start Date Expiration Date V isits Requested Visits Authorized [id number] Closed Auto-Generate d Referral 01/07/2023 01/08/2024 1 1 [facility] for visit Narrative* Outpatient Procedure (Routine) - Closed Specialty Diagnoses / Procedures Referred By Contcharisma t Referred To Contact [facility] Diagnoses Pancreatic cyst Procedures EGD - THERAPEUTIC, EUS, OR TUBE INTERVENTIONS EGD INTRMURAL US NEEDLE ASPIRATE/[place] [address] [place] [address] [facility] [address] [place] [address] Referral ID Status Reason Start Date Expiration Date V isits Requested Visits Authorized [id number] Closed Auto-Generate d Referral 01/07/2023 01/08/2024 [address] [facility] Chief Complaint and Reason for [...] CT ABD & PELVIS W/CONTRAST Юлия Odom, EXHIBITS CURATOR.GANG HEAD SAW OPERATOR [address] [place] [id number] [facility] [place] [address] Referral ID Status Reason Start Date Expiration Date V isits Requested Visits Authorized [id number] Closed Auto-Generate d Referral 03/05/2024 04/04/2025 1 1 Specialty Diagnoses / Procedures Referred By Viky sue Referred To Contact CT IMAGING Diagnoses Encounter for follow-up surveillance of endometrial cancer Pulmonary nodule Adenopathy Procedures CT CHEST W IVCON DIAGNOSTIC COMPUTED TOMOGRAPHY THORAX W/CONTRAST Jules Navas MD [id number] [facility] [place] [address] Referral ID Status Reason Start Date Expiration Date Visits Requested Visits Authorized [id number] New Request Auto-Generat ed Referral 06/01/2024 07/01/2025 1 1 Specialty Diagnoses / Procedures Referred By Contac t Referred To Contact CT IMAGING Diagnoses Encounter for follow-up surveillance of endometrial cancer Pulmonary nodule Adenopathy Procedures CT ABD/PEL W IVCON CT ABD & PELVIS W/CONTRAST Jules Navas MD [address] [place] [address] [address] [facility] [place] [address] Referral ID Status Reason Start Date Expiration Date Visits Requested Visits Authorized [id number] New Request Auto-Generat ed Referral 06/01/2024 07/01/2025 1 1 Specialty Diagnoses / Procedures Referred By Contac t Referred To Contact CT IMAGING Diagnoses Lung nodules Procedures CT CHEST W IVCON DIAGNOSTIC COMPUTED TOMOGRAPHY THORAX W/CONTRAST Юлия Odom, EXHIBITS CURATOR.GANG HEAD SAW OPERATOR [address] [place] [address] [address] [facility] [place] [address] Referral ID Status Reason Start Date Expiration Date Visits Requested Visits Authorized [id number] Authorized Auto-Generat ed Referral 04/11/2024 05/11/2025 1 1 Specialty Diagnoses / Procedures Referred By Contac t Referred To Contact [facility] IMAGING Diagnoses Cystadenoma Pancreatic cyst Procedures MRI 3D POST PROCESSING 3D RENDERING W/INTERP&POSTPROC DIFF WORK STATION Alley Augustin PA-C [address] [place] [address] Mr [facility] [place] [address] Referral ID Status Reason Start Date Expiration Date Visits Requested Visits Authorized [id number] Pending Review Auto-Generat ed Referral 02/17/2024 03/18/2025 1 1 Specialty Diagnoses / Procedures Referred By Contac t Referred To Contact MR IMAGING Diagnoses Abnormal results of liver function studies Procedures MRI PANC/KOBI WO/W IVCON MRI ABDOMEN W/O & W/CONTRAST MATERIAL Alley Augustin PA-C [address] [place] [id number] [place] [address] Referral ID Status Reason Start Date Expiration Date Visits Requested Visits Authorized [id number] Pending Review Auto-Generat ed Referral 02/17/2024 03/18/2025 1 1 Reason SKIN ABNORMALITIES Diagnosis 1 Skin abnormalities ( L98.9) Referral Organization [facility] Referring Provider First Name Rosanne Referring Provider Last Name Tim Referring Provider Specialty Nurse Pract itioner Referred Organization [facility] Referred Provider Chi Cordero Referred Address ,[place], [place],[address] Referred Provider Specialty Dermatology Referral Priority Routine Specialty Diagnoses / Procedures Referred By Viky sue Referred To Contact Gastroenterology Diagnoses Pancreatic cyst Procedures CONSULT TO GASTROENTEROLOGY OFFICE/OUTPATIENT NEW HIGH MDM 60-74 MINUTES Юлия Odom, EXHIBITS CURATOR.GANG HEAD SAW OPERATOR [address] [place] [id number] Referral ID Status Reason Start Date Expiration Date Visits Requested Visits Authorized [id number] Authorized PCP Requested Referral 09/17/2022 09/17/2023 1 [...] DIAGNOSTIC COMPUTED TOMOGRAPHY THORAX W/CONTRAST Юлия Odom, EXHIBITS CURATOR.GANG HEAD SAW OPERATOR [address] [place] [address] Ct Imaging [facility] Referral ID Status Reason Start Date Expiration Date V isits Requested Visits Authorized [id number] Closed Auto-Generate d Referral 04/11/2024 05/11/2025 1 1 Specialty Diagnoses / Procedures Referred By Viky sue Referred To Contact CT IMAGING Diagnoses History of uterine cancer Lung nodules Procedures CT ABD/PEL W IVCON CT ABD & PELVIS W/CONTRAST Юлия Odom APRN.GANG HEAD SAW OPERATOR [address] [place] [address] [place] [address] Referral ID Status Reason Start Date Expiration Date V isits Requested Visits Authorized [id number] Closed Auto-Generate d Referral 03/05/2024 04/04/2025 1 1 Referral ID Status Reason Start Date Expiration Date V isits Requested Visits Authorized [id number] Closed Auto-Generate d Referral 11/04/2023 12/03/2024 1 [...] 2023 End: September 15, 2023 Judith Benitez GLASS CUTTER HAND-C Attending Provider Active Sta rt: September 15, [...] DO Primary Care Provider Active Judith Benitez GLASS CUTTER HAND-C Attending Provider Active Team Status: Inactive Member [...] Primary Care Provider, Attending Provi regan Active Food Service Sales Representatives Relationship Specialty Start Date End Date Sherman Larson, [address] [phone] PCP - General Family Medicine 01/15/16 Food Service Sales Representatives Relationship Specialty Start Date End Date Sherman Larson, [address] [phone] PCP - General Family Medicine 01/15/16 Food Service Sales Representatives Relationship Specialty Start Date End Date Sherman Larson, [address] [phone] PCP - General Family Medicine 01/15/16 Food Service Sales Representatives Relationship Specialty Start Date End Date Sherman Larson, DO [address] [place] [phone] PCP - General Family Medicine 01/15/16 Food Service Sales Representatives Relationship Specialty Start Date End Date Sherman Larson, DO [address] [place] [phone] PCP - General Family Medicine 01/15/16 Food Service Sales Representatives Relationship Specialty Start Date End Date Sherman Larson, [address] [phone] PCP - General Family Medicine 01/15/16 Food Service Sales Representatives Relationship Specialty Start Date End Date Sherman Larson, [address] [phone] PCP - General Family Medicine 01/15/16 Food Service Sales Representatives Relationship Specialty Start Date End Date Sherman Larson DO [address] [place] [phone] PCP - General Family Medicine 01/15/16 Food Service Sales Representatives Relationship Specialty Start Date End Date Sherman Larson DO [address] [place] [address] PCP - General Family Medicine 01/15/16 Team [...] Provider Active St art: March 08, 2024 Food Service Sales Representatives Relationship Specialty Start Date End Date Sherman Larson DO [address] [place] [address] PCP - General Family Medicine 01/15/16 Food Service Sales Representatives Relationship Specialty Start Date End Date Sherman Larson DO [address] [place] [address] PCP - General Family Medicine 01/15/16 Food Service Sales Representatives Relationship Specialty Start Date End Date Sherman Larson DO [address] [place] [address] PCP - General Family Medicine 01/15/16 Food Service Sales Representatives Relationship Specialty Start Date End Date Sherman Larson DO [address] [place] [place] [address] PCP - General Family Medicine 01/15/16 Food Service Sales Representatives Relationship Specialty Start Date End Date Sherman Larson DO [address] [place] [place] [address] PCP - General Family Medicine 01/15/16 Food Service Sales Representatives Relationship Specialty Start Date End Date Sherman Larson DO [address] [place] [place] [address] PCP - General Family Medicine 01/15/16 Team [...] any alcohol or drug abuse patient.[facility] the event this information is protected by the Federal Confidentiality of Alcohol and Drug Abuse Patient Records regulations: The Federal rules restrict any use of the information to criminally investigate or prosecute any alcohol or drug abuse patient.[facility] the event this information is protected by the Federal Confidentiality of Alcohol and Drug Abuse Patient Records regulations: The Federal rules restrict any use of the information to criminally investigate or prosecute any alcohol or drug abuse patient.[facility] the event this information is protected by the Federal Confidentiality of Alcohol and Drug Abuse Patient Records regulations: The Federal rules restrict any use of the information to criminally investigate or prosecute any alcohol or drug abuse patient.[facility] the event this information is protected by the Federal Confidentiality of Alcohol and Drug Abuse Patient Records regulations: The Federal rules restrict any use of the information to criminally investigate or prosecute any alcohol or drug abuse patient.[facility] the event this information is protected by the Federal Confidentiality of Alcohol and Drug Abuse Patient Records regulations: The Federal rules restrict any use of the information to criminally investigate or prosecute any alcohol or drug abuse patient.[facility] the event this information is protected by the Federal Confidentiality of Alcohol and Drug Abuse Patient Records regulations: The Federal rules restrict any use of the information to criminally investigate or prosecute any alcohol or drug abuse patient.[facility] the event this information is protected by the Federal Confidentiality of Alcohol and Drug Abuse Patient Records regulations: The Federal rules restrict any use of the information to criminally investigate or prosecute any alcohol or drug abuse patient.[facility] CenterIn the event this information is protected by the Federal Confidentiality of Alcohol and Drug Abuse Patient Records regulations: The Federal rules restrict any use of the information to criminally investigate or prosecute any alcohol or drug abuse patient.[facility] CenterIn the event this information is protected by the Federal Confidentiality of Alcohol and Drug Abuse Patient Records regulations: The Federal rules restrict any use of the information to criminally investigate or prosecute any alcohol or drug abuse patient.[facility] CenterIn the event this information is protected by the Federal Confidentiality of Alcohol and Drug Abuse Patient Records regulations: The Federal rules restrict any use of the information to criminally investigate or prosecute any alcohol or drug abuse patient.[facility] CenterIn the event this information is protected by the Federal Confidentiality of Alcohol and Drug Abuse Patient Records regulations: The Federal rules restrict any use of the information to criminally investigate or prosecute any alcohol or drug abuse patient.[facility] CenterIn the event this information is protected by the Federal Confidentiality of Alcohol and Drug Abuse Patient Records regulations: The Federal rules restrict any use of the information to criminally investigate or prosecute any alcohol or drug abuse patient.[facility] CenterIn the event this information is protected by the Federal Confidentiality of Alcohol and Drug Abuse Patient Records regulations: The Federal rules restrict any use of the information to criminally investigate or prosecute any alcohol or drug abuse patient.[facility] CenterIn the event this information is protected by the Federal Confidentiality of Alcohol and Drug Abuse Patient Records regulations: The Federal rules restrict any use of the information to criminally investigate or prosecute any alcohol or drug abuse patient.[facility] CenterIn the event this information is protected by the Federal Confidentiality of Alcohol and Drug Abuse Patient Records regulations: The Federal rules restrict any use of the information to criminally investigate or prosecute any alcohol or drug abuse patient.[facility] CenterIn the event this information is protected by the Federal Confidentiality of Alcohol and Drug Abuse Patient Records regulations: The Federal rules restrict any use of the information to criminally investigate or prosecute any alcohol or drug abuse patient.[facility] CenterIn the event this information is protected by the Federal Confidentiality of Alcohol and Drug Abuse Patient Records regulations: The Federal rules restrict any use of the information to criminally investigate or prosecute any alcohol or drug abuse patient.[facility] CenterIn the event this information is protected by the Federal Confidentiality of Alcohol and Drug Abuse Patient Records regulations: The Federal rules restrict any use of the information to criminally investigate or prosecute any alcohol or drug abuse patient.[facility] CenterIn the event this information is protected by the Federal Confidentiality of Alcohol and Drug Abuse Patient Records regulations: The Federal rules restrict any use of the information to criminally investigate or prosecute any alcohol or drug abuse patient.[facility] INFORMATION SOURCE (unrecogn ized section and content) DATE CREATED AUTHOR 04/12/2024 [facility] DATE CREATED AUTHOR 'S ORGANIZ ATION 06/02/2024 [facility] DATE CREATED AUTHOR AUTHOR'S CALVIN ATION 06/22/2024 [facility] FOR RECORDS PERTAINING TO PATIENTS [...] BASED ON THE PRIMARY CLINICAL RECORDS. [facility] [employer] [facility]. provides no warranty or guarantee of the accuracy or completeness of information in this document.
--- NOTE | 2024-07-06 09:56 | P.DS_ITS ---
Discharge Plan Discharge Disposition: Home, Self-Care Discharge Medications: No Action metformin 1,000 mg tablet 1,000 mg PO DAILY Jardiance 25 mg tablet 25 mg PO DAILY ibuprofen 200 mg capsule 200 mg PO TID-QID PRN (Reason: pain) liraglutide [Victoza 2-Enoc] 0.6 mg/0.1 mL (18 mg/3 mL) pen injector See Rx Instructions .ROUTE .COMPLEX Rx Instructions: inject 0.6mg subcutaneously once daily x 7 days; then 1.2mg daily, not to exceed 1.8mg/day insulin glargine [Lantus U-100 Insulin] subcut insulin aspart (niacinamide) [Fiasp Penfill U-100 Insulin] subcut aspirin .Route Patient Comments: 325 mg Follow Up Appointments: 1-2 years or as needed Plan of Treatment: Patient done with treatment at this time. Print Language: Upper Sorbian Discharge Date/Time: 07/06/24 09:57
== END 2024-07-06 09:57 | disposition home or self-care (01) ==
PROVIDERS: PCP Radiology Diagnostic Radiology; Visit Provider Radiology Diagnostic Radiology
DX: I80.02 Phlebitis and thrombophlebitis of superficial vessels of left lower extremity (principal)
CPT/HCPCS: 93971; G0463